=== PATIENT | male | born 1970 ===

== ENCOUNTER 2020-04-17 10:06 | Outpatient (RCR) | payer OTHER, SELFPAY ==
[2020-04-17 13:08] LABS: Blood Urea Nitrogen 14 mg/dL (9-16); Estimated Glomerular Filt Rate > 60
== END 2020-05-27 12:00 | disposition home or self-care (01) ==
LOC: HO.WCC 10:06
PROVIDERS: Visit Provider Physician Assistant Surgical
DX: E11.621 Type 2 diabetes mellitus with foot ulcer (principal); L97.523 Non-pressure chronic ulcer of other part of left foot with necrosis of muscle; E11.51 Type 2 diabetes mellitus with diabetic peripheral angiopathy without gangrene; L08.9 Local infection of the skin and subcutaneous tissue, unspecified; L03.116 Cellulitis of left lower limb; F17.210 Nicotine dependence, cigarettes, uncomplicated; Z79.2 Long term (current) use of antibiotics
CPT/HCPCS: 10061; 82565; 84520; 99213

== ENCOUNTER 2020-04-22 12:03 | Outpatient (REF) | payer OTHER, SELFPAY ==
--- NOTE | 2020-04-22 12:11 | MR_ITS ---
EXAMINATION: MRI LEFT FOOT CLINICAL INFORMATION: Left foot infection, deep abscess, osteomyelitis. COMPARISON: Prior x-rays including 04/02/2020. TECHNIQUE: Imaging of the left foot without contrast in a high-field magnet. FINDINGS: Incomplete study. Technologist notes indicate limited study. No contrast. Patient in pain, involuntary motion. Unable to complete the study. Limited evaluation on the provided sequences. There is a sagittal STIR, T1 sequence; short axis STIR sequence. There is significant motion artifact on the sequences degrading images, limiting evaluation. There is soft tissue swelling on the plantar aspect of the midfoot, with ultrasound as ulceration.. There is a focus of low T1 and T2-signal in the plantar soft tissues extending from the area of ulceration, superiorly to the region of the plantar aponeurosis. This measures approximately 2.8 cm in AP length, and measures 1 cm transverse, 0.4 cm AP. For example reference images 4:17-18; image 6:15-10. This of uncertain etiology, could represent a foreign body or perhaps wound packing material.. There is prominent surrounding T2 bright signal. This is contiguous with T2 bright focus extending both medially and laterally, overall extending over a distance of approximally 5.6 cm transverse, 5.6 cm in length. Reference image 15 series 6. There is ill-defined edema in the plantar subcutaneous tissues more anteriorly as well. Findings are incompletely evaluated and could represent infectious or inflammatory process, and could represent phlegmonous change, with abscess not excluded. Limited incomplete evaluation of the osseous structures. No definite gross evidence of osteomyelitis is seen. There is edema in the intrinsic muscles of the foot, which may reflect sequela of denervation changes, myositis. IMPRESSION: 1. Limited incomplete study. There is incomplete evaluation of the structures. Repeat MRI is recommended. 2. Soft tissue swelling and ulceration on the plantar aspect of the midfoot. There is a linear focus of low signal in the plantar soft tissues extending from the area of the skin ulceration dorsally to the level of the plantar aponeurosis measuring 2.8 x 1 x 0.4 cm. This is incompletely evaluated, and could represent foreign body, packing gauze. Please clinically correlate. There is prominent surrounding T2-signal surrounding this abnormal focus, as well as T2 bright focus extending in the plantar soft tissues medially and laterally, as detailed above. Additional plantar subcutaneous T2-signal changes/edema more anteriorly as well. This is incompletely evaluated, which could represent infectious or inflammatory process, with phlegmonous changes, abscess not excluded. 3. Diffuse edema in the intrinsic muscles of foot, differential considerations include sequela of denervation changes, myositis. This critical result was discussed with Dr. Holm at 4:45 PM on 04/22/2020 and it was ascertained that the content and urgency of the report was understood at the time of direct communication.
== END 2020-04-22 12:04 | disposition home or self-care (01) ==
LOC: HO.MRI 12:03
PROVIDERS: Visit Provider Surgery
DX: L08.9 Local infection of the skin and subcutaneous tissue, unspecified (principal)
CPT/HCPCS: 73718

== ENCOUNTER 2020-04-27 13:37 | Inpatient (IN) | payer OTHER, SELFPAY ==
[2020-04-27] VITALS (7 sets, daily range): BP systolic 144–192; BP diastolic 87–106; PULSE 83–102; RESP 16–19; TEMP 37.1–37.8; O2SAT 96–99; BMI 38.3
--- NOTE | 2020-04-27 14:18 | ED.WOUNDLAC ---
HPI - Wound/Laceration General Chief Complaint: Wound/Laceration Stated Complaint: fluid on bottom of l foot Time Seen by Provider: 04/27/20 14:18 Source: patient Mode of arrival: ambulatory Limitations: no limitations History of Present Illness HPI narrative: 49 yo male with DM has chronic L foot wound but wound is worsening he has more swelling over the past few days and is currently on doxycycline he now notes that there is purulence coming out of his wounds this past weekend, had MRI on 04/22 RESULTS of MRI 1. Limited incomplete study. There is incomplete evaluation of the structures. Repeat MRI is recommended. 2. Soft tissue swelling and ulceration on the plantar aspect of the midfoot. There is a linear focus of low signal in the plantar soft tissues extending from the area of the skin ulceration dorsally to the level of the plantar aponeurosis measuring 2.8 x 1 x 0.4 cm. This is incompletely evaluated, and could represent foreign body, packing gauze. Please clinically correlate. There is prominent surrounding T2-signal surrounding this abnormal focus, as well as T2 bright focus extending in the plantar soft tissues medially and laterally, as detailed above. Additional plantar subcutaneous T2-signal changes/edema more anteriorly as well. This is incompletely evaluated, which could represent infectious or inflammatory process, with phlegmonous changes, abscess not excluded. 3. Diffuse edema in the intrinsic muscles of foot, differential considerations include sequela of denervation changes, myositis. Onset (ago): week(s) Extremity Location: left: foot Place: home Patient tetanus UTD: Yes Context: accidental Associated symptoms: pain and loss of feeling/numbness Related Data Home Medications Medication Instructions Recorded Confirmed doxycycline hyclate 100 mg PO BID 04/27/20 meloxicam 7.5 mg PO DAILY 04/27/20 Allergies Allergy/AdvReac Type Severity Reaction Status Date / Time Penicillins [PENICILLINS] Allergy Unknown UNKNOWN Verified 04/27/20 14:30 Review of Systems Review of Systems: Constitutional : No Fever, No Chills ENT/Mouth : No sore throat, No Rhinorrhea Eyes: No Eye Pain, No Swelling, No Redness Cardiovascular : No Chest Pain, No SOB Respiratory : No Cough, No Sputum Gastrointestinal : No Nausea, No Vomiting, No Diarrhea, No abdominal Pain Genitourinary : No Dysuria, No Hematuria Musculoskeletal : positive joint pain, No Myalgias, No Joint Swelling Skin : No Skin Lesions, positive skin rash Neuro : No Weakness, No Numbness, No Headache Psych : No Anxiety, No Depression Heme/Lymph: No Bruising, No Bleeding,No Lymphadenopathy Endocrine : No Polyuria, No Polydipsia All other systems reviewed and are negative [facility] Past Medical History Medical History Asthma Diabetes Neuropathy Umbilical hernia Surgical History H/O hernia repair Social History Social History (Updated 04/27/20 @ 14:40 by Shena Gutierrez DO) Smoking Status: Current every day smoker Use of substances other than those prescribed or required for medical reasons: No Advance Directives: No Advance Directives Information Provided: No Physical Exam Vital Signs: Vital Signs: Vital Signs Temp Pulse Resp BP Pulse Ox 04/27/20 15:34 98.8 F 83 16 169/95 H 99 04/27/20 14:23 99.4 F 95 18 192/106 H 99 Body Mass Index 38.3 Appearance: Alert. Oriented X3. No acute distress. Eyes: Pupils equal, round and reactive to light. ENT: Pharynx normal. Neck: Normal inspection. Neck supple. CVS: Normal heart rate and rhythm. Pulses normal. Respiratory: No respiratory distress. Breath sounds normal. Abdomen: Soft and nontender. Skin: Skin warm and dry. Normal skin color. Normal skin turgor. Extremities: LLE mild non pitting edema of ankle, L foot plantar surface open wound noted with medium purulent area near the ball of foot, purulence comes out of wound with very strong odor, foot is swollen/warm to touch/erythematous. No calf ttp Neuro: Oriented X 3. No motor deficit. No sensory deficit. Course Course Course Narrative: Dr. Keane will I/D tomorrow after admission and IV antibiotics MDM - Wound/Laceration MDM Narrative Medical decision making narrative: 49 yo DM male with hx of foot ulcer now worsening and with purulence coming out of wound, already on doxy at home, will need labs, cultures, IV antibiotics, surgery consult and admission for further IV antibiotics Discharge Plan Discharge Prescriptions: No Action doxycycline hyclate 100 mg capsule 100 mg PO BID RF: 0 meloxicam 7.5 mg tablet 7.5 mg PO DAILY RF: 0
[2020-04-27 16:48] LABS: MANUAL DIFF FLAG NO
[2020-04-27 16:49] LABS: Basophils Percent Auto 0.3 % (0-2); Eosinophils Absolute Auto 0.3 X10*3/uL (0.0-0.4); Eosinophils Percent Auto 2.5 % (0-4); Hematocrit 39.2 % (42-52); Hemoglobin 12.2 g/dl (14.0-18.0); Imm Gran Abs Auto 0.05 X10*3/uL (0.00-0.03); Imm Gran Pct Auto 0.4 % (0.0-0.4); Lymphocytes Absolute Auto 1.3 X10*3/uL (1.2-4.9); Lymphocytes Percent Auto 11.1 % (20-40); Mean Corpuscular HGB Conc 31.1 g/dl (31.0-36.0); Mean Corpuscular Hemoglobin 26.5 pg (27.0-33.0); Mean Corpuscular Volume 85.2 fL (80-98); Mean Platelet Volume 10.5 fL (9.4-12.4); Monocytes Percent Auto 8.7 % (2-11); Neutrophils Absolute Auto 8.8 X10*3/uL (2.0-8.3); Platelet Count 403 X10*3/uL (160-400); Red Cell Distribution Width 12.5 % (11.0-16.0); White Blood Count 11.4 X10*3/uL (4.8-10.8)
[2020-04-27] MEDS: ondansetron HCL 4 MG/2 ML VIAL IVPUSH (16:53)
[2020-04-27] MEDS: Morphine Sulfate 4 MG/ML CARTRIDGE IVPUSH (16:53)
[2020-04-27 16:56] LABS: INTERNATIONAL NORM RATIO 1.1 (0.9-1.1)
[2020-04-27] MEDS: levoFLOXacin/D5W 500 MG/100 ML PIGGYBACK 100 MG IV (16:58)
[2020-04-27 16:59] LABS: Partial Thromboplastin Time 41.2 SEC (24.1-38.0)
[2020-04-27 17:16] LABS: Lactic Acid 1.8 mmol/L (0.5-2.0)
[2020-04-27 17:26] LABS: Alanine Aminotransferase 13 U/L (0-40); Albumin Level 3.3 g/dL (3.5-5.0); Alkaline Phosphatase 109 U/L (39-117); Anion Gap 14 (12-20); Aspartate Amino Transferase 10 U/L (5-37); Bilirubin Direct < 0.2 mg/dL (0.0-0.5); Bilirubin Total 0.2 mg/dL (0.0-1.0); Blood Urea Nitrogen 15 mg/dL (9-16); Calcium 8.8 mg/dL (8.4-10.2); Carbon Dioxide 31 mmol/L (22-29); Chloride 99 mmol/L (96-108); Creatinine Clr Calc Pharmacy 96.6; Estimated Glomerular Filt Rate > 60; Glucose Random 401 mg/dL (60-115); Magnesium 2.1 mg/dL (1.6-2.6); Potassium 4.6 mmol/l (3.3-5.1); Sodium 139 mmol/L (135-145); Total Protein 6.7 g/dL (6.5-8.0)
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
--- NOTE | 2020-04-27 20:48 | PC.NURSE ---
POC IS 334 ,RN RADHA AWARE.
--- NOTE | 2020-04-27 20:52 | PM.IMHP ---
History of Present Illness Date of Service: 04/27/20 Chief Complaint: left foot wound 49 y/o male with PMHX of Uncontrolled DM who presented from home due to left foot wound. Per patient's history, for the past 1 month has been having a left foot wound which has been worsening with time and now is associated with a purulent discharge and chills. Patient has been evaluated multiple times by wound care clinic, one week ago had an MRI which was positive for swelling of the plantar surface of left foot with phlegmonous changes suspected for underlying abscess and myositis. General surgery was consulted Dr Keane who upon evaluation of the patient recommends I and D in the am with possible debridement and Medicine admission for IV antbx. Medicine admission given. Patient seen and evaluated at the bedside, ROS as above otherwise negative. Physical exam positive for left foot ulcer with clean margins, no evidence of discharge. Gauze applied. PMHX: Uncontrolled DM, smoker, Obese PSx: none Toxic habits: No hx of alcohol abuse or IVDA, Hx of smoking Review of Systems Constitutional: Constitutional: Reports other (left foot purulent wound ) Neurologic: Denies focal weakness and Denies convulsions [facility] Medical History Asthma Diabetes Neuropathy Umbilical hernia Functional capacity: independent ambulation Family history: reviewed and not pertinent Surgical History H/O hernia repair Social History Alcohol intake: never Smoking Status: Current every day smoker Use of substances other than those prescribed or required for medical reasons: No Advance Directives: No Advance Directives Information Provided: No Meds Allergies Allergy/AdvReac Type Severity Reaction Status Date / Time Penicillins [PENICILLINS] Allergy Unknown UNKNOWN Verified 04/27/20 14:30 Home Medications Medication Instructions Recorded Confirmed Type doxycycline hyclate 100 mg PO BID 04/27/20 04/27/20 History meloxicam 7.5 mg PO DAILY 04/27/20 04/27/20 History Physical Exam Vital Signs and Narrative: Vital Signs: Last Vital Signs Temp 99.1 F 04/27/20 20:49 Pulse 93 04/27/20 20:49 Resp 16 04/27/20 20:49 BP 154/92 H 04/27/20 20:49 Pulse Ox 96 04/27/20 20:49 Body Mass Index 38.3 Const: General: cooperative, healthy appearing and comfortable Orientation/consciousness: patient oriented x3 HENMT: Head: Yes normal to inspection Eyes: General: appearance normal, both eyes and all related structures Neck: Yes normal visual inspection Chest: Chest palpation & inspection: normal inspection of the chest Resp: Effort & Inspection: normal respiratory effort Auscultation: clear to auscultation bilaterally Cardio: Jugular venous distension: no JVD Rhythm: regular rhythm Heart sounds: S1 normal heart sound present and S2 normal heart sound present GI: Inspection: Yes normal to inspection Skin: Nails: other (left foot wound in plantar aspect of approximately 5 cm in diameter, clean ) Neuro: General: patient oriented x3 Psych: Appearance: grossly normal Results Labs Labs: Laboratory Tests 04/27/20 04/27/20 04/27/20 16:38 16:38 16:38 WBC 11.4 H RBC 4.60 Hgb 12.2 L Hct 39.2 L MCV 85.2 MCH 26.5 L MCHC 31.1 RDW 12.5 Plt Count 403 H MPV 10.5 Immature Gran % (Auto) 0.4 Neut % (Auto) 77.0 H Lymph % (Auto) 11.1 L [place] % (Auto) 8.7 Eos % (Auto) 2.5 Baso % (Auto) 0.3 Lymph # (Auto) 1.3 [place] # (Auto) 1.0 Eos # (Auto) 0.3 Baso # (Auto) 0.0 Abs Immat Gran (auto) 0.05 H Absolute Neuts (auto) 8.8 H Absolute Nucleated RBC 0.000 Nucleated RBC % (auto) 0.0 PT 13.0 INR 1.1 APTT 41.2 H Sodium 139 Potassium 4.6 Chloride 99 Carbon Dioxide 31 H Anion Gap 14 BUN 15 Creatinine 1.10 Estim Creat Clear Calc 96.6 Estimated GFR > 60 Random Glucose 401 H* Lactic Acid Calcium 8.8 Magnesium 2.1 Total Bilirubin 0.2 Direct Bilirubin < 0.2 AST 10 ALT 13 Alkaline Phosphatase 109 Total Protein 6.7 Albumin 3.3 L 04/27/20 16:38 WBC RBC Hgb Hct MCV MCH MCHC RDW Plt Count MPV Immature Gran % (Auto) Neut % (Auto) Lymph % (Auto) [place] % (Auto) Eos % (Auto) Baso % (Auto) Lymph # (Auto) [place] # (Auto) Eos # (Auto) Baso # (Auto) Abs Immat Gran (auto) Absolute Neuts (auto) Absolute Nucleated RBC Nucleated RBC % (auto) PT INR APTT Sodium Potassium Chloride Carbon Dioxide Anion Gap BUN Creatinine Estim Creat Clear Calc Estimated GFR Random Glucose Lactic Acid 1.8 Calcium Magnesium Total Bilirubin Direct Bilirubin AST ALT Alkaline Phosphatase Total Protein Albumin Assessment and Plan (1) Diabetic ulcer of foot associated with diabetes mellitus due to underlying condition, with fat layer exposed: Qualifiers: Diabetic foot ulcer location: unspecified part of foot Laterality: left Qualified Code(s): E08.621 - Diabetes mellitus due to underlying condition with foot ulcer; L97.522 - Non-pressure chronic ulcer of other part of left foot with fat layer exposed Status: Acute (2) Obesity: Status: Acute (3) Smoker: Status: Acute Start with Vancomycin for gram positive coverage Follow up vanco trough as ordered Start with Levaquin given patient is penicillin allergic. For gram neg coverage Follow up Bcx I and D with possible debridement in the am by general surgery Dr Keane Insulin regimen as ordered. Keep BS between 140-180 mg/dl follow up hemoglobin A1C
[2020-04-27 20:55] LABS: Glucose, Whole Blood 334 mg/dL (60-115)
--- NOTE | 2020-04-27 22:10 | PC.NURSE ---
called floor to give report.
--- NOTE | 2020-04-27 22:14 | PC.NURSE ---
DENIES SYMPTOMS OF ELEVATED B/P. NO S/S OF DISTRESS
[2020-04-27 22:41] LABS: SARS COV2 PCR INHOUSE NEGATIVE (Negative)
--- NOTE | 2020-04-27 22:52 | PC.NURSE ---
Report given to medical office specialist. Pt is ready for transfer.
[2020-04-27] MEDS: 0.9 % Sodium Chloride Flush 3 ML SYRINGE IVFLUSH (23:44)
[2020-04-28] VITALS (15 sets, daily range): BP systolic 124–189; BP diastolic 73–96; PULSE 72–105; RESP 16–21; TEMP 36.2–38.1; O2SAT 93–99; BMI 38.3
[2020-04-28] MEDS: Morphine Sulfate 2 MG/ML CARTRIDGE 1 MG IVPUSH (02:46)
[2020-04-28 06:42] LABS: Basophils Percent Auto 0.2 % (0-2); Eosinophils Absolute Auto 0.3 X10*3/uL (0.0-0.4); Eosinophils Percent Auto 2.1 % (0-4); Hematocrit 35.3 % (42-52); Hemoglobin 11.1 g/dl (14.0-18.0); Imm Gran Abs Auto 0.06 X10*3/uL (0.00-0.03); Imm Gran Pct Auto 0.5 % (0.0-0.4); Lymphocytes Absolute Auto 1.4 X10*3/uL (1.2-4.9); Lymphocytes Percent Auto 11.2 % (20-40); MANUAL DIFF FLAG SCAN; Mean Corpuscular HGB Conc 31.4 g/dl (31.0-36.0); Mean Corpuscular Hemoglobin 26.4 pg (27.0-33.0); Mean Platelet Volume 10.8 fL (9.4-12.4); Monocytes Absolute Auto 1.5 X10*3/uL (0.1-1.2); Monocytes Percent Auto 12.5 % (2-11); Neutrophils Absolute Auto 8.9 X10*3/uL (2.0-8.3); Neutrophils Percent Auto 73.5 % (45-73); Platelet Count 386 X10*3/uL (160-400); Red Cell Distribution Width 12.5 % (11.0-16.0); SCAN SMEAR FLAG 1; White Blood Count 12.1 X10*3/uL (4.8-10.8)
[2020-04-28 06:59] LABS: Estimated Average Glucose 289 mg/dL; Hemoglobin A1c % 11.7 %
[2020-04-28 07:05] LABS: Anion Gap 12 (12-20); Blood Urea Nitrogen 14 mg/dL (9-16); Calcium 8.2 mg/dL (8.4-10.2); Carbon Dioxide 26 mmol/L (22-29); Chloride 101 mmol/L (96-108); Creatinine Clr Calc Pharmacy 107.3; Estimated Glomerular Filt Rate > 60; Glucose Random 296 mg/dL (60-115); Potassium 4.4 mmol/l (3.3-5.1); Sodium 135 mmol/L (135-145)
[2020-04-28 07:09] LABS: Glucose, Whole Blood 260 mg/dL (60-115)
[2020-04-28] MEDS: 0.9 % Sodium Chloride Flush 3 ML SYRINGE IVFLUSH ×3 (07:13→23:10)
[2020-04-28 08:01] LABS: SLIDE REVIEW VERIFIED
[2020-04-28] MEDS: NaPROXEN 250 MG TABLET PO (08:31)
[2020-04-28] MEDS: Insulin Lispro 100 UNIT/ML 3 ML VIAL SUBCUT ×3 (08:32→20:57)
--- NOTE | 2020-04-28 10:47 | MHC.CM.PN ---
dc plan home no servcies ,pt has own transportaion home when she is dcd
[2020-04-28 11:12] LABS: Glucose, Whole Blood 190 mg/dL (60-115)
[2020-04-28] MEDS: ceFAZolin Sodium/Dextrose,Iso 2 GM/50 ML PIGGYBACK IV (12:11)
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
--- NOTE | 2020-04-28 12:29 | MHC.SHP ---
Pre-Procedural Eval Section B Chief Complaint: LEFT FOOT DIABETIC ULCER Allergies: Allergies Allergy/AdvReac Type Severity Reaction Status Date / Time Penicillins [PENICILLINS] Allergy Mild Rash Verified 04/28/20 10:57 Plan Patient has been examined and remains a candidate for the planned procedure
--- NOTE | 2020-04-28 13:07 | HO.PM.IMPN ---
Subjective Subjective Date of Service: 04/28/20 Interval History: Patient seen and examined at bedside patient reported pain in his foot Physical Exam Vital Signs: Vital Signs: Vital Signs Temp Pulse Resp BP Pulse Ox 04/28/20 11:40 97.2 F 80 16 158/90 H 99 04/28/20 11:11 97.5 F 83 17 174/93 H 97 04/28/20 07:03 99.7 F 93 21 H 168/78 H 98 04/28/20 05:10 99.0 F 04/28/20 04:00 100.6 F H 93 18 186/78 H 97 04/28/20 00:00 97.1 F 72 18 144/73 H 93 04/27/20 22:12 100.0 F 97 17 180/95 H 98 04/27/20 20:49 99.1 F 93 16 154/92 H 96 04/27/20 19:45 99.1 F 85 16 144/87 H 97 04/27/20 17:48 99.8 F 102 H 19 165/96 H 99 04/27/20 16:53 19 04/27/20 15:34 98.8 F 83 16 169/95 H 99 04/27/20 14:23 99.4 F 95 18 192/106 H 99 Body Mass Index 38.3 Const: General: cooperative, healthy appearing and comfortable Orientation/consciousness: patient oriented x3 HENMT: Head: Yes normal to inspection Eyes: General: appearance normal, both eyes and all related structures Neck: Neck: Yes normal visual inspection Chest: Chest palpation & inspection: normal inspection of the chest Resp: Effort & Inspection: normal respiratory effort Auscultation: clear to auscultation bilaterally Cardio: Jugular venous distension: no JVD Rhythm: regular rhythm Heart sounds: S1 normal heart sound present and S2 normal heart sound present GI: Inspection: Yes normal to inspection Skin: Nails: other (left foot wound in plantar aspect of approximately 5 cm in diameter, clean ) Neuro: General: patient oriented x3 Psych: Appearance: grossly normal Objective Data Current Medications Generic Name Dose Route Start Last Admin Trade Name Freq PRN Reason Stop Dose Admin Heparin Sodium (Porcine) 5,000 unit 04/28/20 13:00 Heparin Sodium,Porcine 5,000 Unit/Ml Vial SUBCUT Q8H [facility] Levofloxacin 750 mg in 150 mls @ 100 mls/hr 04/28/20 17:00 Levaquin IV Q24H [facility] Vancomycin HCl 1,500 mg/ 300 mls @ 200 mls/hr 04/28/20 07:00 04/28/20 08:53 Sodium Chloride IV Infused Q12H [facility] Infusion Insulin Human Lispro 5 unit 04/28/20 07:30 04/28/20 08:32 Insulin Lispro 100 Unit/Ml 3 Ml Vial SUBCUT 5 unit QIDACHS [facility] Administration Naproxen 250 mg 04/28/20 09:00 04/28/20 08:31 Naproxen 250 Mg Tablet PO 250 mg BID [facility] Administration Pharmacy Consult 1 each 04/27/20 14:29 Consult Rx Perform Med Rec MISCELLANE ONCE PRN Consult order Sodium Chloride 3 ml 04/28/20 00:00 04/28/20 07:13 0.9 % Sodium Chloride Flush 3 Ml Syringe IVFLUSH 3 ml QSHIFT [facility] Administration Labs CBC & Chem 7: 04/28/20 05:58 04/28/20 05:58 Assessment and Plan (1) Diabetic ulcer of foot associated with diabetes mellitus due to underlying condition, with fat layer exposed: Status: Acute (2) Obesity: Status: Acute (3) Smoker: Status: Acute Assessment and Plan: left diabetic foot infection with cellulitis continue Vanco and Levaquin monitor Vanco trough follow-up cultures id and surgery consulted plan for I and D in the OR by surgery today diabetes mellitus patient reported he was not taking his medication continue sliding scale insulin monitor blood glucose DVT prophylaxis heparin subcu
--- NOTE | 2020-04-28 13:08 | PM.OP ---
Brief Operative Note Date of procedure: 04/28/20 Pre-op diagnosis: diabetic foot ulcer, left with abscess Post-op diagnosis: same Procedure: incision and drainage of left foot abscess Surgeon: TABITHA BRAVO MD Anesthesia: [employer] Teacher: Aixa Navarrete Estimated blood loss (mL): 10 Pathology: other (culture left foot abscess) Condition: stable Disposition: PACU
[2020-04-28] MEDS: oxyCODONE HCl Immed Release 5 MG TABLET PO ×2 (13:19→20:56)
--- NOTE | 2020-04-28 14:05 | OP_ITS ---
SURGEON: Guido Keane MD INDICATIONS: The patient is a 49-year-old male, who has had diabetes, who was had an ulcer on the left foot for about 2 to 3 months. This has been gradually worsening with increasing swelling, pain and tenderness. He had an MRI suggestive of phlegmonous changes versus an abscess on the plantar aspect of the left foot last week. He was therefore referred by the [facility]. He was admitted last night for this. I explained to him the technique of this planned procedure. He had significant swelling on the entire left foot mostly on the plantar aspect with ulcer and drainage. He understood the risks, benefits, and alternatives, and he had given consent. PREOPERATIVE DIAGNOSIS: Plantar abscess, with necrotic skin and subcutaneous tissue, left foot. POSTOPERATIVE DIAGNOSIS: Plantar abscess, with necrotic skin and subcutaneous tissue, left foot. PROCEDURE PERFORMED: I and D of plantar abscess with excisional debridement of the left foot. ESTIMATED BLOOD LOSS: COMPLICATIONS: ANESTHESIA: ASSISTANTS: SPECIMENS: DESCRIPTION OF PROCEDURE: He was brought to the operating room and placed in supine position under general anesthesia via laryngeal mask airway. The left foot was prepped and draped in usual sterile fashion. A surgical time-out was done. The patient received cefazolin 2 g IV preoperatively. Examination of the plantar aspect of the left foot revealed a very large induration. There was cellulitis as well along with an ulcer.. I opened sole longitudinally using blade #15 through the skin and subcutaneous layer to enter this cavity. There was a small amount of pus that was drained. Cultures of these were taken. I extended the incision to expose the entire cavity. This was about 6 to 7 cm long incision to open up the entire subcutaneous layer of the plantar aspect. I used my finger to bluntly dissect the cavity to make sure that there were no loculations. There was no other sinus tracts that I could feel. I excised the nonviable skin and subcutaneous tissue using Turcios scissors. I copiously irrigated this big abscess cavity. I then packed this with 1-inch iodoform. I applied thick dressings and wrapped the entire foot with a Kerlix roll. The patient tolerated the procedure well. There were no complications noted. He was extubated without difficulty in the operating room and transferred to recovery room with stable vital signs. Minimal blood loss about 25 mL. Initial and final counts of sponges and instruments were correct. MD DONNA Winslow/MODL / [id number] C[place]
[2020-04-28] MEDS: Heparin Sodium,Porcine 5,000 UNIT/ML VIAL 5000 UNIT SUBCUT ×2 (14:16→20:56)
--- NOTE | 2020-04-28 15:23 | MHC.CM.PN ---
nurse care manger note PER DOCUMENTATION PATIENT WENT TO SURGERY TODAY ,(SIGNIFICANT SWELLING OF THE ENTIRE LEFT FOOT MOSTLY ONTHE PLANTAR ASPECT WITH ULCER AND DRAINAGE , S/P INCISION AND DRAINAGE OF PLANTAR ABSCESS WITH EXCISIONAL DEBRIDEMENT OF THE LEFT FOOT 6-7CM LONG , PACKED WITH 1 INCH IODOFORM THICK DRESSINGS WRAPPED THE ENTIRE FOOT WITH KERLIX DRESSING. CARE ,WEIGHT LOSS CENTRE MANAGER TO CONTINUE TO FOLOW
[2020-04-28 16:29] LABS: Glucose, Whole Blood 269 mg/dL (60-115)
[2020-04-28] MEDS: levoFLOXacin/D5W 750 MG/150 ML PIGGYBACK 100 MG IV (16:54)
[2020-04-28 19:01] LABS: Vancomycin Trough 6.8 mcg/mL (10.0-20.0)
[2020-04-28 20:46] LABS: Glucose, Whole Blood 231 mg/dL (60-115)
[2020-04-28] MEDS: hydrALAZINE HCl 20 MG/ML VIAL 5 MG IVPUSH (21:00)
[2020-04-29] VITALS (7 sets, daily range): BP systolic 136–170; BP diastolic 79–92; PULSE 91–100; RESP 17–20; TEMP 36.7–37.9; O2SAT 93–97
--- NOTE | 2020-04-29 00:21 | PC.NURSE ---
pt's bp at 1999 was 189/96. [employer] message sent to dr. rene gallegos, 5 mg iv hydralazine ordered and administered, bp after 1 hour was 154/87.
[2020-04-29] MEDS: oxyCODONE HCl Immed Release 5 MG TABLET PO ×3 (00:57→09:11)
[2020-04-29] MEDS: Heparin Sodium,Porcine 5,000 UNIT/ML VIAL 5000 UNIT SUBCUT ×3 (05:10→21:10)
[2020-04-29 07:40] LABS: Glucose, Whole Blood 269 mg/dL (60-115)
[2020-04-29 07:59] LABS: Glucose, Whole Blood 197 mg/dL (60-115)
[2020-04-29] MEDS: Insulin Lispro 100 UNIT/ML 3 ML VIAL SUBCUT ×4 (08:04→21:11)
[2020-04-29] MEDS: Morphine Sulfate 2 MG/ML CARTRIDGE IVPUSH ×4 (08:07→21:09)
[2020-04-29] MEDS: 0.9 % Sodium Chloride Flush 3 ML SYRINGE IVFLUSH ×3 (08:08→21:14)
[2020-04-29 08:24] LABS: Basophils Percent Auto 0.2 % (0-2); Eosinophils Absolute Auto 0.2 X10*3/uL (0.0-0.4); Hematocrit 37.3 % (42-52); Hemoglobin 11.5 g/dl (14.0-18.0); Imm Gran Pct Auto 0.7 % (0.0-0.4); Lymphocytes Absolute Auto 1.5 X10*3/uL (1.2-4.9); Lymphocytes Percent Auto 10.2 % (20-40); MANUAL DIFF FLAG SCAN; Mean Corpuscular HGB Conc 30.8 g/dl (31.0-36.0); Mean Corpuscular Hemoglobin 26.2 pg (27.0-33.0); Mean Platelet Volume 10.7 fL (9.4-12.4); Monocytes Percent Auto 13.2 % (2-11); Neutrophils Absolute Auto 11.2 X10*3/uL (2.0-8.3); Neutrophils Percent Auto 74.7 % (45-73); Platelet Count 379 X10*3/uL (160-400); Red Blood Count 4.39 X10*6/uL (4.60-5.80); Red Cell Distribution Width 12.5 % (11.0-16.0); SCAN SMEAR FLAG 1
--- NOTE | 2020-04-29 08:49 | MHC.CM.PN ---
at this time dc plan is home c resumption of wound care visits and possibly vna. cm to cont. to follow.
[2020-04-29 09:02] LABS: Anion Gap 12 (12-20); Blood Urea Nitrogen 18 mg/dL (9-16); Calcium 8.2 mg/dL (8.4-10.2); Carbon Dioxide 30 mmol/L (22-29); Chloride 98 mmol/L (96-108); Creatinine Clr Calc Pharmacy 107.3; Estimated Glomerular Filt Rate > 60; Glucose Random 198 mg/dL (60-115); Potassium 4.3 mmol/l (3.3-5.1); Sodium 136 mmol/L (135-145)
[2020-04-29 09:09] LABS: SLIDE REVIEW VERIFIED
--- NOTE | 2020-04-29 09:24 | HO.POSTANES ---
Post Anesthesia Evaluation Post Anesthesia Evaluation Vital Signs: Vital Signs Temp Pulse Resp BP Pulse Ox 04/29/20 07:29 100.2 F 91 20 170/89 H 95 04/29/20 04:00 98.5 F 96 20 152/92 H 97 04/29/20 00:10 99.6 F 100 20 150/88 H 95 04/28/20 22:06 100 154/87 H Anesthesia: General Mental Status: Awake Pain Control: Satisfactory Nausea/Vomiting: None Hydration: Adequate Anesthesia-Related Issues: No Anes. Related Issues
[2020-04-29 11:28] LABS: Glucose, Whole Blood 277 mg/dL (60-115)
--- NOTE | 2020-04-29 13:13 | PM.PNGS ---
Subjective Subjective Interval history: Had some staining of the dressings, needed to be reinforced last night in this morning otherwise no new complaints some pain on left foot but not severe Physical Exam Vital Signs: Vital Signs: Vital Signs Temp Pulse Resp BP Pulse Ox 04/29/20 11:13 99.9 F 92 19 164/82 H 96 04/29/20 07:29 100.2 F 91 20 170/89 H 95 04/29/20 04:00 98.5 F 96 20 152/92 H 97 04/29/20 00:10 99.6 F 100 20 150/88 H 95 04/28/20 22:06 100 154/87 H 04/28/20 21:00 105 H 184/95 H 04/28/20 20:00 99.2 F 95 18 189/96 H 97 04/28/20 14:16 97.1 F 84 19 167/83 H 97 04/28/20 13:38 83 17 154/91 H 97 04/28/20 13:23 83 17 164/93 H 97 04/28/20 13:18 87 16 152/89 H 96 Body Mass Index 38.3 Const: General: comfortable and no acute distress Extrem: Other: left foot open wound from I&D site and debridement clean, packing removed, no pus, persistent edema noted but cellulitis seems improved Progress Note: A&P Assessment and plan (1) Diabetic ulcer of foot associated with diabetes mellitus due to underlying condition, with fat layer exposed: Status: Acute Assessment and Plan: status post I and D and debridement of plantar abscess left foot. I changes dressings and remove his packing. I applied a light packing with gauze. I wrapped the foot with thick dressings Kerlix roll. I instructed him to continue elevation of the foot on pillows. Follow up on cultures wound care Fall Risk Details Current Medications: Current Medications Generic Name Dose Route Start Last Admin Trade Name Freq PRN Reason Stop Dose Admin Heparin Sodium (Porcine) 5,000 unit 04/28/20 13:00 04/29/20 12:25 Heparin Sodium,Porcine 5,000 Unit/Ml Vial SUBCUT 5,000 unit Q8H [facility] Administration Levofloxacin 750 mg in 150 mls @ 100 mls/hr 04/28/20 17:00 04/28/20 18:34 Levaquin IV Infused Q24H [facility] Infusion Vancomycin HCl 2,000 mg/ 540 mls @ 270 mls/hr 04/29/20 09:00 04/29/20 12:46 Sodium Chloride IV Infused Q12H [facility] Infusion Insulin Human Lispro 0 unit 04/28/20 16:30 04/29/20 12:30 Insulin Lispro 100 Unit/Ml 3 Ml Vial SUBCUT 4 unit QIDACHS [facility] Administration Protocol Morphine Sulfate 2 mg 04/28/20 14:01 04/29/20 12:25 Morphine Sulfate 2 Mg/Ml Cartridge IVPUSH 2 mg Q3H PRN Administration Pain, Severe (Pain Scale 7-10) Oxycodone HCl 5 mg 04/28/20 14:01 04/29/20 09:11 Oxycodone Hcl Immed Release 5 Mg Tablet PO 5 mg Q4H PRN Administration Pain, Moderate (Pain Scale 4-6 Pharmacy Consult 1 each 04/27/20 14:29 Consult Rx Perform Med Rec MISCELLANE ONCE PRN Consult order Sodium Chloride 3 ml 04/28/20 00:00 04/29/20 08:08 0.9 % Sodium Chloride Flush 3 Ml Syringe IVFLUSH 3 ml QSHIFT [facility] Administration Time Spent With Patient Time: Total time spent is greater than 50% in coordination of care (as documented) at patient's floor/unit and/or counseling patient: Time with patient: 15 - 24 minutes
--- NOTE | 2020-04-29 13:58 | P.PNIM_ITS ---
Subjective Subjective Date of Service: 04/28/20 Interval History: Patient seen and examined at bedside patient reported foot pain, swelling still persistent Physical Exam Vital Signs: Vital Signs: Vital Signs Temp Pulse Resp BP Pulse Ox 04/29/20 11:13 99.9 F 92 19 164/82 H 96 04/29/20 07:29 100.2 F 91 20 170/89 H 95 04/29/20 04:00 98.5 F 96 20 152/92 H 97 04/29/20 00:10 99.6 F 100 20 150/88 H 95 04/28/20 22:06 100 154/87 H 04/28/20 21:00 105 H 184/95 H 04/28/20 20:00 99.2 F 95 18 189/96 H 97 04/28/20 14:16 97.1 F 84 19 167/83 H 97 Body Mass Index 38.3 Const: General: cooperative, healthy appearing and comfortable Orientation/consciousness: patient oriented x3 HENMT: Head: Yes normal to inspection Eyes: General: appearance normal, both eyes and all related structures Neck: Neck: Yes normal visual inspection Chest: Chest palpation & inspection: normal inspection of the chest Resp: Effort & Inspection: normal respiratory effort Auscultation: clear to auscultation bilaterally Cardio: Jugular venous distension: no JVD Rhythm: regular rhythm Heart sounds: S1 normal heart sound present and S2 normal heart sound present GI: Inspection: Yes normal to inspection Skin: Nails: other (left foot wound in plantar aspect of approximately 5 cm in diameter, clean ) Neuro: General: patient oriented x3 Psych: Appearance: grossly normal Objective Data Current Medications Generic Name Dose Route Start Last Admin Trade Name Freq PRN Reason Stop Dose Admin Heparin Sodium (Porcine) 5,000 unit 04/28/20 13:00 04/29/20 12:25 Heparin Sodium,Porcine 5,000 Unit/Ml Vial SUBCUT 5,000 unit Q8H [facility] Administration Levofloxacin 750 mg in 150 mls @ 100 mls/hr 04/28/20 17:00 04/28/20 18:34 Levaquin IV Infused Q24H [facility] Infusion Vancomycin HCl 2,000 mg/ 540 mls @ 270 mls/hr 04/29/20 09:00 04/29/20 12:46 Sodium Chloride IV Infused Q12H [facility] Infusion Insulin Human Lispro 0 unit 04/28/20 16:30 04/29/20 12:30 Insulin Lispro 100 Unit/Ml 3 Ml Vial SUBCUT 4 unit QIDACHS [facility] Administration Protocol Morphine Sulfate 2 mg 04/28/20 14:01 04/29/20 12:25 Morphine Sulfate 2 Mg/Ml Cartridge IVPUSH 2 mg Q3H PRN Administration Pain, Severe (Pain Scale 7-10) Oxycodone HCl 5 mg 04/28/20 14:01 04/29/20 09:11 Oxycodone Hcl Immed Release 5 Mg Tablet PO 5 mg Q4H PRN Administration Pain, Moderate (Pain Scale 4-6 Pharmacy Consult 1 each 04/27/20 14:29 Consult Rx Perform Med Rec MISCELLANE ONCE PRN Consult order Sodium Chloride 3 ml 04/28/20 00:00 04/29/20 08:08 0.9 % Sodium Chloride Flush 3 Ml Syringe IVFLUSH 3 ml QSHIFT [facility] Administration Labs CBC & Chem 7: 04/29/20 08:01 04/29/20 08:01 Microbiology Microbiology Results: Microbiology 04/28/20 12:53 Foot Left Gram Stain - Final 04/28/20 12:53 Foot Left Routine Culture - Preliminary Culture in progress. 04/27/20 16:38 Blood - Venous Blood Culture - Preliminary No growth after 24 hours. 04/27/20 16:38 Blood - Venous Blood Culture - Preliminary No growth after 24 hours. Assessment and Plan (1) Diabetic ulcer of foot associated with diabetes mellitus due to underlying condition, with fat layer exposed: Status: Acute (2) Obesity: Status: Acute (3) Smoker: Status: Acute Assessment and Plan: left diabetic foot infection with cellulitis status post I and D on 04/28 continue Vanco and Levaquin Vanco level low, Vanco dose was adjusted monitor Vanco trough follow-up cultures id and surgery following diabetes mellitus patient reported he was not taking his medication continue sliding scale insulin monitor blood glucose DVT prophylaxis heparin subcu
[2020-04-29 16:33] LABS: Glucose, Whole Blood 216 mg/dL (60-115)
[2020-04-29] MEDS: levoFLOXacin/D5W 750 MG/150 ML PIGGYBACK 100 MG IV (16:52)
[2020-04-29 20:04] LABS: Glucose, Whole Blood 185 mg/dL (60-115)
[2020-04-30] MEDS: oxyCODONE HCl Immed Release 5 MG TABLET PO ×3 (00:11→20:45)
[2020-04-30] MEDS: Heparin Sodium,Porcine 5,000 UNIT/ML VIAL 5000 UNIT SUBCUT ×3 (04:10→20:41)
[2020-04-30 04:15] VITALS: BP 151/85; PULSE 98; RESP 20; TEMP 37; O2SAT 95
[2020-04-30 06:59] VITALS: BP 166/89; PULSE 98; RESP 18; TEMP 36.8; O2SAT 96
[2020-04-30 07:26] LABS: Glucose, Whole Blood 343 mg/dL (60-115)
[2020-04-30] MEDS: Morphine Sulfate 2 MG/ML CARTRIDGE IVPUSH ×2 (07:56→11:34)
[2020-04-30] MEDS: Insulin Lispro 100 UNIT/ML 3 ML VIAL SUBCUT ×4 (07:59→20:41)
[2020-04-30] MEDS: 0.9 % Sodium Chloride Flush 3 ML SYRINGE IVFLUSH ×3 (07:59→20:40)
[2020-04-30] MEDS: Insulin Glargine,Hum.rec.anlog 100 UNIT/ML 10 ML VIAL 10 UNIT SUBCUT (09:27)
--- NOTE | 2020-04-30 10:56 | PM.PNGS ---
Subjective Subjective Interval history: Some pain on left foot but says he is better asking about discharge no events reported no bleeding from site Physical Exam Vital Signs: Vital Signs: Vital Signs Temp Pulse Resp BP Pulse Ox 04/30/20 06:59 98.2 F 98 18 166/89 H 96 04/30/20 04:15 98.6 F 98 20 151/85 H 95 04/29/20 23:57 98.3 F 96 20 136/79 97 04/29/20 19:18 98.1 F 100 19 156/82 H 97 04/29/20 15:36 99.7 F 93 17 144/87 H 93 04/29/20 11:13 99.9 F 92 19 164/82 H 96 Body Mass Index 38.3 Const: General: comfortable and no acute distress Cardio: Rhythm: regular rhythm GI: Palpation (GI): Soft to palpation, nontender and no guarding Extrem: Other: Left foot open wound appears clean, no pus; edema has improved significantly. Cellulitis seems resolved. Progress Note: A&P Assessment and plan (1) Diabetic ulcer of foot associated with diabetes mellitus due to underlying condition, with fat layer exposed: Status: Acute Assessment and Plan: status post debridement and I and D of the left foot. I changes dressings. The deep open wound appears clean. There is no pus. I applied a light packing using a moist gauze and wrapped the foot with thick dressings and a Kerlix roll. The edema has improved and the cellulitis seems to have resolved. He was instructed to keep the left foot elevated and to not put weight on this. He may be discharged today on antibiotics and should follow up with me in the office for wound check. Fall Risk Details Current Medications: Current Medications Generic Name Dose Route Start Last Admin Trade Name Freq PRN Reason Stop Dose Admin Heparin Sodium (Porcine) 5,000 unit 04/28/20 13:00 04/30/20 04:10 Heparin Sodium,Porcine 5,000 Unit/Ml Vial SUBCUT 5,000 unit Q8H [facility] Administration Levofloxacin 750 mg in 150 mls @ 100 mls/hr 04/28/20 17:00 04/29/20 18:31 Levaquin IV Infused Q24H [facility] Infusion Vancomycin HCl 2,000 mg/ 540 mls @ 270 mls/hr 04/29/20 09:00 04/30/20 10:03 Sodium Chloride IV Infused Q12H [facility] Infusion Insulin Glargine 10 unit 04/30/20 07:56 04/30/20 09:27 Insulin Glargine,Hum.Rec.Anlog 100 Unit/Ml 10 Ml Vial SUBCUT 10 unit DAILY [facility] Administration Insulin Human Lispro 0 unit 04/28/20 16:30 04/30/20 07:59 Insulin Lispro 100 Unit/Ml 3 Ml Vial SUBCUT 8 unit QIDACHS [facility] Administration Protocol Morphine Sulfate 2 mg 04/28/20 14:01 04/30/20 07:56 Morphine Sulfate 2 Mg/Ml Cartridge IVPUSH 2 mg Q3H PRN Administration Pain, Severe (Pain Scale 7-10) Oxycodone HCl 5 mg 04/28/20 14:01 04/30/20 00:11 Oxycodone Hcl Immed Release 5 Mg Tablet PO 5 mg Q4H PRN Administration Pain, Moderate (Pain Scale 4-6 Pharmacy Consult 1 each 04/27/20 14:29 Consult Rx Perform Med Rec MISCELLANE ONCE PRN Consult order Sodium Chloride 3 ml 04/28/20 00:00 04/30/20 07:59 0.9 % Sodium Chloride Flush 3 Ml Syringe IVFLUSH 3 ml QSHIFT [facility] Administration Time Spent With Patient Time: Total time spent is greater than 50% in coordination of care (as documented) at patient's floor/unit and/or counseling patient: Time with patient: less than 15 minutes
[2020-04-30 11:11] VITALS: BP 160/91; PULSE 96; RESP 18; TEMP 38.3; O2SAT 97
[2020-04-30 11:18] LABS: Glucose, Whole Blood 298 mg/dL (60-115)
[2020-04-30] MEDS: DAPTOmycin 500 MG in 0.9 % Sodium Chloride 50 ML 100 MG IV (12:59)
--- NOTE | 2020-04-30 15:15 | P.PNIM_ITS ---
Subjective Subjective Interval History: Patient seen and examined at bedside patient reported foot pain Physical Exam Vital Signs: Vital Signs: Vital Signs Temp Pulse Resp BP Pulse Ox 04/30/20 11:11 101 F H 96 18 160/91 H 97 04/30/20 06:59 98.2 F 98 18 166/89 H 96 04/30/20 04:15 98.6 F 98 20 151/85 H 95 04/29/20 23:57 98.3 F 96 20 136/79 97 04/29/20 19:18 98.1 F 100 19 156/82 H 97 04/29/20 15:36 99.7 F 93 17 144/87 H 93 Body Mass Index 38.3 Const: General: cooperative, healthy appearing and comfortable Orientation/consciousness: patient oriented x3 HENMT: Head: Yes normal to inspection Eyes: General: appearance normal, both eyes and all related structures Neck: Neck: Yes normal visual inspection Chest: Chest palpation & inspection: normal inspection of the chest Resp: Effort & Inspection: normal respiratory effort Auscultation: clear to auscultation bilaterally Cardio: Jugular venous distension: no JVD Rhythm: regular rhythm Heart sounds: S1 normal heart sound present and S2 normal heart sound present GI: Inspection: Yes normal to inspection Skin: Nails: other (left foot wound in plantar aspect of approximately 5 cm in diameter, clean ) Neuro: General: patient oriented x3 Psych: Appearance: grossly normal Objective Data Current Medications Generic Name Dose Route Start Last Admin Trade Name Freq PRN Reason Stop Dose Admin Heparin Sodium (Porcine) 5,000 unit 04/28/20 13:00 04/30/20 14:00 Heparin Sodium,Porcine 5,000 Unit/Ml Vial SUBCUT 5,000 unit Q8H SUPRIYA Administration Levofloxacin 750 mg in 150 mls @ 100 mls/hr 04/28/20 17:00 04/29/20 18:31 Levaquin IV Infused Q24H SUPRIYA Infusion Daptomycin 500 mg/ Sodium 60 mls @ 100 mls/hr 04/30/20 13:00 04/30/20 14:08 Chloride IV Infused Q24H SUPRIYA Infusion Insulin Glargine 10 unit 04/30/20 07:56 04/30/20 09:27 Insulin Glargine,Hum.Rec.Anlog 100 Unit/Ml 10 Ml Vial SUBCUT 10 unit DAILY SUPRIYA Administration Insulin Human Lispro 0 unit 04/28/20 16:30 04/30/20 11:34 Insulin Lispro 100 Unit/Ml 3 Ml Vial SUBCUT 6 unit QIDACHS [facility] Administration Protocol Morphine Sulfate 2 mg 04/28/20 14:01 04/30/20 11:34 Morphine Sulfate 2 Mg/Ml Cartridge IVPUSH 2 mg Q3H PRN Administration Pain, Severe (Pain Scale 7-10) Oxycodone HCl 5 mg 04/28/20 14:01 04/30/20 14:16 Oxycodone Hcl Immed Release 5 Mg Tablet PO 5 mg Q4H PRN Administration Pain, Moderate (Pain Scale 4-6 Pharmacy Consult 1 each 04/27/20 14:29 Consult Rx Perform Med Rec MISCELLANE ONCE PRN Consult order Sodium Chloride 3 ml 04/28/20 00:00 04/30/20 14:03 0.9 % Sodium Chloride Flush 3 Ml Syringe IVFLUSH 3 ml QSHIFT [facility] Administration Labs CBC & Chem 7: 04/29/20 08:01 04/29/20 08:01 Microbiology Microbiology Results: Microbiology 04/27/20 16:38 Blood - Venous Blood Culture - Preliminary No growth after 48 hours. 04/27/20 16:38 Blood - Venous Blood Culture - Preliminary No growth after 48 hours. 04/28/20 12:53 Foot Left Gram Stain - Final 04/28/20 12:53 Foot Left Routine Culture - Preliminary Culture in progress. Assessment and Plan (1) Diabetic ulcer of foot associated with diabetes mellitus due to underlying condition, with fat layer exposed: Status: Acute (2) Obesity: Status: Acute (3) Smoker: Status: Acute Assessment and Plan: left diabetic foot infection with cellulitis status post I and D on 04/28 continue Vanco and Levaquin Vanco level low, Vanco dose was adjusted monitor Vanco trough follow-up cultures id and surgery following Diabetes mellitus patient reported he was not taking his medication continue sliding scale insulin monitor blood glucose DVT prophylaxis heparin subcu
[2020-04-30 15:35] VITALS: BP 157/86; PULSE 95; RESP 18; TEMP 37.7; O2SAT 95
[2020-04-30 16:39] LABS: Glucose, Whole Blood 208 mg/dL (60-115)
[2020-04-30] MEDS: levoFLOXacin/D5W 750 MG/150 ML PIGGYBACK 150 MG IV (16:55)
[2020-04-30 19:51] VITALS: BP 152/90; PULSE 96; RESP 18; TEMP 37.4; O2SAT 97
[2020-04-30 20:37] LABS: Glucose, Whole Blood 177 mg/dL (60-115)
[2020-04-30 20:49] LABS: Vancomycin Trough 14.3 mcg/mL (10.0-20.0)
[2020-04-30 22:59] VITALS: BP 155/91; PULSE 90; RESP 18; TEMP 37.2; O2SAT 95
[2020-05-01] MEDS: oxyCODONE HCl Immed Release 5 MG TABLET PO ×3 (02:24→12:32)
[2020-05-01 02:51] VITALS: BP 157/91; PULSE 101; RESP 18; TEMP 36.9; O2SAT 97
[2020-05-01] MEDS: Heparin Sodium,Porcine 5,000 UNIT/ML VIAL 5000 UNIT SUBCUT ×2 (05:45→12:22)
[2020-05-01 07:36] VITALS: BP 170/96; PULSE 93; RESP 20; TEMP 36.7; O2SAT 98
[2020-05-01] MEDS: Insulin Lispro 100 UNIT/ML 3 ML VIAL SUBCUT ×2 (07:56→12:21)
[2020-05-01] MEDS: Insulin Glargine,Hum.rec.anlog 100 UNIT/ML 10 ML VIAL 15 UNIT SUBCUT (07:58)
[2020-05-01] MEDS: 0.9 % Sodium Chloride Flush 3 ML SYRINGE IVFLUSH (08:00)
[2020-05-01 09:57] LABS: Glucose, Whole Blood 191 mg/dL (60-115)
--- NOTE | 2020-05-01 10:25 | PM.PNGS ---
Subjective Subjective Interval history: no new complaints asking to go home Physical Exam Vital Signs: Vital Signs: Vital Signs Temp Pulse Resp BP Pulse Ox 05/01/20 07:36 98.0 F 93 20 170/96 H 98 05/01/20 02:51 98.4 F 101 H 18 157/91 H 97 04/30/20 22:59 98.9 F 90 18 155/91 H 95 04/30/20 19:51 99.4 F 96 18 152/90 H 97 04/30/20 15:35 99.8 F 95 18 157/86 H 95 04/30/20 11:11 101 F H 96 18 160/91 H 97 Body Mass Index 38.3 Const: General: comfortable and no acute distress GI: Palpation (GI): Soft to palpation Extrem: Other: left foot open wound clean, no pus, edema improving slowly, no cellulitis Progress Note: A&P Assessment and plan (1) Diabetic ulcer of foot associated with diabetes mellitus due to underlying condition, with fat layer exposed: Status: Acute Assessment and Plan: S/P I and D debridement. Dressings changed - fresh packing applied. Continue daily wound care - dry dressings, wrap foot with Kerlix foot elevation abx tx ok to ffup in office ok to ct home from surgical standpoint Fall Risk Details Current Medications: Current Medications Generic Name Dose Route Start Last Admin Trade Name Freq PRN Reason Stop Dose Admin Heparin Sodium (Porcine) 5,000 unit 04/28/20 13:00 05/01/20 05:45 Heparin Sodium,Porcine 5,000 Unit/Ml Vial SUBCUT 5,000 unit Q8H SUPRIYA Administration Levofloxacin 750 mg in 150 mls @ 100 mls/hr 04/28/20 17:00 04/30/20 18:28 Levaquin IV Infused Q24H SUPRIYA Infusion Daptomycin 500 mg/ Sodium 60 mls @ 100 mls/hr 04/30/20 13:00 04/30/20 14:08 Chloride IV Infused Q24H SUPRIYA Infusion Insulin Glargine 15 unit 05/01/20 09:00 05/01/20 07:58 Insulin Glargine,Hum.Rec.Anlog 100 Unit/Ml 10 Ml Vial SUBCUT 15 unit DAILY SUPRIYA Administration Insulin Human Lispro 0 unit 04/28/20 16:30 05/01/20 07:56 Insulin Lispro 100 Unit/Ml 3 Ml Vial SUBCUT 2 unit QIDACHS SUPRIYA Administration Protocol Morphine Sulfate 2 mg 04/28/20 14:01 04/30/20 11:34 Morphine Sulfate 2 Mg/Ml Cartridge IVPUSH 2 mg Q3H PRN Administration Pain, Severe (Pain Scale 7-10) Oxycodone HCl 5 mg 04/28/20 14:01 05/01/20 08:02 Oxycodone Hcl Immed Release 5 Mg Tablet PO 5 mg Q4H PRN Administration Pain, Moderate (Pain Scale 4-6 Pharmacy Consult 1 each 04/27/20 14:29 Consult Rx Perform Med Rec MISCELLANE ONCE PRN Consult order Sodium Chloride 3 ml 04/28/20 00:00 05/01/20 08:00 0.9 % Sodium Chloride Flush 3 Ml Syringe IVFLUSH 3 ml QSHIFT SUPRIYA Administration Time Spent With Patient Time: Total time spent is greater than 50% in coordination of care (as documented) at patient's floor/unit and/or counseling patient: Time with patient: less than 15 minutes
[2020-05-01 10:51] LABS: Basophils Percent Auto 0.2 % (0-2); Eosinophils Absolute Auto 0.1 X10*3/uL (0.0-0.4); Eosinophils Percent Auto 0.6 % (0-4); Hematocrit 30.5 % (42-52); Hemoglobin 9.7 g/dl (14.0-18.0); Imm Gran Abs Auto 0.07 X10*3/uL (0.00-0.03); Imm Gran Pct Auto 0.6 % (0.0-0.4); Lymphocytes Percent Auto 7.7 % (20-40); MANUAL DIFF FLAG SCAN; Mean Corpuscular HGB Conc 31.8 g/dl (31.0-36.0); Mean Corpuscular Hemoglobin 26.9 pg (27.0-33.0); Mean Corpuscular Volume 84.5 fL (80-98); Monocytes Absolute Auto 1.8 X10*3/uL (0.1-1.2); Monocytes Percent Auto 14.7 % (2-11); Neutrophils Absolute Auto 9.5 X10*3/uL (2.0-8.3); Neutrophils Percent Auto 76.2 % (45-73); Platelet Count 341 X10*3/uL (160-400); Red Blood Count 3.61 X10*6/uL (4.60-5.80); Red Cell Distribution Width 12.5 % (11.0-16.0); SCAN SMEAR FLAG 1; White Blood Count 12.5 X10*3/uL (4.8-10.8)
[2020-05-01 11:18] LABS: Anion Gap 12 (12-20); Blood Urea Nitrogen 17 mg/dL (9-16); Carbon Dioxide 31 mmol/L (22-29); Chloride 97 mmol/L (96-108); Creatinine Clr Calc Pharmacy 109.5; Estimated Glomerular Filt Rate > 60; Glucose Random 285 mg/dL (60-115); Sodium 136 mmol/L (135-145)
[2020-05-01 11:34] LABS: Calcium 7.7 mg/dL (8.4-10.2)
[2020-05-01 11:47] VITALS: BP 155/83; PULSE 92; RESP 19; TEMP 36.7; O2SAT 95
[2020-05-01 11:56] LABS: Glucose, Whole Blood 298 mg/dL (60-115)
[2020-05-01 11:57] LABS: SLIDE REVIEW VERIFIED
[2020-05-01] MEDS: DAPTOmycin 500 MG in 0.9 % Sodium Chloride 50 ML 100 MG IV (12:22)
--- NOTE | 2020-05-01 13:44 | MHC.CM.PN ---
nurse child care attendant note electrnic medical record reviewed along with case discussed with staff nurse , [facility] and surgical pa . patient will be requiring home iv abx/via a pic line for daptomycin 500mg qd for 40 dses this requests /referral was sent to [facility] , i also spoke with fritz from [place] , and gave her the fax number for the [facility] prior authorization unit for this medication fax [phone]) she will have them run the script and check for prior aiuthorization and if there is a patient co pay cost . patient will need a pcp, when asked he reported that his pcp is dr valadez, [facility] and they informed me that he had not been there since april 2017, case management hospice patient care secretary was able t secure next new patient visist with this office and for 05/07/20 3pm with michael pederson is willing to sighn off orders for the vna until he is seen by his ppc dr guerra will follow up with his labs discharge plan [facility] for iv daptomycin and all related supplies pending ins prio authorization vna -currently seeking vna whom can get out there for intial daily visists pcp dr cuba appt scheduled for michael rosa for at 3pm dr hernández surgeon follow up per discharge instructions- he will follow up on wounds dr guerra id, physician follow up with her and she will review all labs transportation patient to self arrange patient is awaiting pic line placement and confirmed imaging report to be sent to the vna and home infusion company.
--- NOTE | 2020-05-01 15:11 | HO.PM.IMPN ---
Subjective Subjective Date of Service: 05/01/20 Interval History: patient seen and examined at bedside patient reported pain in his foot Constitutional Constitutional: Reports no additional constitutional complaints Cardiovascular Cardiovascular: Denies chest pain Physical Exam Vital Signs: Vital Signs: Vital Signs Temp Pulse Resp BP Pulse Ox 05/01/20 11:47 98.0 F 92 19 155/83 H 95 05/01/20 07:36 98.0 F 93 20 170/96 H 98 05/01/20 02:51 98.4 F 101 H 18 157/91 H 97 04/30/20 22:59 98.9 F 90 18 155/91 H 95 04/30/20 19:51 99.4 F 96 18 152/90 H 97 04/30/20 15:35 99.8 F 95 18 157/86 H 95 Body Mass Index 38.3 Const: General: cooperative, healthy appearing and comfortable Orientation/consciousness: patient oriented x3 HENMT: Head: Yes normal to inspection Eyes: General: appearance normal, both eyes and all related structures Neck: Neck: Yes normal visual inspection Chest: Chest palpation & inspection: normal inspection of the chest Resp: Effort & Inspection: normal respiratory effort Auscultation: clear to auscultation bilaterally Cardio: Jugular venous distension: no JVD Rhythm: regular rhythm Heart sounds: S1 normal heart sound present and S2 normal heart sound present GI: Inspection: Yes normal to inspection Skin: Nails: other (left foot wound in plantar aspect of approximately 5 cm in diameter, clean ) Neuro: General: patient oriented x3 Psych: Appearance: grossly normal Objective Data Current Medications Generic Name Dose Route Start Last Admin Trade Name Freq PRN Reason Stop Dose Admin Heparin Sodium (Porcine) 5,000 unit 04/28/20 13:00 05/01/20 12:22 Heparin Sodium,Porcine 5,000 Unit/Ml Vial SUBCUT 5,000 unit Q8H SUPRIYA Administration Levofloxacin 750 mg in 150 mls @ 100 mls/hr 04/28/20 17:00 04/30/20 18:28 Levaquin IV Infused Q24H SUPRIYA Infusion Daptomycin 500 mg/ Sodium 60 mls @ 100 mls/hr 04/30/20 13:00 05/01/20 12:58 Chloride IV Infused Q24H SUPRIYA Infusion Insulin Glargine 15 unit 05/01/20 09:00 05/01/20 07:58 Insulin Glargine,Hum.Rec.Anlog 100 Unit/Ml 10 Ml Vial SUBCUT 15 unit DAILY SUPRIYA Administration Insulin Human Lispro 0 unit 04/28/20 16:30 05/01/20 12:21 Insulin Lispro 100 Unit/Ml 3 Ml Vial SUBCUT 6 unit QIDACHS [facility] Administration Protocol Morphine Sulfate 2 mg 04/28/20 14:01 04/30/20 11:34 Morphine Sulfate 2 Mg/Ml Cartridge IVPUSH 2 mg Q3H PRN Administration Pain, Severe (Pain Scale 7-10) Oxycodone HCl 5 mg 04/28/20 14:01 05/01/20 12:32 Oxycodone Hcl Immed Release 5 Mg Tablet PO 5 mg Q4H PRN Administration Pain, Moderate (Pain Scale 4-6 Pharmacy Consult 1 each 04/27/20 14:29 Consult Rx Perform Med Rec MISCELLANE ONCE PRN Consult order Sodium Chloride 3 ml 04/28/20 00:00 05/01/20 08:00 0.9 % Sodium Chloride Flush 3 Ml Syringe IVFLUSH 3 ml QSHIFT [facility] Administration Labs CBC & Chem 7: 05/01/20 10:09 05/01/20 10:09 Microbiology Microbiology Results: Microbiology 04/28/20 12:53 Foot Left Gram Stain - Final 04/28/20 12:53 Foot Left Routine Culture - Final Enterococcus faecalis Strep agalactiae (Grp B) Staphylococcus aureus 04/27/20 16:38 Blood - Venous Blood Culture - Preliminary No growth after 48 hours. 04/27/20 16:38 Blood - Venous Blood Culture - Preliminary No growth after 48 hours. Assessment and Plan (1) Diabetic ulcer of foot associated with diabetes mellitus due to underlying condition, with fat layer exposed: Status: Acute (2) Obesity: Status: Acute (3) Smoker: Status: Acute Assessment and Plan: left diabetic foot infection with cellulitis status post I and D on 04/28 continue Vanco and Levaquin Vanco level low, Vanco dose was adjusted monitor Vanco trough blood culture no growth for 48 hours Wound culture growing multiple organisms id recommended 6 weeks of daptomycin and Levaquin Will get PICC line dressing per surgery Diabetes mellitus patient reported he was not taking his medication continue Lantus continue sliding scale insulin monitor blood glucose DVT prophylaxis heparin subcu
[2020-05-01 15:19] VITALS: BP 155/84; PULSE 90; RESP 18; TEMP 36.9; O2SAT 98
[2020-05-01 16:56] LABS: Glucose, Whole Blood 217 mg/dL (60-115)
--- NOTE | 2020-05-01 17:03 | MHC.CM.PN ---
PATIENT REFUSES TO REMAIN UNTIL TOMORROW. [facility] AWARE OF THIS.
--- NOTE | 2020-05-01 23:58 | PC.NURSE ---
PATIENT LEFT AMA BECAUSE HE REFUSED TO WAIT FOR PICC PLACEMENT THE NEXT DAY. ALERT AND ORIENTED,AWARE OF RISKS OF LEAVING.IV REMOVED,MD AWARE AND AT BEDSIDE TO ENCOURAGE PATIENT TO STAY.AMA SIGNED.NURSING AGER TENDER AWARE.
--- NOTE | 2020-05-12 15:18 | PM.DS ---
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, with fat layer exposed: Status: Acute (2) Obesity: Status: Acute (3) Smoker: Status: Acute Problem details: Needs to quit smoking DS: Summary Hospital Course Hospital Course: date of service 05/01/2020 49-year-old male admitted with left foot cellulitis and diabetic foot infection , patient was started on broad-spectrum IV antibiotic, cultures were sent, MRI of the foot shows soft tissue swelling and early phlegmonous change, surgery was consulted patient underwent I&D, cultures from wound grew mixed organism Enterococcus, strep agalactiae and Staph aureus, id recommended 6 weeks of daptomycin and Levaquin, blood cultures were negative, case management was involved, case management was arranging visiting nurse and IV antibiotic, patient refused to stay, explained to patient risk of getting worsening of infection including , patient understands the risk but still refused to stay, refused PICC line and left against medical advice Time Spent with Patient Time attestation: Total time spent providing and/or coordinating discharge services: Physical Exam Vital Signs: Vital Signs: Body Mass Index 38.3 DS: Data Data Completed and Pending Completed studies during hospitalization [Text1]: Procedures Excision of Left Foot Subcutaneous Tissue and Fascia, Open Approach (04/27/20) Discharge Plan Discharge Patient Disposition: Left Against Medical Advice Referrals: Omega Mahoney PA-C [Physician Returned Goods Repairer] - 1 Week (05/07/2020 3:00pm Please call and reschedule if you can't keep this appointment.) Guido Keane MD [Physician] - 1 Week Discharge Medications: New (DME) blood sugar diagnostic Strip See Rx Instructions .ROUTE .MEDSUPPLY Qty: 100 RF: 0 (DME) blood-glucose meter Kit See Rx Instructions .ROUTE .MEDSUPPLY Qty: 1 RF: 0 Lantus U-100 Insulin 100 unit/mL Solution 15 unit subcut DAILY Qty: 30 RF: 1 insulin lispro [Humalog U-100 Insulin] 100 unit/mL solution 1 sliding scale dose subcut USEASDIRECTD Qty: 10 RF: 1 levofloxacin 500 mg tablet 500 mg PO DAILY 40 Days Qty: 40 RF: 0 No Action (DME) insulin syr/ndl U100 half galen 0.3 mL 31 gauge x 5/16 syringe See Rx Instructions .ROUTE .MEDSUPPLY Qty: 100 RF: 0 vancomycin in 0.9 % sodium chl 1.5 gram/250 mL solution 1.5 g IV Q12H 42 Days Qty: 84 RF: 0 Lantus U-100 Insulin 100 unit/mL Solution 15 unit subcut DAILY Qty: 1 RF: 0 amlodipine 5 mg Tablet 5 mg PO DAILY Qty: 30 RF: 0 oxycodone 5 mg Tablet 5 mg PO Q6H PRN (Reason: Pain, Severe (Pain Scale 7-10)) Qty: 14 RF: 0 nicotine [Nicoderm CQ] 21 mg/24 hr patch 24 hour 1 patch transdermal Q24H Qty: 28 RF: 0 Discharge Orders: Discharge Order (Routine); Ordered 05/12/20 Ordered By: Desean Stewart Discharge Date/Time: 05/01/20 17:19 Visit Report Forms: Patient Portal Discharge page Care Plan Goals: see discharge instruction Health Concerns: see discharge instruction Plan of Treatment: see discharge instruction
== END 2020-05-01 17:19 | disposition left against medical advice (07) | DRG 380 ==
LOC: HO.ED 19:14 → HO.S3 21:36
PROVIDERS: Emergency Medicine; Surgery; Admitting Provider Internal Medicine; Emergency Provider Emergency Medicine; Visit Provider Internal Medicine
PROC: 0JBR0ZZ Excision of Left Foot Subcutaneous Tissue and Fascia, Open Approach (ICD-10-PCS; principal; 2020-04-28 15:50)
DX: E11.621 Type 2 diabetes mellitus with foot ulcer (principal); L97.522 Non-pressure chronic ulcer of other part of left foot with fat layer exposed; F17.210 Nicotine dependence, cigarettes, uncomplicated; Z20.828 Contact with and (suspected) exposure to other viral communicable diseases; L03.116 Cellulitis of left lower limb; Z91.14 Patient's other noncompliance with medication regimen; E66.9 Obesity, unspecified; Z68.38 Body mass index [BMI] 38.0-38.9, adult; Z88.0 Allergy status to penicillin; Z79.4 Long term (current) use of insulin; Z79.899 Other long term (current) drug therapy
CPT/HCPCS: 36415; 80048; 80076; 80202; 82550; 82947; 83036; 83605; 83735; 85025; 85610; 85730; 87040; 87071; 87077; 87147; 87186; 87205; 87635; 96365; 96375; 99283; 99285; J0690; J0878; J1956; J2250; J2270; J2405; J3010; J3370

== ENCOUNTER 2020-05-05 14:11 | Inpatient (IN) | payer OTHER, SELFPAY ==
[2020-05-05 15:27] VITALS: BP 164/94; PULSE 87; RESP 16; TEMP 37; O2SAT 98; BMI 37.5
--- NOTE | 2020-05-05 15:57 | CT_ITS ---
EXAMINATION: CT FOOT WITH CONTRAST, LEFT CLINICAL INFORMATION: Worsening abscess of the dorsum and plantar side of the foot. COMPARISON: MR left foot 04/22/2020. Plain film left foot 04/02/2020. TECHNIQUE: Axial images obtained through the left foot. Coronal and sagittal reformatted images are performed at the CT scanner. FINDINGS: There is a focus of ulceration of the skin at the plantar side of the foot extending along the [id number] aspect of the foot around the level of the instep. There is subcutaneous edema around this ulceration. The ulceration extends approximately 1 cm in depth with obliteration of the fat plane at the superficial surface of the intrinsic muscles of the foot at the plantar side of the foot. There is extensive subcutaneous air tracking from this ulceration through the interspace between the 1st and 2nd toe into the dorsum of the foot. There is small collections of air also at the plantar surface of the great toe but most of the areas at the dorsum of the foot. There is edema throughout the forefoot. No focal drainable fluid collection, however, evident. There is loss of the cortex and irregularity of the medial side of the head of the 2nd metatarsal consistent with osteomyelitis. Image [address]/CT foot LT w con IMPRESSION: 1. There is a large skin ulceration at the plantar side of the foot. There is edema associated with the ulceration. There is tracking of air from this ulceration through the plantar surface of the foot to the dorsum of the foot through the interspace between the 1st and 2nd toe. 2. Bone destruction at the medial side of the head of the 2nd metatarsal consistent with osteomyelitis.
--- NOTE | 2020-05-05 16:02 | ED.GENADULT ---
HPI - General Adult General Chief complaint: Extremity Injury, Lower Stated complaint: WOUND CHECK Time Seen by Provider: 05/05/20 15:38 Source: patient Mode of arrival: ambulatory Limitations: no limitations History of Present Illness HPI narrative: patient comes to the emergency room complaining of a worsening abscess in his left foot. Patient was admitted from May 28 through for a left foot abscess. Patient underwent surgery for an incision and drainage and the Raz of a plantar abscess of the left foot. per previous notes, patient was supposed to get a PICC line, and get antibiotics Levaquin and daptomycin for 6 weeks, but patient left against medical advice. Patient states he went to see his wound clinic physician today, he was asked to come to the emergency room for further evaluation treatment and admission since the appearance of his foot is worsening. Patient states his foot is slightly more swollen, draining pus from the plantar aspect. patient states that yesterday he noticed that he had a blister on the dorsum of the left foot, became fairly big, patient took 1 of his insulin needles and lanced it himself and drained fluid Related Data Home Medications Medication Instructions Recorded Confirmed doxycycline hyclate 100 mg PO BID 04/27/20 04/27/20 meloxicam 7.5 mg PO DAILY 04/27/20 04/27/20 Previous Rx's Medication Instructions Recorded blood sugar diagnostic #100 ea 05/01/20 blood-glucose meter #1 ea 05/01/20 daptomycin [Cubicin RF] 500 mg IV Q24H #40 vial 05/01/20 insulin syr/ndl U100 half galen #100 ea 05/01/20 Allergies Allergy/AdvReac Type Severity Reaction Status Date / Time Penicillins [PENICILLINS] Allergy Mild Rash Verified 04/28/20 10:57 Review of Systems Review of Systems: Constitutional : No Weight loss, No Fever, No Chills, No Night Sweats, No Fatigue, No Malaise ENT/Mouth : No Hearing loss, No Ear Pain, No Nasal Congestion, No Sinus Pain, No Hoarseness, No sore throat, No Rhinorrhea, No Swallowing Difficulty Eyes: No Eye Pain, No Swelling, No Redness, No Foreign Body, No Discharge, No Vision Changes Cardiovascular : No Chest Pain, No SOB, No Dyspnea on Exertion, No Orthopnea, No Edema, No Palpitations Respiratory : No Cough, No Sputum, No Wheezing, No Smoke Exposure, No Dyspnea Gastrointestinal : No Nausea, No Vomiting, No Diarrhea, No Constipation, No abdominal Pain, No Hematochezia, No Melena Genitourinary : no irregular bleeding, No Dysuria, No Urinary Frequency, No Hematuria, No Urinary Incontinence, No Urgency, No Flank Pain, No Urinary Flow Changes, No Hesitancy Musculoskeletal : No joint pain, No Myalgias, No Joint Swelling Skin : status post I&D plantar aspect, new blister in the dorsal aspect Neuro : No Weakness, No Numbness, No Paresthesias, No Loss of Consciousness, No Dizziness, No Headache Psych : No Anxiety/Panic, No Depression, No SI/HI/AH/VH, No Social Issues, Heme/Lymph: No Bruising, No Bleeding,No Lymphadenopathy Endocrine : No Polyuria, No Polydipsia, No Temperature Intolerance [facility] Past Medical History Medical History Asthma Diabetes Neuropathy Umbilical hernia Surgical History H/O hernia repair Social History Social History Household Members: Family Housing: House Alcohol intake: never Smoking Status: Current every day smoker Smoked in Last 30 Days: No Use of substances other than those prescribed or required for medical reasons: No Advance Directives: No Advance Directives Information Provided: No service: No Physical Exam Vital Signs: Vital Signs: Vital Signs Temp Pulse Resp BP Pulse Ox 05/05/20 15:27 98.6 F 87 16 164/94 H 98 Body Mass Index 37.5 Appearance: Alert. Oriented X3. No acute distress. Eyes: Pupils equal, round and reactive to light. ENT: Pharynx normal. Neck: Normal inspection. Neck supple. No lymph nodes noted. No crepitus CVS: Normal heart rate and rhythm. Pulses normal. Normal S1 and S2 Respiratory: No respiratory distress. Breath sounds normal. No Wheezing. No rales Abdomen: Soft and nontender. No rigidity. No distention. good BS x4 Skin: left foot has a large I&D surgical site, draining yellow fluid, dorsum of the foot has an area of a patchy fluctuant tissue Extremities: No lower extremity edema. No lower extremity edema. No Lacerations. No Rash Neuro: Oriented X 3. No motor deficit. No sensory deficit. Moving all extermities. No slurred speech. Course Course Course Narrative: Prior to discharge, patient was on Levaquin and daptomycin, patient was restarted on this to antibiotics in the emergency room. Patient is to be admitted. Patient agrees with plan. Patient will likely need a PICC line. At this time, sepsis is not suspected. Sign-out given to Dr. Aquino Discharge Plan Discharge Clinical Impression: Diabetic ulcer of foot associated with diabetes mellitus due to underlying condition, with fat layer exposed Patient Disposition: Admitted As Inpatient Prescriptions: No Action doxycycline hyclate 100 mg capsule 100 mg PO BID RF: 0 meloxicam 7.5 mg tablet 7.5 mg PO DAILY RF: 0 daptomycin [Cubicin RF] 500 mg recon soln 500 mg IV Q24H Qty: 40 RF: 0 (DME) blood sugar diagnostic Strip See Rx Instructions .ROUTE .MEDSUPPLY Qty: 100 RF: 0 (DME) blood-glucose meter Kit See Rx Instructions .ROUTE .MEDSUPPLY Qty: 1 RF: 0 (DME) insulin syr/ndl U100 half galen 0.3 mL 31 gauge x 5/16 syringe See Rx Instructions .ROUTE .MEDSUPPLY Qty: 100 RF: 0
[2020-05-05 17:19] LABS: MANUAL DIFF FLAG NO
[2020-05-05 17:21] LABS: Basophils Percent Auto 0.5 % (0-2); Eosinophils Absolute Auto 0.3 X10*3/uL (0.0-0.4); Eosinophils Percent Auto 3.6 % (0-4); Hematocrit 36.8 % (42-52); Hemoglobin 11.2 g/dl (14.0-18.0); Imm Gran Abs Auto 0.06 X10*3/uL (0.00-0.03); Imm Gran Pct Auto 0.7 % (0.0-0.4); Lymphocytes Absolute Auto 1.4 X10*3/uL (1.2-4.9); Lymphocytes Percent Auto 16.2 % (20-40); Mean Corpuscular HGB Conc 30.4 g/dl (31.0-36.0); Mean Corpuscular Hemoglobin 26.2 pg (27.0-33.0); Mean Platelet Volume 10.7 fL (9.4-12.4); Monocytes Absolute Auto 0.8 X10*3/uL (0.1-1.2); Monocytes Percent Auto 9.1 % (2-11); Neutrophils Absolute Auto 6.1 X10*3/uL (2.0-8.3); Neutrophils Percent Auto 69.9 % (45-73); Platelet Count 484 X10*3/uL (160-400); Red Blood Count 4.28 X10*6/uL (4.60-5.80); Red Cell Distribution Width 12.6 % (11.0-16.0); White Blood Count 8.7 X10*3/uL (4.8-10.8)
[2020-05-05 17:43] LABS: Lactic Acid 1.3 mmol/L (0.5-2.0)
[2020-05-05] MEDS: iohexoL 350 MG/ML 100 ML INFUS..BTL 85 ML IV (17:48)
[2020-05-05] MEDS: DAPTOmycin 500 MG in 0.9 % Sodium Chloride 50 ML 100 MG IV (17:50)
[2020-05-05] MEDS: 0.9 % Sodium Chloride 1,000 ML 999 ML IVCONT ×2 (17:50→20:20)
[2020-05-05 17:59] LABS: Anion Gap 15 (12-20); Blood Urea Nitrogen 15 mg/dL (9-16); Calcium 8.3 mg/dL (8.4-10.2); Carbon Dioxide 30 mmol/L (22-29); Chloride 97 mmol/L (96-108); Estimated Glomerular Filt Rate > 60; Glucose Random 395 mg/dL (60-115); Potassium 5.1 mmol/l (3.3-5.1); Sodium 137 mmol/L (135-145)
[2020-05-05 18:00] VITALS: BP 186/106; PULSE 88; RESP 16; O2SAT 98
[2020-05-05] MEDS: levoFLOXacin/D5W 500 MG/100 ML PIGGYBACK 100 MG IV (18:40)
[2020-05-05] MEDS: Insulin Lispro 100 UNIT/ML 3 ML VIAL 10 UNIT SUBCUT (18:44)
[2020-05-05] MEDS: metroNIDAZOLE/NS 500 MG/100 ML PIGGYBACK 100 MG IV (20:20)
[2020-05-05 20:25] VITALS: BP 174/85; PULSE 85; O2SAT 97
--- NOTE | 2020-05-05 20:25 | PC.NURSE ---
pt awake and alert, pt requesting pain for his foot.
[2020-05-05] MEDS: oxyCODONE HCl Immed Release 5 MG TABLET PO (20:53)
[2020-05-05 21:03] VITALS: BP 148/97; PULSE 84; RESP 18; TEMP 37.4; O2SAT 99
--- NOTE | 2020-05-05 21:47 | PM.IMHP ---
History of Present Illness Date of Service: 05/05/20 Chief Complaint: diabetic foot wound this is a 49-year-old male with past medical history of diabetes, and asthma who presents to the hospital with complaints of left foot pain and leakage. Patient reports that he went to the wound clinic today and he was asked to come to the hospital because his wound is getting worse. of note patient was admitted to the hospital on 04/27 for the same exact foot wound infection and was treated with vancomycin and Levaquin at that time. The plan was to place a PICC line and discharge patient on daptomycin and Levaquin but patient left AMA on the . Patient reports that he was discharged with doxycycline at that time and his was taking it every day but went to the wound clinic today and was asked to come to the hospital as his wound looked worse. On his previous admission on the patient also underwent I&D by surgery. He reports that his wounds improve shortly after leaving the hospital but have now gotten worse in regards to pain and swelling. he reports that he also noted gas like collection under his skin, he popped it and clear liquid came out. He otherwise denies any fever or chills, No nausea or vomiting, no abdominal pain, no diarrhea constipation, no urinary symptoms and no other lower extremity abnormality. On arrival to the ED is hemodynamically stable labs are significant for a hemoglobin of 11.2, no leukocytosis, otherwise unremarkable CT of the foot shows large skin ulceration at the plantar side of the foot, there is edema associated with the ulceration. There is checking of air from this ulceration through the plantar surface of the foot to the dorsum of the foot through the interspace between the 1st and 2nd toe patient will be admitted for further management past medical history: Diabetes and asthma, diabetic neuropathy past surgical history: Repaired umbilical hernia, broken clavicle, status post amputation of the left metatarsals family history: Significant for psychosis, diabetes, hypertension in mother Social history: Smokes 1 pack per day, denies any alcohol or illicit drugs Review of Systems Review of Systems: Yes all other systems are reviewed and are negative [facility] Medical History (Updated 05/05/20 @ 23:27 by Tashi Echeverria MD) Asthma Diabetes Neuropathy Umbilical hernia Surgical History H/O hernia repair Social History Household Members: Significant Other Housing: Apartment Do you presently have visiting nurse or other home services: No Alcohol intake: never Smoking Status: Current every day smoker Tobacco Type: Cigarette Smoked in Last 30 Days: Yes Patient Interested in Nicotine Replacement: No Use of substances other than those prescribed or required for medical reasons: No Have you been hit, kicked, punched, or otherwise hurt by someone within the past year? If so, by whom?: No Do you feel safe in your current relationship?: Yes Is there a partner from a previous relationship who is making you feel unsafe now?: No Are you made to feel afraid or neglected: No Advance Directives: No Advance Directives Information Provided: No Do you have thoughts of harming others: None Recently lost weight without trying: No service: No Meds Allergies Allergy/AdvReac Type Severity Reaction Status Date / Time Penicillins [PENICILLINS] Allergy Mild Rash Verified 04/28/20 10:57 Home Medications Medication Instructions Recorded Confirmed Type doxycycline hyclate 100 mg PO BID 04/27/20 05/05/20 History Physical Exam Vital Signs and Narrative: Vital Signs: Last Vital Signs Temp 99.4 F 05/05/20 21:03 Pulse 84 05/05/20 21:03 Resp 18 05/05/20 21:03 BP 148/97 H 05/05/20 21:03 Pulse Ox 99 05/05/20 21:03 Body Mass Index 37.5 Const: General: cooperative and no acute distress Orientation/consciousness: patient oriented x3 Eyes: General: appearance normal, both eyes and all related structures Pupils: Equal, round and reactive pupils present Resp: Effort & Inspection: normal respiratory effort and able to speak in complete sentences Auscultation: clear to auscultation bilaterally Cardio: Rate: regular rate Rhythm: regular rhythm GI: Palpation (GI): Soft to palpation Auscultation: normal bowel sounds Skin: General skin exam: no rashes or lesions noted Neuro: General: patient oriented x3 Cranial nerves: Yes Equal, round and reactive pupils present Cognition (Neuro): normal cognition Extrem: Other: laceration at the plantar surface of the left foot with serosanguineous fluid, malodorous, there is also drainage of the distal metatarsals of the left foot Results Labs Labs: Laboratory Tests 05/05/20 05/05/20 05/05/20 17:09 17:09 17:09 WBC 8.7 RBC 4.28 L Hgb 11.2 L Hct 36.8 L D MCV 86.0 MCH 26.2 L MCHC 30.4 L RDW 12.6 Plt Count 484 H D MPV 10.7 Immature Gran % (Auto) 0.7 H Neut % (Auto) 69.9 Lymph % (Auto) 16.2 L [place] % (Auto) 9.1 Eos % (Auto) 3.6 Baso % (Auto) 0.5 Lymph # (Auto) 1.4 [place] # (Auto) 0.8 Eos # (Auto) 0.3 Baso # (Auto) 0.0 Abs Immat Gran (auto) 0.06 H Absolute Neuts (auto) 6.1 Absolute Nucleated RBC 0.000 Nucleated RBC % (auto) 0.0 Sodium 137 Potassium 5.1 D Chloride 97 Carbon Dioxide 30 H Anion Gap 15 BUN 15 Creatinine 1.03 Estim Creat Clear Calc 102.0 Estimated GFR > 60 Random Glucose 395 H* Lactic Acid 1.3 Calcium 8.[address]: Radiologist's impression: IMPRESSION: 1. There is a large skin ulceration at the plantar side of the foot. There is edema associated with the ulceration. There is tracking of air from this ulceration through the plantar surface of the foot to the dorsum of the foot through the interspace between the 1st and 2nd toe. 2. Bone destruction at the medial side of the head of the 2nd metatarsal consistent with osteomyelitis. Assessment and Plan (1) Osteomyelitis of ankle or foot, acute: Qualifiers: Laterality: left Qualified Code(s): M86.172 - Other acute osteomyelitis, left ankle and foot Status: Acute (2) Diabetic ulcer of foot associated with diabetes mellitus due to underlying condition, with fat layer exposed: Qualifiers: Diabetic foot ulcer location: unspecified part of foot Laterality: unspecified laterality Qualified Code(s): E08.621 - Diabetes mellitus due to underlying condition with foot ulcer; L97.502 - Non-pressure chronic ulcer of other part of unspecified foot with fat layer exposed Status: Acute (3) Abscess: Status: Acute (4) Asthma: Status: Acute (5) Diabetes: Status: Acute this is a 49-year-old male with past medical history of diabetes who was recently in the hospital on the for the treatment of diabetic foot wound and cellulitis, who left AMA on the , returns today, sent by the wound clinic for worsening of his wound/ulcer # Diabetic foot wound/abscess/concerning for osteomyelitis - Pt underwent I&D by surgery on the 04/29 of the abscess in the left foot. at that time Pt was supposed to be discharged on levoquin and deptomycin, but pt left AMA on the . - MRI of the foot at that time, did not show clear evidence of osteomyelitis, ID was consulted, pt's wound grew multiorganisms including Staph aureus, strep agalctiae, enterococcus faecalis - Returns today with the ulceration producing malodourous discharge as well as the amputation wound erythema and swelling as well as tenderness Plan: - WIll resume vancomycin as well as levoquin - Blood cultures drawn in ED will follow - ESR, CRP - ID consulted - General surgery # s/p I&D of abscess of plantar aspect of left foot - Now appears infected with CT concerning for presence of gas - Abx as above - Surgical consult # DM - Start LDSSI - Diabetic diet # Asthma - Stable - PRN bentilator DVT ppx: Lovenox
[2020-05-05 22:27] LABS: SARS COV2 PCR INHOUSE NEGATIVE (Negative)
[2020-05-05 22:39] VITALS: BP 176/94; PULSE 78; RESP 20; TEMP 37.3; O2SAT 95
--- NOTE | 2020-05-05 22:43 | PC.NURSE ---
called to give report, no answer on IMC.
--- NOTE | 2020-05-05 23:14 | PC.NURSE ---
SECOND ATTEMPT AT GIVING REPORT, CITY AUDITOR ANSWERED PHONE. TRANSFERRED TO NURSE, NO ANSWER.
--- NOTE | 2020-05-05 23:35 | PC.NURSE ---
REPORT GIVEN TO [employer] SUPERVISOR PACO.
[2020-05-05 23:58] VITALS: BP 175/97; PULSE 84; RESP 18; TEMP 36.7; O2SAT 97
[2020-05-06] VITALS (8 sets, daily range): BP systolic 137–180; BP diastolic 72–99; PULSE 68–85; RESP 16–20; TEMP 36.2–36.9; O2SAT 93–97; BMI 39.7
[2020-05-06 00:41] LABS: C Reactive Protein 8.69 mg/dL (< or = 0.50)
[2020-05-06 01:01] LABS: Erythrocyte Sedimentation Rate 98 MM/HR (0-15)
[2020-05-06] MEDS: Enoxaparin Sodium 40 MG/0.4 ML SYRINGE SUBCUT ×2 (01:04→23:40)
[2020-05-06] MEDS: 0.9 % Sodium Chloride Flush 3 ML SYRINGE IVFLUSH ×3 (01:06→17:16)
[2020-05-06] MEDS: oxyCODONE HCl Immed Release 5 MG TABLET PO ×4 (01:06→23:47)
[2020-05-06 06:46] LABS: Hemoglobin 10.1 g/dl (14.0-18.0); Imm Gran Abs Auto 0.08 X10*3/uL (0.00-0.03); Imm Gran Pct Auto 0.9 % (0.0-0.4); MANUAL DIFF FLAG SCAN; PLT CLUMP 1; Red Cell Distribution Width 12.6 % (11.0-16.0); SCAN SMEAR FLAG 1
[2020-05-06 06:47] LABS: Basophils Percent Auto 0.4 % (0-2); Eosinophils Absolute Auto 0.3 X10*3/uL (0.0-0.4); Hematocrit 32.7 % (42-52); Lymphocytes Absolute Auto 1.8 X10*3/uL (1.2-4.9); Lymphocytes Percent Auto 19.7 % (20-40); Mean Corpuscular HGB Conc 30.9 g/dl (31.0-36.0); Mean Corpuscular Hemoglobin 26.4 pg (27.0-33.0); Mean Corpuscular Volume 85.6 fL (80-98); Mean Platelet Volume 12.3 fL (9.4-12.4); Monocytes Percent Auto 10.7 % (2-11); Neutrophils Percent Auto 65.3 % (45-73); Platelet Count 271 X10*3/uL (160-400); Red Blood Count 3.82 X10*6/uL (4.60-5.80); White Blood Count 9.2 X10*3/uL (4.8-10.8)
[2020-05-06 06:57] LABS: Anion Gap 14 (12-20); Blood Urea Nitrogen 15 mg/dL (9-16); Calcium 7.6 mg/dL (8.4-10.2); Carbon Dioxide 27 mmol/L (22-29); Chloride 101 mmol/L (96-108); Estimated Glomerular Filt Rate > 60; Glucose Random 295 mg/dL (60-115); Potassium 4.5 mmol/l (3.3-5.1); Sodium 137 mmol/L (135-145)
[2020-05-06 07:53] LABS: SLIDE REVIEW VERIFIED
[2020-05-06 07:53] LABS: Glucose, Whole Blood 280 mg/dL (60-115)
--- NOTE | 2020-05-06 09:21 | P.PNIM_ITS ---
Subjective Subjective Date of Service: 05/06/20 Interval History: in follow up for for diabetic foot ulcer, osteomylitis Review of Systems No fever foot pain Physical Exam Vital Signs: Vital Signs: Vital Signs Temp Pulse Resp BP Pulse Ox 05/06/20 07:27 98.5 F 80 20 155/80 H 94 05/06/20 03:20 98.0 F 81 18 137/72 93 05/06/20 00:00 178/95 H 05/05/20 23:58 98.1 F 84 18 175/97 H 97 05/05/20 22:39 99.1 F 78 20 176/94 H 95 05/05/20 21:03 99.4 F 84 18 148/97 H 99 05/05/20 20:25 85 174/85 H 97 05/05/20 18:00 88 16 186/106 H 98 05/05/20 15:27 98.6 F 87 16 164/94 H 98 Body Mass Index 39.7 Const: General: cooperative and no acute distress Orientation/consciousness: patient oriented x3 Eyes: General: appearance normal, both eyes and all related structures Pupils: Equal, round and reactive pupils present Resp: Effort & Inspection: normal respiratory effort and able to speak in complete sentences Auscultation: clear to auscultation bilaterally Cardio: Rate: regular rate Rhythm: regular rhythm GI: Palpation (GI): Soft to palpation Auscultation: normal bowel sounds Skin: General skin exam: no rashes or lesions noted Neuro: General: patient oriented x3 Cranial nerves: Yes Equal, round and reactive pupils present Cognition (Neuro): normal cognition Extrem: Other: laceration at the plantar surface of the left foot with serosanguineous fluid, malodorous, there is also drainage of the distal metata rsals of the left foot--Dressing in place Objective Data Current Medications Generic Name Dose Route Start Last Admin Trade Name Freq PRN Reason Stop Dose Admin Acetaminophen 650 mg 05/05/20 23:54 Acetaminophen 325 Mg Tablet PO Q6H PRN Pain, Mild (Pain Scale 1-3) Docusate Sodium 100 mg 05/05/20 23:54 Docusate Sodium 100 Mg Capsule PO DAILY PRN Constipation Enoxaparin Sodium 40 mg 05/05/20 23:54 05/06/20 01:04 Enoxaparin Sodium 40 Mg/0.4 Ml Syringe SUBCUT 40 mg Q24H SUPRIYA Administration Vancomycin HCl 1,000 mg/ 535 mls @ 267.5 mls/hr 05/05/20 23:54 05/06/20 01:12 Vancomycin HCl 750 mg/ Sodium IV Not Given Chloride Q12H SUPRIYA Levofloxacin 750 mg in 150 mls @ 100 mls/hr 05/05/20 23:54 05/06/20 01:11 Levaquin IV Not Given Q24H [facility] Ondansetron HCl 4 mg 05/05/20 23:54 Ondansetron Hcl 4 Mg/2 Ml Vial IVPUSH Q8H PRN Nausea and Vomiting Oxycodone HCl 5 mg 05/06/20 00:37 05/06/20 08:56 Oxycodone Hcl Immed Release 5 Mg Tablet PO 5 mg Q6H PRN Administration Pain, Severe (Pain Scale 7-10) Pharmacy Consult 1 each 05/05/20 19:28 Consult Rx Perform Med Rec MISCELLANE ONCE PRN Consult order Sodium Chloride 3 ml 05/06/20 00:00 05/06/20 01:06 0.9 % Sodium Chloride Flush 3 Ml Syringe IVFLUSH 3 ml QSHIFT [facility] Administration Labs CBC & Chem 7: 05/06/20 05:24 05/06/20 05:24 Assessment and Plan (1) Osteomyelitis of ankle or foot, acute: Status: Acute (2) Diabetic ulcer of foot associated with diabetes mellitus due to underlying condition, with fat layer exposed: Status: Acute (3) Abscess: Status: Acute (4) Asthma: Status: Acute (5) Diabetes: Status: Acute Assessment and Plan: 49-year-old male with past medical history of diabetes who was recently in the hospital on the for the treatment of diabetic foot wound and cellulitis. He left AMA on the , returns today, sent by the wound clinic for worsening of his wound/ulcer # Diabetic foot wound and osteomyelitis--recently left without treatment - Pt underwent I&D by surgery on the 04/29 of the abscess in the left foot. at that time Pt was supposed to be discharged on levoquin and deptomycin, but pt left AMA on the . - MRI of the foot at that time, did not show clear evidence of osteomyelitis, ID was consulted, pt's wound grew multiorganisms including Staph aureus, strep agalctiae, enterococcus faecalis - Returns with the ulceration producing malodourous discharge as well as the am putation wound erythema and swelling as well as tenderness, CT shows evidence of osteomylitis Plan: - Continue vancomycin as well as levoquin - Blood cultures drawn in ED will follow - ID consulted - General surgery # DM - Start LDSSI - Diabetic diet # Asthma - Stable - PRN bentilator DVT ppx: Lovenox
--- NOTE | 2020-05-06 09:27 | PM.CNGS ---
History of Present Illness Consult details Narrative: 49-year-old male, diabetic, admitted to the hospital last night for worsening diabetic foot infection. He is known to me. I had done an I and D of a plantar abscess last April 28, 2020 with debridement in the operating room. I had been doing his wound care postop. He had signed out against medical advice on May 01. He was to post to be on prolonged IV antibiotic therapy. He went to the wound care clinic yesterday and was sent to the emergency room because of worsening infection of the foot. He continues to have pain on the foot. He describes drainage from the dorsal aspect as well as the large I&D site. He describes will a of the skin of the dorsum as well. He denies any fever or chills. Review of Systems Constitutional: Constitutional: Denies chills and Denies fever(s) Cardiovascular: Cardiovascular: Denies chest pain, Denies dyspnea and Denies dyspnea on exertion Respiratory: Respiratory: Denies cough, Denies dyspnea and Denies dyspnea on exertion Gastrointestinal: Gastrointestinal: Denies hematochezia and Denies change in bowel habits Genitourinary: Genitourinary: Reports hematuria and Reports difficulty urinating Musculoskeletal: Musculoskeletal: Denies back pain and Denies limited range of motion Neurologic: Denies focal weakness and Denies convulsions Psychiatric: Psychiatric: Denies depression and Denies mood swings PMFSH Past Medical History Medical History Asthma Diabetes Neuropathy Umbilical hernia Surgical History Surgical History H/O hernia repair Social History Social History Household Members: Significant Other Housing: Apartment Do you presently have visiting nurse or other home services: No Alcohol intake: never Smoking Status: Current every day smoker Tobacco Type: Cigarette Smoked in Last 30 Days: Yes Patient Interested in Nicotine Replacement: No Use of substances other than those prescribed or required for medical reasons: No Have you been hit, kicked, punched, or otherwise hurt by someone within the past year? If so, by whom?: No Do you feel safe in your current relationship?: Yes Is there a partner from a previous relationship who is making you feel unsafe now?: No Are you made to feel afraid or neglected: No Advance Directives: No Advance Directives Information Provided: No Do you have thoughts of harming others: None Recently lost weight without trying: No service: No Meds Allergies Allergy/AdvReac Type Severity Reaction Status Date / Time Penicillins [PENICILLINS] Allergy Mild Rash Verified 04/28/20 10:57 Home Medications Medication Instructions Recorded Confirmed Type doxycycline hyclate 100 mg PO BID 04/27/20 05/05/20 History Physical Exam Vital Signs: Vital Signs: Vital Signs Temp Pulse Resp BP Pulse Ox 05/06/20 07:27 98.5 F 80 20 155/80 H 94 05/06/20 03:20 98.0 F 81 18 137/72 93 05/06/20 00:00 178/95 H 05/05/20 23:58 98.1 F 84 18 175/97 H 97 05/05/20 22:39 99.1 F 78 20 176/94 H 95 05/05/20 21:03 99.4 F 84 18 148/97 H 99 05/05/20 20:25 85 174/85 H 97 05/05/20 18:00 88 16 186/106 H 98 05/05/20 15:27 98.6 F 87 16 164/94 H 98 Body Mass Index 39.7 Const: Other: Appears obese General: comfortable and no acute distress Orientation/consciousness: patient oriented x3 Neck: Neck: Yes no lymphadenopathy Resp: Auscultation: clear to auscultation bilaterally Cardio: Rhythm: regular rhythm GI: Palpation (GI): Soft to palpation, nontender and no guarding Neuro: General: patient oriented x3 Extrem: Other: Left foot with large, open I and D site on the plantar aspect, blistering of the dorsal, edema actually better than last week, dorsum and plantar aspect drawing in machine tender helper to touch, some significant drainage still noted from the plantar I&D site, no streaking cellulitis Results Labs Result diagrams: 05/06/20 05:24 05/06/20 05:24 Labs: Abnormal lab results 05/05/20 05/05/20 05/06/20 Range/Units 17:09 17:09 00:09 RBC 4.28 L (4.60-5.80) X10*6/uL Hgb 11.2 L (14.0-18.0) g/dl Hct 36.8 L D (42-52) % MCH 26.2 L (27.0-33.0) pg MCHC 30.4 L (31.0-36.0) g/dl Plt Count 484 H D (160-400) X10*3/uL Immature Gran % (Auto) 0.7 H (0.0-0.4) % Lymph % (Auto) 16.2 L (20-40) % Abs Immat Gran (auto) 0.06 H (0.00-0.03) X10*3/uL ESR 98 H (0-15) MM/HR Carbon Dioxide 30 H (22-29) mmol/L POC Glucose (60-115) mg/dL Random Glucose 395 H* (60-115) mg/dL Calcium 8.3 L (8.4-10.2) mg/dL C-Reactive Protein (< or = 0.50) mg/dL 05/06/20 05/06/20 05/06/20 Range/Units 00:09 05:24 05:24 RBC 3.82 L (4.60-5.80) X10*6/uL Hgb 10.1 L (14.0-18.0) g/dl Hct 32.7 L (42-52) % MCH 26.4 L (27.0-33.0) pg MCHC 30.9 L (31.0-36.0) g/dl Plt Count (160-400) X10*3/uL Immature Gran % (Auto) 0.9 H (0.0-0.4) % Lymph % (Auto) 19.7 L (20-40) % Abs Immat Gran (auto) 0.08 H (0.00-0.03) X10*3/uL ESR (0-15) MM/HR Carbon Dioxide (22-29) mmol/L POC Glucose (60-115) mg/dL Random Glucose 295 H (60-115) mg/dL Calcium 7.6 L (8.4-10.2) mg/dL C-Reactive Protein 8.69 H (< or = 0.50) mg/dL 05/06/20 Range/Units 07:49 RBC (4.60-5.80) X10*6/uL Hgb (14.0-18.0) g/dl Hct (42-52) % MCH (27.0-33.0) pg MCHC (31.0-36.0) g/dl Plt Count (160-400) X10*3/uL Immature Gran % (Auto) (0.0-0.4) % Lymph % (Auto) (20-40) % Abs Immat Gran (auto) (0.00-0.03) X10*3/uL ESR (0-15) MM/HR Carbon Dioxide (22-29) mmol/L POC Glucose 280 H (60-115) mg/dL Random Glucose (60-115) mg/dL Calcium (8.4-10.2) mg/dL C-Reactive Protein (< or = 0.50) mg/dL Short CBC 05/05/20 05/06/20 Range/Units 17:09 05:24 WBC 8.7 9.2 (4.8-10.8) X10*3/uL Hgb 11.2 L 10.1 L (14.0-18.0) g/dl Hct 36.8 L D 32.7 L (42-52) % Plt Count 484 H D 271 D (160-400) X10*3/uL BMP 05/05/20 05/06/20 17:09 05:24 Sodium 137 137 Potassium 5.1 D 4.5 Chloride 97 101 Carbon Dioxide 30 H 27 BUN 15 15 Creatinine 1.03 0.91 Calcium 8.3 L 7.6 L All other labs normal. Assessment and Plan (1) Diabetic ulcer of foot associated with diabetes mellitus due to underlying condition, with fat layer exposed: Qualifiers: Diabetic foot ulcer location: unspecified part of foot Laterality: unspecified laterality Qualified Code(s): E08.621 - Diabetes mellitus due to underlying condition with foot ulcer; L97.502 - Non-pressure chronic ulcer of other part of unspecified foot with fat layer exposed Status: Acute 49-year-old male with a diabetic foot infection of the left foot. I had done an I and D and debridement last week. The edema is actually much improved compared to last week but there was note of significant tenderness, drainage, as well as bullous formation of the skin on the dorsum. His CAT scan shows suggestion of persistent infection with osteomyelitis of the 2nd metatarsal at the head. I have changes dressings. I have instructed him to strictly elevate the left foot on 2 pillows. He appears to be poorly compliant at home and had signed out against medical advise last week. He is to have prolonged IV antibiotic treatment and will get a PICC line today. I will continue to follow him closely while in the hospital. I will continue to do regular wound checks.
--- NOTE | 2020-05-06 09:53 | MHC.CM.PN ---
met with pt who had no services prior to hospitiliaztion ,pt s dc plan uncedrtain at this time ?iv antibiotics referrall to [facility]
[2020-05-06 11:10] LABS: Glucose, Whole Blood 291 mg/dL (60-115)
[2020-05-06 11:59] LABS: Glucose, Whole Blood 265 mg/dL (60-115)
--- NOTE | 2020-05-06 11:59 | PC.NURSE ---
This patient was educated regarding diabetic diet, insulin coverage and the importance of following this diet. This patient is refusing to follow this diet at this time.
[2020-05-06] MEDS: Acetaminophen 325 MG TABLET 650 MG PO (13:08)
--- NOTE | 2020-05-06 14:40 | PC.NURSE ---
Dr Tijerina aware of blood sugars and elevated BP
[2020-05-06 16:02] LABS: Glucose, Whole Blood 290 mg/dL (60-115)
--- NOTE | 2020-05-06 16:37 | W.PM.IDCN ---
History of Present Illness Data of Consult Service Date: 05/06/20 Requesting physician: Wyatt Tijerina Primary Care Provider: Gabe Chisholm MD HPI Reason for consult: foot infection He has had one month swelling and open ulcer lateral left foot He has CT shows abscess middle second metatarsal He has enterococcus, Group B strep and staph aureus He has no fever or chills Review of Systems Review of Systems: Yes all other systems are reviewed and are negative Musculoskeletal: Musculoskeletal: Reports radiating pain into limb Neurologic: Denies focal weakness and Denies convulsions [facility] Past Medical History Medical History Asthma Diabetes Neuropathy Umbilical hernia Surgical History Surgical History H/O hernia repair Social History Social History Household Members: Significant Other Housing: Apartment Alcohol intake: never Smoking Status: Current every day smoker Tobacco Type: Cigarette service: No Meds Allergies Allergy/AdvReac Type Severity Reaction Status Date / Time Penicillins [PENICILLINS] Allergy Mild Rash Verified 04/28/20 10:57 Physical Exam Vital Signs: Vital Signs: Vital Signs Temp Pulse Resp BP Pulse Ox 05/06/20 10:57 98.0 F 82 20 167/93 H 96 05/06/20 07:27 98.5 F 80 20 155/80 H 94 05/06/20 03:20 98.0 F 81 18 137/72 93 05/06/20 00:00 178/95 H 05/05/20 23:58 98.1 F 84 18 175/97 H 97 05/05/20 22:39 99.1 F 78 20 176/94 H 95 05/05/20 21:03 99.4 F 84 18 148/97 H 99 05/05/20 20:25 85 174/85 H 97 05/05/20 18:00 88 16 186/106 H 98 Body Mass Index 39.7 Const: General: cooperative HENMT: Head: Yes normal to inspection Mouth: Normal oral and palatal mucosa present Eyes: General: appearance normal, both eyes and all related structures Resp: Effort & Inspection: normal respiratory effort Cardio: Rate: regular rate Rhythm: regular rhythm GI: Inspection: Yes normal to inspection Extrem: Other: wrapped left foot ,bloody Assessment and Plan (1) Osteomyelitis of ankle or foot, acute: Qualifiers: Laterality: left Qualified Code(s): M86.172 - Other acute osteomyelitis, left ankle and foot Problem details: Multiple organisms Enterococcus,staph aureus and Group B strep Status: Acute Vancomycin for 6 weeks Monitor weekly levels trough and creatinine (2) Diabetes: Status: Acute Results Labs CBC & Chem 7: 05/06/20 05:24 05/08/20 06:08 Labs: Short CBC 05/05/20 05/06/20 Range/Units 17:09 05:24 WBC 8.7 9.2 (4.8-10.8) X10*3/uL Hgb 11.2 L 10.1 L (14.0-18.0) g/dl Hct 36.8 L D 32.7 L (42-52) % Plt Count 484 H D 271 D (160-400) X10*3/uL BMP 05/05/20 05/06/20 17:09 05:24 Sodium 137 137 Potassium 5.1 D 4.5 Chloride 97 101 Carbon Dioxide 30 H 27 BUN 15 15 Creatinine 1.03 0.91 Calcium 8.3 L 7.6 L
[2020-05-06] MEDS: amLODIPine Besylate 5 MG TABLET PO (17:15)
[2020-05-06 21:30] LABS: Glucose, Whole Blood 378 mg/dL (60-115)
[2020-05-06] MEDS: Insulin Lispro 100 UNIT/ML 3 ML VIAL SUBCUT (23:36)
[2020-05-07] VITALS (7 sets, daily range): BP systolic 149–174; BP diastolic 76–97; PULSE 80–90; RESP 18–20; TEMP 36.1–37.3; O2SAT 93–98
[2020-05-07] MEDS: levoFLOXacin/D5W 750 MG/150 ML PIGGYBACK 100 MG IV (01:39)
[2020-05-07] MEDS: 0.9 % Sodium Chloride Flush 3 ML SYRINGE IVFLUSH ×3 (01:43→15:30)
[2020-05-07] MEDS: oxyCODONE HCl Immed Release 5 MG TABLET PO ×3 (06:57→19:28)
--- NOTE | 2020-05-07 08:51 | PM.PNGS ---
Subjective Subjective Patient reports: no new complaints Interval history: No events overnight Some foot pain Physical Exam Vital Signs: Vital Signs: Vital Signs Temp Pulse Resp BP Pulse Ox 05/07/20 07:41 97 F 80 20 149/76 H 93 05/07/20 03:24 99.1 F 87 18 159/96 H 98 05/06/20 20:07 97.9 F 85 20 177/99 H 97 05/06/20 20:00 20 05/06/20 19:58 97.9 F 84 20 170/99 H 97 05/06/20 16:38 97.1 F 68 16 180/99 H 96 05/06/20 10:57 98.0 F 82 20 167/93 H 96 Body Mass Index 39.7 Const: General: comfortable and no acute distress GI: Palpation (GI): Soft to palpation and nontender Extrem: Other: Left foot - open I and D wound on the plantar aspect, some drainage, edema of the entire foot much better, skin breakdown on the dorsal aspect noted with some blistering, superficial skin bluntly debrided, no streaking cellulitis Progress Note: A&P Assessment and plan (1) Diabetic ulcer of foot associated with diabetes mellitus due to underlying condition, with fat layer exposed: Status: Acute Assessment and Plan: There is persistent drainage from the I&D site I have changed dressings and lightly packed the open wound with gauze Will need IV antibiotics -awaiting PICC line Good wound care/hygiene; wrap foot with Kerlix roll and keep this elevated Will continue to follow Fall Risk Details Current Medications: Current Medications Generic Name Dose Route Start Last Admin Trade Name Everardo PRN Reason Stop Dose Admin Acetaminophen 650 mg 05/05/20 23:54 05/06/20 13:08 Acetaminophen 325 Mg Tablet PO 650 mg Q6H PRN Administration Pain, Mild (Pain Scale 1-3) Amlodipine Besylate 5 mg 05/06/20 15:15 05/06/20 17:15 Amlodipine Besylate 5 Mg Tablet PO 5 mg DAILY SUPRIYA Administration Protocol Docusate Sodium 100 mg 05/05/20 23:54 Docusate Sodium 100 Mg Capsule PO DAILY PRN Constipation Enoxaparin Sodium 40 mg 05/05/20 23:54 05/06/20 23:40 Enoxaparin Sodium 40 Mg/0.4 Ml Syringe SUBCUT 40 mg Q24H SUPRIYA Administration Levofloxacin 750 mg in 150 mls @ 100 mls/hr 05/05/20 23:54 05/07/20 03:28 Levaquin IV Infused Q24H SUPR[facility]YA Infusion Vancomycin HCl 750 mg/ 275 mls @ 183.333 mls/hr 05/06/20 20:00 05/07/20 06:43 Vancomycin HCl 500 mg/ Sodium IV Infused Chloride Q8H SUPRIYA Infusion Insulin Human Lispro 0 unit 05/07/20 07:30 05/06/20 23:36 Insulin Lispro 100 Unit/Ml 3 Ml Vial SUBCUT 10 unit QIDACHS SUPRIYA Administration Protocol Ondansetron HCl 4 mg 05/05/20 23:54 Ondansetron Hcl 4 Mg/2 Ml Vial IVPUSH Q8H PRN Nausea and Vomiting Oxycodone HCl 5 mg 05/06/20 00:37 05/07/20 06:57 Oxycodone Hcl Immed Release 5 Mg Tablet PO 5 mg Q6H PRN Administration Pain, Severe (Pain Scale 7-10) Pharmacy Consult 1 each 05/05/20 19:28 Consult Rx Perform Med Rec MISCELLANE ONCE PRN Consult order Sodium Chloride 3 ml 05/06/20 00:00 05/07/20 01:43 0.9 % Sodium Chloride Flush 3 Ml Syringe IVFLUSH 3 ml QSHIFT [facility] Administration Time Spent With Patient Time: Total time spent is greater than 50% in coordination of care (as documented) at patient's floor/unit and/or counseling patient: Time with patient: less than 15 minutes
[2020-05-07 08:57] LABS: Glucose, Whole Blood 230 mg/dL (60-115)
[2020-05-07] MEDS: Insulin Lispro 100 UNIT/ML 3 ML VIAL SUBCUT ×4 (09:06→21:57)
[2020-05-07] MEDS: amLODIPine Besylate 5 MG TABLET PO (09:07)
--- NOTE | 2020-05-07 09:25 | HO.PM.IMPN ---
Subjective Subjective Date of Service: 05/07/20 Interval History: Seen in follow up for for diabetic foot ulcer, osteomylitis s/p I&D by Dr. Keane yesterday Review of Systems No fever foot pain Physical Exam Vital Signs: Vital Signs: Vital Signs Temp Pulse Resp BP Pulse Ox 05/07/20 09:07 80 149/76 H 05/07/20 07:41 97 F 80 20 149/76 H 93 05/07/20 03:24 99.1 F 87 18 159/96 H 98 05/06/20 20:07 97.9 F 85 20 177/99 H 97 05/06/20 20:00 20 05/06/20 19:58 97.9 F 84 20 170/99 H 97 05/06/20 16:38 97.1 F 68 16 180/99 H 96 05/06/20 10:57 98.0 F 82 20 167/93 H 96 Body Mass Index 39.7 Const: General: cooperative and no acute distress Orientation/consciousness: patient oriented x3 Eyes: General: appearance normal, both eyes and all related structures Pupils: Equal, round and reactive pupils present Resp: Effort & Inspection: normal respiratory effort and able to speak in complete sentences Auscultation: clear to auscultation bilaterally Cardio: Rate: regular rate Rhythm: regular rhythm GI: Palpation (GI): Soft to palpation Auscultation: normal bowel sounds Skin: General skin exam: no rashes or lesions noted Neuro: General: patient oriented x3 Cranial nerves: Yes Equal, round and reactive pupils present Cognition (Neuro): normal cognition Extrem: Other: laceration at the plantar surface of the left foot with serosanguineous fluid, malodorous, there is also drainage of the distal metatarsals of the left foot--Dressing in place Objective Data Current Medications Generic Name Dose Route Start Last Admin Trade Name Freq PRN Reason Stop Dose Admin Acetaminophen 650 mg 05/05/20 23:54 05/06/20 13:08 Acetaminophen 325 Mg Tablet PO 650 mg Q6H PRN Administration Pain, Mild (Pain Scale 1-3) Amlodipine Besylate 5 mg 05/06/20 15:15 05/07/20 09:07 Amlodipine Besylate 5 Mg Tablet PO 5 mg DAILY SUPRIYA Administration Protocol Docusate Sodium 100 mg 05/05/20 23:54 Docusate Sodium 100 Mg Capsule PO DAILY PRN Constipation Enoxaparin Sodium 40 mg 05/05/20 23:54 05/06/20 23:40 Enoxaparin Sodium 40 Mg/0.4 Ml Syringe SUBCUT 40 mg Q24H SUPRIYA Administration Levofloxacin 750 mg in 150 mls @ 100 mls/hr 05/05/20 23:54 05/07/20 03:28 Levaquin IV Infused Q24H [facility] Infusion Vancomycin HCl 750 mg/ 275 mls @ 183.333 mls/hr 05/06/20 20:00 05/07/20 06:43 Vancomycin HCl 500 mg/ Sodium IV Infused Chloride Q8H SUPR[facility] Infusion Insulin Human Lispro 0 unit 05/07/20 07:30 05/07/20 09:06 Insulin Lispro 100 Unit/Ml 3 Ml Vial SUBCUT 4 unit QIDACHS [facility] Administration Protocol Ondansetron HCl 4 mg 05/05/20 23:54 Ondansetron Hcl 4 Mg/2 Ml Vial IVPUSH Q8H PRN Nausea and Vomiting Oxycodone HCl 5 mg 05/06/20 00:37 05/07/20 06:57 Oxycodone Hcl Immed Release 5 Mg Tablet PO 5 mg Q6H PRN Administration Pain, Severe (Pain Scale 7-10) Pharmacy Consult 1 each 05/05/20 19:28 Consult Rx Perform Med Rec MISCELLANE ONCE PRN Consult order Sodium Chloride 3 ml 05/06/20 00:00 05/07/20 09:07 0.9 % Sodium Chloride Flush 3 Ml Syringe IVFLUSH 3 ml QSHIFT [facility] Administration Labs CBC & Chem 7: 05/06/20 05:24 05/06/20 05:24 Microbiology Microbiology Results: Microbiology 05/05/20 17:42 Blood - Venous Blood Culture - Preliminary No growth after 24 hours. 05/05/20 17:09 Blood - Venous Blood Culture - Preliminary No growth after 24 hours. Assessment and Plan (1) Osteomyelitis of ankle or foot, acute: Problem details: Multiple organisms Enterococcus,staph aureus and Group B strep Status: Acute (2) Diabetic ulcer of foot associated with diabetes mellitus due to underlying condition, with fat layer exposed: Status: Acute (3) Abscess: Status: Acute (4) Asthma: Status: Acute (5) Diabetes: Status: Acute Assessment and Plan: 49-year-old male with past medical history of diabetes who was recently in the hospital on the for the treatment of diabetic foot wound and cellulitis. He left AMA on the , returns today, sent by the wound clinic for worsening of his wound/ulcer # Diabetic foot wound and osteomyelitis--recently left without treatment - Pt underwent I&D by surgery on the 04/29 of the abscess in the left foot. at that time Pt was supposed to be discharged on levoquin and deptomycin, but pt left AMA on the . - MRI of the foot at that time, did not show clear evidence of osteomyelitis, ID was consulted, pt's wound grew multiorganisms including Staph aureus, strep agalctiae, enterococcus faecalis - Returns with the ulceration producing malodourous discharge as well as the amputation wound erythema and swelling as well as tenderness, CT shows evidence of osteomylitis Plan: - Continue Vancomycin - Blood cultures drawn in ED will follow - ID recommend 6 weeks of IV Vanco, will arrange for PICC line - General surgery had perform I&D and recommend good wound care/hygiene; wrap foot with Kerlix roll and keep this elevated # DM - continue SSI -add Lantus - Diabetic diet # Asthma - Stable - PRN bentilator DVT ppx: Lovenox
[2020-05-07 12:13] LABS: Glucose, Whole Blood 255 mg/dL (60-115)
[2020-05-07] MEDS: Insulin Glargine,Hum.rec.anlog 100 UNIT/ML 10 ML VIAL 12 UNIT SUBCUT (13:14)
--- NOTE | 2020-05-07 15:36 | PC.NURSE ---
pATIENT REFUSED TELESITER
[2020-05-07 16:05] LABS: Glucose, Whole Blood 192 mg/dL (60-115)
[2020-05-07 19:41] LABS: Vancomycin Trough 13.4 mcg/mL (10.0-20.0)
[2020-05-07 21:07] LABS: Glucose, Whole Blood 232 mg/dL (60-115)
[2020-05-08] VITALS (8 sets, daily range): BP systolic 134–166; BP diastolic 69–96; PULSE 75–85; RESP 18–20; TEMP 36.1–37; O2SAT 95–99; BMI 38.9
[2020-05-08] MEDS: levoFLOXacin/D5W 750 MG/150 ML PIGGYBACK 100 MG IV (01:01)
[2020-05-08] MEDS: 0.9 % Sodium Chloride Flush 3 ML SYRINGE IVFLUSH ×3 (01:01→15:30)
[2020-05-08] MEDS: Enoxaparin Sodium 40 MG/0.4 ML SYRINGE SUBCUT (01:01)
[2020-05-08] MEDS: oxyCODONE HCl Immed Release 5 MG TABLET PO ×4 (01:45→20:38)
[2020-05-08 06:42] LABS: Anion Gap 12 (12-20); Blood Urea Nitrogen 17 mg/dL (9-16); Calcium 7.8 mg/dL (8.4-10.2); Carbon Dioxide 30 mmol/L (22-29); Chloride 100 mmol/L (96-108); Creatinine Clr Calc Pharmacy 105.2; Estimated Glomerular Filt Rate > 60; Glucose Random 219 mg/dL (60-115); Potassium 4.6 mmol/l (3.3-5.1); Sodium 137 mmol/L (135-145)
[2020-05-08] MEDS: Insulin Lispro 100 UNIT/ML 3 ML VIAL SUBCUT ×4 (07:49→22:04)
[2020-05-08] MEDS: Insulin Glargine,Hum.rec.anlog 100 UNIT/ML 10 ML VIAL 12 UNIT SUBCUT (07:49)
[2020-05-08] MEDS: amLODIPine Besylate 5 MG TABLET PO (07:53)
--- NOTE | 2020-05-08 08:53 | HO.PM.IMPN ---
Subjective Subjective Interval History: Seen in follow up for for diabetic foot ulcer, osteomylitis. No new complaint, He is threatening to leave AMA if he does get a PICC line sewn in go home. Physical Exam Vital Signs: Vital Signs: Vital Signs Temp Pulse Resp BP Pulse Ox 05/08/20 08:00 97.4 F 75 20 148/70 H 97 05/08/20 07:53 77 153/81 H 05/08/20 05:13 97.0 F 77 18 153/81 H 96 05/08/20 03:39 97.2 F 79 18 157/80 H 95 05/07/20 23:23 97.6 F 82 18 165/88 H 05/07/20 19:45 96.9 F 86 18 150/81 H 97 05/07/20 15:22 98.3 F 88 18 174/97 H 98 05/07/20 12:00 97.2 F 90 20 164/92 H 97 05/07/20 09:07 80 149/76 H Body Mass Index 38.9 Const: General: cooperative and no acute distress Orientation/consciousness: patient oriented x3 Eyes: General: appearance normal, both eyes and all related structures Pupils: Equal, round and reactive pupils present Resp: Effort & Inspection: normal respiratory effort and able to speak in complete sentences Auscultation: clear to auscultation bilaterally Cardio: Rate: regular rate Rhythm: regular rhythm GI: Palpation (GI): Soft to palpation Auscultation: normal bowel sounds Skin: General skin exam: no rashes or lesions noted Neuro: General: patient oriented x3 Cranial nerves: Yes Equal, round and reactive pupils present Cognition (Neuro): normal cognition Extrem: Other: laceration at the plantar surface of the left foot with serosanguineous fluid, malodorous, there is also drainage of the distal metatarsals of the left foot--Dressing in place Objective Data Current Medications Generic Name Dose Route Start Last Admin Trade Name Freq PRN Reason Stop Dose Admin Acetaminophen 650 mg 05/05/20 23:54 05/06/20 13:08 Acetaminophen 325 Mg Tablet PO 650 mg Q6H PRN Administration Pain, Mild (Pain Scale 1-3) Amlodipine Besylate 5 mg 05/06/20 15:15 05/08/20 07:53 Amlodipine Besylate 5 Mg Tablet PO 5 mg DAILY SUPRIYA Administration Protocol Docusate Sodium 100 mg 05/05/20 23:54 Docusate Sodium 100 Mg Capsule PO DAILY PRN Constipation Enoxaparin Sodium 40 mg 05/05/20 23:54 05/08/20 01:01 Enoxaparin Sodium 40 Mg/0.4 Ml Syringe SUBCUT 40 mg Q24H [facility] Administration Levofloxacin 750 mg in 150 mls @ 100 mls/hr 05/05/20 23:54 05/08/20 02:31 Levaquin IV Infused Q24H SUPRIYA Infusion Vancomycin HCl 750 mg/ 275 mls @ 183.333 mls/hr 05/07/20 23:00 05/08/20 07:50 Vancomycin HCl 500 mg/ Sodium IV 183.33 mls/hr Chloride Q8H [facility] Administration Insulin Glargine 12 unit 05/07/20 12:45 05/08/20 07:49 Insulin Glargine,Hum.Rec.Anlog 100 Unit/Ml 10 Ml Vial SUBCUT 12 unit DAILY [facility] Administration Insulin Human Lispro 0 unit 05/07/20 07:30 05/08/20 07:49 Insulin Lispro 100 Unit/Ml 3 Ml Vial SUBCUT 2 unit QIDACHS [facility] Administration Protocol Ondansetron HCl 4 mg 05/05/20 23:54 Ondansetron Hcl 4 Mg/2 Ml Vial IVPUSH Q8H PRN Nausea and Vomiting Oxycodone HCl 5 mg 05/06/20 00:37 05/08/20 07:50 Oxycodone Hcl Immed Release 5 Mg Tablet PO 5 mg Q6H PRN Administration Pain, Severe (Pain Scale 7-10) Pharmacy Consult 1 each 05/05/20 19:28 Consult Rx Perform Med Rec MISCELLANE ONCE PRN Consult order Sodium Chloride 3 ml 05/06/20 00:00 05/08/20 07:53 0.9 % Sodium Chloride Flush 3 Ml Syringe IVFLUSH 3 ml QSHIFT [facility] Administration Labs CBC & Chem 7: 05/06/20 05:24 05/08/20 06:08 Microbiology Microbiology Results: Microbiology 05/05/20 17:42 Blood - Venous Blood Culture - Preliminary No growth after 48 hours. 05/05/20 17:09 Blood - Venous Blood Culture - Preliminary No growth after 48 hours. Assessment and Plan (1) Osteomyelitis of ankle or foot, acute: Problem details: Multiple organisms Enterococcus,staph aureus and Group B strep Status: Acute (2) Diabetic ulcer of foot associated with diabetes mellitus due to underlying condition, with fat layer exposed: Status: Acute (3) Abscess: Status: Acute (4) Asthma: Status: Acute (5) Diabetes: Status: Acute Assessment and Plan: 49-year-old male with past medical history of diabetes who was recently in the hospital on the for the treatment of diabetic foot wound and cellulitis. He left AMA on the , returns today, sent by the wound clinic for worsening of his wound/ulcer # Diabetic foot wound and osteomyelitis--recently left without treatment - Pt underwent I&D by surgery on the 04/29 of the abscess in the left foot. at that time Pt was supposed to be discharged on levoquin and deptomycin, but pt left AMA on the . - MRI of the foot at that time, did not show clear evidence of osteomyelitis, ID was consulted, pt's wound grew multiorganisms including Staph aureus, strep agalctiae, enterococcus faecalis - Returns with the ulceration producing malodourous discharge as well as the amputation wound erythema and swelling as well as tenderness, CT shows evidence of osteomylitis Plan: - Continue Vancomycin - Blood cultures drawn in ED will follow - ID recommend 6 weeks of IV Vanco. PICC line today hopefully - General surgery had perform I&D and recommend good wound care/hygiene; wrap foot with Kerlix roll and keep this elevated # DM - continue SSI - Lantus added yesterday - Diabetic diet # Asthma - Stable - PRN bronchodilators DVT ppx: Lovenox
--- NOTE | 2020-05-08 10:38 | HO.PICC ---
PICC Line Insertion NPICC Diagnosis: OSTEOMYELITIS Indication: [facility] IV ANTIBIOTICS Pertinent Labs: REVIEWED Technique: Following informed consent including risks, benefits and alternatives and using sterile technique including cap and mask, sterile gown, glove and drape, the RIGHT arm was prepped and draped in the usual sterile fashion of full barrier technique with CHG. Following completion of [place] Protocol the skin and soft tissues were anesthetized with 1% Lidocaine plain. Using ultrasound guidance, RIGHT BASILIC vein access was obtained BY THIS RN ON SECOND ATTEMPT; x2 UNSUCCESSFUL ATTEMPTS BY PREVIOUS RN. Over an 0.018 wire through peel-away sheath, a 4 AZERBAIJANI SINGLE LUMEN PICC line was positioned. Catheter length is 47 CM internal length, 0 CM external length, for a total trimmed length of 47 cm. The procedure was performed in S272. Tip verification was performed by Alessia Berg with Steph 3CG. Tip located in SVC. Ultrasound was used to document vein patency and for needle entry. A formal ultrasound picture and cardiac rhythm strip was recorded. [facility] has released the line for use and it is currently dressed with a StatLock, Tegaderm, and CHG disc. Verification has been performed for blood return and line patency. Arm Circumference: 35 CM Equipment: [employer] POWER PICC SOLO Catheter Type: 4 AZERBAIJANI SINGLE LUMEN PICC Lot #: [id number]
[2020-05-08 11:19] LABS: Glucose, Whole Blood 187 mg/dL (60-115)
[2020-05-08 12:00] LABS: Glucose, Whole Blood 216 mg/dL (60-115)
--- NOTE | 2020-05-08 15:16 | MHC.CM.PN ---
[facility] in for Pt teaching. Pt demonstrated excellent return demo. 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 At this time a VNA has not been secured. CM will follow.
--- NOTE | 2020-05-08 16:13 | MHC.CM.PN ---
DP IV ABX tomorrow. Unable to find an accepting VNA at close of CM office.. [facility] has script flush orders too. [facility] will fax to the vna (once secured) for us.
[2020-05-08 16:31] LABS: Glucose, Whole Blood 246 mg/dL (60-115)
[2020-05-08 21:06] LABS: Glucose, Whole Blood 248 mg/dL (60-115)
[2020-05-09] MEDS: Enoxaparin Sodium 40 MG/0.4 ML SYRINGE SUBCUT ×2 (00:13→23:52)
[2020-05-09] MEDS: levoFLOXacin/D5W 750 MG/150 ML PIGGYBACK 100 MG IV ×2 (00:18→23:51)
[2020-05-09] MEDS: 0.9 % Sodium Chloride Flush 3 ML SYRINGE IVFLUSH ×3 (00:26→23:59)
[2020-05-09] MEDS: oxyCODONE HCl Immed Release 5 MG TABLET PO ×4 (02:41→22:10)
[2020-05-09 02:57] VITALS: BP 145/77; PULSE 79; RESP 16; TEMP 36.7; O2SAT 97
[2020-05-09 07:45] LABS: Glucose, Whole Blood 228 mg/dL (60-115)
[2020-05-09] MEDS: Insulin Lispro 100 UNIT/ML 3 ML VIAL SUBCUT ×4 (07:55→20:42)
[2020-05-09 08:00] VITALS: BP 148/93; PULSE 90; RESP 19; TEMP 36.4; O2SAT 98
--- NOTE | 2020-05-09 09:00 | PM.PNGS ---
Subjective Subjective Interval history: feels well wants to go home some pain on left foot PICC line placed yesterday Physical Exam Vital Signs: Vital Signs: Vital Signs Temp Pulse Resp BP Pulse Ox 05/09/20 08:00 97.6 F 90 19 148/93 H 98 05/09/20 02:57 98.1 F 79 16 145/77 H 97 05/08/20 23:37 98.6 F 80 18 138/74 96 05/08/20 19:22 98.5 F 85 18 166/69 H 99 05/08/20 15:41 97.3 F 84 18 161/89 H 98 05/08/20 11:23 97.2 F 84 20 134/96 H 97 Body Mass Index 38.9 Const: General: comfortable, no acute distress and alert GI: Palpation (GI): Soft to palpation and nontender Extrem: Other: left foot - open wound, from I and D, plantar aspect, freely draining, some fibrinous debris, excised with scissors; eschar on dorsal aspect about 2x4 cm Progress Note: A&P Assessment and plan (1) Diabetic ulcer of foot associated with diabetes mellitus due to underlying condition, with fat layer exposed: Status: Acute Assessment and Plan: open plantar wound debrided sharply with scissors to remove nonviable tissue I also excised he eschar - full thickness skin part of subcutaneous layer on plantar aspect using scissors I applied light packing on both open wounds he will need daily dressing changes - I explained to him wound care instructions IV abx I can see him in the office next week if he is discharged today Fall Risk Details Current Medications: Current Medications Generic Name Dose Route Start Last Admin Trade Name Everardo PRN Reason Stop Dose Admin Acetaminophen 650 mg 05/05/20 23:54 05/06/20 13:08 Acetaminophen 325 Mg Tablet PO 650 mg Q6H PRN Administration Pain, Mild (Pain Scale 1-3) Amlodipine Besylate 5 mg 05/06/20 15:15 05/08/20 07:53 Amlodipine Besylate 5 Mg Tablet PO 5 mg DAILY [facility] Administration Protocol Docusate Sodium 100 mg 05/05/20 23:54 Docusate Sodium 100 Mg Capsule PO DAILY PRN Constipation Enoxaparin Sodium 40 mg 05/05/20 23:54 05/09/20 00:13 Enoxaparin Sodium 40 Mg/0.4 Ml Syringe SUBCUT 40 mg Q24H [facility] Administration Levofloxacin 750 mg in 150 mls @ 100 mls/hr 05/05/20 23:54 05/09/20 02:04 Levaquin IV Infused Q24H [facility] Infusion Vancomycin HCl 1,500 mg/ 300 mls @ 200 mls/hr 05/08/20 18:00 05/09/20 07:12 Sodium Chloride IV 200 mls/hr Q12H [facility] Administration Insulin Glargine 12 unit 05/07/20 12:45 05/08/20 07:49 Insulin Glargine,Hum.Rec.Anlog 100 Unit/Ml 10 Ml Vial SUBCUT 12 unit DAILY [facility] Administration Insulin Human Lispro 0 unit 05/07/20 07:30 05/09/20 07:55 Insulin Lispro 100 Unit/Ml 3 Ml Vial SUBCUT 4 unit QIDACHS [facility] Administration Protocol Ondansetron HCl 4 mg 05/05/20 23:54 Ondansetron Hcl 4 Mg/2 Ml Vial IVPUSH Q8H PRN Nausea and Vomiting Oxycodone HCl 5 mg 05/06/20 00:37 05/09/20 02:41 Oxycodone Hcl Immed Release 5 Mg Tablet PO 5 mg Q6H PRN Administration Pain, Severe (Pain Scale 7-10) Pharmacy Consult 1 each 05/05/20 19:28 Consult Rx Perform Med Rec MISCELLANE ONCE PRN Consult order Sodium Chloride 3 ml 05/06/20 00:00 05/09/20 07:57 0.9 % Sodium Chloride Flush 3 Ml Syringe IVFLUSH Not Given QSHIFT [facility] Time Spent With Patient Time: Total time spent is greater than 50% in coordination of care (as documented) at patient's floor/unit and/or counseling patient: Time with patient: 15 - 24 minutes
[2020-05-09] MEDS: amLODIPine Besylate 5 MG TABLET PO (09:31)
[2020-05-09] MEDS: Insulin Glargine,Hum.rec.anlog 100 UNIT/ML 10 ML VIAL 12 UNIT SUBCUT (09:32)
--- NOTE | 2020-05-09 10:12 | PM.DS ---
DS: Providers Provider Date of admission: 05/05/20 20:57 Primary care physician: Gabe Chisholm MD Consults: 05/05/20 16:29 Consult to Infectious Diseases Routine Consulting Provider: Sol Kirkland Reason for consultation: PT ON DAPTO LEFT AMA Has provider been notified: Yes 05/05/20 23:54 Consult to General Surgery Routine Consulting Provider: Hetal Rao Reason for consultation: Osteo Has provider been notified: No Consult to Infectious Diseases Routine Consulting Provider: Sol Kirkland Reason for consultation: right foot osteo Has provider been notified: No DS: Diagnosis Discharge Diagnosis (1) Diabetic ulcer of foot associated with diabetes mellitus due to underlying condition, with fat layer exposed: Status: Acute DS: Summary Hospital Course Hospital Course: 49 year male with diabetes that is not well controlled and not compliance with medication and has diabetic foot ulcer of the left foot with open wound at the plant aspect and abscess and MRI had shown osteomylitis on 04/22. He was admitted from 04/27 and left AMA on 05/01 while he was advised for longtem antibiotics via PICC . He was readmitted essentially for the same thing on 05/05 and this time is agreable to treatment. The foot has been debrided by surgery. Wound culture shows Enteroccocus, Group B Strep and Staph Aurues. ID recommend Vancomycin for 6 week. Has a PICC line since 05/07. Plan is to go home with IV Vanco and VNS. I have started him on Norvasc 5 mg daily and Lisinopril 10 mg daily for uncontrolled HTN. He says he doesn't take insulin he's started on Lantus 15 units in addition to SSI--he has glucometter and other insulin supplies Time Spent with Patient Time attestation: Total time spent providing and/or coordinating discharge services: Physical Exam Vital Signs: Vital Signs: Vital Signs Temp Pulse Resp BP Pulse Ox 05/09/20 08:00 97.6 F 90 19 148/93 H 98 05/09/20 02:57 98.1 F 79 16 145/77 H 97 05/08/20 23:37 98.6 F 80 18 138/74 96 05/08/20 19:22 98.5 F 85 18 166/69 H 99 05/08/20 15:41 97.3 F 84 18 161/89 H 98 05/08/20 11:23 97.2 F 84 20 134/96 H 97 Body Mass Index 38.9 Const: Other: Appears obese General: cooperative, comfortable, no acute distress and alert Orientation/consciousness: patient oriented x3 Resp: Effort & Inspection: normal respiratory effort and able to speak in complete sentences Auscultation: clear to auscultation bilaterally Cardio: Rate: regular rate Rhythm: regular rhythm GI: Inspection: Yes normal to inspection Palpation (GI): Soft to palpation, nontender and no guarding Auscultation: normal bowel sounds Neuro: General: patient oriented x3 Extrem: Other: left foot - open wound, from I and D, plantar aspect, freely draining, some fibrinous debris, excised with scissors; eschar on dorsal aspect about 2x4 cm DS: Data Data Completed and Pending Completed studies during hospitalization [Text1]: Procedures Excision of Left Foot Subcutaneous Tissue and Fascia, Open Approach (04/27/20) Labs on day of discharge: Labs from last 24 hours 05/09/20 05/08/20 05/08/20 07:31 20:56 16:26 POC Glucose 228 H 248 H 246 H 05/08/20 05/08/20 11:20 07:20 POC Glucose 216 H 187 H Preliminary micro results at discharge 05/05/20 17:42 Blood Culture - Preliminary Blood - Venous No growth after 48 hours. 05/05/20 17:09 Blood Culture - Preliminary Blood - Venous No growth after 48 hours. Discharge Plan Discharge Patient Disposition: Home Health Service Referrals: [facility] [Other] [facility] [Other] Gabe Chisholm MD [Primary Care Provider] - 2 Weeks (05/22/20 11:00 AM Please call and reschedule if you can't keep this appointment.) Discharge Medications: New vancomycin in 0.9 % sodium chl 1.5 gram/250 mL solution 1.5 g IV Q12H 42 Days Qty: 84 RF: 0 amlodipine 5 mg Tablet 5 mg PO DAILY Qty: 30 RF: 0 oxycodone 5 mg Tablet 5 mg PO Q6H PRN (Reason: Pain, Severe (Pain Scale 7-10)) Qty: 14 RF: 0 Continued (DME) blood sugar diagnostic Strip See Rx Instructions .ROUTE .MEDSUPPLY Qty: 100 RF: 0 (DME) blood-glucose meter Kit See Rx Instructions .ROUTE .MEDSUPPLY Qty: 1 RF: 0 Discontinued doxycycline hyclate 100 mg capsule 100 mg PO BID RF: 0 No Action (DME) insulin syr/ndl U100 half galen 0.3 mL 31 gauge x 5/16 syringe See Rx Instructions .ROUTE .MEDSUPPLY Qty: 100 RF: 0 Lantus U-100 Insulin 100 unit/mL solution 15 unit subcut DAILY Qty: 10 RF: 1 Basaglar KwikPen U-100 Insulin 100 unit/mL (3 mL) insulin pen 20 unit subcut QPM 30 Days Qty: 6 RF: 0 nicotine [Nicoderm CQ] 21 mg/24 hr patch 24 hour 1 patch transdermal Q24H Qty: 28 RF: 0 Discharge Orders: Discharge Order (Routine); Ordered 05/10/20 Ordered By: Steve Bryan Diet: diabetic diet Activity on Discharge: As tolerated Discharge Date/Time: 05/10/20 19:05 Visit Report Forms: Patient Portal Discharge page Care Plan Goals: Resolution of infection in the foot and prevent amputation Health Concerns: Possible worsening of infected foot to the point of needing ampuation Plan of Treatment: Take Vancomycin as recommended, and follow up with your doctor in a week Follow diabetes instrucion including diet and take insulin as recommended
[2020-05-09 11:13] VITALS: BP 137/88; PULSE 86; TEMP 37
[2020-05-09] MEDS: lisinopriL 10 MG TABLET PO (11:14)
[2020-05-09 11:37] LABS: Glucose, Whole Blood 237 mg/dL (60-115)
--- NOTE | 2020-05-09 12:31 | MHC.CM.PN ---
CALL TO [facility] ([phone]) - NO STAFF ON UNTIL MONDAY CALL TO [facility] ([phone])- NO STAFF TO REVIEW ON [facility] LEFT MESSAGE THAT THEY ARE UNABLE TO ACCOMMODATE. CALL TO [facility] ([phone]) AWAITING CALL BACK FROM RN INSTRUMENT MAKER APPRENTICE
--- NOTE | 2020-05-09 13:35 | MHC.CM.PN ---
Addendum entered by Evelia Palomares 05/09/20 13:36: [facility] MADE AWARE. PATIENT SAYING HE IS GOING TO LEAVE AMA. MIKHAIL THEN MADE AWARE HIS PICC WILL BE REMOVED PATIENT NOT WANTING TO PARTICIPATE IN MEANINGFUL CONVERSATION ABOUT HIS CARE. CASE MANAGEMENT TO FOLLOW UP ONCE CALL BACK IS RECEIVED. Original Note: [facility] IS TRYING TO MAKE ARRANGEMENTS FOR PATIENT TO RECEIVE SERVICES STARTING TOMORROW. CASE MANAGEMENT AWAITING CALL BACK.
[2020-05-09 15:18] VITALS: BP 139/85; PULSE 88; RESP 20; TEMP 37.2; O2SAT 96
--- NOTE | 2020-05-09 15:48 | MHC.CM.PN ---
[facility] ATTEMPTED TO OFFER SERVICES; HOWEVER, THEY ARE UNABLE DUE TO LACK OF STAFF. 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 RN ALSO AWARE. [facility] NOTIFED IN [facility]
--- NOTE | 2020-05-09 16:22 | MHC.CM.PN ---
[facility] IS OFFERING START OF CARE, MONDAY ([phone]) PATIENT, , AND RN AWARE. PATIENT'S HAS CONTACT NUMBER FOR AGENCY.
--- NOTE | 2020-05-09 16:51 | P.PNIM_ITS ---
Subjective Subjective Interval History: Seen in follow up for for diabetic foot ulcer, osteomylitis. No new complaint, No isues. Awaiting acceptance by [facility] so can go home Review of Systems foot pain no fever Physical Exam Vital Signs: Vital Signs: Vital Signs Temp Pulse Resp BP Pulse Ox 05/09/20 15:18 99.0 F 88 20 139/85 96 05/09/20 11:13 98.6 F 86 137/88 05/09/20 08:00 97.6 F 90 19 148/93 H 98 05/09/20 02:57 98.1 F 79 16 145/77 H 97 05/08/20 23:37 98.6 F 80 18 138/74 96 05/08/20 19:22 98.5 F 85 18 166/69 H 99 Body Mass Index 38.9 Objective Data Current Medications Generic Name Dose Route Start Last Admin Trade Name Freq PRN Reason Stop Dose Admin Acetaminophen 650 mg 05/05/20 23:54 05/06/20 13:08 Acetaminophen 325 Mg Tablet PO 650 mg Q6H PRN Administration Pain, Mild (Pain Scale 1-3) Amlodipine Besylate 5 mg 05/06/20 15:15 05/09/20 09:31 Amlodipine Besylate 5 Mg Tablet PO 5 mg DAILY SUPRIYA Administration Protocol Docusate Sodium 100 mg 05/05/20 23:54 Docusate Sodium 100 Mg Capsule PO DAILY PRN Constipation Enoxaparin Sodium 40 mg 05/05/20 23:54 05/09/20 00:13 Enoxaparin Sodium 40 Mg/0.4 Ml Syringe SUBCUT 40 mg Q24H SUPRIYA Administration Levofloxacin 750 mg in 150 mls @ 100 mls/hr 05/05/20 23:54 05/09/20 02:04 Levaquin IV Infused Q24H [facility] Infusion Vancomycin HCl 1,500 mg/ 300 mls @ 200 mls/hr 05/08/20 18:00 05/09/20 09:34 Sodium Chloride IV Infused Q12H [facility] Infusion Insulin Glargine 12 unit 05/07/20 12:45 05/09/20 09:32 Insulin Glargine,Hum.Rec.Anlog 100 Unit/Ml 10 Ml Vial SUBCUT 12 unit DAILY SUPRIYA Administration Insulin Human Lispro 0 unit 05/07/20 07:30 05/09/20 11:41 Insulin Lispro 100 Unit/Ml 3 Ml Vial SUBCUT 4 unit QIDACHS [facility] Administration Protocol Ondansetron HCl 4 mg 05/05/20 23:54 Ondansetron Hcl 4 Mg/2 Ml Vial IVPUSH Q8H PRN Nausea and Vomiting Oxycodone HCl 5 mg 05/06/20 00:37 05/09/20 16:11 Oxycodone Hcl Immed Release 5 Mg Tablet PO 5 mg Q6H PRN Administration Pain, Severe (Pain Scale 7-10) Pharmacy Consult 1 each 05/05/20 19:28 Consult Rx Perform Med Rec MISCELLANE ONCE PRN Consult order Sodium Chloride 3 ml 05/06/20 00:00 05/09/20 16:12 0.9 % Sodium Chloride Flush 3 Ml Syringe IVFLUSH 3 ml QSHIFT [facility] Administration Labs CBC & Chem 7: 05/06/20 05:24 05/08/20 06:08 Microbiology Microbiology Results: Microbiology 05/05/20 17:42 Blood - Venous Blood Culture - Preliminary No growth after 48 hours. 05/05/20 17:09 Blood - Venous Blood Culture - Preliminary No growth after 48 hours. Assessment and Plan (1) Diabetic ulcer of foot associated with diabetes mellitus due to underlying condition, with fat layer exposed: Status: Acute Assessment and Plan: 49-year-old male with past medical history of diabetes who was recently in the hospital on the for the treatment of diabetic foot wound and cellulitis. He left AMA on the , returns today, sent by the wound clinic for worsening of his wound/ulcer # Diabetic foot wound and osteomyelitis--recently left without treatment - Pt underwent I&D by surgery on the 04/29 of the abscess in the left foot. at that time Pt was supposed to be discharged on levoquin and deptomycin, but pt left AMA on the . - MRI of the foot at that time, did not show clear evidence of osteomyelitis, ID was consulted, pt's wound grew multiorganisms including Staph aureus, strep aga lctiae, enterococcus faecalis - Returns with the ulceration producing malodourous discharge as well as the amputation wound erythema and swelling as well as tenderness, CT shows evidence of osteomylitis Plan: - Continue Vancomycin - Blood cultures drawn in ED will follow - ID recommend 6 weeks of IV Vanco. PICC in since 05/07 - General surgery had perform I&D and recommend good wound care/hygiene; wrap foot with Kerlix roll and keep this elevated # DM - continue SSI - Lantus added - Diabetic diet # Asthma - Stable - PRN bronchodilators' #HTN--added Norvasc 5, Lisinopril 10 Dispo: Possibly home tomorrow if accepted by [facility] DVT ppx: Lovenox
[2020-05-09 17:13] LABS: Glucose, Whole Blood 252 mg/dL (60-115)
[2020-05-09 20:00] VITALS: BP 151/89; PULSE 76; RESP 18; TEMP 36.7; O2SAT 97
[2020-05-09 20:55] LABS: Glucose, Whole Blood 186 mg/dL (60-115)
[2020-05-09 23:24] VITALS: BP 133/86; PULSE 80; RESP 16; TEMP 37.1; O2SAT 97
[2020-05-10 03:15] VITALS: BP 156/88; PULSE 78; RESP 20; TEMP 36.4; O2SAT 96
[2020-05-10] MEDS: oxyCODONE HCl Immed Release 5 MG TABLET PO ×3 (03:23→18:58)
[2020-05-10 05:56] LABS: Vancomycin Trough 13.8 mcg/mL (10.0-20.0)
--- NOTE | 2020-05-10 06:53 | PC.NURSE ---
pharmacy to bring up morning dose of vanco, unavailable to me in pyxis, next RN aware
[2020-05-10] MEDS: 0.9 % Sodium Chloride Flush 3 ML SYRINGE IVFLUSH (07:44)
[2020-05-10 08:00] VITALS: BP 122/90; PULSE 64; RESP 18; TEMP 36.3; O2SAT 94
[2020-05-10 08:24] LABS: Glucose, Whole Blood 213 mg/dL (60-115)
[2020-05-10] MEDS: Insulin Lispro 100 UNIT/ML 3 ML VIAL SUBCUT ×3 (08:49→17:23)
[2020-05-10] MEDS: Insulin Glargine,Hum.rec.anlog 100 UNIT/ML 10 ML VIAL 12 UNIT SUBCUT (08:49)
[2020-05-10] MEDS: amLODIPine Besylate 5 MG TABLET PO (08:50)
--- NOTE | 2020-05-10 09:35 | P.PNGS_ITS ---
Subjective Subjective Interval history: feels well says he is being discharged today some pain on left foot Physical Exam Vital Signs: Vital Signs: Vital Signs Temp Pulse Resp BP Pulse Ox 05/10/20 08:00 97.3 F 64 18 122/90 H 94 05/10/20 03:15 97.5 F 78 20 156/88 H 96 05/09/20 23:24 98.8 F 80 16 133/86 97 05/09/20 20:00 98.0 F 76 18 151/89 H 97 05/09/20 15:18 99.0 F 88 20 139/85 96 05/09/20 11:13 98.6 F 86 137/88 Body Mass Index 38.9 Const: General: comfortable and no acute distress GI: Palpation (GI): Soft to palpation and nontender Extrem: Other: left foot - open debridement wound dorsal aspect with thick fibrinous coating; plantar I and D site some drainage, less swelling, no cellulitis Progress Note: A&P Assessment and plan (1) Diabetic ulcer of foot associated with diabetes mellitus due to underlying condition, with fat layer exposed: Status: Acute Assessment and Plan: dorsal aspect debrided yesterday, wet to dry applied plantar wound with some drainage overall, edema much improved, no cellulitis I changed his dressings - light packing reapplied to bothe dorsal and plantar wounds I have instructed him on wound care no weight bearing to go home on IV abx with PICC will see in office later this week - pt instructed on ffup Fall Risk Details Current Medications: Current Medications Generic Name Dose Route Start Last Admin Trade Name Freq PRN Reason Stop Dose Admin Acetaminophen 650 mg 05/05/20 23:54 05/06/20 13:08 Acetaminophen 325 Mg Tablet PO 650 mg Q6H PRN Administration Pain, Mild (Pain Scale 1-3) Amlodipine Besylate 5 mg 05/06/20 15:15 05/10/20 08:50 Amlodipine Besylate 5 Mg Tablet PO 5 mg DAILY SUPRIYA Administration Protocol Docusate Sodium 100 mg 05/05/20 23:54 Docusate Sodium 100 Mg Capsule PO DAILY PRN Constipation Enoxaparin Sodium 40 mg 05/05/20 23:54 05/09/20 23:52 Enoxaparin Sodium 40 Mg/0.4 Ml Syringe SUBCUT 40 mg Q24H SUPRIYA Administration Levofloxacin 750 mg in 150 mls @ 100 mls/hr 05/05/20 23:54 05/10/20 01:04 EDT Levaquin IV Infused Q24H [facility] Infusion Vancomycin HCl 1,500 mg/ 300 mls @ 200 mls/hr 05/10/20 18:00 Sodium Chloride IV Q12H [facility] Insulin Glargine 12 unit 05/07/20 12:45 05/10/20 08:49 Insulin Glargine,Hum.Rec.Anlog 100 Unit/Ml 10 Ml Vial SUBCUT 12 unit DAILY SUPRIYA Administration Insulin Human Lispro 0 unit 05/07/20 07:30 05/10/20 08:49 Insulin Lispro 100 Unit/Ml 3 Ml Vial SUBCUT 4 unit QIDACHS [facility] Administration Protocol Ondansetron HCl 4 mg 05/05/20 23:54 Ondansetron Hcl 4 Mg/2 Ml Vial IVPUSH Q8H PRN Nausea and Vomiting Oxycodone HCl 5 mg 05/06/20 00:37 05/10/20 03:23 Oxycodone Hcl Immed Release 5 Mg Tablet PO 5 mg Q6H PRN Administration Pain, Severe (Pain Scale 7-10) Pharmacy Consult 1 each 05/05/20 19:28 Consult Rx Perform Med Rec MISCELLANE ONCE PRN Consult order Sodium Chloride 3 ml 05/06/20 00:00 05/10/20 07:44 0.9 % Sodium Chloride Flush 3 Ml Syringe IVFLUSH 3 ml QSHIFT SUPRIYA Administration Time Spent With Patient Time: Total time spent is greater than 50% in coordination of care (as docum ented) at patient's floor/unit and/or counseling patient: Time with patient: 15 - 24 minutes
--- NOTE | 2020-05-10 09:45 | MHC.CM.PN ---
PLAN IS FOR PATIENT TO DISCHARGE HOME TODAY FOLLOWING HIS EVENING DOSE OF VANCO. HOSPITALIST AGREES THAT 16:00 ADMINISTRATION IS ACCEPTABLE. RN AND PATIENT AWARE. [facility] TO START SERVICES TOMORROW MORNING
--- NOTE | 2020-05-10 10:18 | MHC.CM.PN ---
, VICKIE (IN ROOM) WILL BE HOME TONIGHT BETWEEN THE HOURS OF 16:00 - 20:00 TO RECEIVE THE [facility] FOR TOMORROW'S ADMINISTRATION. RORY ([phone]) OF [facility] MADE AWARE.
[2020-05-10 11:58] LABS: Glucose, Whole Blood 276 mg/dL (60-115)
[2020-05-10 12:00] VITALS: BP 140/99; PULSE 83; RESP 18; TEMP 36.7; O2SAT 96
--- NOTE | 2020-05-10 12:11 | P.DS_ITS ---
DS: Providers Provider Date of admission: 05/05/20 20:57 Primary care physician: Gabe Chisholm MD Consults: 05/05/20 16:29 Consult to Infectious Diseases Routine Consulting Provider: Sol Kirkland Reason for consultation: PT ON DAPTO LEFT AMA Has provider been notified: Yes 05/05/20 23:54 Consult to General Surgery Routine Consulting Provider: Hetal Rao Reason for consultation: Osteo Has provider been notified: No Consult to Infectious Diseases Routine Consulting Provider: Sol Kirkland Reason for consultation: right foot osteo Has provider been notified: No DS: Diagnosis Discharge Diagnosis (1) Diabetic ulcer of foot associated with diabetes mellitus due to underlying condition, with fat layer exposed: Status: Acute DS: Summary Hospital Course Hospital Course: 49 year male with diabetes that is not well controlled and not compliance with medication and has diabetic foot ulcer of the left foot with open wound at the plant aspect and abscess and MRI had shown osteomylitis on 04/22. He was admitted from 04/27 and left AMA on 05/01 while he was advised for longtem antibiotics via PICC . He was readmitted essentially for the same thing on 05/05 and this time is agreable to treatment. The foot has been debrided by surgery. Wound culture shows Enteroccocus, Group B Strep and Staph Aurues. ID recommend Vancomycin for 6 week. Has a PICC line since 05/07. Plan is to go home with IV Vanco and VNS. I have started him on Norvasc 5 mg daily and Lisinopril 10 mg daily for uncontrolled HTN. He says he doesn't take insulin he's started on Lantus 15 units in addition to SSI--he has glucometter and other insulin supplies Time Spent with Patient Time attestation: Total time spent providing and/or coordinating discharge services: Physical Exam Vital Signs: Vital Signs: Vital Signs Temp Pulse Resp BP Pulse Ox 05/10/20 08:00 97.3 F 64 18 122/90 H 94 05/10/20 03:15 97.5 F 78 20 156/88 H 96 05/09/20 23:24 98.8 F 80 16 133/86 97 05/09/20 20:00 98.0 F 76 18 151/89 H 97 05/09/20 15:18 99.0 F 88 20 139/85 96 Body Mass Index 38.9 DS: Data Data Completed and Pending Completed studies during hospitalization [Text1]: Procedures Excision of Left Foot Subcutaneous Tissue and Fascia, Open Approach (04/27/20) Labs on day of discharge: Labs from last 24 hours 05/10/20 05/10/20 05/10/20 11:49 07:40 05:13 POC Glucose 276 H 213 H Vancomycin Trough 13.8 05/09/20 05/09/20 20:34 16:55 POC Glucose 186 H 252 H Vancomycin Trough Preliminary micro results at discharge 05/05/20 17:42 Blood Culture - Preliminary Blood - Venous No growth after 48 hours. 05/05/20 17:09 Blood Culture - Preliminary Blood - Venous No growth after 48 hours. Discharge Plan Discharge Patient Disposition: Home Health Service Referrals: [facility] [Other] [facility] [Other] Gabe Chisholm MD [Primary Care Provider] - 2 Weeks (05/22/20 11:00 AM Please call and reschedule if you can't keep this appointment.) Discharge Medications: New vancomycin in 0.9 % sodium chl 1.5 gram/250 mL solution 1.5 g IV Q12H 42 Days Qty: 84 RF: 0 Lantus U-100 Insulin 100 unit/mL Solution 15 unit subcut DAILY Qty: 1 RF: 0 amlodipine 5 mg Tablet 5 mg PO DAILY Qty: 30 RF: 0 Continued (DME) blood sugar diagnostic Strip See Rx Instructions .ROUTE .MEDSUPPLY Qty: 100 RF: 0 (DME) blood-glucose meter Kit See Rx Instructions .ROUTE .MEDSUPPLY Qty: 1 RF: 0 (DME) insulin syr/ndl U100 half galen 0.3 mL 31 gauge x 5/16 syringe See Rx Instructions .ROUTE .MEDSUPPLY Qty: 100 RF: 0 Discontinued doxycycline hyclate 100 mg capsule 100 mg PO BID RF: 0 Discharge Orders: Discharge Order (Routine); Ordered 05/10/20 Ordered By: Steve Bryan Diet: diabetic diet Activity on Discharge: As tolerated Visit Report Forms: Patient Portal Discharge page Care Plan Goals: Resolution of infection in the foot and prevent amputation Health Concerns: Possible worsening of infected foot to the point of needing ampuation Plan of Treatment: Take Vancomycin as recommended, and follow up with your doctor in a week Follow diabetes instrucion including diet and take insulin as recommended
--- NOTE | 2020-05-10 15:04 | P.F2F_ITS ---
Service Date Service Date: 05/10/20 Reasons for Services MD overseeing care: abelardo rosa Homebound: Leaving the home is medically contraindicated at this time without the asist of a device and/or another person due th the listed conditions above and below. Certification: Based on the above findings, I certify that this patient is confined to the home and needs intermittent detention care, physical therapy and/or speech therapy, or continues to need occupational therapy. The patient is under my care, and I have initiated the establishment of the plan of care. The patient will be followed by a physician who will periodically review the plan of care. weekly labs
[2020-05-10 15:38] VITALS: BP 122/67; PULSE 90; RESP 18; TEMP 36; O2SAT 97
[2020-05-10 16:51] LABS: Glucose, Whole Blood 236 mg/dL (60-115)
== END 2020-05-10 19:05 | disposition home health service (06) | DRG 344 ==
LOC: HO.ED 19:44 → HO.IMC 21:39 → HO.S3 05-06 11:15
PROVIDERS: Emergency Medicine; Internal Medicine; Admitting Provider Internal Medicine; Emergency Provider Internal Medicine; PCP Internal Medicine; Visit Provider Internal Medicine
DX: E11.69 Type 2 diabetes mellitus with other specified complication (principal); M86.172 Other acute osteomyelitis, left ankle and foot; E11.42 Type 2 diabetes mellitus with diabetic polyneuropathy; E11.621 Type 2 diabetes mellitus with foot ulcer; J45.909 Unspecified asthma, uncomplicated; F17.210 Nicotine dependence, cigarettes, uncomplicated; Z71.6 Tobacco abuse counseling; Z20.828 Contact with and (suspected) exposure to other viral communicable diseases; L97.422 Non-pressure chronic ulcer of left heel and midfoot with fat layer exposed; B95.2 Enterococcus as the cause of diseases classified elsewhere; B95.61 Methicillin susceptible Staphylococcus aureus infection as the cause of diseases classified elsewhere; B95.1 Streptococcus, group B, as the cause of diseases classified elsewhere; Z88.0 Allergy status to penicillin; Z79.4 Long term (current) use of insulin; Z79.899 Other long term (current) drug therapy
CPT/HCPCS: 36415; 36573; 73701; 80048; 80202; 82947; 83605; 85025; 85652; 86140; 87040; 87635; 96361; 96365; 96367; 99285; C1751; C1894; J0878; J1650; J1956; J3370; Q9967

== ENCOUNTER → 2020-05-12 13:54 | Outpatient (BNVA) | payer OTHER, SELFPAY | PROVIDERS: Visit Provider Internal Medicine | DX: L97.429 Non-pressure chronic ulcer of left heel and midfoot with unspecified severity (principal); E11.621 Type 2 diabetes mellitus with foot ulcer; E11.69 Type 2 diabetes mellitus with other specified complication; L02.612 Cutaneous abscess of left foot; M86.172 Other acute osteomyelitis, left ankle and foot; B95.1 Streptococcus, group B, as the cause of diseases classified elsewhere; B95.7 Other staphylococcus as the cause of diseases classified elsewhere; F17.210 Nicotine dependence, cigarettes, uncomplicated; Z88.0 Allergy status to penicillin | CPT/HCPCS: 99212 ==

== ENCOUNTER 2020-05-15 12:43 | Emergency (ER) | payer OTHER, SELFPAY ==
[2020-05-15 13:04] VITALS: BP 151/81; PULSE 94; RESP 18; TEMP 36.4; O2SAT 99; BMI 38.4
--- NOTE | 2020-05-15 13:13 | XR_ITS ---
EXAMINATION: XR CHEST CLINICAL INFORMATION: Chills and cough. COMPARISON: 01/13/2020 chest radiograph. TECHNIQUE: Frontal view of the chest was obtained. FINDINGS: The lungs are clear. The heart and mediastinal structures are unremarkable. A right-sided PICC is seen at the tip terminating in the superior vena cava. XR/XR chest 1V IMPRESSION: No acute cardiopulmonary process.
--- NOTE | 2020-05-15 13:36 | P.CONGS_ITS ---
History of Present Illness Consult details Narrative: 89-year-old male here in the emergency room because of diabetic foot wound. I had done an I and D of a plantar abscess in the OR last April 28, 2020. He signed out against medical advise on May 01 and came back on May 05 because of this during of the dorsal aspect of the foot. I had done debridement bedside because of the presence of fibrinous debris and nonviable skin on the dorsum of the right foot. He had a PICC line placed for IV antibiotics for osteomyelitis of the 2nd metatarsal and has had a visiting nurse changes dressings at home and for outpatient IV antibiotic treatment. However, he says that yesterday, visiting nurse told him to good the emergency room because of what was felt to be worsening of the foot. He said he did not come yesterday as he did not feel that he needed to go to the ER. He decided to come this morning instead. He denies significant pain on the foot. He states that the I&D site of the plantar aspect is actually healing well. Review of Systems Constitutional: Constitutional: Reports chills and Denies night sweats Cardiovascular: Cardiovascular: Denies chest pain, Denies dyspnea and Denies dyspnea on exertion Respiratory: Respiratory: Denies cough, Denies dyspnea and Denies dyspnea on exertion Gastrointestinal: Gastrointestinal: Denies hematochezia and Denies change in bowel habits Genitourinary: Genitourinary: Denies hematuria and Denies difficulty urinating Musculoskeletal: Musculoskeletal: Denies back pain and Denies limited range of motion Neurologic: Denies focal weakness and Denies convulsions Psychiatric: Psychiatric: Denies depression and Denies mood swings [facility] Past Medical History Medical History Asthma Diabetes Neuropathy Umbilical hernia Surgical History Surgical History (Updated 05/15/20 @ 13:41 by Guido Keane MD) H/O hernia repair Status post incision and drainage Social History Social History Household Members: Significant Other Housing: Apartment Alcohol intake: never Smoking Status: Current every day smoker Tobacco Type: Cigarette Advance Directives: Yes Advance Directives Information Provided: Yes Advance Directives on File: No service: No Meds Allergies Allergy/AdvReac Type Severity Reaction Status Date / Time Penicillins [PENICILLINS] Allergy Mild Rash Verified 05/12/20 14:07 Physical Exam Vital Signs: Vital Signs: Last Vital Signs Temp 97.6 F 05/15/20 13:04 Pulse 94 05/15/20 13:04 Resp 18 05/15/20 13:04 BP 151/81 H 05/15/20 13:04 Pulse Ox 99 05/15/20 13:04 Body Mass Index 38.4 Const: General: comfortable and no acute distress Orientation/consciousness: patient oriented x3 Neck: Neck: Yes no lymphadenopathy Resp: Auscultation: clear to auscultation bilaterally Cardio: Rhythm: regular rhythm GI: Palpation (GI): Soft to palpation, nontender and no guarding Neuro: General: patient oriented x3 Extrem: Other: Right foot - large I&D site on the plantar aspect seems to be healing well, drainage, dry; large open wound on the dorsal aspect of the right foot, deep, involving the subcutaneous layer, about 7 x 5 cm, with fibrinous coating, small amount of pus, nonviable rim of skin, no cellulitis Results Labs Labs: All other labs normal. Assessment and Plan (1) Diabetic ulcer of foot associated with diabetes mellitus due to underlying condition, with fat layer exposed: Qualifiers: Diabetic foot ulcer location: unspecified part of foot Laterality: unspecified laterality Qualified Code(s): E08.621 - Diabetes mellitus due to underlying condition with foot ulcer; L97.502 - Non-pressure chronic ulcer of other part of unspecified foot with fat layer exposed Status: Acute He has had I and D of plantar abscess and debridement of the dorsum. The plantar abscess seemed to have tract before all the way to dorsum. The I&D site on the plantar aspect seemed to have healed well but there was note of an open wound on the dorsum. I had to debride this sharply at bedside using scissors. I packed the open wound with wet to dry and wrapped the foot with Kerlix roll. I had recommended for him to be admitted the hospital as he may need additional debridement most likely. He however says he does not want to stay in the hospital at all and will sign out against medical advise. I did advise him that if he did leave the hospital he should see me next Monday in the office so I can check his wound again at the very least. He was seen with the ER provider at bedside.
--- NOTE | 2020-05-15 14:26 | ED.WOUNDLAC ---
HPI - Wound/Laceration General Chief Complaint: Wound/Laceration Stated Complaint: wound left foot Time Seen by Provider: 05/15/20 12:59 Source: patient and EMS Mode of arrival: ambulatory Limitations: no limitations History of Present Illness HPI narrative: This is a 49-year-old male who is known to facilities for his prior visits here and admissions he has a history of diabetes with noncompliance, asthma, diabetic neuropathy as well as surgical history of umbilical hernia repair, status post amputation of left metatarsals who has had a diabetic foot wound as well as an abscess forehead she has been in and out of the hospital he was 04/27/2020 and at that time treated with IV antibiotics had a PICC line placed in the right upper extremity which he received daptomycin and Levaquin in addition he was seen on the had a abscess from the bottom of the foot drained has been continued on antibiotics with home VNA services states he has been feeling good in relation to the site and foot he does not have any pain or discomfort however in the meantime has had a wound has progressively worse on the dorsum of the foot for which he sees VNA and again he is on long-term antibiotics with PICC line. His VNA had a visit with him yesterday and felt that he need to be re-evaluated in terms of the wound as it appeared worse however he reports that he feels good. He came in today based on the recommendations. He does report yesterday he has slight chills as his has had a cold with similar URI symptoms however today he feels good he has not had any chills or fever. No pain or discomfort in the feet or redness swelling. No GI or symptoms. Of note he has been seen here by General surgery Dr. Lundberg whom has been following pt. Onset (ago): day(s) Extremity Location: left: foot Place: home Patient tetanus UTD: Yes Associated symptoms: none Related Data Previous Rx's Medication Instructions Recorded blood sugar diagnostic #100 ea 05/01/20 blood-glucose meter #1 ea 05/01/20 vancomycin in 0.9 % sodium chl 1.5 g IV Q12H 42 Days #84 packet 05/08/20 amlodipine 5 mg PO DAILY #30 tab 05/09/20 oxycodone 5 mg PO Q6H PRN #14 tab 11/01/20 insulin syr/ndl U100 half galen 0.3 #100 ea 05/11/20 mL 31 gauge x 5/16 nicotine 21 mg/24 hr daily 1 patch TRANSDERMAL Q24H #28 ea 05/12/20 transdermal patch insulin glargine 100 unit/mL (3 20 unit SUBCUT QPM 30 Days #6 ml 05/13/20 mL) subcutaneous pen insulin glargine 100 unit/mL 15 unit SUBCUT DAILY #10 ml 05/13/20 subcutaneous solution Allergies Allergy/AdvReac Type Severity Reaction Status Date / Time Penicillins [PENICILLINS] Allergy Mild Rash Verified 05/12/20 14:07 Review of Systems Review of Systems: Constitutional: No Weight loss, No Fever, No Chills, No Night Sweats, No Fatigue, No Malaise ENT/Mouth: No Hearing loss, No Ear Pain, No Nasal Congestion, No Sinus Pain, No Hoarseness, No sore throat, No Rhinorrhea, No Swallowing Difficulty Eyes: No Eye Pain, No Swelling, No Redness, No Foreign Body, No Discharge, No Vision Changes Cardiovascular: No Chest Pain, No SOB, No Dyspnea on Exertion, No Orthopnea, No Edema, No Palpitations Respiratory: No Cough, No Sputum, No Wheezing, No Smoke Exposure, No Dyspnea Gastrointestinal: No Nausea, No Vomiting, No Diarrhea, No Constipation, No abdominal Pain, No Hematochezia, No Melena Genitourinary: no irregular bleeding, No Dysuria, No Urinary Frequency, No Hematuria, No Urinary Incontinence, No Urgency, No Flank Pain, No Urinary Flow Changes, No Hesitancy Musculoskeletal: No joint pain, No Myalgias, No Joint Swelling Skin: No Skin Lesions, No rash, NOTED IN HPI Neuro: No Weakness, No Numbness, No Paresthesias, No Loss of Consciousness, No Dizziness, No Headache Psych: No Anxiety/Panic, No Depression, No SI/HI/AH/VH, No Social Issues Heme/Lymph: No Bruising, No Bleeding,No Lymphadenopathy Endocrine: No Polyuria, No Polydipsia, No Temperature Intolerance Yes all other systems are reviewed and are negative Neurologic: Denies focal weakness and Denies convulsions PMFSH Past Medical History Medical History (Updated 05/15/20 @ 16:18 by Nathanael Jones NP) Asthma Diabetes Neuropathy Umbilical hernia Surgical History (Updated 05/15/20 @ 13:41 by Guido Lundberg MD) H/O hernia repair Status post incision and drainage Social History Social History Household Members: Significant Other Housing: Apartment Alcohol intake: never Smoking Status: Current every day smoker Tobacco Type: Cigarette service: No Physical Exam Vital Signs: Vital Signs: Last Vital Signs Temp 97.6 F 05/15/20 13:04 Pulse 94 05/15/20 13:04 Resp 18 05/15/20 13:04 BP 151/81 H 05/15/20 13:04 Pulse Ox 99 05/15/20 13:04 Body Mass Index 38.4 Const: General: cooperative and healthy appearing; No acute distress or intoxicated appearing Nutritional Appearance: average body habitus Orientation/consciousness: patient oriented x3 HENMT: Head: Yes normal to inspection Ears: hearing grossly normal bilaterally Eyes: General: appearance normal, both eyes and all related structures Visual Portillo: normal visual portillo by confrontation Neck: Neck: Yes normal visual inspection and No tender Thyroid: Thyroid normal Chest: Chest palpation & inspection: normal inspection of the chest Resp: Effort & Inspection: normal respiratory effort Cardio: Jugular venous distension: no JVD GI: Inspection: Yes normal to inspection Percussion: Yes normal to percussion Auscultation: normal bowel sounds : General: Yes no CVA tenderness Back/Spine/Pelvis: Back: no CVA tenderness Skin: General skin exam: no rashes or lesions noted Neuro: General: patient oriented x3 Extrem: Other: General: Yes normal to inspection Course Course Course Narrative: 1258 Case discussed with General surgery Dr. Lundberg whom came down and is seeing pt at bedside pt resistant to admission Agreeable to labs and plan for wound debridement to the dorsum aspect of the foot at this time by Dr. Gordon If patient declines admission he will sign against medical advice- which I have reviewed with him in great detail and he understands. 1430 Resting comfortably. Delay and his lab draws RN at bedside getting blood work now. He did have the debridement of the wound on the dorsum of the left foot by Dr. Lundberg pls refer to note He still declines admit [facility] has planned visit tomorrow Planned visit with Dr. Lundberg on Monday MDM - Wound/Laceration MDM Narrative Medical decision making narrative: Labs show over derangement hyperglycemia. He continues to decline admission requesting AMA which was again reviewed with him in great detail. The [facility]NA Services did call and advise that he will lose VNA services if he leaves AMA today. Patient was made aware this by myself as well as the RN and the secondary. He states he is not to concern as he is used to take care himself and he only had VNA services for 2 days. States he has an appointment on Monday and will follow up and return if any concerns. Medical Records Attestation: I reviewed the patient's medical records. Lab Data Attestation: I reviewed the patient's lab results. Result diagrams: 05/15/20 14:33 05/15/20 14:33 Labs: Lab Results 05/15/20 05/15/20 05/15/20 Range/Units 14:33 14:33 14:33 WBC 6.0 (4.8-10.8) X10*3/uL RBC 3.99 L (4.60-5.80) X10*6/uL Hgb 10.4 L (14.0-18.0) g/dl Hct 33.6 L (42-52) % MCV 84.2 (80-98) fL MCH 26.1 L (27.0-33.0) pg MCHC 31.0 (31.0-36.0) g/dl RDW 12.7 (11.0-16.0) % Plt Count 379 D (160-400) X10*3/uL MPV 10.2 (9.4-12.4) fL Immature Gran % (Auto) 0.3 (0.0-0.4) % Neut % (Auto) 60.6 (45-73) % Lymph % (Auto) 22.3 (20-40) % [place] % (Auto) 11.6 H (2-11) % Eos % (Auto) 4.5 H (0-4) % Baso % (Auto) 0.7 (0-2) % Lymph # (Auto) 1.3 (1.2-4.9) X10*3/uL [place] # (Auto) 0.7 (0.1-1.2) X10*3/uL Eos # (Auto) 0.3 (0.0-0.4) X10*3/uL Baso # (Auto) 0.0 (0.0-0.2) X10*3/uL Abs Immat Gran (auto) 0.02 (0.00-0.03) X10*3/uL Absolute Neuts (auto) 3.6 (2.0-8.3) X10*3/uL Absolute Nucleated RBC 0.000 (0.0-0.012) X10*3/uL Nucleated RBC % (auto) 0.0 (0.0-0.2) /100WBC Sodium 135 (135-145) mmol/L Potassium 4.5 (3.3-5.1) mmol/l Chloride 97 (96-108) mmol/L Carbon Dioxide 32 H (22-29) mmol/L Anion Gap 11 L (12-20) BUN 18 H (9-16) mg/dL Creatinine 1.24 (0.5-1.4) mg/dL Estim Creat Clear Calc 85.7 Estimated GFR > 60 Random Glucose 526 H* (60-115) mg/dL Lactic Acid 1.5 (0.5-2.0) mmol/L Calcium 7.9 L (8.4-10.2) mg/dL Total Bilirubin < 0.2 (0.0-1.0) mg/dL AST 8 (5-37) U/L ALT 13 (0-40) U/L Alkaline Phosphatase 105 (39-117) U/L Total Protein 6.2 L (6.5-8.0) g/dL Albumin 2.9 L (3.5-5.0) g/dL Discharge Plan Discharge Clinical Impression: Obesity, Visit for wound check Diabetes Qualifiers: Diabetes mellitus type: type 2 Diabetes mellitus medical terminologist insulin use: with medical terminologist use Diabetes mellitus complication status: with other specified complication Qualified Code(s): E11.69 - Type 2 diabetes mellitus with other specified complication Diabetic ulcer of foot associated with diabetes mellitus due to underlying condition, with fat layer exposed Qualifiers: Diabetic foot ulcer location: unspecified part of foot Laterality: left Qualified Code(s): E08.621 - Diabetes mellitus due to underlying condition with foot ulcer Patient Disposition: Left Against Medical Advice Instructions: Diabetic Foot Ulcers (ED), Diabetes and Nutrition (ED), Type 2 Diabetes Management for Adults (ED) Additional Instructions: As recommended by your general surgeon and myself we have recommended that you stay in the hospital for further treatment and you have elected to sign out against medical advice Continue with the home antibiotic as previously prescribed Follow-up with Dr. Lundberg as a Monday Return to emergency room if any concerns or worsening symptoms Thank you Prescriptions: No Action (DME) insulin syr/ndl U100 half galen 0.3 mL 31 gauge x 5/16 syringe See Rx Instructions .ROUTE .MEDSUPPLY Qty: 100 RF: 0 Lantus U-100 Insulin 100 unit/mL solution 15 unit subcut DAILY Qty: 10 RF: 1 Basaglar KwikPen U-100 Insulin 100 unit/mL (3 mL) insulin pen 20 unit subcut QPM 30 Days Qty: 6 RF: 0 (DME) blood sugar diagnostic Strip See Rx Instructions .ROUTE .MEDSUPPLY Qty: 100 RF: 0 (DME) blood-glucose meter Kit See Rx Instructions .ROUTE .MEDSUPPLY Qty: 1 RF: 0 vancomycin in 0.9 % sodium chl 1.5 gram/250 mL solution 1.5 g IV Q12H 42 Days Qty: 84 RF: 0 amlodipine 5 mg Tablet 5 mg PO DAILY Qty: 30 RF: 0 oxycodone 5 mg Tablet 5 mg PO Q6H PRN (Reason: Pain, Severe (Pain Scale 7-10)) Qty: 14 RF: 0 nicotine [Nicoderm CQ] 21 mg/24 hr patch 24 hour 1 patch transdermal Q24H Qty: 28 RF: 0 Referrals: Gabe Chisholm MD [Primary Care Provider] - 3 days Guido Lundberg MD [Physician] - 05/18/20
[2020-05-15 14:50] LABS: Basophils Percent Auto 0.7 % (0-2); Eosinophils Absolute Auto 0.3 X10*3/uL (0.0-0.4); Eosinophils Percent Auto 4.5 % (0-4); Hematocrit 33.6 % (42-52); Hemoglobin 10.4 g/dl (14.0-18.0); Imm Gran Abs Auto 0.02 X10*3/uL (0.00-0.03); Imm Gran Pct Auto 0.3 % (0.0-0.4); Lymphocytes Absolute Auto 1.3 X10*3/uL (1.2-4.9); Lymphocytes Percent Auto 22.3 % (20-40); Mean Corpuscular Hemoglobin 26.1 pg (27.0-33.0); Mean Corpuscular Volume 84.2 fL (80-98); Mean Platelet Volume 10.2 fL (9.4-12.4); Monocytes Absolute Auto 0.7 X10*3/uL (0.1-1.2); Monocytes Percent Auto 11.6 % (2-11); Neutrophils Absolute Auto 3.6 X10*3/uL (2.0-8.3); Neutrophils Percent Auto 60.6 % (45-73); Platelet Count 379 X10*3/uL (160-400); Red Blood Count 3.99 X10*6/uL (4.60-5.80); Red Cell Distribution Width 12.7 % (11.0-16.0)
[2020-05-15 14:52] LABS: MANUAL DIFF FLAG NO
[2020-05-15 15:12] LABS: Lactic Acid 1.5 mmol/L (0.5-2.0)
[2020-05-15 15:19] LABS: Alanine Aminotransferase 13 U/L (0-40); Albumin Level 2.9 g/dL (3.5-5.0); Alkaline Phosphatase 105 U/L (39-117); Anion Gap 11 (12-20); Aspartate Amino Transferase 8 U/L (5-37); Bilirubin Total < 0.2 mg/dL (0.0-1.0); Blood Urea Nitrogen 18 mg/dL (9-16); Calcium 7.9 mg/dL (8.4-10.2); Carbon Dioxide 32 mmol/L (22-29); Chloride 97 mmol/L (96-108); Creatinine Clr Calc Pharmacy 85.7; Estimated Glomerular Filt Rate > 60; Glucose Random 526 mg/dL (60-115); Potassium 4.5 mmol/l (3.3-5.1); Sodium 135 mmol/L (135-145); Total Protein 6.2 g/dL (6.5-8.0)
--- NOTE | 2020-05-15 15:43 | PC.NURSE ---
pt requesting to leave. refuses admission. aware of plan of care for insulin and dc. refused to stay for watch. jitney driver at bedside discussing with pt.
[2020-05-15] MEDS: Insulin Regular, Human 100 UNIT/ML 3 ML VIAL IVPUSH (15:48)
[2020-05-15] MEDS: oxyCODONE HCl Immed Release 5 MG TABLET PO (16:28)
[2020-05-15 17:05] LABS: SARS COV2 PCR INHOUSE NEGATIVE (Negative)
== END 2020-05-15 16:27 | disposition left against medical advice (07) ==
PROVIDERS: Nurse Practitioner Primary Care; Emergency Provider Emergency Medicine; PCP Internal Medicine
DX: L97.502 Non-pressure chronic ulcer of other part of unspecified foot with fat layer exposed (principal); E08.621 Diabetes mellitus due to underlying condition with foot ulcer; Z79.899 Other long term (current) drug therapy; Z20.828 Contact with and (suspected) exposure to other viral communicable diseases; F17.210 Nicotine dependence, cigarettes, uncomplicated; Z71.6 Tobacco abuse counseling
CPT/HCPCS: 36415; 71045; 80053; 83605; 85025; 87040; 99283; U0003

== ENCOUNTER → 2020-05-20 10:51 | Outpatient (BNVA) | payer OTHER, SELFPAY | PROVIDERS: PCP Internal Medicine; Visit Provider Surgery | DX: E11.621 Type 2 diabetes mellitus with foot ulcer (principal); L97.522 Non-pressure chronic ulcer of other part of left foot with fat layer exposed; M86.172 Other acute osteomyelitis, left ankle and foot; Z98.890 Other specified postprocedural states | CPT/HCPCS: 99212 ==

== ENCOUNTER 2020-05-20 18:49 | Emergency (ER) | payer OTHER, SELFPAY ==
[2020-05-20 18:56] VITALS: BP 151/83; PULSE 102; RESP 16; TEMP 36.8; O2SAT 98; BMI 37.5
== END 2020-05-20 22:30 | disposition left against medical advice (07) ==
PROVIDERS: Emergency Provider Emergency Medicine Emergency Medical Services; PCP Internal Medicine
DX: M79.673 Pain in unspecified foot (principal)
CPT/HCPCS: 99281; 99282

== ENCOUNTER 2020-05-21 15:35 | Inpatient (IN) | payer OTHER, SELFPAY ==
[2020-05-21] VITALS (7 sets, daily range): BP systolic 144–179; BP diastolic 87–102; PULSE 76–94; RESP 14–20; TEMP 36.4–37.5; O2SAT 95–99; BMI 39.3
--- NOTE | 2020-05-21 | ECG_ITS ---
Test Reason : CHEST PALPITATIONS Blood Pressure : / mmHG Vent. Rate : 090 BPM Atrial Rate : 090 BPM P-R Int : 144 ms QRS Dur : 094 ms QT Int : 350 ms P-R-T Axes : 058 062 034 degrees QTc Int : 428 ms Normal sinus rhythm Normal ECG When compared with ECG of 20-AUG-2015 09:30, No significant change was found Heart rate has increased Referred By: Generic ED Physician Electronically Signed By:BHUPENDRA HOLM MD
--- NOTE | 2020-05-21 17:05 | ED.ARRPALP ---
HPI - Arrhythmia/Palpitations General Chief Complaint: Wound/Laceration Stated Complaint: foot wound Time Seen by Provider: 05/21/20 16:32 History of Present Illness HPI narrative: Patient is a 49-year-old male with a long history of diabetes. History of osteomyelitis. History of chronic wound to the left foot. Currently on vancomycin at home. Patient has been fairly noncompliant. Has been getting wound changes by visiting nurse. Seen by Dr. Keane from surgery yesterday. Told to come in for further IV antibiotic and wound debridement. Patient denies any fever or chills. No shortness of breath no cough no congestion or upper respiratory symptoms. No diaphoresis. No fever no chills. Patient claims the wound has been fairly steady. He has a PICC line and received his vancomycin today. Related Data Home Medications Medication Instructions Recorded Confirmed albuterol sulfate 2 puff INHALATION Q4-6H PRN 05/21/20 05/21/20 insulin glargine [Basaglar KwikPen 15 unit SUBCUT BEDTIME 05/21/20 05/21/20 U-100 Insulin] oxycodone 5 mg PO Q6H PRN 05/21/20 05/21/20 Previous Rx's Medication Instructions Recorded blood sugar diagnostic #100 ea 05/01/20 blood-glucose meter #1 ea 05/01/20 vancomycin in 0.9 % sodium chl 1.5 g IV Q12H 42 Days #84 packet 05/08/20 amlodipine 5 mg PO DAILY #30 tab 05/09/20 insulin syr/ndl U100 half galen 0.3 #100 ea 05/11/20 mL 31 gauge x 11/22 Allergies Allergy/AdvReac Type Severity Reaction Status Date / Time Penicillins [PENICILLINS] Allergy Mild Rash Verified 05/20/20 11:06 Review of Systems Review of Systems: Constitutional: No Weight loss, No Fever, No Chills, No Night Sweats, No Fatigue, No Malaise ENT/Mouth: No Hearing loss, No Ear Pain, No Nasal Congestion, No Sinus Pain, No Hoarseness, No sore throat, No Rhinorrhea, No Swallowing Difficulty Eyes: No Eye Pain, No Swelling, No Redness, No Foreign Body, No Discharge, No Vision Changes Cardiovascular: No Chest Pain, No SOB, No Dyspnea on Exertion, No Orthopnea, No Edema, No Palpitations Respiratory: No Cough, No Sputum, No Wheezing, No Smoke Exposure, No Dyspnea Gastrointestinal: No Nausea, No Vomiting, No Diarrhea, No Constipation, No abdominal Pain, No Hematochezia, No Melena Genitourinary: no irregular bleeding, No Dysuria, No Urinary Frequency, No Hematuria, No Urinary Incontinence, No Urgency, No Flank Pain, No Urinary Flow Changes, No Hesitancy Musculoskeletal: No joint pain, No Myalgias, No Joint Swelling Skin: Positive diabetic foot ulcer over the left but Neuro: No Weakness, No Numbness, No Paresthesias, No Loss of Consciousness, No Dizziness, No Headache Psych: No Anxiety/Panic, No Depression, No SI/HI/AH/VH, No Social Issues, Heme/Lymph: No Bruising, No Bleeding,No Lymphadenopathy Endocrine: No Polyuria, No Polydipsia, No Temperature Intolerance [facility] Past Medical History Attestation statement: The following information was validated with the patient. Medical History Asthma Diabetes Neuropathy Umbilical hernia Surgical History H/O hernia repair Status post incision and drainage Family History Family History Father Medical history unknown Mother Asthma Hypertension Diabetes Brother Chronic mental illness Social History Social History Household Members: Significant Other Housing: Apartment Alcohol intake: never Smoking Status: Current every day smoker Tobacco Type: Cigarette Cigarettes Per Day: 10 Use of substances other than those prescribed or required for medical reasons: No Advance Directives: No Advance Directives Information Provided: Yes service: No Physical Exam Vital Signs: Vital Signs: Last Vital Signs Temp 98.4 F 05/21/20 16:04 Pulse 94 05/21/20 16:04 Resp 16 05/21/20 16:04 BP 148/90 H 05/21/20 16:04 Pulse Ox 98 05/21/20 16:04 Body Mass Index 39.3 Appearance: Alert. Oriented X3. No acute distress. Eyes: Pupils equal, round and reactive to light. ENT: Pharynx normal. Neck: Normal inspection. Neck supple. No lymph nodes noted. No crepitus CVS: Normal heart rate and rhythm. Pulses normal. Normal S1 and S2 Respiratory: No respiratory distress. Breath sounds normal. No Wheezing. No rales Abdomen: Soft and nontender. No rigidity. No distention. good BS x4 Skin: Skin warm and dry. Normal skin color. Normal skin turgor. Extremities: No lower extremity edema. Neurovascular intact to all extremities. Positive distal left foot ulcer down to subcutaneous tissue. With a fibrinous base. Slight erythema at the edges. Sensation over the foot intact. The wound is approximately 8 cm x 3 cm in size. There is good sensation in the toes. Capillary refill in the toe is intact. Pulses 2+ at dorsalis pedis. There is gross edema noted in the left foot. Neuro: Oriented X 3. No motor deficit. No sensory deficit. Moving all extermities. No slurred speech MDM - Arrhythmia/Palpitations MDM Narrative Medical decision making narrative: Patient's electrolytes are unremarkable white count is 7.1. Patient's sugars 341. In no distress. Will admit patient for further evaluation and debridement tomorrow. Currently in stable condition. Medical Records Attestation: I reviewed the patient's medical records. Lab Data Attestation: I reviewed the patient's lab results. Result diagrams: 05/21/20 17:28 05/21/20 17:28 Labs: Lab Results 05/21/20 05/21/20 05/21/20 Range/Units 17:28 17:28 17:28 WBC 7.1 (4.8-10.8) X10*3/uL RBC 3.70 L (4.60-5.80) X10*6/uL Hgb 9.6 L (14.0-18.0) g/dl Hct 31.1 L (42-52) % MCV 84.1 (80-98) fL MCH 25.9 L (27.0-33.0) pg MCHC 30.9 L (31.0-36.0) g/dl RDW 12.6 (11.0-16.0) % Plt Count 341 (160-400) X10*3/uL MPV 10.4 (9.4-12.4) fL Immature Gran % (Auto) 0.3 (0.0-0.4) % Neut % (Auto) 62.1 (45-73) % Lymph % (Auto) 21.0 (20-40) % [place] % (Auto) 12.3 H (2-11) % Eos % (Auto) 3.9 (0-4) % Baso % (Auto) 0.4 (0-2) % Lymph # (Auto) 1.5 (1.2-4.9) X10*3/uL [place] # (Auto) 0.9 (0.1-1.2) X10*3/uL Eos # (Auto) 0.3 (0.0-0.4) X10*3/uL Baso # (Auto) 0.0 (0.0-0.2) X10*3/uL Abs Immat Gran (auto) 0.02 (0.00-0.03) X10*3/uL Absolute Neuts (auto) 4.4 (2.0-8.3) X10*3/uL Absolute Nucleated RBC 0.000 (0.0-0.012) X10*3/uL Nucleated RBC % (auto) 0.0 (0.0-0.2) /100WBC PT 12.7 (10.8-13.0) SEC INR 1.1 (0.9-1.1) Sodium 138 (135-145) mmol/L Potassium 5.2 H (3.3-5.1) mmol/l Chloride 101 (96-108) mmol/L Carbon Dioxide 29 (22-29) mmol/L Anion Gap 13 (12-20) BUN 16 (9-16) mg/dL Creatinine 1.31 (0.5-1.4) mg/dL Estim Creat Clear Calc 82.2 Estimated GFR 58 Random Glucose 317 H D (60-115) mg/dL Calcium 7.9 L (8.4-10.2) mg/dL ECG Data Attestation: I personally reviewed and interpreted this ECG as follows: Interpretation: Sinus heart rate is 90 NE QRS QT within normal limits is no acute ST segment elevation noted. Discharge Plan Discharge Prescriptions: No Action (DME) insulin syr/ndl U100 half galen 0.3 mL 31 gauge x 5/16 syringe See Rx Instructions .ROUTE .MEDSUPPLY Qty: 100 RF: 0 (DME) blood sugar diagnostic Strip See Rx Instructions .ROUTE .MEDSUPPLY Qty: 100 RF: 0 (DME) blood-glucose meter Kit See Rx Instructions .ROUTE .MEDSUPPLY Qty: 1 RF: 0 Basaglar KwikPen U-100 Insulin 100 unit/mL (3 mL) insulin pen 15 unit subcut BEDTIME RF: 0 oxycodone 5 mg Tablet 5 mg PO Q6H PRN (Reason: Breakthrough Pain, Moderate) RF: 0 albuterol sulfate 90 mcg/actuation Hfa Aerosol Inhaler 2 puff INHALATION Q4-6H PRN (Reason: Respiratory Distress) RF: 0 vancomycin in 0.9 % sodium chl 1.5 gram/250 mL solution 1.5 g IV Q12H 42 Days Qty: 84 RF: 0 amlodipine 5 mg Tablet 5 mg PO DAILY Qty: 30 RF: 0
--- NOTE | 2020-05-21 17:18 | P.CONGS_ITS ---
History of Present Illness Consult details Narrative: 49M here in the ED for a DM foot. He is well known to me,. I had done derbidement and I and D of a plantar abscess last April 28, 2020 in the hospital. He signed out against medical advice after that but came back the following week because of a drainaing wound on the dorsal aspect of the same foot. I had done debridement at bedside and he was started on IV abx for osteomyelitis of the 2nd metatarsal. He had a PICC line in place. He is being followed as an outpt by both the [facility] and myself and was advised last week to be admitted because of worsening of the wound on the dorsum. He signed out against medical advise from the ED. I saw him the office yesterday and arranged for him to go the the ED to be admitted but he did not do so until this afternoon. He was supposed to have blood draw to monitopr his kidney function and Vanco levels but he has not had this done either. He otherwise says he feels well.. Review of Systems Constitutional: Constitutional: Denies chills and Denies fever(s) Cardiovascular: Cardiovascular: Denies chest pain, Denies dyspnea and Denies dyspnea on exertion Respiratory: Respiratory: Denies cough, Denies dyspnea and Denies dyspnea on exertion Gastrointestinal: Gastrointestinal: Denies hematochezia and Denies change in bowel habits Genitourinary: Genitourinary: Denies hematuria and Denies difficulty urinating Musculoskeletal: Musculoskeletal: Denies back pain and Denies limited range of motion Neurologic: Denies focal weakness and Denies convulsions Psychiatric: Psychiatric: Denies depression and Denies mood swings [facility] Past Medical History Medical History (Updated 05/22/20 @ 12:54 by Gabe Chisholm MD) Asthma Diabetes Diabetes mellitus Neuropathy Obesity (BMI 30-39.9) Osteomyelitis of left foot Umbilical hernia Family History Family History Father Medical history unknown Mother Asthma Hypertension Diabetes Brother Chronic mental illness Surgical History Surgical History H/O hernia repair Status post incision and drainage Social History Social History Household Members: Significant Other Housing: Apartment Alcohol intake: never Smoking Status: Current every day smoker Tobacco Type: Cigarette Cigarettes Per Day: 10 service: No Current occupational status: employed Meds Allergies Allergy/AdvReac Type Severity Reaction Status Date / Time Penicillins [PENICILLINS] Allergy Mild Rash Verified 05/20/20 11:06 Home Medications Medication Instructions Recorded Confirmed Type albuterol sulfate 2 puff INHALATION Q4-6H PRN 05/21/20 05/21/20 History insulin glargine [Basaglar KwikPen 15 unit SUBCUT BEDTIME 05/21/20 05/21/20 History U-100 Insulin] oxycodone 5 mg PO Q6H PRN 05/21/20 05/21/20 History Physical Exam Vital Signs: Vital Signs: Last Vital Signs Temp 98.4 F 05/21/20 16:04 Pulse 94 05/21/20 16:04 Resp 16 05/21/20 16:04 BP 148/90 H 05/21/20 16:04 Pulse Ox 98 05/21/20 16:04 Body Mass Index 39.3 Const: General: comfortable and no acute distress Orientation/consciousness: patient oriented x3 Neck: Neck: Yes no lymphadenopathy Resp: Auscultation: clear to auscultation bilaterally Cardio: Rhythm: regular rhythm GI: Palpation (GI): Soft to palpation, nontender and no guarding Neuro: General: patient oriented x3 Extrem: Other: right foot - open wound about 8 cm in widest dimension, with thick fibrinous debride, some surrounding redness, foul smell; plantar wound s eems to continue to heel Results Labs Result diagrams: 05/22/20 06:35 05/22/20 06:35 Labs: All other labs normal. Assessment and Plan (1) Diabetic ulcer of foot associated with diabetes mellitus due to underlying condition, with fat layer exposed: Qualifiers: Diabetic foot ulcer location: unspecified part of foot Laterality: left Qualified Code(s): E08.621 - Diabetes mellitus due to underlying condition with foot ulcer; L97.522 - Non-pressure chronic ulcer of other part of left foot with fat layer exposed Status: Acute I had advised him to be admitted because of his worsening left foot wound. I will schedule him for debridement in the OR tomorrow. He will need to have blood draws for Vanco monitoring as well as for kidney function as he has been on vanco odilia PICC line at home. He is a bad diabetic so I had advised the ED staff to admit him under the medical service. I have explained to the patient the planned procedure of debridement under anesthesia in the OR. He understands the risks, benefits and alternatives. Procedures Abscess I/D Date of Service: 05/21/20
[2020-05-21 17:36] LABS: Basophils Percent Auto 0.4 % (0-2); Eosinophils Absolute Auto 0.3 X10*3/uL (0.0-0.4); Eosinophils Percent Auto 3.9 % (0-4); Hematocrit 31.1 % (42-52); Hemoglobin 9.6 g/dl (14.0-18.0); Imm Gran Abs Auto 0.02 X10*3/uL (0.00-0.03); Imm Gran Pct Auto 0.3 % (0.0-0.4); Lymphocytes Absolute Auto 1.5 X10*3/uL (1.2-4.9); Mean Corpuscular HGB Conc 30.9 g/dl (31.0-36.0); Mean Corpuscular Hemoglobin 25.9 pg (27.0-33.0); Mean Corpuscular Volume 84.1 fL (80-98); Mean Platelet Volume 10.4 fL (9.4-12.4); Monocytes Absolute Auto 0.9 X10*3/uL (0.1-1.2); Monocytes Percent Auto 12.3 % (2-11); Neutrophils Absolute Auto 4.4 X10*3/uL (2.0-8.3); Neutrophils Percent Auto 62.1 % (45-73); Platelet Count 341 X10*3/uL (160-400); Red Cell Distribution Width 12.6 % (11.0-16.0); White Blood Count 7.1 X10*3/uL (4.8-10.8)
[2020-05-21 17:37] LABS: MANUAL DIFF FLAG NO
[2020-05-21 17:43] LABS: INTERNATIONAL NORM RATIO 1.1 (0.9-1.1); Prothrombin Time 12.7 SEC (10.8-13.0)
[2020-05-21 17:58] LABS: Anion Gap 13 (12-20); Blood Urea Nitrogen 16 mg/dL (9-16); Calcium 7.9 mg/dL (8.4-10.2); Carbon Dioxide 29 mmol/L (22-29); Chloride 101 mmol/L (96-108); Creatinine Clr Calc Pharmacy 82.2; Estimated Glomerular Filt Rate 58; Glucose Random 317 mg/dL (60-115); Potassium 5.2 mmol/l (3.3-5.1); Sodium 138 mmol/L (135-145)
[2020-05-21 18:15] LABS: Glucose, Whole Blood 253 mg/dL (60-115)
[2020-05-21 18:15] LABS: Glucose, Whole Blood > 600 mg/dL (60-115)
[2020-05-21 18:18] LABS: Vancomycin Random < 3.0 mcg/mL (15-20)
[2020-05-21 18:21] LABS: COVID-19 Test Negative (Negative); Lactic Acid 1.1 mmol/L (0.5-2.0)
[2020-05-21 18:45] LABS: Erythrocyte Sedimentation Rate 106 MM/HR (0-15)
[2020-05-21] MEDS: HYDROmorphone HCl 0.5 MG/0.5 ML SYRINGE IVPUSH (19:11)
--- NOTE | 2020-05-21 20:36 | PC.NURSE ---
PT RESTING IN STRETCHER WITH DRESSING APPLIED TO LEFT FOOT. PT STATES MY PAIN IS BETTER . PT ALERT AND DENIES ANY COMPLAINTS AT THIS TIME. AWAITING FURTHER ORDERS.
--- NOTE | 2020-05-21 20:36 | PC.NURSE ---
PT URINATED IN URINAL AND SAMPLE SENT TO LAB.
[2020-05-21 21:09] LABS: Glucose Urine UA 500 MG/DL (NEG); Leukocyte Esterase Urine NEG (NEG); Nitrite Urine NEG (NEG); PH 6.5 (5.0-8.0); Specific Gravity - Urine 1.025 (1.005-1.025); Urine Blood TRACE (NEG); Urine Ketones NEG (NEG); Urine Protein 2+ MG/DL (NEG-TRACE)
[2020-05-21 21:10] LABS: Appearance Urine CLEAR; Color Urine YELLOW
--- NOTE | 2020-05-21 21:11 | PC.NURSE ---
report given to floor. Pt awaiting for transfer to floor. Pt left ED in NAD.
[2020-05-21 21:15] LABS: Bacteria Urine 1+ /LPF; Squamous Epithelial Cell Urine 1+ /LPF; WBC Urine 0 /HPF (0-4)
[2020-05-21 22:22] LABS: Glucose, Whole Blood 350 mg/dL (60-115)
--- NOTE | 2020-05-21 22:34 | HP_ITS ---
Pt seen and examined independently. I agree with note, assessment and plan of AIME. DATE OF SERVICE: 05/21/2020 CHIEF COMPLAINT: Foot pain. HISTORY OF PRESENT ILLNESS: 49-year-old man with multiple medical problems including diabetes mellitus and diabetic foot ulcer. The patient has been treated for a left foot diabetic ulcer for the last several months. He was discharged on May 10 and at that time, he had an open wound and an abscess and MRI showing osteomyelitis in April of 2020. It appears that he has had several admissions where he has left against medical advice and he has a PICC line. He has been on vancomycin since April 27. Blood culture on April 28 showed Enterococcus faecalis, strep, and Staphylococcus aureus. The patient has been put on vancomycin. He was seen by the general surgeon in his office yesterday and he had undergone an I and D to the plantar aspect of his foot on April 28. May 15, he presented to the ER again because of worsening drainage, however, he had refused admission. According to the general surgeon's note, the plan was for the patient to be admitted today to have further debridement likely tomorrow. The patient denied fever, chills, nausea, vomiting, or diarrhea. He did have multiple organisms in the wound again including Enterococcus, Staph aureus, and group B strep and has had issues with poor wound healing. His blood sugars noted to be over 500 today. He reports that he is doing wound dressings at home 3 times a day. He was given IV pain medication while in the ER and he will be continued on IV vancomycin. He will be admitted for further management and treatment of diabetic foot ulcer. PAST MEDICAL HISTORY: 1. Diabetes mellitus. 2. Smoker. 3. Obesity. 4. Diabetic foot wound. 5. Neuropathy. 6. Umbilical hernia. 7. Asthma. PAST SURGICAL HISTORY: None other than foot wound debridement. SOCIAL HISTORY: Denies any alcohol, tobacco, or illicit drug use. ALLERGIES: ALLERGIES TO PENICILLIN. MEDICATIONS: 1. Albuterol sulfate 2 puffs p.o. q.4 to 6 hours as needed for shortness of breath or wheezing. 2. Amlodipine 5 mg p.o. daily. 3. Insulin glargine 15 units subcu at bedtime. 4. Oxycodone 5 mg p.o. q.6 hours p.r.n. for pain. 5. Vancomycin. REVIEW OF SYSTEMS: CONSTITUTIONAL: Denies any recent fever, chills, or decrease in appetite. RESPIRATORY: Denies any shortness of breath, cough, or sputum production. CARDIOVASCULAR: Denies any chest pain, orthopnea, PND, or edema. GASTROINTESTINAL: Denies any dysphagia, abdominal pain, nausea, vomiting, or diarrhea. GENITOURINARY: Denies any dysuria, frequency, or hematuria. MUSCULOSKELETAL: Denies joint pain or swelling. NEUROPSYCH: Denies any weakness or seizures. All other systems reviewed and are negative. PHYSICAL EXAMINATION: CONSTITUTIONAL: Resting in bed. No acute distress. VITAL SIGNS: 98.4, 89, 16, 161/102, and 98% on room air. SKIN: Wound to left plantar aspect of foot, quite large at least 2 to 3 inches in length with no eschar, but hardened skin surrounding with no fluctuance or drainage noted. Other wound on the dorsum aspect of the foot just below the lines of the toes with yellow wound bed and surrounding skin pink. HEENT: Head is normocephalic and atraumatic. Eyes, pupils are PERRLA. Sclerae anicteric. Mouth and throat, mucous membranes are intact and moist. NECK: Supple. No lymphadenopathy. No JVD noted. CHEST: Clear to auscultation without wheezes, rhonchi, or rales. HEART: Regular rate and rhythm. Clear S1, S2. No murmurs, rubs, or gallops. ABDOMEN: Obese. Positive bowel sounds. Soft and nontender. No hepatomegaly or splenomegaly noted. NEURO: The patient is alert and oriented x3. Cranial nerves II through XII grossly intact without focal deficits. LABORATORY DATA: WBC 7.1, hemoglobin 9.6, hematocrit 31.1, and platelets 341. Sodium is 138, potassium is 5.2, chloride is 101, BUN is 16, creatinine is 1.31, blood glucose is 253, at one point above 600 with no anion gap. Coronavirus negative. ASSESSMENT AND PLAN: 49-year-old man who is being admitted with diabetic foot ulcer, necessitating debridement. 1. Diabetic foot ulcer. General Surgery consultation. Continue vancomycin and ID consult. Pain medication as needed. 2. Diabetes mellitus. The patient reports that he is on Lantus at home. He apparently was started on metformin while he was inpatient, but he reported that he had left AMA and was never given a prescription. We will restart this as the patient's blood sugars are quite high and place on sliding scale. ADA diet. 3. Hypertension. Stable blood pressure. Continue amlodipine. 4. Deep vein thrombosis prophylaxis with Lovenox. 5. Case discussed with Dr. Echeverria. 6. Full code. JULIUS Tena JR/AARON / [id number] MTDToshia
[2020-05-21] MEDS: Enoxaparin Sodium 40 MG/0.4 ML SYRINGE SUBCUT (22:55)
[2020-05-21] MEDS: oxyCODONE HCl Immed Release 5 MG TABLET PO (22:56)
[2020-05-21] MEDS: Insulin Lispro 100 UNIT/ML 3 ML VIAL SUBCUT (22:56)
[2020-05-21] MEDS: Insulin Glargine,Hum.rec.anlog 100 UNIT/ML 10 ML VIAL 15 UNIT SUBCUT (22:57)
[2020-05-22] MEDS: 0.9 % Sodium Chloride Flush 3 ML SYRINGE IVFLUSH ×2 (00:33→07:46)
[2020-05-22 04:00] VITALS: BP 160/76; PULSE 95; RESP 16; TEMP 37.7; O2SAT 99
[2020-05-22 06:54] LABS: MANUAL DIFF FLAG NO
[2020-05-22 07:00] LABS: Basophils Percent Auto 0.4 % (0-2); Eosinophils Absolute Auto 0.2 X10*3/uL (0.0-0.4); Hematocrit 32.5 % (42-52); Hemoglobin 10.1 g/dl (14.0-18.0); Imm Gran Abs Auto 0.03 X10*3/uL (0.00-0.03); Imm Gran Pct Auto 0.4 % (0.0-0.4); Lymphocytes Absolute Auto 1.3 X10*3/uL (1.2-4.9); Mean Corpuscular HGB Conc 31.1 g/dl (31.0-36.0); Mean Corpuscular Volume 83.8 fL (80-98); Mean Platelet Volume 10.5 fL (9.4-12.4); Monocytes Absolute Auto 0.9 X10*3/uL (0.1-1.2); Monocytes Percent Auto 11.1 % (2-11); Neutrophils Absolute Auto 5.4 X10*3/uL (2.0-8.3); Neutrophils Percent Auto 68.1 % (45-73); Platelet Count 337 X10*3/uL (160-400); Red Blood Count 3.88 X10*6/uL (4.60-5.80); Red Cell Distribution Width 12.9 % (11.0-16.0); White Blood Count 7.9 X10*3/uL (4.8-10.8)
[2020-05-22 07:32] LABS: Anion Gap 13 (12-20); Blood Urea Nitrogen 16 mg/dL (9-16); Calcium 8.1 mg/dL (8.4-10.2); Carbon Dioxide 30 mmol/L (22-29); Chloride 101 mmol/L (96-108); Creatinine Clr Calc Pharmacy 107.7; Estimated Glomerular Filt Rate > 60; Glucose Random 162 mg/dL (60-115); Potassium 4.6 mmol/l (3.3-5.1); Sodium 139 mmol/L (135-145)
[2020-05-22 07:38] VITALS: BP 143/81; PULSE 96; RESP 18; TEMP 36.8; O2SAT 99
[2020-05-22] MEDS: metFORMIN HCl 1,000 MG TABLET 1000 MG PO (07:41)
[2020-05-22] MEDS: amLODIPine Besylate 5 MG TABLET PO (07:41)
[2020-05-22] MEDS: oxyCODONE HCl Immed Release 5 MG TABLET PO (07:45)
[2020-05-22 08:09] LABS: Glucose, Whole Blood 148 mg/dL (60-115)
--- NOTE | 2020-05-22 09:19 | P.DS_ITS ---
DS: Providers Provider Date of admission: 05/21/20 20:08 Primary care physician: Gabe Chisholm MD Consults: 05/21/20 21:34 Consult to General Surgery Routine Consulting Provider: Guido Keane Reason for consultation: DIABETIC FOOT WOUND Has provider been notified: No Consult to Infectious Diseases Routine Consulting Provider: Sol Kirkland Reason for consultation: DIABETIC FOOT WOUND, ON VANCO Has provider been notified: No DS: Diagnosis Discharge Diagnosis (1) Diabetic ulcer of foot associated with diabetes mellitus due to underlying condition, with fat layer exposed: Status: Acute DS: Medications Discharge Medications Home Medications: Home Medications Medication Instructions Recorded Confirmed albuterol sulfate 2 puff INHALATION Q4-6H PRN 05/21/20 05/21/20 insulin glargine [Basaglar KwikPen 15 unit SUBCUT BEDTIME 05/21/20 05/21/20 U-100 Insulin] oxycodone 5 mg PO Q6H PRN 05/21/20 05/21/20 Previous Rx's Medication Instructions Recorded blood sugar diagnostic #100 ea 05/01/20 blood-glucose meter #1 ea 05/01/20 vancomycin in 0.9 % sodium chl 1.5 g IV Q12H 42 Days #84 packet 05/08/20 amlodipine 5 mg PO DAILY #30 tab 05/09/20 insulin syr/ndl U100 half galen 0.3 #100 ea 05/11/20 mL 31 gauge x 5/16 DS: Summary Hospital Course Hospital Course: Patient was admitted for worsening diabetic foot ulcer with osteomyelitis. Plan was IV antibiotics unlikely surgery, however, surgery had to be postponed as patient 8 this a.m., therefore patient wanted to leave against medical advice. He was advised to stay due to risks of sepsis, possible , patient understands risks and would like to leave anyways. Time Spent with Patient Time attestation: Total time spent providing and/or coordinating discharge services: Physical Exam Vital Signs: Vital Signs: Last Vital Signs Temp 98.2 F 05/22/20 07:38 Pulse 96 05/22/20 07:38 Resp 18 05/22/20 07:38 BP 143/81 H 05/22/20 07:38 Pulse Ox 99 05/22/20 07:38 Body Mass Index 39.3 DS: Data Data Completed and Pending Completed studies during hospitalization [Text1]: Procedures Excision of Left Foot Subcutaneous Tissue and Fascia, Open Approach (05/05/20) Extraction of Left Foot Skin, External Approach (05/05/20) Insertion of Infusion Device into Superior Vena Cava, Percutaneous Approach (05/05/20) Ultrasonography of Superior Vena Cava, Guidance (05/05/20) Labs on day of discharge: 05/21/20 ECG 12 lead EKG Stat 05/21/20 15:42 EKG Documentation DIRECTED 05/21/20 17:28 Basic Metabolic Panel Stat Complete Blood Count Auto Diff Stat Erythrocyte Sedimentation Rate Stat Prothrombin Time INR Stat Vancomycin Random Stat 05/21/20 17:59 COVID-19 ID NOW ([facility]) Stat Lactic Acid Stat 05/21/20 18:10 Glucose, Whole Blood Routine 05/21/20 18:12 Glucose, Whole Blood Routine 05/21/20 18:35 HYDROmorphone HCl [Dilaudid] 0.5 mg IVPUSH ONCE ONE 05/21/20 20:05 Transfer Order Routine 05/21/20 22:18 Glucose, Whole Blood Routine 05/22/20 06:35 Basic Metabolic Panel DAILY@0600 Complete Blood Count Auto Diff DAILY@0600 05/22/20 07:36 Glucose, Whole Blood Routine 05/22/20 08:24 ceFAZolin Sodium/Dextrose,Iso [Ancef] 2 gm in 50 ml IV PREOP 05/22/20 21:00 Insulin Glargine,Hum.rec.anlog [Lantus] 15 unit SUBCUT BEDTIME Laboratory Last Values WBC 7.9 X10*3/uL (4.8-10.8) 05/22/20 06:35 RBC 3.88 X10*6/uL (4.60-5.80) L 05/22/20 06:35 Hgb 10.1 g/dl (14.0-18.0) L 05/22/20 06:35 Hct 32.5 % (42-52) L 05/22/20 06:35 MCV 83.8 fL (80-98) 05/22/20 06:35 MCH 26.0 pg (27.0-33.0) L 05/22/20 06:35 MCHC 31.1 g/dl (31.0-36.0) 05/22/20 06:35 RDW 12.9 % (11.0-16.0) 05/22/20 06:35 Plt Count 337 X10*3/uL (160-400) 05/22/20 06:35 MPV 10.5 fL (9.4-12.4) 05/22/20 06:35 Immature Gran % (Auto) 0.4 % (0.0-0.4) 05/22/20 06:35 Neut % (Auto) 68.1 % (45-73) 05/22/20 06:35 Lymph % (Auto) 17.0 % (20-40) L 05/22/20 06:35 [place] % (Auto) 11.1 % (2-11) H 05/22/20 06:35 Eos % (Auto) 3.0 % (0-4) 05/22/20 06:35 Baso % (Auto) 0.4 % (0-2) 05/22/20 06:35 Lymph # (Auto) 1.3 X10*3/uL (1.2-4.9) 05/22/20 06:35 [place] # (Auto) 0.9 X10*3/uL (0.1-1.2) 05/22/20 06:35 Eos # (Auto) 0.2 X10*3/uL (0.0-0.4) 05/22/20 06:35 Baso # (Auto) 0.0 X10*3/uL (0.0-0.2) 05/22/20 06:35 Abs Immat Gran (auto) 0.03 X10*3/uL (0.00-0.03) 05/22/20 06:35 Absolute Neuts (auto) 5.4 X10*3/uL (2.0-8.3) 05/22/20 06:35 Absolute Nucleated RBC 0.000 X10*3/uL (0.0-0.012) 05/22/20 06:35 Nucleated RBC % (auto) 0.0 /100WBC (0.0-0.2) 05/22/20 06:35 ESR 106 MM/HR (0-15) H 05/21/20 17:28 PT 12.7 SEC (10.8-13.0) 05/21/20 17:28 INR 1.1 (0.9-1.1) 05/21/20 17:28 Sodium 139 mmol/L (135-145) 05/22/20 06:35 Potassium 4.6 mmol/l (3.3-5.1) 05/22/20 06:35 Chloride 101 mmol/L (96-108) 05/22/20 06:35 Carbon Dioxide 30 mmol/L (22-29) H 05/22/20 06:35 Anion Gap 13 (12-20) 05/22/20 06:35 BUN 16 mg/dL (9-16) 05/22/20 06:35 Creatinine 1.00 mg/dL (0.5-1.4) 05/22/20 06:35 Estim Creat Clear Calc 107.7 05/22/20 06:35 Estimated GFR > 60 05/22/20 06:35 POC Glucose 148 mg/dL (60-115) H 05/22/20 07:36 Random Glucose 162 mg/dL (60-115) H D 05/22/20 06:35 Lactic Acid 1.1 mmol/L (0.5-2.0) 05/21/20 17:59 Calcium 8.1 mg/dL (8.4-10.2) L 05/22/20 06:35 Urine Color YELLOW 05/21/20 20:47 Urine Appearance CLEAR 05/21/20 20:47 Urine pH 6.5 (5.0-8.0) 05/21/20 20:47 Ur Specific [place] 1.025 (1.005-1.025) 05/21/20 20:47 Urine Protein 2+ MG/DL (NEG-TRACE) H 05/21/20 20:47 Urine Glucose (UA) 500 MG/DL (NEG) H 05/21/20 20:47 Urine Ketones NEG MG/DL (NEG) 05/21/20 20:47 Urine Blood TRACE (NEG) 05/21/20 20:47 Urine Nitrite NEG (NEG) 05/21/20 20:47 Ur Leukocyte Esterase NEG (NEG) 05/21/20 20:47 Urine RBC 1-4 /HPF (0) 05/21/20 20:47 Urine WBC 0 /HPF (0-4) 05/21/20 20:47 Ur Squamous Epith Cells 1+ /LPF 05/21/20 20:47 Urine Bacteria 1+ /LPF 05/21/20 20:47 Random Vancomycin < 3.0 mcg/mL (15-20) L 05/21/20 17:28 COVID-19 ([facility]) Negative (Negative) 05/21/20 17:59 COVID-19 Clin Com See Note 05/21/20 17:59 Preliminary micro results at discharge 05/21/20 17:28 Routine Culture - Preliminary Foot Left Culture in progress. Discharge Plan Discharge Patient Disposition: Left Against Medical Advice Referrals: Gabe Chisholm MD [Primary Care Provider] - Discharge Medications: No Action (DME) insulin syr/ndl U100 half galen 0.3 mL 31 gauge x 5/16 syringe See Rx Instructions .ROUTE .MEDSUPPLY Qty: 100 RF: 0 (DME) blood sugar diagnostic Strip See Rx Instructions .ROUTE .MEDSUPPLY Qty: 100 RF: 0 (DME) blood-glucose meter Kit See Rx Instructions .ROUTE .MEDSUPPLY Qty: 1 RF: 0 Basaglar KwikPen U-100 Insulin 100 unit/mL (3 mL) insulin pen 15 unit subcut BEDTIME RF: 0 oxycodone 5 mg Tablet 5 mg PO Q6H PRN (Reason: Breakthrough Pain, Moderate) RF: 0 albuterol sulfate 90 mcg/actuation Hfa Aerosol Inhaler 2 puff INHALATION Q4-6H PRN (Reason: Respiratory Distress) RF: 0 vancomycin in 0.9 % sodium chl 1.5 gram/250 mL solution 1.5 g IV Q12H 42 Days Qty: 84 RF: 0 amlodipine 5 mg Tablet 5 mg PO DAILY Qty: 30 RF: 0 Discharge Orders: Discharge Order (Routine); Ordered 05/22/20 Ordered By: Steve Bryan Discharge Date/Time: 05/22/20 09:41 Care Plan Goals: Health Concerns: Plan of Treatment:
--- NOTE | 2020-05-22 09:38 | PC.NURSE ---
pt left ama, refused to waitr until monday for surgery. iv removed picc line intact for home infusion. foot dsg changed. risk explained pt states understanding. dr hernández and dr torres aware.
--- NOTE | 2020-05-22 10:05 | MHC.CM.PN ---
PT LIVES WITH HIS GF AND IS INDEPENDENT WITH ALL CARE AND MOBILITY AT BASELINE. PT IS ACTIVE WITH [facility] AND [facility]. PT REPORTS HE IS LEAVING AMA THIS MORNING. HE REPORTS THE SURGEON CANNOT DO THE PROCEDURE BEFORE MONDAY BECAUSE THE PT ATE BREAKFAST. PT STATES HE WOULD RATHER WAIT AT HOME AND WILL COME BACK MONDAY NIGHT TO HAVE THE PROCEDURE MONDAY. PT REPORTS HE ALREADY HAS HIS IV MEDICATION AND SUPPLIES AT HOME AND HE HAS BEEN MANAGING THE INFUSIONS. PT REPORTS THE NURSE FROM [facility] COMES IN TO DO THE DRESSING CHANGES BUT HE ALSO HAS SUPPLIES AT HOME. PT LEAVING AMA CONTINUE WITH [facility] AND [facility] GF TO TRANSPORT
--- NOTE | 2020-05-22 11:51 | P.EN_ITS ---
Event Note Date of Service: 05/22/20 Event Note: pt had eaten a full breakfast - he was instructed multiple times l ast night not to eat anything for breakfast as anesthesia will require being NPO for 8 hours preop for diabetics explained to him that there will be signficant delay after above, nurse reported that the patient decided to sign out AMA again; he had told the nurse he will come back to have the debridement done next week it is noted that the patient has signed out AMA from the hospital and ED multiple times
== END 2020-05-22 09:41 | disposition left against medical advice (07) | DRG 380 ==
LOC: HO.ED 16:12 → HO.S3 20:46
PROVIDERS: Nurse Practitioner Acute Care; Admitting Provider Internal Medicine; Emergency Provider Emergency Medicine Emergency Medical Services; PCP Internal Medicine; Visit Provider Internal Medicine
DX: E11.621 Type 2 diabetes mellitus with foot ulcer (principal); L97.529 Non-pressure chronic ulcer of other part of left foot with unspecified severity; L97.429 Non-pressure chronic ulcer of left heel and midfoot with unspecified severity; E11.42 Type 2 diabetes mellitus with diabetic polyneuropathy; Z20.828 Contact with and (suspected) exposure to other viral communicable diseases; F17.210 Nicotine dependence, cigarettes, uncomplicated; Z71.6 Tobacco abuse counseling; E66.9 Obesity, unspecified; Z68.39 Body mass index [BMI] 39.0-39.9, adult; Z88.0 Allergy status to penicillin; Z79.4 Long term (current) use of insulin; Z79.891 Long term (current) use of opiate analgesic; Z79.899 Other long term (current) drug therapy
CPT/HCPCS: 36415; 80048; 80202; 81001; 82947; 83605; 85025; 85610; 85652; 87040; 87071; 87077; 87186; 87205; 87635; 93005; 96374; 99284; 99285; J1170; J1650; J3370

== ENCOUNTER 2020-05-25 16:02 | Inpatient (IN) | payer OTHER, SELFPAY ==
[2020-05-25 18:26] VITALS: BP 143/76; PULSE 90; RESP 16; TEMP 37.3; O2SAT 99; BMI 37.5
--- NOTE | 2020-05-25 20:58 | ED.WOUNDLAC ---
HPI - Wound/Laceration General Chief Complaint: Wound/Laceration Stated Complaint: foot problem Time Seen by Provider: 05/25/20 20:47 Source: patient Mode of arrival: ambulatory Limitations: no limitations History of Present Illness HPI narrative: 49 y/o male with history of DM with longstanding left foot diabetic foot wound with known osteomyelitis s/p 6 weeks of IV Vancomycin (grew Enterococcus, Staph, and GBS) presents back to the ER for evaluation of his ongoing foot would after he left AMA 2 days. He was admitted with plans for OR for debridement on Monday however patient accidentally ate breakfast that day so the surgery needed to be postponed. Patient left AMA because he did not want to wait the weekend in the hospital. He states his PICC line was taken out yesterday as he completed his 6 weeks of IV vanco. He denies fevers at home. He reports chronic pain of his left foot. No new pain and no new injury. It has been discolored with drainage for over 1 week. Extremity Location: left: foot Related Data Home Medications Medication Instructions Recorded Confirmed albuterol sulfate 2 puff INHALATION Q4H PRN 05/21/20 05/25/20 insulin glargine [Basaglar KwikPen 20 unit SUBCUT BEDTIME 05/21/20 05/25/20 U-100 Insulin] oxycodone 5 mg PO Q6H PRN 05/25/20 05/25/20 Previous Rx's Medication Instructions Recorded blood sugar diagnostic #100 ea 05/01/20 blood-glucose meter #1 ea 05/01/20 amlodipine 5 mg PO DAILY #30 tab 05/09/20 insulin syr/ndl U100 half galen 0.3 #100 ea 05/11/20 mL 31 gauge x 11/22 pen needle, diabetic 32 gauge x #50 ea 05/22/20 Allergies Allergy/AdvReac Type Severity Reaction Status Date / Time Penicillins [PENICILLINS] Allergy Mild Rash Verified 05/24/20 19:26 Review of Systems Review of Systems: Constitutional: No Fever, No Chills ENT/Mouth: No sore throat, No Rhinorrhea, No Swallowing Difficulty Eyes: No Eye Pain, No Swelling, No Redness Cardiovascular: No Chest Pain, No SOB, No Orthopnea, No Edema Respiratory: No Cough, No Sputum, No Wheezing, No dyspnea Gastrointestinal: No Nausea, No Vomiting, No Diarrhea, No abdominal Pain, No Hematochezia, No Melena Genitourinary: No Dysuria, No Urinary Frequency, No Hematuria Musculoskeletal:+ joint pain, No Myalgias Skin: + Skin Lesions, No rash Neuro: No Weakness, + Numbness, No Dizziness, No Headache Psych: No Anxiety/Panic, No Depression Heme/Lymph: No Bruising, No Lymphadenopathy Endocrine: No Polyuria, No Polydipsia PMFSH Past Medical History Attestation statement: The following information was validated with the patient. Medical History Asthma Benign essential hypertension Diabetes Diabetes mellitus Neuropathy Obesity (BMI 30-39.9) Osteomyelitis of left foot Umbilical hernia Surgical History H/O hernia repair Status post incision and drainage Family History Family History Father Medical history unknown Mother Asthma Hypertension Diabetes Brother Chronic mental illness Social History Social History Household Members: Significant Other Housing: Apartment Alcohol intake: never Smoking Status: Current every day smoker Tobacco Type: Cigarette Cigarettes Per Day: 10 Use of substances other than those prescribed or required for medical reasons: No Advance Directives: No Advance Directives Information Provided: No service: No Current occupational status: employed Physical Exam Vital Signs: Vital Signs: Last Vital Signs Temp 99.3 F 05/25/20 23:54 Pulse 93 05/25/20 23:54 Resp 18 05/25/20 23:54 BP 185/99 H 05/25/20 23:54 Pulse Ox 98 05/25/20 23:54 Body Mass Index 37.5 Appearance: Alert. Oriented X3. No acute distress. Eyes: Pupils equal, round and reactive to light. ENT: Pharynx normal. Neck: Normal inspection. Neck supple. CVS: Normal heart rate and rhythm. Pulses normal. Respiratory: No respiratory distress. Breath sounds normal. Abdomen: Obese, Soft and nontender. +BS x4 Skin: Skin warm and dry. Normal skin color. Normal skin turgor. No rashes. Extremities: Left foot warm with discolored toes. Great toe with [place]/blue discoloration. plantar aspect with ulceration and yellow drainage. Neuro: Oriented X 3. No motor deficit. + sensory deficit to left foot and toes. Course Course Course Narrative: 49 y/o male with known osteomyelitis of the left foot s/p IV abx with continued signs of infection and worsening skin changes. He left AMA prior to debridement. He stopped antibiotics yesterday. Tmx 100.2 here. Will give IV vanco and cefepime for broad coverage. Cultures and lactic drawn. Will require admission. Patient agreeable to admission. Reevaluation(s) Reevaluation #1: Spoke with hospitalist who will admit the patient and discuss case with Surgery tomorrow morning. MDM - Wound/Laceration Lab Data Result diagrams: 05/25/20 21:23 05/25/20 21:23 Labs: Lab Results 05/25/20 05/25/20 05/25/20 Range/Units 21:23 21:23 21:23 WBC 5.7 (4.8-10.8) X10*3/uL RBC 3.74 L (4.60-5.80) X10*6/uL Hgb 9.6 L (14.0-18.0) g/dl Hct 31.6 L (42-52) % MCV 84.5 (80-98) fL MCH 25.7 L (27.0-33.0) pg MCHC 30.4 L (31.0-36.0) g/dl RDW 12.7 (11.0-16.0) % Plt Count 339 (160-400) X10*3/uL MPV 10.3 (9.4-12.4) fL Immature Gran % (Auto) 0.4 (0.0-0.4) % Neut % (Auto) 51.9 (45-73) % Lymph % (Auto) 26.1 (20-40) % [place] % (Auto) 15.9 H (2-11) % Eos % (Auto) 5.5 H (0-4) % Baso % (Auto) 0.2 (0-2) % Lymph # (Auto) 1.5 (1.2-4.9) X10*3/uL [place] # (Auto) 0.9 (0.1-1.2) X10*3/uL Eos # (Auto) 0.3 (0.0-0.4) X10*3/uL Baso # (Auto) 0.0 (0.0-0.2) X10*3/uL Abs Immat Gran (auto) 0.02 (0.00-0.03) X10*3/uL Absolute Neuts (auto) 3.0 (2.0-8.3) X10*3/uL Absolute Nucleated RBC 0.000 (0.0-0.012) X10*3/uL Nucleated RBC % (auto) 0.0 (0.0-0.2) /100WBC PT 12.4 (10.8-13.0) SEC INR 1.0 (0.9-1.1) APTT 40.8 H (24.1-38.0) SEC Sodium 137 (135-145) mmol/L Potassium 4.4 (3.3-5.1) mmol/l Chloride 98 (96-108) mmol/L Carbon Dioxide 30 H (22-29) mmol/L Anion Gap 13 (12-20) BUN 18 H (9-16) mg/dL Creatinine 1.06 (0.5-1.4) mg/dL Estim Creat Clear Calc 99.2 Estimated GFR > 60 Random Glucose 340 H D (60-115) mg/dL Lactic Acid (0.5-2.0) mmol/L Calcium 8.1 L (8.4-10.2) mg/dL Total Bilirubin 0.3 (0.0-1.0) mg/dL Direct Bilirubin < 0.2 (0.0-0.5) mg/dL AST 12 D (5-37) U/L ALT 14 (0-40) U/L Alkaline Phosphatase 103 (39-117) U/L Total Protein 6.4 L (6.5-8.0) g/dL Albumin 3.0 L (3.5-5.0) g/dL Urine Color Urine Appearance Urine pH (5.0-8.0) Ur Specific [place] (1.005-1.025) Urine Protein (NEG-TRACE) MG/DL Urine Glucose (UA) (NEG) MG/DL Urine Ketones (NEG) MG/DL Urine Blood (NEG) Urine Nitrite (NEG) Ur Leukocyte Esterase (NEG) Urine RBC (0) /HPF Urine WBC (0-4) /HPF Ur Squamous Epith Cells /LPF Urine Bacteria /LPF Hyaline Casts /LPF Urine Mucus /LPF Urine Yeast /HPF COVID-19 ([facility]) (Negative) COVID-19 Clin Com 05/25/20 05/25/20 05/25/20 Range/Units 21:23 21:23 21:30 WBC (4.8-10.8) X10*3/uL RBC (4.60-5.80) X10*6/uL Hgb (14.0-18.0) g/dl Hct (42-52) % MCV (80-98) fL MCH (27.0-33.0) pg MCHC (31.0-36.0) g/dl RDW (11.0-16.0) % Plt Count (160-400) X10*3/uL MPV (9.4-12.4) fL Immature Gran % (Auto) (0.0-0.4) % Neut % (Auto) (45-73) % Lymph % (Auto) (20-40) % [place] % (Auto) (2-11) % Eos % (Auto) (0-4) % Baso % (Auto) (0-2) % Lymph # (Auto) (1.2-4.9) X10*3/uL [place] # (Auto) (0.1-1.2) X10*3/uL Eos # (Auto) (0.0-0.4) X10*3/uL Baso # (Auto) (0.0-0.2) X10*3/uL Abs Immat Gran (auto) (0.00-0.03) X10*3/uL Absolute Neuts (auto) (2.0-8.3) X10*3/uL Absolute Nucleated RBC (0.0-0.012) X10*3/uL Nucleated RBC % (auto) (0.0-0.2) /100WBC PT (10.8-13.0) SEC INR (0.9-1.1) APTT (24.1-38.0) SEC Sodium (135-145) mmol/L Potassium (3.3-5.1) mmol/l Chloride (96-108) mmol/L Carbon Dioxide (22-29) mmol/L Anion Gap (12-20) BUN (9-16) mg/dL Creatinine (0.5-1.4) mg/dL Estim Creat Clear Calc Estimated GFR Random Glucose (60-115) mg/dL Lactic Acid 1.8 (0.5-2.0) mmol/L Calcium (8.4-10.2) mg/dL Total Bilirubin (0.0-1.0) mg/dL Direct Bilirubin (0.0-0.5) mg/dL AST (5-37) U/L ALT (0-40) U/L Alkaline Phosphatase (39-117) U/L Total Protein (6.5-8.0) g/dL Albumin (3.5-5.0) g/dL Urine Color YELLOW Urine Appearance CLEAR Urine pH 6.0 (5.0-8.0) Ur Specific [place] 1.025 (1.005-1.025) Urine Protein 2+ H (NEG-TRACE) MG/DL Urine Glucose (UA) >=1000 H (NEG) MG/DL Urine Ketones NEG (NEG) MG/DL Urine Blood 1+ H (NEG) Urine Nitrite NEG (NEG) Ur Leukocyte Esterase NEG (NEG) Urine RBC 10-14 H (0) /HPF Urine WBC 0-2 (0-4) /HPF Ur Squamous Epith Cells TRACE /LPF Urine Bacteria NONE /LPF Hyaline Casts 0-2 /LPF Urine Mucus TRACE /LPF Urine Yeast TRACE /HPF COVID-19 ([facility]) Negative (Negative) COVID-19 Clin Com See Note Critical Care Time Critical Care Time Critical Care Time: No Discharge Plan Discharge Clinical Impression: Osteomyelitis of left foot Qualifiers: Osteomyelitis type: unspecified type Qualified Code(s): M86.9 - Osteomyelitis, unspecified Patient Disposition: Admitted As Inpatient
[2020-05-25 21:25] VITALS: BP 146/83; PULSE 94; RESP 18; TEMP 37.2; O2SAT 98
[2020-05-25 21:37] LABS: MANUAL DIFF FLAG NO
[2020-05-25 21:47] LABS: Basophils Percent Auto 0.2 % (0-2); Eosinophils Absolute Auto 0.3 X10*3/uL (0.0-0.4); Eosinophils Percent Auto 5.5 % (0-4); Hematocrit 31.6 % (42-52); Hemoglobin 9.6 g/dl (14.0-18.0); Imm Gran Abs Auto 0.02 X10*3/uL (0.00-0.03); Imm Gran Pct Auto 0.4 % (0.0-0.4); Lymphocytes Absolute Auto 1.5 X10*3/uL (1.2-4.9); Lymphocytes Percent Auto 26.1 % (20-40); Mean Corpuscular HGB Conc 30.4 g/dl (31.0-36.0); Mean Corpuscular Hemoglobin 25.7 pg (27.0-33.0); Mean Corpuscular Volume 84.5 fL (80-98); Mean Platelet Volume 10.3 fL (9.4-12.4); Monocytes Absolute Auto 0.9 X10*3/uL (0.1-1.2); Monocytes Percent Auto 15.9 % (2-11); Neutrophils Percent Auto 51.9 % (45-73); Platelet Count 339 X10*3/uL (160-400); Red Blood Count 3.74 X10*6/uL (4.60-5.80); Red Cell Distribution Width 12.7 % (11.0-16.0); White Blood Count 5.7 X10*3/uL (4.8-10.8)
[2020-05-25 21:49] LABS: Appearance Urine CLEAR; Color Urine YELLOW; Glucose Urine UA >=1000 MG/DL (NEG); Leukocyte Esterase Urine NEG (NEG); Nitrite Urine NEG (NEG); Specific Gravity - Urine 1.025 (1.005-1.025); Urine Blood 1+ (NEG); Urine Ketones NEG (NEG); Urine Protein 2+ MG/DL (NEG-TRACE)
[2020-05-25 21:59] VITALS: BP 158/102; PULSE 96; RESP 16; TEMP 37.9; O2SAT 95
[2020-05-25 21:59] LABS: Lactic Acid 1.8 mmol/L (0.5-2.0)
[2020-05-25 22:04] LABS: COVID-19 Test Negative (Negative); IDNOW Serial# 9DD0AD1C
[2020-05-25 22:07] LABS: Alanine Aminotransferase 14 U/L (0-40); Alkaline Phosphatase 103 U/L (39-117); Anion Gap 13 (12-20); Aspartate Amino Transferase 12 U/L (5-37); Bilirubin Direct < 0.2 mg/dL (0.0-0.5); Bilirubin Total 0.3 mg/dL (0.0-1.0); Blood Urea Nitrogen 18 mg/dL (9-16); Calcium 8.1 mg/dL (8.4-10.2); Carbon Dioxide 30 mmol/L (22-29); Chloride 98 mmol/L (96-108); Creatinine Clr Calc Pharmacy 99.2; Estimated Glomerular Filt Rate > 60; Glucose Random 340 mg/dL (60-115); Potassium 4.4 mmol/l (3.3-5.1); Sodium 137 mmol/L (135-145); Total Protein 6.4 g/dL (6.5-8.0)
[2020-05-25 22:13] LABS: Hyaline Casts Urine 0-2 /LPF; Mucus Urine TRACE /LPF; Squamous Epithelial Cell Urine TRACE /LPF; WBC Urine 0-2 /HPF (0-4)
[2020-05-25] MEDS: Acetaminophen 325 MG TABLET 650 MG PO (22:35)
[2020-05-25] MEDS: cefEPime HCl 2 GM in 0.9 % Sodium Chloride 50 ML IV (22:35)
--- NOTE | 2020-05-25 22:44 | PC.NURSE ---
Pt medicated with Tylenol and Cefepime. BCX and lactic previously obtained.
[2020-05-25 22:51] LABS: Prothrombin Time 12.4 SEC (10.8-13.0)
[2020-05-25 22:53] LABS: Partial Thromboplastin Time 40.8 SEC (24.1-38.0)
[2020-05-25 23:54] VITALS: BP 185/99; PULSE 93; RESP 18; TEMP 37.4; O2SAT 98
[2020-05-26] VITALS (10 sets, daily range): BP systolic 138–195; BP diastolic 67–99; PULSE 82–96; RESP 16–20; TEMP 36.2–37.3; O2SAT 97–100; BMI 37.5
--- NOTE | 2020-05-26 03:03 | PM.IMHP ---
History of Present Illness Date of Service: 05/26/20 Chief Complaint: left foot infection 49 y/o male who presented from home due to worsening left foot ulcer. Patient is known to us, recently admitted to our facility due to diabetic foot ulcer/ OMrequiring IV antbx and surgical debridement. Patient left AMA 4 days ago and debridement was not performed. Patient reports that just finished a 6 week course of Vanco with Picline at home for previous cultures positive for Enterococcus, Staph, and GBS. On presentation patient mild temp of 100.2, no evidence of leukocytosis on blood work. Given presentation patient was given one dose of Vanco and Cefepime per ED and decision for admission was given. Patient seen and examined at the bedside, laying down in bed in no acute distress. Left foot with underlying diabetic ulcer, malodorous, no evidence of discharge. PMHX: 1. Diabetes mellitus. 2. Smoker. 3. Obesity. 4. Diabetic foot wound. 5. Neuropathy. 6. Umbilical hernia. 7. Asthma. PAST SURGICAL HISTORY: None other than foot wound debridement. SOCIAL HISTORY: Denies any alcohol, tobacco, or illicit drug use. ALLERGIES: ALLERGIES TO PENICILLIN. Review of Systems Musculoskeletal: Musculoskeletal: Reports other (left foot pain ) [facility] Medical History Asthma Benign essential hypertension Diabetes Diabetes mellitus Neuropathy Obesity (BMI 30-39.9) Osteomyelitis of left foot Umbilical hernia Functional capacity: independent ambulation Family History Father Medical history unknown Mother Asthma Hypertension Diabetes Brother Chronic mental illness Surgical History H/O hernia repair Status post incision and drainage Social History Household Members: Significant Other Housing: Apartment Alcohol intake: never Smoking Status: Current every day smoker Tobacco Type: Cigarette Cigarettes Per Day: 10 Use of substances other than those prescribed or required for medical reasons: No Advance Directives: No Advance Directives Information Provided: No service: No Current occupational status: employed Meds Allergies Allergy/AdvReac Type Severity Reaction Status Date / Time Penicillins [PENICILLINS] Allergy Mild Rash Verified 05/24/20 19:26 Home Medications Medication Instructions Recorded Confirmed Type albuterol sulfate 2 puff INHALATION Q4H PRN 05/21/20 05/25/20 History insulin glargine [Basaglar KwikPen 20 unit SUBCUT BEDTIME 05/21/20 05/25/20 History U-100 Insulin] oxycodone 5 mg PO Q6H PRN 05/25/20 05/25/20 History Physical Exam Vital Signs and Narrative: Vital Signs: Last Vital Signs Temp 99.3 F 05/25/20 23:54 Pulse 93 05/25/20 23:54 Resp 18 05/26/20 01:46 BP 185/99 H 05/25/20 23:54 Pulse Ox 98 05/25/20 23:54 Body Mass Index 37.5 Const: General: cooperative, comfortable and no acute distress Orientation/consciousness: patient oriented x3 HENMT: Head: Yes normal to inspection Eyes: General: appearance normal, both eyes and all related structures Neck: Yes normal visual inspection Chest: Chest palpation & inspection: normal inspection of the chest Resp: Effort & Inspection: normal respiratory effort Cardio: Jugular venous distension: no JVD Rate: regular rate Rhythm: regular rhythm Heart sounds: S1 normal heart sound present and S2 normal heart sound present GI: Inspection: Yes normal to inspection Skin: General skin exam: other (left foot diabetic ulcer ) Neuro: General: patient oriented x3 Motor exam (neuro): 5/5 motor strength present throughout Results Labs CBC and Chem 7: 05/25/20 21:23 05/25/20 21:23 Labs: Laboratory Results - last 24 hr 05/25/20 05/25/20 05/25/20 21:23 21:23 21:23 MCV 84.5 MCH 25.7 L MCHC 30.4 L RDW 12.7 Plt Count 339 MPV 10.3 Immature Gran % (Auto) 0.4 Neut % (Auto) 51.9 Lymph % (Auto) 26.1 [place] % (Auto) 15.9 H Eos % (Auto) 5.5 H Baso % (Auto) 0.2 Lymph # (Auto) 1.5 [place] # (Auto) 0.9 Eos # (Auto) 0.3 Baso # (Auto) 0.0 Abs Immat Gran (auto) 0.02 Absolute Neuts (auto) 3.0 Absolute Nucleated RBC 0.000 Nucleated RBC % (auto) 0.0 PT 12.4 INR 1.0 APTT 40.8 H Anion Gap 13 Estim Creat Clear Calc 99.2 Estimated GFR > 60 Random Glucose 340 H D Lactic Acid Calcium 8.1 L Total Bilirubin 0.3 Direct Bilirubin < 0.2 AST 12 D ALT 14 Alkaline Phosphatase 103 Total Protein 6.4 L Albumin 3.0 L Urine Color Urine Appearance Urine pH Ur Specific [place] Urine Protein Urine Glucose (UA) Urine Ketones Urine Blood Urine Nitrite Ur Leukocyte Esterase Urine RBC Urine WBC Ur Squamous Epith Cells Urine Bacteria Hyaline Casts Urine Mucus Urine Yeast COVID-19 ([facility]) COVID-19 Clin Com 05/25/20 05/25/20 05/25/20 21:23 21:23 21:30 MCV MCH MCHC RDW Plt Count MPV Immature Gran % (Auto) Neut % (Auto) Lymph % (Auto) [place] % (Auto) Eos % (Auto) Baso % (Auto) Lymph # (Auto) [place] # (Auto) Eos # (Auto) Baso # (Auto) Abs Immat Gran (auto) Absolute Neuts (auto) Absolute Nucleated RBC Nucleated RBC % (auto) PT INR APTT Anion Gap Estim Creat Clear Calc Estimated GFR Random Glucose Lactic Acid 1.8 Calcium Total Bilirubin Direct Bilirubin AST ALT Alkaline Phosphatase Total Protein Albumin Urine Color YELLOW Urine Appearance CLEAR Urine pH 6.0 Ur Specific [place] 1.025 Urine Protein 2+ H Urine Glucose (UA) >=1000 H Urine Ketones NEG Urine Blood 1+ H Urine Nitrite NEG Ur Leukocyte Esterase NEG Urine RBC 10-14 H Urine WBC 0-2 Ur Squamous Epith Cells TRACE Urine Bacteria NONE Hyaline Casts 0-2 Urine Mucus TRACE Urine Yeast TRACE COVID-19 ([facility]) Negative COVID-19 Clin Com See Note Assessment and Plan (1) Osteomyelitis of left foot: Qualifiers: Osteomyelitis type: unspecified type Qualified Code(s): M86.9 - Osteomyelitis, unspecified Status: Acute s/p one dose of Vanco and Cefepime in the Ed per ED attending continue with Vancomycin for gram positive coverage/MRSA per previous cultures Follow up Bcx obained in the ED Gereral surgery for debridement Wound care (2) Diabetes mellitus: Qualifiers: Diabetes mellitus type: type 2 Diabetes mellitus nursing home insulin use: with long term care administrator use Diabetes mellitus complication status: with skin complications Diabetes mellitus complication detail: with foot ulcer Qualified Code(s): E11.621 - Type 2 diabetes mellitus with foot ulcer; L97.509 - Non-pressure chronic ulcer of other part of unspecified foot with unspecified severity; Z79.4 - long-term (current) use of insulin Status: Acute Insulin regimen as ordered (3) Benign essential hypertension: Status: Acute not well controlled likely secondary to underlying pain Continue with home BP meds
[2020-05-26] MEDS: amLODIPine Besylate 5 MG TABLET PO ×2 (03:40→07:58)
[2020-05-26] MEDS: Heparin Sodium,Porcine 5,000 UNIT/ML VIAL 5000 UNIT SUBCUT ×3 (04:58→20:17)
[2020-05-26 06:57] LABS: MANUAL DIFF FLAG NO
[2020-05-26 07:03] LABS: Basophils Percent Auto 0.5 % (0-2); Eosinophils Absolute Auto 0.4 X10*3/uL (0.0-0.4); Hematocrit 30.5 % (42-52); Hemoglobin 9.5 g/dl (14.0-18.0); Imm Gran Abs Auto 0.02 X10*3/uL (0.00-0.03); Imm Gran Pct Auto 0.3 % (0.0-0.4); Lymphocytes Absolute Auto 1.5 X10*3/uL (1.2-4.9); Lymphocytes Percent Auto 25.4 % (20-40); Mean Corpuscular HGB Conc 31.1 g/dl (31.0-36.0); Mean Corpuscular Hemoglobin 25.8 pg (27.0-33.0); Mean Corpuscular Volume 82.9 fL (80-98); Mean Platelet Volume 10.4 fL (9.4-12.4); Monocytes Absolute Auto 0.9 X10*3/uL (0.1-1.2); Monocytes Percent Auto 14.8 % (2-11); Neutrophils Absolute Auto 3.1 X10*3/uL (2.0-8.3); Platelet Count 341 X10*3/uL (160-400); Red Blood Count 3.68 X10*6/uL (4.60-5.80); Red Cell Distribution Width 12.6 % (11.0-16.0); White Blood Count 5.9 X10*3/uL (4.8-10.8)
[2020-05-26 07:28] LABS: Anion Gap 13 (12-20); Blood Urea Nitrogen 16 mg/dL (9-16); Carbon Dioxide 29 mmol/L (22-29); Chloride 100 mmol/L (96-108); Creatinine Clr Calc Pharmacy 110.6; Estimated Glomerular Filt Rate > 60; Glucose Random 329 mg/dL (60-115); Potassium 4.5 mmol/l (3.3-5.1); Sodium 137 mmol/L (135-145)
[2020-05-26] MEDS: Morphine Sulfate 2 MG/ML CARTRIDGE 1 MG IVPUSH (07:28)
[2020-05-26] MEDS: 0.9 % Sodium Chloride Flush 3 ML SYRINGE IVFLUSH ×2 (07:29→16:22)
[2020-05-26 08:18] LABS: Glucose, Whole Blood 338 mg/dL (60-115)
--- NOTE | 2020-05-26 11:02 | MHC.CM.ED ---
Met with pt today. Returned for treatment of foot ulceration. Pt agreeable to I&D and antibiotics. [facility] has services with drsg changes daily through [facility]. [facility] completed home IV antibiotic therapy. Explained antibiotic tx steps to this CM. Has good understanding of process. [facility] PCP Dr. Gabe Chisholm. Does not have a HCP, but would like to complete one and have his girlfriend, Marli Bolton ([phone]). Will complete today.
[2020-05-26 11:59] LABS: Glucose, Whole Blood 286 mg/dL (60-115)
[2020-05-26] MEDS: Insulin Lispro 100 UNIT/ML 3 ML VIAL SUBCUT ×3 (12:20→20:19)
--- NOTE | 2020-05-26 13:07 | PM.CNGS ---
History of Present Illness Consult details Narrative: 49M admitted again last night because of a diabetic foot. He has longstanding diabetes and I had done an I and D and debridement of a plantar abscess on the left foot last . He signed out against medical advise after that despite not completing his antibiotic course. He was readmitted the week after for drainage of the dorsal foot, and I had done I and D and debridement of an open wound on the dorsum from what seemed to be fluid tracking from the plantar aspect. He was discharged with a PICC line for IV abx. He was followed by myself and the [facility] and was noted to have worsening of the wound on the dorsum. He had been sent to the ED but he refused admission and had signed out from there. He finally was admitted last week for the same DM foot issue and I had scheduled him for debridement but he signed out AMA again after having breakfast last May.22. He came back last night to say he is ready for the debridement. He says his IV abx via the PICC line had been discontinued after the PICC line was pulled out 2 days ago. He says he does not think the open wound is worse . Review of Systems Constitutional: Constitutional: Denies chills and Denies fever(s) Cardiovascular: Cardiovascular: Denies chest pain Respiratory: Respiratory: Denies cough Gastrointestinal: Gastrointestinal: Denies abdominal pain Genitourinary: Genitourinary: Denies difficulty urinating Musculoskeletal: Musculoskeletal: Denies back pain Psychiatric: Psychiatric: Denies anxiety and Denies depression [facility] Past Medical History Medical History Asthma Benign essential hypertension Diabetes Diabetes mellitus Neuropathy Obesity (BMI 30-39.9) Osteomyelitis of left foot Umbilical hernia Functional capacity: independent ambulation Family History Family History Father Medical history unknown Mother Asthma Hypertension Diabetes Brother Chronic mental illness Surgical History Surgical History H/O hernia repair Status post incision and drainage Social History Social History Household Members: Other Housing: Apartment Do you presently have visiting nurse or other home services: Yes ([facility]) Alcohol intake: never Smoking Status: Current every day smoker Tobacco Type: Cigarette Cigarettes Per Day: 3 Smoked in Last 30 Days: Yes Patient Interested in Nicotine Replacement: No (Pt. says it doesn't help) Second Hand Smoke Exposure: Yes Use of substances other than those prescribed or required for medical reasons: No Currently Displaying Signs/Symptoms of Drug Intoxication Withdrawal: No Have you been hit, kicked, punched, or otherwise hurt by someone within the past year? If so, by whom?: No Do you feel safe in your current relationship?: Yes Is there a partner from a previous relationship who is making you feel unsafe now?: No Are you made to feel afraid or neglected: No Advance Directives: No Advance Directives Information Provided: No Do you have thoughts of harming others: None Do you have a plan to hurt others: No Plan Recently lost weight without trying: Yes service: No Current occupational status: employed Meds Allergies Allergy/AdvReac Type Severity Reaction Status Date / Time Penicillins [PENICILLINS] Allergy Mild Rash Verified 05/24/20 19:26 Home Medications Medication Instructions Recorded Confirmed Type albuterol sulfate 2 puff INHALATION Q4H PRN 05/21/20 05/25/20 History insulin glargine [Basaglar KwikPen 20 unit SUBCUT BEDTIME 05/21/20 05/25/20 History U-100 Insulin] oxycodone 5 mg PO Q6H PRN 05/25/20 05/25/20 History Physical Exam Vital Signs: Vital Signs: Last Vital Signs Temp 97.9 F 05/26/20 11:36 Pulse 96 05/26/20 11:36 Resp 18 05/26/20 11:36 BP 157/83 H 05/26/20 11:36 Pulse Ox 98 05/26/20 11:36 Body Mass Index 37.5 Const: Other: looks well, comfortable HENMT: Other: no cervical lymphadenopathy Resp: Auscultation: clear to auscultation bilaterally Cardio: Rate: regular rate GI: Palpation (GI): Soft to palpation and nontender Extrem: Other: left foot - open wound, dorsum, about 7 x 4 cm, with thick fibrinous coating, nonviable rim of tissue; big toe looks dusky Results Labs Result diagrams: 05/26/20 06:36 05/26/20 06:36 Labs: Abnormal lab results 05/25/20 05/25/20 05/25/20 Range/Units 21:23 21:23 21:23 RBC 3.74 L (4.60-5.80) X10*6/uL Hgb 9.6 L (14.0-18.0) g/dl Hct 31.6 L (42-52) % MCH 25.7 L (27.0-33.0) pg MCHC 30.4 L (31.0-36.0) g/dl [place] % (Auto) 15.9 H (2-11) % Eos % (Auto) 5.5 H (0-4) % APTT 40.8 H (24.1-38.0) SEC Carbon Dioxide 30 H (22-29) mmol/L BUN 18 H (9-16) mg/dL POC Glucose (60-115) mg/dL Random Glucose 340 H D (60-115) mg/dL Calcium 8.1 L (8.4-10.2) mg/dL Total Protein 6.4 L (6.5-8.0) g/dL Albumin 3.0 L (3.5-5.0) g/dL Urine Protein (NEG-TRACE) MG/DL Urine Glucose (UA) (NEG) MG/DL Urine Blood (NEG) Urine RBC (0) /HPF 05/25/20 05/26/20 05/26/20 Range/Units 21:30 06:36 06:36 RBC 3.68 L (4.60-5.80) X10*6/uL Hgb 9.5 L (14.0-18.0) g/dl Hct 30.5 L (42-52) % MCH 25.8 L (27.0-33.0) pg MCHC (31.0-36.0) g/dl [place] % (Auto) 14.8 H (2-11) % Eos % (Auto) 6.0 H (0-4) % APTT (24.1-38.0) SEC Carbon Dioxide (22-29) mmol/L BUN (9-16) mg/dL POC Glucose (60-115) mg/dL Random Glucose 329 H (60-115) mg/dL Calcium 8.0 L (8.4-10.2) mg/dL Total Protein (6.5-8.0) g/dL Albumin (3.5-5.0) g/dL Urine Protein 2+ H (NEG-TRACE) MG/DL Urine Glucose (UA) >=1000 H (NEG) MG/DL Urine Blood 1+ H (NEG) Urine RBC 10-14 H (0) /HPF 05/26/20 05/26/20 Range/Units 07:58 11:38 RBC (4.60-5.80) X10*6/uL Hgb (14.0-18.0) g/dl Hct (42-52) % MCH (27.0-33.0) pg MCHC (31.0-36.0) g/dl [place] % (Auto) (2-11) % Eos % (Auto) (0-4) % APTT (24.1-38.0) SEC Carbon Dioxide (22-29) mmol/L BUN (9-16) mg/dL POC Glucose 338 H 286 H (60-115) mg/dL Random Glucose (60-115) mg/dL Calcium (8.4-10.2) mg/dL Total Protein (6.5-8.0) g/dL Albumin (3.5-5.0) g/dL Urine Protein (NEG-TRACE) MG/DL Urine Glucose (UA) (NEG) MG/DL Urine Blood (NEG) Urine RBC (0) /HPF Short CBC 05/25/20 05/26/20 Range/Units 21:23 06:36 WBC 5.7 5.9 (4.8-10.8) X10*3/uL Hgb 9.6 L 9.5 L (14.0-18.0) g/dl Hct 31.6 L 30.5 L (42-52) % Plt Count 339 341 (160-400) X10*3/uL BMP 05/25/20 05/26/20 21:23 06:36 Sodium 137 137 Potassium 4.4 4.5 Chloride 98 100 Carbon Dioxide 30 H 29 BUN 18 H 16 Creatinine 1.06 0.95 Calcium 8.1 L 8.0 L Liver Function 05/25/20 Range/Units 21:23 Total Bilirubin 0.3 (0.0-1.0) mg/dL Direct Bilirubin < 0.2 (0.0-0.5) mg/dL AST 12 D (5-37) U/L ALT 14 (0-40) U/L Alkaline Phosphatase 103 (39-117) U/L Albumin 3.0 L (3.5-5.0) g/dL Urine 05/25/20 Range/Units 21:30 Urine Color YELLOW Urine Appearance CLEAR Urine pH 6.0 (5.0-8.0) Ur Specific [place] 1.025 (1.005-1.025) Urine Protein 2+ H (NEG-TRACE) MG/DL Urine Glucose (UA) >=1000 H (NEG) MG/DL All other labs normal. Assessment and Plan (1) Diabetic ulcer of foot associated with diabetes mellitus due to underlying condition, with fat layer exposed: Qualifiers: Diabetic foot ulcer location: unspecified part of foot Laterality: unspecified laterality Qualified Code(s): E08.621 - Diabetes mellitus due to underlying condition with foot ulcer; L97.502 - Non-pressure chronic ulcer of other part of unspecified foot with fat layer exposed Status: Acute He ahs a lrge open wound on the dorsum of the left foot as described above. He will need excisional debridement of the open wound in the OR. I explained to him the technique of this procedure. I reviewed the risks including but not limited to bleeding, infections, poor healing. He has given consent. His big toe is dusky as well and I explained to him that this may need to be amputation. He does not want this done at this time. He has osteomyelitis of the distal metatarsal of the 2nd toe on previous imaging. He will need to continue terminal block assembler IV abx. I have schedule him for excisional debridement in the OR tomorrow. He had been instruced on NPO orders. Procedures Abscess I/D Date of Service: 05/26/20
[2020-05-26] MEDS: oxyCODONE HCl Immed Release 5 MG TABLET PO ×2 (13:45→20:18)
--- NOTE | 2020-05-26 14:59 | P.CNID_ITS ---
History of Present Illness Data of Consult Service Date: 05/26/20 Requesting physician: Lisa Murphy Primary Care Provider: Unknown Physician HPI Reason for consult: diabetic foot infection He presents to hospital with ongoing pain and odor left foot He had been in hospital with foot infection and left May 04 with recommendation for 6 weeks IV Vancomycin to cover Group B strep,enterococcus and staph aureus He had [facility] and [facility] at home and was doing own infusion However he supposedly was not available for VNA to change dressing although he denies it and they refused to continue to go to his house to draw blood or dress his wound Patient did not want to go to Rehab so I ordered line removed as it would be risk to him to maintain without care and lab draws with Vancomycin He came into hospital last week for stay for debridement of foot and left AMA on Doxycycline I had seen him in office on 05/12 and advised him to get admitted due to worsening foot infection Review of Systems Constitutional: Constitutional: Reports no additional constitutional complaints PMFSH Past Medical History Medical History Asthma Benign essential hypertension Diabetes Diabetes mellitus Neuropathy Obesity (BMI 30-39.9) Osteomyelitis of left foot Umbilical hernia Functional capacity: independent ambulation Family History Family History Father Medical history unknown Mother Asthma Hypertension Diabetes Brother Chronic mental illness Surgical History Surgical History H/O hernia repair Status post incision and drainage Social History Social History Household Members: Other Housing: Apartment Do you presently have visiting nurse or other home services: Yes ([facility]) Alcohol intake: never Smoking Status: Current every day smoker Tobacco Type: Cigarette Cigarettes Per Day: 3 Smoked in Last 30 Days: Yes Patient Interested in Nicotine Replacement: No (Pt. says it doesn't help) Second Hand Smoke Exposure: Yes Use of substances other than those prescribed or required for medical reasons: No Currently Displaying Signs/Symptoms of Drug Intoxication Withdrawal: No Have you been hit, kicked, punched, or otherwise hurt by someone within the past year? If so, by whom?: No Do you feel safe in your current relationship?: Yes Is there a partner from a previous relationship who is making you feel unsafe now?: No Are you made to feel afraid or neglected: No Advance Directives: No Advance Directives Information Provided: No Do you have thoughts of harming others: None Do you have a plan to hurt others: No Plan Recently lost weight without trying: Yes service: No Current occupational status: employed Meds Allergies Allergy/AdvReac Type Severity Reaction Status Date / Time Penicillins [PENICILLINS] Allergy Mild Rash Verified 05/24/20 19:26 Home Medications Medication Instructions Recorded Confirmed Type albuterol sulfate 2 puff INHALATION Q4H PRN 05/21/20 05/25/20 History insulin glargine [Basaglar KwikPen 20 unit SUBCUT BEDTIME 05/21/20 05/25/20 History U-100 Insulin] oxycodone 5 mg PO Q6H PRN 05/25/20 05/25/20 History Physical Exam Vital Signs: Vital Signs: Last Vital Signs Temp 97.9 F 05/26/20 11:36 Pulse 96 05/26/20 11:36 Resp 18 05/26/20 11:36 BP 157/83 H 05/26/20 11:36 Pulse Ox 98 05/26/20 11:36 Body Mass Index 37.5 Const: General: cooperative HENMT: Head: Yes normal to inspection Ears: hearing grossly normal bilaterally Mouth: Normal oral and palatal mucosa present Eyes: General: appearance normal, both eyes and all related structures Resp: Effort & Inspection: normal respiratory effort Cardio: Rate: regular rate Rhythm: regular rhythm GI: Inspection: Yes normal to inspection Palpation (GI): nontender : General: Yes no CVA tenderness Back/Spine/Pelvis: Back: no CVA tenderness Skin: General skin exam: no rashes or lesions noted Neuro: Other: neuropathy feet Assessment and Plan (1) Osteomyelitis of left foot: Qualifiers: Osteomyelitis type: unspecified type Qualified Code(s): M86.9 - Osteomyelitis, unspecified Problem details: He has completed only 1/6 weeks IV Vancomycin but I did see him in office and foot did look worse Surgical intervention is most likely to be helpful Status: Acute Continue current antibiotics Would involve Surgery or Vascular bone debridement ?amputation Would not give IV Vancomycin at home,he has no VNA backup and likely not be beneficial without surgical debridement (2) Diabetes mellitus: Qualifiers: Diabetes mellitus type: type 2 Diabetes mellitus superintendent marine oil terminal insulin use: with superintendent marine oil terminal use Diabetes mellitus complication status: with skin complications Diabetes mellitus complication detail: with foot ulcer Qualified Code(s): E11.621 - Type 2 diabetes mellitus with foot ulcer; L97.509 - Non- pressure chronic ulcer of other part of unspecified foot with unspecified severity; Z79.4 - correction (current) use of insulin Status: Acute Results Labs CBC & Chem 7: 05/26/20 06:36 05/26/20 06:36 Labs: Short CBC 05/25/20 05/26/20 Range/Units 21:23 06:36 WBC 5.7 5.9 (4.8-10.8) X10*3/uL Hgb 9.6 L 9.5 L (14.0-18.0) g/dl Hct 31.6 L 30.5 L (42-52) % Plt Count 339 341 (160-400) X10*3/uL BMP 05/25/20 05/26/20 21:23 06:36 Sodium 137 137 Potassium 4.4 4.5 Chloride 98 100 Carbon Dioxide 30 H 29 BUN 18 H 16 Creatinine 1.06 0.95 Calcium 8.1 L 8.0 L Liver Function 05/25/20 Range/Units 21:23 Total Bilirubin 0.3 (0.0-1.0) mg/dL Direct Bilirubin < 0.2 (0.0-0.5) mg/dL AST 12 D (5-37) U/L ALT 14 (0-40) U/L Alkaline Phosphatase 103 (39-117) U/L Albumin 3.0 L (3.5-5.0) g/dL Urine 05/25/20 Range/Units 21:30 Urine Color YELLOW Urine Appearance CLEAR Urine pH 6.0 (5.0-8.0) Ur Specific [place] 1.025 (1.005-1.025) Urine Protein 2+ H (NEG-TRACE) MG/DL Urine Glucose (UA) >=1000 H (NEG) MG/DL
--- NOTE | 2020-05-26 15:26 | PM.EVENT ---
Event Note Date of Service: 05/27/20 Event Note: hospital with ongoing pain and odor left foot He had been in hospital with foot infection and left May 04 with recommendation for 6 weeks IV Vancomycin to cover Group B strep,enterococcus and staph aureus. noncomplaint Physical exam: Cvs: rrr, [id number] , no murmur res: clear to auscultation ,no rhonchii or wheezing abd: no rebound or guarding ,nt, bs present. ext : ? left foot toe area seems mostly dry , no significant discharge or flacutation. neuro: axo3 , nonfocal. Assessment and plan coordinated in H&P note Will continue IV antibiotic Vanco/cefepime added, Vanco trough Id evaluation noted Surgery is planning the procedure for tomorrow debridement bui.
[2020-05-26 16:49] LABS: Glucose, Whole Blood 196 mg/dL (60-115)
[2020-05-26] MEDS: cefEPime HCl 2 GM in 0.9 % Sodium Chloride 50 ML IV (17:26)
[2020-05-26 20:13] LABS: Glucose, Whole Blood 236 mg/dL (60-115)
[2020-05-26 21:53] LABS: Vancomycin Trough 13.3 mcg/mL (10.0-20.0)
[2020-05-27] VITALS (17 sets, daily range): BP systolic 120–167; BP diastolic 68–91; PULSE 78–102; RESP 16–32; TEMP 36.1–36.9; O2SAT 93–100
[2020-05-27] MEDS: 0.9 % Sodium Chloride Flush 3 ML SYRINGE IVFLUSH ×2 (00:26→09:11)
[2020-05-27] MEDS: oxyCODONE HCl Immed Release 5 MG TABLET PO ×3 (01:55→13:59)
[2020-05-27] MEDS: cefEPime HCl 2 GM in 0.9 % Sodium Chloride 50 ML IV ×3 (01:57→17:03)
[2020-05-27] MEDS: Heparin Sodium,Porcine 5,000 UNIT/ML VIAL 5000 UNIT SUBCUT ×2 (04:47→22:37)
[2020-05-27 07:31] LABS: Anion Gap 12 (12-20); Blood Urea Nitrogen 15 mg/dL (9-16); Carbon Dioxide 30 mmol/L (22-29); Chloride 98 mmol/L (96-108); Creatinine Clr Calc Pharmacy 109.5; Estimated Glomerular Filt Rate > 60; Glucose Random 176 mg/dL (60-115); Potassium 4.3 mmol/l (3.3-5.1); Sodium 136 mmol/L (135-145)
[2020-05-27 08:18] LABS: Glucose, Whole Blood 209 mg/dL (60-115)
[2020-05-27] MEDS: amLODIPine Besylate 5 MG TABLET PO (09:09)
--- NOTE | 2020-05-27 11:16 | PM.EVENT ---
Event Note Date of Service: 05/27/20 Event Note: Patient seen and examined earlier this morning Left big toe appears dusky Explained to him that in addition to debridement of the wound on the left foot, we may need to amputate this big toe. By doing so we will have to leave an open wound as there is already a big skin defect around this He does not want to proceed with amputation of the big toe. He he agrees to the debridement. He says he will decide on the amputation of the big toe down the line. He understands that this is likely not going to be viable the way it looks at this time
--- NOTE | 2020-05-27 11:42 | MHC.SHP ---
Pre-Procedural Eval Section B Chief Complaint: left foot infection Allergies: Allergies Allergy/AdvReac Type Severity Reaction Status Date / Time Penicillins [PENICILLINS] Allergy Mild Rash Verified 05/24/20 19:26 Plan Patient has been examined and remains a candidate for the planned procedure
[2020-05-27 11:43] LABS: Glucose, Whole Blood 180 mg/dL (60-115)
--- NOTE | 2020-05-27 12:07 | P.PNIM_ITS ---
Subjective Subjective Date of Service: 05/27/20 Interval History: dm foot infection. Review of Systems Foot area looks similar to yesterday, still has pain, no visible gross discharge, going for possible debridement. Denies any chest pain or shortness of breath or abdominal pain or fever or chills or urinary complaints. Physical Exam Vital Signs: Vital Signs: Last Vital Signs Temp 97.8 F 05/27/20 11:08 Pulse 78 05/27/20 11:08 Resp 19 05/27/20 11:08 BP 120/90 H 05/27/20 11:08 Pulse Ox 97 05/27/20 11:08 Body Mass Index 37.5 Physical exam: Heent: eye anicteric , no discharge. Cvs: rrr, [id number] , no murmur res: clear to auscultation ,no rhonchii or wheezing abd: no rebound or guarding ,nt, bs present. ext : ? left foot toe area seems mostly dry , no significant discharge or flacutation. neuro: axo3 , nonfocal. Not on Objective Data Current Medications Generic Name Dose Route Start Last Admin Trade Name Freq PRN Reason Stop Dose Admin Amlodipine Besylate 5 mg 05/26/20 09:00 05/27/20 09:09 Amlodipine Besylate 5 Mg Tablet PO 5 mg DAILY SUPRIYA Administration Protocol Docusate Sodium 100 mg 05/26/20 13:04 Docusate Sodium 100 Mg Capsule PO BID PRN Constipation Heparin Sodium (Porcine) 5,000 unit 05/26/20 05:00 05/27/20 04:47 Heparin Sodium,Porcine 5,000 Unit/Ml Vial SUBCUT 5,000 unit Q8H SUPRIYA Administration Vancomycin HCl 1,500 mg/ 280 mls @ 186.667 mls/hr 05/26/20 12:00 05/27/20 02:01 Sodium Chloride IV Infused Q12H SUPRIYA Infusion Cefazolin Sodium/Dextrose 2 gm in 50 mls @ 100 mls/hr 05/27/20 12:58 Ancef IV 05/27/20 13:27 PREOP ONE Cefepime HCl 2 gm/ Sodium 50 mls @ 100 mls/hr 05/26/20 18:00 05/27/20 09:45 Chloride IV Infused Q8H SUPRIYA Infusion Insulin Human Lispro 0 unit 05/26/20 11:30 05/27/20 09:18 Insulin Lispro 100 Unit/Ml 3 Ml Vial SUBCUT Not Given QIDACHS [facility] Protocol Oxycodone HCl 5 mg 05/26/20 13:04 05/27/20 09:09 Oxycodone Hcl Immed Release 5 Mg Tablet PO 5 mg Q6H PRN Administration Moderate Pain (Scale Score 5-6) Pharmacy Consult 1 each 05/25/20 20:55 Consult Rx Perform Med Rec MISCELLANE ONCE PRN Consult order Sodium Chloride 3 ml 05/26/20 08:00 05/27/20 09:11 0.9 % Sodium Chloride Flush 3 Ml Syringe IVFLUSH 3 ml QSHIFT [facility] Administration Labs CBC & Chem 7: 05/26/20 06:36 05/27/20 06:05 Microbiology Microbiology Results: Microbiology 05/25/20 22:24 Blood - Venous Blood Culture - Preliminary No growth after 24 hours. 05/25/20 22:24 Blood - Venous Blood Culture - Preliminary No growth after 24 hours. Assessment and Plan (1) Osteomyelitis of left foot: Status: Acute Assessment and Plan: 1. dm foot infection:gbs , staph aureus, enterococcus: noncompaint, signed ama in the past also has picc line during last few visit continue vanco/cefepime , vanco trough 11.4 Going for debridement today. 2. Diabetes mellitus.fs in range 180-230 Continue fingerstick with coverage. 3.Asthma: continue albuterol. 4. Obesity: Encouraged to lose weight.
--- NOTE | 2020-05-27 12:10 | HO.ANESPROP2 ---
[facility] Past Medical History Medical History Asthma Benign essential hypertension Diabetes Diabetes mellitus Neuropathy Obesity (BMI 30-39.9) Osteomyelitis of left foot Umbilical hernia Functional capacity: independent ambulation Family History Family History Father Medical history unknown Mother Asthma Hypertension Diabetes Brother Chronic mental illness Surgical History Surgical History H/O hernia repair Status post incision and drainage Social History Social History Household Members: Other Housing: Apartment Do you presently have visiting nurse or other home services: Yes ([facility]) Alcohol intake: never Smoking Status: Current every day smoker Tobacco Type: Cigarette Cigarettes Per Day: 3 Smoked in Last 30 Days: Yes Patient Interested in Nicotine Replacement: No (Pt. says it doesn't help) Second Hand Smoke Exposure: Yes Use of substances other than those prescribed or required for medical reasons: No Currently Displaying Signs/Symptoms of Drug Intoxication Withdrawal: No Have you been hit, kicked, punched, or otherwise hurt by someone within the past year? If so, by whom?: No Do you feel safe in your current relationship?: Yes Is there a partner from a previous relationship who is making you feel unsafe now?: No Are you made to feel afraid or neglected: No Advance Directives: No Advance Directives Information Provided: No Do you have thoughts of harming others: None Do you have a plan to hurt others: No Plan Recently lost weight without trying: Yes service: No Current occupational status: employed Meds Allergies Allergy/AdvReac Type Severity Reaction Status Date / Time Penicillins [PENICILLINS] Allergy Mild Rash Verified 05/24/20 19:26 Home Medications Medication Instructions Recorded Confirmed Type albuterol sulfate 2 puff INHALATION Q4H PRN 05/21/20 05/25/20 History insulin glargine [Basaglar KwikPen 20 unit SUBCUT BEDTIME 05/21/20 05/25/20 History U-100 Insulin] oxycodone 5 mg PO Q6H PRN 05/25/20 05/25/20 History Exam Exam Date and Time: May 27, 2020 1210 Height,Weight and Vital Signs: Height 5 ft 7 in Weight 108.862 kg Last Vital Signs Temp 97.8 F 05/27/20 11:08 Pulse 78 05/27/20 11:08 Resp 19 05/27/20 11:08 BP 120/90 H 05/27/20 11:08 Pulse Ox 97 05/27/20 11:08 Pertinent Lab Results Pertinent Lab Results: Laboratory Tests 05/25/20 05/25/20 05/25/20 21:23 21:23 21:23 WBC 5.7 RBC 3.74 L Hgb 9.6 L Hct 31.6 L MCV 84.5 MCH 25.7 L MCHC 30.4 L RDW 12.7 Plt Count 339 MPV 10.3 Immature Gran % (Auto) 0.4 Neut % (Auto) 51.9 Lymph % (Auto) 26.1 Woodson % (Auto) 15.9 H Eos % (Auto) 5.5 H Baso % (Auto) 0.2 Lymph # (Auto) 1.5 Woodson # (Auto) 0.9 Eos # (Auto) 0.3 Baso # (Auto) 0.0 Abs Immat Gran (auto) 0.02 Absolute Neuts (auto) 3.0 Absolute Nucleated RBC 0.000 Nucleated RBC % (auto) 0.0 PT 12.4 INR 1.0 APTT 40.8 H Sodium 137 Potassium 4.4 Chloride 98 Carbon Dioxide 30 H Anion Gap 13 BUN 18 H Creatinine 1.06 Estim Creat Clear Calc 99.2 Estimated GFR > 60 POC Glucose Random Glucose 340 H D Lactic Acid Calcium 8.1 L Total Bilirubin 0.3 Direct Bilirubin < 0.2 AST 12 D ALT 14 Alkaline Phosphatase 103 Total Protein 6.4 L Albumin 3.0 L Urine Color Urine Appearance Urine pH Ur Specific [place] Urine Protein Urine Glucose (UA) Urine Ketones Urine Blood Urine Nitrite Ur Leukocyte Esterase Urine RBC Urine WBC Ur Squamous Epith Cells Urine Bacteria Hyaline Casts Urine Mucus Urine Yeast Vancomycin Trough COVID-19 ([facility]URT) COVID-19 Clin Com 05/25/20 05/25/20 05/25/20 21:23 21:23 21:30 WBC RBC Hgb Hct MCV MCH MCHC RDW Plt Count MPV Immature Gran % (Auto) Neut % (Auto) Lymph % (Auto) Woodson % (Auto) Eos % (Auto) Baso % (Auto) Lymph # (Auto) Woodson # (Auto) Eos # (Auto) Baso # (Auto) Abs Immat Gran (auto) Absolute Neuts (auto) Absolute Nucleated RBC Nucleated RBC % (auto) PT INR APTT Sodium Potassium Chloride Carbon Dioxide Anion Gap BUN Creatinine Estim Creat Clear Calc Estimated GFR POC Glucose Random Glucose Lactic Acid 1.8 Calcium Total Bilirubin Direct Bilirubin AST ALT Alkaline Phosphatase Total Protein Albumin Urine Color YELLOW Urine Appearance CLEAR Urine pH 6.0 Ur Specific [place] 1.025 Urine Protein 2+ H Urine Glucose (UA) >=1000 H Urine Ketones NEG Urine Blood 1+ H Urine Nitrite NEG Ur Leukocyte Esterase NEG Urine RBC 10-14 H Urine WBC 0-2 Ur Squamous Epith Cells TRACE Urine Bacteria NONE Hyaline Casts 0-2 Urine Mucus TRACE Urine Yeast TRACE Vancomycin Trough COVID-19 ([facility]T) Negative COVID-19 [employer] See Note 05/26/20 05/26/20 05/26/20 06:36 06:36 07:58 WBC 5.9 RBC 3.68 L Hgb 9.5 L Hct 30.5 L MCV 82.9 MCH 25.8 L MCHC 31.1 RDW 12.6 Plt Count 341 MPV 10.4 Immature Gran % (Auto) 0.3 Neut % (Auto) 53.0 Lymph % (Auto) 25.4 Woodson % (Auto) 14.8 H Eos % (Auto) 6.0 H Baso % (Auto) 0.5 Lymph # (Auto) 1.5 Woodson # (Auto) 0.9 Eos # (Auto) 0.4 Baso # (Auto) 0.0 Abs Immat Gran (auto) 0.02 Absolute Neuts (auto) 3.1 Absolute Nucleated RBC 0.000 Nucleated RBC % (auto) 0.0 PT INR APTT Sodium 137 Potassium 4.5 Chloride 100 Carbon Dioxide 29 Anion Gap 13 BUN 16 Creatinine 0.95 Estim Creat Clear Calc 110.6 Estimated GFR > 60 POC Glucose 338 H Random Glucose 329 H Lactic Acid Calcium 8.0 L Total Bilirubin Direct Bilirubin AST ALT Alkaline Phosphatase Total Protein Albumin Urine Color Urine Appearance Urine pH Ur Specific [place] Urine Protein Urine Glucose (UA) Urine Ketones Urine Blood Urine Nitrite Ur Leukocyte Esterase Urine RBC Urine WBC Ur Squamous Epith Cells Urine Bacteria Hyaline Casts Urine Mucus Urine Yeast Vancomycin Trough COVID-19 ([facility]) COVID-19 [employer] Com 05/26/20 05/26/20 05/26/20 11:38 16:42 20:07 WBC RBC Hgb Hct MCV MCH MCHC RDW Plt Count MPV Immature Gran % (Auto) Neut % (Auto) Lymph % (Auto) Woodson % (Auto) Eos % (Auto) Baso % (Auto) Lymph # (Auto) Woodson # (Auto) Eos # (Auto) Baso # (Auto) Abs Immat Gran (auto) Absolute Neuts (auto) Absolute Nucleated RBC Nucleated RBC % (auto) PT INR APTT Sodium Potassium Chloride Carbon Dioxide Anion Gap BUN Creatinine Estim Creat Clear Calc Estimated GFR POC Glucose 286 H 196 H 236 H Random Glucose Lactic Acid Calcium Total Bilirubin Direct Bilirubin AST ALT Alkaline Phosphatase Total Protein Albumin Urine Color Urine Appearance Urine pH Ur Specific [place] Urine Protein Urine Glucose (UA) Urine Ketones Urine Blood Urine Nitrite Ur Leukocyte Esterase Urine RBC Urine WBC Ur Squamous Epith Cells Urine Bacteria Hyaline Casts Urine Mucus Urine Yeast Vancomycin Trough COVID-19 ([facility]) [facility] 05/26/20 05/27/20 05/27/20 21:00 06:05 07:29 WBC RBC Hgb Hct MCV MCH MCHC RDW Plt Count MPV Immature Gran % (Auto) Neut % (Auto) Lymph % (Auto) Woodson % (Auto) Eos % (Auto) Baso % (Auto) Lymph # (Auto) Woodson # (Auto) Eos # (Auto) Baso # (Auto) Abs Immat Gran (auto) Absolute Neuts (auto) Absolute Nucleated RBC Nucleated RBC % (auto) PT INR APTT Sodium 136 Potassium 4.3 Chloride 98 Carbon Dioxide 30 H Anion Gap 12 BUN 15 Creatinine 0.96 Estim Creat Clear Calc 109.5 Estimated GFR > 60 POC Glucose 209 H Random Glucose 176 H D Lactic Acid Calcium 8.0 L Total Bilirubin Direct Bilirubin AST ALT Alkaline Phosphatase Total Protein Albumin Urine Color Urine Appearance Urine pH Ur Specific [place] Urine Protein Urine Glucose (UA) Urine Ketones Urine Blood Urine Nitrite Ur Leukocyte Esterase Urine RBC Urine WBC Ur Squamous Epith Cells Urine Bacteria Hyaline Casts Urine Mucus Urine Yeast Vancomycin Trough 13.3 COVID-19 ([facility]) COVID-19 [employer] Com 05/27/20 11:16 WBC RBC Hgb Hct MCV MCH MCHC RDW Plt Count MPV Immature Gran % (Auto) Neut % (Auto) Lymph % (Auto) Woodson % (Auto) Eos % (Auto) Baso % (Auto) Lymph # (Auto) Woodson # (Auto) Eos # (Auto) Baso # (Auto) Abs Immat Gran (auto) Absolute Neuts (auto) Absolute Nucleated RBC Nucleated RBC % (auto) PT INR APTT Sodium Potassium Chloride Carbon Dioxide Anion Gap BUN Creatinine Estim Creat Clear Calc Estimated GFR POC Glucose 180 H Random Glucose Lactic Acid Calcium Total Bilirubin Direct Bilirubin AST ALT Alkaline Phosphatase Total Protein Albumin Urine Color Urine Appearance Urine pH Ur Specific [place] Urine Protein Urine Glucose (UA) Urine Ketones Urine Blood Urine Nitrite Ur Leukocyte Esterase Urine RBC Urine WBC Ur Squamous Epith Cells Urine Bacteria Hyaline Casts Urine Mucus Urine Yeast Vancomycin Trough COVID-19 ([facility]) COVID-19 Clin Com Airway Mallampati Class: III TM Dist: >3cm Neck ROM: Full Loose/Missing/Broken Teeth: Yes, Upper and Lower Heart: RRR Lungs: slight exp wheeze throughout Assessment and Plan Assessment Anesthesia Assessment: Anesthesia Plan Discussed and Chart Reviewed Final Anesthetic Review NPO: Yes ASA Class: III Final Preanesthetic Review: Meds/Allgs Chart Reviewed, Consent Obtained/Reviewed and Anes Risks/Benef Reviewed Patient Risk: Intermediate Procedure Risk: Low Anesthetic Plan Anesthetic Plan: GA Disposition: Standard PACU
[2020-05-27 12:12] LABS: Vancomycin Trough 11.4 mcg/mL (10.0-20.0)
--- NOTE | 2020-05-27 12:30 | MHC.CM.PN ---
Met with patient. Scheduled for debridement today. Possible amputation may be necessary. Possible meterman IV therapy. Dr. Murphy spoke with patient. Agreeable to SNF for meterman antibiotics and PICC line if necessary. Referrals made to [facility] and [facility]. Will follow for discharge needs.
[2020-05-27] MEDS: Lactated Ringers 1,000 ML 50 ML IVCONT (12:44)
[2020-05-27] MEDS: ceFAZolin Sodium/Dextrose,Iso 2 GM/50 ML PIGGYBACK IV (12:45)
--- NOTE | 2020-05-27 13:36 | PM.OP ---
Brief Operative Note Date of Service: 05/27/20 Pre-op diagnosis: Dm foot left with necrotic margins and subq layer Post-op diagnosis: same Procedure: excisional debridement left foot wood Surgeon: Guido Keane MD Anesthesia: GLMA Estimated blood loss (mL): 10 Pathology: other (cultures, necrotic tissue) Condition: stable Disposition: PACU
[2020-05-27] MEDS: fentaNYL citrate/PF 100 MCG/2 ML VIAL 50 MCG IVPUSH ×2 (13:58→14:03)
[2020-05-27] MEDS: Acetaminophen 325 MG TABLET 650 MG PO (13:59)
--- NOTE | 2020-05-27 14:18 | OP_ITS ---
SURGEON: Guido Keane MD INDICATIONS: The patient is a 49-year-old male with longstanding diabetes, who has had a plantar abscess in the past and with subsequent tracking of the infection into the dorsum. He had undergone I and D of plantar abscess last month and I had to do debridement of an open wound on the dorsum. However, he had signed out against medical advice multiple times even after being seen in the office for followup. He had been to the emergency room as well, but had signed out from there. He had eventually came back to the hospital and this time agreed to stay for debridement. He understood technique of the procedure. He is aware of the risks, benefits, and alternatives. Examination preoperatively showed a large open wound on the dorsum of the foot with necrotic soft tissue as well as thick fibrinous exudates. There was an open wound on the plantar aspect, which seems to be healing, but with some fibrinous exudates as well. The left big toe was dark and ischemic looking, but he had insisted that we do not do an amputation at this time. He was aware that it was unlikely that the left big toe will remain viable, but he says that he was not mentally ready to have an amputation. PREOPERATIVE DIAGNOSIS: Diabetic foot, right foot with necrotic wound. POSTOPERATIVE DIAGNOSIS: PROCEDURE PERFORMED: Extensive excisional debridement of the diabetic foot, right foot. ESTIMATED BLOOD LOSS: COMPLICATIONS: ANESTHESIA: ASSISTANTS: SPECIMENS: POSTOPERATIVE DIAGNOSES: Diabetic foot, right foot with necrotic wound with open wound on both the plantar aspect and the dorsal aspect, and necrotic margins and soft tissue, exposed tendons on the dorsum, chance of ischemia of the left big toe as well. DESCRIPTION OF PROCEDURE: He was brought to the operating room, placed supine on the table with the left leg. He was placed under general anesthesia via laryngeal mask airway. The entire left foot was prepped and draped in usual sterile fashion. A surgical time-out was done. The patient had received cefazolin for prophylaxis. Again, there was note of necrotic soft tissue on the base of the open wound of the dorsum along with nonviable margins. I did sharp excisional debridement using curved Turcios scissors to excise as much of the nonviable tissue as possible. The tendons were exposed and we attempted to save this as best as we can on the dorsum. We proceeded to continue to debride all the way down in the interspace of the 1st and 2nd toe. Again, there was note of thick fibrinous and soupy debris in this area. Cultures were done as well. Examination with the index finger showed that this open wound seemed to track through the interdigital space all the way to the plantar aspect. I therefore had to open up for the previous I and D site of the plantar aspect using Turcios scissors. I had to do further debridement on the plantar area because of the presence of some fibrinous debris, although this was mostly granulating well. I had to make sure that there were no other pockets in the plantar aspect. Once this was ensured, proceeded to then complete the debridement as best as we can. I copiously irrigated the dorsal wound and the plantar wound with a pulse staff developer. Again, the left big toe appeared to be ischemic and to my opinion, this was unlikely to be viable down the line. I packed the plantar area as well as part of the dorsal wound with iodoform 1 inch as well as wet-to-dry dressings. The open wound on the dorsal aspect was about 10 cm in widest diameter by about 5 cm. After thick dressings were placed, I wrapped the entire foot with Kerlix roll. The procedure was then completed. The patient tolerated the procedure well. There were no complications noted. Initial and final counts of sponges and instruments were correct. Estimated blood loss was about 10 mL. The patient was extubated and transferred to recovery room with stable vital signs. MD DONNA Winslow/AARON / [id number]
--- NOTE | 2020-05-27 15:55 | PM.EVENT ---
Event Note Date of Service: 05/27/20 Event Note: Patient seen postop Underwent extensive debridement of the left foot earlier today Seems to have good pain control Dressings dry Keep left foot elevated on pillow Will change dressings tomorrow
--- NOTE | 2020-05-27 16:13 | MHC.CM.PN ---
[facility] and [facility] unable to accept pt. Waiting to hear from [facility]. Gillian GRIMESA are of patient admission and probable SNF referral if penitentiary antibiotics. Will follow patient at home.
[2020-05-27 16:29] LABS: Glucose, Whole Blood 213 mg/dL (60-115)
[2020-05-27] MEDS: Insulin Lispro 100 UNIT/ML 3 ML VIAL SUBCUT ×2 (17:03→22:36)
[2020-05-27] MEDS: Morphine Sulfate 4 MG/ML CARTRIDGE 3 MG IVPUSH ×2 (17:41→22:35)
[2020-05-27 20:54] LABS: Glucose, Whole Blood 270 mg/dL (60-115)
[2020-05-28] VITALS (8 sets, daily range): BP systolic 120–138; BP diastolic 65–86; PULSE 81–89; RESP 18–20; TEMP 36.4–37.2; O2SAT 94–97
[2020-05-28] MEDS: cefEPime HCl 2 GM in 0.9 % Sodium Chloride 50 ML IV ×3 (02:56→17:14)
[2020-05-28] MEDS: oxyCODONE HCl Immed Release 5 MG TABLET PO ×4 (02:57→23:49)
[2020-05-28] MEDS: Heparin Sodium,Porcine 5,000 UNIT/ML VIAL 5000 UNIT SUBCUT ×3 (05:26→20:50)
[2020-05-28 07:28] LABS: Anion Gap 10 (12-20); Blood Urea Nitrogen 16 mg/dL (9-16); Calcium 8.2 mg/dL (8.4-10.2); Carbon Dioxide 33 mmol/L (22-29); Chloride 98 mmol/L (96-108); Creatinine Clr Calc Pharmacy 108.4; Estimated Glomerular Filt Rate > 60; Glucose Random 143 mg/dL (60-115); Potassium 4.3 mmol/l (3.3-5.1); Sodium 137 mmol/L (135-145)
[2020-05-28 07:39] LABS: Glucose, Whole Blood 196 mg/dL (60-115)
[2020-05-28] MEDS: Morphine Sulfate 4 MG/ML CARTRIDGE 3 MG IVPUSH ×3 (08:19→20:49)
[2020-05-28] MEDS: Insulin Lispro 100 UNIT/ML 3 ML VIAL SUBCUT ×4 (08:19→20:50)
[2020-05-28] MEDS: amLODIPine Besylate 5 MG TABLET PO (09:38)
--- NOTE | 2020-05-28 11:10 | HO.POSTANES ---
Post Anesthesia Evaluation Post Anesthesia Evaluation Vital Signs: Vital Signs Temp Pulse Resp BP Pulse Ox 05/28/20 09:41 84 120/75 05/28/20 07:31 99.0 F 89 18 120/76 96 05/28/20 03:56 98.1 F 84 20 133/86 96 05/27/20 23:32 98.2 F 78 19 139/68 96 Anesthesia: General Mental Status: Awake Pain Control: Satisfactory Nausea/Vomiting: None Hydration: Adequate Anesthesia-Related Issues: No Anes. Related Issues
[2020-05-28 11:32] LABS: Glucose, Whole Blood 248 mg/dL (60-115)
--- NOTE | 2020-05-28 11:48 | P.PNIM_ITS ---
Subjective Subjective Date of Service: 05/28/20 Interval History: dm foot infection Physical Exam Vital Signs: Vital Signs: Last Vital Signs Temp 98 F 05/28/20 11:09 Pulse 81 05/28/20 11:09 Resp 18 05/28/20 11:09 BP 123/65 05/28/20 11:09 Pulse Ox 94 05/28/20 11:09 Body Mass Index 37.5 Physical exam: Heent: eye anicteric , no discharge. Cvs: rrr, [id number] , no murmur res: clear to auscultation ,no rhonchii or wheezing abd: no rebound or guarding ,nt, bs present. ext : s/p debridement yesterday ,foot wrapped , pain seems improving neuro: axo3 , nonfocal. Not on Objective Data Current Medications Generic Name Dose Route Start Last Admin Trade Name Freq PRN Reason Stop Dose Admin Amlodipine Besylate 5 mg 05/26/20 09:00 05/28/20 09:38 Amlodipine Besylate 5 Mg Tablet PO 5 mg DAILY [facility] Administration Protocol Docusate Sodium 100 mg 05/26/20 13:04 Docusate Sodium 100 Mg Capsule PO BID PRN Constipation Heparin Sodium (Porcine) 5,000 unit 05/26/20 05:00 05/28/20 05:26 Heparin Sodium,Porcine 5,000 Unit/Ml Vial SUBCUT 5,000 unit Q8H SUPRIYA Administration Vancomycin HCl 1,500 mg/ 280 mls @ 186.667 mls/hr 05/26/20 12:00 05/28/20 02:57 Sodium Chloride IV Infused Q12H SUPRIYA Infusion Cefepime HCl 2 gm/ Sodium 50 mls @ 100 mls/hr 05/26/20 18:00 05/28/20 11:12 Chloride IV Infused Q8H SUPRIYA Infusion Insulin Human Lispro 0 unit 05/26/20 11:30 05/28/20 08:19 Insulin Lispro 100 Unit/Ml 3 Ml Vial SUBCUT 2 unit QIDACHS SUPRIAY Administration Protocol Morphine Sulfate 3 mg 05/27/20 14:57 05/28/20 08:19 Morphine Sulfate 4 Mg/Ml Cartridge IVPUSH 3 mg Q4H PRN Administration Pain, Severe (Pain Scale 7-10) Oxycodone HCl 5 mg 05/26/20 13:04 05/28/20 09:53 Oxycodone Hcl Immed Release 5 Mg Tablet PO 5 mg Q6H PRN Administration Moderate Pain (Scale Score 5-6) Labs CBC & Chem 7: 05/26/20 06:36 05/28/20 06:25 Microbiology Microbiology Results: Microbiology 05/27/20 13:08 Foot Left Gram Stain - Final 05/25/20 22:24 Blood - Venous Blood Culture - Preliminary No growth after 48 hours. 05/25/20 22:24 Blood - Venous Blood Culture - Preliminary No growth after 48 hours. Assessment and Plan (1) Osteomyelitis of left foot: Status: Acute Assessment and Plan: 1. dm foot infection:gbs , staph aureus, enterococcus: noncompaint, signed ama in the past also has picc line during last few visit Going for debridement yesterday continue vanco/cefepime , vanco trough 11.4 on 05/27. ID and surgery following. 2. Diabetes mellitus.fs in range 200-240 range Continue fingerstick with coverage. 3.Asthma: continue albuterol. 4. Obesity: Encouraged to lose weight.
--- NOTE | 2020-05-28 14:50 | P.PNGS_ITS ---
Subjective Subjective Interval history: Denies complaints He says his foot pain is well controlled States he feels well In good mood Physical Exam Vital Signs: Vital Signs: Last Vital Signs Temp 97.5 F 05/28/20 11:57 Pulse 87 05/28/20 14:22 Resp 18 05/28/20 11:09 BP 124/78 05/28/20 14:22 Pulse Ox 96 05/28/20 11:57 Body Mass Index 37.5 Const: General: comfortable and no acute distress GI: Palpation (GI): Soft to palpation and nontender Extrem: Other: Left foot - open wound on the dorsum appears mainspring barrel assembly cleaner, no foul- smelling odor, good granulation tissue in the most of the base; open wound on the plantar aspect -appears clean as well, no pus The big toe on the left still looks dusky with some patchy areas of dry gangrene of the skin, no pus Progress Note: A&P Assessment and plan (1) Diabetic ulcer of foot associated with diabetes mellitus due to underlying condition, with fat layer exposed: Status: Acute Assessment and Plan: Status post excisional debridement. I have removed all his packings and his dressings. Applied fresh he had a from packings to areas of both the plantar wound as well as the dorsal wound. Wet to dry dressings were also applied on the granulation tissue. I covered the foot with dry gauze and a Kerlix roll. He will continue to need IV antibiotics. He will require intensive wound care with frequent dressing changes as above. He is still hopeful that we will be able to save his big toe. Currently there are areas with patchy dry gangrene. I told him that I am not optimistic about being to salvage this big toe but he will try our best with good wound care. Fall Risk Details Current Medications: Current Medications Generic Name Dose Route Start Last Admin Trade Name Freq PRN Reason Stop Dose Admin Amlodipine Besylate 5 mg 05/26/20 09:00 05/28/20 09:38 Amlodipine Besylate 5 Mg Tablet PO 5 mg DAILY SUPRIYA Administration Protocol Docusate Sodium 100 mg 05/26/20 13:04 Docusate Sodium 100 Mg Capsule PO BID PRN Constipation Heparin Sodium (Porcine) 5,000 unit 05/26/20 05:00 05/28/20 14:10 Heparin Sodium,Porcine 5,000 Unit/Ml Vial SUBCUT 5,000 unit Q8H SUPRIYA Administration Vancomycin HCl 1,500 mg/ 280 mls @ 186.667 mls/hr 05/26/20 12:00 05/28/20 12:03 Sodium Chloride IV 186.6 mls/hr Q12H SUPRIYA Administration Cefepime HCl 2 gm/ Sodium 50 mls @ 100 mls/hr 05/26/20 18:00 05/28/20 11:12 Chloride IV Infused Q8H SUPRIYA Infusion Insulin Human Lispro 0 unit 05/26/20 11:30 05/28/20 12:03 Insulin Lispro 100 Unit/Ml 3 Ml Vial SUBCUT 4 unit QIDACHS SUPRIYA Administration Protocol Morphine Sulfate 3 mg 05/27/20 14:57 05/28/20 14:25 Morphine Sulfate 4 Mg/Ml Cartridge IVPUSH 3 mg Q4H PRN Administration Pain, Severe (Pain Scale 7-10) Oxycodone HCl 5 mg 05/26/20 13:04 05/28/20 09:53 Oxycodone Hcl Immed Release 5 Mg Tablet PO 5 mg Q6H PRN Administration Moderate Pain (Scale Score 5-6) Time Spent With Patient Time: Total time spent is greater than 50% in coordination of care (as documented) at patient's floor/unit and/or counseling patient: Time with patient: 15 - 24 minutes Procedures Abscess I/D Date of Service: 05/28/20
--- NOTE | 2020-05-28 15:40 | MHC.CM.PN ---
Met with patient this am. Awaiting drsg change by Dr. Keane. Pt hopeful that debridement will fix foot ulcer and that he will not need an amputation of his great toe or more. Pt informed that [facility] is following him for possible referral to SNF for senior care IV therapy. Pt expresses concerns that IV antibiotics did not work last time and is hesitant to go to SNF. States we are trying to keep him from his family . He is insistent that he was compliant in past with PICC and antibiotics at home. has concerns that he was non-compliant and feels SNF is only way to insure that he gets the appropriate antibiotic therapy. Re-enforced seriousness of his foot ulceration and possibility of amputation if not cared for properly. Pt states he will think about SNF, but really wants to go home. Will continue to follow for D/C needs.
[2020-05-28 16:43] LABS: Glucose, Whole Blood 250 mg/dL (60-115)
[2020-05-28 20:47] LABS: Glucose, Whole Blood 237 mg/dL (60-115)
[2020-05-29 00:07] LABS: Vancomycin Trough 16.1 mcg/mL (10.0-20.0)
[2020-05-29] MEDS: cefEPime HCl 2 GM in 0.9 % Sodium Chloride 50 ML IV ×2 (02:08→11:00)
[2020-05-29 03:44] VITALS: BP 148/82; PULSE 88; RESP 20; TEMP 36.7; O2SAT 97
[2020-05-29] MEDS: Heparin Sodium,Porcine 5,000 UNIT/ML VIAL 5000 UNIT SUBCUT ×2 (04:25→13:21)
[2020-05-29] MEDS: oxyCODONE HCl Immed Release 5 MG TABLET PO ×2 (04:25→11:00)
[2020-05-29 06:48] LABS: Anion Gap 12 (12-20); Blood Urea Nitrogen 20 mg/dL (9-16); Carbon Dioxide 30 mmol/L (22-29); Chloride 100 mmol/L (96-108); Creatinine Clr Calc Pharmacy 100.1; Estimated Glomerular Filt Rate > 60; Glucose Random 247 mg/dL (60-115); Potassium 4.5 mmol/l (3.3-5.1); Sodium 137 mmol/L (135-145)
[2020-05-29 07:17] VITALS: BP 126/78; PULSE 85; RESP 19; TEMP 36.9; O2SAT 97
[2020-05-29 08:14] LABS: Glucose, Whole Blood 272 mg/dL (60-115)
[2020-05-29 08:19] VITALS: BP 126/78; PULSE 85
[2020-05-29] MEDS: amLODIPine Besylate 5 MG TABLET PO (08:19)
[2020-05-29] MEDS: Insulin Lispro 100 UNIT/ML 3 ML VIAL SUBCUT ×2 (08:19→12:00)
[2020-05-29 11:16] LABS: Glucose, Whole Blood 250 mg/dL (60-115)
[2020-05-29 11:39] VITALS: BP 138/80; PULSE 88; RESP 17; TEMP 36.4; O2SAT 98
--- NOTE | 2020-05-29 12:01 | MHC.CM.PN ---
Met with patient. Ambulating in room. States pain improving. Met tells me he will not go to SNF if mcc IV therapy recommended. States there is too much COVID'. Explained to patient that if IV recommended and he chooses not to go to SNF for IV therapy, he takes the risk of his wound worsening and needing possible amputation. Pt is aware of this. Is making an informed decision. Tells CM he may sign out today. Dr. Murphy alerted on conversation in N/D rounds. Awaiting wound cultures and ID to meet with patient again. Will continue to follow for discharge needs.
--- NOTE | 2020-05-29 12:16 | HO.PM.IMPN ---
Subjective Subjective Date of Service: 06/12/20 Interval History: dm foot infections. Review of Systems Patient denies any chest pain or shortness of breath or abdominal pain or fever or chills or weakness or numbness. Foot dressing change by Dr. Hiro foreman this morning, patient says the pain is minimal. Physical Exam Vital Signs: Vital Signs: Last Vital Signs Temp 97.5 F 05/29/20 11:39 Pulse 88 05/29/20 11:39 Resp 17 05/29/20 11:39 BP 138/80 05/29/20 11:39 Pulse Ox 98 05/29/20 11:39 Body Mass Index 37.5 Physical exam: Heent: neck supple eyes anicteric , no discharge. Cvs: rrr, [id number] , no murmur res: clear to auscultation ,no rhonchii or wheezing abd: no rebound or guarding ,nt, bs present. ext pulses present , no cyanosis left foot toe area : seems similar as yesterday , wrapped , no visible discharge around it. neuro: axo3 , nonfocal. Objective Data Current Medications Generic Name Dose Route Start Last Admin Trade Name Freq PRN Reason Stop Dose Admin Amlodipine Besylate 5 mg 05/26/20 09:00 05/29/20 08:19 Amlodipine Besylate 5 Mg Tablet PO 5 mg DAILY SUPRIYA Administration Protocol Docusate Sodium 100 mg 05/26/20 13:04 Docusate Sodium 100 Mg Capsule PO BID PRN Constipation Heparin Sodium (Porcine) 5,000 unit 05/26/20 05:00 05/29/20 04:25 Heparin Sodium,Porcine 5,000 Unit/Ml Vial SUBCUT 5,000 unit Q8H SUPRIYA Administration Vancomycin HCl 1,500 mg/ 280 mls @ 186.667 mls/hr 05/26/20 12:00 05/29/20 01:55 Sodium Chloride IV Infused Q12H SUPRIYA Infusion Cefepime HCl 2 gm/ Sodium 50 mls @ 100 mls/hr 05/26/20 18:00 05/29/20 11:41 Chloride IV Infused Q8H SUPRIYA Infusion Insulin Human Lispro 0 unit 05/26/20 11:30 05/29/20 12:00 Insulin Lispro 100 Unit/Ml 3 Ml Vial SUBCUT 4 unit QIDACHS SUPRIYA Administration Protocol Morphine Sulfate 3 mg 05/27/20 14:57 05/28/20 20:49 Morphine Sulfate 4 Mg/Ml Cartridge IVPUSH 3 mg Q4H PRN Administration Pain, Severe (Pain Scale 7-10) Oxycodone HCl 5 mg 05/26/20 13:04 05/29/20 11:00 Oxycodone Hcl Immed Release 5 Mg Tablet PO 5 mg Q6H PRN Administration Moderate Pain (Scale Score 5-6) Labs CBC & Chem 7: 05/26/20 06:36 05/29/20 05:56 Microbiology Microbiology Results: Microbiology 05/27/20 13:08 Foot Left Gram Stain - Final 05/27/20 13:08 Foot Left Routine Culture - Preliminary Gram negative sadiq Gram negative sadiq#2 05/25/20 22:24 Blood - Venous Blood Culture - Preliminary No growth after 48 hours. 05/25/20 22:24 Blood - Venous Blood Culture - Preliminary No growth after 48 hours. Assessment and Plan (1) Osteomyelitis of left foot: Status: Acute Assessment and Plan: 1. dm foot infection:gbs , staph aureus, enterococcus: noncompaint, signed ama in the past also has picc line during last few visit Going for debridement yesterday continue vanco/cefepime . ID and surgery following. 2. Diabetes mellitus. Continue fingerstick with coverage. 3.Asthma: continue albuterol. 4. Obesity: Encouraged to lose weight.
--- NOTE | 2020-05-29 13:36 | PM.PNGS ---
Subjective Subjective Interval history: denies complaints says he is going home today - states he needs to be back with his family Physical Exam Vital Signs: Vital Signs: Last Vital Signs Temp 97.5 F 05/29/20 11:39 Pulse 88 05/29/20 11:39 Resp 17 05/29/20 11:39 BP 138/80 05/29/20 11:39 Pulse Ox 98 05/29/20 11:39 Body Mass Index 37.5 Const: General: comfortable and no acute distress GI: Palpation (GI): Soft to palpation and nontender Extrem: Other: left foot - dorsal wound clean, good healthy granulation noted after debridement, plantar wound clean as well; left nig toe still still dusly, black patch on prox phalanx Progress Note: A&P Assessment and plan (1) Diabetic ulcer of foot associated with diabetes mellitus due to underlying condition, with fat layer exposed: Status: Acute Assessment and Plan: debrided wound looking much better - clean with good granulation, no pus L big toe however,looks ischemic, dry no pus I am not optimistic that the big toe will remain viable he says he wants to save this as best as he can, despite my opinion he wants to avoid amputation he wants to go home and be with family I have changed all dressings, applied wet to dry, wrapped foot in [facility] he has osteomyelitis of 2nd metatarsal head - he states he will stay on PO abx he promises to take care of his wound will see in office Fall Risk Details Current Medications: Current Medications Generic Name Dose Route Start Last Admin Trade Name Everardo PRN Reason Stop Dose Admin Amlodipine Besylate 5 mg 05/26/20 09:00 05/29/20 08:19 Amlodipine Besylate 5 Mg Tablet PO 5 mg DAILY SUPRIYA Administration Protocol Docusate Sodium 100 mg 05/26/20 13:04 Docusate Sodium 100 Mg Capsule PO BID PRN Constipation Heparin Sodium (Porcine) 5,000 unit 05/26/20 05:00 05/29/20 13:21 Heparin Sodium,Porcine 5,000 Unit/Ml Vial SUBCUT 5,000 unit Q8H SUPRIYA Administration Vancomycin HCl 1,500 mg/ 280 mls @ 186.667 mls/hr 05/26/20 12:00 05/29/20 13:21 Sodium Chloride IV 186.6 mls/hr Q12H SUPRIYA Administration Cefepime HCl 2 gm/ Sodium 50 mls @ 100 mls/hr 05/26/20 18:00 05/29/20 11:41 Chloride IV Infused Q8H [facility] Infusion Insulin Human Lispro 0 unit 05/26/20 11:30 05/29/20 12:00 Insulin Lispro 100 Unit/Ml 3 Ml Vial SUBCUT 4 unit QIDACHS [facility] Administration Protocol Morphine Sulfate 3 mg 05/27/20 14:57 05/28/20 20:49 Morphine Sulfate 4 Mg/Ml Cartridge IVPUSH 3 mg Q4H PRN Administration Pain, Severe (Pain Scale 7-10) Oxycodone HCl 5 mg 05/26/20 13:04 05/29/20 11:00 Oxycodone Hcl Immed Release 5 Mg Tablet PO 5 mg Q6H PRN Administration Moderate Pain (Scale Score 5-6) Time Spent With Patient Time: Total time spent is greater than 50% in coordination of care (as documented) at patient's floor/unit and/or counseling patient: Time with patient: 15 - 24 minutes Procedures Abscess I/D Date of Service: 05/29/20
--- NOTE | 2020-05-29 15:06 | P.PNID_ITS ---
Subjective Subjective Date of Service: 05/29/20 Interval History: he is anxious to leave Objective Data Labs CBC & Chem 7: 05/26/20 06:36 05/29/20 05:56 Labs: Laboratory Results - last 24 hr 05/28/20 05/28/20 05/28/20 16:40 20:32 23:17 Sodium Potassium Chloride Carbon Dioxide Anion Gap BUN Creatinine Estim Creat Clear Calc Estimated GFR POC Glucose 250 H 237 H Random Glucose Calcium Vancomycin Trough 16.1 05/29/20 05/29/20 05/29/20 05:56 07:19 11:02 Sodium 137 Potassium 4.5 Chloride 100 Carbon Dioxide 30 H Anion Gap 12 BUN 20 H Creatinine 1.05 Estim Creat Clear Calc 100.1 Estimated GFR > 60 POC Glucose 272 H 250 H Random Glucose 247 H D Calcium 8.0 L Vancomycin Trough Microbiology Microbiology Results: Microbiology 05/27/20 13:08 Foot Left Gram Stain - Final 05/27/20 13:08 Foot Left Routine Culture - Preliminary Gram negative sadiq Gram negative sadiq#2 05/25/20 22:24 Blood - Venous Blood Culture - Preliminary No growth after 48 hours. 05/25/20 22:24 Blood - Venous Blood Culture - Preliminary No growth after 48 hours. Physical Exam Vital Signs: Vital Signs: Last Vital Signs Temp 97.5 F 05/29/20 11:39 Pulse 88 05/29/20 11:39 Resp 17 05/29/20 11:39 BP 138/80 05/29/20 11:39 Pulse Ox 98 05/29/20 11:39 Body Mass Index 37.5 Const: General: cooperative HENMT: Head: Yes normal to inspection Mouth: Normal oral and palatal mucosa present Teeth and gingiva: no caries Resp: Effort & Inspection: normal respiratory effort Cardio: Rate: regular rate Rhythm: regular rhythm GI: Inspection: Yes normal to inspection Palpation (GI): Firmness to palpation present (GI) and nontender Skin: General skin exam: no rashes or lesions noted Assessment and Plan Assessment and plan (1) Osteomyelitis of left foot: Status: Acute Assessment and Plan: He has gram negative and gram positive organisms pending from foot Prior enterobacter sensitive to Levaquin Patient refuses PICC line,says not getting better on it Suggest po Levaquin and po Linezolid for 14 days if organisms sensitive (2) Diabetes mellitus: Status: Acute Time Spent With Patient Time: Total time spent is greater than 50% in coordination of care (as d ocumented) at patient's floor/unit and/or counseling patient: Time with patient: 15 - 24 minutes
--- NOTE | 2020-05-29 15:25 | PM.DS ---
DS: Providers Provider Date of admission: 05/26/20 02:51 Primary care physician: Unknown Physician Consults: 05/26/20 02:51 Consult to Infectious Diseases Routine Consulting Provider: Infectious Disease Reason for consultation: diabetic ulcer / OM Has provider been notified: No 05/26/20 03:43 Consult to General Surgery Routine Consulting Provider: [facility] Reason for consultation: dabetic ulcer / OM Has provider been notified: No 05/28/20 12:06 Consult to Infectious Diseases Routine Consulting Provider: Sol Kirkland Reason for consultation: FOOT CELLULITIS Has provider been notified: No DS: Diagnosis Discharge Diagnosis (1) Osteomyelitis of left foot: Status: Acute (2) Diabetes mellitus: Status: Acute DS: Medications Discharge Medications Home Medications: Home Medications Medication Instructions Recorded Confirmed albuterol sulfate 2 puff INHALATION Q4H PRN 05/21/20 05/25/20 insulin glargine [Basaglar KwikPen 20 unit SUBCUT BEDTIME 05/21/20 05/25/20 U-100 Insulin] oxycodone 5 mg PO Q6H PRN 05/25/20 05/25/20 Previous Rx's Medication Instructions Recorded blood sugar diagnostic #100 ea 05/01/20 blood-glucose meter #1 ea 05/01/20 amlodipine 5 mg PO DAILY #30 tab 05/09/20 insulin syr/ndl U100 half galen 0.3 #100 ea 05/11/20 mL 31 gauge x 5/16 pen needle, diabetic 32 gauge x #50 ea 05/22/20 5/32 doxycycline hyclate 100 mg capsule 100 mg PO BID 30 Days #60 cap 05/27/20 DS: Summary Hospital Course Hospital Course: 49 y/o male who presented from home due to worsening left foot ulcer. Patient is known to us, recently admitted to our facility due to diabetic foot ulcer/ OMrequiring IV antbx and surgical debridement. Patient left AMA 4 days ago and debridement was not performed. Patient reports that just finished a 6 week course of Vanco with Picline at home for previous cultures positive for Enterococcus, Staph, and GBS. On presentation patient mild temp of 100.2, no evidence of leukocytosis on blood work. Given presentation patient was given one dose of Vanco and Cefepime per ED and decision for admission was given. Patient seen and examined at the bedside, laying down in bed in no acute distress. Left foot with underlying diabetic ulcer, malodorous, no evidence of discharge. PMHX: 1. Diabetes mellitus. 2. Smoker. 3. Obesity. 4. Diabetic foot wound. 5. Neuropathy. 6. Umbilical hernia. 7. Asthma. Hospital Course problem bui section: 1. dm foot infection:gbs , staph aureus, enterococcus: noncompaint, signed ama in the past also has picc line during last few visit, admitted to hospital -started on iv vanco and cefepime- status post debridement and his foot cultures are still pending . subsequently wanted to leave against medical advice , risk of leaving against medical advice including losing a limb, endocarditis sepsis discussed with him in detail length she understand but still want to leave, advised him to take his p.o. medications antibiotic which given, also follow-up with the surgery outpatient for wound care. Told him to go to nearest emergency room for seeking attention as soon as possible for his foot but he signed against medical advice. please follow up with blood test -liver functions and cpk 1week outpatiently. Time Spent with Patient Time attestation: Total time spent providing and/or coordinating discharge services: Physical Exam Vital Signs: Vital Signs: Last Vital Signs Temp 97.5 F 05/29/20 11:39 Pulse 88 05/29/20 11:39 Resp 17 05/29/20 11:39 BP 138/80 05/29/20 11:39 Pulse Ox 98 05/29/20 11:39 Body Mass Index 37.5 DS: Data Data Completed and Pending Completed studies during hospitalization [Text1]: Pending at discharge 05/27/20 13:20 Surgical [PTH] Routine Procedures Excision of Left Foot Subcutaneous Tissue and Fascia, Open Approach (05/05/20) Extraction of Left Foot Skin, External Approach (05/05/20) Insertion of Infusion Device into Superior Vena Cava, Percutaneous Approach (05/05/20) Ultrasonography of Superior Vena Cava, Guidance (05/05/20) Labs on day of discharge: 05/25/20 20:55 Consult Rx Perform Med Rec 1 each MISCELLANE ONCE PRN 05/25/20 21:23 Basic Metabolic Panel Stat COVID-19 ID NOW ([facility]) Stat Complete Blood Count Auto Diff Stat Lactic Acid Stat Liver Panel Stat Partial Thromboplastin Time Stat Prothrombin Time INR Stat 05/25/20 22:02 Acetaminophen [Tylenol] 650 mg PO ONCE ONE 05/25/20 22:11 vancomycin HCL 1,500 mg 0.9 % Sodium Chloride [Ns] 250 ml IV ONCE 05/25/20 22:12 cefEPime HCl [Maxipime] 2 gm 0.9 % Sodium Chloride [Ns] 50 ml IV ONCE 05/25/20 22:30 cefEPime HCl [Maxipime] 2 gm IV .STK-MED ONE 05/25/20 23:30 vancomycin HCL 750 mg IV .STK-MED ONE 05/26/20 02:47 Transfer Order Routine 05/26/20 03:13 amLODIPine Besylate [Norvasc] 5 mg PO ONCE ONE 05/26/20 06:02 Morphine Sulfate 1 mg IVPUSH ONCE ONE 05/26/20 06:36 Basic Metabolic Panel Routine Complete Blood Count Auto Diff Routine 05/26/20 07:58 Glucose, Whole Blood Routine 05/26/20 08:00 0.9 % Sodium Chloride Flush [NS Flush] 3 ml IVFLUSH QSHIFT 05/26/20 Breakfast Diabetic Diet 05/26/20 11:38 Glucose, Whole Blood Routine 05/26/20 16:42 Glucose, Whole Blood Routine 05/26/20 17:19 cefEPime HCl [Maxipime] 2 gm IV .STK-MED ONE 05/26/20 20:07 Glucose, Whole Blood Routine 05/26/20 21:00 Vancomycin Trough Stat 05/27/20 01:34 cefEPime HCl [Maxipime] 2 gm IV .STK-MED ONE 05/27/20 06:05 Basic Metabolic Panel DAILY@0600 05/27/20 07:29 Glucose, Whole Blood Routine 05/27/20 08:57 cefEPime HCl [Maxipime] 2 gm IV .STK-MED ONE 05/27/20 11:16 Glucose, Whole Blood Routine 05/27/20 11:29 Vancomycin Trough Routine 05/27/20 11:50 Bupivacaine MPF 0.5 % [Sensorcaine MPF 0.5% 10 ML] 10 ml .ROUTE .STK-MED ONE 05/27/20 11:58 Midazolam HCl/PF [Versed] 2 mg .ROUTE .STK-MED ONE fentaNYL citrate/PF [Sublimaze] 50 mcg .ROUTE .STK-MED ONE propofoL [Diprivan] 200 mg IVPUSH .STK-MED ONE 05/27/20 12:37 Albuterol Sulfate [Ventolin] 1 puff INHALE .STK-MED ONE 05/27/20 12:40 ceFAZolin Sodium/Dextrose,Iso [Ancef] 2 gm in 50 ml .ROUTE As directed 05/27/20 12:41 Acetaminophen [Tylenol] 650 mg PO ONCE PRN Albuterol Sulfate (0.083%) [Ventolin (0.083%)] 2.5 mg INHALE ONCE PRN fentaNYL citrate/PF [Sublimaze] 50 mcg IVPUSH Q5M PRN oxyCODONE HCl Immed Release [Roxicodone] 5 mg PO ONCE PRN 05/27/20 12:45 Lactated Ringers [Lr] 1,000 ml IVCONT 50 mls/hr 05/27/20 12:58 ceFAZolin Sodium/Dextrose,Iso [Ancef] 2 gm in 50 ml IV PREOP 05/27/20 13:20 Surgical [PTH] Routine 05/27/20 13:37 Transfer Order Routine 05/27/20 13:53 Acetaminophen [Tylenol] 325 mg .ROUTE .STK-MED ONE fentaNYL citrate/PF [Sublimaze] 100 mcg .ROUTE .STK-MED ONE oxyCODONE HCl Immed Release [Roxicodone] 5 mg .ROUTE .STK-MED ONE 05/27/20 16:13 Glucose, Whole Blood Routine 05/27/20 16:57 cefEPime HCl [Maxipime] 2 gm IV .STK-MED ONE 05/27/20 20:50 Glucose, Whole Blood Routine 05/28/20 02:52 cefEPime HCl [Maxipime] 2 gm IV .STK-MED ONE 05/28/20 06:25 Basic Metabolic Panel DAILY@0600 05/28/20 07:01 Glucose, Whole Blood Routine 05/28/20 09:32 cefEPime HCl [Maxipime] 2 gm IV .STK-MED ONE 05/28/20 11:12 Glucose, Whole Blood Routine 05/28/20 16:40 Glucose, Whole Blood Routine 05/28/20 17:07 cefEPime HCl [Maxipime] 2 gm IV .STK-MED ONE 05/28/20 20:32 Glucose, Whole Blood Routine 05/28/20 23:17 Vancomycin Trough Stat 05/29/20 02:04 cefEPime HCl [Maxipime] 2 gm IV .STK-MED ONE 05/29/20 05:56 Basic Metabolic Panel DAILY 05/29/20 07:19 Glucose, Whole Blood Routine 05/29/20 10:57 cefEPime HCl [Maxipime] 2 gm IV .STK-MED ONE 05/29/20 11:02 Glucose, Whole Blood Routine Laboratory Last Values WBC 5.9 X10*3/uL (4.8-10.8) 05/26/20 06:36 RBC 3.68 X10*6/uL (4.60-5.80) L 05/26/20 06:36 Hgb 9.5 g/dl (14.0-18.0) L 05/26/20 06:36 Hct 30.5 % (42-52) L 05/26/20 06:36 MCV 82.9 fL (80-98) 05/26/20 06:36 MCH 25.8 pg (27.0-33.0) L 05/26/20 06:36 MCHC 31.1 g/dl (31.0-36.0) 05/26/20 06:36 RDW 12.6 % (11.0-16.0) 05/26/20 06:36 Plt Count 341 X10*3/uL (160-400) 05/26/20 06:36 MPV 10.4 fL (9.4-12.4) 05/26/20 06:36 Immature Gran % (Auto) 0.3 % (0.0-0.4) 05/26/20 06:36 Neut % (Auto) 53.0 % (45-73) 05/26/20 06:36 Lymph % (Auto) 25.4 % (20-40) 05/26/20 06:36 Nicholas % (Auto) 14.8 % (2-11) H 05/26/20 06:36 Eos % (Auto) 6.0 % (0-4) H 05/26/20 06:36 Baso % (Auto) 0.5 % (0-2) 05/26/20 06:36 Lymph # (Auto) 1.5 X10*3/uL (1.2-4.9) 05/26/20 06:36 Nicholas # (Auto) 0.9 X10*3/uL (0.1-1.2) 05/26/20 06:36 Eos # (Auto) 0.4 X10*3/uL (0.0-0.4) 05/26/20 06:36 Baso # (Auto) 0.0 X10*3/uL (0.0-0.2) 05/26/20 06:36 Abs Immat Gran (auto) 0.02 X10*3/uL (0.00-0.03) 05/26/20 06:36 Absolute Neuts (auto) 3.1 X10*3/uL (2.0-8.3) 05/26/20 06:36 Absolute Nucleated RBC 0.000 X10*3/uL (0.0-0.012) 05/26/20 06:36 Nucleated RBC % (auto) 0.0 /100WBC (0.0-0.2) 05/26/20 06:36 PT 12.4 SEC (10.8-13.0) 05/25/20 21:23 INR 1.0 (0.9-1.1) 05/25/20 21:23 APTT 40.8 SEC (24.1-38.0) H 05/25/20 21:23 Sodium 137 mmol/L (135-145) 05/29/20 05:56 Potassium 4.5 mmol/l (3.3-5.1) 05/29/20 05:56 Chloride 100 mmol/L (96-108) 05/29/20 05:56 Carbon Dioxide 30 mmol/L (22-29) H 05/29/20 05:56 Anion Gap 12 (12-20) 05/29/20 05:56 BUN 20 mg/dL (9-16) H 05/29/20 05:56 Creatinine 1.05 mg/dL (0.5-1.4) 05/29/20 05:56 Estim Creat Clear Calc 100.1 05/29/20 05:56 Estimated GFR > 60 05/29/20 05:56 POC Glucose 250 mg/dL (60-115) H 05/29/20 11:02 Random Glucose 247 mg/dL (60-115) H D 05/29/20 05:56 Lactic Acid 1.8 mmol/L (0.5-2.0) 05/25/20 21:23 Calcium 8.0 mg/dL (8.4-10.2) L 05/29/20 05:56 Total Bilirubin 0.3 mg/dL (0.0-1.0) 05/25/20 21:23 Direct Bilirubin < 0.2 mg/dL (0.0-0.5) 05/25/20 21: AST 12 U/L (5-37) D 05/25/20 21:23 ALT 14 U/L (0-40) 05/25/20 21:23 Alkaline Phosphatase 103 U/L (39-117) 05/25/20 21:23 Total Protein 6.4 g/dL (6.5-8.0) L 05/25/20 21: Albumin 3.0 g/dL (3.5-5.0) L 05/25/20 21:23 Urine Color YELLOW 05/25/20 21:30 Urine Appearance CLEAR 05/25/20 21:30 Urine pH 6.0 (5.0-8.0) 05/25/20 21:30 Ur Specific [place] 1.025 (1.005-1.025) 05/25/20 21:30 Urine Protein 2+ MG/DL (NEG-TRACE) H 05/25/20 21:30 Urine Glucose (UA) >=1000 MG/DL (NEG) H 05/25/20 21:30 Urine Ketones NEG MG/DL (NEG) 05/25/20 21:30 Urine Blood 1+ (NEG) H 05/25/20 21:30 Urine Nitrite NEG (NEG) 05/25/20 21:30 Ur Leukocyte Esterase NEG (NEG) 05/25/20 21:30 Urine RBC 10-14 /HPF (0) H 05/25/20 21:30 Urine WBC 0-2 /HPF (0-4) 05/25/20 21:30 Ur Squamous Epith Cells TRACE /LPF 05/25/20 21:30 Urine Bacteria NONE /LPF 05/25/20 21:30 Hyaline Casts 0-2 /LPF 05/25/20 21:30 Urine Mucus TRACE /LPF 05/25/20 21:30 Urine Yeast TRACE /HPF 05/25/20 21:30 Vancomycin Trough 16.1 mcg/mL (10.0-20.0) 05/28/20 23:17 COVID-19 ([facility]) Negative (Negative) 05/25/20 21:23 COVID-19 Clin Com See Note 05/25/20 21:23 Preliminary micro results at discharge 05/27/20 13:08 Routine Culture - Preliminary Foot Left Gram negative sadiq Gram negative sadiq#2 05/25/20 22:24 Blood Culture - Preliminary Blood - Venous No growth after 48 hours. 05/25/20 22:24 Blood Culture - Preliminary Blood - Venous No growth after 48 hours. Discharge Plan Discharge Patient Disposition: Left Against Medical Advice Referrals: Physician,Unknown [Primary Care Provider] - 3-5 Days (Please call your insurance and list a Primary Care Dr and then call the office to schedule a follow up appointment.) Discharge Medications: New levofloxacin 500 mg tablet 500 mg PO DAILY Qty: 21 RF: 0 linezolid [Zyvox] 600 mg tablet 600 mg PO Q12H 21 Days Qty: 42 RF: 0 Continued (DME) insulin syr/ndl U100 half galen 0.3 mL 31 gauge x 5/16 syringe See Rx Instructions .ROUTE .MEDSUPPLY Qty: 100 RF: 0 (DME) blood sugar diagnostic Strip See Rx Instructions .ROUTE .MEDSUPPLY Qty: 100 RF: 0 (DME) blood-glucose meter Kit See Rx Instructions .ROUTE .MEDSUPPLY Qty: 1 RF: 0 Basaglar KwikPen U-100 Insulin 100 unit/mL (3 mL) insulin pen 20 unit subcut BEDTIME RF: 0 albuterol sulfate 90 mcg/actuation Hfa Aerosol Inhaler 2 puff INHALATION Q4H PRN (Reason: Respiratory Distress) RF: 0 oxycodone 5 mg tablet 5 mg PO Q6H PRN (Reason: Moderate Pain (Scale Score 5-6)) RF: 0 amlodipine 5 mg Tablet 5 mg PO DAILY Qty: 30 RF: 0 (DME) pen needle, diabetic [BD Ultra-Fine Nataliya Pen Needle] 32 gauge x 5/32 needle See Rx Instructions .ROUTE .MEDSUPPLY Qty: 50 RF: 3 Discontinued doxycycline hyclate 100 mg capsule 100 mg PO BID 30 Days Qty: 60 RF: 0 Discharge Orders: Discharge Order (Routine); Ordered 05/29/20 Ordered By: Lisa Murphy Diet: advance to usual diet and diabetic diet Activity on Discharge: As tolerated Discharge Date/Time: 05/29/20 16:00 Care Plan Goals: Patient came with foot infection, status post debridement and his foot cultures are still pending but wants to leave against medical advice , risk of leaving against medical advice including losing a limb, endocarditis sepsis discussed with him in detail length she understand but still want to leave, advised him to take his p.o. medications antibiotic which given, also follow-up with the surgery outpatient for wound care. Told him to go to nearest emergency room for seeking attention as soon as possible for his foot but he signed against medical advice. PLEASE FOLLOW-UP WITH BLOOD TEST-LIVER FUNCTION TESTS AND CPK IN 1 WEEK WITH PCP OUT PATIENTLY. Health Concerns: As above. Plan of Treatment: As above.
--- NOTE | 2020-05-29 15:42 | MHC.CM.PN ---
Addendum entered by Mary Anne Chisholm 05/29/20 15:51: Pt uses [facility], not [facility]. CM called to let them know pt signed out AMA and will have to contact PCP for orders. Original Note: Pt to sign out AMA. Will take po antibiotics. Enc. pt to follow up with PCP. [facility] notified about pt signing out AMA and needing to contact PCP for orders.
--- NOTE | 2020-05-29 16:07 | PC.NURSE ---
PATIENT STATES HE WANTS TO LEAVE. PATIENT EDUCATED ON RISKS OF LEAVING. DOCTOR MARIO NOTIFIED. DR. MARTIN SPOKE TO PATIENT, PATIENT CONTINUES TO SAY HE IS LEAVING. PATIENT LEFT AMA AND SIGNED AMA PAPERWORK. IV REMOVED PRIOR TO PATIENT LEAVING.
--- NOTE | 2020-05-29 16:07 | MHC.CM.PN ---
Spoke to [facility] via telephone to inform them that this pt is signing out AMA. He has done this in the past. [facility] informed me that they will call the DrAgustina and they will not be following him as a patient.
--- NOTE | 2020-05-29 16:14 | MHC.CM.PN ---
Dr. Murphy notified that [facility] will no longer follow this patient due to non-compliance.
== END 2020-05-29 16:00 | disposition left against medical advice (07) | DRG 344 ==
LOC: HO.ED 22:45 → HO.S3 05-26 03:26
PROVIDERS: Physician Assistant; Surgery; Admitting Provider Internal Medicine; Emergency Provider Internal Medicine; Visit Provider Internal Medicine
PROC: 0JBR0ZZ Excision of Left Foot Subcutaneous Tissue and Fascia, Open Approach (ICD-10-PCS; principal; 2020-05-27 12:00)
DX: E11.69 Type 2 diabetes mellitus with other specified complication (principal); M86.9 Osteomyelitis, unspecified; E11.42 Type 2 diabetes mellitus with diabetic polyneuropathy; E11.621 Type 2 diabetes mellitus with foot ulcer; E11.52 Type 2 diabetes mellitus with diabetic peripheral angiopathy with gangrene; I10 Essential (primary) hypertension; F17.210 Nicotine dependence, cigarettes, uncomplicated; J45.909 Unspecified asthma, uncomplicated; Z20.828 Contact with and (suspected) exposure to other viral communicable diseases; Z91.19 Patient's noncompliance with other medical treatment and regimen; Z71.6 Tobacco abuse counseling; E66.9 Obesity, unspecified; Z68.37 Body mass index [BMI] 37.0-37.9, adult; L97.422 Non-pressure chronic ulcer of left heel and midfoot with fat layer exposed; Z88.0 Allergy status to penicillin; Z79.4 Long term (current) use of insulin; Z79.899 Other long term (current) drug therapy
CPT/HCPCS: 36415; 80048; 80076; 80202; 81001; 82947; 83605; 85025; 85610; 85730; 87040; 87071; 87077; 87147; 87186; 87205; 87635; 88304; 88311; 96365; 99024; 99285; J0690; J0692; J2250; J2270; J3010; J3370

== ENCOUNTER → 2020-06-11 13:22 | Outpatient (BNVA) | payer OTHER, SELFPAY | PROVIDERS: PCP Internal Medicine; Referring Provider Internal Medicine; Visit Provider Surgery | DX: I96 Gangrene, not elsewhere classified (principal); E08.621 Diabetes mellitus due to underlying condition with foot ulcer; L97.502 Non-pressure chronic ulcer of other part of unspecified foot with fat layer exposed | CPT/HCPCS: 99212 ==

== ENCOUNTER → 2020-06-19 13:22 | Outpatient (BNVA) | payer OTHER, SELFPAY | PROVIDERS: PCP Internal Medicine; Visit Provider Nurse Practitioner Gerontology | DX: E11.40 Type 2 diabetes mellitus with diabetic neuropathy, unspecified (principal); E11.65 Type 2 diabetes mellitus with hyperglycemia; Z79.4 Long term (current) use of insulin; E78.5 Hyperlipidemia, unspecified; I10 Essential (primary) hypertension; E66.9 Obesity, unspecified | CPT/HCPCS: 82947; 99212 ==

== ENCOUNTER 2020-06-22 12:53 | Emergency (ER) | payer OTHER, SELFPAY ==
[2020-06-22 13:03] VITALS: BP 143/84; PULSE 94; RESP 16; TEMP 35.6; O2SAT 99; BMI 36.8
--- NOTE | 2020-06-22 14:40 | XR_ITS ---
EXAMINATION: XR FOOT, LEFT CLINICAL INFORMATION: Bleeding left foot. COMPARISON: MRI left foot 04/22/2020, CT foot 05/05/2020 TECHNIQUE: AP, lateral, and oblique views of the left foot. FINDINGS: There is bony erosive changes involving the adjacent distal most thousand and proximal segment proximal phalanx second digit suggestive of osteomyelitis is moderate soft tissue swelling along the dorsal aspect of foot and and tenderness second digit. There is mild osteopenia throughout the the ankle mortise and subtalar joints are normal. There is dorsal distal foot soft tissue ulcer. There is a calcaneal spur. XR/XR foot LT 2V IMPRESSION: Findings strongly suspicious of osteomyelitis involving the distal second metatarsal and proximal end proximal phalanx second digit with moderate to severe soft tissue swelling involving the second digit and a large dorsal distal foot ulcer.
[2020-06-22 15:02] VITALS: BP 150/98; PULSE 95; RESP 19; TEMP 37.1; O2SAT 99
--- NOTE | 2020-06-22 15:17 | ED.GENADULT ---
HPI - General Adult General Chief complaint: Wound/Laceration Stated complaint: wound check - bleeding Time Seen by Provider: 06/22/20 14:40 Source: patient Mode of arrival: ambulatory Limitations: no limitations History of Present Illness HPI narrative: Patient presents to ED for bleeding from old wound on left foot. Patient states he might have had some trauma yesterday to foot. Patient states he might have hit it by accident. Patient has had extensive surgery on his foot by Dr. Keane and has follow-up this . Patient states no fever, chills, or pus discharge. Patient denies any pain from foot. Related Data Home Medications Medication Instructions Recorded Confirmed doxycycline hyclate 100 mg capsule 100 mg PO BID 06/19/20 06/19/20 insulin syringe-needle U-100 0.3 #10 ea 06/19/20 06/19/20 mL 31 gauge x 5/16 lancets 28 gauge #100 ea 06/19/20 06/19/20 Previous Rx's Medication Instructions Recorded blood sugar diagnostic #100 ea 05/01/20 blood-glucose meter #1 ea 05/01/20 amlodipine 5 mg PO DAILY #30 tab 05/09/20 insulin syr/ndl U100 half galen 0.3 #100 ea 05/11/20 mL 31 gauge x 5/16 pen needle, diabetic 32 gauge x #50 ea 05/22/20 levofloxacin 500 mg PO DAILY #21 tab 05/29/20 linezolid [Zyvox] 600 mg PO Q12H 21 Days #42 tab 05/29/20 albuterol sulfate 90 mcg/actuation 2 puff INHALATION Q6H PRN 30 Days 06/19/20 aerosol inhaler #8.5 g blood sugar diagnostic #75 ea 06/19/20 dulaglutide 0.75 mg/0.5 mL 0.75 mg SUBCUT QWEEK #2 ml 06/19/20 subcutaneous pen injector flash glucose scanning reader #1 ea 06/19/20 flash glucose sensor 1 ea TOPICAL Q2W #2 ea 06/19/20 insulin aspart U-100 100 unit/mL 15 unit SUBCUT TID 30 Days #15 ml 06/19/20 (3 mL) subcutaneous pen insulin glargine 100 unit/mL (3 30 unit SUBCUT BEDTIME #15 ml 06/19/20 mL) subcutaneous pen oxycodone 5 mg tablet 5 mg PO Q8H PRN 7 Days #21 tab 06/19/20 oxycodone-acetaminophen [Percocet] 1 tab PO TID PRN #9 tab 06/22/20 Allergies Allergy/AdvReac Type Severity Reaction Status Date / Time No Known Allergies Allergy Verified 06/21/20 15:20 Review of Systems Constitutional: Constitutional: Reports as per HPI and Reports no additional constitutional complaints Eyes: Eyes: Reports as per HPI and Reports no additional eye complaints ENT: Reports system reviewed and no additional complaints, except as documented and Reports as per HPI Cardiovascular: Cardiovascular: Reports as per HPI and Reports no additional cardiovascular complaints Respiratory: Respiratory: Reports as per HPI and Reports no additional respiratory complaints Gastrointestinal: Gastrointestinal: Reports as per HPI and Reports no additional gastrointestinal complaints Genitourinary: Genitourinary: Reports no additional male genitourinary complaints and Reports as per HPI Musculoskeletal: Musculoskeletal: Reports no additional musculoskeletal complaints and Reports as per HPI Comments: Chronic left foot wound Neurologic: Reports system reviewed and no additional complaints, except as documented and Reports as per HPI Psychiatric: Psychiatric: Reports no additional psychiatric complaints and Reports as per HPI PMFSH Past Medical History Medical History Asthma Benign essential hypertension Diabetes mellitus Dry gangrene Hyperlipidemia LDL goal <100 Neuropathy Obesity (BMI 30-39.9) Osteomyelitis of left foot Type 2 diabetes mellitus with diabetic neuropathy, unspecified Type 2 diabetes mellitus with hyperglycemia, with long-term current use of insulin Umbilical hernia Surgical History H/O hernia repair Status post incision and drainage Family History Family History Father Medical history unknown Mother Asthma Hypertension Diabetes Brother Chronic mental illness Diabetes Social History Social History Household Members: Other Housing: Apartment Alcohol intake: never Smoking Status: Current every day smoker Tobacco Type: Cigarette Cigarettes Per Day: 3 Second Hand Smoke Exposure: Yes Use of substances other than those prescribed or required for medical reasons: No Advance Directives: No Advance Directives Information Provided: Yes service: No Current occupational status: employed Physical Exam Vital Signs: Vital Signs: Last Vital Signs Temp 98.7 F 06/22/20 15:02 Pulse 95 06/22/20 15:02 Resp 19 06/22/20 15:02 BP 150/98 H 06/22/20 15:02 Pulse Ox 99 06/22/20 15:02 Body Mass Index 36.8 Const: General: cooperative, healthy appearing, comfortable, no acute distress, well developed, alert, awake and Physically active Orientation/consciousness: patient oriented x3 HENMT: Head: Yes normal to inspection and Yes No palpable skull fracture present Eyes: General: appearance normal, both eyes and all related structures Neck: Neck: Yes normal visual inspection and Yes full ROM Chest: Chest palpation & inspection: normal inspection of the chest, normal palpation of entire chest wall and no localized rib tenderness Resp: Effort & Inspection: normal respiratory effort and able to speak in complete sentences Auscultation: clear to auscultation bilaterally Cardio: Jugular venous distension: no JVD Heart sounds: S1 normal heart sound present and S2 normal heart sound present GI: Inspection: Yes normal to inspection and No abdominal wall ecchymosis Palpation (GI): Soft to palpation, not firm, nontender and no guarding : General: No CVA tenderness and Yes no CVA tenderness Back/Spine/Pelvis: Back: no CVA tenderness, No CVA tenderness and No back tenderness Skin: Other: Left foot wound. General skin exam: no rashes or lesions noted and elasticity normal Neuro: General: patient oriented x3, gait normal and CN's II-XI intact bilaterally Cranial nerves: Yes CN's II-XII intact bilaterally Extrem: Other: Left foot positive for 1st big toe gangrene with large wound on dorsal aspect of the foot with sero-sanguineous fluid. Negative for any active bleeding. Mild yellow discoloration of wound. Plantar ulcers healthy. Right foot is normal Psych: Appearance: grossly normal, well kempt and not disheveled Course Course Course Narrative: Plan is to do x-ray to see this possibility of osteomyelitis. Patient presently stable not any distress. Reevaluation(s) Reevaluation #1: Patient's x-ray came back positive for osteomyelitis. Labs & antibiotics ordered. Patient refused labs and IV antibiotics. Patient states the wound looks better and osteomyelitis is chronic. X-ray report today of osteomyelitis 2nd toe is similar to CT scan results of osteomyelitis on the same toe in April. Patient states he has been on IV antibiotics for many weeks and now on oral. Plan was to admit patient for, but he still insisted on refusing to be admitted. Spoke with Dr. Keane of surgery who performed the wound debridement and follows this patient, states if patient does not want to be admitted than patient can follow-up with him in the clinic. patient has appointemnt with Dr. Keane this . Patient was signed out against medical advice. Patient may known risk of sepsis, , and , severe disability. Patient already have antibiotics (doxycyline) at home. Patient was sent home with pain medication. Time: 16:33 Medical Decision Making MDM Narrative Medical decision making narrative: Osteomyelitis Discharge Plan Discharge Clinical Impression: Osteomyelitis Patient Disposition: Left Against Medical Advice Instructions: Osteomyelitis (ED) Additional Instructions: Return to the ED immediately for any fever, chills, worsening foot pain, pus discharge, foul odor, or any other concerning symptoms. Prescriptions: New oxycodone-acetaminophen [Percocet] 5-325 mg tablet 1 tab PO TID PRN (Reason: pain) Qty: 9 RF: 0 No Action (DME) insulin syr/ndl U100 half galen 0.3 mL 31 gauge x 5/16 syringe See Rx Instructions .ROUTE .MEDSUPPLY Qty: 100 RF: 0 (DME) blood sugar diagnostic Strip See Rx Instructions .ROUTE .MEDSUPPLY Qty: 100 RF: 0 (DME) blood-glucose meter Kit See Rx Instructions .ROUTE .MEDSUPPLY Qty: 1 RF: 0 levofloxacin 500 mg tablet 500 mg PO DAILY Qty: 21 RF: 0 linezolid [Zyvox] 600 mg tablet 600 mg PO Q12H 21 Days Qty: 42 RF: 0 amlodipine 5 mg Tablet 5 mg PO DAILY Qty: 30 RF: 0 (DME) pen needle, diabetic [BD Ultra-Fine Nataliya Pen Needle] 32 gauge x 5/32 needle See Rx Instructions .ROUTE .MEDSUPPLY Qty: 50 RF: 3 albuterol sulfate 90 mcg/actuation HFA aerosol inhaler 2 puff INHALATION Q6H PRN (Reason: Respiratory Distress) 30 Days Qty: 8.5 RF: 3 oxycodone 5 mg tablet 5 mg PO Q8H PRN (Reason: pain) 7 Days Qty: 21 RF: 0 doxycycline hyclate 100 mg capsule 100 mg PO BID RF: 0 (DME) insulin syringe-needle U-100 0.3 mL 31 gauge x 5/16 syringe See Rx Instructions ml .ROUTE .MEDSUPPLY Qty: 10 RF: 0 (DME) lancets 28 gauge misc See Rx Instructions gauge topical .MEDSUPPLY Qty: 100 RF: 0 Basaglar KwikPen U-100 Insulin 100 unit/mL (3 mL) insulin pen 30 unit subcut BEDTIME Qty: 15 RF: 3 insulin aspart U-100 [Novolog Flexpen U-100 Insulin] 100 unit/mL (3 mL) insulin pen 15 unit subcut TID 30 Days Qty: 15 RF: 0 Trulicity 0.75 mg/0.5 mL pen injector 0.75 mg subcut QWEEK Qty: 2 RF: 3 (DME) FreeStyle Swati 14 Day [place] Misc See Rx Instructions .ROUTE .MEDSUPPLY Qty: 1 RF: 0 FreeStyle Swati 14 Day Sensor Kit 1 ea topical Q2W Qty: 2 RF: 11 (DME) FreeStyle Precision Mushtaq Strips Strip See Rx Instructions .ROUTE .MEDSUPPLY Qty: 75 RF: 6 Referrals: Guido Keane MD [Physician] - 2 days (Left foot osteomyelitis. Patient signed out against medical advice.) Discharge Date/Time: 06/22/20 17:01 Print Language: Canadian
--- NOTE | 2020-06-22 15:59 | PC.NURSE ---
patient refuses blood work, IV and admission plan. provider aware. provider will speak with [facility]'s provider Dr. De La Cruz for f/u. patient states even if advised by dr. hernández to stay, patient refuses.
[2020-06-22] MEDS: oxyCODONE HCl Immed Release 5 MG TABLET PO (16:51)
== END 2020-06-22 17:01 | disposition left against medical advice (07) ==
PROVIDERS: Emergency Provider Emergency Medicine; PCP Internal Medicine
DX: E11.69 Type 2 diabetes mellitus with other specified complication (principal); M86.9 Osteomyelitis, unspecified; Z79.4 Long term (current) use of insulin
CPT/HCPCS: 73620; 99283; 99284

== ENCOUNTER → 2020-06-29 15:34 | Outpatient (BNVA) | payer OTHER, SELFPAY | PROVIDERS: PCP Internal Medicine; Visit Provider Surgery | DX: Z76.89 Persons encountering health services in other specified circumstances (principal) ==

== ENCOUNTER → 2020-07-07 08:37 | Outpatient (BNVA) | payer OTHER, SELFPAY | PROVIDERS: PCP Internal Medicine; Visit Provider Nurse Practitioner Gerontology | DX: Z76.89 Persons encountering health services in other specified circumstances (principal) ==

== ENCOUNTER → 2020-07-30 13:41 | Outpatient (BNVA) | payer OTHER, SELFPAY | PROVIDERS: PCP Internal Medicine; Visit Provider Surgery | DX: M86.9 Osteomyelitis, unspecified (principal) | CPT/HCPCS: 11042; 99212 ==

== ENCOUNTER 2020-08-12 09:13 | Inpatient (IN) | payer OTHER, SELFPAY ==
[2020-08-06 14:35] VITALS: BMI 37.0
[2020-08-12] VITALS (12 sets, daily range): BP systolic 129–167; BP diastolic 78–97; PULSE 72–94; RESP 16–20; TEMP 36.3–37.1; O2SAT 93–100; BMI 39.4
[2020-08-12 06:45] LABS: Glucose, Whole Blood 274 mg/dL (60-115)
[2020-08-12] MEDS: Lactated Ringers 1,000 ML 50 ML IVCONT (06:50)
--- NOTE | 2020-08-12 07:10 | P.CONAN_ITS ---
[facility] Past Medical History Medical History Asthma Benign essential hypertension Diabetes mellitus Dry gangrene Hyperlipidemia LDL goal <100 Neuropathy Obesity (BMI 30-39.9) Osteomyelitis of left foot Type 2 diabetes mellitus with diabetic neuropathy, unspecified Type 2 diabetes mellitus with hyperglycemia, with long-term current use of insulin Umbilical hernia Family History Family History Father Medical history unknown Mother Asthma Hypertension Diabetes Brother Chronic mental illness Diabetes Surgical History Surgical History H/O hernia repair Status post debridement Status post incision and drainage Status post incision and drainage Social History Social History Household Members: Other Housing: Apartment Alcohol intake: never Smoking Status: Current every day smoker Tobacco Type: Cigarette Cigarettes Per Day: 6 Years Smoked: 30 Second Hand Smoke Exposure: Yes Use of substances other than those prescribed or required for medical reasons: No Advance Directives Information Provided: No Recently lost weight without trying: No service: No Current occupational status: employed Meds Allergies Allergy/AdvReac Type Severity Reaction Status Date / Time No Known Allergies Allergy Verified 07/20/20 16:34 Home Medications Medication Instructions Recorded Confirmed Type doxycycline hyclate 100 mg capsule 100 mg PO BID 06/19/20 08/06/20 History insulin syringe-needle U-100 0.3 #10 ea 06/19/20 07/30/20 History mL 31 gauge x 5/16 lancets 28 gauge #100 ea 06/19/20 07/30/20 History Exam Exam Date and Time: August 12, 2020 0710 Height,Weight and Vital Signs: Height 5 ft 7 in Weight 107.501 kg Last Vital Signs Temp 98.0 F 08/12/20 06:35 Pulse 78 08/12/20 06:35 Resp 16 08/12/20 06:35 BP 160/96 H 08/12/20 06:35 Pulse Ox 96 08/12/20 06:35 Pertinent Lab Results Pertinent Lab Results: Laboratory Tests 08/12/20 06:39 POC Glucose 274 H Airway Mallampati Class: II TM Dist: >3cm Neck ROM: Limited Loose/Missing/Broken Teeth: Yes (Edebtulous), Upper (Endentulous) and Lower (Few teeth) Heart: RRR Lungs: scattered wheezing snd rhonchi throughout Assessment and Plan Assessment Anesthesia Assessment: Anesthesia Plan Discussed and Chart Reviewed Final Anesthetic Review NPO: Yes ASA Class: III Final Preanesthetic Review: Meds/Allgs Chart Reviewed, Consent Obtained/Reviewed and Anes Risks/Benef Reviewed Patient Risk: Intermediate Procedure Risk: Low Anesthetic Plan Anesthetic Plan: Regional Block Disposition: Standard PACU
--- NOTE | 2020-08-12 07:21 | MHC.SHP ---
Pre-Procedural Eval Section B Chief Complaint: Osteomyelitis of left foot Allergies: Allergies Allergy/AdvReac Type Severity Reaction Status Date / Time No Known Allergies Allergy Verified 07/20/20 16:34 Plan I have reviewed the history and physical and performed a pertinent physical examination on my patient. No changes have occurred unless specified.
[2020-08-12] MEDS: Albuterol Sulfate (0.083%) 2.5 MG/3 ML VIAL.NEB INHALE (07:39)
--- NOTE | 2020-08-12 08:02 | PC.NURSE ---
SCATTERED WHEEZES. UDN ORDERED BY ANESTHESIA AND GIVEN AT 740.
--- NOTE | 2020-08-12 09:18 | P.OP_ITS ---
Operative Note Operative Note Date of Service: 08/12/20 Narrative: PROCEDURE: AMPUTATION OF THE 1ST AND 2ND TOES, LEFT FOOT, INCLUDING THE METATARSAL HEAD PREOP DIAGNOSIS: OSTEOMYELITIS 2ND TOE WITH GANGRENE OF THE 1ST TOE, LEFT FOOT POSTOP DIAGNOSIS: ABOVE SURGEON: TABITHA BRAVO MD SPECIAL EDUCATION RESOURCE TEACHER: LINWOOD BASURTO GREGORY 50-year-old male, known diabetic, with poor compliance, here for amputation of 1st and 2nd toes. He has had a chronic open wound on the left foot after os teomyelitis last April,. He has had gangrene of his 1st toe as well. He had been hesitant about going for amputation and therefore been undergoing regular wound care with me in the office along with regular debridements. He eventually had decided to proceed with amputation his last visit in the office as there had been persistent drainage from the open wound along with discoloration and foul smell from the big toe. There was also an open wound on the dorsum of the foot with tunneling in the 1st and the 2nd toes with drainage. His imaging studies had shown osteomyelitis of the metatarsal head on the 2nd toe. The 1st toe also has gangrene with foul smell. He understood the technique of the procedure as well as the risks, benefits, and alternatives. His was involved with discussion. He also understood that in view of the open wound on the dorsum of the foot, there is likely not enough soft tissue to allow primary closure of the amputation site and that he will have an open wound postop. He was brought to the operating room placed supine on table. An ankle block had been done by the anesthesiologist. He was placed in monitored anesthesia care as well. I also infiltrated the of excision generously with lidocaine 1%. I made an incision on the skin the base of the 1st toe and extended this towards the dorsum into the phalangeal space between the 2nd and 3rd toe, then coming around the base of both toes on the plantar aspect. I then used electrocautery to divide across the skin in full-thickness as well as into the soft tissues. I divided the tendons as well and the rest of the soft tissue with Turcios scissors to get down to the base of the big toe as well as the 2nd toe. I continued to dissect with a combination of electrocautery as well as Turcios scissors to define the metatarsal head of both the big toe as well the 2nd toe. I then used the periosteal elevator to clear up this soft tissue surrounding both distal metatarsals. Please note that there was note of significant oozing throughout the dissection in view of the acute inflammatory process involving the soft tissues as well as significant fibrosis from the chronic inflammation. We had to periodically cauterize the soft tissues in view of persistent oozing throughout the entire procedure. Since there was fragile soft tissue holding the metatarsals to the phalanges, we proceeded to just divide the ligaments attaching the phalanges to the metatarsal initially with may scissors to allow us to separate the 1st and 2nd toes and this was sent as specimen. I then proceeded to divide the distal metatarsal head on the 2nd toe using a bone cutter. I used the bone cutter as well to resect the head of the metatarsal on the big toe. I trimmed both ends of the resected metatarsals and a rongeur. I applied bone wax after copious irrigation of the area. I cauterized all the oozing areas and hypergranulation tissue. After had achieved good hemostasis, I used thick nylon 1 0 interrupted sutures to reoppose the skin and soft tissue as best as we can, with an obvious gap as expected. I applied moist packing within the gap of the open wound. Surgicel had also been applied earlier. I then proceeded to apply thick fluffy dressings and wrapped the foot with a Johan roll and Adria bandage. Procedures in completed. The patient tolerated well. The complication noted. Initial and final counts of sponges and instruments were correct. Estimated blood loss was about 200 cc. The patient is then transferred to recovery room with stable vital signs. He will be admitted overnight and I will have the dressings changed tomorrow. We may arrange for a wound VAC once the soft tissues appear clean of infection down the line.
[2020-08-12 09:20] LABS: Glucose, Whole Blood 266 mg/dL (60-115)
--- NOTE | 2020-08-12 09:24 | PM.OP ---
Brief Operative Note Date of Service: 08/12/20 <GEORGIA Jackson Last Filed: 08/12/20 09:26> Pre-op diagnosis: osteomyelitis of left first and second toe <GEORGIA Jackson Last Filed: 08/12/20 09:26> Post-op diagnosis: same <GEORGIA Jackson Last Filed: 08/12/20 09:26> Procedure: amputation of left first and second toe <GEORGIA Jackson Last Filed: 08/12/20 09:26> Implants: None <GEORGIA Jackson Last Filed: 08/12/20 09:26> Surgeon: Guido Keane MD <GEORGIA Jackson Last Filed: 08/12/20 09:26> Anesthesia: MAC and other (ankle block) <GEORGIA Jackson Last Filed: 08/12/20 09:26> Neonatal Doctor: Aixa Navarrete <GEORGIA Jackson Last Filed: 08/12/20 09:26> Estimated blood loss (mL): 75 <GEORGIA Jackson Last Filed: 08/12/20 09:26> Pathology: other (left first and second toe) <GEORGIA Jackson Last Filed: 08/12/20 09:26> Condition: stable <GEORGIA Jackson Last Filed: 08/12/20 09:26> Disposition: PACU <GEORGIA Jackson Last Filed: 08/12/20 09:26>
[2020-08-12 10:27] LABS: COVID-19 Test Negative (Negative)
[2020-08-12] MEDS: oxyCODONE HCl Immed Release 5 MG TABLET PO ×2 (10:52→17:19)
[2020-08-12] MEDS: Acetaminophen 325 MG TABLET 650 MG PO (10:52)
[2020-08-12] MEDS: Insulin Lispro 100 UNIT/ML 3 ML VIAL SUBCUT ×3 (12:02→21:06)
[2020-08-12 12:03] LABS: Glucose, Whole Blood 250 mg/dL (60-115)
[2020-08-12] MEDS: Morphine Sulfate 4 MG/ML CARTRIDGE IVPUSH (12:03)
--- NOTE | 2020-08-12 14:45 | PM.EVENT ---
Event Note Date of Service: 08/12/20 Event Note: Seen postop He underwent amputation of the 1st and 2nd toes at the distal metatarsal, on the left foot this morning He appears comfortable Dressings are dry He will be kept overnight for wound check tomorrow with dressing change We will arrange for visiting nurse Currently has good pain control
[2020-08-12 16:52] LABS: Glucose, Whole Blood 295 mg/dL (60-115)
[2020-08-12] MEDS: 0.9 % Sodium Chloride Flush 3 ML SYRINGE IVFLUSH (17:12)
[2020-08-12 20:50] LABS: Glucose, Whole Blood 295 mg/dL (60-115)
[2020-08-12] MEDS: Insulin Glargine,Hum.rec.anlog 100 UNIT/ML 10 ML VIAL 20 UNIT SUBCUT (21:06)
[2020-08-13] MEDS: 0.9 % Sodium Chloride Flush 3 ML SYRINGE IVFLUSH ×2 (00:14→08:02)
[2020-08-13] MEDS: oxyCODONE HCl Immed Release 5 MG TABLET PO ×2 (02:25→08:00)
[2020-08-13 03:59] VITALS: BP 155/87; PULSE 86; RESP 18; TEMP 36.6; O2SAT 96
[2020-08-13 05:03] LABS: Anion Gap 13 (12-20); Blood Urea Nitrogen 18 mg/dL (9-16); Calcium 7.6 mg/dL (8.4-10.2); Carbon Dioxide 29 mmol/L (22-29); Chloride 100 mmol/L (96-108); Estimated Glomerular Filt Rate > 60; Glucose Random 279 mg/dL (60-115); Potassium 3.5 mmol/L (3.3-5.1); Sodium 138 mmol/L (135-145)
[2020-08-13 07:44] VITALS: BP 170/90; PULSE 91; RESP 19; TEMP 36.8; O2SAT 98
[2020-08-13] MEDS: Insulin Lispro 100 UNIT/ML 3 ML VIAL SUBCUT (08:00)
[2020-08-13] MEDS: amLODIPine Besylate 5 MG TABLET PO (08:00)
[2020-08-13 08:19] LABS: Glucose, Whole Blood 320 mg/dL (60-115)
--- NOTE | 2020-08-13 08:25 | PM.PNGS ---
Subjective Subjective Date of Service: 08/13/20 <Aixa Navarrete PA-C - Last Filed: 08/13/20 08:29> 08/13/20 <Guido Keane MD - Last Filed: 08/13/20 08:44> Interval history: Feels ok. Pain at amputation site but comfortable with analgesics. <Aixa Navarrete PA-C - Last Filed: 08/13/20 08:29> Physical Exam Vital Signs: Vital Signs: Last Vital Signs Temp 98.2 F 08/13/20 07:44 Pulse 91 08/13/20 07:44 Resp 19 08/13/20 07:44 BP 170/90 H 08/13/20 07:44 Pulse Ox 98 08/13/20 07:44 Body Mass Index 39.4 <Aixa Navarrete PA-C - Last Filed: 08/13/20 08:29> Const: General: comfortable, no acute distress and alert <Aixa Navarrete PA-C - Last Filed: 08/13/20 08:29> Orientation/consciousness: patient oriented x3 <Aixa Navarrete PA-C - Last Filed: 08/13/20 08:29> Resp: Effort & Inspection: normal respiratory effort <GEORGIA Jackson Last Filed: 08/13/20 08:29> Skin: Other: normal color, warm and dry <Aixa Navarrete PA-C - Last Filed: 08/13/20 08:29> Neuro: General: patient oriented x3 <Axia Navarrete PA-C - Last Filed: 08/13/20 08:29> Extrem: Other: left foot, first and second amputation site- clean, some sanguineous drainage, no necrosis, loose sutures intact, dressing changed <GEORGIA Jackson Last Filed: 08/13/20 08:29> Progress Note: A&P Assessment and plan (1) Diabetic ulcer of foot associated with diabetes mellitus due to underlying condition, with fat layer exposed: Status: Acute <GEORGIA Jackson Last Filed: 08/13/20 08:29> (2) Type 2 diabetes mellitus with hyperglycemia, with long-term current use of insulin: Status: Acute <Aixa Navarrete PA-C - Last Filed: 08/13/20 08:29> (3) Osteomyelitis of left foot: Problem details: since 04/2020-with debridements <Aixa Navarrete PA-C - Last Filed: 08/13/20 08:29> Status: Acute <Aixa Navarrete PA-C - Last Filed: 08/13/20 08:29> (4) Obesity (BMI 30-39.9): Status: Acute <Aixa Navarrete PA-C - Last Filed: 08/13/20 08:29> (5) Status post amputation of left great toe: Problem details: and second toe <Aixa Navarrete PA-C - Last Filed: 08/13/20 08:29> Status: Acute <Aixa Navarrete PA-C - Last Filed: 08/13/20 08:29> Assessment and Plan: Doing well post op, comfortable. VSS. Amputation site clean, sutures intact, dressing changed by Dr. keane. Stable for d/c to home today with VNA services with daily wet to dry dressing changes. F/u in office in one week for possible VERAFLO wound vac placement. Patient comfortable with plan. Educated no weightbearing of left forefoot. <Aixa Navarrete PA-C - Last Filed: 08/13/20 08:29> (6) Osteomyelitis of ankle or foot, acute: Status: Acute <Aixa Navarrete PA-C - Last Filed: 08/13/20 08:29> Assessment and Plan: Status post amputation of the 1st and 2nd toes on the left at the distal metatarsal Good pain control I changes dressings today -open wound clean, wet to dry applied through sutures Foot wrapped in Kerlix and Adria bandage Emphasized to patient to not put weight on the foot Visiting nurse to do daily dressing changes with wet to dry packing using normal saline Will see in the office next week for possible switched to wound VAC Emphasized importance of good blood sugar control -patient instructed to make sure he has close follow-up with PCP for this but (blood sugar this morning was 320) Patient seen and examined-agree with LINWOOD Navarrete <Guido Keane MD - Last Filed: 08/13/20 08:44> Fall Risk Details Current Medications: Current Medications Generic Name Dose Route Start Last Admin Trade Name Freq PRN Reason Stop Dose Admin Acetaminophen 650 mg 08/12/20 09:13 08/12/20 10:52 Acetaminophen 325 Mg Tablet PO 650 mg Q6H PRN Administration Pain, Mild (Pain Scale 1-3) Albuterol Sulfate 2 puff 08/12/20 09:19 Albuterol Sulfate 90 Mcg 8 Gm Inhaler INHALE Q6H PRN Respiratory Distress Amlodipine Besylate 5 mg 08/13/20 09:00 08/13/20 08:00 Amlodipine Besylate 5 Mg Tablet PO 5 mg DAILY [facility] Administration Protocol Docusate Sodium 100 mg 08/12/20 09:13 Docusate Sodium 100 Mg Capsule PO DAILY PRN Constipation Insulin Glargine 20 unit 08/12/20 21:00 08/12/20 21:06 Insulin Glargine,Hum.Rec.Anlog 100 Unit/Ml 10 Ml Vial SUBCUT 20 unit BEDTIME [facility] Administration Insulin Human Lispro 0 unit 08/12/20 11:30 08/13/20 08:00 Insulin Lispro 100 Unit/Ml 3 Ml Vial SUBCUT 8 unit QIDACHS [facility] Administration Protocol Morphine Sulfate 4 mg 08/12/20 09:20 08/12/20 12:03 Morphine Sulfate 4 Mg/Ml Cartridge IVPUSH 4 mg Q4H PRN Administration Pain, Severe (Pain Scale 7-10) Nicotine 7 mg 08/13/20 09:00 08/13/20 08:03 Nicotine 7 Mg Patch.Td24 TRANSDERMA Not Given DAILY [facility] Ondansetron HCl 4 mg 08/12/20 09:13 Ondansetron Hcl 4 Mg/2 Ml Vial IVPUSH Q8H PRN Nausea and Vomiting Oxycodone HCl 5 mg 08/12/20 09:20 08/13/20 08:00 Oxycodone Hcl Immed Release 5 Mg Tablet PO 5 mg Q4H PRN Administration Pain, Severe (Pain Scale 7-10) Sodium Chloride 3 ml 08/12/20 16:00 08/13/20 08:02 0.9 % Sodium Chloride Flush 3 Ml Syringe IVFLUSH 3 ml QSHIFT [facility] Administration <Aixa Navarrete PA-C - Last Filed: 08/13/20 08:29> Time Spent With Patient Time: Total time spent is greater than 50% in coordination of care (as documented) at patient's floor/unit and/or counseling patient: <Aixa Navarrete PA-C - Last Filed: 08/13/20 08:29> Time with patient: 15 - 24 minutes <Aixa Navarrete PA-C - Last Filed: 08/13/20 08:29>
--- NOTE | 2020-08-13 08:54 | HO.POSTANES ---
Post Anesthesia Evaluation Post Anesthesia Evaluation Vital Signs: Vital Signs Temp Pulse Resp BP Pulse Ox 08/13/20 07:44 98.2 F 91 19 170/90 H 98 08/13/20 03:59 98 F 86 18 155/87 H 96 08/12/20 23:45 98.1 F 93 20 158/82 H 93 Anesthesia: Monitored and Nerve Block (Ankle block) Mental Status: Awake Pain Control: Satisfactory Nausea/Vomiting: None Hydration: Adequate Anesthesia-Related Issues: No Anes. Related Issues
--- NOTE | 2020-08-13 09:30 | MHC.CM.PN ---
CM met with Patient at bedside. Patient lives alone in an apartment and uses a w/c to assist with mobility. Patient has been medically cleared for dc to home today, with VNA. Patient is agreeable to a referral to NA, who has been notified of today's dc.
--- NOTE | 2020-08-17 13:02 | PM.DS ---
DS: Providers Provider Date of Service: 08/17/20 Date of admission: 08/12/20 09:13 Primary care physician: Gabe Chisholm MD DS: Diagnosis Discharge Diagnosis (1) Osteomyelitis of ankle or foot, acute: Status: Acute DS: Medications Discharge Medications Home Medications: Home Medications Medication Instructions Recorded Confirmed doxycycline hyclate 100 mg capsule 100 mg PO BID 06/19/20 08/06/20 insulin syringe-needle U-100 0.3 #10 ea 06/19/20 07/30/20 mL 31 gauge x 5/16 lancets 28 gauge #100 ea 06/19/20 07/30/20 Previous Rx's Medication Instructions Recorded blood sugar diagnostic #100 ea 05/01/20 blood-glucose meter #1 ea 05/01/20 amlodipine 5 mg PO DAILY #30 tab 05/09/20 insulin syr/ndl U100 half galen 0.3 #100 ea 05/11/20 mL 31 gauge x 5/16 pen needle, diabetic 32 gauge x #50 ea 05/22/20 albuterol sulfate 90 mcg/actuation 2 puff INHALATION Q6H PRN 30 Days 06/19/20 aerosol inhaler #8.5 g blood sugar diagnostic #75 ea 06/19/20 dulaglutide 0.75 mg/0.5 mL 0.75 mg SUBCUT QWEEK #2 ml 06/19/20 subcutaneous pen injector flash glucose scanning reader #1 ea 06/19/20 flash glucose sensor 1 ea TOPICAL Q2W #2 ea 06/19/20 insulin aspart U-100 100 unit/mL 15 unit SUBCUT TID 30 Days #15 ml 06/19/20 (3 mL) subcutaneous pen insulin glargine 100 unit/mL (3 30 unit SUBCUT BEDTIME #15 ml 06/19/20 mL) subcutaneous pen sodium chloride 0.9 % irrigation 1 irrig IRRIGATION DAILY PRN #6000 07/15/20 solution ml oxycodone 5 mg tablet 5 mg PO Q4H PRN #24 tab 08/13/20 DS: Summary Hospital Course Hospital Course: BRIEF HPI:50-year-old male, known diabetic, with poor compliance, here for amputation of 1st and 2nd toes. He has had a chronic open wound on the left foot and developed osteomyelitis April,. His imaging studies had shown osteomyelitis of the metatarsal head on the 2nd toe. He had been hesitant about proceeding with amputation and therefore had been undergoing regular wound care with me in the office along with regular debridements. There had been persistent drainage from the open wound along with gangrene and a foul smell from the big toe and a draining wound on the dorsum of the foot. He eventually decided to proceed with amputation. He now presents for the procedure. HOSPITAL COURSE: On 08/12/20, amputation of the first and second toes at the distal metatarsal head of the left foot was performed by Dr. Keane without complication. The patient tolerated the procedure well and was admitted for observation post operatively. He had an uncomplicated post operative course. On POD# 1, his pain was well controlled. His amputation site was clean and dry. And wet to dry dressings were applied through sutures followed by fluffs, kerlix and maricruz wrap. He was educated not to weight bear on the left foot and emphasized importance of good blood sugar control with follow up with his PCP. He felt ready for discharge. He was discharged to home on 08/13/20 in stable condition with VNA services. He is to follow up in 1 week for wound check, possible switch to VERAFLO wound vac. Status at Discharge Functional status at discharge: independent ambulation Overall status at discharge: patient is not back to baseline Time Spent with Patient Time attestation: Total time spent providing and/or coordinating discharge services: Discharge coordination time: Greater than 30 minutes Physical Exam Vital Signs: Vital Signs: Last Vital Signs Temp 98.2 F 08/13/20 07:44 Pulse 91 08/13/20 07:44 Resp 19 08/13/20 07:44 BP 170/90 H 08/13/20 07:44 Pulse Ox 98 08/13/20 07:44 Body Mass Index 39.4 Const: General: comfortable, no acute distress and alert Nutritional Appearance: obese Orientation/consciousness: patient oriented x3 Eyes: Sclerae: sclerae normal Resp: Effort & Inspection: normal respiratory effort Cardio: Rate: regular rate Skin: Other: normal color, warm and dry Neuro: General: patient oriented x3 Extrem: Other: left first and second toe amputation site clean- no necrosis noted, loose sutures intact, no erythema or edema, some serosanguineous drainage DS: Data Data Completed and Pending Completed studies during hospitalization [Text1]: 08/12/20 08:49 Surgical [PTH] Routine Left 1st and 2nd toes, amputation: - Acute osteomyelitis; osteonecrosis. - Skin and subcutaneous tissue with gangrenous necrosis. Procedures Detachment at Left 1st Toe, Complete, Open Approach (08/12/20) Detachment at Left 2nd Toe, Complete, Open Approach (08/12/20) Excision of Left Foot Subcutaneous Tissue and Fascia, Open Approach (05/26/20) Extraction of Left Foot Skin, External Approach (05/05/20) Insertion of Infusion Device into Superior Vena Cava, Percutaneous Approach (05/05/20) Ultrasonography of Superior Vena Cava, Guidance (05/05/20) Labs on day of discharge: Laboratory Tests 08/12/20 08/12/20 08/12/20 06:39 09:16 10:05 Sodium Potassium Chloride Carbon Dioxide Anion Gap BUN Creatinine Estim Creat Clear Calc Estimated GFR POC Glucose 274 H 266 H Random Glucose Calcium COVID-19 ([facility]) Negative COVID-19 Clin Modern Message See Note 08/12/20 08/12/20 08/12/20 11:52 16:49 20:36 Sodium Potassium Chloride Carbon Dioxide Anion Gap BUN Creatinine Estim Creat Clear Calc Estimated GFR POC Glucose 250 H 295 H 295 H Random Glucose Calcium COVID-19 ([facility]) COVID-19 Clin Modern Message 08/13/20 08/13/20 04:23 07:54 Sodium 138 Potassium 3.5 Chloride 100 Carbon Dioxide 29 Anion Gap 13 BUN 18 H Creatinine 1.10 Estim Creat Clear Calc 97.0 Estimated GFR > 60 POC Glucose 320 H Random Glucose 279 H Calcium 7.6 L COVID-19 ([facility]) COVID-19 Clin Modern Message Discharge Plan Discharge Patient Disposition: Home Health Service Referrals: [facility] [Outside] Gabe Chisholm MD [Primary Care Provider] - Guido Keane MD [Physician] - 1 Week Discharge Medications: Continued (DME) insulin syr/ndl U100 half galen 0.3 mL 31 gauge x 5/16 syringe See Rx Instructions .ROUTE .MEDSUPPLY Qty: 100 RF: 0 sodium chloride [Sterile Saline] 0.9 % solution 1 irrig irrigation DAILY PRN (Reason: wound care) Qty: 6000 RF: 0 (DME) blood sugar diagnostic Strip See Rx Instructions .ROUTE .MEDSUPPLY Qty: 100 RF: 0 (DME) blood-glucose meter Kit See Rx Instructions .ROUTE .MEDSUPPLY Qty: 1 RF: 0 amlodipine 5 mg Tablet 5 mg PO DAILY Qty: 30 RF: 0 (DME) pen needle, diabetic [BD Ultra-Fine Nataliya Pen Needle] 32 gauge x 5/32 needle See Rx Instructions .ROUTE .MEDSUPPLY Qty: 50 RF: 3 albuterol sulfate 90 mcg/actuation HFA aerosol inhaler 2 puff INHALATION Q6H PRN (Reason: Respiratory Distress) 30 Days Qty: 8.5 RF: 3 doxycycline hyclate 100 mg capsule 100 mg PO BID RF: 0 (DME) insulin syringe-needle U-100 0.3 mL 31 gauge x 5/16 syringe See Rx Instructions ml .ROUTE .MEDSUPPLY Qty: 10 RF: 0 (DME) lancets 28 gauge misc See Rx Instructions gauge topical .MEDSUPPLY Qty: 100 RF: 0 Basaglar KwikPen U-100 Insulin 100 unit/mL (3 mL) insulin pen 30 unit subcut BEDTIME Qty: 15 RF: 3 insulin aspart U-100 [Novolog Flexpen U-100 Insulin] 100 unit/mL (3 mL) insulin pen 15 unit subcut TID 30 Days Qty: 15 RF: 0 Trulicity 0.75 mg/0.5 mL pen injector 0.75 mg subcut QWEEK Qty: 2 RF: 3 (DME) FreeStyle Swati 14 Day [place] Misc See Rx Instructions .ROUTE .MEDSUPPLY Qty: 1 RF: 0 FreeStyle Swati 14 Day Sensor Kit 1 ea topical Q2W Qty: 2 RF: 11 (DME) FreeStyle Precision Mushtaq Strips Strip See Rx Instructions .ROUTE .MEDSUPPLY Qty: 75 RF: 6 Discontinued oxycodone 5 mg tablet 5 mg PO Q8H PRN (Reason: pain) 7 Days Qty: 20 RF: 0 No Action oxycodone 5 mg tablet 5 mg PO Q4H PRN (Reason: pain) Qty: 24 RF: 0 Discharge Orders: Discharge Order (Routine); Ordered 08/13/20 Ordered By: Aixa Navarrete Diet: diabetic diet Activity on Discharge: See below Stand Alone Forms: Patient Portal Discharge page Activity Restrictions/Additional Instructions: WOUND CARE: Wet to dry dressings of saline soaked gauze to wound under sutures followed by dry fluffs, kerlix wrap and maricruz. Change daily and as needed. NO weight bearing L forefoot. Do not apply heat. Do not use creams, lotions, or topical antibiotics unless instructed to do so by your surgeon. These can cause infection or allergic reaction. Call Your Doctor If: -Your temperature exceeds 101.5? F -You experience excessive pain or swelling -You have an unexpected reaction to medication -You have excessive bleeding -You experience continued vomiting/nausea -Your incision shows signs of increased redness, swelling, excessive pain, drainage (light blood or clear fluid is normal) or heat Care Plan Goals: Healing of left first and second toe amputation site, wound vac placement. Health Concerns: Diabetes mellitus, osteomyelitis of left first and second toe s/p amputation Plan of Treatment: Discharge to home with VNA services for wound care, f/u in office in 1 week for possible VERAFLO wound vac placement. Discharge Date/Time: 08/13/20 11:09
== END 2020-08-13 11:09 | disposition home health service (06) | DRG 314 ==
LOC: HO.SSSA 09:26 → HO.S3 10:10
PROVIDERS: Physician Assistant Surgical; Admitting Provider Surgery; PCP Internal Medicine; Visit Provider Surgery
PROC: 0Y6Q0Z0 Detachment at Left 1st Toe, Complete, Open Approach (ICD-10-PCS; CPT 28810; principal; 2020-08-12 07:30)
DX: E11.52 Type 2 diabetes mellitus with diabetic peripheral angiopathy with gangrene (principal); E11.69 Type 2 diabetes mellitus with other specified complication; M86.9 Osteomyelitis, unspecified; Z79.4 Long term (current) use of insulin; E66.9 Obesity, unspecified; F17.210 Nicotine dependence, cigarettes, uncomplicated; Z20.822 Contact with and (suspected) exposure to COVID-19; Z68.39 Body mass index [BMI] 39.0-39.9, adult; Z79.899 Other long term (current) drug therapy
CPT/HCPCS: 28810 ×2; 36415; 80048; 82947; 87635; 88305; 88311; 94640; J0690; J2250; J2270; J3010

== ENCOUNTER → 2020-08-18 14:01 | Outpatient (BNVA) | payer OTHER, SELFPAY | PROVIDERS: PCP Internal Medicine; Visit Provider Surgery | DX: Z89.412 Acquired absence of left great toe (principal) | CPT/HCPCS: 99212 ==

== ENCOUNTER → 2020-08-27 11:47 | Outpatient (BNVA) | payer OTHER, SELFPAY | PROVIDERS: PCP Internal Medicine; Visit Provider Surgery | DX: Z89.412 Acquired absence of left great toe (principal) | CPT/HCPCS: 99212 ==

== ENCOUNTER → 2020-09-02 14:42 | Outpatient (BNVA) | payer OTHER, SELFPAY | PROVIDERS: PCP Internal Medicine; Visit Provider Surgery | DX: Z89.412 Acquired absence of left great toe (principal) | CPT/HCPCS: 99212 ==

== ENCOUNTER → 2020-09-16 13:36 | Outpatient (BNVA) | payer OTHER, SELFPAY | PROVIDERS: PCP Internal Medicine; Visit Provider Surgery | DX: Z47.81 Encounter for orthopedic aftercare following surgical amputation (principal); Z89.412 Acquired absence of left great toe | CPT/HCPCS: 99212 ==

== ENCOUNTER → 2020-10-01 13:43 | Outpatient (BNVA) | payer OTHER, SELFPAY | PROVIDERS: PCP Internal Medicine; Visit Provider Surgery | DX: Z47.81 Encounter for orthopedic aftercare following surgical amputation (principal); E08.621 Diabetes mellitus due to underlying condition with foot ulcer; L97.502 Non-pressure chronic ulcer of other part of unspecified foot with fat layer exposed | CPT/HCPCS: 99212 ==

== ENCOUNTER → 2020-10-22 10:49 | Outpatient (BNVA) | payer OTHER, SELFPAY | PROVIDERS: PCP Internal Medicine; Visit Provider Surgery | DX: M86.172 Other acute osteomyelitis, left ankle and foot (principal); Z89.412 Acquired absence of left great toe; Z89.422 Acquired absence of other left toe(s) | CPT/HCPCS: 99212 ==

== ENCOUNTER 2020-11-13 12:09 | Outpatient (REF) | payer OTHER, SELFPAY ==
[2020-11-13 13:25] LABS: MANUAL DIFF FLAG NO
[2020-11-13 13:30] LABS: Basophils Absolute Auto 0.1 X10*3/uL (0.0-0.2); Basophils Percent Auto 1.3 % (0-2); Eosinophils Absolute Auto 0.3 X10*3/uL (0.0-0.4); Hemoglobin 12.9 g/dl (14.0-18.0); Imm Gran Abs Auto 0.02 X10*3/uL (0.00-0.03); Imm Gran Pct Auto 0.5 % (0.0-0.4); Lymphocytes Absolute Auto 1.1 X10*3/uL (1.2-4.9); Lymphocytes Percent Auto 26.8 % (20-40); Mean Corpuscular HGB Conc 30.7 g/dl (31.0-36.0); Mean Corpuscular Volume 81.6 fL (80-98); Monocytes Absolute Auto 0.5 X10*3/uL (0.1-1.2); Monocytes Percent Auto 13.5 % (2-11); Neutrophils Percent Auto 50.9 % (45-73); Platelet Count 335 X10*3/uL (160-400); Red Blood Count 5.15 X10*6/uL (4.60-5.80); Red Cell Distribution Width 13.9 % (11.0-16.0)
[2020-11-13 13:47] LABS: Estimated Average Glucose 295 mg/dL; Hemoglobin A1c % 11.9 %
[2020-11-13 13:47] LABS: Creatinine Urine 185.01 mg/dL
[2020-11-13 13:58] LABS: Glucose Urine UA 500 MG/DL (NEG); Leukocyte Esterase Urine NEG (NEG); Nitrite Urine NEG (NEG); Specific Gravity - Urine >= 1.030 (1.005-1.025); Urine Blood 2+ (NEG); Urine Ketones NEG (NEG); Urine Protein 3+ MG/DL (NEG-TRACE)
[2020-11-13 14:01] LABS: Appearance Urine CLEAR; Color Urine YELLOW
[2020-11-13 14:04] LABS: Alanine Aminotransferase 12 U/L (0-40); Albumin Level 3.1 g/dL (3.5-5.0); Alkaline Phosphatase 115 U/L (39-117); Anion Gap 11 (12-20); Aspartate Amino Transferase 12 U/L (5-37); Bilirubin Total < 0.2 mg/dL (0.0-1.0); Blood Urea Nitrogen 24 mg/dL (9-16); Calcium 8.9 mg/dL (8.4-10.2); Carbon Dioxide 30 mmol/L (22-29); Chloride 102 mmol/L (96-108); Cholesterol 237 mg/dL; Estimated Glomerular Filt Rate > 60; Glucose Fasting 365 mg/dL (60-99); HDL Cholesterol 35 mg/dL; LDL Cholesterol Calculated 170 mg/dl; Potassium 4.5 mmol/L (3.3-5.1); Sodium 138 mmol/L (135-145); Total Protein 5.9 g/dL (6.5-8.0); Triglycerides 163 mg/dL
[2020-11-13 14:17] LABS: TSH reflex Free T4 2.97 uIU/mL (0.32-4.0)
[2020-11-13 14:44] LABS: Mucus Urine 1+ /LPF; Squamous Epithelial Cell Urine 2+ /LPF
== END 2020-11-13 12:10 | disposition home or self-care (01) ==
LOC: HO.LAB 12:09
PROVIDERS: PCP Internal Medicine; Visit Provider Internal Medicine
DX: E11.621 Type 2 diabetes mellitus with foot ulcer (principal); L97.509 Non-pressure chronic ulcer of other part of unspecified foot with unspecified severity; E66.9 Obesity, unspecified; E78.5 Hyperlipidemia, unspecified; F17.200 Nicotine dependence, unspecified, uncomplicated; I10 Essential (primary) hypertension; Z79.4 Long term (current) use of insulin
CPT/HCPCS: 36415; 80053; 80061; 81001; 81003; 82043; 83036; 84443; 85025

== ENCOUNTER → 2020-11-23 11:19 | Outpatient (BNVA) | payer OTHER, SELFPAY | PROVIDERS: PCP Internal Medicine; Referring Provider Internal Medicine; Visit Provider Surgery | DX: Z47.81 Encounter for orthopedic aftercare following surgical amputation (principal); Z89.412 Acquired absence of left great toe | CPT/HCPCS: 99212 ==

== ENCOUNTER 2021-01-06 01:29 | Emergency (ER) | payer OTHER, SELFPAY ==
--- NOTE | ~2021-01-06 | XR_ITS ---
EXAMINATION: XR LUMBOSACRAL SPINE CLINICAL INFORMATION: Atraumatic pain COMPARISON: CT dated 03/12/2015 TECHNIQUE: AP and lateral views of the lumbar spine and lateral view of the lumbosacral junction. FINDINGS: Multilevel degenerative disc disease is most pronounced at L3-L4, characterized by loss of vertebral disc height and prominent osteophytes. Mild degenerative disc disease at the levels in the lumbar spine. Mild multilevel facet arthropathy. No fracture or malalignment. Vertebral body heights are normal. No spondylolisthesis. SI joints are unremarkable. Hernia mesh coils are present anteriorly. Soft tissues are unremarkable. XR/XR lumbar spine 2-3V IMPRESSION: Mild to moderate multilevel degenerative disc disease in the lumbar spine, most notable at L3-L4. No acute osseous findings.
[2021-01-06 01:33] VITALS: BP 143/83; PULSE 90; RESP 16; TEMP 36.7; O2SAT 99; BMI 36.0
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
[2021-01-06] MEDS: Cyclobenzaprine HCl 10 MG TABLET PO (03:19)
[2021-01-06] MEDS: oxyCODONE HCl Immed Release 5 MG TABLET 10 MG PO (03:19)
== END 2021-01-06 03:36 | disposition home or self-care (01) ==
PROVIDERS: Emergency Provider Internal Medicine
DX: M54.5 Low back pain (principal); E11.9 Type 2 diabetes mellitus without complications; I10 Essential (primary) hypertension; Z79.4 Long term (current) use of insulin
CPT/HCPCS: 72100; 99283; 99284

== ENCOUNTER → 2021-01-21 11:16 | Outpatient (BNVA) | payer OTHER, SELFPAY | PROVIDERS: Referring Provider Internal Medicine; Visit Provider Surgery | DX: Z47.81 Encounter for orthopedic aftercare following surgical amputation (principal); M86.172 Other acute osteomyelitis, left ankle and foot; Z89.412 Acquired absence of left great toe; Z89.422 Acquired absence of other left toe(s) | CPT/HCPCS: 99212 ==

== ENCOUNTER → 2021-05-05 15:24 | Outpatient (BNVA) | payer OTHER, SELFPAY | PROVIDERS: PCP Internal Medicine; Referring Provider Internal Medicine; Visit Provider Surgery | DX: Z89.419 Acquired absence of unspecified great toe (principal) | CPT/HCPCS: 99212 ==

== ENCOUNTER 2021-06-08 09:08 | Emergency (ER) | payer OTHER, SELFPAY ==
--- NOTE | ~2021-06-08 | CT_ITS ---
EXAMINATION: CT ABDOMEN AND PELVIS WITHOUT CONTRAST CLINICAL INFORMATION: Left flank pain. COMPARISON: CT abdomen and pelvis with contrast 03/12/2015 TECHNIQUE: Multidetector volumetric imaging was performed from the superior aspect of the liver through the pubic symphysis. No oral or intravenous contrast. Sagittal and coronal reformatted images were obtained on the technologist's workstation. This CT examination was performed using dose optimization techniques as appropriate, variously including the following: *Automated exposure control *Adjustment of mA and/or kV according to patient size (this includes techniques or standardized protocols for targeted exams where dose is matched to indication/reason for exam; i.e. extremities or head) *Use of iterative reconstruction technique DLP: 926 mGy-cm FINDINGS: LUNG BASES: The visualized lung bases are unremarkable. LIVER, GALLBLADDER, AND BILIARY TREE: Liver is mildly enlarged similar to prior study 2014, measuring 21.5 cm in length. The liver surface is smooth the parenchyma is homogeneous. There is no focal hepatic parenchymal lesion or intrahepatic biliary ductal dilatation. There are 3 large stones in the gallbladder again seen, each over 2 cm in size. No gallbladder dilatation or pericholecystic inflammatory changes. Common duct unremarkable. PANCREAS: Unremarkable. SPLEEN: Unremarkable. ADRENAL GLANDS: Unremarkable. KIDNEYS AND URETERS: The kidneys show no hydronephrosis, hydroureter, calculi, or perinephric stranding. No ureteral calculi. BLADDER: Unremarkable. GASTROINTESTINAL TRACT: No bowel obstruction or focal inflammatory changes in bowel or mesentery. There is stool throughout the colon. No bowel dilatation or wall thickening or pneumatosis or free air. No ascites or fluid collection. The appendix is normal. ABDOMINAL WALL: Anterior mass with diastases rectus again seen. There is small fat-containing ventral hernia just inferior to the mass measuring under 2 cm. There are small bilateral fat-containing inguinal hernias again noted. LYMPH NODES: No lymphadenopathy VASCULAR: Unremarkable. PELVIC VISCERA: Unremarkable. OSSEOUS STRUCTURES: No acute bony abnormality. There are degenerative changes again noted in the spine. CT/CT abdomen pelvis wo con IMPRESSION: 1. No urinary tract calculi, hydronephrosis, or hydroureter. 2. Chronic large gallstones. No pericholecystic inflammatory changes or ductal dilatation. 3. Moderate stool throughout colon. No bowel obstruction or focal inflammatory changes. Normal appendix.
[2021-06-08 09:38] VITALS: BP 156/98; PULSE 90; RESP 18; TEMP 36.9; O2SAT 99; BMI 39.1
[2021-06-08 09:59] LABS: MANUAL DIFF FLAG NO
[2021-06-08 10:02] LABS: Basophils Percent Auto 0.7 % (0-2); Eosinophils Absolute Auto 0.4 X10*3/uL (0.0-0.4); Eosinophils Percent Auto 6.3 % (0-4); Hematocrit 44.4 % (42.0-52.0); Hemoglobin 14.3 g/dl (14.0-18.0); Imm Gran Abs Auto 0.02 X10*3/uL (0.00-0.03); Imm Gran Pct Auto 0.3 % (0.0-0.4); Lymphocytes Absolute Auto 1.6 X10*3/uL (1.2-4.9); Mean Corpuscular HGB Conc 32.2 g/dl (31.0-36.0); Mean Corpuscular Hemoglobin 26.7 pg (27.0-33.0); Mean Platelet Volume 11.2 fL (9.4-12.4); Monocytes Absolute Auto 0.7 X10*3/uL (0.1-1.2); Monocytes Percent Auto 11.8 % (2-11); Neutrophils Absolute Auto 3.2 x10*3/uL (2.0-8.3); Neutrophils Percent Auto 53.9 % (45-73); Platelet Count 309 X10*3/uL (160-400); Red Blood Count 5.35 X10*6/uL (4.60-5.80); Red Cell Distribution Width 12.6 % (11.0-16.0); White Blood Count 5.9 X10*3/uL (4.8-10.8)
[2021-06-08 10:16] LABS: Appearance Urine CLEAR; Color Urine YELLOW; Glucose Urine UA 500 MG/DL (NEG); Leukocyte Esterase Urine NEG (NEG); Nitrite Urine NEG (NEG); Specific Gravity - Urine >= 1.030 (1.005-1.025); UACC Culture Trigger NO; Urine Blood 2+ (NEG); Urine Ketones NEG (NEG); Urine Protein 3+ MG/DL (NEG-TRACE)
[2021-06-08 10:18] LABS: Alanine Aminotransferase 16 U/L (0-40); Albumin Level 3.2 g/dL (3.5-5.0); Alkaline Phosphatase 103 U/L (39-117); Anion Gap 10 (12-20); Aspartate Amino Transferase 16 U/L (5-37); Bilirubin Total 0.3 mg/dL (0.0-1.0); Blood Urea Nitrogen 18 mg/dL (9-16); Calcium 8.9 mg/dL (8.4-10.2); Carbon Dioxide 28 mmol/L (22-29); Chloride 102 mmol/L (96-108); Creatinine Clr Calc Pharmacy 75.3; Estimated Glomerular Filt Rate 53; Glucose Random 344 mg/dL (60-115); Potassium 4.2 mmol/L (3.3-5.1); Sodium 136 mmol/L (135-145); Total Protein 5.7 g/dL (6.5-8.0)
[2021-06-08 10:27] LABS: Amorphous Sediment Urine TRACE /LPF; Hyaline Casts Urine 0-2 /LPF; Renal Epithelial Cells Urine 1+ /LPF; Squamous Epithelial Cell Urine 1+ /LPF
--- NOTE | 2021-06-08 11:13 | ED.GENADULT ---
HPI - General Adult General Chief complaint: Back Pain/Injury Stated complaint: back pain Time Seen by Provider: 06/08/21 10:59 Source: patient Mode of arrival: ambulatory Limitations: no limitations History of Present Illness HPI narrative: 50-year-old male who presents emergency department for evaluation of left flank pain x3 days. Patient states the pain came on gradually and became progressively worse. The pain is a constant, sharp pain, he points was left flank and left lower groin area when asked to localize the pain. The pain is 8/10 at its worse and is currently 8/10 in the emergency department. States the pain feels similar to the pain that he had when he had a kidney stone in 2013. He states the pain does radiate down his left leg he describes his pain as a constant, mild to moderate tingly sensation. Denies any weakness in his lower extremity. He has noted urinary frequency but no dysuria. He had chills and felt hot at home but did not take his temperature. He denied nausea, vomiting, chest pain, shortness of breath, loss of bowel or bladder control. Past surgical history is significant for an umbilical hernia repaired with mesh in 2003. Related Data Home Medications Medication Instructions Recorded Confirmed insulin syringe-needle U-100 0.3 #10 ea 06/19/20 05/05/21 mL 31 gauge x 5/16 lancets 28 gauge #100 ea 06/19/20 05/05/21 Previous Rx's Medication Instructions Recorded amlodipine 5 mg tablet 5 mg PO DAILY #30 tab 05/09/20 insulin syr/ndl U100 half galen 0.3 #100 ea 05/11/20 mL 31 gauge x 5/16 pen needle, diabetic 32 gauge x #50 ea 05/22/20 5/32 (BD Ultra-Fine Nataliya Pen Needle) insulin aspart U-100 100 unit/mL 15 unit (0.15 mL) SUBCUT TID 30 06/19/20 (3 mL) subcutaneous pen (Novolog Days #15 ml Flexpen U-100 Insulin aspart) sodium chloride 0.9 % irrigation 1 irrig IRRIGATION DAILY PRN #6000 07/15/20 solution (Sterile Saline) ml dressing,[id number] See Rx Instructions TOPICAL 08/27/20 alginate-carboxymethylcellulose 4 .COMPLEX #2 box X 4 adhesive tape #2 ea 10/22/20 gauze bandage 4 1/2 X 147 #48 ea 10/22/20 (Kerlix) gauze bandage 4 X 4 sponge #4 ea 10/22/20 (Kerlix) cyclobenzaprine 10 mg tablet 10 mg PO Q8H #20 tab 01/06/21 albuterol sulfate 90 mcg/actuation 2 puff INHALATION Q6H PRN 30 Days 04/23/21 aerosol inhaler #8.5 g duloxetine 30 mg capsule,delayed 30 mg PO BID 30 Days #60 cap 04/23/21 release pregabalin 50 mg capsule 50 mg PO TID 30 Days #90 cap 04/23/21 tramadol 50 mg tablet 50 mg PO TID PRN 10 Days #30 tab 04/23/21 blood sugar diagnostic #100 ea 05/24/21 blood-glucose meter #1 ea 05/24/21 blood sugar diagnostic (FreeStyle #75 ea 05/25/21 Precision Mushtaq Strips) dulaglutide 0.75 mg/0.5 mL 0.75 mg (0.5 mL) SUBCUT QWEEK #2 ml 05/25/21 subcutaneous pen injector (Imagimod) insulin glargine 100 unit/mL (3 30 unit (0.3 mL) SUBCUT BEDTIME 05/25/21 mL) subcutaneous pen (Amaxa Biosystemsaglar #15 ml KwikPen U-100 Insulin) flash glucose scanning reader #1 ea 05/28/21 (FreeStyle Swati 14 Day [place]) flash glucose sensor (FreeStyle 1 ea TOPICAL Q2W #2 ea 05/28/21 Swati 14 Day Sensor) cyclobenzaprine 10 mg tablet 10 mg PO TID PRN #15 tab 06/08/21 Allergies Allergy/AdvReac Type Severity Reaction Status Date / Time gabapentin AdvReac Intermediate nausea, Verified 05/05/21 16:04 dizziness Review of Systems Review of Systems: Yes all other systems are reviewed and are negative [facility] Past Medical History [facility] Narrative: Social history: Please see below. The patient does smoke cigarettes, 10 per day, he does drink alcohol occasionally, he denies drug use. Medical History Asthma Benign essential hypertension Chronic painful diabetic neuropathy Diabetes mellitus Dry gangrene History of amputation of great toe Hyperlipidemia LDL goal <100 Lumbar degenerative disc disease Neuropathy Obesity (BMI 30-39.9) Osteomyelitis of left foot Pure hypercholesterolemia Type 2 diabetes mellitus with diabetic neuropathy, unspecified Type 2 diabetes mellitus with hyperglycemia, with long-term current use of insulin Umbilical hernia Surgical History H/O hernia repair Status post debridement Status post incision and drainage Status post incision and drainage Family History Family History Father Medical history unknown Mother Asthma Hypertension Diabetes Brother Chronic mental illness Diabetes Social History Social History Household Members: Significant Other Housing: Apartment Do you presently have visiting nurse or other home services: No Alcohol intake: current Alcohol intake frequency: holidays/special occasions only Patient Tobacco Use Status: Current everyday Tobacco user Cigarettes Per Day: 10 Years Smoked: 30 Second Hand Smoke Exposure: Yes Advance Directives: No service: No Current occupational status: employed Physical Exam Vital Signs: Vital Signs: Last Vital Signs Temp 98.4 F 06/08/21 09:38 Pulse 90 06/08/21 09:38 Resp 18 06/08/21 09:38 BP 156/98 H 06/08/21 09:38 Pulse Ox 99 06/08/21 09:38 Body Mass Index 39.1 Const: General: cooperative and no acute distress Orientation/consciousness: oriented to person and oriented to place Limitations: no limitations HENMT: Head: Yes normal to inspection, Yes normocephalic and Yes atraumatic Ears: external ears normal General nose exam: Normal external nose present Face and sinus: Yes normal facial exam Mouth: Normal oral and palatal mucosa present Throat: Yes posterior oropharynx normal Eyes: General: appearance normal, both eyes and all related structures Pupils: Equal, round and reactive pupils present Neck: Neck: Yes normal visual inspection, Yes no lymphadenopathy, Yes trachea midline and Yes supple Chest: Chest palpation & inspection: normal inspection of the chest and normal palpation of entire chest wall Resp: Effort & Inspection: normal respiratory effort and able to speak in complete sentences Auscultation: clear to auscultation bilaterally Cardio: Rate: regular rate Rhythm: regular rhythm Heart sounds: S1 normal heart sound present, S2 normal heart sound present and no murmurs GI: Other: Abdomen is obese, he has umbilical hernia scar with some mild tenderness with palpation of this area with no palpable hernia, he has mild left lower quadrant tenderness, his normal active bowel sounds, no rebound, no voluntary or involuntary guarding. : General: Yes no CVA tenderness Back/Spine/Pelvis: Back: no CVA tenderness Thoracic/Lumbar Spine: thoracic and lumbar spine normal to inspection, straight leg raise negative bilaterally, No paraspinal muscle tenderness, No thoracic spinal tenderness and No lumbar spinal tenderness Skin: General skin exam: no rashes or lesions noted Neuro: General: oriented to person and oriented to place Cranial nerves: Yes CN's II-XII intact bilaterally and Yes Equal, round and reactive pupils present Cognition (Neuro): normal cognition Motor exam (neuro): 5/5 motor strength present throughout Extrem: General: Yes normal to inspection Psych: Appearance: grossly normal Speech and movement: Normal speech and movement present Affect: normal affect Attitude: cooperative Thought process: Normal thought process present Thought content: Normal thought content present Course Course Course Narrative: 50-year-old male who presents emergency department for 3 days of left flank and lower quadrant pain with pain radiating down his left leg, he has also noted urinary frequency with no dysuria. Physical examination did reveal mild left lower quadrant tenderness, he had no CVA tenderness and no tenderness palpation of his vertebrae or paraspinal muscles. Laboratory evaluation revealed a normal CBC. The patient's comprehensive metabolic panel did reveal an elevated creatinine of 1.41 compared to a current of 1.25 on 11/13/2020. The patient's GFR was low at 53. Glucose was elevated at 344. Urinalysis revealed 2+ blood, 3+ protein, positive glucose a concentrated urine. Microscopic revealed 9 RBCs, 4 WBCs, no bacteria. Differential includes renal colic/ureteral stone, small-bowel obstruction, diverticulitis. I did order a CT scan of the abdomen pelvis without IV contrast, Toradol 30 mg IV for his pain and normal saline IV x1 L. 1328: Patient did get some improvement with the above treatment. CT scan of the abdomen pelvis without IV contrast revealed no acute cause for the patient's pain, he does have chronic gallstones I did discuss this with him. Patient's pain is most likely musculoskeletal. He was advised to take Tylenol ibuprofen for pain. He was also started on cyclobenzaprine 10 mg pills 3 times a day as needed for pain and spasm. He was given his 1st dose of cyclobenzaprine 10 mg orally. Patient was given printed and verbal instructions and discharged home in the care of his . Medical Decision Making Lab Data Result diagrams: 06/08/21 09:51 06/08/21 09:51 Labs: Lab Results 06/08/21 06/08/21 06/08/21 Range/Units 09:51 09:51 10:00 WBC 5.9 (4.8-10.8) X10*3/uL RBC 5.35 (4.60-5.80) X10*6/uL Hgb 14.3 (14.0-18.0) g/dl Hct 44.4 (42.0-52.0) % MCV 83.0 (80.0-98.0) fL MCH 26.7 L (27.0-33.0) pg MCHC 32.2 (31.0-36.0) g/dl RDW 12.6 (11.0-16.0) % Plt Count 309 (160-400) X10*3/uL MPV 11.2 (9.4-12.4) fL Immature Gran % (Auto) 0.3 (0.0-0.4) % Neut % (Auto) 53.9 (45-73) % Lymph % (Auto) 27.0 (20-40) % [place] % (Auto) 11.8 H (2-11) % Eos % (Auto) 6.3 H (0-4) % Baso % (Auto) 0.7 (0-2) % Lymph # (Auto) 1.6 (1.2-4.9) X10*3/uL [place] # (Auto) 0.7 (0.1-1.2) X10*3/uL Eos # (Auto) 0.4 (0.0-0.4) X10*3/uL Baso # (Auto) 0.0 (0.0-0.2) X10*3/uL Abs Immat Gran (auto) 0.02 (0.00-0.03) X10*3/uL Absolute Neuts (auto) 3.2 (2.0-8.3) x10*3/uL Absolute Nucleated RBC 0.000 (0.0-0.012) X10*3/uL Nucleated RBC % (auto) 0.0 (0.0-0.2) /100WBC Sodium 136 (135-145) mmol/L Potassium 4.2 (3.3-5.1) mmol/L Chloride 102 (96-108) mmol/L Carbon Dioxide 28 (22-29) mmol/L Anion Gap 10 L (12-20) BUN 18 H (9-16) mg/dL Creatinine 1.41 H (0.5-1.4) mg/dL Estim Creat Clear Calc 75.3 Estimated GFR 53 Random Glucose 344 H (60-115) mg/dL Calcium 8.9 (8.4-10.2) mg/dL Total Bilirubin 0.3 (0.0-1.0) mg/dL AST 16 (5-37) U/L ALT 16 (0-40) U/L Alkaline Phosphatase 103 (39-117) U/L Total Protein 5.7 L (6.5-8.0) g/dL Albumin 3.2 L (3.5-5.0) g/dL Lipase 64 (8-78) U/L Urine Color YELLOW Urine Appearance CLEAR Urine pH 6.0 (5.0-8.0) Ur Specific Goode >= 1.030 H (1.005-1.025) Urine Protein 3+ H (NEG-TRACE) MG/DL Urine Glucose (UA) 500 H (NEG) MG/DL Urine Ketones NEG (NEG) MG/DL Urine Blood 2+ H (NEG) Urine Nitrite NEG (NEG) Ur Leukocyte Esterase NEG (NEG) Urine RBC 5-9 H (0) /HPF Urine WBC 1-4 (0-4) /HPF Ur Squamous Epith Cells 1+ /LPF Ur Renal Epithelial Cell 1+ /LPF Amorphous Sediment TRACE /LPF Urine Bacteria NONE /LPF Hyaline Casts 0-2 /LPF Discharge Plan Discharge Clinical Impression: Acute left flank pain, Lumbar back pain Patient Disposition: Home, Self-Care Instructions: Acute Low Back Pain (ED) Additional Instructions: Back Pain Discharge Instructions: Take Motrin (ibuprofen) 200 mg pills, 2 pills every 6 hours as needed for pain. Take Tylenol (acetaminophen) 500 mg pills, 2 pills every 6 hours as needed for pain. Take Flexeril (cyclobenzaprine) 10 mg pills, 1 pill every 8 hours as needed for pain or muscle spasm. This is a prescription medication. This medication will make you sleepy, therefore do not drive or work while taking this medication. Apply ice for 15 minutes to the area that hurts on your back, then apply a heating a pad on low for 15 minutes. Do this 4-6 times a day to help reduce the pain in your back. Continue with normal activities as tolerated since staying in bed and not moving around will make your pain worse. Please return to the Emergency Department or see your doctor immediately if your symptoms get worse or if you develop any new symptoms that are concerning you. Follow up with your doctor in 2 day. Please read the other printed discharge instructions on back pain. Prescriptions: New cyclobenzaprine 10 mg tablet 10 mg PO TID PRN (Reason: pain, muscle spasm) Qty: 15 RF: 0 No Action (DME) insulin syr/ndl U100 half galen 0.3 mL 31 gauge x 5/16 syringe See Rx Instructions .ROUTE .MEDSUPPLY Qty: 100 RF: 0 sodium chloride [Sterile Saline] 0.9 % solution 1 irrig irrigation DAILY PRN (Reason: wound care) Qty: 6000 RF: 0 (DME) Kerlix 4 X 4 sponge See Rx Instructions .ROUTE .MEDSUPPLY Qty: 4 RF: 1 (DME) Kerlix 4 1/2 X 147 bandage See Rx Instructions .ROUTE .MEDSUPPLY Qty: 48 RF: 1 (DME) adhesive tape 1 1/2 X 10 -yard tape See Rx Instructions .ROUTE .MEDSUPPLY Qty: 2 RF: 1 (DME) blood sugar diagnostic Strip See Rx Instructions .ROUTE .MEDSUPPLY Qty: 100 RF: 0 (DME) blood-glucose meter Kit See Rx Instructions .ROUTE .MEDSUPPLY Qty: 1 RF: 0 (DME) FreeStyle Precision Mushtaq Strips Strip See Rx Instructions .ROUTE .MEDSUPPLY Qty: 75 RF: 6 Trulicity 0.75 mg/0.5 mL pen injector 0.75 mg subcut QWEEK Qty: 2 RF: 3 Basaglar KwikPen U-100 Insulin 100 unit/mL (3 mL) insulin pen 30 unit subcut BEDTIME Qty: 15 RF: 3 (DME) FreeStyle Swati 14 Day [place] Misc See Rx Instructions .ROUTE .MEDSUPPLY Qty: 1 RF: 0 FreeStyle Swati 14 Day Sensor Kit 1 ea topical Q2W Qty: 2 RF: 11 amlodipine 5 mg Tablet 5 mg PO DAILY Qty: 30 RF: 0 cyclobenzaprine 10 mg tablet 10 mg PO Q8H Qty: 20 RF: 0 (DME) pen needle, diabetic [BD Ultra-Fine Nataliya Pen Needle] 32 gauge x 5/32 needle See Rx Instructions .ROUTE .MEDSUPPLY Qty: 50 RF: 3 albuterol sulfate 90 mcg/actuation HFA aerosol inhaler 2 puff INHALATION Q6H PRN (Reason: Respiratory Distress) 30 Days Qty: 8.5 RF: 3 duloxetine 30 mg capsule,delayed release(DR/EC) 30 mg PO BID 30 Days Qty: 60 RF: 2 tramadol 50 mg tablet 50 mg PO TID PRN (Reason: pain) 10 Days Qty: 30 RF: 1 pregabalin 50 mg capsule 50 mg PO TID 30 Days Qty: 90 RF: 0 (DME) insulin syringe-needle U-100 0.3 mL 31 gauge x 5/16 syringe See Rx Instructions ml .ROUTE .MEDSUPPLY Qty: 10 RF: 0 (DME) lancets 28 gauge misc See Rx Instructions gauge topical .MEDSUPPLY Qty: 100 RF: 0 insulin aspart U-100 [Novolog Flexpen U-100 Insulin] 100 unit/mL (3 mL) insulin pen 15 unit subcut TID 30 Days Qty: 15 RF: 0 dress,[id number]-cmc 4 X 4 bandage See Rx Instructions topical .COMPLEX Qty: 2 RF: 0 Stand Alone Forms: Work/School Release
[2021-06-08 12:03] LABS: Lipase 64 U/L (8-78)
[2021-06-08] MEDS: 0.9 % Sodium Chloride 1,000 ML 999 ML IV (12:38)
[2021-06-08] MEDS: Ketorolac Tromethamine 30 MG/ML VIAL IVPUSH (12:57)
[2021-06-08] MEDS: Cyclobenzaprine HCl 10 MG TABLET PO (13:50)
[2021-06-08 14:00] VITALS: BP 185/97; PULSE 83; RESP 18; O2SAT 96
== END 2021-06-08 14:11 | disposition home or self-care (01) ==
PROVIDERS: Emergency Provider Emergency Medicine Emergency Medical Services; PCP Internal Medicine
DX: R10.9 Unspecified abdominal pain (principal); M54.50 Low back pain, unspecified; E11.9 Type 2 diabetes mellitus without complications; F17.200 Nicotine dependence, unspecified, uncomplicated; Z79.4 Long term (current) use of insulin; Z87.442 Personal history of urinary calculi
CPT/HCPCS: 36415; 74176; 80053; 81001; 83690; 85025; 96361; 96374; 99284; J1885

== ENCOUNTER 2021-07-13 16:09 | Emergency (ER) | payer OTHER, SELFPAY | END 2021-07-13 18:46 | disposition left against medical advice (07) | PROVIDERS: Emergency Provider Emergency Medicine; PCP Internal Medicine | DX: L84 Corns and callosities (principal) ==

== ENCOUNTER → 2021-07-21 14:40 | Outpatient (BNVA) | payer OTHER, SELFPAY | PROVIDERS: PCP Internal Medicine; Referring Provider Internal Medicine; Visit Provider Surgery | DX: L84 Corns and callosities (principal); E11.8 Type 2 diabetes mellitus with unspecified complications | CPT/HCPCS: 11042; 99212 ==

== ENCOUNTER → 2021-08-05 11:49 | Outpatient (BNVA) | payer OTHER, SELFPAY | PROVIDERS: PCP Internal Medicine; Referring Provider Internal Medicine; Visit Provider Surgery | DX: L84 Corns and callosities (principal); Z89.412 Acquired absence of left great toe | CPT/HCPCS: 11000; 99212 ==

== ENCOUNTER → 2021-10-07 13:09 | Outpatient (BNVA) | payer OTHER, SELFPAY | PROVIDERS: PCP Internal Medicine; Referring Provider Internal Medicine; Visit Provider Surgery | DX: L84 Corns and callosities (principal) | CPT/HCPCS: 97597; 99212 ==

== ENCOUNTER 2021-12-01 03:35 | Emergency (ER) | payer OTHER, SELFPAY ==
[2021-12-01 03:51] VITALS: BP 138/89; PULSE 89; RESP 18; TEMP 36.9; O2SAT 98; BMI 36.8
[2021-12-01 03:56] VITALS: PULSE 95; RESP 14; O2SAT 96
--- NOTE | 2021-12-01 03:57 | ED_ITS ---
HPI - Extremity Injury (Lower) General Chief Complaint: Extremity Injury, Lower Stated Complaint: painful, protruding vein R hernández Time Seen by Provider: 12/01/21 03:56 Source: patient Mode of arrival: ambulatory Limitations: no limitations History of Present Illness MD complaint: leg injury Onset (ago): day(s) (2) Type of Injury: blunt Place: street/outdoors Severity: mild Relieving factors: nothing Exacerbating factors: movement and palpation Context: direct blow Associated symptoms: other (abrasion) Other symptoms: none Treatments prior to arrival: other (applies topical greenlandic medicine) Related Data Home Medications Medication Instructions Recorded Confirmed insulin syringe-needle U-100 0.3 #10 ea 06/19/20 10/07/21 mL 31 gauge x 5/16 lancets 28 gauge #100 ea 06/19/20 10/07/21 Previous Rx's Medication Instructions Recorded amlodipine 5 mg tablet 5 mg PO DAILY #30 tab 05/09/20 insulin syr/ndl U100 half galen 0.3 #100 ea 05/11/20 mL 31 gauge x 5/16 pen needle, diabetic 32 gauge x #50 ea 05/22/20 5/32 (BD Ultra-Fine Nataliya Pen Needle) insulin aspart U-100 100 unit/mL 15 unit (0.15 mL) SUBCUT TID 30 06/19/20 (3 mL) subcutaneous pen (Novolog Days #15 ml Flexpen U-100 Insulin aspart) sodium chloride 0.9 % irrigation 1 irrig IRRIGATION DAILY PRN #6000 07/15/20 solution (Sterile Saline) ml dressing,[id number]-[id number]-jfg See Rx Instructions TOPICAL 08/27/20 alginate-carboxymethylcellulose 4 .COMPLEX #2 box X 4 adhesive tape #2 ea 10/22/20 gauze bandage 4 1/2 X 147 #48 ea 10/22/20 (Kerlix) gauze bandage 4 X 4 sponge #4 ea 10/22/20 (Kerlix) cyclobenzaprine 10 mg tablet 10 mg PO Q8H #20 tab 01/06/21 duloxetine 30 mg capsule,delayed 30 mg PO BID 30 Days #60 cap 04/23/21 release pregabalin 50 mg capsule 50 mg PO TID 30 Days #90 cap 04/23/21 tramadol 50 mg tablet 50 mg PO TID PRN 10 Days #30 tab 04/23/21 blood sugar diagnostic #100 ea 05/24/21 blood-glucose meter #1 ea 05/24/21 blood sugar diagnostic (FreeStyle #75 ea 05/25/21 Precision Mushtaq Strips) dulaglutide 0.75 mg/0.5 mL 0.75 mg (0.5 mL) SUBCUT QWEEK #2 ml 05/25/21 subcutaneous pen injector (Trulicity) insulin glargine 100 unit/mL (3 30 unit (0.3 mL) SUBCUT BEDTIME 05/25/21 mL) subcutaneous pen (Basaglar #15 ml KwikPen U-100 Insulin) flash glucose scanning reader #1 ea 05/28/21 (FreeStyle Swati 14 Day Etoile) flash glucose sensor (FreeStyle 1 ea TOPICAL Q2W #2 ea 05/28/21 Swati 14 Day Sensor) cyclobenzaprine 10 mg tablet 10 mg PO TID PRN #15 tab 06/08/21 albuterol sulfate 90 mcg/actuation 2 puff INHALATION Q6H PRN 30 Days 07/14/21 aerosol inhaler #8.5 g adhesive tape #1 ea 07/21/21 gauze bandage (Band-Aid Rolled #30 ea 07/21/21 Gauze) gauze bandage 4 X 4 (Band-Aid #25 ea 07/21/21 Gauze Pads) off loading shoe #1 ea 07/21/21 cephalexin 500 mg capsule 500 mg PO BID 7 Days #14 cap 12/01/21 mupirocin 2 % topical ointment 1 appl TOPICAL BID 7 Days #15 g 12/01/21 Allergies Allergy/AdvReac Type Severity Reaction Status Date / Time gabapentin AdvReac Intermediate nausea, Verified 12/01/21 03:53 dizziness Review of Systems Review of Systems: Constitutional : No Fever, No Chills, Cardiovascular : No Chest Pain, No SOB Respiratory : No Dyspnea Gastrointestinal : No abdominal pain Musculoskeletal : No Joint Swelling Skin : No rash, positive skin laceration Neuro : No Weakness, No Numbness PMFSH Past Medical History Medical History Asthma Benign essential hypertension Callus of foot Callus under metatarsal head Chronic painful diabetic neuropathy Diabetes mellitus Diabetic foot Dry gangrene History of amputation of great toe Hyperlipidemia LDL goal <100 Lumbar degenerative disc disease Neuropathy Obesity (BMI 30-39.9) Osteomyelitis of left foot Pure hypercholesterolemia Type 2 diabetes mellitus with diabetic neuropathy, unspecified Type 2 diabetes mellitus with hyperglycemia, with long-term current use of insulin Umbilical hernia Surgical History H/O hernia repair Status post debridement Status post incision and drainage Status post incision and drainage Family History Family History Father Medical history unknown Mother Asthma Hypertension Diabetes Brother Chronic mental illness Diabetes Social History Social History Household Members: Significant Other Housing: Apartment Do you presently have visiting nurse or other home services: No Alcohol intake: current Alcohol intake frequency: holidays/special occasions only Patient Tobacco Use Status: Current everyday Tobacco user Cigarettes Per Day: 10 Years Smoked: 30 Second Hand Smoke Exposure: Yes service: No Current occupational status: employed Physical Exam Vital Signs: Vital Signs: Last Vital Signs Temp 98.5 F 12/01/21 03:51 Pulse 95 12/01/21 03:56 Resp 14 12/01/21 03:56 BP 138/89 12/01/21 03:51 Pulse Ox 96 12/01/21 03:56 BMI result Body Mass Index 36.8 Appearance: Alert. Oriented X3. No acute distress. Eyes: Pupils equal, round and reactive to light. ENT: Pharynx normal. Neck: Normal inspection. CVS: Pulses normal. Respiratory: No respiratory distress. Abdomen: atrauamatic Skin: Skin warm and dry. Normal skin color. R anterior hernández quarter size shallow abrasion miminal erythema no fluctuance no drainage very superficial no surrounding edema or erythema, no swelling noted Extremities: No lower extremity edema. Neuro: Oriented X 3. No motor deficit. No sensory deficit. MDM - Extremity Injury (Lower) MDM Narrative Medical decision making narrative: 51 yo male with hx of chronic pain, DM, neuropathy here with R anterior hernández abrasion - at this time it is not infected and his exam is very underwhelming but given his history he is high risk will provide cephalexin and mupirocin to prevent infection. He is NV intact. Doubt fracture. No signs of abscess - can follow up and monitor at home. Discharge Plan Discharge Clinical Impression: Abrasion Patient Disposition: Home, Self-Care Instructions: Abrasion (ED) Additional Instructions: return to ED for any worsening symptoms or concerns keep clean and dry monitor for increased redness or yellow drainage, monitor for fevers Prescriptions: New cephalexin 500 mg capsule 500 mg PO BID 7 Days Qty: 14 0RF mupirocin 2 % ointment 1 appl topical BID 7 Days Qty: 15 0RF No Action (DME) insulin syr/ndl U100 half galen 0.3 mL 31 gauge x 5/16 syringe See Rx Instructions .ROUTE .MEDSUPPLY Qty: 100 0RF Rx Instructions: As directed - covering for DR. SILVESTRE HILL sodium chloride [Sterile Saline] 0.9 % solution 1 irrig irrigation DAILY PRN (Reason: wound care) Qty: 6000 0RF (DME) Kerlix 4 X 4 sponge See Rx Instructions .ROUTE .MEDSUPPLY Qty: 4 1RF Rx Instructions: 4 boxes of 4x4 kerlix fluff gauze - apply to wound daily (DME) Kerlix 4 1/2 X 147 bandage See Rx Instructions .ROUTE .MEDSUPPLY Qty: 48 1RF Rx Instructions: apply to wound daily (DME) adhesive tape 1 1/2 X 10 -yard tape See Rx Instructions .ROUTE .MEDSUPPLY Qty: 2 1RF Rx Instructions: apply to wound daily (DME) blood sugar diagnostic Strip See Rx Instructions .ROUTE .MEDSUPPLY Qty: 100 0RF Rx Instructions: As directed (DME) blood-glucose meter Kit See Rx Instructions .ROUTE .MEDSUPPLY Qty: 1 0RF Rx Instructions: As directed (DME) FreeStyle Precision Mushtaq Strips Strip See Rx Instructions .ROUTE .MEDSUPPLY Qty: 75 6RF Rx Instructions: As directed three times a day Trulicity 0.75 mg/0.5 mL pen injector 0.75 mg subcut QWEEK Qty: 2 3RF Basaglar KwikPen U-100 Insulin 100 unit/mL (3 mL) insulin pen 30 unit subcut BEDTIME Qty: 15 3RF (DME) FreeStyle Swati 14 Day Etoile Misc See Rx Instructions .ROUTE .MEDSUPPLY Qty: 1 0RF Rx Instructions: As directed FreeStyle Swati 14 Day Sensor Kit 1 ea topical Q2W Qty: 2 11RF albuterol sulfate 90 mcg/actuation HFA aerosol inhaler 2 puff INHALATION Q6H PRN (Reason: Respiratory Distress) 30 Days Qty: 8.5 3RF (DME) adhesive tape 2 X 10 -yard tape See Rx Instructions .ROUTE .MEDSUPPLY Qty: 1 0RF Rx Instructions: As directed (DME) gauze bandage [Band-Aid Gauze Pads] 4 X 4 bandage See Rx Instructions .Route Qty: 25 3RF Rx Instructions: As directed (DME) gauze bandage [Band-Aid Rolled Gauze] 3 X 2.5 -yard bandage See Rx Instructions .Route Qty: 30 3RF Rx Instructions: As directed (DME) off loading shoe Kit See Rx Instructions .Route Qty: 1 0RF Rx Instructions: As directed amlodipine 5 mg Tablet 5 mg PO DAILY Qty: 30 0RF Protocol: Hold for SBP< HOLD for SBP < : 90 cyclobenzaprine 10 mg tablet 10 mg PO Q8H Qty: 20 0RF cyclobenzaprine 10 mg tablet 10 mg PO TID PRN (Reason: pain, muscle spasm) Qty: 15 0RF (DME) pen needle, diabetic [BD Ultra-Fine Nataliya Pen Needle] 32 gauge x 5/32 needle See Rx Instructions .ROUTE .MEDSUPPLY Qty: 50 3RF Rx Instructions: As directed duloxetine 30 mg capsule,delayed release(DR/EC) 30 mg PO BID 30 Days Qty: 60 2RF tramadol 50 mg tablet 50 mg PO TID PRN (Reason: pain) 10 Days Qty: 30 1RF pregabalin 50 mg capsule 50 mg PO TID 30 Days Qty: 90 0RF (DME) insulin syringe-needle U-100 0.3 mL 31 gauge x 5/16 syringe See Rx Instructions ml .ROUTE .MEDSUPPLY Qty: 10 0RF Rx Instructions: As directed (DME) lancets 28 gauge misc See Rx Instructions gauge topical .MEDSUPPLY Qty: 100 0RF Rx Instructions: As directed insulin aspart U-100 [Novolog Flexpen U-100 Insulin] 100 unit/mL (3 mL) insulin pen 15 unit subcut TID 30 Days Qty: 15 0RF dress,pmchupe-wlos-lbegzji-cmc 4 X 4 bandage See Rx Instructions topical .COMPLEX Qty: 2 0RF Rx Instructions: apply to bed of left foot wound, topically, every other day;
[2021-12-01] MEDS: cephALEXin 500 MG CAPSULE PO (04:23)
[2021-12-01] MEDS: Acetaminophen 325 MG TABLET 650 MG PO (04:27)
== END 2021-12-01 04:29 | disposition home or self-care (01) ==
LOC: HO.ED 04:07
PROVIDERS: Emergency Provider Emergency Medicine; PCP Internal Medicine
DX: S80.811A Abrasion, right lower leg, initial encounter (principal); Y29.XXXA Contact with blunt object, undetermined intent, initial encounter; Y93.9 Activity, unspecified; Y99.9 Unspecified external cause status; Y92.007 Garden or yard of unspecified non-institutional (private) residence as the place of occurrence of the external cause; F17.210 Nicotine dependence, cigarettes, uncomplicated; Z71.6 Tobacco abuse counseling; Z79.899 Other long term (current) drug therapy
CPT/HCPCS: 99283; 99284

== ENCOUNTER 2022-02-07 23:52 | Emergency (ER) | payer OTHER, SELFPAY ==
--- NOTE | 2022-02-07 23:59 | ECG_ITS ---
Test Reason : dizziness Blood Pressure : / mmHG Vent. Rate : 091 BPM Atrial Rate : 091 BPM P-R Int : 144 ms QRS Dur : 092 ms QT Int : 378 ms P-R-T Axes : 067 053 068 degrees QTc Int : 464 ms Normal sinus rhythm Low voltage QRS Borderline ECG When compared with ECG of 21-MAY-2020 16:14, No significant change was found Referred By: Generic ED Physician Electronically Signed By:PASTORA CROUCH MD
[2022-02-08 00:06] VITALS: BP 129/89; PULSE 93; RESP 18; TEMP 36.6; O2SAT 98; BMI 35.2
[2022-02-08] MEDS: Ondansetron ODT 4 MG TAB.RAPDIS TRANSLINGU (00:10)
[2022-02-08 00:26] LABS: Basophils Percent Auto 0.6 % (0-2); Eosinophils Absolute Auto 0.4 X10*3/uL (0.0-0.4); Eosinophils Percent Auto 7.1 % (0-4); Hematocrit 39.7 % (42.0-52.0); Hemoglobin 12.9 g/dl (14.0-18.0); Imm Gran Abs Auto 0.03 X10*3/uL (0.00-0.03); Imm Gran Pct Auto 0.5 % (0.0-0.4); Lymphocytes Absolute Auto 1.2 X10*3/uL (1.2-4.9); Lymphocytes Percent Auto 18.8 % (20-40); MANUAL DIFF FLAG NO; Mean Corpuscular HGB Conc 32.5 g/dl (31.0-36.0); Mean Corpuscular Hemoglobin 26.6 pg (27.0-33.0); Mean Corpuscular Volume 81.9 fL (80.0-98.0); Mean Platelet Volume 11.2 fL (9.4-12.4); Monocytes Absolute Auto 0.6 X10*3/uL (0.1-1.2); Neutrophils Absolute Auto 3.9 x10*3/uL (2.0-8.3); Platelet Count 267 X10*3/uL (160-400); Red Blood Count 4.85 X10*6/uL (4.60-5.80); Red Cell Distribution Width 13.1 % (11.0-16.0); White Blood Count 6.2 X10*3/uL (4.8-10.8)
[2022-02-08 00:45] LABS: COVID-19 Test Negative (Negative)
[2022-02-08 02:57] LABS: Alanine Aminotransferase 14 U/L (0-40); Albumin Level 3.6 g/dL (3.5-5.0); Alkaline Phosphatase 99 U/L (39-117); Anion Gap 15 (12-20); Aspartate Amino Transferase 15 U/L (5-37); Bilirubin Total 0.2 mg/dL (0.0-1.0); Blood Urea Nitrogen 26 mg/dL (9-16); Calcium 8.7 mg/dL (8.4-10.2); Carbon Dioxide 25 mmol/L (22-29); Chloride 104 mmol/L (96-108); Creatinine Clr Calc Pharmacy 52.9; Estimated Glomerular Filt Rate 38; Glucose Random 343 mg/dL (60-115); Potassium 4.6 mmol/L (3.3-5.1); Sodium 139 mmol/L (135-145); Total Protein 6.3 g/dL (6.5-8.0)
== END 2022-02-08 03:40 | disposition left against medical advice (07) ==
LOC: HO.ED 02-08 03:27
PROVIDERS: Emergency Provider Emergency Medicine; PCP Internal Medicine
DX: R42 Dizziness and giddiness (principal); R11.10 Vomiting, unspecified; Z20.822 Contact with and (suspected) exposure to COVID-19; E11.9 Type 2 diabetes mellitus without complications; I10 Essential (primary) hypertension; E78.00 Pure hypercholesterolemia, unspecified; F17.200 Nicotine dependence, unspecified, uncomplicated; E66.9 Obesity, unspecified; Z68.35 Body mass index [BMI] 35.0-35.9, adult
CPT/HCPCS: 80053; 85025; 87635; 93005; 99281; 99283

== ENCOUNTER → 2022-03-02 13:34 | Outpatient (BNVA) | payer OTHER, SELFPAY | PROVIDERS: PCP Internal Medicine; Visit Provider Surgery | DX: L84 Corns and callosities (principal) | CPT/HCPCS: 97597; 99212 ==

== ENCOUNTER 2022-03-30 13:59 | Emergency (ER) | payer OTHER, SELFPAY ==
--- NOTE | ~2022-03-30 | CT_ITS ---
EXAMINATION: CT HEAD WITHOUT CONTRAST CT CERVICAL SPINE WITHOUT CONTRAST CLINICAL INFORMATION: Syncope, head injury. COMPARISON: CT head dated from 12/26/2018. TECHNIQUE: Contiguous axial imaging was performed from the skull base to vertex without intravenous administration of contrast. Contiguous axial imaging was performed from the upper chest through the skull base without intravenous administration of contrast. Coronal and sagittal reformats were obtained at the acquisition workstation. This CT examination was performed using dose optimization techniques as appropriate, variously including the following: *Automated exposure control *Adjustment of mA and/or kV according to patient size (this includes techniques or standardized protocols for targeted exams where dose is matched to indication/reason for exam; i.e. extremities or head) *Use of iterative reconstruction technique DLP: 745 and 962 mGy-cm FINDINGS: Head: There is no evidence of acute intracranial hemorrhage or edematous territorial infarction. Scattered hypoattenuation in the periventricular and deep white matter are consistent with moderate microangiopathy. Bliss-white matter differentiation is preserved. Proportional prominence of the ventricles and sulcal spaces. No evidence for obstructive hydrocephalus. No abnormal mass effect or midline shift. No extra-axial fluid collections. No acute soft tissue or osseous abnormalities. Paranasal sinus disease with near complete opacification of the left maxillary sinus and ethmoid air cells. Bilateral mastoid effusions. The right middle ear cavity is opacified. Cervical Spine: The atlantooccipital and atlantoaxial articulations remain well aligned. Straightening of the normal cervical lordosis. Otherwise, there is anatomic alignment of the vertebral bodies and posterior elements. No evidence of acute fracture or subluxation. There is multilevel cervical spondylosis with variously degrees of disc space narrowing and neural foraminal encroachment. There is moderate facet arthropathy on the left side at the level of C2-C3. There is no prevertebral soft tissue swelling. The thyroid gland and remaining cervical soft tissues are normal in appearance. The lung apices demonstrate no abnormalities. CT/CT cervical spine wo IV con IMPRESSION: 1. No acute intracranial abnormality. 2. No acute cervical spine fracture or subluxation. 3. Extensive paranasal sinus disease. 4. Bilateral mastoid effusions. 5. Opacification of the right middle ear, correlate clinically for otitis.
[2022-03-30 14:09] VITALS: BP 170/92; PULSE 76; O2SAT 98
[2022-03-30 14:17] VITALS: BP 171/98; PULSE 78; RESP 22; TEMP 36.7; O2SAT 99; BMI 35.2
--- NOTE | 2022-03-30 14:42 | ED_ITS ---
HPI - Syncope General Chief Complaint: Syncope Stated Complaint: Fall Time Seen by Provider: 03/30/22 14:07 Source: patient and EMS Mode of arrival: EMS History of Present Illness HPI narrative: 51-year-old male with a past medical history of asthma, HTN, diabetes noncompliant medication, degenerative disc disease, HLD, obesity, presenting to ED via EMS s/p syncopal episode at home with + head strike. Patient states he got up from bed felt lightheaded and passed out hitting head on carpet floor. Initially had headache/neck pain which is now resolved. POC 250 by EMS. Patient denies CP/SOB prior to fall. Denies headache at present, neck pain, back pain, nausea / vomiting, abdominal pain, weakness. Denies taking AC. No reported tongue biting or urinary incontinence States he is supposed to take both metformin and insulin for his diabetes however is noncompliant and does not check his POC's MD complaint: loss of consciousness, felt faint and collapsed Onset (ago): hour(s) Related Data Home Medications Medication Instructions Recorded Confirmed insulin syringe-needle U-100 0.3 #10 ea 06/19/20 03/02/22 mL 31 gauge x 5/16 lancets 28 gauge #100 ea 06/19/20 03/02/22 Previous Rx's Medication Instructions Recorded amlodipine 5 mg tablet 5 mg PO DAILY #30 tabs 05/09/20 insulin syr/ndl U100 half galen 0.3 #100 ea 05/11/20 mL 31 gauge x 5/16 pen needle, diabetic 32 gauge x #50 ea 05/22/20/32 (BD Ultra-Fine Nataliya Pen Needle) insulin aspart U-100 100 unit/mL 15 unit (0.15 mL) subcut TID 30 06/19/20 (3 mL) subcutaneous pen (Novolog days #15 mL Flexpen U-100 Insulin aspart) sodium chloride 0.9 % irrigation 1 irrig irrigation DAILY PRN wound 07/15/20 solution (Sterile Saline) care #6,000 mL dressing,zdgagmzj-rzkjce-hua See Rx Instructions topical 08/27/20 alginate-carboxymethylcellulose 4 .COMPLEX apply to bed of left foot X 4 wound every other day #2 boxes adhesive tape 1 1/2 X 10 yard #2 ea 10/22/20 gauze bandage 4 1/2 X 147 #48 ea 10/22/20 (Kerlix) gauze bandage 4 X 4 sponge #4 ea 10/22/20 (Kerlix) cyclobenzaprine 10 mg tablet 10 mg PO Q8H #20 tabs 01/06/21 duloxetine 30 mg capsule,delayed 30 mg PO BID 30 days #60 caps 04/23/21 release pregabalin 50 mg capsule 50 mg PO TID 30 days #90 caps 04/23/21 tramadol 50 mg tablet 50 mg PO TID PRN pain 10 days #30 04/23/21 tabs blood sugar diagnostic #100 ea 05/24/21 blood-glucose meter #1 ea 05/24/21 blood sugar diagnostic (FreeStyle #75 ea 05/25/21 Precision Mushtaq Strips) dulaglutide 0.75 mg/0.5 mL 0.75 mg (0.5 mL) subcut QWEEK #2 mL 05/25/21 subcutaneous pen injector ([employer]) insulin glargine 100 unit/mL (3 30 unit (0.3 mL) subcut BEDTIME 05/25/21 mL) subcutaneous pen (Quantopianaglar #15 mL KwikPen U-100 Insulin) flash glucose scanning reader #1 ea 05/28/21 (FreeStyle Swati 14 Day Beebe) flash glucose sensor (FreeStyle 1 ea topical Q2W #2 ea 05/28/21 Swati 14 Day Sensor kit) cyclobenzaprine 10 mg tablet 10 mg PO TID PRN pain, muscle 06/08/21 spasm #15 tabs adhesive tape 2 X 10 yard #1 ea 07/21/21 gauze bandage 3 X 2.5 yard #30 ea 07/21/21 (Band-Aid Rolled Gauze) gauze bandage 4 X 4 (Band-Aid #25 ea 07/21/21 Gauze Pads) off loading shoe #1 ea 07/21/21 cephalexin 500 mg capsule 500 mg PO BID 7 days #14 caps 12/01/21 mupirocin 2 % topical ointment 1 appl topical BID 7 days #15 grams 12/01/21 diabetic shoe #1 ea 03/09/22 diabetic shoe inserts #1 ea 03/09/22 albuterol sulfate 90 mcg/actuation 2 puff inhalation Q6H PRN 03/27/22 aerosol inhaler Respiratory Distress 30 days #8.5 grams Allergies Allergy/AdvReac Type Severity Reaction Status Date / Time gabapentin AdvReac Intermediate nausea, Verified 03/02/22 13:41 dizziness Review of Systems Review of Systems: Constitutional: No Fever, No Chills, No Fatigue, No Malaise ENT/Mouth: No Hearing loss, No Ear Pain, No Nasal Congestion, No sore throat, No Rhinorrhea, No Swallowing Difficulty Eyes: No Eye Pain, No Swelling, No Redness, No Vision Changes Cardiovascular: No Chest Pain, No SOB, No Edema, No Palpitations Respiratory: No Cough, No Dyspnea Gastrointestinal: No Nausea, No Vomiting, No Diarrhea, No Constipation, No Abdominal pain Genitourinary: No Dysuria, No Urinary Frequency, No Hematuria, No Urinary Incontinence/retention, No Urgency, No Flank Pain Musculoskeletal: + joint pain, No Myalgias, No Joint Swelling Skin: No Skin Lesions, No rash Neuro: No Weakness, No Numbness, No Paresthesias, + Loss of Consciousness, + lightheaded, + Headache (resolved) Yes all other systems are reviewed and are negative Constitutional: Constitutional: Reports as per HPI Neurologic: Denies Abnormal speech present [facility] Past Medical History Attestation statement: The following information was validated with the patient. Medical History Asthma Benign essential hypertension Callus of foot Callus under metatarsal head Chronic painful diabetic neuropathy Diabetes mellitus Diabetic foot Dry gangrene History of amputation of great toe Hyperlipidemia LDL goal <100 Lumbar degenerative disc disease Neuropathy Obesity (BMI 30-39.9) Osteomyelitis of left foot Pure hypercholesterolemia Type 2 diabetes mellitus with diabetic neuropathy, unspecified Type 2 diabetes mellitus with hyperglycemia, with long-term current use of insulin Umbilical hernia Surgical History H/O hernia repair Status post debridement Status post incision and drainage Status post incision and drainage Family History Family History Father Medical history unknown Mother Asthma Hypertension Diabetes Brother Chronic mental illness Diabetes Social History Social History Household Members: Significant Other Housing: Apartment Do you presently have visiting nurse or other home services: No Alcohol intake: current Alcohol intake frequency: holidays/special occasions only Patient Tobacco Use Status: Current everyday Tobacco user Cigarettes Per Day: 10 Years Smoked: 30 Second Hand Smoke Exposure: Yes Advance Directives: Yes Advance Directives on File: Yes Advance Directives Date on File: 05/30/20 service: No Current occupational status: employed Physical Exam Vital Signs: Vital Signs: Last Vital Signs Temp 98.0 F 03/30/22 14:17 Pulse 78 03/30/22 14:17 Resp 22 H 03/30/22 14:17 BP 171/98 H 03/30/22 14:17 Pulse Ox 99 03/30/22 14:17 O2 Del Method 03/30/22 14:17 BMI result Body Mass Index 35.2 Const: General: cooperative, healthy appearing, no acute distress, alert and awake Orientation/consciousness: patient oriented x3 Limitations: no limitations HEENT: Other: + small hematoma to left frontal forehead. C-collar in place Head: Yes normal to inspection, No Clayton's sign and No raccoon eyes Ears: hearing grossly normal bilaterally General nose exam: Normal external nose present Face and sinus: Yes normal facial exam Mouth: Normal oral and palatal mucosa present Eyes: General: appearance normal, both eyes and all related structures Pupils: Equal, round and reactive pupils present EOM: EOMs intact bilaterally Neck: Neck: Yes normal visual inspection, Yes no meningeal signs, Yes supple and No anterior neck swelling Chest: Chest palpation & inspection: normal inspection of the chest Resp: Effort & Inspection: normal respiratory effort and no respiratory distress Auscultation: clear to auscultation bilaterally, no crackles, no rales, no rhonchi and no wheezes Cardio: Rate: regular rate Heart sounds: S1 normal heart sound present and S2 normal heart sound present GI: Inspection: Yes normal to inspection Palpation (GI): Soft to palpation, nontender, no guarding and not rigid : General: Yes no CVA tenderness Back/Spine/Pelvis: Other: No midline thoracic/lumbar spinous tenderness/step-off or deformity Back: no CVA tenderness Skin: Rashes: no rashes Wounds: no wounds Neuro: General: patient oriented x3, gait normal, tone normal, moves all extremities, no meningeal signs, no focal motor deficits and CN's II-XI intact bilaterally Cranial nerves: Yes CN's II-XII intact bilaterally, Yes Equal, round and reactive pupils present and Yes Bilaterally intact EOM present Cognition (Neuro): normal cognition Speech: No Abnormal speech present Gait exam (Neuro): Normal gait present Motor exam (neuro): 5/5 motor strength present throughout, Pronator motor function not present and no tremor noted Coordination: wmxnan-yf-abjq test normal Romberg Test: Negative Extrem: General: Yes normal to inspection Course Course Course Narrative: 1445--patient would like to leave AMA, took his C-collar off and walked out of his room, he is A&O x3, competent to make his own decisions, ambulating with steady gait discussed risks of leaving including /disability, permanent pain, decreased quality of life, etc. Patient always welcome to return to the ED. will sign out AMA MDM - Syncope MDM Narrative Medical decision making narrative: 51-year-old male with a past medical history of asthma, HTN, diabetes noncompliant medication, degenerative disc disease, HLD, obesity, presenting to ED via EMS s/p syncopal episode at home with + head strike. On exam tachypnea, C-collar in place, NAD, no focal neuro deficits, no midline spinous tenderness throughout. Concern for vasovagal syncope vs ACS vs DKA/hyperglycemia vs metabolic/infectious etiologies. rule out ICH/fractures Plan: EKG, labs, UA, CXR, head/C-spine CT, orthostatics, IV F, reassess Differential Diagnosis Differential diagnosis: Likely syncope due to orthostatic hypotension, vasovagal syncope, complete atrioventricular block and dehydration Medical Records Attestation: I reviewed the patient's medical records. Lab Data Attestation: I reviewed the patient's lab results. Discharge Plan Discharge Clinical Impression: Syncope, Head injury Patient Disposition: Left Against Medical Advice Instructions: Syncope (ED), Head Injury (ED) Additional Instructions: YOU ARE LEAVING AGAINST MEDICAL ADVICE. LEAVING PRIOR TO EVALUATION COULD CAUSE , PERMANENT DISABILITY, PERMANENT PAIN, AND DECREASED QUALITY OF LIFE YOU ARE ALWAYS WELCOME TO RETURN TO THE EMERGENCY DEPARTMENT PLEASE HAVE CLOSE FOLLOW-UP WITH YOUR DOCTOR. PLEASE MONITOR YOUR BLOOD GLUCOSE IF YOU DEVELOP CONSTANT WORSENING HEADACHE, WEAKNESS, PASS OUT AGAIN RETURN TO THE ED IMMEDIATELY Prescriptions: No Action (DME) insulin syr/ndl U100 half galen 0.3 mL 31 gauge x 5/16 syringe See Rx Instructions .ROUTE .MEDSUPPLY Qty: 100 0RF Rx Instructions: As directed - covering for DR. SILVESTRE HILL sodium chloride [Sterile Saline] 0.9 % solution 1 irrig irrigation DAILY PRN (Reason: wound care) Qty: 6000 0RF (DME) Kerlix 4 X 4 sponge See Rx Instructions .ROUTE .MEDSUPPLY Qty: 4 1RF Rx Instructions: 4 boxes of 4x4 kerlix fluff gauze - apply to wound daily (DME) Kerlix 4 1/2 X 147 bandage See Rx Instructions .ROUTE .MEDSUPPLY Qty: 48 1RF Rx Instructions: apply to wound daily (DME) adhesive tape 1 1/2 X 10 -yard tape See Rx Instructions .ROUTE .MEDSUPPLY Qty: 2 1RF Rx Instructions: apply to wound daily (DME) blood sugar diagnostic Strip See Rx Instructions .ROUTE .MEDSUPPLY Qty: 100 0RF Rx Instructions: As directed (DME) blood-glucose meter Kit See Rx Instructions .ROUTE .MEDSUPPLY Qty: 1 0RF Rx Instructions: As directed (DME) FreeStyle Precision Mushtaq Strips Strip See Rx Instructions .ROUTE .MEDSUPPLY Qty: 75 6RF Rx Instructions: As directed three times a day Trulicity 0.75 mg/0.5 mL pen injector 0.75 mg subcut QWEEK Qty: 2 3RF Basaglar KwikPen U-100 Insulin 100 unit/mL (3 mL) insulin pen 30 unit subcut BEDTIME Qty: 15 3RF (DME) FreeStyle Swati 14 Day Beebe Misc See Rx Instructions .ROUTE .MEDSUPPLY Qty: 1 0RF Rx Instructions: As directed FreeStyle Swati 14 Day Sensor Kit 1 ea topical Q2W Qty: 2 11RF (DME) adhesive tape 2 X 10 -yard tape See Rx Instructions .ROUTE .MEDSUPPLY Qty: 1 0RF Rx Instructions: As directed (DME) gauze bandage [Band-Aid Gauze Pads] 4 X 4 bandage See Rx Instructions .Route Qty: 25 3RF Rx Instructions: As directed (DME) gauze bandage [Band-Aid Rolled Gauze] 3 X 2.5 -yard bandage See Rx Instructions .Route Qty: 30 3RF Rx Instructions: As directed (DME) off loading shoe Kit See Rx Instructions .Route Qty: 1 0RF Rx Instructions: As directed (DME) diabetic shoe to be fitted See Rx Instructions .Route .MEDSUPPLY Qty: 1 0RF Rx Instructions: As directed (DME) diabetic shoe inserts to be sized See Rx Instructions .Route .MEDSUPPLY Qty: 1 0RF Rx Instructions: As directed albuterol sulfate 90 mcg/actuation HFA aerosol inhaler 2 puff INHALATION Q6H PRN (Reason: Respiratory Distress) 30 Days Qty: 8.5 0RF amlodipine 5 mg Tablet 5 mg PO DAILY Qty: 30 0RF Protocol: Hold for SBP< HOLD for SBP < : 90 cyclobenzaprine 10 mg tablet 10 mg PO Q8H Qty: 20 0RF cephalexin 500 mg capsule 500 mg PO BID 7 Days Qty: 14 0RF mupirocin 2 % ointment 1 appl topical BID 7 Days Qty: 15 0RF cyclobenzaprine 10 mg tablet 10 mg PO TID PRN (Reason: pain, muscle spasm) Qty: 15 0RF (DME) pen needle, diabetic [BD Ultra-Fine Nataliya Pen Needle] 32 gauge x 5/32 needle See Rx Instructions .ROUTE .MEDSUPPLY Qty: 50 3RF Rx Instructions: As directed duloxetine 30 mg capsule,delayed release(DR/EC) 30 mg PO BID 30 Days Qty: 60 2RF tramadol 50 mg tablet 50 mg PO TID PRN (Reason: pain) 10 Days Qty: 30 1RF pregabalin 50 mg capsule 50 mg PO TID 30 Days Qty: 90 0RF (DME) insulin syringe-needle U-100 0.3 mL 31 gauge x 5/16 syringe See Rx Instructions .ROUTE .MEDSUPPLY Qty: 10 Rx Instructions: As directed (DME) lancets 28 gauge misc See Rx Instructions topical .MEDSUPPLY Qty: 100 Rx Instructions: As directed insulin aspart U-100 [Novolog Flexpen U-100 Insulin] 100 unit/mL (3 mL) insulin pen 15 unit subcut TID 30 Days Qty: 15 0RF dress,ointcrk-fbsn-kzgwnck-cmc 4 X 4 bandage See Rx Instructions topical .COMPLEX Qty: 2 0RF Rx Instructions: apply to bed of left foot wound, topically, every other day; Referrals: Physician,Unknown J [Physician] - 1 day Stand Alone Forms: Against Medical Advice
== END 2022-03-30 15:25 | disposition left against medical advice (07) ==
PROVIDERS: Emergency Provider Emergency Medicine; PCP Internal Medicine
DX: R55 Syncope and collapse (principal); S09.90XA Unspecified injury of head, initial encounter; W06.XXXA Fall from bed, initial encounter; I10 Essential (primary) hypertension; E11.9 Type 2 diabetes mellitus without complications; E78.5 Hyperlipidemia, unspecified; E78.00 Pure hypercholesterolemia, unspecified; F17.210 Nicotine dependence, cigarettes, uncomplicated; E66.9 Obesity, unspecified; Y93.89 Activity, other specified; Y92.013 Bedroom of single-family (private) house as the place of occurrence of the external cause; Y99.9 Unspecified external cause status; Z68.35 Body mass index [BMI] 35.0-35.9, adult; Z79.4 Long term (current) use of insulin; Z79.899 Other long term (current) drug therapy
CPT/HCPCS: 70450; 72125; 99282; 99284

== ENCOUNTER 2022-05-28 04:16 | Inpatient (IN) | payer OTHER, SELFPAY ==
--- NOTE | ~2022-05-28 | XR_ITS ---
EXAMINATION: XR FOOT, RIGHT CLINICAL INFORMATION: First and 2nd metatarsal inflamm ?bone erosion COMPARISON: None TECHNIQUE: AP, lateral, and oblique views of the right foot. FINDINGS: Soft tissue swelling is evident at the great toe. No acute fracture or malalignment. No appreciable erosions. Bone mineralization is normal. Bipartite medial hallux sesamoid. Mild osteoarthritis is noted at the first MTP and second MTP joints with small marginal osteophytes. Additional mild osteoarthritis is present at the second toe DIP joint and great toe interphalangeal joint. Type I accessory navicular. No findings of osteomyelitis. XR/XR foot RT 2V IMPRESSION: 1. Mild osteoarthritis in the first and second MTP joints and great toe interphalangeal joint. 2. No appreciable erosions.
--- NOTE | ~2022-05-28 | MR_ITS ---
EXAMINATION: MRI RIGHT FOOT WITHOUT AND WITH CONTRAST. CLINICAL INFORMATION: First and second toe infection. Evaluate for osteomyelitis. COMPARISON: X-ray 05/28/2022 TECHNIQUE: MRI in a high-field magnet without and with contrast. 10 mL Gadavist FINDINGS: There is motion artifact degrading images, limiting evaluation. Technologist notes indicate patient is sleeping. Apparent plantar soft tissue irregularity/ulceration underlying the first MTP joint/first toe.. There is increased T2 signal from edema/cellulitis in the plantar soft tissues. Mild T2 signal in the medial hallux sesamoid, probably degenerative rather than secondary to infection. Mild nonspecific edema in the first distal phalanx, nonspecific, no convincing for osteomyelitis. No MRI findings to suggest definite osteomyelitis in the second toe. There is soft tissue increased T2 signal from edema/cellulitis. No abscess is seen. No additional areas of definite osteomyelitis identified. There is dorsal soft tissue swelling and increased T2 signal from edema/cellulitis.. Increase signal in the intrinsic muscles of foot, which could reflect myositis or sequela of denervation. No appreciable tenosynovitis. Visualized plantar aponeurosis is intact. MR/MR foot RT wo/w con IMPRESSION: 1. Plantar soft tissue irregularity/ulceration underlying the first MTP joint/first toe. Soft tissue edema/cellulitis. No abscess. 2. No convincing MRI findings to suggest osteomyelitis in the first toe. Findings in the medial hallux sesamoid favored degenerative changes rather than osteomyelitis. 3. Soft tissue swelling of the dorsal foot and the first distal with the edema/cellulitis. No abscess. 4. Intrinsic muscle signal changes could reflect myositis or sequela of denervation.
[2022-05-28 04:28] VITALS: BP 143/85; PULSE 107; RESP 18; TEMP 36.6; O2SAT 98; BMI 36.0
[2022-05-28 05:04] VITALS: BP 143/81; PULSE 96; RESP 20; TEMP 37.3; O2SAT 97
--- NOTE | 2022-05-28 05:04 | ED.WOUNDLAC ---
HPI - Wound/Laceration General Chief Complaint: Wound/Laceration Stated Complaint: infection in big toe Time Seen by Provider: 05/28/22 04:57 Source: patient Mode of arrival: ambulatory Limitations: no limitations History of Present Illness HPI narrative: Patient diabetic noncompliant to insulin has not taken insulin for the last few days history of similar it is of left foot comes here for worsening of the callus at the base of right foot with serous discharge between the 1st and 2nd toe no fever no chills patient also had fever earlier today 100.7 Related Data Home Medications Medication Instructions Recorded Confirmed insulin syringe-needle U-100 0.3 #10 ea 06/19/20 03/02/22 mL 31 gauge x 5/16 lancets 28 gauge #100 ea 06/19/20 03/02/22 Previous Rx's Medication Instructions Recorded amlodipine 5 mg tablet 5 mg PO DAILY #30 tabs 05/09/20 insulin syr/ndl U100 half galen 0.3 #100 ea 05/11/20 mL 31 gauge x 5/16 pen needle, diabetic 32 gauge x #50 ea 05/22/2032 (BD Ultra-Fine Nataliya Pen Needle) insulin aspart U-100 100 unit/mL 15 unit (0.15 mL) subcut TID 30 06/19/20 (3 mL) subcutaneous pen (Novo days #15 mL Flexpen U-100 Insulin aspart) sodium chloride 0.9 % irrigation 1 irrig irrigation DAILY PRN wound 07/15/20 solution (Sterile Saline) care #6,000 mL dressing,[id number] See Rx Instructions topical 08/27/20 alginate-carboxymethylcellulose 4 .COMPLEX apply to bed of left foot X 4 wound every other day #2 boxes adhesive tape 1 1/2 X 10 yard #2 ea 10/22/20 gauze bandage 4 1/2 X 147 #48 ea 10/22/20 (Kerlix) gauze bandage 4 X 4 sponge #4 ea 10/22/20 (Kerlix) cyclobenzaprine 10 mg tablet 10 mg PO Q8H #20 tabs 01/06/21 duloxetine 30 mg capsule,delayed 30 mg PO BID 30 days #60 caps 04/23/21 release pregabalin 50 mg capsule 50 mg PO TID 30 days #90 caps 04/23/21 tramadol 50 mg tablet 50 mg PO TID PRN pain 10 days #30 04/23/21 tabs blood sugar diagnostic #100 ea 05/24/21 blood-glucose meter #1 ea 05/24/21 blood sugar diagnostic (FreeStyle #75 ea 05/25/21 Precision Mushtaq Strips) dulaglutide 0.75 mg/0.5 mL 0.75 mg (0.5 mL) subcut QWEEK #2 mL 05/25/21 subcutaneous pen injector (Trulicity) insulin glargine 100 unit/mL (3 30 unit (0.3 mL) subcut BEDTIME 05/25/21 mL) subcutaneous pen (Basaglar #15 mL KwikPen U-100 Insulin) flash glucose scanning reader #1 ea 05/28/21 (FreeStyle Swati 14 Day Williams) flash glucose sensor (FreeStyle 1 ea topical Q2W #2 ea 05/28/21 Swati 14 Day Sensor kit) cyclobenzaprine 10 mg tablet 10 mg PO TID PRN pain, muscle 06/08/21 spasm #15 tabs adhesive tape 2 X 10 yard #1 ea 07/21/21 gauze bandage 3 X 2.5 yard #30 ea 07/21/21 (Band-Aid Rolled Gauze) gauze bandage 4 X 4 (Band-Aid #25 ea 07/21/21 Gauze Pads) off loading shoe #1 ea 07/21/21 cephalexin 500 mg capsule 500 mg PO BID 7 days #14 caps 12/01/21 mupirocin 2 % topical ointment 1 appl topical BID 7 days #15 grams 12/01/21 diabetic shoe #1 ea 03/09/22 diabetic shoe inserts #1 ea 03/09/22 albuterol sulfate 90 mcg/actuation 2 puff inhalation Q6H PRN 04/26/22 aerosol inhaler Respiratory Distress 30 days #8.5 grams albuterol sulfate 90 mcg/actuation 2 puff inhalation Q4-6H PRN 05/25/22 aerosol inhaler (Ventolin HFA) shortness of breath or wheezing #8.5 grams Allergies Allergy/AdvReac Type Severity Reaction Status Date / Time gabapentin AdvReac Intermediate nausea, Verified 03/02/22 13:41 dizziness Review of Systems Review of Systems: Yes all other systems are reviewed and are negative PMFSH Past Medical History Medical History Asthma Benign essential hypertension Callus of foot Callus under metatarsal head Chronic painful diabetic neuropathy Diabetes mellitus Diabetic foot Dry gangrene History of amputation of great toe Hyperlipidemia LDL goal <100 Lumbar degenerative disc disease Neuropathy Obesity (BMI 30-39.9) Osteomyelitis of left foot Pure hypercholesterolemia Type 2 diabetes mellitus with diabetic neuropathy, unspecified Type 2 diabetes mellitus with hyperglycemia, with long-term current use of insulin Umbilical hernia Surgical History H/O hernia repair Status post debridement Status post incision and drainage Status post incision and drainage Family History Family History Father Medical history unknown Mother Asthma Hypertension Diabetes Brother Chronic mental illness Diabetes Social History Social History Household Members: Significant Other Housing: Apartment Do you presently have visiting nurse or other home services: No Alcohol intake: former Patient Tobacco Use Status: Current everyday Tobacco user Cigarettes Per Day: 10 Years Smoked: 30 Smoked in Last 30 Days: Yes Second Hand Smoke Exposure: Yes Substance Use Type: Marijuana Substance Use Frequency: Monthly Last Used Substance: Unknown Any prior treatment program specific to substance use: No Advance Directives: Yes Advance Directives on File: Yes Advance Directives Date on File: 05/30/20 service: No Current occupational status: employed Physical Exam Vital Signs: Vital Signs: Last Vital Signs Temp 99.1 F 05/28/22 05:04 Pulse 96 05/28/22 05:04 Resp 20 05/28/22 05:04 BP 143/81 H 05/28/22 05:04 Pulse Ox 97 05/28/22 05:04 O2 Del Method 05/28/22 05:04 BMI result Body Mass Index 36.0 Appearance: Alert. Oriented X3. No acute distress. Eyes: No pallor or icterus ENT: Pharynx normal. Oral Mucosa moist Neck: Normal inspection. Neck supple. CVS: Normal heart rate and rhythm. Pulses normal. Respiratory: No respiratory distress. Equal air entry bilateral, no wheezing/rales/rhonchi Abdomen: Soft and nontender. Bowel sounds are present, no mass palpable, no CVA tenderness Skin: Skin warm and dry. Normal skin color. Normal skin turgor. Extremities: No lower extremity edema. No calf tenderness, picture of the foot attached callus at base of right greater toe, skin breakdown between the 1st and 2nd toes Neuro: Oriented X 3. No motor deficit. No sensory deficit.No cerebellar signs , cranial nerves II-XII intact Extrem: Other: Medications Administered Discontinued Medications Generic Name Dose Route Start Last Admin Trade Name Freq PRN Reason Stop Dose Admin Piperacillin Sod/Tazobactam 50 mls @ 100 mls/hr 05/28/22 05:06 05/28/22 05:54 Sod 3.375 gm/ Sodium Chloride IV 05/28/22 05:35 100 mls/hr ONCE ONE Administration Sodium Chloride 1,000 mls @ 999 mls/hr 05/28/22 05:42 05/28/22 05:54 Ns IV 05/28/22 06:42 999 mls/hr .Q1H1M ONE Administration Insulin Human Lispro 10 unit 05/28/22 05:42 05/28/22 05:54 Insulin Lispro 100 Unit/Ml 3 Ml Vial SUBCUT 05/28/22 05:43 10 unit ONCE ONE Administration MDM - Wound/Laceration MDM Narrative Medical decision making narrative: Patient clinically diabetic foot with possible osteomyelitis although x-ray does not show any bony erosion but patient has a deep opening between 1st and 2nd toe, started on vanco and Zosyn Lab Data Attestation: I reviewed the patient's lab results. Result diagrams: 05/28/22 05:43 05/28/22 05:43 Labs: Lab Results 05/28/22 05/28/22 05/28/22 Range/Units 05:16 05:42 05:42 WBC (4.8-10.8) X10*3/uL RBC (4.60-5.80) X10*6/uL Hgb (14.0-18.0) g/dl Hct (42.0-52.0) % MCV (80.0-98.0) fL MCH (27.0-33.0) pg MCHC (31.0-36.0) g/dl RDW (11.0-16.0) % Plt Count (160-400) X10*3/uL MPV (9.4-12.4) fL Immature Gran % (Auto) (0.0-0.4) % Neut % (Auto) (45-73) % Lymph % (Auto) (20-40) % [place] % (Auto) (2-11) % Eos % (Auto) (0-4) % Baso % (Auto) (0-2) % Lymph # (Auto) (1.2-4.9) X10*3/uL [place] # (Auto) (0.1-1.2) X10*3/uL Eos # (Auto) (0.0-0.4) X10*3/uL Baso # (Auto) (0.0-0.2) X10*3/uL Abs Immat Gran (auto) (0.00-0.03) X10*3/uL Absolute Neuts (auto) (2.0-8.3) x10*3/uL Absolute Nucleated RBC (0.0-0.012) X10*3/uL Nucleated RBC % (auto) (0.0-0.2) /100WBC ESR (0-15) MM/HR Sodium (135-145) mmol/L Potassium (3.3-5.1) mmol/L Chloride (96-108) mmol/L Carbon Dioxide (22-29) mmol/L Anion Gap (12-20) BUN (9-16) mg/dL Creatinine (0.5-1.4) mg/dL Estim Creat Clear Calc Estimated GFR POC Glucose 343 H (60-115) mg/dL Random Glucose (60-115) mg/dL Lactic Acid 1.8 (0.5-2.0) mmol/L Calcium (8.4-10.2) mg/dL Total Bilirubin (0.0-1.0) mg/dL AST (5-37) U/L ALT (0-40) U/L Alkaline Phosphatase (39-117) U/L C-Reactive Protein (< or = 0.50) mg/dL Total Protein (6.5-8.0) g/dL Albumin (3.5-5.0) g/dL COVID-19 ([facility]) Negative (Negative) COVID-19 Clin Com See Note 05/28/22 05/28/22 05/28/22 Range/Units 05:43 05:43 05:43 WBC 10.1 (4.8-10.8) X10*3/uL RBC 3.98 L (4.60-5.80) X10*6/uL Hgb 10.6 L (14.0-18.0) g/dl Hct 33.6 L (42.0-52.0) % MCV 84.4 (80.0-98.0) fL MCH 26.6 L (27.0-33.0) pg MCHC 31.5 (31.0-36.0) g/dl RDW 12.5 (11.0-16.0) % Plt Count 254 (160-400) X10*3/uL MPV 10.8 (9.4-12.4) fL Immature Gran % (Auto) 0.4 (0.0-0.4) % Neut % (Auto) 74.9 H (45-73) % Lymph % (Auto) 11.5 L (20-40) % [place] % (Auto) 11.0 (2-11) % Eos % (Auto) 1.8 (0-4) % Baso % (Auto) 0.4 (0-2) % Lymph # (Auto) 1.2 (1.2-4.9) X10*3/uL [place] # (Auto) 1.1 (0.1-1.2) X10*3/uL Eos # (Auto) 0.2 (0.0-0.4) X10*3/uL Baso # (Auto) 0.0 (0.0-0.2) X10*3/uL Abs Immat Gran (auto) 0.04 H (0.00-0.03) X10*3/uL Absolute Neuts (auto) 7.6 (2.0-8.3) x10*3/uL Absolute Nucleated RBC 0.000 (0.0-0.012) X10*3/uL Nucleated RBC % (auto) 0.0 (0.0-0.2) /100WBC ESR 88 H (0-15) MM/HR Sodium 138 (135-145) mmol/L Potassium 4.1 (3.3-5.1) mmol/L Chloride 105 (96-108) mmol/L Carbon Dioxide 25 (22-29) mmol/L Anion Gap 12 (12-20) BUN 22 H (9-16) mg/dL Creatinine 1.70 H (0.5-1.4) mg/dL Estim Creat Clear Calc 59.1 Estimated GFR 43 POC Glucose (60-115) mg/dL Random Glucose 377 H* (60-115) mg/dL Lactic Acid (0.5-2.0) mmol/L Calcium 8.0 L D (8.4-10.2) mg/dL Total Bilirubin 0.2 (0.0-1.0) mg/dL AST 14 (5-37) U/L ALT 13 (0-40) U/L Alkaline Phosphatase 94 (39-117) U/L C-Reactive Protein 9.60 H (< or = 0.50) mg/dL Total Protein 5.7 L (6.5-8.0) g/dL Albumin 3.0 L (3.5-5.0) g/dL COVID-19 ([facility]) (Negative) COVID-19 Clin Com Discharge Plan Discharge Clinical Impression: Diabetic ulcer of foot associated with diabetes mellitus due to underlying condition, with fat layer exposed, Diabetes mellitus Patient Disposition: Admitted As Inpatient
[2022-05-28 05:20] LABS: Glucose, Whole Blood 343 mg/dL (60-115)
[2022-05-28 05:48] LABS: MANUAL DIFF FLAG NO
[2022-05-28 05:49] LABS: Basophils Percent Auto 0.4 % (0-2); Eosinophils Absolute Auto 0.2 X10*3/uL (0.0-0.4); Eosinophils Percent Auto 1.8 % (0-4); Hematocrit 33.6 % (42.0-52.0); Hemoglobin 10.6 g/dl (14.0-18.0); Imm Gran Abs Auto 0.04 X10*3/uL (0.00-0.03); Imm Gran Pct Auto 0.4 % (0.0-0.4); Lymphocytes Absolute Auto 1.2 X10*3/uL (1.2-4.9); Lymphocytes Percent Auto 11.5 % (20-40); Mean Corpuscular HGB Conc 31.5 g/dl (31.0-36.0); Mean Corpuscular Hemoglobin 26.6 pg (27.0-33.0); Mean Corpuscular Volume 84.4 fL (80.0-98.0); Mean Platelet Volume 10.8 fL (9.4-12.4); Monocytes Absolute Auto 1.1 X10*3/uL (0.1-1.2); Neutrophils Absolute Auto 7.6 x10*3/uL (2.0-8.3); Neutrophils Percent Auto 74.9 % (45-73); Platelet Count 254 X10*3/uL (160-400); Red Blood Count 3.98 X10*6/uL (4.60-5.80); Red Cell Distribution Width 12.5 % (11.0-16.0); White Blood Count 10.1 X10*3/uL (4.8-10.8)
[2022-05-28] MEDS: Piperacillin Sodium/Tazobactam 3.375 GM in 0.9 % Sodium Chloride 50 ML IV ×4 (05:54→22:57)
[2022-05-28] MEDS: 0.9 % Sodium Chloride 1,000 ML 999 ML IV (05:54)
[2022-05-28] MEDS: Insulin Lispro 100 UNIT/ML 3 ML VIAL 10 UNIT SUBCUT (05:54)
[2022-05-28 06:02] LABS: COVID-19 Test Negative (Negative)
[2022-05-28 06:04] LABS: Lactic Acid 1.8 mmol/L (0.5-2.0)
[2022-05-28 06:25] LABS: Erythrocyte Sedimentation Rate 88 MM/HR (0-15)
[2022-05-28 06:27] LABS: Alanine Aminotransferase 13 U/L (0-40); Alkaline Phosphatase 94 U/L (39-117); Anion Gap 12 (12-20); Aspartate Amino Transferase 14 U/L (5-37); Bilirubin Total 0.2 mg/dL (0.0-1.0); Blood Urea Nitrogen 22 mg/dL (9-16); Carbon Dioxide 25 mmol/L (22-29); Chloride 105 mmol/L (96-108); Creatinine Clr Calc Pharmacy 59.1; Estimated Glomerular Filt Rate 43; Glucose Random 377 mg/dL (60-115); Potassium 4.1 mmol/L (3.3-5.1); Sodium 138 mmol/L (135-145); Total Protein 5.7 g/dL (6.5-8.0)
[2022-05-28 07:15] LABS: Glucose, Whole Blood 206 mg/dL (60-115)
[2022-05-28 07:21] VITALS: BP 133/88; PULSE 97; RESP 18; TEMP 36.8; O2SAT 95
[2022-05-28] MEDS: vancomycin HCL 1,000 MG in 0.9 % Sodium Chloride 250 ML 270 MG IV ×2 (07:28→08:59)
--- NOTE | 2022-05-28 08:33 | PM.IMHP ---
History of Present Illness Date of Service: 05/28/22 Attending physician on admission: Gabriel Rossi Chief Complaint: foot pain This is a 51-year-old male with history of diabetes who presents to the emergency department with right foot pain. Patient states over the past several days he has had increasing pain and swelling in his right great toe. He has had long-term issues with calluses on the bottom of both of his feet. He follows with Dr. Keane for this problem and has required debridement of these calluses in the past. For the past 3 days he has had intermittent fever and chills and he has noticed that his great toe has become painful and swollen and increasingly red. He has not noticed any drainage from the wound. In the emergency department he was afebrile, with no leukocytosis. Lab work revealed elevated ESR of 88. Plain film x-ray was unremarkable. He was treated with broad-spectrum antibiotics for diabetic foot ulcer and the decision was made to admit him to the hospital for further management. Review of Systems Review of Systems: Yes all other systems are reviewed and are negative Constitutional: Constitutional: Reports chills and Reports fever(s) Cardiovascular: Cardiovascular: Denies chest pain, Denies palpitations and Denies dyspnea Respiratory: Respiratory: Denies cough and Denies dyspnea Gastrointestinal: Gastrointestinal: Denies abdominal pain, Denies nausea and Denies vomiting Endocrine: Endocrine: Denies palpitations [facility] Medical History Asthma Benign essential hypertension Callus of foot Callus under metatarsal head Chronic painful diabetic neuropathy Diabetes mellitus Diabetic foot Dry gangrene History of amputation of great toe Hyperlipidemia LDL goal <100 Lumbar degenerative disc disease Neuropathy Obesity (BMI 30-39.9) Osteomyelitis of left foot Pure hypercholesterolemia Type 2 diabetes mellitus with diabetic neuropathy, unspecified Type 2 diabetes mellitus with hyperglycemia, with long-term current use of insulin Umbilical hernia Family History Father Medical history unknown Mother Asthma Hypertension Diabetes Brother Chronic mental illness Diabetes Surgical History H/O hernia repair Status post debridement Status post incision and drainage Status post incision and drainage Social History Household Members: Significant Other Housing: Apartment Do you presently have visiting nurse or other home services: No Alcohol intake: former Patient Tobacco Use Status: Current everyday Tobacco user Cigarettes Per Day: 10 Years Smoked: 30 Smoked in Last 30 Days: Yes Second Hand Smoke Exposure: Yes Substance Use Type: Marijuana Substance Use Frequency: Monthly Last Used Substance: Unknown Any prior treatment program specific to substance use: No Advance Directives: Yes Advance Directives on File: Yes Advance Directives Date on File: 05/30/20 service: No Current occupational status: employed Meds Allergies Allergy/AdvReac Type Severity Reaction Status Date / Time gabapentin AdvReac Intermediate nausea, Verified 03/02/22 13:41 dizziness Active Medications: Current Medications Acetaminophen (Acetaminophen 325 Mg Tablet) 650 mg PO Q6H PRN PRN Reason: Pain, Mild (Pain Scale 1-3) Dextrose (Dextrose 50 % 25 Gm/50 Ml Syringe) 25 gm IVPUSH Q15M PRN; Protocol PRN Reason: per Hypoglycemia Standing Ord. Docusate Sodium (Docusate Sodium 100 Mg Capsule) 100 mg PO DAILY SUPRIYA Enoxaparin Sodium (Enoxaparin Sodium 40 Mg/0.4 Ml Syringe) 40 mg SUBCUT Q24H SUPRIYA Glucose (Glucose Gel 15 Gm Gel..Gram.) 15 gm PO Q15M PRN; Protocol PRN Reason: per Hypoglycemia Standing Ord. Vancomycin HCl 1,000 mg/ (Sodium Chloride) 270 mls @ 270 mls/hr IV ONCE ONE Stop: 05/28/22 08:59 Piperacillin Sod/Tazobactam (Sod 3.375 gm/ Sodium Chloride) 50 mls @ 100 mls/hr IV Q6H SUPRIYA Insulin Human Lispro (Insulin Lispro 100 Unit/Ml 3 Ml Vial) 0 unit SUBCUT QIDACHS SUPRIYA; Protocol Melatonin (Melatonin 3 Mg Tablet) 3 mg PO BEDTIME PRN PRN Reason: Insomnia Ondansetron HCl (Ondansetron Hcl 4 Mg/2 Ml Vial) 4 mg IVPUSH Q8H PRN PRN Reason: Nausea and Vomiting Oxycodone HCl (Oxycodone Hcl Immed Release 5 Mg Tablet) 5 mg PO Q6H PRN PRN Reason: Pain, Moderate (Pain Scale 4-6 Pharmacy Consult (Consult Rx Vancomycin Dosing) 1 each MISCELLANE DAILY PRN PRN Reason: Consult order Pharmacy Consult (Consult Rx Perform Med Rec) 1 each MISCELLANE ONCE PRN PRN Reason: Consult order Senna (Sennosides 8.6 Mg Tablet) 17.2 mg PO BEDTIME PRN PRN Reason: Constipation Sodium Chloride (0.9 % Sodium Chloride Flush 3 Ml Syringe) 3 ml IVFLUSH QSHIFT [facility] Home Medications Medication Instructions Recorded Confirmed Last Taken Type insulin syringe-needle U-100 0.3 #10 ea 06/19/20 03/02/22 Unknown History mL 31 gauge x 16 lancets 28 gauge #100 ea 06/19/20 03/02/22 Unknown History ibuprofen 200 mg tablet 200 mg PO Q6H PRN Pain 05/28/22 05/28/22 Unknown History Physical Exam Vital Signs and Narrative: Vital Signs: Last Vital Signs Temp 98.3 F 05/28/22 07:21 Pulse 97 05/28/22 07:21 Resp 18 05/28/22 07:21 BP 133/88 05/28/22 07:21 Pulse Ox 95 05/28/22 07:21 O2 Del Method 05/28/22 07:21 BMI result Body Mass Index 36.0 Const: General: cooperative, comfortable, alert and awake Nutritional Appearance: overweight Orientation/consciousness: patient oriented x3 HEENT: Other: poor dentition Resp: Other: scattered expiratory wheezes Effort & Inspection: normal respiratory effort and able to speak in complete sentences Cardio: Rate: regular rate Heart sounds: S1 normal heart sound present and S2 normal heart sound present GI: Inspection: No distended Palpation (GI): Soft to palpation and nontender Skin: Other: Neuro: General: patient oriented x3 and CN's II-XI intact bilaterally Extrem: Other: Able to move all 4 extremities spontaneously General: Yes no pedal edema Results Labs CBC and Chem 7: 05/28/22 05:43 05/28/22 05:43 Labs: Laboratory Results - last 24 hr 05/28/22 05/28/22 05/28/22 05:16 05:42 05:42 MCV MCH MCHC RDW Plt Count MPV Immature Gran % (Auto) Neut % (Auto) Lymph % (Auto) Martin % (Auto) Eos % (Auto) Baso % (Auto) Lymph # (Auto) Martin # (Auto) Eos # (Auto) Baso # (Auto) Abs Immat Gran (auto) Absolute Neuts (auto) Absolute Nucleated RBC Nucleated RBC % (auto) ESR Anion Gap Estim Creat Clear Calc Estimated GFR POC Glucose 343 H Random Glucose Lactic Acid 1.8 Calcium Total Bilirubin AST ALT Alkaline Phosphatase C-Reactive Protein Total Protein Albumin COVID-19 ([facility]) Negative COVID-19 Clin Com See Note 05/28/22 05/28/22 05/28/22 05:43 05:43 05:43 MCV 84.4 MCH 26.6 L MCHC 31.5 RDW 12.5 Plt Count 254 MPV 10.8 Immature Gran % (Auto) 0.4 Neut % (Auto) 74.9 H Lymph % (Auto) 11.5 L Martin % (Auto) 11.0 Eos % (Auto) 1.8 Baso % (Auto) 0.4 Lymph # (Auto) 1.2 Martin # (Auto) 1.1 Eos # (Auto) 0.2 Baso # (Auto) 0.0 Abs Immat Gran (auto) 0.04 H Absolute Neuts (auto) 7.6 Absolute Nucleated RBC 0.000 Nucleated RBC % (auto) 0.0 ESR 88 H Anion Gap 12 Estim Creat Clear Calc 59.1 Estimated GFR 43 POC Glucose Random Glucose 377 H* Lactic Acid Calcium 8.0 L D Total Bilirubin 0.2 AST 14 ALT 13 Alkaline Phosphatase 94 C-Reactive Protein 9.60 H Total Protein 5.7 L Albumin 3.0 L COVID-19 ([facility]) COVID-19 Clin Com 05/28/22 07:11 MCV MCH MCHC RDW Plt Count MPV Immature Gran % (Auto) Neut % (Auto) Lymph % (Auto) Martin % (Auto) Eos % (Auto) Baso % (Auto) Lymph # (Auto) Martin # (Auto) Eos # (Auto) Baso # (Auto) Abs Immat Gran (auto) Absolute Neuts (auto) Absolute Nucleated RBC Nucleated RBC % (auto) ESR Anion Gap Estim Creat Clear Calc Estimated GFR POC Glucose 206 H Random Glucose Lactic Acid Calcium Total Bilirubin AST ALT Alkaline Phosphatase C-Reactive Protein Total Protein Albumin COVID-19 ([facility]) COVID-19 Clin Com Imaging Radiologist's Impressions: Impressions Foot X-Ray 05/28/22 06:15 IMPRESSION: 1. Mild osteoarthritis in the first and second MTP joints and great toe interphalangeal joint. 2. No appreciable erosions. Assessment and Plan (1) Callus under metatarsal head: Status: Acute Plan This is a 51-year-old male history of diabetes, hypertension, hyperlipidemia, chronic foot ulcers who presents to the emergency department with increasing redness pain and swelling of his right great toe right great toe diabetic foot ulcer concern for osteomyelitis given elevated ESR - IV vancomycin, Zosyn - MRI - surgical consult DM per pharmacy has not been filling medication follow POCs SSI, ADA diet CKD3 pt denies known h/o CKD but creatinine within previous baseine follow BMP tobacco dependence smoking cessation advised NRT DVT ppx - lovenox patient will likely require 2 midnight stay in the hospital for management of diabetic foot wound and possible osteomyelitis requiring IV antibiotics, MRI and surgical evaluation Quality Stroke Does the patient have a stroke diagnosis?: No VTE Prior VTE?: No VTE Risk Level:: Medical - moderate - high VTE Device Contraindication: N/A - Device Ordered VTE Drug Contraindication: N/A - Med Ordered
--- NOTE | 2022-05-28 08:46 | PHA.MEDREC ---
Pharmacy Consult ? Medication Reconciliation Pharmacy has completed the medication reconciliation. Patient states they have not taken any medications other than albuterol and prn ibuprofen recently. Stopped filling diabetes medications a year ago. Patient claims their PCP told them to stop taking medications because they were experiencing side effects of HBP, nausea, and dizziness.
--- NOTE | 2022-05-28 09:08 | PM.CNGS ---
History of Present Illness Consult details Consult date: 05/28/22 Reason for consult: other (recurring foot callus) Requesting physician: Gunjan Rose Narrative: The patient is a 51-year-old gentleman with a history of poorly controlled type 2 diabetes, obesity, hypertension, diabetic foot complications who is in the care of Dr. Keane due to chronic diabetic foot problems & poor compliance/smoking. Patient is admitted to the hospitalist service due to callus and wound problems involving both feet. Review of Systems Review of Systems: Yes all other systems are reviewed and are negative Constitutional: Constitutional: Reports as per [facility] Past Medical History Medical History Asthma Benign essential hypertension Callus of foot Callus under metatarsal head Chronic painful diabetic neuropathy Diabetes mellitus Diabetic foot Dry gangrene History of amputation of great toe Hyperlipidemia LDL goal <100 Lumbar degenerative disc disease Neuropathy Obesity (BMI 30-39.9) Osteomyelitis of left foot Pure hypercholesterolemia Type 2 diabetes mellitus with diabetic neuropathy, unspecified Type 2 diabetes mellitus with hyperglycemia, with long-term current use of insulin Umbilical hernia Family History Family History Father Medical history unknown Mother Asthma Hypertension Diabetes Brother Chronic mental illness Diabetes Surgical History Surgical History H/O hernia repair Status post debridement Status post incision and drainage Status post incision and drainage Social History Social History Household Members: Significant Other Housing: Apartment Do you presently have visiting nurse or other home services: No Alcohol intake: former Patient Tobacco Use Status: Current everyday Tobacco user Cigarettes Per Day: 10 Years Smoked: 30 Smoked in Last 30 Days: Yes Second Hand Smoke Exposure: Yes Substance Use Type: Marijuana Substance Use Frequency: Monthly Last Used Substance: Unknown Any prior treatment program specific to substance use: No Advance Directives: Yes Advance Directives on File: Yes Advance Directives Date on File: 05/30/20 service: No Current occupational status: employed Meds Allergies Allergy/AdvReac Type Severity Reaction Status Date / Time gabapentin AdvReac Intermediate nausea, Verified 03/02/22 13:41 dizziness Active Medications: Current Medications Acetaminophen (Acetaminophen 325 Mg Tablet) 650 mg PO Q6H PRN PRN Reason: Pain, Mild (Pain Scale 1-3) Albuterol/Ipratropium (Albuterol/Iprat 2.5/0.5mg 3 Ml Ampul.Neb) 3 ml INHALE RQ6H PRN PRN Reason: Shortness of Breath/Wheezing Dextrose (Dextrose 50 % 25 Gm/50 Ml Syringe) 25 gm IVPUSH Q15M PRN; Protocol PRN Reason: per Hypoglycemia Standing Ord. Docusate Sodium (Docusate Sodium 100 Mg Capsule) 100 mg PO DAILY [facility] Enoxaparin Sodium (Enoxaparin Sodium 40 Mg/0.4 Ml Syringe) 40 mg SUBCUT Q24H [facility] Glucose (Glucose Gel 15 Gm Gel..Gram.) 15 gm PO Q15M PRN; Protocol PRN Reason: per Hypoglycemia Standing Ord. Piperacillin Sod/Tazobactam (Sod 3.375 gm/ Sodium Chloride) 50 mls @ 100 mls/hr IV Q6H [facility] Insulin Human Lispro (Insulin Lispro 100 Unit/Ml 3 Ml Vial) 0 unit SUBCUT QIDACHS [facility]; Protocol Melatonin (Melatonin 3 Mg Tablet) 3 mg PO BEDTIME PRN PRN Reason: Insomnia Nicotine (Nicotine 14 Mg Patch.Td24) 14 mg TRANSDERMA DAILY [facility] Ondansetron HCl (Ondansetron Hcl 4 Mg/2 Ml Vial) 4 mg IVPUSH Q8H PRN PRN Reason: Nausea and Vomiting Oxycodone HCl (Oxycodone Hcl Immed Release 5 Mg Tablet) 5 mg PO Q6H PRN PRN Reason: Pain, Moderate (Pain Scale 4-6 Pharmacy Consult (Consult Rx Vancomycin Dosing) 1 each MISCELLANE DAILY PRN PRN Reason: Consult order Pharmacy Consult (Consult Rx Perform Med Rec) 1 each MISCELLANE ONCE PRN PRN Reason: Consult order Senna (Sennosides 8.6 Mg Tablet) 17.2 mg PO BEDTIME PRN PRN Reason: Constipation Sodium Chloride (0.9 % Sodium Chloride Flush 3 Ml Syringe) 3 ml IVFLUSH QSHIFT [facility] Home Medications Medication Instructions Recorded Confirmed Last Taken Type insulin syringe-needle U-100 0.3 #10 ea 06/19/20 03/02/22 Unknown History mL 31 gauge x /16 lancets 28 gauge #100 ea 06/19/20 03/02/22 Unknown History ibuprofen 200 mg tablet 200 mg PO Q6H PRN Pain 05/28/22 05/28/22 Unknown History Physical Exam Vital Signs: Vital Signs: Last Vital Signs Temp 98.3 F 05/28/22 07:21 Pulse 97 05/28/22 07:21 Resp 18 05/28/22 07:21 BP 133/88 05/28/22 07:21 Pulse Ox 95 05/28/22 07:21 O2 Del Method 05/28/22 07:21 BMI result Body Mass Index 36.0 The patient is resting comfortably The right great toe is surgically absent and there was erythema Right dorsalis pedis is palpable The left plantar area of the foot has callus and an open sore with no crepitance Left dorsalis pedis is palpable Results Labs Result diagrams: 05/28/22 05:43 05/28/22 05:43 Labs: Abnormal lab results 05/28/22 05/28/22 05/28/22 Range/Units 05:16 05:43 05:43 RBC 3.98 L (4.60-5.80) X10*6/uL Hgb 10.6 L (14.0-18.0) g/dl Hct 33.6 L (42.0-52.0) % MCH 26.6 L (27.0-33.0) pg Neut % (Auto) 74.9 H (45-73) % Lymph % (Auto) 11.5 L (20-40) % Abs Immat Gran (auto) 0.04 H (0.00-0.03) X10*3/uL ESR 88 H (0-15) MM/HR BUN (9-16) mg/dL Creatinine (0.5-1.4) mg/dL POC Glucose 343 H (60-115) mg/dL Random Glucose (60-115) mg/dL Calcium (8.4-10.2) mg/dL C-Reactive Protein (< or = 0.50) mg/dL Total Protein (6.5-8.0) g/dL Albumin (3.5-5.0) g/dL 05/28/22 05/28/22 Range/Units 05:43 07:11 RBC (4.60-5.80) X10*6/uL Hgb (14.0-18.0) g/dl Hct (42.0-52.0) % MCH (27.0-33.0) pg Neut % (Auto) (45-73) % Lymph % (Auto) (20-40) % Abs Immat Gran (auto) (0.00-0.03) X10*3/uL ESR (0-15) MM/HR BUN 22 H (9-16) mg/dL Creatinine 1.70 H (0.5-1.4) mg/dL POC Glucose 206 H (60-115) mg/dL Random Glucose 377 H* (60-115) mg/dL Calcium 8.0 L D (8.4-10.2) mg/dL C-Reactive Protein 9.60 H (< or = 0.50) mg/dL Total Protein 5.7 L (6.5-8.0) g/dL Albumin 3.0 L (3.5-5.0) g/dL Short CBC 05/28/22 Range/Units 05:43 WBC 10.1 (4.8-10.8) X10*3/uL Hgb 10.6 L (14.0-18.0) g/dl Hct 33.6 L (42.0-52.0) % Plt Count 254 (160-400) X10*3/uL BMP 05/28/22 05:43 Sodium 138 Potassium 4.1 Chloride 105 Carbon Dioxide 25 BUN 22 H Creatinine 1.70 H Calcium 8.0 L D Liver Function 05/28/22 Range/Units 05:43 Total Bilirubin 0.2 (0.0-1.0) mg/dL AST 14 (5-37) U/L ALT 13 (0-40) U/L Alkaline Phosphatase 94 (39-117) U/L Albumin 3.0 L (3.5-5.0) g/dL All other labs normal. Assessment and Plan (1) Diabetic foot: Status: Acute (2) Callus of foot: Status: Acute (3) Callus under metatarsal head: Status: Acute (4) History of amputation of great toe: Status: Acute (5) Pure hypercholesterolemia: Status: Acute (6) Lumbar degenerative disc disease: Status: Acute (7) Chronic painful diabetic neuropathy: Status: Acute (8) Neuropathy: Status: Acute (9) Status post amputation of left great toe: Status: Acute (10) Diabetic ulcer of foot associated with diabetes mellitus due to underlying condition, with fat layer exposed: Status: Acute (11) Obesity: Status: Acute (12) Smoker: Status: Acute (13) Osteomyelitis of ankle or foot, acute: Qualifiers: Laterality: left Qualified Code(s): M86.172 - Other acute osteomyelitis, left ankle and foot Status: Acute (14) Type 2 diabetes mellitus with hyperglycemia, with long-term current use of insulin: Status: Acute (15) Type 2 diabetes mellitus with diabetic neuropathy, unspecified: Qualifiers: Diabetes mellitus termite control representative insulin use: with usp use Qualified Code(s): E11.40 - Type 2 diabetes mellitus with diabetic neuropathy, unspecified; Z79.4 - MCFP (current) use of insulin Status: Acute Plan Diagnostic imaging pending Continue present management. Will review with Dr. Keane on Monday. Procedures Date of Service Date of Service: 05/28/22
[2022-05-28] MEDS: Enoxaparin Sodium 40 MG/0.4 ML SYRINGE SUBCUT (09:20)
[2022-05-28] MEDS: Docusate Sodium 100 MG CAPSULE PO (09:20)
[2022-05-28] MEDS: Nicotine 14 MG PATCH.TD24 TRANSDERMA (09:23)
[2022-05-28 09:52] LABS: Estimated Average Glucose 240 mg/dL
[2022-05-28 10:43] VITALS: BP 167/97; PULSE 86; RESP 18; O2SAT 96
[2022-05-28 14:50] LABS: Glucose, Whole Blood 189 mg/dL (60-115)
--- NOTE | 2022-05-28 16:22 | PHA.PROG ---
Admission Date/Time: May 28, 2022 08:25 Indication: SKIN AND SKIN STRUCTURE Weight in k.326 kg Adjusted body weight in K.3 Jen[place]ones body weight in Kg: Obesity Dosing Indication % IBW:57% OVERWEIGHT Serum Creatinine - Last 168 Hours 05/28/22 05:43 Creatinine 1.70 H Estimated CrCl and GFR - Last 168 Hours 05/28/22 05:43 Estim Creat Clear Calc 59.1 Estimated GFR 43 Vancomycin Loading Dose: 2000 MG Current Vancomycin Dosing Regimen:1250 MG Q 24 HOURS Vancomycin Monitoring using AUC goal of 400 - 600 range with trough as surrogate marker: Date and Time for next Vancomycin Level to be drawn: WILL CHECK A LEVEL AFTER 2 DOSES Pharmacist Comments on Vancomycin Plan:PREDICTED AUC OF 545 Vancomycin dosing will take advantage of Crossfader as a clinical decision support tool that uses Bayesian modeling to calculate individual patient's pharmacokinetic parameters and forecast the patient's drug concentration time course with the target goal AUC 24 range of 400 - 600 mg/L/hr.
[2022-05-28 18:22] LABS: Glucose, Whole Blood 169 mg/dL (60-115)
[2022-05-28] MEDS: Insulin Lispro 100 UNIT/ML 3 ML VIAL SUBCUT ×2 (18:53→22:48)
[2022-05-28 22:17] VITALS: PULSE 101; RESP 16; O2SAT 98
[2022-05-28] MEDS: Albuterol/Iprat 2.5/0.5MG 3 ML AMPUL.NEB INHALE (22:17)
[2022-05-28 22:40] LABS: Glucose, Whole Blood 226 mg/dL (60-115)
[2022-05-28 23:41] VITALS: BP 170/80; PULSE 95; RESP 20; TEMP 36.9; O2SAT 95
[2022-05-29] MEDS: Piperacillin Sodium/Tazobactam 3.375 GM in 0.9 % Sodium Chloride 50 ML IV (05:35)
[2022-05-29 06:23] LABS: Hemoglobin 10.7 g/dl (14.0-18.0); Mean Corpuscular HGB Conc 31.5 g/dl (31.0-36.0); Mean Corpuscular Hemoglobin 26.4 pg (27.0-33.0); Mean Platelet Volume 10.9 fL (9.4-12.4); Platelet Count 252 X10*3/uL (160-400); Red Blood Count 4.05 X10*6/uL (4.60-5.80); Red Cell Distribution Width 12.4 % (11.0-16.0); White Blood Count 7.7 X10*3/uL (4.8-10.8)
[2022-05-29 06:47] LABS: Anion Gap 12 (12-20); Blood Urea Nitrogen 19 mg/dL (9-16); Calcium 7.8 mg/dL (8.4-10.2); Carbon Dioxide 25 mmol/L (22-29); Chloride 106 mmol/L (96-108); Creatinine Clr Calc Pharmacy 75.6; Estimated Glomerular Filt Rate 57; Glucose Random 238 mg/dL (60-115); Potassium 4.3 mmol/L (3.3-5.1); Sodium 139 mmol/L (135-145)
[2022-05-29 07:30] VITALS: BP 178/88; PULSE 88; RESP 20; TEMP 36.8; O2SAT 96
--- NOTE | 2022-05-29 07:58 | PC.NURSE ---
patient states wants to leave AMA, no specific reason given, no complaints, states will go see his doctor tomorrow. 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 Patient signed AMA form, is alert and oriented, aware of risks of leaving AMA, IV out. left accompanied by his girlfriend.
[2022-05-29 07:59] LABS: Glucose, Whole Blood 266 mg/dL (60-115)
--- NOTE | 2022-05-29 10:27 | PM.DS ---
DS: Providers Provider Date of Service: 05/29/22 Date of admission: 05/28/22 08:25 Date of discharge: 05/29/22 Primary care physician: Gabe Chisholm MD Consults: 05/28/22 08:55 Consult to General Surgery Routine Consulting Provider: Georges Cordoba Reason for consultation: diabetic foot wound Has provider been notified: No [facility]: Gunjan Rose DS: Diagnosis Discharge Diagnosis (1) Callus under metatarsal head: Status: Acute DS: Summary Hospital Course Hospital Course: From H&P on day of admission This is a 51-year-old male with history of diabetes who presents to the emergency department with right foot pain.? Patient states over the past several days he has had increasing pain and swelling in his right great toe.? He has had long-term issues with calluses on the bottom of both of his feet.? He follows with Dr. Keane for this problem and has required debridement of these calluses in the past. For the past 3 days he has had intermittent fever and chills and he has noticed that his great toe has become painful and swollen and increasingly red. He has not noticed any drainage from the wound. In the emergency department he was afebrile, with no leukocytosis.? Lab work revealed elevated ESR of 88.? Plain film x-ray was unremarkable. ? He was treated with broad-spectrum antibiotics for diabetic foot ulcer and the decision was made to admit him to the hospital for further management. Patient was admitted for right great toe diabetic foot infection. He was started on broad-spectrum antibiotics. He underwent MRI of the right foot which did not show evidence of osteomyelitis. Nurse called that he wanted to leave against medical advice, She requested that he wait for evaluation. He was awake, alert and oriented and decided to leave prior to evaluation by this provider. Recommend outpatient follow up with PCP and wound care. Discharge dx - right foot diabetic foot wound/cellulitis Time Spent with Patient Time attestation: Total time spent providing and/or coordinating discharge services: Discharge coordination time: Greater than 30 minutes Quality: Safe Use of Opioids Does Pt have an Active Cancer Diagnosis on the Problem List?: No Quality: Stroke Does the patient have a stroke diagnosis?: No Physical Exam Vital Signs: Vital Signs: Last Vital Signs Temp 98.2 F 05/29/22 07:30 Pulse 88 05/29/22 07:30 Resp 20 05/29/22 07:30 BP 178/88 H 05/29/22 07:30 Pulse Ox 96 05/29/22 07:30 O2 Del Method 05/29/22 07:30 BMI result Body Mass Index 36.0 DS: Data Data Completed and Pending Completed studies during hospitalization [Text1]: Procedures Detachment at Left 1st Toe, Complete, Open Approach (08/12/20) Detachment at Left 2nd Toe, Complete, Open Approach (08/12/20) Excision of Left Foot Subcutaneous Tissue and Fascia, Open Approach (05/26/20) Extraction of Left Foot Skin, External Approach (05/05/20) Insertion of Infusion Device into Superior Vena Cava, Percutaneous Approach (05/05/20) Ultrasonography of Superior Vena Cava, Guidance (05/05/20) Labs on day of discharge: Laboratory Results - last 24 hr 05/28/22 05/28/22 05/28/22 14:47 18:19 22:35 WBC RBC Hgb Hct MCV MCH MCHC RDW Plt Count MPV Absolute Nucleated RBC Nucleated RBC % (auto) Sodium Potassium Chloride Carbon Dioxide Anion Gap BUN Creatinine Estim Creat Clear Calc Estimated GFR POC Glucose 189 H 169 H 226 H Random Glucose Calcium 05/29/22 05/29/22 05/29/22 06:02 06:02 07:33 WBC 7.7 RBC 4.05 L Hgb 10.7 L Hct 34.0 L MCV 84.0 MCH 26.4 L MCHC 31.5 RDW 12.4 Plt Count 252 MPV 10.9 Absolute Nucleated RBC 0.000 Nucleated RBC % (auto) 0.0 Sodium 139 Potassium 4.3 Chloride 106 Carbon Dioxide 25 Anion Gap 12 BUN 19 H Creatinine 1.33 Estim Creat Clear Calc 75.6 Estimated GFR 57 POC Glucose 266 H Random Glucose 238 H Calcium 7.8 L Preliminary micro results at discharge 05/28/22 05:49 Blood Culture - Preliminary Blood - Venous No growth after 24 hours. 05/28/22 05:49 Blood Culture - Preliminary Blood - Venous No growth after 24 hours. Discharge Plan Discharge Patient Disposition: Left Against Medical Advice Discharge Diagnosis: right foot diabetic wound elevated blood pressure Referrals: Gabe Chisholm MD [Primary Care Provider] - 1 Week Discharge Medications: No Action (DME) insulin syr/ndl U100 half galen 0.3 mL 31 gauge x 5/16 syringe See Rx Instructions .ROUTE .MEDSUPPLY Qty: 100 0RF Rx Instructions: As directed - covering for DR. SILVESTRE HILL (DME) Kerlix 4 X 4 sponge See Rx Instructions .ROUTE .MEDSUPPLY Qty: 4 1RF Rx Instructions: 4 boxes of 4x4 kerlix fluff gauze - apply to wound daily (DME) Kerlix 4 1/2 X 147 bandage See Rx Instructions .ROUTE .MEDSUPPLY Qty: 48 1RF Rx Instructions: apply to wound daily (DME) adhesive tape 1 1/2 X 10 -yard tape See Rx Instructions .ROUTE .MEDSUPPLY Qty: 2 1RF Rx Instructions: apply to wound daily (DME) blood sugar diagnostic Strip See Rx Instructions .ROUTE .MEDSUPPLY Qty: 100 0RF Rx Instructions: As directed (DME) blood-glucose meter Kit See Rx Instructions .ROUTE .MEDSUPPLY Qty: 1 0RF Rx Instructions: As directed (DME) FreeStyle Precision Mushtaq Strips Strip See Rx Instructions .ROUTE .MEDSUPPLY Qty: 75 6RF Rx Instructions: As directed three times a day (DME) FreeStyle Swati 14 Day [place] Misc See Rx Instructions .ROUTE .MEDSUPPLY Qty: 1 0RF Rx Instructions: As directed (DME) adhesive tape 2 X 10 -yard tape See Rx Instructions .ROUTE .MEDSUPPLY Qty: 1 0RF Rx Instructions: As directed (DME) gauze bandage [Band-Aid Gauze Pads] 4 X 4 bandage See Rx Instructions .Route Qty: 25 3RF Rx Instructions: As directed (DME) gauze bandage [Band-Aid Rolled Gauze] 3 X 2.5 -yard bandage See Rx Instructions .Route Qty: 30 3RF Rx Instructions: As directed (DME) off loading shoe Kit See Rx Instructions .Route Qty: 1 0RF Rx Instructions: As directed (DME) diabetic shoe to be fitted See Rx Instructions .Route .MEDSUPPLY Qty: 1 0RF Rx Instructions: As directed (DME) diabetic shoe inserts to be sized See Rx Instructions .Route .MEDSUPPLY Qty: 1 0RF Rx Instructions: As directed albuterol sulfate [Ventolin HFA] 90 mcg/actuation HFA aerosol inhaler 2 puff inhalation Q4-6H PRN (Reason: shortness of breath or wheezing) Qty: 8.5 0RF ibuprofen 200 mg Tablet 200 mg PO Q6H PRN (Reason: Pain) (DME) pen needle, diabetic [BD Ultra-Fine Nataliya Pen Needle] 32 gauge x 5/32 needle See Rx Instructions .ROUTE .MEDSUPPLY Qty: 50 3RF Rx Instructions: As directed (DME) insulin syringe-needle U-100 0.3 mL 31 gauge x 5/16 syringe See Rx Instructions .ROUTE .MEDSUPPLY Qty: 10 Rx Instructions: As directed (DME) lancets 28 gauge misc See Rx Instructions topical .MEDSUPPLY Qty: 100 Rx Instructions: As directed Discharge Orders: Discharge Order (Routine); Ordered 05/29/22 Ordered By: Gunjan Rose Care Plan Goals: resolution of foot wound Health Concerns: diabetic foot wound uncontrolled blood pressure medication non-compliance Plan of Treatment: Follow up with PCP return to ED if pain, redness, swelling worsens or if you develop fever/chills Assessment: left against medical advice prior to evaluation this am Discharge Date/Time: 05/29/22 08:10
== END 2022-05-29 08:10 | disposition left against medical advice (07) | DRG 380 ==
LOC: HO.ED 06:48 → HO.EDOVER 08:50 → HO.S3 18:58
PROVIDERS: Surgery; Admitting Provider Physician Assistant Medical; Emergency Provider Internal Medicine; PCP Internal Medicine; Visit Provider Physician Assistant Medical
DX: E11.621 Type 2 diabetes mellitus with foot ulcer (principal); L97.512 Non-pressure chronic ulcer of other part of right foot with fat layer exposed; E11.22 Type 2 diabetes mellitus with diabetic chronic kidney disease; E11.40 Type 2 diabetes mellitus with diabetic neuropathy, unspecified; F17.210 Nicotine dependence, cigarettes, uncomplicated; E78.00 Pure hypercholesterolemia, unspecified; Z20.822 Contact with and (suspected) exposure to COVID-19; M51.36 Other intervertebral disc degeneration, lumbar region; I12.9 Hypertensive chronic kidney disease with stage 1 through stage 4 chronic kidney disease, or unspecified chronic kidney disease; E66.9 Obesity, unspecified; Z68.36 Body mass index [BMI] 36.0-36.9, adult; N18.30 Chronic kidney disease, stage 3 unspecified; Z71.6 Tobacco abuse counseling; Z91.14 Patient's other noncompliance with medication regimen; Z79.4 Long term (current) use of insulin; Z79.899 Other long term (current) drug therapy
CPT/HCPCS: 36415; 73620; 73720; 80048; 80053; 82947; 83036; 83605; 85025; 85027; 85652; 86140; 87040; 87635; 94640; 96361; 96365; 96375; 99218; 99285; A9585; J1650; J2543; J3370

== ENCOUNTER → 2022-06-09 09:45 | Outpatient (BNVA) | payer OTHER, SELFPAY | PROVIDERS: PCP Internal Medicine; Visit Provider Physician Assistant Surgical | DX: E11.621 Type 2 diabetes mellitus with foot ulcer (principal); L97.502 Non-pressure chronic ulcer of other part of unspecified foot with fat layer exposed; L84 Corns and callosities | CPT/HCPCS: 97597; 99212 ==

== ENCOUNTER 2022-06-27 14:05 | Inpatient (IN) | payer OTHER, SELFPAY ==
--- NOTE | ~2022-06-27 | MR_ITS ---
EXAMINATION: MRI FOOT WITHOUT AND WITH CONTRAST, RIGHT CLINICAL INFORMATION: Foot infection. Evaluate for osteomyelitis. COMPARISON: Multiple priors, most recent right foot radiographs done earlier the same day. Right foot MRI dated 05/28/2022. TECHNIQUE: Multisequence MR imaging of the right foot was obtained before and after the IV administration of 10 mL Gadavist contrast on a high-field strength scanner. FINDINGS: Evaluation limited secondary to patient motion. Large soft tissue defect along the plantar/medial surface of the forefoot measuring up to 10.5 x 4.7 cm (AP x CC). Adjacent skin thickening and soft tissue enhancement, consistent with cellulitis. No definite, or organized fluid collection/abscess formation. There are multiple foci of air within the adjacent subcutaneous tissues along the plantar aspect of the foot and into the intrinsic musculature of the foot as seen on the prior radiographs. There is increased T2 and decreased T1 signal within the base of the 1st proximal phalanx with postcontrast enhancement, consistent with osteomyelitis. Findings are new when compared to the MRI dated 05/28/2022. Edema throughout the intrinsic musculature of the foot which can be seen in diabetic patients. Evaluate for a flexor and extensor tendons limited secondary to patient motion. MR/MR foot RT wo/w con IMPRESSION: 1. Large soft tissue defect along the plantar/medial surface of the forefoot with adjacent cellulitis. No definite abscess formation. Multiple foci of air within the adjacent subcutaneous tissues and intrinsic musculature of the foot, similar when compared to the prior radiographs. 2. Findings consistent with osteomyelitis at the base of the 1st proximal phalanx, new when compared to the MRI dated 05/28/2022. 3. Edema throughout the intrinsic musculature of the foot which can be seen in diabetic patients.
--- NOTE | ~2022-06-27 | XR_ITS ---
EXAMINATION: XR FOOT, RIGHT CLINICAL INFORMATION: Ulcer. Question osteomyelitis COMPARISON: 05/28/2022 TECHNIQUE: AP, lateral, and oblique views of the right foot. FINDINGS: There is extensive soft tissue gas highly suspicious for necrotizing fasciitis. This is predominantly seen in the plantar soft tissues of the midfoot and is new from the prior study. No gross cortical destruction to suggest osteomyelitis. MRI would be more sensitive. No fracture. XR/XR foot RT min 3V IMPRESSION: Extensive soft tissue gas, predominantly seen in the plantar soft tissues of the midfoot, highly suspicious for necrotizing fasciitis. The findings and specific concern for necrotizing fasciitis were discussed with Anh Lo MD by telephone at 06/27/2022 4:11 PM and it was ascertained that the content and urgency of the report was understood at the time of direct communication.
--- NOTE | ~2022-06-27 | XR_ITS ---
EXAMINATION: XR CHEST CLINICAL INFORMATION: Shortness of breath, pain COMPARISON: 05/15/2020 TECHNIQUE: Frontal view of the chest was obtained. FINDINGS: Lung volumes are improved but remain low. Lungs are clear. No focal consolidation or mass. Normal pulmonary vascularity. No pleural effusion or pneumothorax. Normal heart size. Degenerative changes of the shoulders and spine. XR/XR chest 1V IMPRESSION: No acute pulmonary disease.
--- NOTE | 2022-06-27 14:30 | ED_ITS ---
HPI - Extremity Problem General Chief complaint: Skin/Abscess/Foreign Body <Nellie Vivas CNP - Last Filed: 06/27/22 15:11> Stated complaint: r leg pain <Nellie Vivas CNP - Last Filed: 06/27/22 15:11> Time Seen by Provider: 06/27/22 15:35 <Nellie Vivas CNP - Last Filed: 06/27/22 15:11> Source: patient <Anh Lo MD - Last Filed: 06/27/22 18:01> Mode of arrival: ambulatory <Anh Lo MD - Last Filed: 06/27/22 18:01> Limitations: no limitations <Anh Lo MD - Last Filed: 06/27/22 18:01> History of Present Illness HPI Narrative: Patient comes to the emergency room complaining of an infected diabetic foot ulcer. Patient is known to be noncompliant with treatments. Patient denies fever chills, patient complaining of localized pain in the right foot. <Anh Lo MD - Last Filed: 06/27/22 18:01> Related Data Home medications: Home Medications Medication Instructions Recorded Confirmed insulin syringe-needle U-100 0.3 #10 ea 06/19/20 03/02/22 mL 31 gauge x 5/16 lancets 28 gauge #100 ea 06/19/20 03/02/22 ibuprofen 200 mg tablet 200 mg PO Q6H PRN Pain 05/28/22 06/27/22 Previous Rx's Medication Instructions Recorded insulin syr/ndl U100 half galen 0.3 #100 ea 05/11/20 mL 31 gauge x 5/16 pen needle, diabetic 32 gauge x #50 ea 05/22/20 (BD Ultra-Fine Nataliya Pen Needle) adhesive tape 1 1/2 X 10 yard #2 ea 10/22/20 gauze bandage 4 1/2 X 147 #48 ea 10/22/20 (Kerlix) blood sugar diagnostic #100 ea 05/24/21 blood-glucose meter #1 ea 05/24/21 blood sugar diagnostic (FreeStyle #75 ea 05/25/21 Precision Mushtaq Strips) flash glucose scanning reader #1 ea 05/28/21 (FreeStyle Swati 14 Day Napier) adhesive tape 2 X 10 yard #1 ea 07/21/21 gauze bandage 4 X 4 (Band-Aid #25 ea 07/21/21 Gauze Pads) off loading shoe #1 ea 07/21/21 diabetic shoe #1 ea 03/09/22 diabetic shoe inserts #1 ea 03/09/22 albuterol sulfate 90 mcg/actuation 2 puff inhalation Q4-6H PRN 05/25/22 aerosol inhaler (Ventolin HFA) shortness of breath or wheezing #8.5 grams calcium alginate #5 ea 06/09/22 gauze bandage 3 X 2.5 yard #30 ea 06/09/22 (Band-Aid Rolled Gauze) gauze bandage 4 X 4 sponge #4 ea 06/09/22 (Kerlix) <Nellie Vivas CNP - Last Filed: 06/27/22 15:11> Allergies/Adverse reactions: Allergies Allergy/AdvReac Type Severity Reaction Status Date / Time gabapentin AdvReac Intermediate nausea, Verified 06/09/22 09:51 dizziness <Nellie Vivas CNP - Last Filed: 06/27/22 15:11> Review of Systems Review of Systems: Constitutional : No Weight loss, No Fever, No Chills, No Night Sweats, No Fatigue, No Malaise ENT/Mouth : No Hearing loss, No Ear Pain, No Nasal Congestion, No Sinus Pain, No Hoarseness, No sore throat, No Rhinorrhea, No Swallowing Difficulty Eyes: No Eye Pain, No Swelling, No Redness, No Foreign Body, No Discharge, No Vision Changes Cardiovascular : No Chest Pain, No SOB, No Dyspnea on Exertion, No Orthopnea, No Edema, No Palpitations Respiratory : No Cough, No Sputum, No Wheezing, No Smoke Exposure, No Dyspnea Gastrointestinal : No Nausea, No Vomiting, No Diarrhea, No Constipation, No abdominal Pain, No Hematochezia, No Melena Genitourinary : no irregular bleeding, No Dysuria, No Urinary Frequency, No Hematuria, No Urinary Incontinence, No Urgency, No Flank Pain, No Urinary Flow Changes, No Hesitancy Musculoskeletal : No joint pain, No Myalgias, No Joint Swelling Skin : Complaining of diabetic ulcer and the right foot and pain Neuro : No Weakness, No Numbness, No Paresthesias, No Loss of Consciousness, No Dizziness, No Headache Psych : No Anxiety/Panic, No Depression, No SI/HI/AH/VH, No Social Issues, Heme/Lymph: No Bruising, No Bleeding,No Lymphadenopathy Endocrine : No Polyuria, No Polydipsia, No Temperature Intolerance <Anh Lo MD - Last Filed: 06/27/22 18:01> [facility] Past Medical History Medical History: Medical History Asthma Benign essential hypertension Callus under metatarsal head Chronic painful diabetic neuropathy Diabetes mellitus Diabetic foot Diabetic ulcer of foot associated with diabetes mellitus due to underlying condition, with fat layer exposed Dry gangrene Foot abscess, right Hyperlipidemia LDL goal <100 Lumbar degenerative disc disease Neuropathy Obesity Obesity (BMI 30-39.9) Osteomyelitis of ankle or foot, acute Osteomyelitis of left foot Pure hypercholesterolemia Smoker Umbilical hernia <Nellie Vivas CNP - Last Filed: 06/27/22 15:11> Surgical History: Surgical History H/O hernia repair Status post amputation of left great toe Status post debridement Status post incision and drainage Status post incision and drainage <Nellie Vivas CNP - Last Filed: 06/27/22 15:11> Family History Family History: Family History Father Medical history unknown Mother Asthma Hypertension Diabetes Brother Chronic mental illness Diabetes <Nellie Vivas CNP - Last Filed: 06/27/22 15:11> Social History Social History: Social History Household Members: Other Household Members Other:: girlfriend Housing: Apartment Do you presently have visiting nurse or other home services: No Alcohol intake: former Patient Tobacco Use Status: Current everyday Tobacco user Tobacco use type: Cigarette Cigarette Packs Per Day: 0.5 Cigarettes Per Day: 10.0 Years Smoked: 30 Second Hand Smoke Exposure: Yes Substance Use Type: Marijuana Advance Directives: Yes Advance Directives on File: Yes Advance Directives Date on File: 05/30/20 service: No Current occupational status: employed <Nellie Vivas CNP - Last Filed: 06/27/22 15:11> Physical Exam Vital Signs: Vital Signs: Last Vital Signs Temp 97.7 F 06/27/22 17:01 Pulse 86 06/27/22 17:01 Resp 18 06/27/22 17:01 BP 142/68 H 06/27/22 17:01 Pulse Ox 96 06/27/22 17:01 O2 Del Method 06/27/22 17:01 BMI result Body Mass Index 34.9 <Nellie Marie QUENTIN Vivas - Last Filed: 06/27/22 15:11> Vital Signs: Last Vital Signs Temp 97.7 F 06/27/22 17:01 Pulse 86 06/27/22 17:01 Resp 18 06/27/22 17:01 BP 142/68 H 06/27/22 17:01 Pulse Ox 96 06/27/22 17:01 O2 Del Method 06/27/22 17:01 BMI result Body Mass Index 34.9 <Anh Lo MD - Last Filed: 06/27/22 18:01> Const: Other: Appearance: Alert. Oriented X3. No acute distress. Eyes: Pupils equal, round and reactive to light. ENT: Pharynx normal. Neck: Normal inspection. Neck supple. No lymph nodes noted. No crepitus CVS: Normal heart rate and rhythm. Pulses normal. Normal S1 and S2 Respiratory: No respiratory distress. Breath sounds normal. No Wheezing. No rales Abdomen: Soft and nontender. No rigidity. No distention. Skin: Skin warm and dry. Diabetic foot ulcer draining malodorous fluid, with gangrene, see picture below Extremities: No lower extremity edema. See skin above Neuro: Oriented X 3. No motor deficit. No sensory deficit. Moving all extremities. No slurred speech. CN 2 through 12 grossly intact Psych: calm, cooperative, normal affect <Anh Lo MD - Last Filed: 06/27/22 18:01> Course Course Course Narrative: RME: Patient is a 51-year-old male with past medical history of asthma, hyperlipidemia, hypertension, type 2 diabetes, neuropathy, obesity, osteomyelitis, dry gangrene who presents to the emergency department for corby luation of right leg pain. He states he is followed by Dr. Keane is for a ?bacteria in his leg?. Has right diabetic foot ulcer, last seen by Dr. Keane 06/09/2022. He states that he is performing dressing changes which he lasted today. Increased work of breathing during triage, audible wheezing, appears pale, tachycardia, difficulty obtaining O2 saturation blood pressure during triage process, right foot swollen edematous. Plan: Spoke with conveyor line battery charger, advised patient needs to be moved to main ED, concern for sepsis, Zosyn ordered, labs, EKG, chest x-ray, viral testing. <Nellie Vivas CNP - Last Filed: 06/27/22 15:11> RME: Patient is a 51-year-old male with past medical history of asthma, hyperlipidemia, hypertension, type 2 diabetes, neuropathy, obesity, osteomyelitis, dry gangrene who presents to the emergency department for evaluation of right leg pain. He states he is followed by Dr. Keane is for a ?bacteria in his leg?. Has right diabetic foot ulcer, last seen by Dr. Keane 06/09/2022. He states that he is performing dressing changes which he lasted today. Increased work of breathing during triage, audible wheezing, appears pale, tachycardia, difficulty obtaining O2 saturation blood pressure during triage process, right foot swollen edematous. Plan: Spoke with conveyor line battery charger, advised patient needs to be moved to main ED, concern for sepsis, Zosyn ordered, labs, EKG, chest x-ray, viral testing. Patient is receiving IV fluids based on an ideal weight 64 kg. Patient has already been started on IV vanco and Zosyn Patient seen at bedside by Dr. Keane, patient had an initial bedside debridement done, patient will need more treatment and debridement. Goal is to stay the foot rather than a amputate it, patient has already toe amputations on the other foot <Anh Lo MD - Last Filed: 06/27/22 18:01> Medications Administered Generic Name Dose Route Start Last Admin Trade Name Freq PRN Reason Stop Dose Admin Vancomycin HCl 2,000 mg in 520 mls @ 260 mls/hr 06/27/22 16:11 06/27/22 17:41 Vancomycin/Ns IV 06/27/22 18:10 260 mls/hr ONCE ONE Administration Sodium Chloride 2,000 mls @ 999 mls/hr 06/27/22 16:24 06/27/22 16:59 Ns IVCONT 06/27/22 18:24 999 mls/hr .Q2H1M ONE Administration Discontinued Medications Generic Name Dose Route Start Last Admin Trade Name Freq PRN Reason Stop Dose Admin Piperacillin Sod/Tazobactam 50 mls @ 100 mls/hr 06/27/22 16:11 06/27/22 16:59 Sod 3.375 gm/ Sodium Chloride IV 06/27/22 16:40 100 mls/hr ONCE ONE Administration <Nellie Mcgrath QUENTIN Vivas - Last Filed: 06/27/22 15:11> Medications Administered Generic Name Dose Route Start Last Admin Trade Name Freq PRN Reason Stop Dose Admin Vancomycin HCl 2,000 mg in 520 mls @ 260 mls/hr 06/27/22 16:11 06/27/22 17:41 Vancomycin/Ns IV 06/27/22 18:10 260 mls/hr ONCE ONE Administration Sodium Chloride 2,000 mls @ 999 mls/hr 06/27/22 16:24 06/27/22 16:59 Ns IVCONT 06/27/22 18:24 999 mls/hr .Q2H1M ONE Administration Discontinued Medications Generic Name Dose Route Start Last Admin Trade Name Freq PRN Reason Stop Dose Admin Piperacillin Sod/Tazobactam 50 mls @ 100 mls/hr 06/27/22 16:11 06/27/22 16:59 Sod 3.375 gm/ Sodium Chloride IV 06/27/22 16:40 100 mls/hr ONCE ONE Administration <Ahn Lo MD - Last Filed: 06/27/22 18:01> Medical Decision Making Differential Diagnosis Differential Diagnoses: The differential diagnosis associated with the presentation includes (Diabetic foot ulcer, cellulitis, necrotizing fasciitis) <Anh Lo MD - Last Filed: 06/27/22 18:01> Admission/Observation Consideration of admission/observation: Escalation of care including admission/observation considered (Patient will need admission for more IV antibiotics and debridement) <Anh Lo MD - Last Filed: 06/27/22 18:01> Consult Healthcare Provider Management of the patient was discussed with: Hospitalist (I discussed the patient with Dr. Tijerina, patient needs to be admitted) and Finishing Supervisor Pl[employer] (Dr. Keane from surgery: Initial debridement done at bedside. Patient will need more antibiotics and debridement) <Anh Lo MD - Last Filed: 06/27/22 18:01> Lab Data MDM Lab Attestation statement: I reviewed the patient's lab results. <Anh Lo MD - Last Filed: 06/27/22 18:01> Result Diagrams: : 06/27/22 15:58 06/27/22 15:58 <Nellie Vivas CNP - Last Filed: 06/27/22 15:11> Labs: Lab Results 06/27/22 06/27/22 06/27/22 Range/Units 15:57 15:57 15:58 WBC 25.5 H (4.8-10.8) X10*3/uL RBC 3.91 L (4.60-5.80) X10*6/uL Hgb 10.1 L (14.0-18.0) g/dl Hct 31.8 L (42.0-52.0) % MCV 81.3 (80.0-98.0) fL MCH 25.8 L (27.0-33.0) pg MCHC 31.8 (31.0-36.0) g/dl RDW 13.2 (11.0-16.0) % Plt Count TNP MPV 11.3 (9.4-12.4) fL Immature Gran % (Auto) 2.2 H (0.0-0.4) % Neut % (Auto) 91.4 H (45-73) % Lymph % (Auto) 1.9 L (20-40) % Alfalfa % (Auto) 3.9 (2-11) % Eos % (Auto) 0.2 (0-4) % Baso % (Auto) 0.4 (0-2) % Lymph # (Auto) 0.5 L (1.2-4.9) X10*3/uL Alfalfa # (Auto) 1.0 (0.1-1.2) X10*3/uL Eos # (Auto) 0.0 (0.0-0.4) X10*3/uL Baso # (Auto) 0.1 (0.0-0.2) X10*3/uL Abs Immat Gran (auto) 0.57 H (0.00-0.03) X10*3/uL Absolute Neuts (auto) 23.3 H (2.0-8.3) x10*3/uL Absolute Nucleated RBC 0.000 (0.0-0.012) X10*3/uL Nucleated RBC % (auto) 0.0 (0.0-0.2) /100WBC Smear Tech's Comments VERIFIED Sodium (135-145) mmol/L Potassium (3.3-5.1) mmol/L Chloride (96-108) mmol/L Carbon Dioxide (22-29) mmol/L Anion Gap (12-20) BUN (9-16) mg/dL Creatinine (0.5-1.4) mg/dL Estim Creat Clear Calc Estimated GFR Random Glucose (60-115) mg/dL Lactic Acid (0.5-2.0) mmol/L Calcium (8.4-10.2) mg/dL Magnesium (1.6-2.6) mg/dL Total Bilirubin (0.0-1.0) mg/dL AST (5-37) U/L ALT (0-40) U/L Alkaline Phosphatase (39-117) U/L Troponin I High Sens (<3.5-35.0) ng/L Total Protein (6.5-8.0) g/dL Albumin (3.5-5.0) g/dL COVID-19 (KURT) Negative (Negative) COVID-19 Clin Com See Note Influenza Type A (GLENN) Negative (Negative) Influenza Type B (GLENN) Negative (Negative) Influenza A & B Note See Note 06/27/22 06/27/22 06/27/22 Range/Units 15:58 15:58 15:58 WBC (4.8-10.8) X10*3/uL RBC (4.60-5.80) X10*6/uL Hgb (14.0-18.0) g/dl Hct (42.0-52.0) % MCV (80.0-98.0) fL MCH (27.0-33.0) pg MCHC (31.0-36.0) g/dl RDW (11.0-16.0) % Plt Count MPV (9.4-12.4) fL Immature Gran % (Auto) (0.0-0.4) % Neut % (Auto) (45-73) % Lymph % (Auto) (20-40) % Alfalfa % (Auto) (2-11) % Eos % (Auto) (0-4) % Baso % (Auto) (0-2) % Lymph # (Auto) (1.2-4.9) X10*3/uL Alfalfa # (Auto) (0.1-1.2) X10*3/uL Eos # (Auto) (0.0-0.4) X10*3/uL Baso # (Auto) (0.0-0.2) X10*3/uL Abs Immat Gran (auto) (0.00-0.03) X10*3/uL Absolute Neuts (auto) (2.0-8.3) x10*3/uL Absolute Nucleated RBC (0.0-0.012) X10*3/uL Nucleated RBC % (auto) (0.0-0.2) /100WBC Smear Tech's Comments Sodium 134 L (135-145) mmol/L Potassium 4.8 (3.3-5.1) mmol/L Chloride 97 (96-108) mmol/L Carbon Dioxide 25 (22-29) mmol/L Anion Gap 17 (12-20) BUN 41 H (9-16) mg/dL Creatinine 1.98 H (0.5-1.4) mg/dL Estim Creat Clear Calc 51.6 Estimated GFR 36 Random Glucose 308 H (60-115) mg/dL Lactic Acid 2.2 H* (0.5-2.0) mmol/L Calcium 7.9 L (8.4-10.2) mg/dL Magnesium 2.2 (1.6-2.6) mg/dL Total Bilirubin 0.5 (0.0-1.0) mg/dL AST 17 (5-37) U/L ALT 21 (0-40) U/L Alkaline Phosphatase 387 H (39-117) U/L Troponin I High Sens 14.0 (<3.5-35.0) ng/L Total Protein 6.0 L (6.5-8.0) g/dL Albumin 2.5 L (3.5-5.0) g/dL COVID-19 (KURT) (Negative) COVID-19 Clin Com Influenza Type A (GLENN) (Negative) Influenza Type B (GLENN) (Negative) Influenza A & B Note <Nellie Vivas, CROP DUSTER - Last Filed: 06/27/22 15:11> Lab Results 06/27/22 06/27/22 06/27/22 Range/Units 15:57 15:57 15:58 WBC 25.5 H (4.8-10.8) X10*3/uL RBC 3.91 L (4.60-5.80) X10*6/uL Hgb 10.1 L (14.0-18.0) g/dl Hct 31.8 L (42.0-52.0) % MCV 81.3 (80.0-98.0) fL MCH 25.8 L (27.0-33.0) pg MCHC 31.8 (31.0-36.0) g/dl RDW 13.2 (11.0-16.0) % Plt Count TNP MPV 11.3 (9.4-12.4) fL Immature Gran % (Auto) 2.2 H (0.0-0.4) % Neut % (Auto) 91.4 H (45-73) % Lymph % (Auto) 1.9 L (20-40) % Alfalfa % (Auto) 3.9 (2-11) % Eos % (Auto) 0.2 (0-4) % Baso % (Auto) 0.4 (0-2) % Lymph # (Auto) 0.5 L (1.2-4.9) X10*3/uL Alfalfa # (Auto) 1.0 (0.1-1.2) X10*3/uL Eos # (Auto) 0.0 (0.0-0.4) X10*3/uL Baso # (Auto) 0.1 (0.0-0.2) X10*3/uL Abs Immat Gran (auto) 0.57 H (0.00-0.03) X10*3/uL Absolute Neuts (auto) 23.3 H (2.0-8.3) x10*3/uL Absolute Nucleated RBC 0.000 (0.0-0.012) X10*3/uL Nucleated RBC % (auto) 0.0 (0.0-0.2) /100WBC Smear Tech's Comments VERIFIED Sodium (135-145) mmol/L Potassium (3.3-5.1) mmol/L Chloride (96-108) mmol/L Carbon Dioxide (22-29) mmol/L Anion Gap (12-20) BUN (9-16) mg/dL Creatinine (0.5-1.4) mg/dL Estim Creat Clear Calc Estimated GFR Random Glucose (60-115) mg/dL Lactic Acid (0.5-2.0) mmol/L Calcium (8.4-10.2) mg/dL Magnesium (1.6-2.6) mg/dL Total Bilirubin (0.0-1.0) mg/dL AST (5-37) U/L ALT (0-40) U/L Alkaline Phosphatase (39-117) U/L Troponin I High Sens (<3.5-35.0) ng/L Total Protein (6.5-8.0) g/dL Albumin (3.5-5.0) g/dL COVID-19 ([facility]URT) Negative (Negative) COVID-19 Clin Com See Note Influenza Type A (GLENN) Negative (Negative) Influenza Type B (GLENN) Negative (Negative) Influenza A & B Note See Note 06/27/22 06/27/22 06/27/22 Range/Units 15:58 15:58 15:58 WBC (4.8-10.8) X10*3/uL RBC (4.60-5.80) X10*6/uL Hgb (14.0-18.0) g/dl Hct (42.0-52.0) % MCV (80.0-98.0) fL MCH (27.0-33.0) pg MCHC (31.0-36.0) g/dl RDW (11.0-16.0) % Plt Count MPV (9.4-12.4) fL Immature Gran % (Auto) (0.0-0.4) % Neut % (Auto) (45-73) % Lymph % (Auto) (20-40) % Alfalfa % (Auto) (2-11) % Eos % (Auto) (0-4) % Baso % (Auto) (0-2) % Lymph # (Auto) (1.2-4.9) X10*3/uL Alfalfa # (Auto) (0.1-1.2) X10*3/uL Eos # (Auto) (0.0-0.4) X10*3/uL Baso # (Auto) (0.0-0.2) X10*3/uL Abs Immat Gran (auto) (0.00-0.03) X10*3/uL Absolute Neuts (auto) (2.0-8.3) x10*3/uL Absolute Nucleated RBC (0.0-0.012) X10*3/uL Nucleated RBC % (auto) (0.0-0.2) /100WBC Smear Tech's Comments Sodium 134 L (135-145) mmol/L Potassium 4.8 (3.3-5.1) mmol/L Chloride 97 (96-108) mmol/L Carbon Dioxide 25 (22-29) mmol/L Anion Gap 17 (12-20) BUN 41 H (9-16) mg/dL Creatinine 1.98 H (0.5-1.4) mg/dL Estim Creat Clear Calc 51.6 Estimated GFR 36 Random Glucose 308 H (60-115) mg/dL Lactic Acid 2.2 H* (0.5-2.0) mmol/L Calcium 7.9 L (8.4-10.2) mg/dL Magnesium 2.2 (1.6-2.6) mg/dL Total Bilirubin 0.5 (0.0-1.0) mg/dL AST 17 (5-37) U/L ALT 21 (0-40) U/L Alkaline Phosphatase 387 H (39-117) U/L Troponin I High Sens 14.0 (<3.5-35.0) ng/L Total Protein 6.0 L (6.5-8.0) g/dL Albumin 2.5 L (3.5-5.0) g/dL COVID-19 ([facility]URT) (Negative) COVID-19 Clin Com Influenza Type A (GLENN) (Negative) Influenza Type B (GLENN) (Negative) Influenza A & B Note <Anh oL MD - Last Filed: 06/27/22 18:01> Independent Interpretation I performed an independent interpretation of an: Plain X-Ray <Anh Lo MD - Last Filed: 06/27/22 18:01> Interpretation: X-ray: No fractures, gas present <Anh Lo MD - Last Filed: 12/19/22 18:> Radiology Impression Discussion of test interpretation with radiology: I have reviewed the radiologist's reading. <Anh Lo MD - Last Filed: 06/27/22 18:> Radiologist Impression: FINDINGS: There is extensive soft tissue gas highly suspicious for necrotizing fasciitis. This is predominantly seen in the plantar soft tissues of the midfoot and is new from the prior study. No gross cortical destruction to suggest osteomyelitis. MRI would be more sensitive. No fracture.? XR/XR foot RT min 3V IMPRESSION: Extensive soft tissue gas, predominantly seen in the plantar soft tissues of the midfoot, highly suspicious for necrotizing fasciitis. <Anh Lo MD - Last Filed: 06/27/22 18:> Tests considered The following testing was considered but not selected: CT scan of the foot was considered. However, patient was evaluated by Dr. Keane, the air that we are seeing in the subcutaneous tissue on x-ray is likely secondary to an open wound/diabetic foot ulcer, patient does not seem sick, vitals stable, necrotizing fasciitis is not suspected. <Anh Lo MD - Last Filed: 06/27/22 18:> Prescription Management I considered prescription management with: Pain Medication <Anh Lo MD - Last Filed: 06/27/22 18:> Patient has not requested any pain medication. The remnant was done at bedside, patient did not have any significant discomfort <Anh Lo MD - Last Filed: 06/27/22 18:> Chronic Conditions Patient?s care impacted by: Diabetes (Patient received fluids and insulin. Optimal glucose control will be very important for patient's treatment) <Anh Lo MD - Last Filed: 06/27/22 18:> Critical Care Time Critical Care Time Critical Care Time: Yes <Anh Lo MD - Last Filed: 06/27/22 18:> Total Critical Care Time: 40 <Anh Lo MD - Last Filed: 06/27/22 18:> Attestation: I have personally provided critical care time. Time includes review of lab data, radiology results, discussion with consultants, and monitoring for potential decompensation. Intervention performed as documented. <Anh Lo MD - Last Filed: 06/27/22 18:01> Discharge Plan Discharge Clinical Impression: Diabetic foot ulcer, Acute hyperglycemia, Acute kidney injury <Nellie Vivas, CROP DUSTER - Last Filed: 06/27/22 15:11> Prescriptions: No Action (DME) insulin syr/ndl U100 half galen 0.3 mL 31 gauge x 5/16 syringe See Rx Instructions .ROUTE .MEDSUPPLY Qty: 100 0RF Rx Instructions: As directed - covering for DR. SILVESTRE HILL (DME) Kerlix 4 1/2 X 147 bandage See Rx Instructions .ROUTE .MEDSUPPLY Qty: 48 1RF Rx Instructions: apply to wound daily (DME) adhesive tape 1 1/2 X 10 -yard tape See Rx Instructions .ROUTE .MEDSUPPLY Qty: 2 1RF Rx Instructions: apply to wound daily (DME) blood sugar diagnostic Strip See Rx Instructions .ROUTE .MEDSUPPLY Qty: 100 0RF Rx Instructions: As directed (DME) blood-glucose meter Kit See Rx Instructions .ROUTE .MEDSUPPLY Qty: 1 0RF Rx Instructions: As directed (DME) FreeStyle Precision Mushtaq Strips Strip See Rx Instructions .ROUTE .MEDSUPPLY Qty: 75 6RF Rx Instructions: As directed three times a day (DME) FreeStyle Swati 14 Day [place] Misc See Rx Instructions .ROUTE .MEDSUPPLY Qty: 1 0RF Rx Instructions: As directed (DME) adhesive tape 2 X 10 -yard tape See Rx Instructions .ROUTE .MEDSUPPLY Qty: 1 0RF Rx Instructions: As directed (DME) gauze bandage [Band-Aid Gauze Pads] 4 X 4 bandage See Rx Instructions .Route Qty: 25 3RF Rx Instructions: As directed (DME) off loading shoe Kit See Rx Instructions .Route Qty: 1 0RF Rx Instructions: As directed (DME) diabetic shoe to be fitted See Rx Instructions .Route .MEDSUPPLY Qty: 1 0RF Rx Instructions: As directed (DME) diabetic shoe inserts to be sized See Rx Instructions .Route .MEDSUPPLY Qty: 1 0RF Rx Instructions: As directed albuterol sulfate [Ventolin HFA] 90 mcg/actuation HFA aerosol inhaler 2 puff inhalation Q4-6H PRN (Reason: shortness of breath or wheezing) Qty: 8.5 0RF ibuprofen 200 mg Tablet 200 mg PO Q6H PRN (Reason: Pain) (DME) pen needle, diabetic [BD Ultra-Fine Nataliya Pen Needle] 32 gauge x 5/32 needle See Rx Instructions .ROUTE .MEDSUPPLY Qty: 50 3RF Rx Instructions: As directed (DME) insulin syringe-needle U-100 0.3 mL 31 gauge x 5/16 syringe See Rx Instructions .ROUTE .MEDSUPPLY Qty: 10 Rx Instructions: As directed (DME) lancets 28 gauge misc See Rx Instructions topical .MEDSUPPLY Qty: 100 Rx Instructions: As directed (DME) calcium alginate See Rx Instructions .Route .MEDSUPPLY Qty: 5 0RF Rx Instructions: As directed - apply to wound bed daily (DME) Kerlix 4 X 4 sponge See Rx Instructions .ROUTE .MEDSUPPLY Qty: 4 1RF Rx Instructions: 4 boxes of 4x4 kerlix fluff gauze - apply to wound daily (DME) gauze bandage [Band-Aid Rolled Gauze] 3 X 2.5 -yard bandage See Rx Instructions .Route Qty: 30 1RF Rx Instructions: Apply around foot/wound daily and as needed. <Nellie Vivas, QUENTIN - Last Filed: 06/27/22 15:11>
[2022-06-27 14:33] VITALS: RESP 28; TEMP 36.7; BMI 34.9
--- NOTE | 2022-06-27 14:38 | ECG_ITS ---
Test Reason : SEPSIS Blood Pressure : / mmHG Vent. Rate : 114 BPM Atrial Rate : 114 BPM P-R Int : 134 ms QRS Dur : 094 ms QT Int : 326 ms P-R-T Axes : 059 053 062 degrees QTc Int : 449 ms Sinus tachycardia Otherwise normal ECG When compared with ECG of 08-FEB-2022 00:03, No significant change was found Referred By: Nellie Vivas Electronically Signed By:Eliezer Rodney
[2022-06-27 16:11] LABS: Basophils Absolute Auto 0.1 X10*3/uL (0.0-0.2); Basophils Percent Auto 0.4 % (0-2); Eosinophils Percent Auto 0.2 % (0-4); Hematocrit 31.8 % (42.0-52.0); Hemoglobin 10.1 g/dl (14.0-18.0); Imm Gran Abs Auto 0.57 X10*3/uL (0.00-0.03); Imm Gran Pct Auto 2.2 % (0.0-0.4); Lymphocytes Absolute Auto 0.5 X10*3/uL (1.2-4.9); Lymphocytes Percent Auto 1.9 % (20-40); MANUAL DIFF FLAG SCAN; Mean Corpuscular HGB Conc 31.8 g/dl (31.0-36.0); Mean Corpuscular Hemoglobin 25.8 pg (27.0-33.0); Mean Corpuscular Volume 81.3 fL (80.0-98.0); Mean Platelet Volume 11.3 fL (9.4-12.4); Monocytes Percent Auto 3.9 % (2-11); Neutrophils Absolute Auto 23.3 x10*3/uL (2.0-8.3); Neutrophils Percent Auto 91.4 % (45-73); Red Blood Count 3.91 X10*6/uL (4.60-5.80); Red Cell Distribution Width 13.2 % (11.0-16.0); SCAN SMEAR FLAG 1; White Blood Count 25.5 X10*3/uL (4.8-10.8)
[2022-06-27 16:18] LABS: COVID-19 Test Negative (Negative)
[2022-06-27 16:25] LABS: IDNOW Serial# 55D5AD1C; Influenza A Negative (Negative); Influenza B2 Negative (Negative)
[2022-06-27 16:33] LABS: SLIDE REVIEW VERIFIED
[2022-06-27 16:35] LABS: Alanine Aminotransferase 21 U/L (0-40); Albumin Level 2.5 g/dL (3.5-5.0); Alkaline Phosphatase 387 U/L (39-117); Anion Gap 17 (12-20); Aspartate Amino Transferase 17 U/L (5-37); Bilirubin Total 0.5 mg/dL (0.0-1.0); Blood Urea Nitrogen 41 mg/dL (9-16); Calcium 7.9 mg/dL (8.4-10.2); Carbon Dioxide 25 mmol/L (22-29); Chloride 97 mmol/L (96-108); Creatinine Clr Calc Pharmacy 51.6; Estimated Glomerular Filt Rate 36; Glucose Random 308 mg/dL (60-115); Magnesium 2.2 mg/dL (1.6-2.6); Potassium 4.8 mmol/L (3.3-5.1); Sodium 134 mmol/L (135-145)
[2022-06-27 16:45] LABS: Lactic Acid 2.2 mmol/L (0.5-2.0)
--- NOTE | 2022-06-27 16:50 | PM.CNGS ---
History of Present Illness Consult details Consult date: 06/27/22 Narrative: 51M here in the ED because of a DM foot. He is well known to the service for DM feet and had previously undergone amputation of the first and second toes on the left foot for osteomyelitis. He has also undergone multiple debridement and I and D in the past, He has had thick calluses on both plantar areas requring frequent debridement in the office. He says he has had this open wound and foul smell from the plantar and medial aspect of the right foot for over a week. He says this had persisted so he eventually decided to come to the ED today. He denies fever but says he may have chills earlier today. He otherwise says he is comfortable. He is known to be poorly compliant with self-care, including with his diabetes and does not follow through well with wound care at home. Review of Systems Constitutional: Constitutional: Reports chills and Denies fever(s) Cardiovascular: Cardiovascular: Denies chest pain, Denies dyspnea and Denies dyspnea on exertion Respiratory: Respiratory: Denies cough, Denies dyspnea and Denies dyspnea on exertion Gastrointestinal: Gastrointestinal: Denies hematochezia and Denies change in bowel habits Genitourinary: Genitourinary: Denies hematuria and Denies difficulty urinating Musculoskeletal: Musculoskeletal: Reports back pain (chronic back pain) and Denies limited range of motion Neurologic: Denies focal weakness and Denies convulsions Psychiatric: Psychiatric: Denies depression and Denies mood swings [facility] Past Medical History Medical History (Updated 06/28/22 @ 15:38 by Sol Kirkland MD) Asthma Benign essential hypertension Callus under metatarsal head Chronic painful diabetic neuropathy Diabetes mellitus Diabetic foot Diabetic ulcer of foot associated with diabetes mellitus due to underlying condition, with fat layer exposed Dry gangrene Foot abscess, right Gram positive sepsis Hyperlipidemia LDL goal <100 Lumbar degenerative disc disease Neuropathy Obesity Obesity (BMI 30-39.9) Osteomyelitis of ankle or foot, acute Osteomyelitis of left foot Pure hypercholesterolemia Smoker Umbilical hernia Family History Family History Father Medical history unknown Mother Asthma Hypertension Diabetes Brother Chronic mental illness Diabetes Surgical History Surgical History H/O hernia repair Status post amputation of left great toe Status post debridement Status post incision and drainage Status post incision and drainage Social History Social History Household Members: Significant Other Household Members Other:: girlfriend Housing: Apartment Do you presently have visiting nurse or other home services: No Alcohol intake: former Patient Tobacco Use Status: Current everyday Tobacco user Tobacco use type: Cigarette Cigarette Packs Per Day: 0.5 Cigarettes Per Day: 10 Years Smoked: 30 Smoked in Last 30 Days: Yes Patient Interested in Nicotine Replacement: Yes Patient Given Instructions on How to Stop Smoking: Yes Date Education Initiated: 06/27/22 Second Hand Smoke Exposure: Yes Use of substances other than those prescribed or required for medical reasons: No Substance Use Type: Marijuana Currently Displaying Signs/Symptoms of Drug Intoxication Withdrawal: No Have you been hit, kicked, punched, or otherwise hurt by someone within the past year? If so, by whom?: No Do you feel safe in your current relationship?: Yes Is there a partner from a previous relationship who is making you feel unsafe now?: No Are you made to feel afraid or neglected: No Are you DNR?: No Advance Directives: Yes Advance Directives on File: Yes Advance Directives Date on File: 05/30/20 Do you have thoughts of harming others: None Do you have a plan to hurt others: No Plan Recently lost weight without trying: No Nutrition Risks: No Nutritional Risk Poor oral hygiene: No service: No Current occupational status: employed Meds Allergies Allergy/AdvReac Type Severity Reaction Status Date / Time gabapentin AdvReac Intermediate nausea, Verified 06/09/22 09:51 dizziness Active Medications: Current Medications Vancomycin HCl (Vancomycin/Ns) 2,000 mg in 520 mls @ 260 mls/hr IV ONCE ONE Stop: 06/27/22 18:10 Sodium Chloride (Ns) 2,000 mls @ 999 mls/hr IVCONT .Q2H1M ONE Stop: 06/27/22 18:24 Pharmacy Consult (Consult Rx Vancomycin Dosing) 1 each MISCELLANE DAILY PRN PRN Reason: Consult order Pharmacy Consult (Consult Rx Perform Med Rec) 1 each MISCELLANE ONCE PRN PRN Reason: Consult order Home Medications Medication Instructions Recorded Confirmed Last Taken Type insulin syringe-needle U-100 0.3 #10 ea 06/19/20 03/02/22 Unknown History mL 31 gauge x 5/16 lancets 28 gauge #100 ea 06/19/20 03/02/22 Unknown History ibuprofen 200 mg tablet 200 mg PO Q6H PRN Pain 05/28/22 06/27/22 Unknown History Physical Exam Vital Signs: Vital Signs: Last Vital Signs Temp 98.0 F 06/27/22 14:33 Resp 28 H 06/27/22 14:33 BMI result Body Mass Index 34.9 Const: Other: looks well otherwise General: comfortable and no acute distress Orientation/consciousness: patient oriented x3 Neck: Neck: Yes no lymphadenopathy Resp: Auscultation: clear to auscultation bilaterally Cardio: Rhythm: regular rhythm GI: Palpation (GI): Soft to palpation, nontender and no guarding Neuro: General: patient oriented x3 Extrem: Other: open wound on medial and plantar aspect of right foot, with foul-smelling drainage, mild overlying redness Results Labs Result diagrams: 06/29/22 05:37 07/01/22 06:06 Labs: Abnormal lab results 06/27/22 06/27/22 06/27/22 Range/Units 15:58 15:58 15:58 WBC 25.5 H (4.8-10.8) X10*3/uL RBC 3.91 L (4.60-5.80) X10*6/uL Hgb 10.1 L (14.0-18.0) g/dl Hct 31.8 L (42.0-52.0) % MCH 25.8 L (27.0-33.0) pg Immature Gran % (Auto) 2.2 H (0.0-0.4) % Neut % (Auto) 91.4 H (45-73) % Lymph % (Auto) 1.9 L (20-40) % Lymph # (Auto) 0.5 L (1.2-4.9) X10*3/uL Abs Immat Gran (auto) 0.57 H (0.00-0.03) X10*3/uL Absolute Neuts (auto) 23.3 H (2.0-8.3) x10*3/uL Sodium 134 L (135-145) mmol/L BUN 41 H (9-16) mg/dL Creatinine 1.98 H (0.5-1.4) mg/dL Random Glucose 308 H (60-115) mg/dL Lactic Acid 2.2 H* (0.5-2.0) mmol/L Calcium 7.9 L (8.4-10.2) mg/dL Alkaline Phosphatase 387 H (39-117) U/L Total Protein 6.0 L (6.5-8.0) g/dL Albumin 2.5 L (3.5-5.0) g/dL Short CBC 06/27/22 Range/Units 15:58 WBC 25.5 H (4.8-10.8) X10*3/uL Hgb 10.1 L (14.0-18.0) g/dl Hct 31.8 L (42.0-52.0) % Plt Count TNP BMP 06/27/22 15:58 Sodium 134 L Potassium 4.8 Chloride 97 Carbon Dioxide 25 BUN 41 H Creatinine 1.98 H Calcium 7.9 L Liver Function 06/27/22 Range/Units 15:58 Total Bilirubin 0.5 (0.0-1.0) mg/dL AST 17 (5-37) U/L ALT 21 (0-40) U/L Alkaline Phosphatase 387 H (39-117) U/L Albumin 2.5 L (3.5-5.0) g/dL All other labs normal. Assessment and Plan (1) Foot abscess, right: Status: Acute He appears to have an Dm foot infections with abscess and open wounds. His xray shows subcutaneous air in the plantar area but this appears to be secondary to air tracking through the open wounds. He has mildly elevated lactate from the acute infection. I explained to him that it is best to open up this entire area on the plantar aspect and medial aspect. He does not have any sensation on the foot so I told him we can do this at bedside. I reviewed with him the technique of the procedure. He had given verbal consent. I prepped and draped the medial and plantar aspect of the right foot. I enlarged the open wound with scissors and proceeded to unroof this entire area to drain pus. He did have some gangrenous areas of the subcutaneous fat, but the fasica and muscle underneath appeared viable and with good bleeding. Since he did not have good sensation, I was able to do aggressive I and D and sharp excision debridement to unroof this area and open up possible collections. I excised skin and subcutaneous tissue, and he had an open wound about 12 cm long by 7 cm wide. There was good oozing from the open wound. I applied wet to dry dressings to the open area and wrapped this with Kerlix roll. I explained to him that in view of his DM, I am undercertain as to how well we can control the infection. I will reevaluate this daily, and may repeat debridement, whether at bedside or under anesthesia depending on how the would looks daily. He should be started on antibiotics for gm neg coverage as well. His blood sugars should be controlled. He should be hydrated for possible sepsis in view of this DM foot infections. The rest of the deeper layers appear viable, but I will examine this closely daily to make sure that the infection is well controlled.I did explain to him that if the infection is not well controlled, he may require BKA down the line. As per the ED, the pt will be admitted to the hospitalist service. The patient otherwise looks comfortable and not toxic looking. He is hemodynamically stable. Time Spent With Patient Time: Total time managing care of this patient today ____ minutes. Procedures Date of Service Date of Service: 06/27/22
[2022-06-27 16:57] VITALS: BP 139/72; PULSE 109; RESP 16; TEMP 37.7; O2SAT 97
[2022-06-27] MEDS: Piperacillin Sodium/Tazobactam 3.375 GM in 0.9 % Sodium Chloride 50 ML IV ×2 (16:59→23:41)
[2022-06-27] MEDS: 0.9 % Sodium Chloride 2,000 ML 999 ML IVCONT (16:59)
[2022-06-27 17:01] VITALS: BP 142/68; PULSE 86; RESP 18; TEMP 36.5; O2SAT 96
--- NOTE | 2022-06-27 17:23 | PHA.MEDREC ---
Pharmacy Consult ? Medication Reconciliation Pharmacy has completed the medication reconciliation.
--- NOTE | 2022-06-27 17:59 | PHA.PROG ---
Admission Date/Time: Indication: BACTEREMIA Weight in k.326 kg Adjusted body weight in K.77 [place] body weight in Kg: Obesity Dosing Indication % IBW: Serum Creatinine - Last 168 Hours 06/27/22 15:58 Creatinine 1.98 H Estimated CrCl and GFR - Last 168 Hours 06/27/22 15:58 Estim Creat Clear Calc 51.6 Estimated GFR 36 Vancomycin Loading Dose: 2000MG Current Vancomycin Dosing Regimen: 1000 MG Q24 Vancomycin Monitoring using AUC goal of 400 - 600 range with trough as surrogate marker: AUC 509, TROUGH 14.5 Date and Time for next Vancomycin Level to be drawn: 06/29 @1600 Pharmacist Comments on Vancomycin Plan: Vancomycin dosing will take advantage of [employer] as a clinical decision support tool that uses Bayesian modeling to calculate individual patient's pharmacokinetic parameters and forecast the patient's drug concentration time course with the target goal AUC 24 range of 400 - 600 mg/L/hr.
[2022-06-27 18:05] LABS: Reflex Lactate? Lactic Acid Added
--- NOTE | 2022-06-27 18:40 | P.HPHOSP_ITS ---
History of Present Illness Date of Service: 06/27/22 Chief Complaint: Infected diabetic foot ulcers 51-year-old male with history of diabetes who presents to the emergency department with right foot pain.? He has known infected right foot ulcer and was admitted on 05/28 for IV Abx but left AMA the next day and reports now that the foot has been progressively become more infected and ulcerated for the last 2 weeks. On last admission MRI showed no osteo. Foot xray Extensive soft tissue gas, predominantly seen in the plantar soft tissues of the midfoot, highly suspicious for necrotizing fasciitis. This has been evaluated by Dr. Keane and debrided and deemed no necrotizing fascitis Review of Systems Review of Systems: Gen: no fever Resp: no sob, no cough CV: no chest, no WIGGINS, no leg edema GI: No n/v, no abd pain Neuro: No confusion pain in the foot [facility] Medical History Asthma Benign essential hypertension Callus under metatarsal head Chronic painful diabetic neuropathy Diabetes mellitus Diabetic foot Diabetic ulcer of foot associated with diabetes mellitus due to underlying condition, with fat layer exposed Dry gangrene Foot abscess, right Hyperlipidemia LDL goal <100 Lumbar degenerative disc disease Neuropathy Obesity Obesity (BMI 30-39.9) Osteomyelitis of ankle or foot, acute Osteomyelitis of left foot Pure hypercholesterolemia Smoker Umbilical hernia Family History Father Medical history unknown Mother Asthma Hypertension Diabetes Brother Chronic mental illness Diabetes Surgical History H/O hernia repair Status post amputation of left great toe Status post debridement Status post incision and drainage Status post incision and drainage Social History Household Members: Significant Other Household Members Other:: girlfriend Housing: Apartment Do you presently have visiting nurse or other home services: No Alcohol intake: former Patient Tobacco Use Status: Current everyday Tobacco user Tobacco use type: Cigarette Cigarette Packs Per Day: 0.5 Cigarettes Per Day: 10.0 Years Smoked: 30 Smoked in Last 30 Days: Yes Patient Interested in Nicotine Replacement: Yes Patient Given Instructions on How to Stop Smoking: Yes Date Education Initiated: 06/27/22 Second Hand Smoke Exposure: Yes Use of substances other than those prescribed or required for medical reasons: No Substance Use Type: Marijuana Currently Displaying Signs/Symptoms of Drug Intoxication Withdrawal: No Have you been hit, kicked, punched, or otherwise hurt by someone within the past year? If so, by whom?: No Do you feel safe in your current relationship?: Yes Is there a partner from a previous relationship who is making you feel unsafe now?: No Are you made to feel afraid or neglected: No Advance Directives: Yes Advance Directives on File: Yes Advance Directives Date on File: 05/30/20 Do you have thoughts of harming others: None Do you have a plan to hurt others: No Plan Recently lost weight without trying: No Nutrition Risks: No Nutritional Risk Poor oral hygiene: No service: No Current occupational status: employed Meds Allergies Allergy/AdvReac Type Severity Reaction Status Date / Time gabapentin AdvReac Intermediate nausea, Verified 06/09/22 09:51 dizziness Active Medications: Current Medications Vancomycin HCl 1,000 mg/ (Sodium Chloride) 270 mls @ 270 mls/hr IV Q24H [facility] Pharmacy Consult (Consult Rx Vancomycin Dosing) 1 each MISCELLANE DAILY PRN PRN Reason: Consult order Pharmacy Consult (Consult Rx Perform Med Rec) 1 each MISCELLANE ONCE PRN PRN Reason: Consult order Home Medications Medication Instructions Recorded Confirmed Last Taken Type insulin syringe-needle U-100 0.3 #10 ea 06/19/20 03/02/22 Unknown History mL 31 gauge x 5/16 lancets 28 gauge #100 ea 06/19/20 03/02/22 Unknown History ibuprofen 200 mg tablet 200 mg PO Q6H PRN Pain 05/28/22 06/27/22 Unknown History Physical Exam Vital Signs and Narrative: Vital Signs: Last Vital Signs Temp 97.7 F 06/27/22 17:01 Pulse 86 06/27/22 17:01 Resp 18 06/27/22 17:01 BP 142/68 H 06/27/22 17:01 Pulse Ox 96 06/27/22 17:01 O2 Del Method 06/27/22 17:01 BMI result Body Mass Index 34.9 Const: Other: Constitutional: Alert, in no distress, overweight. Mental Status: Oriented to person, place and time. Eyes: Pupils are equal, round and reactive to light. Ear, Nose and Throat: Oropharynx clear, mucous membranes moist. Ears and nose without eformities. Trachea midline. Respiratory: Clear to auscultation. No wheezing, rales or rhonchi. Cardiovascular: S1 S2 regular. No murmurs, rubs or gallops. Gastrointestinal: Abdomen soft, non-tender, non-distended. Normal bowel sounds.? Neurologic: Cranial nerves II-XII grossly intact. No focal neurological deficits. Moves all extremities spontaneously.? Skin: right foot ulcer, foul smelling, see Musculoskeletal: No cyanosis or clubbing. Psychiatric: Normal mood and affect? Results Labs CBC and Chem 7: 06/28/22 05:29 06/28/22 05:29 Labs: Laboratory Results - last 24 hr 06/27/22 06/27/22 06/27/22 15:57 15:57 15:58 MCV 81.3 MCH 25.8 L MCHC 31.8 RDW 13.2 Plt Count TNP MPV 11.3 Immature Gran % (Auto) 2.2 H Neut % (Auto) 91.4 H Lymph % (Auto) 1.9 L Coleman % (Auto) 3.9 Eos % (Auto) 0.2 Baso % (Auto) 0.4 Lymph # (Auto) 0.5 L Coleman # (Auto) 1.0 Eos # (Auto) 0.0 Baso # (Auto) 0.1 Abs Immat Gran (auto) 0.57 H Absolute Neuts (auto) 23.3 H Absolute Nucleated RBC 0.000 Nucleated RBC % (auto) 0.0 Smear Tech's Comments VERIFIED Anion Gap Estim Creat Clear Calc Estimated GFR Random Glucose Lactic Acid Calcium Magnesium Total Bilirubin AST ALT Alkaline Phosphatase Troponin I High Sens Total Protein Albumin COVID-19 (KURT) Negative COVID-19 Clin Com See Note Influenza Type A (GLENN) Negative Influenza Type B (GLENN) Negative Influenza A & B Note See Note 06/27/22 06/27/22 06/27/22 15:58 15:58 15:58 MCV MCH MCHC RDW Plt Count MPV Immature Gran % (Auto) Neut % (Auto) Lymph % (Auto) Coleman % (Auto) Eos % (Auto) Baso % (Auto) Lymph # (Auto) Coleman # (Auto) Eos # (Auto) Baso # (Auto) Abs Immat Gran (auto) Absolute Neuts (auto) Absolute Nucleated RBC Nucleated RBC % (auto) Smear Tech's Comments Anion Gap 17 Estim Creat Clear Calc 51.6 Estimated GFR 36 Random Glucose 308 H Lactic Acid 2.2 H* Calcium 7.9 L Magnesium 2.2 Total Bilirubin 0.5 AST 17 ALT 21 Alkaline Phosphatase 387 H Troponin I High Sens 14.0 Total Protein 6.0 L Albumin 2.5 L COVID-19 (KURT) COVID-19 Clin Com Influenza Type A (GLENN) Influenza Type B (GLENN) Influenza A & B Note Imaging Radiologist's Impressions: Impressions Chest X-Ray 06/27/22 15:35 IMPRESSION: No acute pulmonary disease. Foot X-Ray 06/27/22 15:35 IMPRESSION: Extensive soft tissue gas, predominantly seen in the plantar soft tissues of the midfoot, highly suspicious for necrotizing fasciitis. The findings and specific concern for necrotizing fasciitis were discussed with Anh Lo MD by telephone at 06/27/2022 4:11 PM and it was ascertained that the content and urgency of the report was understood at the time of direct communication. Assessment and Plan (1) Diabetic foot ulcer: Status: Acute (2) Acute kidney injury: Status: Acute Plan 51-year-old male history of diabetes, hypertension, hyperlipidemia, chronic foot ulcers who presents to the emergency department with increasing infected right diabetic foot ulcer, previously no osteo Right diabetic foot ulcer--with finding as reported on xray above, debrided, marked leukocytosis but doesn't meet SIRS -Broad spec Abx (Vanco and Cefepime) -Surgery consult -ID consult -proabably need repeat MRI of the foot DM per pharmacy has not been filling medication follow POCs SSI, ADA diet CKD3 with SHI, IVF an repeat tomorrow tobacco dependence smoking cessation advised NRT DVT ppx - lovenox ?patient will likely require 2 midnight stay in the hospital for management of diabetic foot wound and possible osteomyelitis requiring IV antibiotics, MRI and surgical evaluation Time Spent With Patient Time: Total time managing care of this patient today ____ minutes. Quality Stroke Does the patient have a stroke diagnosis?: No VTE Prior VTE?: No VTE Risk Level:: Medical - moderate - high VTE Device Contraindication: Treatment Not Indicated VTE Drug Contraindication: N/A - Med Ordered
--- OUTSIDE RECORDS SUMMARY | 2022-06-27 19:19 | XMS_ITS | Continuity of Care Document ---
:1970 Author Organization [facility] Address [address] [place] [id number]- Care Team Providers Name Role Phone Gabe Chisholm MD Primary Care Physician [place] [facility] [place] 02/02/22 [facility] [address] [place] [id number] Attending Physician: Roxana TREADWELL, Marc Admitting Physician: Roxana TREADWELL, Marc Referring Physician: Shiva Sánchez MD , Antonina Allergies, Adverse Reactions, Alerts Substance Reaction Severity Status penicillin hives Active Medications Albuterol 0, 0, 02/23/06 9:57:48, Print FORD Number, Constant Indicator Start Date: 02/23/06 Status: Orderedalbuterol 90 mcg/inh inhalation aerosol See Instructions, 2, 0, 0, 05/02/08 18:41:00, 2 puffs Q2-4 hours prn cough, wheeze, SOB, Print FORD Number, ADS OPPTHS, [facility] [address] [place] [address], Constant Indicator Start Date: 05/02/08 Status: Orderedalbuterol 90 mcg/inh inhalation aerosol 2, puffs, Inhalation, 4 times a day, Scheduled / PRN, 34, Gm, 4, 4, 02/24/06 9:56:42, as needed for wheezing, Print FORD Number, 65 Start Date: 02/24/06 Status: Orderedalbuterol CFC free 90 mcg/inh inhalation aerosol 1 puffs, Inhalation, 4 times a day, PRN for wheezing, # 25 Gm, 0 Refills, Maintenance, Aerosol Start Date: 06/18/12 Status: Orderedalbuterol CFC free 90 mcg/inh inhalation aerosol 2 puffs, Inhalation, Every 4 hours, PRN for wheezing, # 8.5 Gm, 0 Refills, Maintenance, Aerosol Start Date: 03/05/10 Status: OrderedBactrim DS 800 mg-160 mg oral tablet 2 tablet, By Mouth, 2 times a day, # 28 tablet, 0 Refills, Tablet Start Date: 08/15/09 Stop Date: 08/22/09 Status: OrderedCPAP Machine 0, 0, 02/23/06 9:56:59, Current med (Hx) Start Date: 02/23/06 Status: OrderedFlovent HFA 1, puffs, Inhalation, 2 times a day, 1 each, 0, 0, 05/02/08 18:41:21, Print FORD Number, ADS OPPT, [facility] [address] [place] [address], [id number], Constant Indicator Start Date: 05/02/08 Status: Orderedfluticasone CFC free 220 mcg/inh inhalation aerosol with adapter 1 puffs, Inhalation, 2 times a day, # 12 Gm, 0 Refills, Maintenance, Aerosol Start Date: 06/18/12 Status: OrderedGlucophage 500 mg oral tablet 1 tablet, By Mouth, 2 times a day, # 40 tablet, 0 Refills, Tablet Start Date: 08/15/09 Stop Date: 09/14/09 Status: OrderedGlucose Monitor See Instructions, 0, 0, 02/24/06 9:57:37, disp one glucose monitor., Zoë,[facility] Start Date: 02/24/06 Status: OrderedGlucose Test Strips See Instructions, 120, 5, 5, 02/24/06 9:57:40, to test blood sugar TID, [facility] Start Date: 02/24/06 Status: OrderedIbuprofen 800, mg, By Mouth, 3 times a day, Scheduled / PRN, 21, 0, 0, 02/24/06 9:59:52, as needed for pain, Print FORD Number, 68 Start Date: 02/24/06 Stop Date: 03/03/06 Status: Orderedibuprofen 600 mg oral tablet 1 tablet = 600 mg, By Mouth, Every 6 to 8 hours, PRN as needed for pain, with food, # 20 tablet, 0 Refills, Maintenance Start Date: 03/01/12 Status: OrderedLancets See Instructions, 5, 5, 02/24/06 9:57:46, to test blood sugar Zoë ESCOBAR Hlyke,[facility] Start Date: 02/24/06 Status: OrderedLevaquin Tablet 500, mg, By Mouth, Every 24 hours, 10, tablet, 0, 0, 03/05/08 12:00:44, Print FORD Number, ADS OPPT, [address] [address], 46, Constant Indicator Start Date: 03/05/08 Stop Date: 03/15/08 Status: OrderedMetformin 500, mg, By Mouth, 2 times a day, 60, 3, 3, 02/24/06 9:49:21, Take 1 a day for one week, then increase to two a day. , Print FORD Number, [id number], Constant Indicator Start Date: 02/24/06 Status: Orderedmetformin 500 mg oral tablet 1 tablet = 500 mg, By Mouth, 2 times a day, # 60 tablet, 0 Refills, Maintenance Start Date: 06/18/12 Status: Orderedmetformin 500 mg oral tablet See Instructions, 1 tablet By Mouth once a day, # 7 tablet, 0 Refills, Maintenance Start Date: 06/18/12 Status: OrderedMotrin 800 mg oral tablet = 800 mg, By Mouth, 3 times a day, # 30 Doses, 0 Refills, Maintenance Start Date: 04/21/11 Status: OrderedPercocet-2.5/325 325 mg-2.5 mg oral tablet 1, tablet, By Mouth, Every 6 hours, 8, tablet, 0, 0, 04/25/07 17:21:27, Print FORD Number, ADS OPPTHS, 54, Constant Indicator Start Date: 04/25/07 Stop Date: 04/27/07 Status: OrderedPercocet-5 Tablet 1- 2 tablets, By Mouth, Every 4 hours, Scheduled / PRN, 20, tablet, 0, 0, 03/05/08 12:01:25, as needed for pain, (not to exceed 4000 mg acetaminophen per day), Print FORD Number, ADS OPPTHS, [address] [address], 51 Start Date: 03/05/08 Status: OrderedPercocet-5/325 325 mg-5 mg oral tablet 1 or 2 tablet, By Mouth, Every 6 hours, PRN Pain, # 12 tablet, 0 Refills, Maintenance Start Date: 03/01/12 Status: OrderedPercocet-5/325 325 mg-5 mg oral tablet 1, tablet, By Mouth, Every 6 hours, 8, tablet, 0, 0, 04/25/07 17:21:40, Print FORD Number, ADS OPPTHS, 54, Constant Indicator Start Date: 04/25/07 Stop Date: 04/27/07 Status: OrderedPercocet-5/325 325 mg-5 mg oral tablet 2 tablet, By Mouth, Every 6 hours, PRN Pain, # 24 tablet, 0 Refills, Maintenance Start Date: 10/03/10 Status: OrderedPercocet-5/325 325 mg-5 mg oral tablet 1 tablet, By Mouth, Every 4 hours, PRN Pain, # 15 tablet, 0 Refills, Tablet Start Date: 08/15/09 Stop Date: 08/22/09 Status: Orderedprednisone 20 mg oral tablet 2 tablet = 40 mg, By Mouth, Daily, # 10 tablet, 0 Refills, Maintenance, Tablet Start Date: 03/05/10 Stop Date: 03/10/10 Status: OrderedTylenol with Codeine #3 Tablet (300mg/30mg) 1, tablet, By Mouth, Daily at bedtime, Scheduled / PRN, 24, tablet, 0, 0, 02/24/06 10:00:33, as needed for pain, Print FORD Number, 144 Start Date: 02/24/06 Status: OrderedTylox 500 mg-5 mg oral capsule 1 capsule, By Mouth, Every 6 hours, # 15 capsule, 0 Refills, Maintenance Start Date: 04/21/11 Status: OrderedVentolin HFA 108 mcg/inh inhalation aerosol with adapter 2 puffs, Inhalation, 4 times a day, # 1 each, 0 Refills Start Date: 05/20/09 Stop Date: 06/18/09 Status: OrderedVicodin 500 mg-5 mg oral tablet 1, tablet, By Mouth, Every 4 hours, Scheduled / PRN, 24, tablet, 0, 0, 05/02/08 18:41:06, as needed for pain, Print FORD Number, ADS OPPTHS, [facility] [address] [place] [address], 51 Start Date: 05/02/08 Status: Ordered Problem List Condition Effective Dates Status Health Status Informant Decreased vision(Confirmed) Active
--- OUTSIDE RECORDS SUMMARY | 2022-06-27 19:19 | XMS_ITS | Continuity of Care Document ---
:1970 Author Organization [facility] Address [address] [place] [id number]- Care Team Providers Name Role Phone Gabe Chisholm MD Primary Care Physician Encounter [facility] [place] Date(s): 11/29/21 - 01/21/22 [facility] [address] [place] [id number] Attending Physician: Park Nielson MD Admitting Physician: Park Nielson MD Referring Physician: Gabe Chisholm MD Allergies, Adverse Reactions, Alerts Substance Reaction Severity Status penicillin hives Active Medications Albuterol 0, 0, 02/23/06 9:57:48, Print FORD Number, Constant Indicator Start Date: 02/23/06 Status: Orderedalbuterol 90 mcg/inh inhalation aerosol See Instructions, 2, 0, 0, 05/02/08 18:41:00, 2 puffs Q2-4 hours prn cough, wheeze, SOB, Print FORD Number, ADS OPPTHS, [facility] [address] [place] [address], Constant Indicator Start Date: 05/02/08 Status: Orderedalbuterol [...] 05/02/08 18:41:21, Print FORD Number, ADS OPPT, [facility] [address] [place] [address], [id number], Constant Indicator Start Date: 05/02/08 Status: Orderedfluticasone [...] 0, 02/24/06 9:57:37, disp one glucose monitor., Zoëclaus,[facility] Start Date: 02/24/06 Status: OrderedGlucose Test Strips See Instructions, 120, 5, 5, 02/24/06 9:57:40, to test blood sugar TIDZoëclaus,[facility] Start Date: 02/24/06 Status: OrderedIbuprofen 800, [...] 9:57:46, to test blood sugar Zoë ESCOBAR Hlyke,[facility] Start Date: 02/24/06 Status: OrderedLevaquin Tablet 500, mg, By Mouth, Every 24 hours, 10, tablet, 0, 0, 03/05/08 12:00:44, Print FORD Number, ADS OPPT, [address] [address], 46, Constant Indicator Start Date: 03/05/08 Stop Date: 03/15/08 Status: OrderedMetformin 500, mg, By Mouth, 2 times a day, 60, 3, 3, 02/24/06 9:49:21, Take 1 a day for one week, then increase to two a day. , Print FORD Number, [id number], Constant Indicator Start Date: 02/24/06 Status: Orderedmetformin [...] per day), Print FORD Number, ADS OPPTHS, [address] [address], 51 Start Date: 03/05/08 Status: OrderedPercocet-5/325 325 [...] for pain, Print FORD Number, ADS OPPTHS, [facility] [address] [place] [address], 51 Start Date: 05/02/08 Status: Ordered Problem List Condition Effective Dates Status Health Status Informant Decreased vision(Confirmed) Active
--- OUTSIDE RECORDS SUMMARY | 2022-06-27 19:19 | XMS_ITS | Continuity of Care Document ---
:1970 Author Organization [facility] Address [address] [place] [id number]- Care Team Providers Name Role Phone Gabe Chisholm MD Primary Care Physician Encounter [facility] [place] Date(s): 12/22/21 - 01/21/22 [facility] [address] [place] [address] Attending Physician: Admtr, Ar8 Admitting Physician: Admtr, Ar8 Referring Physician: Admtr, Ar8 Allergies, Adverse Reactions, Alerts Substance Reaction Severity Status penicillin hives Active Medications Albuterol 0, 0, 02/23/06 9:57:48, Print FORD Number, Constant Indicator Start Date: 02/23/06 Status: Orderedalbuterol 90 mcg/inh inhalation aerosol See Instructions, 2, 0, 0, 05/02/08 18:41:00, 2 puffs Q2-4 hours prn cough, wheeze, SOB, Print FORD Number, ADS OPPTHS, [facility] [address] [place] [address], Constant Indicator Start Date: 05/02/08 Status: Orderedalbuterol [...] 05/02/08 18:41:21, Print FORD Number, ADS OPPT, [facility] [address] [place] [address], [id number], Constant Indicator Start Date: 05/02/08 Status: Orderedfluticasone [...] 0, 02/24/06 9:57:37, disp one glucose monitor., Eric Camp,[facility] Start Date: 02/24/06 Status: OrderedGlucose Test Strips See Instructions, 120, 5, 5, 02/24/06 9:57:40, to test blood sugar TIDZoë Hlyke,[facility] Start Date: 02/24/06 Status: OrderedIbuprofen 800, [...] 9:57:46, to test blood sugar Zoë ESCOBAR Hlyke,[facility] Start Date: 02/24/06 Status: OrderedLevaquin Tablet 500, mg, By Mouth, Every 24 hours, 10, tablet, 0, 0, 03/05/08 12:00:44, Print FORD Number, ADS OPPT, [address] [address], 46, Constant Indicator Start Date: 03/05/08 Stop Date: 03/15/08 Status: OrderedMetformin 500, mg, By Mouth, 2 times a day, 60, 3, 3, 02/24/06 9:49:21, Take 1 a day for one week, then increase to two a day. , Print FORD Number, [id number], Constant Indicator Start Date: 02/24/06 Status: Orderedmetformin [...] per day), Print FORD Number, ADS OPPTHS, [address] [address], 51 Start Date: 03/05/08 Status: OrderedPercocet-5/325 325 [...] for pain, Print FORD Number, ADS OPPTHS, [facility] [address] [place] [address], 51 Start Date: 05/02/08 Status: Ordered Problem List Condition Effective Dates Status Health Status Informant Decreased vision(Confirmed) Active
[2022-06-27 19:42] LABS: ~Lactic Acid-LAB USE ONLY 1.3 mmol/L (0.5-2.0)
[2022-06-27] MEDS: Morphine Sulfate 4 MG/ML CARTRIDGE IVPUSH (20:32)
[2022-06-27 20:35] LABS: Appearance Urine Cloudy; Color Urine Dark Yellow; Glucose Urine UA 500 mg/dL (Negative); Leukocyte Esterase Urine Small (1+) (Negative); Nitrite Urine Positive (Negative); PH 5.5 (5.0-9.0); UMIC TRIGGER UACC YES; Urine Blood Moderate (2+) (Negative); Urine Ketones Negative (Negative); Urine Protein 300 (3+) mg/dL (Neg-Trace)
[2022-06-27 21:04] LABS: Bacteria Urine 2+ (None Seen); Granular Casts Urine Present; Hyaline Casts Urine 0-2 /LPF (0-2); UACC Culture Trigger YES; WBC Urine 21-50 /HPF (0-5)
[2022-06-27 21:49] LABS: Glucose, Whole Blood 355 mg/dL (60-115)
[2022-06-27 22:18] VITALS: BP 159/92; PULSE 93; RESP 18; TEMP 36.8; O2SAT 96
[2022-06-27] MEDS: Insulin Regular, Human 100 UNIT/ML 3 ML VIAL 10 UNIT IVPUSH (22:35)
--- NOTE | 2022-06-27 22:39 | PC.NURSE ---
Dr. Thomas aware of 355 blood sugar- okay to give regular insulin 10u IV that was previously ordered per Dr. Thomas, patient resting on stretcher, skin pwd, resp even and non labored, speaking in full, clear sentences. large amount of strikethrough to dressing on right foot. report to Maria C GARNER
[2022-06-27 23:24] LABS: Glucose, Whole Blood 220 mg/dL (60-115)
[2022-06-27] MEDS: Docusate Sodium 100 MG CAPSULE PO (23:50)
[2022-06-28 00:02] VITALS: BMI 34.9
[2022-06-28] MEDS: Morphine Sulfate 4 MG/ML CARTRIDGE IVPUSH ×2 (00:26→13:47)
[2022-06-28 03:56] VITALS: BP 140/76; PULSE 98; RESP 17; TEMP 36.7; O2SAT 92
[2022-06-28] MEDS: Piperacillin Sodium/Tazobactam 3.375 GM in 0.9 % Sodium Chloride 50 ML IV ×4 (05:14→23:35)
[2022-06-28 06:17] LABS: Basophils Absolute Auto 0.1 X10*3/uL (0.0-0.2); Basophils Percent Auto 0.5 % (0-2); Eosinophils Absolute Auto 0.1 X10*3/uL (0.0-0.4); Eosinophils Percent Auto 0.4 % (0-4); Hematocrit 26.1 % (42.0-52.0); Hemoglobin 8.1 g/dl (14.0-18.0); Imm Gran Abs Auto 0.41 X10*3/uL (0.00-0.03); Imm Gran Pct Auto 1.7 % (0.0-0.4); MANUAL DIFF FLAG SCAN; Mean Corpuscular Hemoglobin 25.6 pg (27.0-33.0); Mean Corpuscular Volume 82.6 fL (80.0-98.0); Mean Platelet Volume 11.4 fL (9.4-12.4); Monocytes Percent Auto 8.2 % (2-11); Neutrophils Absolute Auto 20.8 x10*3/uL (2.0-8.3); Neutrophils Percent Auto 85.2 % (45-73); Platelet Count 430 X10*3/uL (160-400); Red Blood Count 3.16 X10*6/uL (4.60-5.80); Red Cell Distribution Width 13.2 % (11.0-16.0); SCAN SMEAR FLAG 1; White Blood Count 24.4 X10*3/uL (4.8-10.8)
[2022-06-28 06:23] LABS: Anion Gap 15 (12-20); Blood Urea Nitrogen 36 mg/dL (9-16); Calcium 7.4 mg/dL (8.4-10.2); Carbon Dioxide 24 mmol/L (22-29); Chloride 103 mmol/L (96-108); Creatinine Clr Calc Pharmacy 66.4; Estimated Glomerular Filt Rate 48; Glucose Random 192 mg/dL (60-115); Potassium 4.8 mmol/L (3.3-5.1); Sodium 137 mmol/L (135-145)
[2022-06-28 06:41] LABS: SLIDE REVIEW VERIFIED
--- NOTE | 2022-06-28 07:33 | HE.PHANOTE ---
Vancomycin Dosing Patient's renal function is rapidly improving. Will increase dose to 1250 mg Q24H. Level still to be drawn 06/29 @ 1600. Soledad HernandezD
[2022-06-28 07:54] VITALS: BP 143/93; PULSE 106; RESP 17; TEMP 37.5; O2SAT 93
[2022-06-28 08:32] LABS: Glucose, Whole Blood 153 mg/dL (60-115)
--- NOTE | 2022-06-28 08:44 | P.PNGS_ITS ---
Subjective Subjective Date of Service: 06/29/22 Interval history: denies complaints some pain on debridement site of the left foot no fever this morning Physical Exam Vital Signs: Vital Signs: Last Vital Signs Temp 99.5 F 06/28/22 07:54 Pulse 106 H 06/28/22 07:54 Resp 17 06/28/22 07:54 BP 143/93 H 06/28/22 07:54 Pulse Ox 93 06/28/22 07:54 O2 Del Method 06/28/22 07:54 BMI result Body Mass Index 34.9 Const: Other: looks comfortable, very conversant General: comfortable and no acute distress Resp: Effort & Inspection: normal respiratory effort Cardio: Rhythm: regular rhythm GI: Palpation (GI): Soft to palpation Extrem: Other: open wound, right foot medial and plantar, debrided yesterday, muscle exposed, viable, some tenderness also exposed, still with a little bit of thick fibrinous debris, Objective Data Active Medications Acetaminophen (Acetaminophen 325 Mg Tablet) 650 mg PO Q6H PRN PRN Reason: Pain, Mild (Pain Scale 1-3) Dextrose (Dextrose 50 % 25 Gm/50 Ml Syringe) 25 gm IVPUSH Q15M PRN; Protocol PRN Reason: per Hypoglycemia Standing Ord. Docusate Sodium (Docusate Sodium 100 Mg Capsule) 100 mg PO BID [facility] Last Admin: 06/27/22 23:50 Dose: 100 mg Documented By: RIDGE Glucose (Glucose Gel 15 Gm Gel..Gram.) 15 gm PO Q15M PRN; Protocol PRN Reason: per Hypoglycemia Standing Ord. Vancomycin HCl 1,250 mg/ (Sodium Chloride) 250 mls @ 166.667 mls/hr IV Q24H [facility] Piperacillin Sod/Tazobactam (Sod 3.375 gm/ Sodium Chloride) 50 mls @ 100 mls/hr IV Q6H [facility] Last Infusion: 06/28/22 05:54 Dose: 0 mls/hr Documented By: RIYA Insulin Human Lispro (Insulin Lispro 100 Unit/Ml 3 Ml Vial) 0 unit SUBCUT QIDACHS [facility]; Protocol Melatonin (Melatonin 3 Mg Tablet) 6 mg PO BEDTIME PRN PRN Reason: Insomnia Morphine Sulfate (Morphine Sulfate 4 Mg/Ml Cartridge) 4 mg IVPUSH Q4H PRN; Protocol PRN Reason: Pain, Severe (Pain Scale 7-10) Last Admin: 06/28/22 00:26 Dose: 4 mg Documented By: RIDGE Ondansetron HCl (Ondansetron Hcl 4 Mg/2 Ml Vial) 4 mg IVPUSH Q8H PRN PRN Reason: Nausea and Vomiting Pharmacy Consult (Consult Rx Vancomycin Dosing) 1 each MISCELLANE DAILY PRN PRN Reason: Consult order Pharmacy Consult (Consult Rx Perform Med Rec) 1 each MISCELLANE ONCE PRN PRN Reason: Consult order Labs CBC & Chem 7: 06/29/22 05:37 06/29/22 05:37 Labs: Laboratory Results - last 24 hr 06/27/22 06/27/22 06/27/22 15:57 15:57 15:58 MCV 81.3 MCH 25.8 L MCHC 31.8 RDW 13.2 Plt Count TNP MPV 11.3 Immature Gran % (Auto) 2.2 H Neut % (Auto) 91.4 H Lymph % (Auto) 1.9 L [place] % (Auto) 3.9 Eos % (Auto) 0.2 Baso % (Auto) 0.4 Lymph # (Auto) 0.5 L [place] # (Auto) 1.0 Eos # (Auto) 0.0 Baso # (Auto) 0.1 Abs Immat Gran (auto) 0.57 H Absolute Neuts (auto) 23.3 H Absolute Nucleated RBC 0.000 Nucleated RBC % (auto) 0.0 Smear Tech's Comments VERIFIED Anion Gap Estim Creat Clear Calc Estimated GFR POC Glucose Random Glucose Lactic Acid Lactic Acid F/U @ 2Hr Calcium Magnesium Total Bilirubin AST ALT Alkaline Phosphatase Troponin I High Sens Total Protein Albumin Urine Color Urine Appearance Urine pH Ur Specific [place] Urine Protein Urine Glucose (UA) Urine Ketones Urine Blood Urine Nitrite Ur Leukocyte Esterase Urine RBC Urine WBC Ur Squamous Epith Cells Urine Bacteria Hyaline Casts Granular Casts COVID-19 (KURT) Negative COVID-19 Clin Com See Note Influenza Type A (GLENN) Negative Influenza Type B (GLENN) Negative Influenza A & B Note See Note 06/27/22 06/27/22 06/27/22 15:58 15:58 15:58 MCV MCH MCHC RDW Plt Count MPV Immature Gran % (Auto) Neut % (Auto) Lymph % (Auto) [place] % (Auto) Eos % (Auto) Baso % (Auto) Lymph # (Auto) [place] # (Auto) Eos # (Auto) Baso # (Auto) Abs Immat Gran (auto) Absolute Neuts (auto) Absolute Nucleated RBC Nucleated RBC % (auto) Smear Tech's Comments Anion Gap 17 Estim Creat Clear Calc 51.6 Estimated GFR 36 POC Glucose Random Glucose 308 H Lactic Acid 2.2 H* Lactic Acid F/U @ 2Hr Calcium 7.9 L Magnesium 2.2 Total Bilirubin 0.5 AST 17 ALT 21 Alkaline Phosphatase 387 H Troponin I High Sens 14.0 Total Protein 6.0 L Albumin 2.5 L Urine Color Urine Appearance Urine pH Ur Specific [place] Urine Protein Urine Glucose (UA) Urine Ketones Urine Blood Urine Nitrite Ur Leukocyte Esterase Urine RBC Urine WBC Ur Squamous Epith Cells Urine Bacteria Hyaline Casts Granular Casts COVID-19 (KURT) COVID-19 Clin Com Influenza Type A (GLENN) Influenza Type B (GLENN) Influenza A & B Note 06/27/22 06/27/22 06/27/22 19:07 20:25 21:44 MCV MCH MCHC RDW Plt Count MPV Immature Gran % (Auto) Neut % (Auto) Lymph % (Auto) [place] % (Auto) Eos % (Auto) Baso % (Auto) Lymph # (Auto) [place] # (Auto) Eos # (Auto) Baso # (Auto) Abs Immat Gran (auto) Absolute Neuts (auto) Absolute Nucleated RBC Nucleated RBC % (auto) Smear Tech's Comments Anion Gap Estim Creat Clear Calc Estimated GFR POC Glucose 355 H* Random Glucose Lactic Acid Lactic Acid F/U @ 2Hr 1.3 Calcium Magnesium Total Bilirubin AST ALT Alkaline Phosphatase Troponin I High Sens Total Protein Albumin Urine Color Dark Yellow Urine Appearance Cloudy Urine pH 5.5 Ur Specific [place] 1.020 Urine Protein 300 (3+) H Urine Glucose (UA) 500 H Urine Ketones Negative Urine Blood Moderate (2+) H Urine Nitrite Positive H Ur Leukocyte Esterase Small (1+) H Urine RBC 3-5 H Urine WBC 21-50 Ur Squamous Epith Cells 3-5 Urine Bacteria 2+ Hyaline Casts 0-2 Granular Casts Present COVID-19 (KURT) COVID-19 Clin Com Influenza Type A (GLENN) Influenza Type B (GLENN) Influenza A & B Note 06/27/22 06/28/22 06/28/22 23:18 05:29 05:29 MCV 82.6 MCH 25.6 L MCHC 31.0 RDW 13.2 Plt Count 430 H D MPV 11.4 Immature Gran % (Auto) 1.7 H Neut % (Auto) 85.2 H Lymph % (Auto) 4.0 L [place] % (Auto) 8.2 Eos % (Auto) 0.4 Baso % (Auto) 0.5 Lymph # (Auto) 1.0 L [place] # (Auto) 2.0 H Eos # (Auto) 0.1 Baso # (Auto) 0.1 Abs Immat Gran (auto) 0.41 H Absolute Neuts (auto) 20.8 H Absolute Nucleated RBC 0.000 Nucleated RBC % (auto) 0.0 Smear Tech's Comments VERIFIED Anion Gap 15 Estim Creat Clear Calc 66.4 Estimated GFR 48 POC Glucose 220 H Random Glucose 192 H Lactic Acid Lactic Acid F/U @ 2Hr Calcium 7.4 L D Magnesium Total Bilirubin AST ALT Alkaline Phosphatase Troponin I High Sens Total Protein Albumin Urine Color Urine Appearance Urine pH Ur Specific [place] Urine Protein Urine Glucose (UA) Urine Ketones Urine Blood Urine Nitrite Ur Leukocyte Esterase Urine RBC Urine WBC Ur Squamous Epith Cells Urine Bacteria Hyaline Casts Granular Casts COVID-19 (KURT) COVID-19 Clin Com Influenza Type A (GLENN) Influenza Type B (GLENN) Influenza A & B Note 06/28/22 08:28 MCV MCH MCHC RDW Plt Count MPV Immature Gran % (Auto) Neut % (Auto) Lymph % (Auto) [place] % (Auto) Eos % (Auto) Baso % (Auto) Lymph # (Auto) [place] # (Auto) Eos # (Auto) Baso # (Auto) Abs Immat Gran (auto) Absolute Neuts (auto) Absolute Nucleated RBC Nucleated RBC % (auto) Smear Tech's Comments Anion Gap Estim Creat Clear Calc Estimated GFR POC Glucose 153 H Random Glucose Lactic Acid Lactic Acid F/U @ 2Hr Calcium Magnesium Total Bilirubin AST ALT Alkaline Phosphatase Troponin I High Sens Total Protein Albumin Urine Color Urine Appearance Urine pH Ur Specific [place] Urine Protein Urine Glucose (UA) Urine Ketones Urine Blood Urine Nitrite Ur Leukocyte Esterase Urine RBC Urine WBC Ur Squamous Epith Cells Urine Bacteria Hyaline Casts Granular Casts COVID-19 (KURT) COVID-19 Clin Com Influenza Type A (GLENN) Influenza Type B (GLENN) Influenza A & B Note Microbiology Microbiology Results: Microbiology 06/27/22 20:25 Urine Culture - Preliminary Urine clean catch - Urine klein top Culture in progress. Procedures Date of Service Date of Service: 06/28/22 Progress Note: A&P Assessment and plan (1) Diabetic foot ulcer: Status: Acute Assessment and Plan: status post sharp excisional debridement yesterday at bedside I cleaned the wound again this morning -- patient does not have much sensation so able to do this at bedside wet to dry applied he looks comfortable and nontoxic looking I wrapped the foot with Kerlix lower continue wound care IV antibiotics possibly do debridement in the OR tomorrow depending on repeat exam Time Spent With Patient Time: Total time managing care of this patient today ____ minutes. Quality Stroke Does the patient have a stroke diagnosis?: No VTE Prior VTE?: No VTE Risk Level:: Medical - moderate - high VTE Device Contraindication: Treatment Not Indicated VTE Drug Contraindication: N/A - Med Ordered
[2022-06-28] MEDS: Insulin Lispro 100 UNIT/ML 3 ML VIAL SUBCUT ×4 (08:53→21:06)
[2022-06-28] MEDS: Docusate Sodium 100 MG CAPSULE PO ×2 (08:55→21:07)
[2022-06-28] MEDS: Acetaminophen 325 MG TABLET 650 MG PO (08:55)
--- NOTE | 2022-06-28 10:07 | P.PNIM_ITS ---
Subjective Subjective Date of Service: 06/28/22 Interval History: Seen in f/u for diabetic foot ulcer, osteomylitis has some pain but overall better Review of Systems no fever, pain in the foot Physical Exam Vital Signs: Vital Signs: Last Vital Signs Temp 99.5 F 06/28/22 07:54 Pulse 106 H 06/28/22 07:54 Resp 17 06/28/22 07:54 BP 143/93 H 06/28/22 07:54 Pulse Ox 93 06/28/22 07:54 O2 Del Method 06/28/22 07:54 BMI result Body Mass Index 34.9 Const: Other: General: AO X 3, no acute distress Resp: CTA bilateral CVS: S1,S2,RRR GI: +BS, NT, no distention Skin: Neuro: motor grossly intact Psych: appropriate affect Objective Data Active Medications Acetaminophen (Acetaminophen 325 Mg Tablet) 650 mg PO Q6H PRN PRN Reason: Pain, Mild (Pain Scale 1-3) Last Admin: 06/28/22 08:55 Dose: 650 mg Documented By: ADDISON Albuterol Sulfate (Albuterol Sulfate 90 Mcg 8 Gm Inhaler) 2 puff INHALE RQ4H PRN PRN Reason: shortness of breath or wheezing Dextrose (Dextrose 50 % 25 Gm/50 Ml Syringe) 25 gm IVPUSH Q15M PRN; Protocol PRN Reason: per Hypoglycemia Standing Ord. Docusate Sodium (Docusate Sodium 100 Mg Capsule) 100 mg PO BID [facility] Last Admin: 06/28/22 08:55 Dose: 100 mg Documented By: ADDISON Glucose (Glucose Gel 15 Gm Gel..Gram.) 15 gm PO Q15M PRN; Protocol PRN Reason: per Hypoglycemia Standing Ord. Vancomycin HCl 1,250 mg/ (Sodium Chloride) 250 mls @ 166.667 mls/hr IV Q24H [facility] Piperacillin Sod/Tazobactam (Sod 3.375 gm/ Sodium Chloride) 50 mls @ 100 mls/hr IV Q6H [facility] Last Infusion: 06/28/22 05:54 Dose: 0 mls/hr Documented By: RIYA Insulin Human Lispro (Insulin Lispro 100 Unit/Ml 3 Ml Vial) 0 unit SUBCUT QIDACHS [facility]; Protocol Last Admin: 06/28/22 08:53 Dose: 2 unit Documented By: ADDISON Insulin Human Lispro (Insulin Lispro 100 Unit/Ml 3 Ml Vial) 0 unit SUBCUT QIDACHS [facility]; Protocol Melatonin (Melatonin 3 Mg Tablet) 6 mg PO BEDTIME PRN PRN Reason: Insomnia Morphine Sulfate (Morphine Sulfate 4 Mg/Ml Cartridge) 4 mg IVPUSH Q4H PRN; Protocol PRN Reason: Pain, Severe (Pain Scale 7-10) Last Admin: 06/28/22 00:26 Dose: 4 mg Documented By: RIDGE Ondansetron HCl (Ondansetron Hcl 4 Mg/2 Ml Vial) 4 mg IVPUSH Q8H PRN PRN Reason: Nausea and Vomiting Pharmacy Consult (Consult Rx Vancomycin Dosing) 1 each MISCELLANE DAILY PRN PRN Reason: Consult order Pharmacy Consult (Consult Rx Perform Med Rec) 1 each MISCELLANE ONCE PRN PRN Reason: Consult order Pharmacy Consult (Consult Rx Vancomycin Dosing) 1 each MISCELLANE DAILY PRN PRN Reason: Consult order Labs CBC & Chem 7: 06/28/22 05:29 06/28/22 05:29 Labs: Laboratory Results - last 24 hr 06/27/22 06/27/22 06/27/22 15:57 15:57 15:58 MCV 81.3 MCH 25.8 L MCHC 31.8 RDW 13.2 Plt Count TNP MPV 11.3 Immature Gran % (Auto) 2.2 H Neut % (Auto) 91.4 H Lymph % (Auto) 1.9 L [place] % (Auto) 3.9 Eos % (Auto) 0.2 Baso % (Auto) 0.4 Lymph # (Auto) 0.5 L [place] # (Auto) 1.0 Eos # (Auto) 0.0 Baso # (Auto) 0.1 Abs Immat Gran (auto) 0.57 H Absolute Neuts (auto) 23.3 H Absolute Nucleated RBC 0.000 Nucleated RBC % (auto) 0.0 Smear Tech's Comments VERIFIED Anion Gap Estim Creat Clear Calc Estimated GFR POC Glucose Random Glucose Lactic Acid Lactic Acid F/U @ 2Hr Calcium Magnesium Total Bilirubin AST ALT Alkaline Phosphatase Troponin I High Sens Total Protein Albumin Urine Color Urine Appearance Urine pH Ur Specific [place] Urine Protein Urine Glucose (UA) Urine Ketones Urine Blood Urine Nitrite Ur Leukocyte Esterase Urine RBC Urine WBC Ur Squamous Epith Cells Urine Bacteria Hyaline Casts Granular Casts COVID-19 (KURT) Negative COVID-19 Clin Com See Note Influenza Type A (GLENN) Negative Influenza Type B (GLENN) Negative Influenza A & B Note See Note 06/27/22 06/27/22 06/27/22 15:58 15:58 15:58 MCV MCH MCHC RDW Plt Count MPV Immature Gran % (Auto) Neut % (Auto) Lymph % (Auto) [place] % (Auto) Eos % (Auto) Baso % (Auto) Lymph # (Auto) [place] # (Auto) Eos # (Auto) Baso # (Auto) Abs Immat Gran (auto) Absolute Neuts (auto) Absolute Nucleated RBC Nucleated RBC % (auto) Smear Tech's Comments Anion Gap 17 Estim Creat Clear Calc 51.6 Estimated GFR 36 POC Glucose Random Glucose 308 H Lactic Acid 2.2 H* Lactic Acid F/U @ 2Hr Calcium 7.9 L Magnesium 2.2 Total Bilirubin 0.5 AST 17 ALT 21 Alkaline Phosphatase 387 H Troponin I High Sens 14.0 Total Protein 6.0 L Albumin 2.5 L Urine Color Urine Appearance Urine pH Ur Specific [place] Urine Protein Urine Glucose (UA) Urine Ketones Urine Blood Urine Nitrite Ur Leukocyte Esterase Urine RBC Urine WBC Ur Squamous Epith Cells Urine Bacteria Hyaline Casts Granular Casts COVID-19 (KURT) COVID-19 Clin Com Influenza Type A (GLENN) Influenza Type B (GLENN) Influenza A & B Note 06/27/22 06/27/22 06/27/22 19:07 20:25 21:44 MCV MCH MCHC RDW Plt Count MPV Immature Gran % (Auto) Neut % (Auto) Lymph % (Auto) [place] % (Auto) Eos % (Auto) Baso % (Auto) Lymph # (Auto) [place] # (Auto) Eos # (Auto) Baso # (Auto) Abs Immat Gran (auto) Absolute Neuts (auto) Absolute Nucleated RBC Nucleated RBC % (auto) Smear Tech's Comments Anion Gap Estim Creat Clear Calc Estimated GFR POC Glucose 355 H* Random Glucose Lactic Acid Lactic Acid F/U @ 2Hr 1.3 Calcium Magnesium Total Bilirubin AST ALT Alkaline Phosphatase Troponin I High Sens Total Protein Albumin Urine Color Dark Yellow Urine Appearance Cloudy Urine pH 5.5 Ur Specific [place] 1.020 Urine Protein 300 (3+) H Urine Glucose (UA) 500 H Urine Ketones Negative Urine Blood Moderate (2+) H Urine Nitrite Positive H Ur Leukocyte Esterase Small (1+) H Urine RBC 3-5 H Urine WBC 21-50 Ur Squamous Epith Cells 3-5 Urine Bacteria 2+ Hyaline Casts 0-2 Granular Casts Present COVID-19 (KURT) COVID-19 Clin Com Influenza Type A (GLENN) Influenza Type B (GLENN) Influenza A & B Note 06/27/22 06/28/22 06/28/22 23:18 05:29 05:29 MCV 82.6 MCH 25.6 L MCHC 31.0 RDW 13.2 Plt Count 430 H D MPV 11.4 Immature Gran % (Auto) 1.7 H Neut % (Auto) 85.2 H Lymph % (Auto) 4.0 L [place] % (Auto) 8.2 Eos % (Auto) 0.4 Baso % (Auto) 0.5 Lymph # (Auto) 1.0 L [place] # (Auto) 2.0 H Eos # (Auto) 0.1 Baso # (Auto) 0.1 Abs Immat Gran (auto) 0.41 H Absolute Neuts (auto) 20.8 H Absolute Nucleated RBC 0.000 Nucleated RBC % (auto) 0.0 Smear Tech's Comments VERIFIED Anion Gap 15 Estim Creat Clear Calc 66.4 Estimated GFR 48 POC Glucose 220 H Random Glucose 192 H Lactic Acid Lactic Acid F/U @ 2Hr Calcium 7.4 L D Magnesium Total Bilirubin AST ALT Alkaline Phosphatase Troponin I High Sens Total Protein Albumin Urine Color Urine Appearance Urine pH Ur Specific [place] Urine Protein Urine Glucose (UA) Urine Ketones Urine Blood Urine Nitrite Ur Leukocyte Esterase Urine RBC Urine WBC Ur Squamous Epith Cells Urine Bacteria Hyaline Casts Granular Casts COVID-19 (KURT) COVID-19 Clin Com Influenza Type A (GLENN) Influenza Type B (GLENN) Influenza A & B Note 06/28/22 08:28 MCV MCH MCHC RDW Plt Count MPV Immature Gran % (Auto) Neut % (Auto) Lymph % (Auto) [place] % (Auto) Eos % (Auto) Baso % (Auto) Lymph # (Auto) [place] # (Auto) Eos # (Auto) Baso # (Auto) Abs Immat Gran (auto) Absolute Neuts (auto) Absolute Nucleated RBC Nucleated RBC % (auto) Smear Tech's Comments Anion Gap Estim Creat Clear Calc Estimated GFR POC Glucose 153 H Random Glucose Lactic Acid Lactic Acid F/U @ 2Hr Calcium Magnesium Total Bilirubin AST ALT Alkaline Phosphatase Troponin I High Sens Total Protein Albumin Urine Color Urine Appearance Urine pH Ur Specific [place] Urine Protein Urine Glucose (UA) Urine Ketones Urine Blood Urine Nitrite Ur Leukocyte Esterase Urine RBC Urine WBC Ur Squamous Epith Cells Urine Bacteria Hyaline Casts Granular Casts COVID-19 (KURT) COVID-19 Clin Com Influenza Type A (GLENN) Influenza Type B (GLENN) Influenza A & B Note Microbiology Microbiology Results: Microbiology 06/27/22 20:25 Urine Culture - Preliminary Urine clean catch - Urine klein top Culture in progress. Assessment and Plan (1) Diabetic foot ulcer: Status: Acute (2) Acute osteomyelitis of right foot: Status: Acute Plan 51-year-old male history of diabetes, hypertension, hyperlipidemia, chronic foot ulcers who presents to the emergency department with increasing infected right diabetic foot ulcer, previously no osteo Right diabetic foot ulcer--with finding as reported on xray above, debrided, marked leukocytosis but doesn't meet SIRS -Broad spec Abx (Vanco and Zosyn) -Surgery consult -ID consult -MRI show osteo DM per pharmacy has not been filling medication follow POCs SSI, ADA diet will discuss usp meds with him CKD3 with SHI, IVF an repeat tomorrow tobacco dependence smoking cessation advised NRT DVT ppx - lovenox ?patient will likely require 2 midnight stay in the hospital for management of diabetic foot wound and possible osteomyelitis requiring IV antibiotics, MRI and surgical evaluation Time Spent With Patient Time: Total time managing care of this patient today ____ minutes. Quality Stroke Does the patient have a stroke diagnosis?: No VTE Prior VTE?: No VTE Risk Level:: Medical - moderate - high VTE Device Contraindication: Treatment Not Indicated VTE Drug Contraindication: N/A - Med Ordered
[2022-06-28 11:14] LABS: Glucose, Whole Blood 190 mg/dL (60-115)
[2022-06-28] MEDS: Nicotine 14 MG PATCH.TD24 TRANSDERMA (13:48)
--- NOTE | 2022-06-28 14:48 | MHC.CM.PN ---
EMR REVIEWED, PT ADMITTED W/DIABETIC FOOT ULCER, CM MET W/PT WHO REPORTS HE LIVES W/GF, IS INDEP W/ALL CARE, DENIES SERVICES AND DOES NOT ANTIC NEED FOR VNA ON D/C HOWEVER PRELIMINARY BC'S POSITIVE AND FOOT MRI POSITIVE FOR OSTEOMYELITIS AND WILL NEED A PICC LINE AND ANTIC 6WKS OF IV ABX. PT VERIFIES HE PREFERS [facility] AND ALLIED HEALTH. PT VERIFIED PCP SHWETHA GRANT, DENIES BEING VACCINATED BY COVID AND HCP IS SOO JOHNSTON [phone], COPY ON FILE FROM PREVIOUS ADMIT.
[2022-06-28 15:29] VITALS: BP 152/88; PULSE 93; RESP 20; TEMP 37.3; O2SAT 94
--- NOTE | 2022-06-28 15:34 | P.CNID_ITS ---
History of Present Illness Data of Consult Service Date: 06/28/22 Requesting physician: Wyatt Mohamud Primary Care Provider: Gabe Chisholm MD HPI Reason for consult: diabetic right foot infection,OM,bacteremia He presents for worsening right foot infection. He had this for about a month but left 05/28 AMA. He now has gas concern foot and MRI shows OM base first proximal phalanx. He has gram positive cocci in blood. Review of Systems Review of Systems: Yes all other systems are reviewed and are negative [facility] Past Medical History Medical History (Updated 06/28/22 @ 15:38 by Sol Kirkland MD) Asthma Benign essential hypertension Callus under metatarsal head Chronic painful diabetic neuropathy Diabetes mellitus Diabetic foot Diabetic ulcer of foot associated with diabetes mellitus due to underlying condition, with fat layer exposed Dry gangrene Foot abscess, right Gram positive sepsis Hyperlipidemia LDL goal <100 Lumbar degenerative disc disease Neuropathy Obesity Obesity (BMI 30-39.9) Osteomyelitis of ankle or foot, acute Osteomyelitis of left foot Pure hypercholesterolemia Smoker Umbilical hernia Family History Family History Father Medical history unknown Mother Asthma Hypertension Diabetes Brother Chronic mental illness Diabetes Family history: reviewed and not pertinent Surgical History Surgical History H/O hernia repair Status post amputation of left great toe Status post debridement Status post incision and drainage Status post incision and drainage Social History Social History Household Members: Significant Other Household Members Other:: girlfriend Housing: Apartment Do you presently have visiting nurse or other home services: No Alcohol intake: former Patient Tobacco Use Status: Current everyday Tobacco user Tobacco use type: Cigarette Cigarette Packs Per Day: 0.5 Cigarettes Per Day: 10.0 Years Smoked: 30 Smoked in Last 30 Days: Yes Patient Interested in Nicotine Replacement: Yes Patient Given Instructions on How to Stop Smoking: Yes Date Education Initiated: 06/27/22 Second Hand Smoke Exposure: Yes Use of substances other than those prescribed or required for medical reasons: No Substance Use Type: Marijuana Currently Displaying Signs/Symptoms of Drug Intoxication Withdrawal: No Have you been hit, kicked, punched, or otherwise hurt by someone within the past year? If so, by whom?: No Do you feel safe in your current relationship?: Yes Is there a partner from a previous relationship who is making you feel unsafe now?: No Are you made to feel afraid or neglected: No Advance Directives: Yes Advance Directives on File: Yes Advance Directives Date on File: 05/30/20 Do you have thoughts of harming others: None Do you have a plan to hurt others: No Plan Recently lost weight without trying: No Nutrition Risks: No Nutritional Risk Poor oral hygiene: No service: No Current occupational status: employed Meds Allergies Allergy/AdvReac Type Severity Reaction Status Date / Time gabapentin AdvReac Intermediate nausea, Verified 06/09/22 09:51 dizziness Active Medications: Current Medications Acetaminophen (Acetaminophen 325 Mg Tablet) 650 mg PO Q6H PRN PRN Reason: Pain, Mild (Pain Scale 1-3) Last Admin: 06/28/22 08:55 Dose: 650 mg Albuterol Sulfate (Albuterol Sulfate 90 Mcg 8 Gm Inhaler) 2 puff INHALE RQ4H PRN PRN Reason: shortness of breath or wheezing Dextrose (Dextrose 50 % 25 Gm/50 Ml Syringe) 25 gm IVPUSH Q15M PRN; Protocol PRN Reason: per Hypoglycemia Standing Ord. Docusate Sodium (Docusate Sodium 100 Mg Capsule) 100 mg PO BID [facility] Last Admin: 06/28/22 08:55 Dose: 100 mg Glucose (Glucose Gel 15 Gm Gel..Gram.) 15 gm PO Q15M PRN; Protocol PRN Reason: per Hypoglycemia Standing Ord. Vancomycin HCl 1,250 mg/ (Sodium Chloride) 250 mls @ 166.667 mls/hr IV Q24H [facility] Piperacillin Sod/Tazobactam (Sod 3.375 gm/ Sodium Chloride) 50 mls @ 100 mls/hr IV Q6H [facility] Last Infusion: 06/28/22 13:48 Dose: Infused Insulin Human Lispro (Insulin Lispro 100 Unit/Ml 3 Ml Vial) 0 unit SUBCUT QIDACHS [facility]; Protocol Last Admin: 06/28/22 11:53 Dose: 2 unit Melatonin (Melatonin 3 Mg Tablet) 6 mg PO BEDTIME PRN PRN Reason: Insomnia Morphine Sulfate (Morphine Sulfate 4 Mg/Ml Cartridge) 4 mg IVPUSH Q4H PRN; Protocol PRN Reason: Pain, Severe (Pain Scale 7-10) Last Admin: 06/28/22 13:47 Dose: 4 mg Nicotine (Nicotine 14 Mg Patch.Td24) 14 mg TRANSDERMA DAILY [facility] Last Admin: 06/28/22 13:48 Dose: 14 mg Ondansetron HCl (Ondansetron Hcl 4 Mg/2 Ml Vial) 4 mg IVPUSH Q8H PRN PRN Reason: Nausea and Vomiting Pharmacy Consult (Consult Rx Vancomycin Dosing) 1 each MISCELLANE DAILY PRN PRN Reason: Consult order Pharmacy Consult (Consult Rx Perform Med Rec) 1 each MISCELLANE ONCE PRN PRN Reason: Consult order Pharmacy Consult (Consult Rx Vancomycin Dosing) 1 each MISCELLANE DAILY PRN PRN Reason: Consult order Home Medications Medication Instructions Recorded Confirmed Last Taken Type insulin syringe-needle U-100 0.3 #10 ea 06/19/20 03/02/22 Unknown History mL 31 gauge x 5/16 lancets 28 gauge #100 ea 06/19/20 03/02/22 Unknown History ibuprofen 200 mg tablet 200 mg PO Q6H PRN Pain 05/28/22 06/27/22 Unknown History Physical Exam Vital Signs: Vital Signs: Last Vital Signs Temp 99.5 F 06/28/22 07:54 Pulse 106 H 06/28/22 07:54 Resp 17 06/28/22 07:54 BP 143/93 H 06/28/22 07:54 Pulse Ox 93 06/28/22 07:54 O2 Del Method 06/28/22 07:54 BMI result Body Mass Index 34.9 Const: General: cooperative HEENT: Head: Yes normal to inspection Face and sinus: Yes normal facial exam Mouth: Normal oral and palatal mucosa present Teeth and gingiva: dentition normal Eyes: General: appearance normal, both eyes and all related structures Pupils: Equal, round and reactive pupils present Resp: Effort & Inspection: normal respiratory effort Cardio: Rate: regular rate Rhythm: regular rhythm GI: Palpation (GI): Soft to palpation and nontender : General: Yes no CVA tenderness Back/Spine/Pelvis: Back: no CVA tenderness Skin: General skin exam: no rashes or lesions noted Neuro: General: moves all extremities Cranial nerves: Yes Equal, round and reactive pupils present Extrem: Other: right foot wrapped,some cellulitis above dressing neuropathy callus clean left foot Psych: Appearance: grossly normal Results Labs CBC & Chem 7: 06/28/22 05:29 06/28/22 05:29 Labs: Short CBC 06/27/22 06/28/22 Range/Units 15:58 05:29 WBC 25.5 H 24.4 H (4.8-10.8) X10*3/uL Hgb 10.1 L 8.1 L (14.0-18.0) g/dl Hct 31.8 L 26.1 L (42.0-52.0) % Plt Count TNP 430 H D BMP 06/27/22 06/28/22 15:58 05:29 Sodium 134 L 137 Potassium 4.8 4.8 Chloride 97 103 Carbon Dioxide 25 24 BUN 41 H 36 H Creatinine 1.98 H 1.54 H Calcium 7.9 L 7.4 L D Liver Function 06/27/22 Range/Units 15:58 Total Bilirubin 0.5 (0.0-1.0) mg/dL AST 17 (5-37) U/L ALT 21 (0-40) U/L Alkaline Phosphatase 387 H (39-117) U/L Albumin 2.5 L (3.5-5.0) g/dL Urine 06/27/22 Range/Units 20:25 Urine Color Dark Yellow Urine Appearance Cloudy Urine pH 5.5 (5.0-9.0) Ur Specific [place] 1.020 (1.005-1.025) Urine Protein 300 (3+) H (Neg-Trace) mg/dL Urine Glucose (UA) 500 H (Negative) mg/dL Microbiology Microbiology Results: Microbiology 06/27/22 15:57 Blood - Venous Blood Culture - Preliminary Prelim: GPC Gram Stain only 06/27/22 20:25 Urine clean catch - Urine klein top Urine Culture - Preliminary Culture in progress. Assessment and Plan (1) Acute osteomyelitis of right foot: Status: Acute He has OM foot, no organisms listed He has gram positive cocci in blood (2) Diabetic foot ulcer: Status: Acute (3) Gram positive sepsis: Status: Acute Plan Continue Vancomycin and piperacillin/tazobactam Would await blood culture result. He will require six weeks IV antibiotics,type to be determined base on blood culture Check ESR Time Spent With Patient Time: Total time managing care of this patient today ____ minutes.
[2022-06-28 15:49] LABS: Glucose, Whole Blood 192 mg/dL (60-115)
[2022-06-28] MEDS: vancomycin HCL 1,250 MG in 0.9 % Sodium Chloride 250 ML 166.67 MG IV (17:34)
[2022-06-28 20:15] VITALS: BP 192/91; PULSE 96; RESP 20; TEMP 36.5; O2SAT 100
[2022-06-28 20:18] VITALS: BP 136/78
[2022-06-28 20:23] LABS: Glucose, Whole Blood 179 mg/dL (60-115)
[2022-06-29] VITALS (14 sets, daily range): BP systolic 143–183; BP diastolic 81–98; PULSE 84–99; RESP 16–32; TEMP 36.7–38.3; O2SAT 92–100
[2022-06-29] MEDS: Piperacillin Sodium/Tazobactam 3.375 GM in 0.9 % Sodium Chloride 50 ML IV ×4 (04:14→21:40)
[2022-06-29] MEDS: oxyCODONE HCl Immed Release 5 MG TABLET PO ×3 (04:14→21:40)
[2022-06-29 06:21] LABS: Hematocrit 27.3 % (42.0-52.0); Hemoglobin 8.5 g/dl (14.0-18.0); Mean Corpuscular HGB Conc 31.1 g/dl (31.0-36.0); Mean Corpuscular Hemoglobin 25.7 pg (27.0-33.0); Mean Corpuscular Volume 82.5 fL (80.0-98.0); Mean Platelet Volume 12.1 fL (9.4-12.4); Platelet Count 412 X10*3/uL (160-400); Red Blood Count 3.31 X10*6/uL (4.60-5.80); Red Cell Distribution Width 13.6 % (11.0-16.0); White Blood Count 22.7 X10*3/uL (4.8-10.8)
[2022-06-29 07:01] LABS: Creatinine Clr Calc Pharmacy 68.6; Estimated Glomerular Filt Rate 50
[2022-06-29 07:35] LABS: Glucose, Whole Blood 159 mg/dL (60-115)
[2022-06-29] MEDS: Docusate Sodium 100 MG CAPSULE PO ×2 (07:40→21:40)
[2022-06-29] MEDS: Nicotine 14 MG PATCH.TD24 TRANSDERMA (07:40)
[2022-06-29] MEDS: Albuterol Sulfate 90 MCG 8 GM INHALER 2 PUFF INHALE (08:15)
--- NOTE | 2022-06-29 09:00 | PC.NURSE ---
Patient off floor at this time for procedure in OR.
--- NOTE | 2022-06-29 09:01 | HO.PM.IMPN ---
Subjective Subjective Date of Service: 06/29/22 Interval History: Seen in f/u for diabetic foot ulcer, osteomylitis Pain is controlled Review of Systems no fever, pain in the foot Physical Exam Vital Signs: Vital Signs: Last Vital Signs Temp 981 F H 06/29/22 07:12 Pulse 85 06/29/22 08:19 Resp 18 06/29/22 08:19 BP 183/98 H 06/29/22 07:12 Pulse Ox 98 06/29/22 07:12 O2 Del Method 06/29/22 07:12 O2 Flow Rate 2 06/28/22 20:15 BMI result Body Mass Index 34.9 Const: Other: General: AO X 3, no acute distress Resp: CTA bilateral CVS: S1,S2,RRR GI: +BS, NT, no distention Skin: Neuro: motor grossly intact Psych: appropriate affect Objective Data Active Medications Acetaminophen (Acetaminophen 325 Mg Tablet) 650 mg PO Q6H PRN PRN Reason: Pain, Mild (Pain Scale 1-3) Last Admin: 06/28/22 08:55 Dose: 650 mg Documented By: ADDISON Albuterol Sulfate (Albuterol Sulfate 90 Mcg 8 Gm Inhaler) 2 puff INHALE RQ4H PRN PRN Reason: shortness of breath or wheezing Last Admin: 06/29/22 08:15 Dose: 2 puff Documented By: GEORGIANA Dextrose (Dextrose 50 % 25 Gm/50 Ml Syringe) 25 gm IVPUSH Q15M PRN; Protocol PRN Reason: per Hypoglycemia Standing Ord. Docusate Sodium (Docusate Sodium 100 Mg Capsule) 100 mg PO BID [facility] Last Admin: 06/29/22 07:40 Dose: 100 mg Documented By: ADDISON Glucose (Glucose Gel 15 Gm Gel..Gram.) 15 gm PO Q15M PRN; Protocol PRN Reason: per Hypoglycemia Standing Ord. Vancomycin HCl 1,250 mg/ (Sodium Chloride) 250 mls @ 166.667 mls/hr IV Q24H [facility] Last Infusion: 06/28/22 19:59 Dose: 0 mls/hr Documented By: MORRINL Piperacillin Sod/Tazobactam (Sod 3.375 gm/ Sodium Chloride) 50 mls @ 100 mls/hr IV Q6H [facility] Last Infusion: 06/29/22 04:49 Dose: 0 mls/hr Documented By: RITA Insulin Human Lispro (Insulin Lispro 100 Unit/Ml 3 Ml Vial) 0 unit SUBCUT QIDACHS [facility]; Protocol Last Admin: 06/29/22 07:37 Dose: Not Given Documented By: ADDISON Non-Admin Reason: NPO Melatonin (Melatonin 3 Mg Tablet) 6 mg PO BEDTIME PRN PRN Reason: Insomnia Nicotine (Nicotine 14 Mg Patch.Td24) 14 mg TRANSDERMA DAILY [facility] Last Admin: 06/29/22 07:40 Dose: 14 mg Documented By: ADDISON Ondansetron HCl (Ondansetron Hcl 4 Mg/2 Ml Vial) 4 mg IVPUSH Q8H PRN PRN Reason: Nausea and Vomiting Oxycodone HCl (Oxycodone Hcl Immed Release 5 Mg Tablet) 5 mg PO Q6H PRN PRN Reason: Pain, Severe (Pain Scale 7-10) Last Admin: 06/29/22 04:14 Dose: 5 mg Documented By: MELITA Pharmacy Consult (Consult Rx Vancomycin Dosing) 1 each MISCELLANE DAILY PRN PRN Reason: Consult order Pharmacy Consult (Consult Rx Perform Med Rec) 1 each MISCELLANE ONCE PRN PRN Reason: Consult order Pharmacy Consult (Consult Rx Vancomycin Dosing) 1 each MISCELLANE DAILY PRN PRN Reason: Consult order Labs CBC & Chem 7: 06/29/22 05:37 06/29/22 05:37 Labs: Laboratory Results - last 24 hr 06/28/22 06/28/22 06/28/22 11:00 15:38 20:18 MCV MCH MCHC RDW Plt Count MPV Absolute Nucleated RBC Nucleated RBC % (auto) Estim Creat Clear Calc Estimated GFR POC Glucose 190 H 192 H 179 H 06/29/22 06/29/22 06/29/22 05:37 05:37 07:20 MCV 82.5 MCH 25.7 L MCHC 31.1 RDW 13.6 Plt Count 412 H MPV 12.1 Absolute Nucleated RBC 0.000 Nucleated RBC % (auto) 0.0 Estim Creat Clear Calc 68.6 Estimated GFR 50 POC Glucose 159 H Microbiology Microbiology Results: Microbiology 06/27/22 15:57 Blood Culture - Preliminary Blood - Venous Prelim: GPC Gram Stain only 06/27/22 19:07 Blood Culture - Preliminary Blood - Venous No growth after 24 hours. 06/27/22 20:25 Urine Culture - Preliminary Urine clean catch - Urine klein top Culture in progress. Assessment and Plan (1) Diabetic foot ulcer: Status: Acute (2) Acute osteomyelitis of right foot: Status: Acute Plan 51-year-old male history of diabetes, hypertension, hyperlipidemia, chronic foot ulcers who presents to the emergency department with increasing infected right diabetic foot ulcer, previously no osteo Right diabetic foot ulcer--with finding as reported on xray above, debrided, marked leukocytosis but doesn't meet SIRS -Broad spec Abx (Vanco and Zosyn) -Surgery to perform debridment in OR today 06/29 -ID consult -MRI show osteo and will likely need skilled nursing Abx DM per pharmacy has not been filling medication follow POCs SSI, ADA diet discussed skilled nursing meds and compliance CKD3 with SHI tobacco dependence smoking cessation advised NRT DVT ppx - lovenox patient will likely require 2 midnight stay in the hospital for management of diabetic foot wound and possible osteomyelitis requiring IV antibiotics, MRI and surgical evaluation Time Spent With Patient Time: Total time managing care of this patient today ____ minutes. Quality Stroke Does the patient have a stroke diagnosis?: No VTE Prior VTE?: No VTE Risk Level:: Medical - moderate - high VTE Device Contraindication: Treatment Not Indicated VTE Drug Contraindication: N/A - Med Ordered
--- NOTE | 2022-06-29 09:04 | P.CONAN_ITS ---
[facility] Active Problems Active Problems: All Active Problems (Updated 06/28/22 @ 15:38 by Sol Kirkland MD) Gram positive sepsis (Acute) Acute osteomyelitis of right foot (Acute) Diabetic foot ulcer (Acute) Acute hyperglycemia (Acute) Acute kidney injury (Acute) Foot abscess, right (Acute) Callus under metatarsal head (Acute) Diabetic foot (Acute) Hyperlipidemia LDL goal <100 (Acute) Benign essential hypertension (Acute) Obesity (BMI 30-39.9) (Acute) Dry gangrene (Acute) Osteomyelitis of left foot (Acute) Status post incision and drainage (Acute) Past Medical History Medical History (Updated 06/28/22 @ 15:38 by Sol Kirkland MD) Asthma Benign essential hypertension Callus under metatarsal head Chronic painful diabetic neuropathy Diabetes mellitus Diabetic foot Diabetic ulcer of foot associated with diabetes mellitus due to underlying condition, with fat layer exposed Dry gangrene Foot abscess, right Gram positive sepsis Hyperlipidemia LDL goal <100 Lumbar degenerative disc disease Neuropathy Obesity Obesity (BMI 30-39.9) Osteomyelitis of ankle or foot, acute Osteomyelitis of left foot Pure hypercholesterolemia Smoker Umbilical hernia Family History Family History Father Medical history unknown Mother Asthma Hypertension Diabetes Brother Chronic mental illness Diabetes Family history of problems with anesthesia: No Surgical History Surgical History H/O hernia repair Status post amputation of left great toe Status post debridement Status post incision and drainage Status post incision and drainage History of Problems with Anesthesia: No Social History Social History Household Members: Significant Other Household Members Other:: girlfriend Housing: Apartment Do you presently have visiting nurse or other home services: No Alcohol intake: former Patient Tobacco Use Status: Current everyday Tobacco user Tobacco use type: Cigarette Cigarette Packs Per Day: 0.5 Cigarettes Per Day: 10 Years Smoked: 30 Smoked in Last 30 Days: Yes Patient Interested in Nicotine Replacement: Yes Patient Given Instructions on How to Stop Smoking: Yes Date Education Initiated: 06/27/22 Second Hand Smoke Exposure: Yes Use of substances other than those prescribed or required for medical reasons: No Substance Use Type: Marijuana Currently Displaying Signs/Symptoms of Drug Intoxication Withdrawal: No Have you been hit, kicked, punched, or otherwise hurt by someone within the past year? If so, by whom?: No Do you feel safe in your current relationship?: Yes Is there a partner from a previous relationship who is making you feel unsafe now?: No Are you made to feel afraid or neglected: No Are you DNR?: No Advance Directives: Yes Advance Directives on File: Yes Advance Directives Date on File: 05/30/20 Do you have thoughts of harming others: None Do you have a plan to hurt others: No Plan Recently lost weight without trying: No Nutrition Risks: No Nutritional Risk Poor oral hygiene: No service: No Current occupational status: employed Meds Allergies Allergy/AdvReac Type Severity Reaction Status Date / Time gabapentin AdvReac Intermediate nausea, Verified 06/09/22 09:51 dizziness Active Medications: Current Medications Acetaminophen (Acetaminophen 325 Mg Tablet) 650 mg PO Q6H PRN PRN Reason: Pain, Mild (Pain Scale 1-3) Last Admin: 06/28/22 08:55 Dose: 650 mg Albuterol Sulfate (Albuterol Sulfate 90 Mcg 8 Gm Inhaler) 2 puff INHALE RQ4H PRN PRN Reason: shortness of breath or wheezing Last Admin: 06/29/22 08:15 Dose: 2 puff Dextrose (Dextrose 50 % 25 Gm/50 Ml Syringe) 25 gm IVPUSH Q15M PRN; Protocol PRN Reason: per Hypoglycemia Standing Ord. Docusate Sodium (Docusate Sodium 100 Mg Capsule) 100 mg PO BID [facility] Last Admin: 06/29/22 07:40 Dose: 100 mg Glucose (Glucose Gel 15 Gm Gel..Gram.) 15 gm PO Q15M PRN; Protocol PRN Reason: per Hypoglycemia Standing Ord. Vancomycin HCl 1,250 mg/ (Sodium Chloride) 250 mls @ 166.667 mls/hr IV Q24H [facility] Last Infusion: 06/28/22 19:59 Dose: Infused Piperacillin Sod/Tazobactam (Sod 3.375 gm/ Sodium Chloride) 50 mls @ 100 mls/hr IV Q6H [facility] Last Infusion: 06/29/22 04:49 Dose: Infused Insulin Human Lispro (Insulin Lispro 100 Unit/Ml 3 Ml Vial) 0 unit SUBCUT QIDACHS [facility]; Protocol Last Admin: 06/29/22 07:37 Dose: Not Given Melatonin (Melatonin 3 Mg Tablet) 6 mg PO BEDTIME PRN PRN Reason: Insomnia Nicotine (Nicotine 14 Mg Patch.Td24) 14 mg TRANSDERMA DAILY SUPRIYA Last Admin: 06/29/22 07:40 Dose: 14 mg Ondansetron HCl (Ondansetron Hcl 4 Mg/2 Ml Vial) 4 mg IVPUSH Q8H PRN PRN Reason: Nausea and Vomiting Oxycodone HCl (Oxycodone Hcl Immed Release 5 Mg Tablet) 5 mg PO Q6H PRN PRN Reason: Pain, Severe (Pain Scale 7-10) Last Admin: 06/29/22 04:14 Dose: 5 mg Pharmacy Consult (Consult Rx Vancomycin Dosing) 1 each MISCELLANE DAILY PRN PRN Reason: Consult order Pharmacy Consult (Consult Rx Perform Med Rec) 1 each MISCELLANE ONCE PRN PRN Reason: Consult order Pharmacy Consult (Consult Rx Vancomycin Dosing) 1 each MISCELLANE DAILY PRN PRN Reason: Consult order Home Medications Medication Instructions Recorded Confirmed Last Taken Type insulin syringe-needle U-100 0.3 #10 ea 06/19/20 03/02/22 Unknown History mL 31 gauge x 5/16 lancets 28 gauge #100 ea 06/19/20 03/02/22 Unknown History ibuprofen 200 mg tablet 200 mg PO Q6H PRN Pain 05/28/22 06/27/22 Unknown History Exam Exam Date and Time: June 29, 2022 0904 Height,Weight and Vital Signs: Height 5 ft 8 in Weight 104.326 kg Last Vital Signs Temp 981 F H 06/29/22 07:12 Pulse 85 06/29/22 08:19 Resp 18 06/29/22 08:19 BP 183/98 H 06/29/22 07:12 Pulse Ox 98 06/29/22 07:12 O2 Del Method 06/29/22 07:12 O2 Flow Rate 2 06/28/22 20:15 Pertinent Lab Results Pertinent Lab Results: Laboratory Tests 06/27/22 06/27/22 06/27/22 15:57 15:57 15:58 WBC 25.5 H RBC 3.91 L Hgb 10.1 L Hct 31.8 L MCV 81.3 MCH 25.8 L MCHC 31.8 RDW 13.2 Plt Count TNP MPV 11.3 Immature Gran % (Auto) 2.2 H Neut % (Auto) 91.4 H Lymph % (Auto) 1.9 L [place] % (Auto) 3.9 Eos % (Auto) 0.2 Baso % (Auto) 0.4 Lymph # (Auto) 0.5 L [place] # (Auto) 1.0 Eos # (Auto) 0.0 Baso # (Auto) 0.1 Abs Immat Gran (auto) 0.57 H Absolute Neuts (auto) 23.3 H Absolute Nucleated RBC 0.000 Nucleated RBC % (auto) 0.0 Smear Tech's Comments VERIFIED Sodium Potassium Chloride Carbon Dioxide Anion Gap BUN Creatinine Estim Creat Clear Calc Estimated GFR POC Glucose Random Glucose Lactic Acid Lactic Acid F/U @ 2Hr Calcium Magnesium Total Bilirubin AST ALT Alkaline Phosphatase Troponin I High Sens Total Protein Albumin Urine Color Urine Appearance Urine pH Ur Specific [place] Urine Protein Urine Glucose (UA) Urine Ketones Urine Blood Urine Nitrite Ur Leukocyte Esterase Urine RBC Urine WBC Ur Squamous Epith Cells Urine Bacteria Hyaline Casts Granular Casts COVID-19 (KURT) Negative COVID-19 Clin Com See Note Influenza Type A (GLENN) Negative Influenza Type B (GLENN) Negative Influenza A & B Note See Note 06/27/22 06/27/22 06/27/22 15:58 15:58 15:58 WBC RBC Hgb Hct MCV MCH MCHC RDW Plt Count MPV Immature Gran % (Auto) Neut % (Auto) Lymph % (Auto) [place] % (Auto) Eos % (Auto) Baso % (Auto) Lymph # (Auto) [place] # (Auto) Eos # (Auto) Baso # (Auto) Abs Immat Gran (auto) Absolute Neuts (auto) Absolute Nucleated RBC Nucleated RBC % (auto) Smear Tech's Comments Sodium 134 L Potassium 4.8 Chloride 97 Carbon Dioxide 25 Anion Gap 17 BUN 41 H Creatinine 1.98 H Estim Creat Clear Calc 51.6 Estimated GFR 36 POC Glucose Random Glucose 308 H Lactic Acid 2.2 H* Lactic Acid F/U @ 2Hr Calcium 7.9 L Magnesium 2.2 Total Bilirubin 0.5 AST 17 ALT 21 Alkaline Phosphatase 387 H Troponin I High Sens 14.0 Total Protein 6.0 L Albumin 2.5 L Urine Color Urine Appearance Urine pH Ur Specific [place] Urine Protein Urine Glucose (UA) Urine Ketones Urine Blood Urine Nitrite Ur Leukocyte Esterase Urine RBC Urine WBC Ur Squamous Epith Cells Urine Bacteria Hyaline Casts Granular Casts COVID-19 (KURT) COVID-19 Clin Com Influenza Type A (GLENN) Influenza Type B (GLENN) Influenza A & B Note 06/27/22 06/27/22 06/27/22 19:07 20:25 21:44 WBC RBC Hgb Hct MCV MCH MCHC RDW Plt Count MPV Immature Gran % (Auto) Neut % (Auto) Lymph % (Auto) [place] % (Auto) Eos % (Auto) Baso % (Auto) Lymph # (Auto) [place] # (Auto) Eos # (Auto) Baso # (Auto) Abs Immat Gran (auto) Absolute Neuts (auto) Absolute Nucleated RBC Nucleated RBC % (auto) Smear Tech's Comments Sodium Potassium Chloride Carbon Dioxide Anion Gap BUN Creatinine Estim Creat Clear Calc Estimated GFR POC Glucose 355 H* Random Glucose Lactic Acid Lactic Acid F/U @ 2Hr 1.3 Calcium Magnesium Total Bilirubin AST ALT Alkaline Phosphatase Troponin I High Sens Total Protein Albumin Urine Color Dark Yellow Urine Appearance Cloudy Urine pH 5.5 Ur Specific [place] 1.020 Urine Protein 300 (3+) H Urine Glucose (UA) 500 H Urine Ketones Negative Urine Blood Moderate (2+) H Urine Nitrite Positive H Ur Leukocyte Esterase Small (1+) H Urine RBC 3-5 H Urine WBC 21-50 Ur Squamous Epith Cells 3-5 Urine Bacteria 2+ Hyaline Casts 0-2 Granular Casts Present COVID-19 (KURT) COVID-19 Clin Com Influenza Type A (GLENN) Influenza Type B (GLENN) Influenza A & B Note 06/27/22 06/28/22 06/28/22 23:18 05:29 05:29 WBC 24.4 H RBC 3.16 L Hgb 8.1 L Hct 26.1 L MCV 82.6 MCH 25.6 L MCHC 31.0 RDW 13.2 Plt Count 430 H D MPV 11.4 Immature Gran % (Auto) 1.7 H Neut % (Auto) 85.2 H Lymph % (Auto) 4.0 L [place] % (Auto) 8.2 Eos % (Auto) 0.4 Baso % (Auto) 0.5 Lymph # (Auto) 1.0 L [place] # (Auto) 2.0 H Eos # (Auto) 0.1 Baso # (Auto) 0.1 Abs Immat Gran (auto) 0.41 H Absolute Neuts (auto) 20.8 H Absolute Nucleated RBC 0.000 Nucleated RBC % (auto) 0.0 Smear Tech's Comments VERIFIED Sodium 137 Potassium 4.8 Chloride 103 Carbon Dioxide 24 Anion Gap 15 BUN 36 H Creatinine 1.54 H Estim Creat Clear Calc 66.4 Estimated GFR 48 POC Glucose 220 H Random Glucose 192 H Lactic Acid Lactic Acid F/U @ 2Hr Calcium 7.4 L D Magnesium Total Bilirubin AST ALT Alkaline Phosphatase Troponin I High Sens Total Protein Albumin Urine Color Urine Appearance Urine pH Ur Specific [place] Urine Protein Urine Glucose (UA) Urine Ketones Urine Blood Urine Nitrite Ur Leukocyte Esterase Urine RBC Urine WBC Ur Squamous Epith Cells Urine Bacteria Hyaline Casts Granular Casts COVID-19 (KURT) COVID-19 Clin Com Influenza Type A (GLENN) Influenza Type B (GLENN) Influenza A & B Note 06/28/22 06/28/22 06/28/22 08:28 11:00 15:38 WBC RBC Hgb Hct MCV MCH MCHC RDW Plt Count MPV Immature Gran % (Auto) Neut % (Auto) Lymph % (Auto) [place] % (Auto) Eos % (Auto) Baso % (Auto) Lymph # (Auto) [place] # (Auto) Eos # (Auto) Baso # (Auto) Abs Immat Gran (auto) Absolute Neuts (auto) Absolute Nucleated RBC Nucleated RBC % (auto) Smear Tech's Comments Sodium Potassium Chloride Carbon Dioxide Anion Gap BUN Creatinine Estim Creat Clear Calc Estimated GFR POC Glucose 153 H 190 H 192 H Random Glucose Lactic Acid Lactic Acid F/U @ 2Hr Calcium Magnesium Total Bilirubin AST ALT Alkaline Phosphatase Troponin I High Sens Total Protein Albumin Urine Color Urine Appearance Urine pH Ur Specific [place] Urine Protein Urine Glucose (UA) Urine Ketones Urine Blood Urine Nitrite Ur Leukocyte Esterase Urine RBC Urine WBC Ur Squamous Epith Cells Urine Bacteria Hyaline Casts Granular Casts COVID-19 (KURT) COVID-19 Clin Com Influenza Type A (GLENN) Influenza Type B (GLENN) Influenza A & B Note 06/28/22 06/29/22 06/29/22 20:18 05:37 05:37 WBC 22.7 H RBC 3.31 L Hgb 8.5 L Hct 27.3 L MCV 82.5 MCH 25.7 L MCHC 31.1 RDW 13.6 Plt Count 412 H MPV 12.1 Immature Gran % (Auto) Neut % (Auto) Lymph % (Auto) [place] % (Auto) Eos % (Auto) Baso % (Auto) Lymph # (Auto) [place] # (Auto) Eos # (Auto) Baso # (Auto) Abs Immat Gran (auto) Absolute Neuts (auto) Absolute Nucleated RBC 0.000 Nucleated RBC % (auto) 0.0 Smear Tech's Comments Sodium Potassium Chloride Carbon Dioxide Anion Gap BUN Creatinine 1.49 H Estim Creat Clear Calc 68.6 Estimated GFR 50 POC Glucose 179 H Random Glucose Lactic Acid Lactic Acid F/U @ 2Hr Calcium Magnesium Total Bilirubin AST ALT Alkaline Phosphatase Troponin I High Sens Total Protein Albumin Urine Color Urine Appearance Urine pH Ur Specific [place] Urine Protein Urine Glucose (UA) Urine Ketones Urine Blood Urine Nitrite Ur Leukocyte Esterase Urine RBC Urine WBC Ur Squamous Epith Cells Urine Bacteria Hyaline Casts Granular Casts COVID-19 (KURT) COVID-19 [facility]ho Com Influenza Type A (GLENN) Influenza Type B (GLENN) Influenza A & B Note 06/29/22 07:20 WBC RBC Hgb Hct MCV MCH MCHC RDW Plt Count MPV Immature Gran % (Auto) Neut % (Auto) Lymph % (Auto) [place] % (Auto) Eos % (Auto) Baso % (Auto) Lymph # (Auto) [place] # (Auto) Eos # (Auto) Baso # (Auto) Abs Immat Gran (auto) Absolute Neuts (auto) Absolute Nucleated RBC Nucleated RBC % (auto) Smear Tech's Comments Sodium Potassium Chloride Carbon Dioxide Anion Gap BUN Creatinine Estim Creat Clear Calc Estimated GFR POC Glucose 159 H Random Glucose Lactic Acid Lactic Acid F/U @ 2Hr Calcium Magnesium Total Bilirubin AST ALT Alkaline Phosphatase Troponin I High Sens Total Protein Albumin Urine Color Urine Appearance Urine pH Ur Specific [place] Urine Protein Urine Glucose (UA) Urine Ketones Urine Blood Urine Nitrite Ur Leukocyte Esterase Urine RBC Urine WBC Ur Squamous Epith Cells Urine Bacteria Hyaline Casts Granular Casts COVID-19 (KUTR) COVID-19 Clin Com Influenza Type A (GLENN) Influenza Type B (GLENN) Influenza A & B Note Airway Mallampati Class: II (Edetulous upper, missing multiple teeth on bottom, has 5 on the bottom denies loose) TM Dist: >3cm Neck ROM: Poor Heart: rrr Lungs: cta Assessment and Plan Assessment Anesthesia Assessment: Anesthesia Plan Discussed and Chart Reviewed Final Anesthetic Review Family History of Problems with Anesthesia: No History of Problems with Anesthesia: No NPO: Yes ASA Class: III Final Preanesthetic Review: No Changes in Pt Med Stat, Meds/Allgs Chart Reviewed and Consent Obtained/Reviewed Patient Risk: Intermediate Procedure Risk: Intermediate Anesthetic Plan Anesthetic Plan: MAC: and Regional Block (Ankle block) Disposition: Standard PACU
[2022-06-29] MEDS: Albuterol/Iprat 2.5/0.5MG 3 ML AMPUL.NEB INHALE (09:29)
[2022-06-29] MEDS: Lactated Ringers 1,000 ML 50 ML IVCONT (09:33)
--- NOTE | 2022-06-29 10:45 | W.PM.OPN ---
Operative Note Operative Note Date of Service: 06/29/22 Narrative: Preop diagnosis: Diabetic foot, right with necrotic tissue an abscess Postop diagnosis: The same Procedure: Sharp excisional debridement, foot, with open wound now measuring about 15 x 8 cm after debridement, skin and full-thickness of the subcutaneous layer excised Surgeon: Guido Keane MD The patient is a 51-year-old male longstanding diabetic, very poorly compliant with a thick foot on the right. There was note of an abscess along with nonviable tissue and had open this up and debrided this at bedside as he did not have any good sensation I have changes dressings and have noticed some areas at the margins with distant nonviable tissue, full-thickness of the skin and subcutaneous fat. I told him it would be best to do further excisional debridement in the OR under anesthesia. I explained the risks including but not limited to bleeding, infections, open wound, need for amputation down the line, as well as the benefits and alternatives. He had given consent. He was brought to the operating room. He was placed supine under monitored anesthesia care. An ankle block was done by the anesthesiologist. The right foot was prepped and draped in the usual sterile fashion all the way to the ankle. There was note of an open wound with some patchy areas of nonviable tissue of skin and subcutaneous layer. I did aggressive wide excisional debridement of this area to remove all the nonviable looking tissue. This involved the full-thickness of the skin and subcutaneous fat. Tendons were already expose. The muscles were seen but this were viable and there was no necrotizing fascitis I opened up an area about 15 x 8 cm. I debrided all surfaces. There was note of viable tissue afterwards with good bleeding from the remaining tissue especially the skin subcutaneous fat. I used the power flight data technician to the area. I then applied wet to dry dressings and wrapped the foot with Kerlix rolls. The procedure was completed. He tolerated procedure well. There were no immediate complications. Estimated blood loss was about 50 cc The patient was then transferred to the recovery room with stable vital signs.
[2022-06-29] MEDS: HYDROmorphone HCl 1 MG/ML SYRINGE IVPUSH (11:01)
--- NOTE | 2022-06-29 11:43 | PC.NURSE ---
Patient returned to floor at this time via bed and LIMITED RADIOLOGY TECHNICIAN.
[2022-06-29 16:18] LABS: Glucose, Whole Blood 202 mg/dL (60-115)
[2022-06-29 16:31] LABS: Vancomycin Random 6.3 mcg/mL (15-20)
--- NOTE | 2022-06-29 16:42 | HE.PHANOTE ---
Vancomycin Dosing Addendum Vancomycin level 6.3. Increasing dose to 1750 mg q24h for predicted auc of 501. cr trending down. next trough due 06/30/22 @1500.
[2022-06-29] MEDS: Insulin Lispro 100 UNIT/ML 3 ML VIAL SUBCUT ×2 (17:35→21:40)
[2022-06-29] MEDS: vancomycin HCL 1,000 MG, vancomycin HCL 750 MG in 0.9 % Sodium Chloride 500 ML 267.5 MG IV (18:04)
[2022-06-29 20:50] LABS: Glucose, Whole Blood 242 mg/dL (60-115)
[2022-06-30 02:56] VITALS: BP 142/80; PULSE 96; RESP 18; TEMP 36.9; O2SAT 97
[2022-06-30] MEDS: Acetaminophen 325 MG TABLET 650 MG PO ×3 (03:02→16:15)
[2022-06-30] MEDS: oxyCODONE HCl Immed Release 5 MG TABLET PO ×4 (03:35→22:29)
[2022-06-30] MEDS: Piperacillin Sodium/Tazobactam 3.375 GM in 0.9 % Sodium Chloride 50 ML IV ×4 (06:04→22:28)
[2022-06-30] MEDS: Lactated Ringers 1,000 ML 50 ML IVCONT (06:07)
[2022-06-30 07:19] VITALS: BP 168/87; PULSE 84; RESP 18; TEMP 36.8; O2SAT 99
[2022-06-30 07:48] LABS: Glucose, Whole Blood 260 mg/dL (60-115)
[2022-06-30 07:48] LABS: Creatinine Clr Calc Pharmacy 67.7; Estimated Glomerular Filt Rate 49
--- NOTE | 2022-06-30 08:19 | PM.PNGS ---
Subjective Subjective Date of Service: 06/30/22 Interval history: describes pain on debridement site no new complaints says he had a good night Physical Exam Vital Signs: Vital Signs: Last Vital Signs Temp 98.3 F 06/30/22 07:19 Pulse 84 06/30/22 07:19 Resp 18 06/30/22 07:19 BP 168/87 H 06/30/22 07:19 Pulse Ox 99 06/30/22 07:19 O2 Del Method 06/30/22 07:19 O2 Flow Rate 2 06/29/22 11:24 BMI result Body Mass Index 34.9 Const: General: comfortable and no acute distress Resp: Effort & Inspection: normal respiratory effort Cardio: Rate: regular rate Extrem: Other: right foot with open wound - still with persistent nonviable soft tissue on edges, some drainage; tendons exposed, firts metatarsal head exposed Objective Data Active Medications Acetaminophen (Acetaminophen 325 Mg Tablet) 650 mg PO Q6H PRN PRN Reason: Pain, Mild (Pain Scale 1-3) Last Admin: 06/30/22 03:02 Dose: 650 mg Documented By: MAEGAN Acetaminophen (Acetaminophen 325 Mg Tablet) 975 mg PO ONCE PRN PRN Reason: Pain, Mild (Pain Scale 1-3) Albuterol Sulfate (Albuterol Sulfate 90 Mcg 8 Gm Inhaler) 2 puff INHALE RQ4H PRN PRN Reason: shortness of breath or wheezing Last Admin: 06/29/22 08:15 Dose: 2 puff Documented By: GEORGIANA Dextrose (Dextrose 50 % 25 Gm/50 Ml Syringe) 25 gm IVPUSH Q15M PRN; Protocol PRN Reason: per Hypoglycemia Standing Ord. Docusate Sodium (Docusate Sodium 100 Mg Capsule) 100 mg PO BID SUPRIYA Last Admin: 06/29/22 21:40 Dose: 100 mg Documented By: MAEGAN Fentanyl (Fentanyl Citrate/Pf 100 Mcg/2 Ml Vial) 50 mcg IVPUSH Q5M PRN; Protocol PRN Reason: Pain, Severe (Pain Scale 7-10) Glucose (Glucose Gel 15 Gm Gel..Gram.) 15 gm PO Q15M PRN; Protocol PRN Reason: per Hypoglycemia Standing Ord. Hydromorphone HCl (Hydromorphone Hcl 1 Mg/Ml Syringe) 1 mg IVPUSH Q10M PRN; Protocol PRN Reason: post op pain Last Admin: 06/29/22 11:01 Dose: 1 mg Documented By: JENN Piperacillin Sod/Tazobactam (Sod 3.375 gm/ Sodium Chloride) 50 mls @ 100 mls/hr IV Q6H REPLACED BY [facility] Last Infusion: 06/30/22 06:39 Dose: 0 mls/hr Documented By: MAEGAN Lactated Ringer's (Lr) 1,000 mls @ 50 mls/hr IVCONT .Q20H REPLACED BY [facility] Last Admin: 06/30/22 06:07 Dose: 50 mls/hr Documented By: MAEGAN Vancomycin HCl 1,000 mg/Vancomycin HCl 750 mg/ Sodium Chloride 535 mls @ 267.5 mls/hr IV Q24H REPLACED BY [facility] Last Infusion: 06/29/22 20:18 Dose: 0 mls/hr Documented By: MAEGAN Insulin Human Lispro (Insulin Lispro 100 Unit/Ml 3 Ml Vial) 0 unit SUBCUT QIDACHS REPLACED BY [facility]; Protocol Last Admin: 06/29/22 21:40 Dose: 4 unit Documented By: MAEGAN Melatonin (Melatonin 3 Mg Tablet) 6 mg PO BEDTIME PRN PRN Reason: Insomnia Morphine Sulfate (Morphine Sulfate 2 Mg/Ml Cartridge) 2 mg IVPUSH Q4H PRN; Protocol PRN Reason: Pain, Severe (Pain Scale 7-10) Nicotine (Nicotine 14 Mg Patch.Td24) 14 mg TRANSDERMA DAILY REPLACED BY [facility] Last Admin: 06/29/22 07:40 Dose: 14 mg Documented By: ADDISON Ondansetron HCl (Ondansetron Hcl 4 Mg/2 Ml Vial) 4 mg IVPUSH Q8H PRN PRN Reason: Nausea and Vomiting Ondansetron HCl (Ondansetron Hcl 4 Mg/2 Ml Vial) 4 mg IVPUSH ONCE PRN PRN Reason: Nausea and Vomiting Oxycodone HCl (Oxycodone Hcl Immed Release 5 Mg Tablet) 5 mg PO Q6H PRN PRN Reason: Pain, Severe (Pain Scale 7-10) Last Admin: 06/30/22 03:35 Dose: 5 mg Documented By: MAEGAN Oxycodone HCl (Oxycodone Hcl Immed Release 5 Mg Tablet) 10 mg PO ONCE PRN PRN Reason: Pain, Severe (Pain Scale 7-10) Pharmacy Consult (Consult Rx Vancomycin Dosing) 1 each MISCELLANE DAILY PRN PRN Reason: Consult order Pharmacy Consult (Consult Rx Perform Med Rec) 1 each MISCELLANE ONCE PRN PRN Reason: Consult order Pharmacy Consult (Consult Rx Vancomycin Dosing) 1 each MISCELLANE DAILY PRN PRN Reason: Consult order Labs CBC & Chem 7: 06/29/22 05:37 06/30/22 06:01 Labs: Laboratory Results - last 24 hr 06/29/22 06/29/22 06/29/22 15:55 16:08 19:53 Estim Creat Clear Calc Estimated GFR POC Glucose 202 H 242 H Random Vancomycin 6.3 L 06/30/22 06/30/22 06:01 07:21 Estim Creat Clear Calc 67.7 Estimated GFR 49 POC Glucose 260 H Random Vancomycin Microbiology Microbiology Results: Microbiology 06/27/22 20:25 Urine Culture - Final Urine clean catch - Urine klein top Escherichia coli 06/27/22 19:07 Blood Culture - Preliminary Blood - Venous No growth after 48 hours. 06/27/22 15:57 Blood Culture - Preliminary Blood - Venous Prelim: GPC Gram Stain only Procedures Date of Service Date of Service: 06/30/22 Progress Note: A&P Assessment and plan (1) Foot abscess, right: Status: Acute Assessment and Plan: aggressively debrided but till with peristent nonviable tissue, drainage he now says he does not want to stay long in the hospital and says if wound unlikely to get better quickly, he would want BKA I told him that there is a small chance the wound may still heal but will need aggressive wound care and may take a while he says he does not want to wait that long I explained technique of BKA, right - reviewed risks incl but not limited to bleeding, infections, poor healing, wound complications, inherent risks of anesthesia incl. NM, pneumonia he wants to proceed - will put on schedule tomorrow Time Spent With Patient Time: Total time managing care of this patient today ____ minutes. Quality Stroke Does the patient have a stroke diagnosis?: No VTE Prior VTE?: No VTE Risk Level:: Medical - moderate - high VTE Device Contraindication: Treatment Not Indicated VTE Drug Contraindication: N/A - Med Ordered
[2022-06-30] MEDS: Nicotine 14 MG PATCH.TD24 TRANSDERMA (08:34)
[2022-06-30] MEDS: Docusate Sodium 100 MG CAPSULE PO ×2 (08:34→22:29)
[2022-06-30] MEDS: Insulin Lispro 100 UNIT/ML 3 ML VIAL SUBCUT ×4 (08:35→22:29)
[2022-06-30 10:01] LABS: Erythrocyte Sedimentation Rate 111 MM/HR (0-15)
[2022-06-30 11:26] LABS: Glucose, Whole Blood 198 mg/dL (60-115)
--- NOTE | 2022-06-30 11:58 | MHC.CM.PN ---
PER HOSPITALIST PT WILL REMAIN INPT FOR AMP, NO D/C PLANNED FOR TODAY, CM WILL CONT TO FOLLOW D/C NEEDS. CM RECEIVED CALL FROM [facility] WHO REPORTED THEY ARE UNABLE TO OFFER D/T PT'S HX OF NONCOMPLIANCE, CM WILL EXPAND REFERRAL IF PT STILL NEEDS IV ABX AFTER AMP.
[2022-06-30] MEDS: Heparin Sodium,Porcine 5,000 UNIT/ML VIAL 5000 UNIT SUBCUT ×2 (12:11→22:29)
--- NOTE | 2022-06-30 13:06 | HO.PM.IMPN ---
Subjective Subjective Date of Service: 06/30/22 Interval History: Seen in f/u for diabetic foot ulcer, osteomylitis wound is not improving and will need right BKA to be planned for tomorrow Review of Systems no fever, pain in the foot Review of Systems: Yes all other systems are reviewed and are negative Physical Exam Vital Signs: Vital Signs: Last Vital Signs Temp 98.3 F 06/30/22 07:19 Pulse 84 06/30/22 07:19 Resp 18 06/30/22 07:19 BP 168/87 H 06/30/22 07:19 Pulse Ox 99 06/30/22 07:19 O2 Del Method 06/30/22 07:19 O2 Flow Rate 2 06/29/22 11:24 BMI result Body Mass Index 34.9 Const: Other: General: AO X 3, no acute distress Resp: CTA bilateral CVS: S1,S2,RRR GI: +BS, NT, no distention Skin: right foot swelling, drainage Neuro: motor grossly intact Psych: appropriate affect Objective Data Active Medications Acetaminophen (Acetaminophen 325 Mg Tablet) 650 mg PO Q6H PRN PRN Reason: Pain, Mild (Pain Scale 1-3) Last Admin: 06/30/22 10:12 Dose: 650 mg Documented By: ADDISON Acetaminophen (Acetaminophen 325 Mg Tablet) 975 mg PO ONCE PRN PRN Reason: Pain, Mild (Pain Scale 1-3) Albuterol Sulfate (Albuterol Sulfate 90 Mcg 8 Gm Inhaler) 2 puff INHALE RQ4H PRN PRN Reason: shortness of breath or wheezing Last Admin: 06/29/22 08:15 Dose: 2 puff Documented By: GEORGIANA Dextrose (Dextrose 50 % 25 Gm/50 Ml Syringe) 25 gm IVPUSH Q15M PRN; Protocol PRN Reason: per Hypoglycemia Standing Ord. Docusate Sodium (Docusate Sodium 100 Mg Capsule) 100 mg PO BID SUPRIYA Last Admin: 06/30/22 08:34 Dose: 100 mg Documented By: ADDISON Fentanyl (Fentanyl Citrate/Pf 100 Mcg/2 Ml Vial) 50 mcg IVPUSH Q5M PRN; Protocol PRN Reason: Pain, Severe (Pain Scale 7-10) Glucose (Glucose Gel 15 Gm Gel..Gram.) 15 gm PO Q15M PRN; Protocol PRN Reason: per Hypoglycemia Standing Ord. Heparin Sodium (Porcine) (Heparin Sodium,Porcine 5,000 Unit/Ml Vial) 5,000 unit SUBCUT Q8H [facility] Stop: 07/01/22 11:59 Last Admin: 06/30/22 12:11 Dose: 5,000 unit Documented By: ADDISON Hydromorphone HCl (Hydromorphone Hcl 1 Mg/Ml Syringe) 1 mg IVPUSH Q10M PRN; Protocol PRN Reason: post op pain Last Admin: 06/29/22 11:01 Dose: 1 mg Documented By: JENN Piperacillin Sod/Tazobactam (Sod 3.375 gm/ Sodium Chloride) 50 mls @ 100 mls/hr IV Q6H [facility] Last Infusion: 06/30/22 11:13 Dose: 0 mls/hr Documented By: ADDISON Vancomycin HCl 1,000 mg/Vancomycin HCl 750 mg/ Sodium Chloride 535 mls @ 267.5 mls/hr IV Q24H [facility] Last Infusion: 06/29/22 20:18 Dose: 0 mls/hr Documented By: MAEGAN Insulin Human Lispro (Insulin Lispro 100 Unit/Ml 3 Ml Vial) 0 unit SUBCUT QIDACHS [facility]; Protocol Last Admin: 06/30/22 11:36 Dose: 2 unit Documented By: ADDISON Melatonin (Melatonin 3 Mg Tablet) 6 mg PO BEDTIME PRN PRN Reason: Insomnia Morphine Sulfate (Morphine Sulfate 2 Mg/Ml Cartridge) 2 mg IVPUSH Q4H PRN; Protocol PRN Reason: Pain, Severe (Pain Scale 7-10) Nicotine (Nicotine 14 Mg Patch.Td24) 14 mg TRANSDERMA DAILY [facility] Last Admin: 06/30/22 08:34 Dose: 14 mg Documented By: ADDISON Ondansetron HCl (Ondansetron Hcl 4 Mg/2 Ml Vial) 4 mg IVPUSH Q8H PRN PRN Reason: Nausea and Vomiting Ondansetron HCl (Ondansetron Hcl 4 Mg/2 Ml Vial) 4 mg IVPUSH ONCE PRN PRN Reason: Nausea and Vomiting Oxycodone HCl (Oxycodone Hcl Immed Release 5 Mg Tablet) 5 mg PO Q6H PRN PRN Reason: Pain, Severe (Pain Scale 7-10) Last Admin: 06/30/22 10:12 Dose: 5 mg Documented By: ADDISON Oxycodone HCl (Oxycodone Hcl Immed Release 5 Mg Tablet) 10 mg PO ONCE PRN PRN Reason: Pain, Severe (Pain Scale 7-10) Pharmacy Consult (Consult Rx Vancomycin Dosing) 1 each MISCELLANE DAILY PRN PRN Reason: Consult order Pharmacy Consult (Consult Rx Perform Med Rec) 1 each MISCELLANE ONCE PRN PRN Reason: Consult order Pharmacy Consult (Consult Rx Vancomycin Dosing) 1 each MISCELLANE DAILY PRN PRN Reason: Consult order Labs CBC & Chem 7: 06/29/22 05:37 06/30/22 06:01 Labs: Laboratory Results - last 24 hr 06/29/22 06/29/22 06/29/22 15:55 16:08 19:53 ESR Estim Creat Clear Calc Estimated GFR POC Glucose 202 H 242 H Random Vancomycin 6.3 L Blood Type Antibody Screen 06/30/22 06/30/22 06/30/22 06:01 07:21 09:09 ESR 111 H Estim Creat Clear Calc 67.7 Estimated GFR 49 POC Glucose 260 H Random Vancomycin Blood Type Antibody Screen 06/30/22 06/30/22 09:09 11:09 ESR Estim Creat Clear Calc Estimated GFR POC Glucose 198 H Random Vancomycin Blood Type O Positive Antibody Screen NEGATIVE Microbiology Microbiology Results: Microbiology 06/27/22 15:57 Blood Culture - Preliminary Blood - Venous Prelim: GPC Gram Stain only 06/27/22 20:25 Urine Culture - Final Urine clean catch - Urine klein top Escherichia coli 06/27/22 19:07 Blood Culture - Preliminary Blood - Venous No growth after 48 hours. Assessment and Plan (1) Acute osteomyelitis of right foot: Status: Acute Plan 51-year-old male history of diabetes, hypertension, hyperlipidemia, chronic foot ulcers who presents to the emergency department with increasing infected right diabetic foot ulcer, previously no osteo Right diabetic foot ulcer with osteomyelitis continue vanc and Zosyn Surgery planning right BKA tomorrow id input appreciated MRI show osteo , to decide on antibiotics after surgery Positive 1 set of blood culture, GPC stain only, pending final sensitivity DM per pharmacy has not been filling medication follow POCs SSI, ADA diet discussed senior living meds and compliance CKD3 with SHI Stable tobacco dependence smoking cessation advised NRT Bacteriuria Urine culture showing E coli [id number] Antibiotics DVT ppx - lovenox patient will likely require overnight stay in the hospital for management of diabetic foot wound and osteomyelitis requiring IV antibiotics pending surgical intervention for amputation. Time Spent With Patient Time: Total time managing care of this patient today ____ minutes. Quality Stroke Does the patient have a stroke diagnosis?: No VTE Prior VTE?: No VTE Risk Level:: Medical - moderate - high VTE Device Contraindication: Treatment Not Indicated VTE Drug Contraindication: N/A - Med Ordered
[2022-06-30 14:00] VITALS: BP 162/81; PULSE 81; RESP 18; TEMP 36.3; O2SAT 99
--- NOTE | 2022-06-30 14:26 | HO.POSTANES ---
Post Anesthesia Evaluation Post Anesthesia Evaluation Vital Signs: Vital Signs Temp Pulse Resp BP Pulse Ox O2 Del Method 06/30/22 07:19 98.3 F 84 18 168/87 H 99 Room Air 06/30/22 02:56 98.5 F 96 18 142/80 H 97 Room Air Anesthesia: Monitored Mental Status: Awake Pain Control: Satisfactory (pain at debridement site) Nausea/Vomiting: None Hydration: Adequate Anesthesia-Related Issues: No Anes. Related Issues
[2022-06-30 15:15] VITALS: BP 170/85; BP 193/104; PULSE 85; PULSE 87; RESP 18; TEMP 37.1; O2SAT 100; O2SAT 98
[2022-06-30 16:16] LABS: Vancomycin Trough 8.1 mcg/mL (10.0-20.0)
--- NOTE | 2022-06-30 16:22 | HE.PHANOTE ---
Vancomycin Dosing Addendum Patients level came back this morning at 8.1 mg/L. Patients Scr went up from 1.49 to 1.51. Enrique monitor renal function, next level to be drawn tomorrow 07/01 @1500 to ensure safety vs efficacy. Continue 1750 mg Q24H. Predicted AUC 476 mg/L/hr
[2022-06-30] MEDS: amLODIPine Besylate 5 MG TABLET PO (17:32)
[2022-06-30] MEDS: vancomycin HCL 1,000 MG, vancomycin HCL 750 MG in 0.9 % Sodium Chloride 500 ML 267.5 MG IV (18:09)
[2022-06-30 19:15] VITALS: BP 149/77; PULSE 81; RESP 18; TEMP 37; O2SAT 97
[2022-06-30 22:00] VITALS: O2SAT 98
[2022-07-01] VITALS (21 sets, daily range): BP systolic 135–193; BP diastolic 72–104; PULSE 75–94; RESP 12–32; TEMP 36.1–37.3; O2SAT 92–100
[2022-07-01] MEDS: oxyCODONE HCl Immed Release 5 MG TABLET PO ×2 (05:30→15:22)
[2022-07-01] MEDS: Piperacillin Sodium/Tazobactam 3.375 GM in 0.9 % Sodium Chloride 50 ML IV ×3 (05:31→20:57)
[2022-07-01 06:56] LABS: Creatinine Clr Calc Pharmacy 77.5; Estimated Glomerular Filt Rate 57
--- NOTE | 2022-07-01 07:58 | PC.NURSE ---
IV to left forearm 20 gauge from floor is patent and flushed easy.
--- NOTE | 2022-07-01 08:03 | HO.ANESPROP2 ---
FORMERLY [facility], [facility] Active Problems Active Problems: All Active Problems (Updated 06/28/22 @ 15:38 by Sol Kirkland MD) Gram positive sepsis (Acute) Acute osteomyelitis of right foot (Acute) Diabetic foot ulcer (Acute) Acute hyperglycemia (Acute) Acute kidney injury (Acute) Foot abscess, right (Acute) Callus under metatarsal head (Acute) Diabetic foot (Acute) Hyperlipidemia LDL goal <100 (Acute) Benign essential hypertension (Acute) Obesity (BMI 30-39.9) (Acute) Dry gangrene (Acute) Osteomyelitis of left foot (Acute) Status post incision and drainage (Acute) Past Medical History Medical History (Updated 06/28/22 @ 15:38 by Sol Kirkland MD) Asthma Benign essential hypertension Callus under metatarsal head Chronic painful diabetic neuropathy Diabetes mellitus Diabetic foot Diabetic ulcer of foot associated with diabetes mellitus due to underlying condition, with fat layer exposed Dry gangrene Foot abscess, right Gram positive sepsis Hyperlipidemia LDL goal <100 Lumbar degenerative disc disease Neuropathy Obesity Obesity (BMI 30-39.9) Osteomyelitis of ankle or foot, acute Osteomyelitis of left foot Pure hypercholesterolemia Smoker Umbilical hernia Family History Family History Father Medical history unknown Mother Asthma Hypertension Diabetes Brother Chronic mental illness Diabetes Family history of problems with anesthesia: No Surgical History Surgical History H/O hernia repair Status post amputation of left great toe Status post debridement Status post incision and drainage Status post incision and drainage History of Problems with Anesthesia: No Social History Social History Household Members: Significant Other Household Members Other:: girlfriend Housing: Apartment Do you presently have visiting nurse or other home services: No Alcohol intake: former Patient Tobacco Use Status: Current everyday Tobacco user Tobacco use type: Cigarette Cigarette Packs Per Day: 0.5 Cigarettes Per Day: 10 Years Smoked: 30 Smoked in Last 30 Days: Yes Patient Interested in Nicotine Replacement: Yes Patient Given Instructions on How to Stop Smoking: Yes Date Education Initiated: 06/27/22 Second Hand Smoke Exposure: Yes Use of substances other than those prescribed or required for medical reasons: No Substance Use Type: Marijuana Currently Displaying Signs/Symptoms of Drug Intoxication Withdrawal: No Have you been hit, kicked, punched, or otherwise hurt by someone within the past year? If so, by whom?: No Do you feel safe in your current relationship?: Yes Is there a partner from a previous relationship who is making you feel unsafe now?: No Are you made to feel afraid or neglected: No Are you DNR?: No Advance Directives: Yes Advance Directives on File: Yes Advance Directives Date on File: 05/30/20 Do you have thoughts of harming others: None Do you have a plan to hurt others: No Plan Recently lost weight without trying: No Nutrition Risks: No Nutritional Risk Poor oral hygiene: No service: No Current occupational status: employed Meds Allergies Allergy/AdvReac Type Severity Reaction Status Date / Time gabapentin AdvReac Intermediate nausea, Verified 06/09/22 09:51 dizziness Active Medications: Current Medications Acetaminophen (Acetaminophen 325 Mg Tablet) 650 mg PO Q6H PRN PRN Reason: Pain, Mild (Pain Scale 1-3) Last Admin: 06/30/22 16:15 Dose: 650 mg Acetaminophen (Acetaminophen 325 Mg Tablet) 975 mg PO ONCE PRN PRN Reason: Pain, Mild (Pain Scale 1-3) Albuterol Sulfate (Albuterol Sulfate 90 Mcg 8 Gm Inhaler) 2 puff INHALE RQ4H PRN PRN Reason: shortness of breath or wheezing Last Admin: 06/29/22 08:15 Dose: 2 puff Amlodipine Besylate (Amlodipine Besylate 5 Mg Tablet) 5 mg PO DAILY [facility]; Protocol Last Admin: 06/30/22 17:32 Dose: 5 mg Dextrose (Dextrose 50 % 25 Gm/50 Ml Syringe) 25 gm IVPUSH Q15M PRN; Protocol PRN Reason: per Hypoglycemia Standing Ord. Docusate Sodium (Docusate Sodium 100 Mg Capsule) 100 mg PO BID [facility] Last Admin: 06/30/22 22:29 Dose: 100 mg Fentanyl (Fentanyl Citrate/Pf 100 Mcg/2 Ml Vial) 50 mcg IVPUSH Q5M PRN; Protocol PRN Reason: Pain, Severe (Pain Scale 7-10) Glucose (Glucose Gel 15 Gm Gel..Gram.) 15 gm PO Q15M PRN; Protocol PRN Reason: per Hypoglycemia Standing Ord. Heparin Sodium (Porcine) (Heparin Sodium,Porcine 5,000 Unit/Ml Vial) 5,000 unit SUBCUT Q8H [facility] Stop: 07/01/22 11:59 Last Admin: 06/30/22 22:36 Dose: Not Given Hydromorphone HCl (Hydromorphone Hcl 1 Mg/Ml Syringe) 1 mg IVPUSH Q10M PRN; Protocol PRN Reason: post op pain Last Admin: 06/29/22 11:01 Dose: 1 mg Piperacillin Sod/Tazobactam (Sod 3.375 gm/ Sodium Chloride) 50 mls @ 100 mls/hr IV Q6H [facility] Last Infusion: 07/01/22 06:05 Dose: Infused Vancomycin HCl 1,000 mg/Vancomycin HCl 750 mg/ Sodium Chloride 535 mls @ 267.5 mls/hr IV Q24H [facility] Last Infusion: 06/30/22 20:55 Dose: Infused Insulin Human Lispro (Insulin Lispro 100 Unit/Ml 3 Ml Vial) 0 unit SUBCUT QIDACHS [facility]; Protocol Last Admin: 06/30/22 22:29 Dose: 4 unit Melatonin (Melatonin 3 Mg Tablet) 6 mg PO BEDTIME PRN PRN Reason: Insomnia Morphine Sulfate (Morphine Sulfate 2 Mg/Ml Cartridge) 2 mg IVPUSH Q4H PRN; Protocol PRN Reason: Pain, Severe (Pain Scale 7-10) Nicotine (Nicotine 14 Mg Patch.Td24) 14 mg TRANSDERMA DAILY [facility] Last Admin: 06/30/22 08:34 Dose: 14 mg Ondansetron HCl (Ondansetron Hcl 4 Mg/2 Ml Vial) 4 mg IVPUSH Q8H PRN PRN Reason: Nausea and Vomiting Ondansetron HCl (Ondansetron Hcl 4 Mg/2 Ml Vial) 4 mg IVPUSH ONCE PRN PRN Reason: Nausea and Vomiting Oxycodone HCl (Oxycodone Hcl Immed Release 5 Mg Tablet) 5 mg PO Q6H PRN PRN Reason: Pain, Severe (Pain Scale 7-10) Last Admin: 07/01/22 05:30 Dose: 5 mg Oxycodone HCl (Oxycodone Hcl Immed Release 5 Mg Tablet) 10 mg PO ONCE PRN PRN Reason: Pain, Severe (Pain Scale 7-10) Pharmacy Consult (Consult Rx Vancomycin Dosing) 1 each MISCELLANE DAILY PRN PRN Reason: Consult order Pharmacy Consult (Consult Rx Perform Med Rec) 1 each MISCELLANE ONCE PRN PRN Reason: Consult order Pharmacy Consult (Consult Rx Vancomycin Dosing) 1 each MISCELLANE DAILY PRN PRN Reason: Consult order Home Medications Medication Instructions Recorded Confirmed Last Taken Type insulin syringe-needle U-100 0.3 #10 ea 06/19/20 03/02/22 Unknown History mL 31 gauge x 5/16 lancets 28 gauge #100 ea 06/19/20 03/02/22 Unknown History ibuprofen 200 mg tablet 200 mg PO Q6H PRN Pain 05/28/22 06/27/22 Unknown History Exam Exam Date and Time: July 01, 2022 08 Height,Weight and Vital Signs: Height 5 ft 8 in Weight 104.326 kg Last Vital Signs Temp 99.2 F 07/01/22 07:56 Pulse 87 07/01/22 07:56 Resp 18 07/01/22 07:56 BP 149/79 H 07/01/22 07:56 Pulse Ox 96 07/01/22 07:56 O2 Del Method 07/01/22 07:56 O2 Flow Rate 2 06/29/22 11:24 Pertinent Lab Results Pertinent Lab Results: Laboratory Tests 06/27/22 06/27/22 06/27/22 15:57 15:57 15:58 WBC 25.5 H RBC 3.91 L Hgb 10.1 L Hct 31.8 L MCV 81.3 MCH 25.8 L MCHC 31.8 RDW 13.2 Plt Count TNP MPV 11.3 Immature Gran % (Auto) 2.2 H Neut % (Auto) 91.4 H Lymph % (Auto) 1.9 L [place] % (Auto) 3.9 Eos % (Auto) 0.2 Baso % (Auto) 0.4 Lymph # (Auto) 0.5 L [place] # (Auto) 1.0 Eos # (Auto) 0.0 Baso # (Auto) 0.1 Abs Immat Gran (auto) 0.57 H Absolute Neuts (auto) 23.3 H Absolute Nucleated RBC 0.000 Nucleated RBC % (auto) 0.0 Smear Tech's Comments VERIFIED ESR Sodium Potassium Chloride Carbon Dioxide Anion Gap BUN Creatinine Estim Creat Clear Calc Estimated GFR POC Glucose Random Glucose Lactic Acid Lactic Acid F/U @ 2Hr Calcium Magnesium Total Bilirubin AST ALT Alkaline Phosphatase Troponin I High Sens Total Protein Albumin Urine Color Urine Appearance Urine pH Ur Specific [place] Urine Protein Urine Glucose (UA) Urine Ketones Urine Blood Urine Nitrite Ur Leukocyte Esterase Urine RBC Urine WBC Ur Squamous Epith Cells Urine Bacteria Hyaline Casts Granular Casts Vancomycin Trough Random Vancomycin COVID-19 (KURT) Negative COVID-19 Clin Com See Note Influenza Type A (GLENN) Negative Influenza Type B (GLENN) Negative Influenza A & B Note See Note Blood Type Antibody Screen 06/27/22 06/27/22 06/27/22 15:58 15:58 15:58 WBC RBC Hgb Hct MCV MCH MCHC RDW Plt Count MPV Immature Gran % (Auto) Neut % (Auto) Lymph % (Auto) [place] % (Auto) Eos % (Auto) Baso % (Auto) Lymph # (Auto) [place] # (Auto) Eos # (Auto) Baso # (Auto) Abs Immat Gran (auto) Absolute Neuts (auto) Absolute Nucleated RBC Nucleated RBC % (auto) Smear Tech's Comments ESR Sodium 134 L Potassium 4.8 Chloride 97 Carbon Dioxide 25 Anion Gap 17 BUN 41 H Creatinine 1.98 H Estim Creat Clear Calc 51.6 Estimated GFR 36 POC Glucose Random Glucose 308 H Lactic Acid 2.2 H* Lactic Acid F/U @ 2Hr Calcium 7.9 L Magnesium 2.2 Total Bilirubin 0.5 AST 17 ALT 21 Alkaline Phosphatase 387 H Troponin I High Sens 14.0 Total Protein 6.0 L Albumin 2.5 L Urine Color Urine Appearance Urine pH Ur Specific [place] Urine Protein Urine Glucose (UA) Urine Ketones Urine Blood Urine Nitrite Ur Leukocyte Esterase Urine RBC Urine WBC Ur Squamous Epith Cells Urine Bacteria Hyaline Casts Granular Casts Vancomycin Trough Random Vancomycin COVID-19 (KURT) COVID-19 Clin Com Influenza Type A (GLENN) Influenza Type B (GLENN) Influenza A & B Note Blood Type Antibody Screen 06/27/22 06/27/22 06/27/22 19:07 20:25 21:44 WBC RBC Hgb Hct MCV MCH MCHC RDW Plt Count MPV Immature Gran % (Auto) Neut % (Auto) Lymph % (Auto) [place] % (Auto) Eos % (Auto) Baso % (Auto) Lymph # (Auto) [place] # (Auto) Eos # (Auto) Baso # (Auto) Abs Immat Gran (auto) Absolute Neuts (auto) Absolute Nucleated RBC Nucleated RBC % (auto) Smear Tech's Comments ESR Sodium Potassium Chloride Carbon Dioxide Anion Gap BUN Creatinine Estim Creat Clear Calc Estimated GFR POC Glucose 355 H* Random Glucose Lactic Acid Lactic Acid F/U @ 2Hr 1.3 Calcium Magnesium Total Bilirubin AST ALT Alkaline Phosphatase Troponin I High Sens Total Protein Albumin Urine Color Dark Yellow Urine Appearance Cloudy Urine pH 5.5 Ur Specific [place] 1.020 Urine Protein 300 (3+) H Urine Glucose (UA) 500 H Urine Ketones Negative Urine Blood Moderate (2+) H Urine Nitrite Positive H Ur Leukocyte Esterase Small (1+) H Urine RBC 3-5 H Urine WBC 21-50 Ur Squamous Epith Cells 3-5 Urine Bacteria 2+ Hyaline Casts 0-2 Granular Casts Present Vancomycin Trough Random Vancomycin COVID-19 (KURT) COVID-19 Clin Com Influenza Type A (GLENN) Influenza Type B (GLENN) Influenza A & B Note Blood Type Antibody Screen 06/27/22 06/28/22 06/28/22 23:18 05:29 05:29 WBC 24.4 H RBC 3.16 L Hgb 8.1 L Hct 26.1 L MCV 82.6 MCH 25.6 L MCHC 31.0 RDW 13.2 Plt Count 430 H D MPV 11.4 Immature Gran % (Auto) 1.7 H Neut % (Auto) 85.2 H Lymph % (Auto) 4.0 L [place] % (Auto) 8.2 Eos % (Auto) 0.4 Baso % (Auto) 0.5 Lymph # (Auto) 1.0 L [place] # (Auto) 2.0 H Eos # (Auto) 0.1 Baso # (Auto) 0.1 Abs Immat Gran (auto) 0.41 H Absolute Neuts (auto) 20.8 H Absolute Nucleated RBC 0.000 Nucleated RBC % (auto) 0.0 Smear Tech's Comments VERIFIED ESR Sodium 137 Potassium 4.8 Chloride 103 Carbon Dioxide 24 Anion Gap 15 BUN 36 H Creatinine 1.54 H Estim Creat Clear Calc 66.4 Estimated GFR 48 POC Glucose 220 H Random Glucose 192 H Lactic Acid Lactic Acid F/U @ 2Hr Calcium 7.4 L D Magnesium Total Bilirubin AST ALT Alkaline Phosphatase Troponin I High Sens Total Protein Albumin Urine Color Urine Appearance Urine pH Ur Specific [place] Urine Protein Urine Glucose (UA) Urine Ketones Urine Blood Urine Nitrite Ur Leukocyte Esterase Urine RBC Urine WBC Ur Squamous Epith Cells Urine Bacteria Hyaline Casts Granular Casts Vancomycin Trough Random Vancomycin COVID-19 (KURT) COVID-19 Clin Com Influenza Type A (GLENN) Influenza Type B (GLENN) Influenza A & B Note Blood Type Antibody Screen 06/28/22 06/28/22 06/28/22 08:28 11:00 15:38 WBC RBC Hgb Hct MCV MCH MCHC RDW Plt Count MPV Immature Gran % (Auto) Neut % (Auto) Lymph % (Auto) [place] % (Auto) Eos % (Auto) Baso % (Auto) Lymph # (Auto) [place] # (Auto) Eos # (Auto) Baso # (Auto) Abs Immat Gran (auto) Absolute Neuts (auto) Absolute Nucleated RBC Nucleated RBC % (auto) Smear Tech's Comments ESR Sodium Potassium Chloride Carbon Dioxide Anion Gap BUN Creatinine Estim Creat Clear Calc Estimated GFR POC Glucose 153 H 190 H 192 H Random Glucose Lactic Acid Lactic Acid F/U @ 2Hr Calcium Magnesium Total Bilirubin AST ALT Alkaline Phosphatase Troponin I High Sens Total Protein Albumin Urine Color Urine Appearance Urine pH Ur Specific [place] Urine Protein Urine Glucose (UA) Urine Ketones Urine Blood Urine Nitrite Ur Leukocyte Esterase Urine RBC Urine WBC Ur Squamous Epith Cells Urine Bacteria Hyaline Casts Granular Casts Vancomycin Trough Random Vancomycin COVID-19 (KURT) COVID-19 Clin Com Influenza Type A (GLENN) Influenza Type B (GLENN) Influenza A & B Note Blood Type Antibody Screen 06/28/22 06/29/22 06/29/22 20:18 05:37 05:37 WBC 22.7 H RBC 3.31 L Hgb 8.5 L Hct 27.3 L MCV 82.5 MCH 25.7 L MCHC 31.1 RDW 13.6 Plt Count 412 H MPV 12.1 Immature Gran % (Auto) Neut % (Auto) Lymph % (Auto) [place] % (Auto) Eos % (Auto) Baso % (Auto) Lymph # (Auto) [place] # (Auto) Eos # (Auto) Baso # (Auto) Abs Immat Gran (auto) Absolute Neuts (auto) Absolute Nucleated RBC 0.000 Nucleated RBC % (auto) 0.0 Smear Tech's Comments ESR Sodium Potassium Chloride Carbon Dioxide Anion Gap BUN Creatinine 1.49 H Estim Creat Clear Calc 68.6 Estimated GFR 50 POC Glucose 179 H Random Glucose Lactic Acid Lactic Acid F/U @ 2Hr Calcium Magnesium Total Bilirubin AST ALT Alkaline Phosphatase Troponin I High Sens Total Protein Albumin Urine Color Urine Appearance Urine pH Ur Specific [place] Urine Protein Urine Glucose (UA) Urine Ketones Urine Blood Urine Nitrite Ur Leukocyte Esterase Urine RBC Urine WBC Ur Squamous Epith Cells Urine Bacteria Hyaline Casts Granular Casts Vancomycin Trough Random Vancomycin COVID-19 (KURT) COVID-19 Clin Com Influenza Type A (GLENN) Influenza Type B (GLENN) Influenza A & B Note Blood Type Antibody Screen 06/29/22 06/29/22 06/29/22 07:20 15:55 16:08 WBC RBC Hgb Hct MCV MCH MCHC RDW Plt Count MPV Immature Gran % (Auto) Neut % (Auto) Lymph % (Auto) [place] % (Auto) Eos % (Auto) Baso % (Auto) Lymph # (Auto) [place] # (Auto) Eos # (Auto) Baso # (Auto) Abs Immat Gran (auto) Absolute Neuts (auto) Absolute Nucleated RBC Nucleated RBC % (auto) Smear Tech's Comments ESR Sodium Potassium Chloride Carbon Dioxide Anion Gap BUN Creatinine Estim Creat Clear Calc Estimated GFR POC Glucose 159 H 202 H Random Glucose Lactic Acid Lactic Acid F/U @ 2Hr Calcium Magnesium Total Bilirubin AST ALT Alkaline Phosphatase Troponin I High Sens Total Protein Albumin Urine Color Urine Appearance Urine pH Ur Specific [place] Urine Protein Urine Glucose (UA) Urine Ketones Urine Blood Urine Nitrite Ur Leukocyte Esterase Urine RBC Urine WBC Ur Squamous Epith Cells Urine Bacteria Hyaline Casts Granular Casts Vancomycin Trough Random Vancomycin 6.3 L COVID-19 (KURT) COVID-19 Clin Com Influenza Type A (GLENN) Influenza Type B (GLENN) Influenza A & B Note Blood Type Antibody Screen 06/29/22 06/30/22 06/30/22 19:53 06:01 07:21 WBC RBC Hgb Hct MCV MCH MCHC RDW Plt Count MPV Immature Gran % (Auto) Neut % (Auto) Lymph % (Auto) [place] % (Auto) Eos % (Auto) Baso % (Auto) Lymph # (Auto) [place] # (Auto) Eos # (Auto) Baso # (Auto) Abs Immat Gran (auto) Absolute Neuts (auto) Absolute Nucleated RBC Nucleated RBC % (auto) Smear Tech's Comments ESR Sodium Potassium Chloride Carbon Dioxide Anion Gap BUN Creatinine 1.51 H Estim Creat Clear Calc 67.7 Estimated GFR 49 POC Glucose 242 H 260 H Random Glucose Lactic Acid Lactic Acid F/U @ 2Hr Calcium Magnesium Total Bilirubin AST ALT Alkaline Phosphatase Troponin I High Sens Total Protein Albumin Urine Color Urine Appearance Urine pH Ur Specific [place] Urine Protein Urine Glucose (UA) Urine Ketones Urine Blood Urine Nitrite Ur Leukocyte Esterase Urine RBC Urine WBC Ur Squamous Epith Cells Urine Bacteria Hyaline Casts Granular Casts Vancomycin Trough Random Vancomycin COVID-19 (KURT) COVID-19 Clin Com Influenza Type A (GLENN) Influenza Type B (GLENN) Influenza A & B Note Blood Type Antibody Screen 06/30/22 06/30/22 06/30/22 09:09 09:09 11:09 WBC RBC Hgb Hct MCV MCH MCHC RDW Plt Count MPV Immature Gran % (Auto) Neut % (Auto) Lymph % (Auto) [place] % (Auto) Eos % (Auto) Baso % (Auto) Lymph # (Auto) [place] # (Auto) Eos # (Auto) Baso # (Auto) Abs Immat Gran (auto) Absolute Neuts (auto) Absolute Nucleated RBC Nucleated RBC % (auto) Smear Tech's Comments ESR 111 H Sodium Potassium Chloride Carbon Dioxide Anion Gap BUN Creatinine Estim Creat Clear Calc Estimated GFR POC Glucose 198 H Random Glucose Lactic Acid Lactic Acid F/U @ 2Hr Calcium Magnesium Total Bilirubin AST ALT Alkaline Phosphatase Troponin I High Sens Total Protein Albumin Urine Color Urine Appearance Urine pH Ur Specific [place] Urine Protein Urine Glucose (UA) Urine Ketones Urine Blood Urine Nitrite Ur Leukocyte Esterase Urine RBC Urine WBC Ur Squamous Epith Cells Urine Bacteria Hyaline Casts Granular Casts Vancomycin Trough Random Vancomycin COVID-19 (KURT) COVID-19 Clin Com Influenza Type A (GLENN) Influenza Type B (GLENN) Influenza A & B Note Blood Type O Positive Antibody Screen NEGATIVE 06/30/22 06/30/22 06/30/22 15:26 15:46 19:16 WBC RBC Hgb Hct MCV MCH MCHC RDW Plt Count MPV Immature Gran % (Auto) Neut % (Auto) Lymph % (Auto) [place] % (Auto) Eos % (Auto) Baso % (Auto) Lymph # (Auto) [place] # (Auto) Eos # (Auto) Baso # (Auto) Abs Immat Gran (auto) Absolute Neuts (auto) Absolute Nucleated RBC Nucleated RBC % (auto) Smear Tech's Comments ESR Sodium Potassium Chloride Carbon Dioxide Anion Gap BUN Creatinine Estim Creat Clear Calc Estimated GFR POC Glucose 257 H 239 H Random Glucose Lactic Acid Lactic Acid F/U @ 2Hr Calcium Magnesium Total Bilirubin AST ALT Alkaline Phosphatase Troponin I High Sens Total Protein Albumin Urine Color Urine Appearance Urine pH Ur Specific [place] Urine Protein Urine Glucose (UA) Urine Ketones Urine Blood Urine Nitrite Ur Leukocyte Esterase Urine RBC Urine WBC Ur Squamous Epith Cells Urine Bacteria Hyaline Casts Granular Casts Vancomycin Trough 8.1 L Random Vancomycin COVID-19 (KURT) COVID-19 Clin Com Influenza Type A (GLENN) Influenza Type B (GLENN) Influenza A & B Note Blood Type Antibody Screen 07/01/22 07/01/22 06:06 07:49 WBC RBC Hgb Hct MCV MCH MCHC RDW Plt Count MPV Immature Gran % (Auto) Neut % (Auto) Lymph % (Auto) [place] % (Auto) Eos % (Auto) Baso % (Auto) Lymph # (Auto) [place] # (Auto) Eos # (Auto) Baso # (Auto) Abs Immat Gran (auto) Absolute Neuts (auto) Absolute Nucleated RBC Nucleated RBC % (auto) Smear Tech's Comments ESR Sodium Potassium Chloride Carbon Dioxide Anion Gap BUN Creatinine 1.32 Estim Creat Clear Calc 77.5 Estimated GFR 57 POC Glucose 190 H Random Glucose Lactic Acid Lactic Acid F/U @ 2Hr Calcium Magnesium Total Bilirubin AST ALT Alkaline Phosphatase Troponin I High Sens Total Protein Albumin Urine Color Urine Appearance Urine pH Ur Specific [place] Urine Protein Urine Glucose (UA) Urine Ketones Urine Blood Urine Nitrite Ur Leukocyte Esterase Urine RBC Urine WBC Ur Squamous Epith Cells Urine Bacteria Hyaline Casts Granular Casts Vancomycin Trough Random Vancomycin COVID-19 (KURT) COVID-19 Clin Com Influenza Type A (GLENN) Influenza Type B (GLENN) Influenza A & B Note Blood Type Antibody Screen Airway Mallampati Class: I TM Dist: >3cm Neck ROM: Full Loose/Missing/Broken Teeth: Yes Heart: ok Lungs: ok Assessment and Plan Assessment Anesthesia Assessment: Anesthesia Plan Discussed and Chart Reviewed Final Anesthetic Review Family History of Problems with Anesthesia: No History of Problems with Anesthesia: No NPO: Yes ASA Class: III Final Preanesthetic Review: No Changes in Pt Med Stat, Meds/Allgs Chart Reviewed, Consent Obtained/Reviewed and Anes Risks/Benef Reviewed Patient Risk: Intermediate Procedure Risk: Low Anesthetic Plan Anesthetic Plan: GA and Agree w/ Assess. and Plan Disposition: Standard PACU
--- NOTE | 2022-07-01 10:26 | W.PM.OPN ---
Operative Note Operative Note Date of Service: 07/01/22 Narrative: Preop diagnosis: diabetic foot infection with gangrene, right foot Postop diagnosis: The same Procedure: below-knee amputation, right foot Surgeon: Guido Keane MD blood and plasma laboratory assistant: LINWOOD Navarrete The patient is a 51-year-old male with a long history of diabetes, very poorly compliant with medical care, admitted for a right foot abscess. I had done a debridement in the operating room 2 days ago and there was note of some gangrene of the subcutaneous layer. He had initially wanted to save the right foot as much as possible from on amputation. However explained to him that this may still be possible but he will need extensive wound care and repeated debridement. I told him that he would probably stay hospital much longer with repeated debridement. He had wanted to go home for the holidays so he said that he would proceed with amputation. I had a long discussion with him about the risk of this procedure. He understood and had wanted to proceed. His was also able with discussion He was brought to the operating room placed general anesthesia via laryngeal mask airway. The right leg was prepped and draped usual sterile fashion. A tourniquet a on the thigh was applied. A surgical time-out was done. The patient was receiving scheduled antibiotics I marked my planned line of incision. I had marked the transverse incision about 12 cm distal to the tibial tubercle. I marked the rest of the planned line of incisions as well on both the medial and the lateral aspect, as well as the posterior transverse vision, in preparation for a Arzate flap. I then made my incision using blade 15 along this lines. This was carried down with electrocautery through the full-thickness of the skin and subcutaneous fat. The patient had a lot of oozing as we dissected through subcutaneous fat and the fascia and this was a majority of our blood loss. I continued to divide the fascia overlying the tibia. I was able to visualize the tibia itself then I proceeded to divide the rest of the muscle fibers surrounding this using electrocautery. At this point, we turned up the tourniquet. I circumferentially dissected the tibia to expose this completely. I used the periosteal elevator to expose tibia proximally in preparation for dissection. Once I was able to do good circumferential exposure of the tibia, I used the electric saw to divide this, with the bevel facing anteriorly. I continued to divide the rest of the surrounding muscle fibers with electrocautery and defined the 3 neurovascular bundles as we dissected the 3 muscle compartments. I exposed each vascular bundle circumferentially with Rita clamps and ligated this and divided this between ligations using Dexon 2-0 ties. By doing so I was able to divide the rest of the muscle compartments and expose the fibula. I circumference dissected the fibula and used the periosteal elevator to further define this. I used the bone saw so again to divide the fibula about 2 cm proximal to the line of transection of the tibia. With both the tibia and the fibula divided, I was able to expose the entire muscle fibers. I developed my gastrocnemius. I then divided the rest of the muscles away from the flap at the level of the tibial transection. I cauterized all oozing areas. Completed division of the muscle fibers was done until the leg was completely and sent as specimen. I smoothened the edges of the divided fibula using the rongeur as well as the bone file. Once all sharp edges had been smoothened, I proceeded to apply a bone wax on the divided tibia. We had released the tourniquet at this time. Tourniquet time was 47 minutes. I observed for hemostasis. All the major muscular bundles appeared hemostatic. There was some oozing along the subcutaneous layer and some raw muscle fibers which we were able to control well with electrocautery. I copiously irrigated. I proceeded to trim the gastrocnemius muscle flap. I reapposed the fascia from posterior to anterior using multiple sharp 2-0 sutures and adequately covered the stump. I then reapposed the subdermal layers with Dexon 3-0 interrupted sutures. Skin closure was achieved with skin maggie. I had trimmed the excess skin as well to prevent dog ears along the skin closure. We cleaned the BKA stump. We applied dry dressings and wrapped the leg with Kerlix roll as well as an Adria bandage. The procedure was completed. The patient tolerated the procedure well. There were no immediate complications. Initial and final counts of sponges and instruments were correct. Estimated blood loss was about 200 cc. The patient was extubated without difficulty and transferred to the recovery room with stable vital signs.
[2022-07-01] MEDS: HYDROmorphone HCl 1 MG/ML SYRINGE IVPUSH (11:15)
--- NOTE | 2022-07-01 11:18 | HO.PM.IMPN ---
Subjective Subjective Date of Service: 07/01/22 Interval History: Seen in f/u for diabetic foot ulcer, osteomylitis going for right BKA today Review of Systems no fever, pain in the foot Review of Systems: Yes all other systems are reviewed and are negative Physical Exam Vital Signs: Vital Signs: Last Vital Signs Temp 97 F 07/01/22 11:00 Pulse 94 07/01/22 11:00 Resp 18 07/01/22 11:15 BP 165/88 H 07/01/22 11:00 Pulse Ox 97 07/01/22 11:00 O2 Del Method 07/01/22 11:00 O2 Flow Rate 2 07/01/22 11:00 BMI result Body Mass Index 34.9 Const: Other: General: AO X 3, no acute distress Resp: CTA bilateral CVS: S1,S2,RRR GI: +BS, NT, no distention Skin: right foot swelling, drainage Neuro: motor grossly intact Psych: appropriate affect Objective Data Active Medications Acetaminophen (Acetaminophen 325 Mg Tablet) 650 mg PO Q6H PRN PRN Reason: Pain, Mild (Pain Scale 1-3) Last Admin: 06/30/22 16:15 Dose: 650 mg Documented By: ADDISON Albuterol Sulfate (Albuterol Sulfate 90 Mcg 8 Gm Inhaler) 2 puff INHALE RQ4H PRN PRN Reason: shortness of breath or wheezing Last Admin: 06/29/22 08:15 Dose: 2 puff Documented By: GEORGIANA Amlodipine Besylate (Amlodipine Besylate 5 Mg Tablet) 5 mg PO DAILY [facility]; Protocol Last Admin: 07/01/22 09:25 Dose: Not Given Documented By: CM Non-Admin Reason: Off Unit: Surgery Dextrose (Dextrose 50 % 25 Gm/50 Ml Syringe) 25 gm IVPUSH Q15M PRN; Protocol PRN Reason: per Hypoglycemia Standing Ord. Docusate Sodium (Docusate Sodium 100 Mg Capsule) 100 mg PO BID [facility] Last Admin: 07/01/22 09:25 Dose: Not Given Documented By: CM Non-Admin Reason: Off Unit: Surgery Fentanyl (Fentanyl Citrate/Pf 100 Mcg/2 Ml Vial) 50 mcg IVPUSH Q5M PRN; Protocol PRN Reason: Pain, Severe (Pain Scale 7-10) Fentanyl (Fentanyl Citrate/Pf 100 Mcg/2 Ml Vial) 50 mcg IVPUSH Q5M PRN; Protocol PRN Reason: Pain, Severe (Pain Scale 7-10) Glucose (Glucose Gel 15 Gm Gel..Gram.) 15 gm PO Q15M PRN; Protocol PRN Reason: per Hypoglycemia Standing Ord. Heparin Sodium (Porcine) (Heparin Sodium,Porcine 5,000 Unit/Ml Vial) 5,000 unit SUBCUT Q8H [facility] Stop: 07/01/22 11:59 Last Admin: 06/30/22 22:36 Dose: Not Given Documented By: MAEGAN Non-Admin Reason: pre op Hydromorphone HCl (Hydromorphone Hcl 0.5 Mg/0.5 Ml Syringe) 1 mg IVPUSH Q5M PRN; Protocol PRN Reason: Pain, Severe (Pain Scale 7-10) Piperacillin Sod/Tazobactam (Sod 3.375 gm/ Sodium Chloride) 50 mls @ 100 mls/hr IV Q6H [facility] Last Infusion: 07/01/22 06:05 Dose: 0 mls/hr Documented By: MAEGAN Vancomycin HCl 1,000 mg/Vancomycin HCl 750 mg/ Sodium Chloride 535 mls @ 267.5 mls/hr IV Q24H [facility] Last Infusion: 06/30/22 20:55 Dose: 0 mls/hr Documented By: MAEGAN Acetaminophen (Ofirmev) 1,000 mg in 100 mls @ 400 mls/hr IV ONCE ONE Stop: 07/01/22 11:30 Insulin Human Lispro (Insulin Lispro 100 Unit/Ml 3 Ml Vial) 0 unit SUBCUT QIDACHS [facility]; Protocol Last Admin: 07/01/22 09:25 Dose: Not Given Documented By: CM Non-Admin Reason: Off Unit: Surgery Melatonin (Melatonin 3 Mg Tablet) 6 mg PO BEDTIME PRN PRN Reason: Insomnia Morphine Sulfate (Morphine Sulfate 2 Mg/Ml Cartridge) 2 mg IVPUSH Q4H PRN; Protocol PRN Reason: Pain, Severe (Pain Scale 7-10) Nicotine (Nicotine 14 Mg Patch.Td24) 14 mg TRANSDERMA DAILY [facility] Last Admin: 07/01/22 09:25 Dose: Not Given Documented By: CM Non-Admin Reason: Off Unit: Surgery Ondansetron HCl (Ondansetron Hcl 4 Mg/2 Ml Vial) 4 mg IVPUSH Q8H PRN PRN Reason: Nausea and Vomiting Ondansetron HCl (Ondansetron Hcl 4 Mg/2 Ml Vial) 4 mg IVPUSH ONCE PRN PRN Reason: Nausea and Vomiting Ondansetron HCl (Ondansetron Hcl 4 Mg/2 Ml Vial) 4 mg IVPUSH ONCE PRN PRN Reason: Nausea and Vomiting Oxycodone HCl (Oxycodone Hcl Immed Release 5 Mg Tablet) 5 mg PO Q6H PRN PRN Reason: Pain, Severe (Pain Scale 7-10) Last Admin: 07/01/22 05:30 Dose: 5 mg Documented By: MAEGAN Oxycodone HCl (Oxycodone Hcl Immed Release 5 Mg Tablet) 10 mg PO ONCE PRN PRN Reason: Pain, Severe (Pain Scale 7-10) Pharmacy Consult (Consult Rx Vancomycin Dosing) 1 each MISCELLANE DAILY PRN PRN Reason: Consult order Pharmacy Consult (Consult Rx Perform Med Rec) 1 each MISCELLANE ONCE PRN PRN Reason: Consult order Pharmacy Consult (Consult Rx Vancomycin Dosing) 1 each MISCELLANE DAILY PRN PRN Reason: Consult order Labs CBC & Chem 7: 06/29/22 05:37 07/01/22 06:06 Labs: Laboratory Results - last 24 hr 06/30/22 06/30/22 06/30/22 11:09 15:26 15:46 Estim Creat Clear Calc Estimated GFR POC Glucose 198 H 257 H Vancomycin Trough 8.1 L 06/30/22 07/01/22 07/01/22 19:16 06:06 07:49 Estim Creat Clear Calc 77.5 Estimated GFR 57 POC Glucose 239 H 190 H Vancomycin Trough Microbiology Microbiology Results: Microbiology 06/27/22 15:57 Blood Culture - Preliminary Blood - Venous Gram positive cocci 06/27/22 20:25 Urine Culture - Final Urine clean catch - Urine klein top Escherichia coli Assessment and Plan (1) Acute osteomyelitis of right foot: Status: Acute Plan 51-year-old male history of diabetes, hypertension, hyperlipidemia, chronic foot ulcers who presents to the emergency department with increasing infected right diabetic foot ulcer, previously no osteo Right diabetic foot ulcer with osteomyelitis continue vanc and Zosyn Surgery input appreciated id input appreciated MRI show osteo , plan for amputation BKA today Positive 1 set of blood culture, stain GPC only, pending final sensitivity DM per pharmacy has not been filling medication follow POCs SSI, ADA diet discussed assisted meds and compliance CKD3 with SHI Stable tobacco dependence smoking cessation advised NRT Bacteriuria Urine culture showing E coli [id number] Antibiotics DVT ppx - lovenox patient will likely require overnight stay in the hospital for management of diabetic foot wound and osteomyelitis requiring IV antibiotics pending surgical intervention for amputation. Time Spent With Patient Time: Total time managing care of this patient today ____ minutes. Quality Stroke Does the patient have a stroke diagnosis?: No VTE Prior VTE?: No VTE Risk Level:: Medical - moderate - high VTE Device Contraindication: Treatment Not Indicated VTE Drug Contraindication: N/A - Med Ordered
[2022-07-01] MEDS: Acetaminophen 1,000 MG/100 ML PIGGYBACK 400 MG IV (11:26)
--- NOTE | 2022-07-01 12:07 | PM.EVENT ---
Event Note Date of Service: 07/01/22 Event Note: underwent BKA, right, this morning awake, drowsy but communicative stable VS dressings dry pain mgt keep dressings on for 48H, ok to do dry dressing change with Kerlix and Acewrap on Monday Marli called on phone to update Time Spent With Patient Time: Total time managing care of this patient today ____ minutes.
[2022-07-01] MEDS: amLODIPine Besylate 5 MG TABLET PO (12:21)
[2022-07-01] MEDS: HYDROmorphone HCl 0.5 MG/0.5 ML SYRINGE 1 MG IVPUSH (13:41)
[2022-07-01] MEDS: Insulin Lispro 100 UNIT/ML 3 ML VIAL SUBCUT ×3 (15:13→20:56)
[2022-07-01 16:13] LABS: Vancomycin Random 9.8 mcg/mL (15-20)
[2022-07-01 16:14] LABS: Troponin-I High Sensitivity 15.7 ng/L (<3.5-35.0)
[2022-07-01] MEDS: Morphine Sulfate 4 MG/ML CARTRIDGE IVPUSH ×2 (16:49→20:56)
[2022-07-01] MEDS: vancomycin HCL 1,250 MG in 0.9 % Sodium Chloride 250 ML 166.67 MG IV (16:50)
--- NOTE | 2022-07-01 17:35 | PC.NURSE ---
Rapid called @1450. Pt was clutching chest and. having trouble breathing, and unable to respond to verbal commands. O2 was off pt, placed back on and turned to 4L. Pt labored breathing returned to normal and was able to verbally respond. EKG was ordered which was WNL. His BP was rechecked 177/92. And has since to returned to baseline for pt. Treating Pt for pain post R BKA. Dressing CDI
[2022-07-01] MEDS: Docusate Sodium 100 MG CAPSULE PO (20:57)
[2022-07-02] MEDS: Morphine Sulfate 4 MG/ML CARTRIDGE IVPUSH ×4 (01:04→16:53)
[2022-07-02] MEDS: Piperacillin Sodium/Tazobactam 3.375 GM in 0.9 % Sodium Chloride 50 ML IV ×4 (02:56→20:33)
[2022-07-02] MEDS: oxyCODONE HCl Immed Release 5 MG TABLET PO (03:01)
[2022-07-02] MEDS: vancomycin HCL 1,250 MG in 0.9 % Sodium Chloride 250 ML 166.67 MG IV ×2 (04:54→17:21)
[2022-07-02 05:16] VITALS: BP 168/78; PULSE 90; RESP 18; TEMP 36.9; O2SAT 98
[2022-07-02 06:56] LABS: Hematocrit 25.6 % (42.0-52.0); Hemoglobin 7.9 g/dl (14.0-18.0); Mean Corpuscular HGB Conc 30.9 g/dl (31.0-36.0); Mean Corpuscular Hemoglobin 25.6 pg (27.0-33.0); Mean Corpuscular Volume 83.1 fL (80.0-98.0); Mean Platelet Volume 10.6 fL (9.4-12.4); Platelet Count 473 X10*3/uL (160-400); Red Blood Count 3.08 X10*6/uL (4.60-5.80); Red Cell Distribution Width 13.5 % (11.0-16.0); White Blood Count 19.7 X10*3/uL (4.8-10.8)
[2022-07-02 07:34] LABS: Creatinine Clr Calc Pharmacy 86.7; Estimated Glomerular Filt Rate > 60
[2022-07-02 07:39] LABS: Anion Gap 14 (12-20); Blood Urea Nitrogen 31 mg/dL (9-16); Calcium 7.2 mg/dL (8.4-10.2); Carbon Dioxide 24 mmol/L (22-29); Chloride 102 mmol/L (96-108); Creatinine Clr Calc Pharmacy 83.1; Estimated Glomerular Filt Rate > 60; Glucose Random 264 mg/dL (60-115); Potassium 4.9 mmol/L (3.3-5.1); Sodium 135 mmol/L (135-145)
[2022-07-02 07:54] VITALS: BP 166/94; PULSE 89; RESP 18; TEMP 36.9; O2SAT 99
[2022-07-02] MEDS: Insulin Lispro 100 UNIT/ML 3 ML VIAL SUBCUT ×4 (08:18→20:33)
[2022-07-02] MEDS: amLODIPine Besylate 5 MG TABLET PO (08:19)
[2022-07-02] MEDS: Nicotine 14 MG PATCH.TD24 TRANSDERMA (08:19)
[2022-07-02] MEDS: Docusate Sodium 100 MG CAPSULE PO ×2 (08:19→20:32)
--- NOTE | 2022-07-02 09:54 | HO.POSTANES ---
Post Anesthesia Evaluation Post Anesthesia Evaluation Vital Signs: Vital Signs Temp Pulse Resp BP Pulse Ox O2 Del Method 07/02/22 07:54 98.4 F 89 18 166/94 H 99 Room Air 07/02/22 05:16 98.4 F 90 18 168/78 H 98 Room Air Anesthesia: General LMA Mental Status: Awake Pain Control: Satisfactory Nausea/Vomiting: None Hydration: Adequate Anesthesia-Related Issues: No Anes. Related Issues
--- NOTE | 2022-07-02 09:54 | PM.PNGS ---
Subjective Subjective Date of Service: 07/02/22 Interval history: Patient is seen in coverage for Dr. Keane. He reports adequate analgesia from current pain regime. He is having some difficulty sleeping. He otherwise denies chest pain, difficulty breathing or shortness of breath. Physical Exam Vital Signs: Vital Signs: Last Vital Signs Temp 98.4 F 07/02/22 07:54 Pulse 89 07/02/22 07:54 Resp 18 07/02/22 07:54 BP 166/94 H 07/02/22 07:54 Pulse Ox 99 07/02/22 07:54 O2 Del Method 07/02/22 07:54 O2 Flow Rate 2 07/01/22 12:35 BMI result Body Mass Index 34.9 On exam, he is nontoxic His amputation dressing is clean, dry and intact Objective Data Active Medications Acetaminophen (Acetaminophen 325 Mg Tablet) 650 mg PO Q6H PRN PRN Reason: Pain, Mild (Pain Scale 1-3) Last Admin: 06/30/22 16:15 Dose: 650 mg Documented By: ADDISON Albuterol Sulfate (Albuterol Sulfate 90 Mcg 8 Gm Inhaler) 2 puff INHALE RQ4H PRN PRN Reason: shortness of breath or wheezing Last Admin: 06/29/22 08:15 Dose: 2 puff Documented By: GEORGIANA Amlodipine Besylate (Amlodipine Besylate 5 Mg Tablet) 5 mg PO DAILY [facility]; Protocol Last Admin: 07/02/22 08:19 Dose: 5 mg Documented By: CM Dextrose (Dextrose 50 % 25 Gm/50 Ml Syringe) 25 gm IVPUSH Q15M PRN; Protocol PRN Reason: per Hypoglycemia Standing Ord. Docusate Sodium (Docusate Sodium 100 Mg Capsule) 100 mg PO BID [facility] Last Admin: 07/02/22 08:19 Dose: 100 mg Documented By: CM Glucose (Glucose Gel 15 Gm Gel..Gram.) 15 gm PO Q15M PRN; Protocol PRN Reason: per Hypoglycemia Standing Ord. Piperacillin Sod/Tazobactam (Sod 3.375 gm/ Sodium Chloride) 50 mls @ 100 mls/hr IV Q6H [facility] Last Admin: 07/02/22 09:08 Dose: 100 mls/hr Documented By: CM Vancomycin HCl 1,250 mg/ (Sodium Chloride) 250 mls @ 166.667 mls/hr IV Q12H [facility] Last Infusion: 07/02/22 06:34 Dose: 0 mls/hr Documented By: RIDGE Insulin Human Lispro (Insulin Lispro 100 Unit/Ml 3 Ml Vial) 0 unit SUBCUT QIDACHS [facility]; Protocol Last Admin: 07/02/22 08:18 Dose: 4 unit Documented By: CM Lisinopril (Lisinopril 10 Mg Tablet) 10 mg PO DAILY [facility]; Protocol Last Admin: 07/02/22 08:19 Dose: 10 mg Documented By: CM Melatonin (Melatonin 3 Mg Tablet) 6 mg PO BEDTIME PRN PRN Reason: Insomnia Morphine Sulfate (Morphine Sulfate 4 Mg/Ml Cartridge) 4 mg IVPUSH Q4H PRN; Protocol PRN Reason: Pain, Severe (Pain Scale 7-10) Last Admin: 07/02/22 06:28 Dose: 4 mg Documented By: RIDGE Nicotine (Nicotine 14 Mg Patch.Td24) 14 mg TRANSDERMA DAILY [facility] Last Admin: 07/02/22 08:19 Dose: 14 mg Documented By: CM Ondansetron HCl (Ondansetron Hcl 4 Mg/2 Ml Vial) 4 mg IVPUSH Q8H PRN PRN Reason: Nausea and Vomiting Ondansetron HCl (Ondansetron Hcl 4 Mg/2 Ml Vial) 4 mg IVPUSH ONCE PRN PRN Reason: Nausea and Vomiting Oxycodone HCl (Oxycodone Hcl Immed Release 5 Mg Tablet) 5 mg PO Q6H PRN PRN Reason: Pain, Severe (Pain Scale 7-10) Last Admin: 07/02/22 03:01 Dose: 5 mg Documented By: RIDGE Oxycodone HCl (Oxycodone Hcl Immed Release 5 Mg Tablet) 10 mg PO ONCE PRN PRN Reason: Pain, Severe (Pain Scale 7-10) Pharmacy Consult (Consult Rx Vancomycin Dosing) 1 each MISCELLANE DAILY PRN PRN Reason: Consult order Pharmacy Consult (Consult Rx Perform Med Rec) 1 each MISCELLANE ONCE PRN PRN Reason: Consult order Pharmacy Consult (Consult Rx Vancomycin Dosing) 1 each MISCELLANE DAILY PRN PRN Reason: Consult order Labs CBC & Chem 7: 07/02/22 06:28 07/02/22 06:28 Labs: Laboratory Results - last 24 hr 07/01/22 07/01/22 07/01/22 12:05 14:39 15:29 MCV MCH MCHC RDW Plt Count MPV Absolute Nucleated RBC Nucleated RBC % (auto) Anion Gap Estim Creat Clear Calc Estimated GFR POC Glucose 217 H 268 H Random Glucose Calcium Troponin I High Sens Random Vancomycin 9.8 L 07/01/22 07/01/22 07/01/22 15:29 16:43 19:11 MCV MCH MCHC RDW Plt Count MPV Absolute Nucleated RBC Nucleated RBC % (auto) Anion Gap Estim Creat Clear Calc Estimated GFR POC Glucose 269 H 225 H Random Glucose Calcium Troponin I High Sens 15.7 Random Vancomycin 07/02/22 07/02/22 07/02/22 06:28 06:28 06:28 MCV 83.1 MCH 25.6 L MCHC 30.9 L RDW 13.5 Plt Count 473 H MPV 10.6 Absolute Nucleated RBC 0.000 Nucleated RBC % (auto) 0.0 Anion Gap 14 Estim Creat Clear Calc 86.7 83.1 Estimated GFR > 60 > 60 POC Glucose Random Glucose 264 H Calcium 7.2 L Troponin I High Sens Random Vancomycin 07/02/22 07:53 MCV MCH MCHC RDW Plt Count MPV Absolute Nucleated RBC Nucleated RBC % (auto) Anion Gap Estim Creat Clear Calc Estimated GFR POC Glucose 218 H Random Glucose Calcium Troponin I High Sens Random Vancomycin Microbiology Microbiology Results: Microbiology 06/27/22 15:57 Blood Culture - Preliminary Blood - Venous Gram positive cocci Procedures Date of Service Date of Service: 07/02/22 Progress Note: A&P Assessment and plan (1) Gram positive sepsis: Status: Acute (2) Acute osteomyelitis of right foot: Status: Acute (3) Diabetic foot ulcer: Status: Acute (4) Acute hyperglycemia: Status: Acute (5) Acute kidney injury: Status: Acute Plan Continue present management BKA dressing should be removed tomorrow; see orders from Dr. Keane Time Spent With Patient Time: Total time managing care of this patient today ____ minutes. Quality Stroke Does the patient have a stroke diagnosis?: No VTE Prior VTE?: No VTE Risk Level:: Medical - moderate - high VTE Device Contraindication: Treatment Not Indicated VTE Drug Contraindication: N/A - Med Ordered
--- NOTE | 2022-07-02 10:59 | HO.PM.IMPN ---
Subjective Subjective Date of Service: 07/02/22 Interval History: Seen in f/u for diabetic foot ulcer, osteomylitis Status post right BKA Pain under fair control getting diet well Review of Systems Review of Systems: Yes all other systems are reviewed and are negative Physical Exam Vital Signs: Vital Signs: Last Vital Signs Temp 98.4 F 07/02/22 07:54 Pulse 89 07/02/22 07:54 Resp 18 07/02/22 07:54 BP 166/94 H 07/02/22 07:54 Pulse Ox 99 07/02/22 07:54 O2 Del Method 07/02/22 07:54 O2 Flow Rate 2 07/01/22 12:35 BMI result Body Mass Index 34.9 Const: Other: General: AO X 3, no acute distress Resp: CTA bilateral CVS: S1,S2,RRR GI: +BS, NT, no distention Skin: post right BKA, 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 with no surrounding erythema or drainage Neuro: motor grossly intact Psych: appropriate affect Objective Data Active Medications Acetaminophen (Acetaminophen 325 Mg Tablet) 650 mg PO Q6H PRN PRN Reason: Pain, Mild (Pain Scale 1-3) Last Admin: 06/30/22 16:15 Dose: 650 mg Documented By: ADDISON Albuterol Sulfate (Albuterol Sulfate 90 Mcg 8 Gm Inhaler) 2 puff INHALE RQ4H PRN PRN Reason: shortness of breath or wheezing Last Admin: 06/29/22 08:15 Dose: 2 puff Documented By: GEORGIANA Amlodipine Besylate (Amlodipine Besylate 5 Mg Tablet) 5 mg PO DAILY [facility]; Protocol Last Admin: 07/02/22 08:19 Dose: 5 mg Documented By: CM Dextrose (Dextrose 50 % 25 Gm/50 Ml Syringe) 25 gm IVPUSH Q15M PRN; Protocol PRN Reason: per Hypoglycemia Standing Ord. Docusate Sodium (Docusate Sodium 100 Mg Capsule) 100 mg PO BID [facility] Last Admin: 07/02/22 08:19 Dose: 100 mg Documented By: CM Glucose (Glucose Gel 15 Gm Gel..Gram.) 15 gm PO Q15M PRN; Protocol PRN Reason: per Hypoglycemia Standing Ord. Piperacillin Sod/Tazobactam (Sod 3.375 gm/ Sodium Chloride) 50 mls @ 100 mls/hr IV Q6H [facility] Last Infusion: 07/02/22 10:03 Dose: 0 mls/hr Documented By: CM Vancomycin HCl 1,250 mg/ (Sodium Chloride) 250 mls @ 166.667 mls/hr IV Q12H [facility] Last Infusion: 07/02/22 06:34 Dose: 0 mls/hr Documented By: RIDGE Insulin Human Lispro (Insulin Lispro 100 Unit/Ml 3 Ml Vial) 0 unit SUBCUT QIDACHS [facility]; Protocol Last Admin: 07/02/22 08:18 Dose: 4 unit Documented By: CM Lisinopril (Lisinopril 10 Mg Tablet) 10 mg PO DAILY [facility]; Protocol Last Admin: 07/02/22 08:19 Dose: 10 mg Documented By: CM Melatonin (Melatonin 3 Mg Tablet) 6 mg PO BEDTIME PRN PRN Reason: Insomnia Morphine Sulfate (Morphine Sulfate 4 Mg/Ml Cartridge) 4 mg IVPUSH Q4H PRN; Protocol PRN Reason: Pain, Severe (Pain Scale 7-10) Last Admin: 07/02/22 06:28 Dose: 4 mg Documented By: RIDGE Nicotine (Nicotine 14 Mg Patch.Td24) 14 mg TRANSDERMA DAILY [facility] Last Admin: 07/02/22 08:19 Dose: 14 mg Documented By: CM Ondansetron HCl (Ondansetron Hcl 4 Mg/2 Ml Vial) 4 mg IVPUSH Q8H PRN PRN Reason: Nausea and Vomiting Ondansetron HCl (Ondansetron Hcl 4 Mg/2 Ml Vial) 4 mg IVPUSH ONCE PRN PRN Reason: Nausea and Vomiting Oxycodone HCl (Oxycodone Hcl Immed Release 5 Mg Tablet) 5 mg PO Q6H PRN PRN Reason: Pain, Severe (Pain Scale 7-10) Last Admin: 07/02/22 03:01 Dose: 5 mg Documented By: RIDGE Oxycodone HCl (Oxycodone Hcl Immed Release 5 Mg Tablet) 10 mg PO ONCE PRN PRN Reason: Pain, Severe (Pain Scale 7-10) Pharmacy Consult (Consult Rx Vancomycin Dosing) 1 each MISCELLANE DAILY PRN PRN Reason: Consult order Pharmacy Consult (Consult Rx Perform Med Rec) 1 each MISCELLANE ONCE PRN PRN Reason: Consult order Pharmacy Consult (Consult Rx Vancomycin Dosing) 1 each MISCELLANE DAILY PRN PRN Reason: Consult order Labs CBC & Chem 7: 07/02/22 06:28 07/02/22 06:28 Labs: Laboratory Results - last 24 hr 07/01/22 07/01/22 07/01/22 12:05 14:39 15:29 MCV MCH MCHC RDW Plt Count MPV Absolute Nucleated RBC Nucleated RBC % (auto) Anion Gap Estim Creat Clear Calc Estimated GFR POC Glucose 217 H 268 H Random Glucose Calcium Troponin I High Sens Random Vancomycin 9.8 L 07/01/22 07/01/22 07/01/22 15:29 16:43 19:11 MCV MCH MCHC RDW Plt Count MPV Absolute Nucleated RBC Nucleated RBC % (auto) Anion Gap Estim Creat Clear Calc Estimated GFR POC Glucose 269 H 225 H Random Glucose Calcium Troponin I High Sens 15.7 Random Vancomycin 07/02/22 07/02/22 07/02/22 06:28 06:28 06:28 MCV 83.1 MCH 25.6 L MCHC 30.9 L RDW 13.5 Plt Count 473 H MPV 10.6 Absolute Nucleated RBC 0.000 Nucleated RBC % (auto) 0.0 Anion Gap 14 Estim Creat Clear Calc 86.7 83.1 Estimated GFR > 60 > 60 POC Glucose Random Glucose 264 H Calcium 7.2 L Troponin I High Sens Random Vancomycin 07/02/22 07:53 MCV MCH MCHC RDW Plt Count MPV Absolute Nucleated RBC Nucleated RBC % (auto) Anion Gap Estim Creat Clear Calc Estimated GFR POC Glucose 218 H Random Glucose Calcium Troponin I High Sens Random Vancomycin Microbiology Microbiology Results: Microbiology 06/27/22 15:57 Blood Culture - Preliminary Blood - Venous Gram positive cocci Assessment and Plan (1) Acute osteomyelitis of right foot: Status: Acute (2) Diabetic foot ulcer: Status: Acute (3) Foot abscess, right: Status: Acute Plan 51-year-old male history of diabetes, hypertension, hyperlipidemia, chronic foot ulcers who presents to the emergency department with increasing infected right diabetic foot ulcer, previously no osteo Right diabetic foot ulcer with osteomyelitis Post right BKA, pod 1 continue vanc and Zosyn Surgery input appreciated id input appreciated Positive 1 set of blood culture, stain GPC only, pending final sensitivity , seems more for contaminants Pending repeat blood cultures DM per pharmacy has not been filling medication follow POCs SSI, ADA diet discussed halfway meds and compliance CKD3 with SHI Stable tobacco dependence smoking cessation advised NRT Bacteriuria Urine culture showing E coli [id number] currently on Antibiotics DVT ppx - lovenox patient will likely require overnight stay in the hospital for requiring IV antibiotics pending post amputation pending surgical team clearance for discharge Time Spent With Patient Time: Total time managing care of this patient today ____ minutes. Quality Stroke Does the patient have a stroke diagnosis?: No VTE Prior VTE?: No VTE Risk Level:: Medical - moderate - high VTE Device Contraindication: Treatment Not Indicated VTE Drug Contraindication: N/A - Med Ordered
[2022-07-02 14:29] VITALS: BP 166/94; PULSE 89; O2SAT 99
[2022-07-02 15:38] VITALS: BP 156/87; PULSE 90; RESP 20; TEMP 36.2; O2SAT 99
[2022-07-02 15:47] LABS: Vancomycin Random 16.6 mcg/mL (15-20)
--- NOTE | 2022-07-02 15:55 | HE.PHANOTE ---
Vancomycin Dosing Level therapeutic at 16.6 today. Renal function improving slightly each day. Will continue same regimen 1250 mg Q12H, with expected AUC 584 with a trough of 14.8. Next level in 24 hours on 07/03 @ 1500. Soledad HernandezD
[2022-07-02 20:02] VITALS: BP 160/90; PULSE 86; RESP 20; TEMP 37; O2SAT 97
[2022-07-02] MEDS: Acetaminophen 325 MG TABLET 650 MG PO (20:31)
[2022-07-02] MEDS: oxyCODONE HCl Immed Release 5 MG TABLET 10 MG PO (20:32)
[2022-07-03] MEDS: oxyCODONE HCl Immed Release 5 MG TABLET PO ×2 (02:30→09:07)
[2022-07-03] MEDS: Acetaminophen 325 MG TABLET 650 MG PO ×2 (02:31→09:08)
[2022-07-03] MEDS: Piperacillin Sodium/Tazobactam 3.375 GM in 0.9 % Sodium Chloride 50 ML IV ×2 (02:31→09:10)
[2022-07-03] MEDS: vancomycin HCL 1,250 MG in 0.9 % Sodium Chloride 250 ML 166.67 MG IV (04:55)
[2022-07-03 07:55] LABS: Creatinine Clr Calc Pharmacy 81.2; Estimated Glomerular Filt Rate > 60
[2022-07-03] MEDS: Insulin Lispro 100 UNIT/ML 3 ML VIAL SUBCUT (08:10)
[2022-07-03 09:06] VITALS: BP 163/94; PULSE 88; RESP 19; TEMP 36.3; O2SAT 99
[2022-07-03] MEDS: amLODIPine Besylate 5 MG TABLET PO (09:08)
[2022-07-03] MEDS: Docusate Sodium 100 MG CAPSULE PO (09:08)
[2022-07-03 09:58] LABS: MANUAL DIFF FLAG NO
--- NOTE | 2022-07-03 10:10 | PM.PNGS ---
Subjective Subjective Date of Service: 07/03/22 Interval history: The patient informed me that he is leaving whether or not I endorse his departure. Explained that he has a leukocytosis and leaving prematurely may cause . Patient stated that he did not care and was leaving regardless of what I said. Physical Exam Vital Signs: Vital Signs: Last Vital Signs Temp 97.4 F 07/03/22 09:06 Pulse 88 07/03/22 09:06 Resp 19 07/03/22 09:06 BP 163/94 H 07/03/22 09:06 Pulse Ox 99 07/03/22 09:06 O2 Del Method 07/03/22 09:06 O2 Flow Rate 2 07/01/22 12:35 BMI result Body Mass Index 34.9 Dressing is dry Objective Data Active Medications Acetaminophen (Acetaminophen 325 Mg Tablet) 650 mg PO Q6H PRN PRN Reason: Pain, Mild (Pain Scale 1-3) Last Admin: 07/03/22 09:08 Dose: 650 mg Documented By: CIPRIANO Albuterol Sulfate (Albuterol Sulfate 90 Mcg 8 Gm Inhaler) 2 puff INHALE RQ4H PRN PRN Reason: shortness of breath or wheezing Last Admin: 06/29/22 08:15 Dose: 2 puff Documented By: GEORGIANA Amlodipine Besylate (Amlodipine Besylate 5 Mg Tablet) 5 mg PO DAILY [facility]; Protocol Last Admin: 07/03/22 09:08 Dose: 5 mg Documented By: CIPRIANO Dextrose (Dextrose 50 % 25 Gm/50 Ml Syringe) 25 gm IVPUSH Q15M PRN; Protocol PRN Reason: per Hypoglycemia Standing Ord. Docusate Sodium (Docusate Sodium 100 Mg Capsule) 100 mg PO BID [facility] Last Admin: 07/03/22 09:08 Dose: 100 mg Documented By: CIPRIANO Glucose (Glucose Gel 15 Gm Gel..Gram.) 15 gm PO Q15M PRN; Protocol PRN Reason: per Hypoglycemia Standing Ord. Piperacillin Sod/Tazobactam (Sod 3.375 gm/ Sodium Chloride) 50 mls @ 100 mls/hr IV Q6H [facility] Last Infusion: 07/03/22 10:05 Dose: 0 mls/hr Documented By: CIPRIANO Vancomycin HCl 1,250 mg/ (Sodium Chloride) 250 mls @ 166.667 mls/hr IV Q12H [facility] Last Infusion: 07/03/22 06:33 Dose: 0 mls/hr Documented By: JEN Insulin Glargine (Insulin Glargine,Hum.Rec.Anlog 100 Unit/Ml 10 Ml Vial) 15 unit SUBCUT DAILY [facility] Last Admin: 07/03/22 09:09 Dose: 15 unit Documented By: CIPRIANO Insulin Human Lispro (Insulin Lispro 100 Unit/Ml 3 Ml Vial) 0 unit SUBCUT QIDACHS [facility]; Protocol Last Admin: 07/03/22 08:10 Dose: 6 unit Documented By: CIPRIANO Lisinopril (Lisinopril 10 Mg Tablet) 10 mg PO DAILY [facility]; Protocol Last Admin: 07/03/22 09:08 Dose: 10 mg Documented By: CIPRIANO Melatonin (Melatonin 3 Mg Tablet) 6 mg PO BEDTIME PRN PRN Reason: Insomnia Morphine Sulfate (Morphine Sulfate 4 Mg/Ml Cartridge) 4 mg IVPUSH Q4H PRN; Protocol PRN Reason: Pain, Severe (Pain Scale 7-10) Last Admin: 07/02/22 16:53 Dose: 4 mg Documented By: CM Nicotine (Nicotine 14 Mg Patch.Td24) 14 mg TRANSDERMA DAILY [facility] Last Admin: 07/03/22 09:09 Dose: Not Given Documented By: CIPRIANO Non-Admin Reason: Patient Refused Ondansetron HCl (Ondansetron Hcl 4 Mg/2 Ml Vial) 4 mg IVPUSH Q8H PRN PRN Reason: Nausea and Vomiting Ondansetron HCl (Ondansetron Hcl 4 Mg/2 Ml Vial) 4 mg IVPUSH ONCE PRN PRN Reason: Nausea and Vomiting Oxycodone HCl (Oxycodone Hcl Immed Release 5 Mg Tablet) 5 mg PO Q6H PRN PRN Reason: Pain, Severe (Pain Scale 7-10) Last Admin: 07/03/22 09:07 Dose: 5 mg Documented By: CIPRIANO Pharmacy Consult (Consult Rx Vancomycin Dosing) 1 each MISCELLANE DAILY PRN PRN Reason: Consult order Pharmacy Consult (Consult Rx Perform Med Rec) 1 each MISCELLANE ONCE PRN PRN Reason: Consult order Pharmacy Consult (Consult Rx Vancomycin Dosing) 1 each MISCELLANE DAILY PRN PRN Reason: Consult order Pharmacy Consult (Consult Rx Perform Med Rec) 1 each MISCELLANE ONCE PRN PRN Reason: Consult order Labs CBC & Chem 7: 07/02/22 06:28 07/03/22 07:15 Labs: Laboratory Results - last 24 hr 07/02/22 07/02/22 07/02/22 11:29 15:08 15:42 Estim Creat Clear Calc Estimated GFR POC Glucose 215 H 219 H Random Vancomycin 16.6 07/02/22 07/03/22 07/03/22 19:20 07:15 07:46 Estim Creat Clear Calc 81.2 Estimated GFR > 60 POC Glucose 268 H 273 H Random Vancomycin Microbiology Microbiology Results: Microbiology 06/27/22 19:07 Blood Culture - Final Blood - Venous No growth after 5 days. 07/01/22 15:29 Blood Culture - Preliminary Blood - Venous No growth after 24 hours. 07/01/22 15:29 Blood Culture - Preliminary Blood - Venous No growth after 24 hours. 06/27/22 15:57 Blood Culture - Preliminary Blood - Venous Gram positive cocci Procedures Date of Service Date of Service: 07/03/22 Progress Note: A&P Assessment and plan (1) Diabetic foot: Status: Acute (2) Gram positive sepsis: Status: Acute (3) Acute osteomyelitis of right foot: Status: Acute (4) Leukocytosis: Status: Acute Plan Explained to the patient that prematurely departing the hospital could be fatal and that I do not support his decision. He stated that he would take that risk. He will need to follow-up with his surgeon, Dr. Keane, at some point for sutures. Time Spent With Patient Time: Total time managing care of this patient today ____ minutes. Quality Stroke Does the patient have a stroke diagnosis?: No VTE Prior VTE?: No VTE Risk Level:: Medical - moderate - high VTE Device Contraindication: Treatment Not Indicated VTE Drug Contraindication: N/A - Med Ordered
[2022-07-03 10:16] LABS: Basophils Percent Auto 0.2 % (0-2); Eosinophils Absolute Auto 0.2 X10*3/uL (0.0-0.4); Eosinophils Percent Auto 1.5 % (0-4); Hematocrit 27.2 % (42.0-52.0); Hemoglobin 8.2 g/dl (14.0-18.0); Imm Gran Abs Auto 0.23 X10*3/uL (0.00-0.03); Imm Gran Pct Auto 1.6 % (0.0-0.4); Lymphocytes Absolute Auto 1.4 X10*3/uL (1.2-4.9); Lymphocytes Percent Auto 9.4 % (20-40); Mean Corpuscular HGB Conc 30.1 g/dl (31.0-36.0); Mean Corpuscular Hemoglobin 25.9 pg (27.0-33.0); Mean Corpuscular Volume 85.8 fL (80.0-98.0); Mean Platelet Volume 10.6 fL (9.4-12.4); Monocytes Absolute Auto 1.4 X10*3/uL (0.1-1.2); Monocytes Percent Auto 9.3 % (2-11); Neutrophils Absolute Auto 11.4 x10*3/uL (2.0-8.3); Platelet Count 500 X10*3/uL (160-400); Red Blood Count 3.17 X10*6/uL (4.60-5.80); Red Cell Distribution Width 13.4 % (11.0-16.0); White Blood Count 14.6 X10*3/uL (4.8-10.8)
--- NOTE | 2022-07-03 10:17 | P.DS_ITS ---
DS: Providers Provider Date of Service: 07/03/22 Date of admission: 06/27/22 18:58 Primary care physician: Gabe Chisholm MD Consults: 06/27/22 19:03 Consult to Infectious Diseases Routine Consulting Provider: Sol Kirkland Reason for consultation: diabetic foot ulcer Has provider been notified: No 06/28/22 08:55 Consult to General Surgery Routine Consulting Provider: Guido Keane Reason for consultation: diabetic foot ulcer DS: Diagnosis Discharge Diagnosis (1) Diabetic foot: Status: Acute (2) Gram positive sepsis: Status: Acute (3) Acute osteomyelitis of right foot: Status: Acute (4) Leukocytosis: Status: Acute DS: Summary Hospital Course Hospital Course: Admission note HPI 51-year-old male with history of diabetes who presents to the emergency department with right foot pain.? He has known infected right foot ulcer and was admitted on 05/28 for IV Abx but left AMA the next day and reports now that the foot has been progressively become more infected and ulcerated for the last 2 weeks. On last admission MRI showed no osteo.? Foot xray?Extensive soft tissue gas, predominantly seen in the plantar soft tissues of the midfoot, highly suspicious for necrotizing fasciitis. This has been evaluated by Dr. Keane and debrided and deemed no necrotizing fascitis Hospital course The patient was admitted to the hospital for evaluation of for a diabetic foot ulcer with evidence of osteomyelitis on the foot images. Treated with IV antibiotic vancomycin Zosyn as he was evaluated by surgical team who recommended amputation as no improvement was seen after debridement. Surgery was done on 07/01 with good results thus no bleeding or drainage was noted from the surgical stump. Patient insisted on leaving the hospital and decided to leave against medical advice in spite of telling him the risk of surgery complications like wound infection, sepsis and possible . He said he would take the risk and decided to leave the hospital. One bottle of blood culture was who for ring Gram-positive cocci since 06/27. Repeated cultures remain negative. He will need to follow-up with Dr. Keane from surgery for the wound check and sutures removal. Time Spent with Patient Time attestation: Total time managing care of this patient today ____ minutes. Discharge coordination time: Greater than 30 minutes Quality: Safe Use of Opioids Does Pt have an Active Cancer Diagnosis on the Problem List?: No Quality: Stroke Does the patient have a stroke diagnosis?: No Physical Exam Vital Signs: Vital Signs: Last Vital Signs Temp 97.4 F 07/03/22 09:06 Pulse 88 07/03/22 09:06 Resp 19 07/03/22 09:06 BP 163/94 H 07/03/22 09:06 Pulse Ox 99 07/03/22 09:06 O2 Del Method 07/03/22 09:06 O2 Flow Rate 2 07/01/22 12:35 BMI result Body Mass Index 34.9 Const: Other: General: AO X 3, no acute distress Resp: CTA bilateral CVS: S1,S2,RRR GI: +BS, NT, no distention Skin: post right BKA, 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 with no surrounding erythema or drainage Neuro: motor grossly intact Psych: appropriate affect DS: Data Data Completed and Pending Completed studies during hospitalization [Text1]: Pending at discharge 06/29/22 10:39 Surgical [PTH] Routine Procedures Detachment at Left 1st Toe, Complete, Open Approach (08/12/20) Detachment at Left 2nd Toe, Complete, Open Approach (08/12/20) Excision of Left Foot Subcutaneous Tissue and Fascia, Open Approach (05/26/20) Extraction of Left Foot Skin, External Approach (05/05/20) Insertion of Infusion Device into Superior Vena Cava, Percutaneous Approach (05/05/20) Ultrasonography of Superior Vena Cava, Guidance (05/05/20) Pending studies at discharge: Pending at discharge 07/01/22 09:44 Surgical [PTH] Routine Labs on day of discharge: Laboratory Results - last 24 hr 07/02/22 07/02/22 07/02/22 11:29 15:08 15:42 WBC RBC Hgb Hct MCV MCH MCHC RDW Plt Count MPV Immature Gran % (Auto) Neut % (Auto) Lymph % (Auto) Benzie % (Auto) Eos % (Auto) Baso % (Auto) Lymph # (Auto) Benzie # (Auto) Eos # (Auto) Baso # (Auto) Abs Immat Gran (auto) Absolute Neuts (auto) Absolute Nucleated RBC Nucleated RBC % (auto) Creatinine Estim Creat Clear Calc Estimated GFR POC Glucose 215 H 219 H Random Vancomycin 16.6 07/02/22 07/03/22 07/03/22 19:20 07:15 07:15 WBC 14.6 H RBC 3.17 L Hgb 8.2 L Hct 27.2 L MCV 85.8 MCH 25.9 L MCHC 30.1 L RDW 13.4 Plt Count 500 H MPV 10.6 Immature Gran % (Auto) 1.6 H Neut % (Auto) 78.0 H Lymph % (Auto) 9.4 L Benzie % (Auto) 9.3 Eos % (Auto) 1.5 Baso % (Auto) 0.2 Lymph # (Auto) 1.4 Benzie # (Auto) 1.4 H Eos # (Auto) 0.2 Baso # (Auto) 0.0 Abs Immat Gran (auto) 0.23 H Absolute Neuts (auto) 11.4 H Absolute Nucleated RBC 0.000 Nucleated RBC % (auto) 0.0 Creatinine 1.26 Estim Creat Clear Calc 81.2 Estimated GFR > 60 POC Glucose 268 H Random Vancomycin 07/03/22 07:46 WBC RBC Hgb Hct MCV MCH MCHC RDW Plt Count MPV Immature Gran % (Auto) Neut % (Auto) Lymph % (Auto) Benzie % (Auto) Eos % (Auto) Baso % (Auto) Lymph # (Auto) Benzie # (Auto) Eos # (Auto) Baso # (Auto) Abs Immat Gran (auto) Absolute Neuts (auto) Absolute Nucleated RBC Nucleated RBC % (auto) Creatinine Estim Creat Clear Calc Estimated GFR POC Glucose 273 H Random Vancomycin Preliminary micro results at discharge 07/01/22 15:29 Blood Culture - Preliminary Blood - Venous No growth after 24 hours. 07/01/22 15:29 Blood Culture - Preliminary Blood - Venous No growth after 24 hours. 06/27/22 15:57 Blood Culture - Preliminary Blood - Venous Gram positive cocci Imaging XR Foot : Radiologist's impression: ITS Impressions Chest X-Ray 06/27/22 15:35 IMPRESSION: No acute pulmonary disease. Foot X-Ray 06/27/22 15:35 IMPRESSION: Extensive soft tissue gas, predominantly seen in the plantar soft tissues of the midfoot, highly suspicious for necrotizing fasciitis. The findings and specific concern for necrotizing fasciitis were discussed with Anh Lo MD by telephone at 06/27/2022 4:11 PM and it was ascertained that the content and urgency of the report was understood at the time of direct communication. Foot MRI 06/27/22 20:20 IMPRESSION: 1. Large soft tissue defect along the plantar/medial surface of the forefoot with adjacent cellulitis. No definite abscess formation. Multiple foci of air within the adjacent subcutaneous tissues and intrinsic musculature of the foot, similar when compared to the prior radiographs. 2. Findings consistent with osteomyelitis at the base of the 1st proximal phalanx, new when compared to the MRI dated 05/28/2022. 3. Edema throughout the intrinsic musculature of the foot which can be seen in diabetic patients. Discharge Plan Discharge Patient Disposition: Left Against Medical Advice Discharge Diagnosis: Diabetic foot infection Osteomyelitis of right foot Referrals: Gabe Chisholm MD [Primary Care Provider] - 1 Week Discharge Medications: Continued (DME) insulin syr/ndl U100 half galen 0.3 mL 31 gauge x 5/16 syringe See Rx Instructions .ROUTE .MEDSUPPLY Qty: 100 0RF Rx Instructions: As directed - covering for DR. SILVESTRE HILL (DME) Kerlix 4 1/2 X 147 bandage See Rx Instructions .ROUTE .MEDSUPPLY Qty: 48 1RF Rx Instructions: apply to wound daily (DME) adhesive tape 1 1/2 X 10 -yard tape See Rx Instructions .ROUTE .MEDSUPPLY Qty: 2 1RF Rx Instructions: apply to wound daily (DME) blood sugar diagnostic Strip See Rx Instructions .ROUTE .MEDSUPPLY Qty: 100 0RF Rx Instructions: As directed (DME) blood-glucose meter Kit See Rx Instructions .ROUTE .MEDSUPPLY Qty: 1 0RF Rx Instructions: As directed (DME) FreeStyle Precision Mushtaq Strips Strip See Rx Instructions .ROUTE .MEDSUPPLY Qty: 75 6RF Rx Instructions: As directed three times a day (DME) FreeStyle Swati 14 Day [place]ain [facility] [place] See Rx Instructions .ROUTE .MEDSUPPLY Qty: 1 0RF Rx Instructions: As directed (DME) adhesive tape 2 X 10 -yard tape See Rx Instructions .ROUTE .MEDSUPPLY Qty: 1 0RF Rx Instructions: As directed (DME) gauze bandage [Band-Aid Gauze Pads] 4 X 4 bandage See Rx Instructions .Route Qty: 25 3RF Rx Instructions: As directed (DME) off loading shoe Kit See Rx Instructions .Route Qty: 1 0RF Rx Instructions: As directed (DME) diabetic shoe to be fitted See Rx Instructions .Route .MEDSUPPLY Qty: 1 0RF Rx Instructions: As directed (DME) diabetic shoe inserts to be sized See Rx Instructions .Route .MEDSUPPLY Qty: 1 0RF Rx Instructions: As directed albuterol sulfate [Ventolin HFA] 90 mcg/actuation HFA aerosol inhaler 2 puff inhalation Q4-6H PRN (Reason: shortness of breath or wheezing) Qty: 8.5 0RF ibuprofen 200 mg Tablet 200 mg PO Q6H PRN (Reason: Pain) (DME) pen needle, diabetic [BD Ultra-Fine Nataliya Pen Needle] 32 gauge x 5/32 needle See Rx Instructions .ROUTE .MEDSUPPLY Qty: 50 3RF Rx Instructions: As directed (DME) insulin syringe-needle U-100 0.3 mL 31 gauge x 5/16 syringe See Rx Instructions .ROUTE .MEDSUPPLY Qty: 10 Rx Instructions: As directed (DME) lancets 28 gauge misc See Rx Instructions topical .MEDSUPPLY Qty: 100 Rx Instructions: As directed (DME) calcium alginate See Rx Instructions .Route .MEDSUPPLY Qty: 5 0RF Rx Instructions: As directed - apply to wound bed daily (DME) Kerlix 4 X 4 sponge See Rx Instructions .ROUTE .MEDSUPPLY Qty: 4 1RF Rx Instructions: 4 boxes of 4x4 kerlix fluff gauze - apply to wound daily (DME) gauze bandage [Band-Aid Rolled Gauze] 3 X 2.5 -yard bandage See Rx Instructions .Route Qty: 30 1RF Rx Instructions: Apply around foot/wound daily and as needed. Discharge Orders: Discharge Order (Routine); Ordered 07/03/22 Ordered By: Casandra Herndon Care Plan Goals: . Health Concerns: . Plan of Treatment: . Assessment: . Discharge Date/Time: 07/03/22 10:31
--- NOTE | 2022-07-03 10:27 | PHA.MEDREC ---
Pharmacy Consult ? Medication Reconciliation Pharmacy has completed the medication reconciliation. Dr. Herndon wanted confirmation on patient insulin dosing so put in second request for med rec. By the time I got to patient room he had left ama. Unsure what patient is doing for insulin coverage at home since he doesn't seem to have claim history for it recently.
== END 2022-07-03 10:31 | disposition left against medical advice (07) | DRG 710 ==
LOC: HO.ED 17:11 → HO.EDOVER 19:16 → HO.S3 20:37
PROVIDERS: Nurse Practitioner Family; Physician Assistant Medical; Surgery; Admitting Provider Internal Medicine; Emergency Provider Emergency Medicine; PCP Internal Medicine; Visit Provider Student in an Organized Health Care Education/Training Program
PROC: 0JBQ0ZZ Excision of Right Foot Subcutaneous Tissue and Fascia, Open Approach (ICD-10-PCS; principal; 2022-06-29 09:50)
PROC: 0Y6H0Z2 Detachment at Right Lower Leg, Mid, Open Approach (ICD-10-PCS; CPT 27880; principal; 2022-07-01 09:20)
DX: A41.9 Sepsis, unspecified organism (principal); A48.0 Gas gangrene; N17.9 Acute kidney failure, unspecified; E11.22 Type 2 diabetes mellitus with diabetic chronic kidney disease; E11.52 Type 2 diabetes mellitus with diabetic peripheral angiopathy with gangrene; E11.621 Type 2 diabetes mellitus with foot ulcer; M86.171 Other acute osteomyelitis, right ankle and foot; E11.40 Type 2 diabetes mellitus with diabetic neuropathy, unspecified; I12.9 Hypertensive chronic kidney disease with stage 1 through stage 4 chronic kidney disease, or unspecified chronic kidney disease; N18.30 Chronic kidney disease, stage 3 unspecified; E66.9 Obesity, unspecified; E78.5 Hyperlipidemia, unspecified; E11.65 Type 2 diabetes mellitus with hyperglycemia; Z68.35 Body mass index [BMI] 35.0-35.9, adult; F17.210 Nicotine dependence, cigarettes, uncomplicated; Z20.822 Contact with and (suspected) exposure to COVID-19; Z91.199 Patient's noncompliance with other medical treatment and regimen due to unspecified reason; E11.69 Type 2 diabetes mellitus with other specified complication; L97.412 Non-pressure chronic ulcer of right heel and midfoot with fat layer exposed; Z71.6 Tobacco abuse counseling; Z88.8 Allergy status to other drugs, medicaments and biological substances; Z79.4 Long term (current) use of insulin; Z79.899 Other long term (current) drug therapy
CPT/HCPCS: 36415; 71045; 73630; 73720; 80048; 80053; 80202; 81001; 82565; 82947; 83605; 83735; 84484; 85025; 85027; 85652; 86850; 86900; 86901; 87040; 87076; 87086; 87088; 87186; 87205; 87502; 87635; 88304; 88307; 88311; 93005; 94640; 97162; 99285; A9585; J0131; J1170; J2250; J2270; J2405; J2543; J2795; J3010; J3370

== ENCOUNTER → 2022-07-14 09:45 | Outpatient (BNVA) | payer OTHER, SELFPAY | PROVIDERS: PCP Internal Medicine; Visit Provider Physician Assistant Surgical | DX: E11.621 Type 2 diabetes mellitus with foot ulcer (principal); L97.412 Non-pressure chronic ulcer of right heel and midfoot with fat layer exposed; E11.65 Type 2 diabetes mellitus with hyperglycemia; Z89.511 Acquired absence of right leg below knee; Z89.412 Acquired absence of left great toe | CPT/HCPCS: 99212 ==

== ENCOUNTER → 2022-08-04 15:11 | Outpatient (BNVA) | payer OTHER, SELFPAY | PROVIDERS: PCP Internal Medicine; Referring Provider Internal Medicine; Visit Provider Surgery | DX: Z13.89 Encounter for screening for other disorder (principal) ==

== ENCOUNTER → 2022-10-12 14:41 | Outpatient (BNVA) | payer OTHER, SELFPAY | PROVIDERS: PCP Internal Medicine; Referring Provider Internal Medicine; Visit Provider Surgery | DX: Z89.511 Acquired absence of right leg below knee (principal) | CPT/HCPCS: 99212 ==

== ENCOUNTER 2022-12-26 21:22 | Emergency (ER) | payer OTHER, SELFPAY ==
--- NOTE | 2022-12-26 | ECG_ITS ---
Test Reason : CP Blood Pressure : / mmHG Vent. Rate : 096 BPM Atrial Rate : 096 BPM P-R Int : 152 ms QRS Dur : 092 ms QT Int : 354 ms P-R-T Axes : 034 023 096 degrees QTc Int : 447 ms Normal sinus rhythm Low voltage QRS Cannot rule out Anterior infarct , age undetermined Abnormal ECG When compared with ECG of 01-JUL-2022 15:09, No significant change was found Referred By: Generic ED Physician Electronically Signed By:OSMAN DONOVAN
--- NOTE | ~2022-12-26 | XR_ITS ---
EXAMINATION: XR CHEST CLINICAL INFORMATION: Cough. COMPARISON: None available. TECHNIQUE: Frontal view of the chest was obtained. FINDINGS: The lungs are well expanded without acute pneumonic process. Mild cardiomegaly with prominent bilateral hilar markings question mild congestion versus interstitial pneumonitis. No pleural effusion seen. No gross bony abnormality XR/XR chest 1V IMPRESSION: Mild cardiomegaly with prominent bilateral hilar markings question mild congestion versus interstitial pneumonitis. No pleural effusion seen.
[2022-12-26 21:46] VITALS: BP 190/106; PULSE 94; RESP 20; TEMP 36.9; O2SAT 96; BMI 32.9
[2022-12-26 21:51] LABS: Hematocrit 35.3 % (42.0-52.0); Hemoglobin 10.9 g/dl (14.0-18.0); Mean Corpuscular HGB Conc 30.9 g/dl (31.0-36.0); Mean Corpuscular Hemoglobin 25.2 pg (27.0-33.0); Mean Corpuscular Volume 81.7 fL (80.0-98.0); Mean Platelet Volume 10.8 fL (9.4-12.4); Platelet Count 293 X10*3/uL (160-400); Red Blood Count 4.32 X10*6/uL (4.60-5.80); Red Cell Distribution Width 14.1 % (11.0-16.0); White Blood Count 5.4 X10*3/uL (4.8-10.8)
--- NOTE | 2022-12-26 21:58 | ED.CHESTPAIN ---
HPI - Chest Pain General Chief Complaint: Chest Pain Stated Complaint: Diff breathing/Chest pain Time Seen by Provider: 12/26/22 21:57 Source: patient Mode of arrival: ambulatory Limitations: no limitations History of Present Illness HPI narrative: Patient with history of diabetes hypertension not taking any medication although does have a history of asthma when coughing for last 2 -3 days with chest pain pain is like tight feeling specially get worse on coughing no fever no chills patient does not have any glucose testing strips and not taking any insulin. No fever no chills Related Data Home Medications Medication Instructions Recorded Confirmed insulin syringe-needle U-100 0.3 #10 ea 06/19/20 10/12/22 mL 31 gauge x 5/16 lancets 28 gauge #100 ea 06/19/20 10/12/22 ibuprofen 200 mg tablet 200 mg PO Q6H PRN Pain 05/28/22 10/12/22 Previous Rx's Medication Instructions Recorded insulin syr/ndl U100 half galen 0.3 #100 ea 05/11/20 mL 31 gauge x 5/16 pen needle, diabetic 32 gauge x #50 ea 05/22/2032 (BD Ultra-Fine Nataliya Pen Needle) adhesive tape 1 1/2 X 10 yard #2 ea 10/22/20 gauze bandage 4 1/2 X 147 #48 ea 10/22/20 (Kerlix) blood sugar diagnostic #100 ea 05/24/21 blood-glucose meter #1 ea 05/24/21 blood sugar diagnostic (FreeStyle #75 ea 05/25/21 Precision Mushtaq Strips) flash glucose scanning reader #1 ea 05/28/21 (FreeStyle Swati 14 Day [place]) adhesive tape 2 X 10 yard #1 ea 07/21/21 gauze bandage 4 X 4 (Band-Aid #25 ea 07/21/21 Gauze Pads) off loading shoe #1 ea 07/21/21 diabetic shoe #1 ea 03/09/22 diabetic shoe inserts #1 ea 03/09/22 calcium alginate #5 ea 06/09/22 gauze bandage 3 X 2.5 yard #30 ea 06/09/22 (Band-Aid Rolled Gauze) gauze bandage 4 X 4 sponge #4 ea 07/14/22 (Kerlix) albuterol sulfate 90 mcg/actuation 2 puff inhalation Q4-6H PRN 12/20/22 aerosol inhaler (Ventolin HFA) shortness of breath or wheezing #8.5 grams albuterol sulfate 90 mcg/actuation 2 puff inhalation Q4-6H PRN 12/27/22 aerosol inhaler (ProAir HFA) shortness of breath or wheezing #8.5 grams amlodipine 5 mg tablet 5 mg PO DAILY #30 tabs 12/27/22 blood sugar diagnostic (FreeStyle #50 ea 12/27/22 Lite Strips) cefuroxime axetil 500 mg tablet 500 mg PO BID #20 tabs 12/27/22 doxycycline hyclate 100 mg tablet 100 mg PO BID #20 tabs 12/27/22 glipizide 10 mg tablet, extended 10 mg PO DAILY #30 tabs 12/27/22 release 24 hr (Glucotrol XL) Allergies Allergy/AdvReac Type Severity Reaction Status Date / Time gabapentin AdvReac Intermediate nausea, Verified 10/12/22 14:52 dizziness Review of Systems Review of Systems: Yes all other systems are reviewed and are negative [facility] Past Medical History Medical History Asthma Benign essential hypertension Callus under metatarsal head Chronic painful diabetic neuropathy Diabetes mellitus Diabetes mellitus Diabetic foot Diabetic ulcer of foot associated with diabetes mellitus due to underlying condition, with fat layer exposed Dry gangrene Foot abscess, right Gram positive sepsis Hyperlipidemia LDL goal <100 Lumbar degenerative disc disease Neuropathy Obesity Obesity (BMI 30-39.9) Osteomyelitis of ankle or foot, acute Osteomyelitis of left foot Pure hypercholesterolemia Smoker Umbilical hernia Surgical History H/O hernia repair Status post amputation of left great toe Status post debridement Status post incision and drainage Status post incision and drainage Family History Family History Father Medical history unknown Mother Asthma Hypertension Diabetes Brother Chronic mental illness Diabetes Social History Social History Household Members: Significant Other Household Members Other:: girlfriend Housing: Apartment Do you presently have visiting nurse or other home services: No Alcohol intake: former Patient Tobacco Use Status: Current everyday Tobacco user Tobacco use type: Cigarette Cigarette Packs Per Day: 0.5 Cigarettes Per Day: 10 Years Smoked: 30 Smoked in Last 30 Days: No Second Hand Smoke Exposure: Yes Use of substances other than those prescribed or required for medical reasons: No Substance Use Type: Marijuana Any prior treatment program specific to substance use: No Advance Directives: Yes Advance Directives on File: Yes Advance Directives Date on File: 05/30/20 service: No Current occupational status: employed Physical Exam Vital Signs: Vital Signs: Last Vital Signs Temp 98.0 F 12/26/22 22:23 Pulse 95 12/26/22 23:47 Resp 20 12/26/22 23:47 BP 166/105 H 12/26/22 23:47 Pulse Ox 96 12/26/22 23:47 O2 Del Method Room Air 12/26/22 22:23 BMI result Body Mass Index 32.9 Appearance: Alert. Oriented X3. No acute distress. Eyes: PERRLA, No Nystagmus ENT: Pharynx normal. Oral Mucosa moist Neck: Normal inspection. Neck supple. CVS: Normal heart rate and rhythm. Pulses normal. Respiratory: No respiratory distress. Equal air entry bilateral, bilateral rhonchi no rales Abdomen: Soft and nontender. Bowel sounds are present, no mass palpable, no CVA tenderness Skin: Skin warm and dry. Normal skin color. Normal skin turgor. Extremities: No lower extremity edema. No calf tenderness right BKA Neuro: Oriented X 3. No motor deficit. No sensory deficit.No cerebellar signs , cranial nerves II-XII intact Medications Administered Discontinued Medications Generic Name Dose Route Start Last Admin Trade Name Everardo PRN Reason Stop Dose Admin Cefuroxime Axetil 500 mg 12/26/22 22:20 12/26/22 23:09 Cefuroxime Axetil 500 Mg Tablet PO 12/26/22 22:21 500 mg ONCE ONE Administration Albuterol Sulfate 2.5 mg/ 0 mg 12/26/22 22:09 12/26/22 22:25 Albuterol/Ipratropium 3 ml INHALE 12/26/22 22:10 1 each ONCE ONE Administration Doxycycline Monohydrate 100 mg 12/26/22 22:20 12/26/22 23:09 Doxycycline Monohydrate 100 Mg Capsule PO 12/26/22 22:21 100 mg ONCE ONE Administration Medical Decision Making Medical Decision Making [facility] Narrative: Patient noted to have high blood pressure on arrival 188/105 repeat blood pressure was 166/105 with during stay in the hospital in 06/30 when he had BKA done blood pressure was also elevated and patient was given amlodipine patient creatinine is slightly elevated to 1.5 in the past also patient is same number. Improved to 1.26 at the time of discharge in 07/03/2022. Patient advised to drink plenty of fluid likely patient has CKD secondary to diabetes and hypertension chest x-ray negative for any acute infiltrate likely bronchitis will discharge patient home on doxycycline and Ceftin will give him amlodipine albuterol inhaler glipizide for blood sugar control patient's chest pain was atypical with no delta change in troponin I EKG without any ischemic changes Lab Data [facility] Lab Attestation statement: I reviewed the patient's lab results. 12/26/22 21:45 12/26/22 21:45 Labs: Lab Results 12/26/22 12/26/22 12/26/22 Range/Units 21:45 21:45 21:45 WBC 5.4 (4.8-10.8) X10*3/uL RBC 4.32 L D (4.60-5.80) X10*6/uL Hgb 10.9 L D (14.0-18.0) g/dl Hct 35.3 L D (42.0-52.0) % MCV 81.7 (80.0-98.0) fL MCH 25.2 L (27.0-33.0) pg MCHC 30.9 L (31.0-36.0) g/dl RDW 14.1 (11.0-16.0) % Plt Count 293 D (160-400) X10*3/uL MPV 10.8 (9.4-12.4) fL Absolute Nucleated RBC 0.000 (0.0-0.012) X10*3/uL Nucleated RBC % (auto) 0.0 (0.0-0.2) /100WBC Sodium 143 (135-145) mmol/L Potassium 4.3 (3.3-5.1) mmol/L Chloride 108 (96-108) mmol/L Carbon Dioxide 27 (22-29) mmol/L Anion Gap 12 (12-20) BUN 26 H (9-16) mg/dL Creatinine 1.51 H (0.5-1.4) mg/dL Estim Creat Clear Calc 62.9 Estimated GFR 49 POC Glucose (60-115) mg/dL Random Glucose 241 H (60-115) mg/dL Calcium 8.6 D (8.4-10.2) mg/dL Total Bilirubin 0.2 (0.0-1.0) mg/dL AST 15 (5-37) U/L ALT 17 (0-40) U/L Alkaline Phosphatase 116 (39-117) U/L Troponin I High Sens 49.4 H D (<3.5-35.0) ng/L Total Protein 5.5 L (6.5-8.0) g/dL Albumin 2.4 L (3.5-5.0) g/dL 12/26/22 12/27/22 Range/Units 23:57 00:53 WBC (4.8-10.8) X10*3/uL RBC (4.60-5.80) X10*6/uL Hgb (14.0-18.0) g/dl Hct (42.0-52.0) % MCV (80.0-98.0) fL MCH (27.0-33.0) pg MCHC (31.0-36.0) g/dl RDW (11.0-16.0) % Plt Count (160-400) X10*3/uL MPV (9.4-12.4) fL Absolute Nucleated RBC (0.0-0.012) X10*3/uL Nucleated RBC % (auto) (0.0-0.2) /100WBC Sodium (135-145) mmol/L Potassium (3.3-5.1) mmol/L Chloride (96-108) mmol/L Carbon Dioxide (22-29) mmol/L Anion Gap (12-20) BUN (9-16) mg/dL Creatinine (0.5-1.4) mg/dL Estim Creat Clear Calc Estimated GFR POC Glucose 201 H (60-115) mg/dL Random Glucose (60-115) mg/dL Calcium (8.4-10.2) mg/dL Total Bilirubin (0.0-1.0) mg/dL AST (5-37) U/L ALT (0-40) U/L Alkaline Phosphatase (39-117) U/L Troponin I High Sens 50.6 H (<3.5-35.0) ng/L Total Protein (6.5-8.0) g/dL Albumin (3.5-5.0) g/dL Independent Interpretation I performed an independent interpretation of an: EKG Interpretation: Normal sinus rhythm heart rate 96 beats per minute poor progression of R when no acute ST wave changes no acute change in the EKG Discharge Plan Discharge Clinical Impression: Acute bronchitis, Diabetes mellitus, Hypertension Patient Disposition: Home, Self-Care Instructions: Acute Bronchitis (ED), Hypertension (ED), Type 2 Diabetes Management for Adults (ED) Additional Instructions: Take antibiotics and use inhaler as prescribed Control your weight and diet Take blood pressure medication as your blood pressure is also high Drink plenty of fluids Follow up with PCP for further management Check blood sugar daily and start taking glyburide daily Prescriptions: New amlodipine 5 mg tablet 5 mg PO DAILY Qty: 30 3RF cefuroxime axetil 500 mg tablet 500 mg PO BID Qty: 20 0RF albuterol sulfate [ProAir HFA] 90 mcg/actuation HFA aerosol inhaler 2 puff inhalation Q4-6H PRN (Reason: shortness of breath or wheezing) Qty: 8.5 0RF doxycycline hyclate 100 mg tablet 100 mg PO BID Qty: 20 0RF (DME) FreeStyle Lite Strips Strip See Rx Instructions .Route Qty: 50 0RF Rx Instructions: As directed glipizide [Glucotrol XL] 10 mg tablet extended release 24hr 10 mg PO DAILY Qty: 30 2RF No Action (DME) insulin syr/ndl U100 half galen 0.3 mL 31 gauge x 5/16 syringe See Rx Instructions .ROUTE .MEDSUPPLY Qty: 100 0RF Rx Instructions: As directed - covering [place] SIL[place]RE [place] [place] Kerlix 4 1/2 X 147 bandage See Rx Instructions .ROUTE .MEDSUPPLY Qty: 48 1RF Rx Instructions: apply to wound daily (DME) adhesive tape 1 1/2 X 10 -yard tape See Rx Instructions .ROUTE .MEDSUPPLY Qty: 2 1RF Rx Instructions: apply to wound daily (DME) blood sugar diagnostic Strip See Rx Instructions .ROUTE .MEDSUPPLY Qty: 100 0RF Rx Instructions: As directed (DME) blood-glucose meter Kit See Rx Instructions .ROUTE .MEDSUPPLY Qty: 1 0RF Rx Instructions: As directed (DME) FreeStyle Precision Mushtaq Strips Strip See Rx Instructions .ROUTE .MEDSUPPLY Qty: 75 6RF Rx Instructions: As directed three times a day (DME) FreeStyle Swati 14 Day [place] Misc See Rx Instructions .ROUTE .MEDSUPPLY Qty: 1 0RF Rx Instructions: As directed (DME) adhesive tape 2 X 10 -yard tape See Rx Instructions .ROUTE .MEDSUPPLY Qty: 1 0RF Rx Instructions: As directed (DME) gauze bandage [Band-Aid Gauze Pads] 4 X 4 bandage See Rx Instructions .Route Qty: 25 3RF Rx Instructions: As directed (DME) off loading shoe Kit See Rx Instructions .Route Qty: 1 0RF Rx Instructions: As directed (DME) diabetic shoe to be fitted See Rx Instructions .Route .MEDSUPPLY Qty: 1 0RF Rx Instructions: As directed (DME) diabetic shoe inserts to be sized See Rx Instructions .Route .MEDSUPPLY Qty: 1 0RF Rx Instructions: As directed albuterol sulfate [Ventolin HFA] 90 mcg/actuation HFA aerosol inhaler 2 puff inhalation Q4-6H PRN (Reason: shortness of breath or wheezing) Qty: 8.5 1RF ibuprofen 200 mg Tablet 200 mg PO Q6H PRN (Reason: Pain) (DME) pen needle, diabetic [BD Ultra-Fine Nataliya Pen Needle] 32 gauge x 5/32 needle See Rx Instructions .ROUTE .MEDSUPPLY Qty: 50 3RF Rx Instructions: As directed (DME) insulin syringe-needle U-100 0.3 mL 31 gauge x 5/16 syringe See Rx Instructions .ROUTE .MEDSUPPLY Qty: 10 Rx Instructions: As directed (DME) lancets 28 gauge misc See Rx Instructions topical .MEDSUPPLY Qty: 100 Rx Instructions: As directed (DME) calcium alginate See Rx Instructions .Route .MEDSUPPLY Qty: 5 0RF Rx Instructions: As directed - apply to wound bed daily (DME) gauze bandage [Band-Aid Rolled Gauze] 3 X 2.5 -yard bandage See Rx Instructions .Route Qty: 30 1RF Rx Instructions: Apply around foot/wound daily and as needed. (DME) Kerlix 4 X 4 sponge See Rx Instructions .ROUTE .MEDSUPPLY Qty: 4 1RF Rx Instructions: 4 boxes of 4x4 kerlix fluff gauze - apply to wound daily
[2022-12-26 22:08] LABS: Alanine Aminotransferase 17 U/L (0-40); Albumin Level 2.4 g/dL (3.5-5.0); Alkaline Phosphatase 116 U/L (39-117); Anion Gap 12 (12-20); Aspartate Amino Transferase 15 U/L (5-37); Bilirubin Total 0.2 mg/dL (0.0-1.0); Blood Urea Nitrogen 26 mg/dL (9-16); Calcium 8.6 mg/dL (8.4-10.2); Carbon Dioxide 27 mmol/L (22-29); Chloride 108 mmol/L (96-108); Creatinine Clr Calc Pharmacy 62.9; Estimated Glomerular Filt Rate 49; Glucose Random 241 mg/dL (60-115); Potassium 4.3 mmol/L (3.3-5.1); Sodium 143 mmol/L (135-145); Total Protein 5.5 g/dL (6.5-8.0)
[2022-12-26 22:15] LABS: Troponin-I High Sensitivity 49.4 ng/L (<3.5-35.0)
[2022-12-26 22:23] VITALS: BP 166/92; PULSE 98; RESP 17; TEMP 36.7; O2SAT 98
[2022-12-26 22:28] VITALS: PULSE 98; RESP 22; O2SAT 98
[2022-12-26] MEDS: Doxycycline Monohydrate 100 MG CAPSULE PO (23:09)
[2022-12-26 23:47] VITALS: BP 166/105; PULSE 95; RESP 20; O2SAT 96
[2022-12-27 00:25] LABS: Troponin-I High Sensitivity 50.6 ng/L (<3.5-35.0)
[2022-12-27 00:57] LABS: Glucose, Whole Blood 201 mg/dL (60-115)
[2022-12-27] MEDS: Albuterol Sulfate 90 MCG 8 GM INHALER 2 PUFF INHALE (01:15)
[2022-12-27] MEDS: amLODIPine Besylate 5 MG TABLET PO (01:15)
== END 2022-12-27 01:16 | disposition home or self-care (01) ==
PROVIDERS: Emergency Provider Internal Medicine; PCP Internal Medicine
DX: J20.9 Acute bronchitis, unspecified (principal); R07.89 Other chest pain; R06.02 Shortness of breath; E11.9 Type 2 diabetes mellitus without complications; I10 Essential (primary) hypertension; Z79.899 Other long term (current) drug therapy; Z79.4 Long term (current) use of insulin
CPT/HCPCS: 36415; 71045; 80053; 82947; 84484; 85027; 93005; 94640; 99284; 99285

== ENCOUNTER 2023-01-03 11:25 | Inpatient (IN) | payer OTHER, SELFPAY ==
[2023-01-03] VITALS (9 sets, daily range): BP systolic 145–179; BP diastolic 82–101; PULSE 90–107; RESP 16–24; TEMP 36.4–37.9; O2SAT 94–98; BMI 35.6
--- NOTE | ~2023-01-03 | XR_ITS ---
EXAMINATION: XR CHEST CLINICAL INFORMATION: Chest pain and tightness. COMPARISON: 12/26/2022 chest radiograph. TECHNIQUE: 2 views of the chest were obtained. FINDINGS: Mild increased prominence of the pulmonary vasculature is seen with very small bilateral pleural effusions. The heart and mediastinal structures are unchanged. XR/XR chest 2V IMPRESSION: Mild CHF with very small bilateral pleural effusions represents interval worsening.
--- NOTE | 2023-01-03 11:26 | ECG_ITS ---
Test Reason : cp Blood Pressure : / mmHG Vent. Rate : 096 BPM Atrial Rate : 096 BPM P-R Int : 154 ms QRS Dur : 092 ms QT Int : 344 ms P-R-T Axes : 050 014 102 degrees QTc Int : 434 ms Sinus rhythm with Premature atrial complexes Anterior infarct (cited on or before 26-DEC-2022) Abnormal ECG When compared with ECG of 26-DEC-2022 21:38, Premature atrial complexes are now Present Referred By: Vale Bryant Electronically Signed By:Eliezer Rodney
--- NOTE | 2023-01-03 11:27 | ED_ITS ---
HPI - General Adult General Chief complaint: Chest Pain Stated complaint: chest tightness Time Seen by Provider: 01/03/23 13:27 Source: patient Mode of arrival: wheelchair Limitations: no limitations History of Present Illness HPI narrative: Patient comes to the emergency room complaining of chest tightness and shortness of breath for about a week. Patient states that a week ago he was seen here, diagnosed with bronchitis, states that now he is more short of breath than usual. Patient is unable to ambulate, patient has a chronic right BKA. Patient states that even sitting up from bed gets very short of breath. Patient states that he does not think that this is related to asthma since his albuterol inhal er is not working. Patient states that he does not feel that he is wheezing either. Related Data Home Medications Medication Instructions Recorded Confirmed insulin syringe-needle U-100 0.3 #10 ea 06/19/20 10/12/22 mL 31 gauge x 5/16 lancets 28 gauge #100 ea 06/19/20 10/12/22 ibuprofen 200 mg tablet 200 mg PO Q6H PRN Pain 05/28/22 10/12/22 Previous Rx's Medication Instructions Recorded insulin syr/ndl U100 half galen 0.3 #100 ea 05/11/20 mL 31 gauge x 5/16 pen needle, diabetic 32 gauge x #50 ea 05/22/2032 (BD Ultra-Fine Nataliya Pen Needle) adhesive tape 1 1/2 X 10 yard #2 ea 10/22/20 gauze bandage 4 1/2 X 147 #48 ea 10/22/20 (Kerlix) blood sugar diagnostic #100 ea 05/24/21 blood-glucose meter #1 ea 05/24/21 blood sugar diagnostic (FreeStyle #75 ea 05/25/21 Precision Mushtaq Strips) flash glucose scanning reader #1 ea 05/28/21 (FreeStyle Swati 14 Day Eleva) adhesive tape 2 X 10 yard #1 ea 07/21/21 gauze bandage 4 X 4 (Band-Aid #25 ea 07/21/21 Gauze Pads) off loading shoe #1 ea 07/21/21 diabetic shoe #1 ea 03/09/22 diabetic shoe inserts #1 ea 03/09/22 calcium alginate #5 ea 06/09/22 gauze bandage 3 X 2.5 yard #30 ea 06/09/22 (Band-Aid Rolled Gauze) gauze bandage 4 X 4 sponge #4 ea 07/14/22 (Kerlix) albuterol sulfate 90 mcg/actuation 2 puff inhalation Q4-6H PRN 12/20/22 aerosol inhaler (Ventolin HFA) shortness of breath or wheezing #8.5 grams albuterol sulfate 90 mcg/actuation 2 puff inhalation Q4-6H PRN 12/27/22 aerosol inhaler (ProAir HFA) shortness of breath or wheezing #8.5 grams amlodipine 5 mg tablet 5 mg PO DAILY #30 tabs 12/27/22 blood sugar diagnostic (FreeStyle #50 ea 12/27/22 Lite Strips) cefuroxime axetil 500 mg tablet 500 mg PO BID #20 tabs 12/27/22 doxycycline hyclate 100 mg tablet 100 mg PO BID #20 tabs 12/27/22 glipizide 10 mg tablet, extended 10 mg PO DAILY #30 tabs 12/27/22 release 24 hr (Glucotrol XL) Allergies Allergy/AdvReac Type Severity Reaction Status Date / Time gabapentin AdvReac Intermediate nausea, Verified 01/03/23 11:35 dizziness Review of Systems Review of Systems: Constitutional : No Weight loss, No Fever, No Chills, No Night Sweats, No Fatigue, No Malaise ENT/Mouth : No Hearing loss, No Ear Pain, No Nasal Congestion, No Sinus Pain, No Hoarseness, No sore throat, No Rhinorrhea, No Swallowing Difficulty Eyes: No Eye Pain, No Swelling, No Redness, No Foreign Body, No Discharge, No Vision Changes Cardiovascular : No Chest Pain, complaining of chest tightness, lining of dyspnea with exertion, orthopnea, no palpitations Respiratory : No Cough, No Sputum, No Wheezing Gastrointestinal : No Nausea, No Vomiting, No Diarrhea, No Constipation, No abdominal Pain, No Hematochezia, No Melena Genitourinary : no irregular bleeding, No Dysuria, No Urinary Frequency, No Hematuria, No Urinary Incontinence, No Urgency, No Flank Pain, No Urinary Flow Changes, No Hesitancy Musculoskeletal : Chronic right BKA healing well, No Myalgias, No Joint Swelling Skin : No Skin Lesions, No rash Neuro : No Weakness, No Numbness, No Paresthesias, No Loss of Consciousness, No Dizziness, No Headache Psych : No Anxiety/Panic, No Depression, No SI/HI/AH/VH, No Social Issues, Heme/Lymph: No Bruising, No Bleeding,No Lymphadenopathy Endocrine : No Polyuria, No Polydipsia, No Temperature Intolerance [facility] Past Medical History Medical History Asthma Benign essential hypertension Callus under metatarsal head Chronic painful diabetic neuropathy Diabetes mellitus Diabetes mellitus Diabetic foot Diabetic ulcer of foot associated with diabetes mellitus due to underlying condition, with fat layer exposed Dry gangrene Foot abscess, right Gram positive sepsis Hyperlipidemia LDL goal <100 Lumbar degenerative disc disease Neuropathy Obesity Obesity (BMI 30-39.9) Osteomyelitis of ankle or foot, acute Osteomyelitis of left foot Pure hypercholesterolemia Smoker Umbilical hernia Surgical History H/O hernia repair Status post amputation of left great toe Status post debridement Status post incision and drainage Status post incision and drainage Family History Family History Father Medical history unknown Mother Asthma Hypertension Diabetes Brother Chronic mental illness Diabetes Social History Social History Household Members: Significant Other Household Members Other:: girlfriend Housing: Apartment Do you presently have visiting nurse or other home services: No Alcohol intake: former Patient Tobacco Use Status: Current everyday Tobacco user Tobacco use type: Cigarette Cigarette Packs Per Day: 0.5 Cigarettes Per Day: 10 Years Smoked: 30 Smoked in Last 30 Days: Yes Second Hand Smoke Exposure: Yes Use of substances other than those prescribed or required for medical reasons: No Substance Use Type: Marijuana Advance Directives: Yes Advance Directives on File: Yes Advance Directives Date on File: 05/30/20 service: No Current occupational status: employed Physical Exam ED Vital Signs: Vital Signs - 24 hr 01/03/23 11:35 01/03/23 13:06 01/03/23 15:18 Temperature 98 F Pulse Rate 90 97 103 H Respiratory Rate 19 24 H 18 Blood Pressure 149/82 H 154/98 H 154/98 H Pulse Oximetry 95 95 95 Oxygen Delivery Method Room Air Room Air Room Air BMI result Body Mass Index 35.6 Const Other: Appearance: Alert. Oriented X3. No acute distress. Eyes: Pupils equal, round and reactive to light. ENT: Pharynx normal. Neck: Normal inspection. Neck supple. No lymph nodes noted. No crepitus CVS: Normal heart rate and rhythm. Pulses normal. Normal S1 and S2 Respiratory: No respiratory distress. Bilateral crackles, No Wheezing. No rales Abdomen: Soft and nontender. No rigidity. No distention. Skin: Skin warm and dry. Normal skin color. Normal skin turgor. Extremities: No lower extremity edema. No Lacerations. No Rash Neuro: Oriented X 3. No motor deficit. No sensory deficit. Moving all extremities. No slurred speech. CN 2 through 12 grossly intact Psych: calm, cooperative, normal affect Course Course Course Narrative: This is an RME: Additional HPI, ROS, PE not included below will be deferred to primary provider. Patient is a 52-year-old male with history of DM, HTN, HLD, asthma, smoker, right BKA, osteomyelitis presenting to the emergency department with complaint of intermittent chest pain and tightness for one week. Rates pain at 8/10. Chest tightness, non-productive cough, orthopnea. Seen here on 12/26/22 and diagnosed with bronchitis. LS diminished but clear. Plan: EKG, labs, cxr Medications Administered Discontinued Medications Generic Name Dose Route Start Last Admin Trade Name Freq PRN Reason Stop Dose Admin Furosemide 60 mg 01/03/23 13:43 01/03/23 14:09 Furosemide 100 Mg/10 Ml Vial IVPUSH 01/03/23 13:44 60 mg ONCE ONE Administration Protocol Medical Decision Making Medical Decision Making [facility] Narrative: -my interpretation of chest x-ray: CHF, no pneumonia -patient's lactic acid and white blood cell count within normal limits. No fever. Sepsis Is not suspected. -I reviewed patient's medical record, there is no history of CHF -BNP 681, troponin elevated secondary to elevated BNP, no active chest pain at this time -patient given IV Lasix -discussed the patient with Dr. Rossi, patient being admitted Admission/Observation Consideration of admission/observation: Escalation of care including admission/observation considered Consult Healthcare Provider Management of the patient was discussed with: Hospitalist Lab Data [facility] Lab Attestation statement: I reviewed the patient's lab results. 01/03/23 13:00 01/03/23 13:00 Labs: Lab Results 01/03/23 01/03/23 01/03/23 Range/Units 13:00 13:00 13:00 WBC 10.4 (4.8-10.8) X10*3/uL RBC 4.67 (4.60-5.80) X10*6/uL Hgb 11.7 L (14.0-18.0) g/dl Hct 38.4 L (42.0-52.0) % MCV 82.2 (80.0-98.0) fL MCH 25.1 L (27.0-33.0) pg MCHC 30.5 L (31.0-36.0) g/dl RDW 14.1 (11.0-16.0) % Plt Count 328 (160-400) X10*3/uL MPV 11.2 (9.4-12.4) fL Immature Gran % (Auto) 0.3 (0.0-0.4) % Neut % (Auto) 78.1 H (45-73) % Lymph % (Auto) 6.9 L (20-40) % [place] % (Auto) 12.1 H (2-11) % Eos % (Auto) 2.2 (0-4) % Baso % (Auto) 0.4 (0-2) % Lymph # (Auto) 0.7 L (1.2-4.9) X10*3/uL [place] # (Auto) 1.3 H (0.1-1.2) X10*3/uL Eos # (Auto) 0.2 (0.0-0.4) X10*3/uL Baso # (Auto) 0.0 (0.0-0.2) X10*3/uL Abs Immat Gran (auto) 0.03 (0.00-0.03) X10*3/uL Absolute Neuts (auto) 8.1 (2.0-8.3) x10*3/uL Absolute Nucleated RBC 0.000 (0.0-0.012) X10*3/uL Nucleated RBC % (auto) 0.0 (0.0-0.2) /100WBC Sodium 141 (135-145) mmol/L Potassium 4.4 (3.3-5.1) mmol/L Chloride 107 (96-108) mmol/L Carbon Dioxide 23 (22-29) mmol/L Anion Gap 15 (12-20) BUN 21 H (9-16) mg/dL Creatinine 1.49 H (0.5-1.4) mg/dL Estim Creat Clear Calc 66.3 Estimated GFR 50 Random Glucose 233 H (60-115) mg/dL Calcium 9.2 D (8.4-10.2) mg/dL Total Bilirubin 0.4 (0.0-1.0) mg/dL AST 17 (5-37) U/L ALT 17 (0-40) U/L Alkaline Phosphatase 110 (39-117) U/L Troponin I High Sens 143.2 H* D (<3.5-35.0) ng/L B-Natriuretic Peptide (<100) pg/mL Total Protein 6.0 L (6.5-8.0) g/dL Albumin 2.8 L (3.5-5.0) g/dL 01/03/23 Range/Units 13:00 WBC (4.8-10.8) X10*3/uL RBC (4.60-5.80) X10*6/uL Hgb (14.0-18.0) g/dl Hct (42.0-52.0) % MCV (80.0-98.0) fL MCH (27.0-33.0) pg MCHC (31.0-36.0) g/dl RDW (11.0-16.0) % Plt Count (160-400) X10*3/uL MPV (9.4-12.4) fL Immature Gran % (Auto) (0.0-0.4) % Neut % (Auto) (45-73) % Lymph % (Auto) (20-40) % [place] % (Auto) (2-11) % Eos % (Auto) (0-4) % Baso % (Auto) (0-2) % Lymph # (Auto) (1.2-4.9) X10*3/uL [place] # (Auto) (0.1-1.2) X10*3/uL Eos # (Auto) (0.0-0.4) X10*3/uL Baso # (Auto) (0.0-0.2) X10*3/uL Abs Immat Gran (auto) (0.00-0.03) X10*3/uL Absolute Neuts (auto) (2.0-8.3) x10*3/uL Absolute Nucleated RBC (0.0-0.012) X10*3/uL Nucleated RBC % (auto) (0.0-0.2) /100WBC Sodium (135-145) mmol/L Potassium (3.3-5.1) mmol/L Chloride (96-108) mmol/L Carbon Dioxide (22-29) mmol/L Anion Gap (12-20) BUN (9-16) mg/dL Creatinine (0.5-1.4) mg/dL Estim Creat Clear Calc Estimated GFR Random Glucose (60-115) mg/dL Calcium (8.4-10.2) mg/dL Total Bilirubin (0.0-1.0) mg/dL AST (5-37) U/L ALT (0-40) U/L Alkaline Phosphatase (39-117) U/L Troponin I High Sens (<3.5-35.0) ng/L B-Natriuretic Peptide 681 H (<100) pg/mL Total Protein (6.5-8.0) g/dL Albumin (3.5-5.0) g/dL Radiology Impression Discussion of test interpretation with radiology: I have reviewed the radiologist's reading. Radiologist Impression: FINDINGS: Mild increased prominence of the pulmonary vasculature is seen with very small bilateral pleural effusions. The heart and mediastinal structures are unchanged. XR/XR chest 2V IMPRESSION: Mild CHF with very small bilateral pleural effusions represents interval worsening. Critical Care Time Critical Care Time Critical Care Time: Yes Total Critical Care Time: 60 Attestation: I have personally provided critical care time. Time includes review of lab data, radiology results, discussion with consultants, and monitoring for potential decompensation. Intervention performed as documented. Discharge Plan Discharge Clinical Impression: New onset of congestive heart failure Patient Disposition: Admitted As Inpatient Prescriptions: No Action (DME) insulin syr/ndl U100 half galen 0.3 mL 31 gauge x 5/16 syringe See Rx Instructions .ROUTE .MEDSUPPLY Qty: 100 0RF Rx Instructions: As directed - covering for DR. SILVESTRE HILL (DME) Kerlix 4 1/2 X 147 bandage See Rx Instructions .ROUTE .MEDSUPPLY Qty: 48 1RF Rx Instructions: apply to wound daily (DME) adhesive tape 1 1/2 X 10 -yard tape See Rx Instructions .ROUTE .MEDSUPPLY Qty: 2 1RF Rx Instructions: apply to wound daily (DME) blood sugar diagnostic Strip See Rx Instructions .ROUTE .MEDSUPPLY Qty: 100 0RF Rx Instructions: As directed (DME) blood-glucose meter Kit See Rx Instructions .ROUTE .MEDSUPPLY Qty: 1 0RF Rx Instructions: As directed (DME) FreeStyle Precision Mushtaq Strips Strip See Rx Instructions .ROUTE .MEDSUPPLY Qty: 75 6RF Rx Instructions: As directed three times a day (DME) FreeStyle Swati 14 Day Eleva Misc See Rx Instructions .ROUTE .MEDSUPPLY Qty: 1 0RF Rx Instructions: As directed (DME) adhesive tape 2 X 10 -yard tape See Rx Instructions .ROUTE .MEDSUPPLY Qty: 1 0RF Rx Instructions: As directed (DME) gauze bandage [Band-Aid Gauze Pads] 4 X 4 bandage See Rx Instructions .Route Qty: 25 3RF Rx Instructions: As directed (DME) off loading shoe Kit See Rx Instructions .Route Qty: 1 0RF Rx Instructions: As directed (DME) diabetic shoe to be fitted See Rx Instructions .Route .MEDSUPPLY Qty: 1 0RF Rx Instructions: As directed (DME) diabetic shoe inserts to be sized See Rx Instructions .Route .MEDSUPPLY Qty: 1 0RF Rx Instructions: As directed albuterol sulfate [Ventolin HFA] 90 mcg/actuation HFA aerosol inhaler 2 puff inhalation Q4-6H PRN (Reason: shortness of breath or wheezing) Qty: 8.5 1RF ibuprofen 200 mg Tablet 200 mg PO Q6H PRN (Reason: Pain) amlodipine 5 mg tablet 5 mg PO DAILY Qty: 30 3RF cefuroxime axetil 500 mg tablet 500 mg PO BID Qty: 20 0RF albuterol sulfate [ProAir HFA] 90 mcg/actuation HFA aerosol inhaler 2 puff inhalation Q4-6H PRN (Reason: shortness of breath or wheezing) Qty: 8.5 0RF doxycycline hyclate 100 mg tablet 100 mg PO BID Qty: 20 0RF (DME) FreeStyle Lite Strips Strip See Rx Instructions .Route Qty: 50 0RF Rx Instructions: As directed glipizide [Glucotrol XL] 10 mg tablet extended release 24hr 10 mg PO DAILY Qty: 30 2RF (DME) pen needle, diabetic [BD Ultra-Fine Nataliya Pen Needle] 32 gauge x 5/32 needle See Rx Instructions .ROUTE .MEDSUPPLY Qty: 50 3RF Rx Instructions: As directed (DME) insulin syringe-needle U-100 0.3 mL 31 gauge x 5/16 syringe See Rx Instructions .ROUTE .MEDSUPPLY Qty: 10 Rx Instructions: As directed (DME) lancets 28 gauge misc See Rx Instructions topical .MEDSUPPLY Qty: 100 Rx Instructions: As directed (DME) calcium alginate See Rx Instructions .Route .MEDSUPPLY Qty: 5 0RF Rx Instructions: As directed - apply to wound bed daily (DME) gauze bandage [Band-Aid Rolled Gauze] 3 X 2.5 -yard bandage See Rx Instructions .Route Qty: 30 1RF Rx Instructions: Apply around foot/wound daily and as needed. (DME) Kerlix 4 X 4 sponge See Rx Instructions .ROUTE .MEDSUPPLY Qty: 4 1RF Rx Instructions: 4 boxes of 4x4 kerlix fluff gauze - apply to wound daily
[2023-01-03 13:25] LABS: MANUAL DIFF FLAG NO
[2023-01-03 13:29] LABS: Basophils Percent Auto 0.4 % (0-2); Eosinophils Absolute Auto 0.2 X10*3/uL (0.0-0.4); Eosinophils Percent Auto 2.2 % (0-4); Hematocrit 38.4 % (42.0-52.0); Hemoglobin 11.7 g/dl (14.0-18.0); Imm Gran Abs Auto 0.03 X10*3/uL (0.00-0.03); Imm Gran Pct Auto 0.3 % (0.0-0.4); Lymphocytes Absolute Auto 0.7 X10*3/uL (1.2-4.9); Lymphocytes Percent Auto 6.9 % (20-40); Mean Corpuscular HGB Conc 30.5 g/dl (31.0-36.0); Mean Corpuscular Hemoglobin 25.1 pg (27.0-33.0); Mean Corpuscular Volume 82.2 fL (80.0-98.0); Mean Platelet Volume 11.2 fL (9.4-12.4); Monocytes Absolute Auto 1.3 X10*3/uL (0.1-1.2); Monocytes Percent Auto 12.1 % (2-11); Neutrophils Absolute Auto 8.1 x10*3/uL (2.0-8.3); Neutrophils Percent Auto 78.1 % (45-73); Platelet Count 328 X10*3/uL (160-400); Red Blood Count 4.67 X10*6/uL (4.60-5.80); Red Cell Distribution Width 14.1 % (11.0-16.0); White Blood Count 10.4 X10*3/uL (4.8-10.8)
[2023-01-03 13:44] LABS: Alanine Aminotransferase 17 U/L (0-40); Albumin Level 2.8 g/dL (3.5-5.0); Alkaline Phosphatase 110 U/L (39-117); Anion Gap 15 (12-20); Aspartate Amino Transferase 17 U/L (5-37); Bilirubin Total 0.4 mg/dL (0.0-1.0); Blood Urea Nitrogen 21 mg/dL (9-16); Calcium 9.2 mg/dL (8.4-10.2); Carbon Dioxide 23 mmol/L (22-29); Chloride 107 mmol/L (96-108); Creatinine Clr Calc Pharmacy 66.3; Estimated Glomerular Filt Rate 50; Glucose Random 233 mg/dL (60-115); Potassium 4.4 mmol/L (3.3-5.1); Sodium 141 mmol/L (135-145)
[2023-01-03 14:04] LABS: Troponin-I High Sensitivity 143.2 ng/L (<3.5-35.0)
[2023-01-03] MEDS: Furosemide 100 MG/10 ML VIAL 60 MG IVPUSH (14:09)
--- NOTE | 2023-01-03 15:19 | PC.NURSE ---
900mls of clear yellow urine output , reports feeling like he is able to breath better
[2023-01-03 16:15] LABS: B Type Natriuretic Peptide 681 pg/mL (<100)
--- NOTE | 2023-01-03 17:19 | PHA.MEDREC ---
Pharmacy Consult ? Medication Reconciliation Pharmacy has completed the medication reconciliation. Pt states he only uses his inhaler. Asked about the recent fills for glipizide ER 10mg QD and amlodipine 5mg QD but he stated that he has not started those.
--- NOTE | 2023-01-03 17:53 | P.HPHOSP_ITS ---
History of Present Illness Date of Service: 01/03/23 Chief Complaint: shortness of breath 52-year-old gentleman with past medical history significant for diabetes mellitus, hypertension, hyperlipidemia, right BKA, diabetic neuropathy noncompliant with home medication presented to [facility] due to symptoms of c hest tightness that described as localized to mid chest lasting all day and night,and shortness of breath of 2 weeks duration, he mostly complain of shortness of breath with lying flat, associated with anxiety, complaining of fatigue with any activity like pushing wheelchair , he was seen at [facility], 1 week ago and was diagnosed to have bronchitis however patient did not take the medications he was prescribed, he has been using his albuterol inhaler with no relief in symptoms, he has not been checking his blood sugars because he ran out of test strips, he denies associated nausea, vomiting, no abdominal pain, this morning he noted to have a temp of 101 degrees at home, workup in the ED showed a creatinine of 1.49, BNP 681, troponin 143, blood sugars in 200 range, stable hematocrit, no chest x-ray showed mild pulmonary congestion, EKG showed no acute ischemic changes yes, patient treated in the emergency room with 1 dose of IV Lasix 60 mg, and now being admitted to [facility] with further workup and evaluation of orthopnea and chest tightness likely due to CHF.. Review of Systems Review of Systems: General headache, no dizziness no fever chills. CVS chest tightness, no palpitation. Respiratory no cough, no sob Gastrointestinal no nausea, no vomiting, no abdominal pain, no urgency, no frequency all other system reviewed and negative. [facility] Medical History Asthma Benign essential hypertension Callus under metatarsal head Chronic painful diabetic neuropathy Diabetes mellitus Diabetes mellitus Diabetic foot Diabetic ulcer of foot associated with diabetes mellitus due to underlying condition, with fat layer exposed Dry gangrene Foot abscess, right Gram positive sepsis Hyperlipidemia LDL goal <100 Lumbar degenerative disc disease Neuropathy Obesity Obesity (BMI 30-39.9) Osteomyelitis of ankle or foot, acute Osteomyelitis of left foot Pure hypercholesterolemia Smoker Umbilical hernia Family History Father Medical history unknown Mother Asthma Hypertension Diabetes Brother Chronic mental illness Diabetes Surgical History H/O hernia repair Status post amputation of left great toe Status post debridement Status post incision and drainage Status post incision and drainage Social History Household Members: Spouse Household Members Other:: girlfriend Housing: Apartment Do you presently have visiting nurse or other home services: No Alcohol intake: former Patient Tobacco Use Status: Current everyday Tobacco user Tobacco use type: Cigarette Cigarette Packs Per Day: 0.5 Cigarettes Per Day: 10 Years Smoked: 30 Smoked in Last 30 Days: Yes Second Hand Smoke Exposure: Yes Use of substances other than those prescribed or required for medical reasons: No Substance Use Type: Marijuana Currently Displaying Signs/Symptoms of Drug Intoxication Withdrawal: No Advance Directives: Yes Advance Directives on File: Yes Advance Directives Date on File: 05/30/20 Do you have thoughts of harming others: None service: No Current occupational status: employed Meds Allergies Allergy/AdvReac Type Severity Reaction Status Date / Time gabapentin AdvReac Intermediate nausea, Verified 01/03/23 11:35 dizziness Active Medications: Current Medications Acetaminophen (Acetaminophen 325 Mg Tablet) 650 mg PO Q6H PRN PRN Reason: Pain, Mild (Pain Scale 1-3) Albuterol Sulfate (Albuterol Sulfate 90 Mcg 8 Gm Inhaler) 2 puff INHALE Q4H PRN PRN Reason: shortness of breath or wheezing Enoxaparin Sodium (Enoxaparin Sodium 40 Mg/0.4 Ml Syringe) 40 mg SUBCUT DAILY [facility] Melatonin (Melatonin 3 Mg Tablet) 3 mg PO BEDTIME PRN PRN Reason: Insomnia Ondansetron HCl (Ondansetron Hcl 4 Mg/2 Ml Vial) 4 mg IVPUSH Q8H PRN PRN Reason: Nausea and Vomiting Pharmacy Consult (Consult Rx Perform Med Rec) 1 each MISCELLANE ONCE PRN PRN Reason: Consult order Sodium Chloride (0.9 % Sodium Chloride Flush 3 Ml Syringe) 3 ml IVFLUSH QSHIFT SUPRIYA Physical Exam Vital Signs and Narrative: Vital Signs: Last Vital Signs Temp 98 F 01/03/23 11:35 Pulse 99 01/03/23 17:10 Resp 18 01/03/23 17:10 BP 147/87 H 01/03/23 17:10 Pulse Ox 94 06/27/23 17:10 O2 Del Method Room Air 01/03/23 17:10 BMI result Body Mass Index 35.6 Const: Other: General awake alert x3, in no acute distress. Eyes pupil equal round reactive to light and accommodation,EOMI Neck supple no JVD. CVS regular rate rhythm, Respiratory lungs clear to auscultation, no respiratory distress, no wheeze, no rhonchi. Gastrointestinal abdomen soft, nontender, bowel sounds audible, no guarding , no rigidity. Extremities right BKA, left with pitting edema Neuro nonfocal Skin no rash psych appropriate affect Results Labs 01/03/23 13:00 01/03/23 13:00 Labs: Laboratory Results - last 24 hr 01/03/23 01/03/23 01/03/23 13:00 13:00 13:00 MCV 82.2 MCH 25.1 L MCHC 30.5 L RDW 14.1 Plt Count 328 MPV 11.2 Immature Gran % (Auto) 0.3 Neut % (Auto) 78.1 H Lymph % (Auto) 6.9 L [place] % (Auto) 12.1 H Eos % (Auto) 2.2 Baso % (Auto) 0.4 Lymph # (Auto) 0.7 L [place] # (Auto) 1.3 H Eos # (Auto) 0.2 Baso # (Auto) 0.0 Abs Immat Gran (auto) 0.03 Absolute Neuts (auto) 8.1 Absolute Nucleated RBC 0.000 Nucleated RBC % (auto) 0.0 Anion Gap 15 Estim Creat Clear Calc 66.3 Estimated GFR 50 Random Glucose 233 H Calcium 9.2 D Total Bilirubin 0.4 AST 17 ALT 17 Alkaline Phosphatase 110 Troponin I High Sens 143.2 H* D B-Natriuretic Peptide Total Protein 6.0 L Albumin 2.8 L 01/03/23 13:00 MCV MCH MCHC RDW Plt Count MPV Immature Gran % (Auto) Neut % (Auto) Lymph % (Auto) [place] % (Auto) Eos % (Auto) Baso % (Auto) Lymph # (Auto) [place] # (Auto) Eos # (Auto) Baso # (Auto) Abs Immat Gran (auto) Absolute Neuts (auto) Absolute Nucleated RBC Nucleated RBC % (auto) Anion Gap Estim Creat Clear Calc Estimated GFR Random Glucose Calcium Total Bilirubin AST ALT Alkaline Phosphatase Troponin I High Sens B-Natriuretic Peptide 681 H Total Protein Albumin Imaging Radiologist's Impressions: Impressions Chest X-Ray 01/03/23 12:25 IMPRESSION: Mild CHF with very small bilateral pleural effusions represents interval worsening. Assessment and Plan (1) New onset of congestive heart failure: Status: Acute (2) Diabetes mellitus: Status: Acute (3) Status post below knee amputation of right lower extremity: Status: Acute Plan 52-year-old gentleman with past medical history significant for diabetes mellitus, hypertension, hyperlipidemia, right BKA presented to [facility] due to chest tightness and shortness of breath of 2 weeks duration associated with orthopnea, and generalized fatigue patient has not been taking home medications, diagnosed to have congestive heart failure, mild SHI and hyperglycemia. acute CHF with no prior history of heart failure. likely diastolic CHF due to noncompliance with home medications with elevated blood pressures and blood sugars will admit to telemetry, treat with IV Lasix follow BMP,I/Os, daily weight low-salt diet obtain echocardiogram/ cardiology eval elevated troponin with chest tightness, no acute ischemia on EKG, repeat troponin, no chest pain now,,obtain echo, place on aspirin, beta blockers, check lipid profile, need strict blood sugar, blood pressure and cholesterol control. will consider IV heparin if noted to have worsening troponin cardio eval. diabetes mellitus with hyperglycemia not taking home medications, will place on diabetic diet, insulin sliding scale and monitor point of care blood sugar q.i.d., check hemoglobin A1c mild SHI, noted to have a creatinine of 1.5, likely diabetic nephropathy, follow BMP avoid nephrotoxins, Nephro consult hypertension not on home medications started on beta-blockers follow BP mild intermittent asthma stable continue albuterol tobacco use disorder will place on nicotine patch counseling done obesity recommend low-calorie diet and exercise DVT prophylaxis with Lovenox code status full code in my clinical judgment patient will require 2 night inpatient stay for further treatment and monitoring of acute congestive heart failure. Time Spent With Patient Time: Total time managing care of this patient today ____ minutes. Quality Stroke Does the patient have a stroke diagnosis?: No VTE Prior VTE?: No VTE Risk Level:: Medical - moderate - high VTE Device Contraindication: Treatment Not Indicated VTE Drug Contraindication: N/A - Med Ordered
[2023-01-03] MEDS: Aspirin Enteric Coated 81 MG TABLET.DR PO (18:32)
--- NOTE | 2023-01-03 18:34 | PC.NURSE ---
Continues to void large amount of clear yellow urine. vss. reports breathing easier.
[2023-01-03 18:58] LABS: Troponin-I High Sensitivity 139.6 ng/L (<3.5-35.0)
--- NOTE | 2023-01-03 19:14 | PC.NURSE ---
Report given to accepting unit unit, transport aware
--- NOTE | 2023-01-03 20:24 | PC.NURSE ---
pt transferred to floor
[2023-01-03 20:35] LABS: Glucose, Whole Blood 318 mg/dL (60-115)
[2023-01-03] MEDS: Metoprolol Tartrate 25 MG TABLET PO (20:54)
[2023-01-03] MEDS: Insulin Lispro 100 UNIT/ML 3 ML VIAL SUBCUT (20:54)
--- NOTE | 2023-01-03 22:15 | PM.EVENT ---
Event Note Date of Service: 01/03/23 Event Note: Patient with mild fever otherwise stable. No source of infection at this time. Will obtain blood culture and lactic acid. Tylenol p.r.n. for fever treatment. Will hold off starting antibiotics, UA pending Time Spent With Patient Time: Total time managing care of this patient today ____ minutes.
[2023-01-03] MEDS: Acetaminophen 325 MG TABLET 650 MG PO (22:31)
[2023-01-03 23:07] LABS: Lactic Acid 2.4 mmol/L (0.5-2.0)
[2023-01-03 23:49] LABS: Appearance Urine Clear; Color Urine Yellow; Glucose Urine UA 500 mg/dL (Negative); Leukocyte Esterase Urine Negative (Negative); Nitrite Urine Negative (Negative); UMIC TRIGGER UACC YES; Urine Blood Moderate (2+) (Negative); Urine Ketones Negative (Negative); Urine Protein >=1000 (4+) mg/dL (Neg-Trace)
[2023-01-03 23:56] LABS: Bacteria Urine None Seen (None Seen); Hyaline Casts Urine 0-2 /LPF (0-2); Squamous Epithelial Cell Urine 0-2 /HPF (0-2); WBC Urine 0-5 /HPF (0-5)
[2023-01-04 00:43] LABS: Reflex Lactate? Lactic Acid Added
[2023-01-04 03:14] VITALS: BP 134/77; PULSE 87; RESP 18; TEMP 36.3; O2SAT 94
--- NOTE | 2023-01-04 07:00 | CA_ITS ---
Transthoracic Echocardiogram Patient (Last, First, Middle): Declan Bermudez G Gender: Male Date of : 1970 Age: 52 Procedure Date: 01/04/2023 Procedure Type: Transthoracic Echocardiogram Location: [facility] Height: 170.18 cm Weight: 101.61 kg BSA: 2.12 m2 Heart Rate: 86 bpm BP: 134 / 77 mmHg Chemical Operator: NEFTALI Referring MD: Gabriel Rossi MD Symptoms: chf Study Quality: Technically Difficult/Contrast ECG Rhythm: Frequent atrial premature beats Conclusions: - Mildly increased left ventricular cavity size. There is mildly increased left ventricular wall thickness. The left ventricular systolic function is moderately decreased. The visually estimated ejection fraction is between 30-35%. - The basal anterolateral segment is hypokinetic. - The apex, apical anterior, apical inferior, apical lateral, mid anterolateral, and mid inferolateral segments are akinetic. - There is borderline right ventricular systolic function. RV is mild to moderately dilated. - LA is moderate to severely dilated. The right atrium is mildly dilated. - Moderately elevated right atrial pressure. Findings Procedure Information Contrast agent, definity, is being given per protocol without apparent complications. Left Ventricle Mildly increased left ventricular cavity size. There is mildly increased left ventricular wall thickness. The left ventricular systolic function is moderately decreased. The visually estimated ejection fraction is between 30 35%. There is evidence of regional wall motion abnormalities. Abnormal diastolic function is noted. Spectral Doppler is indicative of a restrictive filling pattern. E/E prime ratio is >15, consistent with elevated filling pressures. Wall Motion Rest Echo Findings The basal anterolateral segment is hypokinetic. The apex, apical anterior, apical inferior, apical lateral, mid anterolateral, and mid inferolateral segments are akinetic. Right Ventricle There is borderline right ventricular systolic function. RV is mild to moderately dilated. Atria LA is moderate to severely dilated. The right atrium is mildly dilated. Aortic Valve There is a normal trileaflet aortic valve. There is mild calcification of the aortic valve. There is no aortic valve stenosis. There is no aortic valve regurgitation. Mitral Valve Normal mitral valve structure and function. There is no mitral valve regurgitation. There is no mitral valve stenosis. Pulmonic Valve The pulmonic valve is likely normal. Tricuspid Valve Likely normal tricuspid valve structure and function. Moderately elevated right atrial pressure. There is no evidence of pulmonary hypertension. Great Vessels All visible segments of the aorta are normal in size. Venous The inferior vena cava is normal in size and does not collapse with inspiration. Pericardium/Pleural There is no evidence of pericardial effusion. Prior Study Comparison No prior study available for comparison. Measurements 2D Linear Measurements IVSd: 1.13 0.6-0.9/0.6-1.0 cm LVIDd: 5.84 3.9-5.3/4.2-5.9 cm LVIDd Index: 2.75 2.4-3.2/2.2-3.1 cm/m2 LVIDs: 4.52 2.0-3.6 cm LVPWd: 1.16 0.7-1.1 cm LA Diam: 4.40 2.7-3.8/3.0-4.0 cm LAIDs Index: 2.08 1.5-2.3 cm/m2 LV Mass: 351.72 67-162/88-224 g LV Mass Index: 165.91 43-95/49-115 g/m2 LVOT Diam: 2.30 3.0+(-)1.3 cm 2D Systolic Function EF 4C: 31.30 >55% EF 2C: 41.30 >55% EF BiP: 34.90 >55% Mitral Valve MV Pk E: 1.34 MV PK A: 0.43 MV Decel Time: 153.00 E/A: 3.10 E'Lateral: 4.80 E'Medial: 4.20 E/E' Med: 31.90 E/E' Lat: 27.90 PHT: 45.00 MVA PHT: 4.89 Decel Mckinley: 8.74 Aortic Valve AoV Pk Alberto: 1.39 AoV Mn Alberto: 1.02 AoV VTI: 0.26 AoV Pk Grad: 8.00 Aov Mn Grad: 5.00 ASHLEY Cont.VTI: 3.01 LVOT LVOT Pk Alberto: 1.04 LVOT Mn Alberto: 0.77 LVOT VTI: 0.19 LVOT Pk Grad: 4.00 LVOT Mn Grad: 3.00 LVOT Diam: 2.30 LVOT Area: 4.15 Diastolic Function MV Pk E: 1.34 MV Pk A: 0.43 E/A: 3.10 E'Medial: 4.20 E/E' Med: 31.90 E' Laterial: 4.80 E/E' Lat: 27.90 Right Ventricle TAPSE (mm): 21.40 TVS' Alberto: 9.53 Tricuspid Valve TR Pk Alberto: 2.00 TR Pk Grad: 16.00 RA Press: 8.00 RVSP: 24.00 Great Vessels Aorta Sinus of Valsalva: 3.30 2.0-3.5 cm Ao Asc: 3.20 2.1-3.4 cm Pulmonary Valve PV Pk Alberto: 1.10 Peak PV Grad: 5.00 Updated in Other Vendor System with Status of Final Eliezer Rodney MD electronically signed on 01/04/2023 1:40:05 PM with status of Final
[2023-01-04 07:27] VITALS: BP 137/85; PULSE 95; RESP 20; TEMP 36.7; O2SAT 95
[2023-01-04 07:31] LABS: Anion Gap 8 (12-20); Blood Urea Nitrogen 26 mg/dL (9-16); Calcium 8.4 mg/dL (8.4-10.2); Carbon Dioxide 28 mmol/L (22-29); Chloride 103 mmol/L (96-108); Cholesterol 182 mg/dL; Creatinine Clr Calc Pharmacy 57.1; Estimated Glomerular Filt Rate 42; Glucose Random 227 mg/dL (60-115); HDL Cholesterol 42 mg/dL; LDL Cholesterol Calculated 131 mg/dl; Sodium 135 mmol/L (135-145); Triglycerides 48 mg/dL
[2023-01-04 07:36] LABS: Glucose, Whole Blood 189 mg/dL (60-115)
[2023-01-04] MEDS: Enoxaparin Sodium 40 MG/0.4 ML SYRINGE SUBCUT (07:43)
[2023-01-04] MEDS: Aspirin Enteric Coated 81 MG TABLET.DR PO (07:44)
[2023-01-04] MEDS: Metoprolol Tartrate 25 MG TABLET PO (07:44)
[2023-01-04] MEDS: Insulin Lispro 100 UNIT/ML 3 ML VIAL SUBCUT ×4 (07:44→20:50)
[2023-01-04] MEDS: 0.9 % Sodium Chloride Flush 3 ML SYRINGE IVFLUSH ×3 (07:58→20:53)
--- NOTE | 2023-01-04 08:18 | MHC.CM.PN ---
CM met with Patient and his /HCP at bedside. Patient lives in a house with his and he uses a w/c to assist with mobility. Home/self cares is the goal and CM has initiated and will follow for dc planning. Patient is not covid mitchell'd and his PCP is Dr. Gabe Chisholm.
--- NOTE | 2023-01-04 10:33 | P.CONNP_ITS ---
History of Present Illness Reason for Consult Consult date: 01/05/23 Reason for consult: SHI Chief Complaint Chief complaint: New onset CHF History of Present Illness Narrative: 52-year-old man with a history significant for diabetes mellitus, hypertension, hyperlipidemia, right BKA, diabetic neuropathy? presented to [facility] due to symptoms of chest tightness? that described as localized to mid chest lasting all day and night,and shortness of breath of 2 weeks duration, he mostly complain of shortness of breath with lying flat, associated with anxiety, complaining of fatigue with any activity like pushing wheelchair , he was seen at [facility], 1 week ago and was diagnosed to have bronchitis however patient did not take the medications he was prescribed he has been using his albuterol inhaler with no relief in symptoms, he has not been checking his blood sugars because he ran out of test strips, he denies associated nausea vomiting, no abdominal pain, this morning he noted to have a temp of 101 degrees at home, workup in the ED showed a creatinine of 1.49, BNP 681, troponin 143, blood sugars in 200 range he is stable hematocrit chest x-ray showed mild pulmonary congestion EKG showed no acute ischemic changes patient treated in the emergency room with 1 dose of IV Lasix 60 mg and now being admitted to [facility] with further workup and evaluation of orthopnea and chest tightness likely due to CHF.. Review of Systems Review of Systems No headache. No nausea vomiting. No abdominal pain. Had shortness of breath. No cough. No dysuria urgency or hematuria. No edema. No rash. PMFSH Past Medical History Medical History Asthma Benign essential hypertension Callus under metatarsal head Chronic painful diabetic neuropathy Diabetes mellitus Diabetes mellitus Diabetic foot Diabetic ulcer of foot associated with diabetes mellitus due to underlying condition, with fat layer exposed Dry gangrene Foot abscess, right Gram positive sepsis Hyperlipidemia LDL goal <100 Lumbar degenerative disc disease Neuropathy Obesity Obesity (BMI 30-39.9) Osteomyelitis of ankle or foot, acute Osteomyelitis of left foot Pure hypercholesterolemia Smoker Umbilical hernia Family History Family History Father Medical history unknown Mother Asthma Hypertension Diabetes Brother Chronic mental illness Diabetes Surgical History Surgical History H/O hernia repair Status post amputation of left great toe Status post debridement Status post incision and drainage Status post incision and drainage Social History Social History Household Members: Spouse Household Members Other:: girlfriend Housing: Apartment Do you presently have visiting nurse or other home services: No Alcohol intake: former Patient Tobacco Use Status: Current everyday Tobacco user Tobacco use type: Cigarette Cigarette Packs Per Day: 0.5 Cigarettes Per Day: 10 Years Smoked: 30 Smoked in Last 30 Days: Yes Second Hand Smoke Exposure: Yes Use of substances other than those prescribed or required for medical reasons: No Substance Use Type: Marijuana Currently Displaying Signs/Symptoms of Drug Intoxication Withdrawal: No Advance Directives: Yes Advance Directives on File: Yes Advance Directives Date on File: 05/30/20 Do you have thoughts of harming others: None service: No Current occupational status: employed Meds Allergies Allergy/AdvReac Type Severity Reaction Status Date / Time gabapentin AdvReac Intermediate nausea, Verified 01/03/23 11:35 dizziness Active Medications: Current Medications Acetaminophen (Acetaminophen 325 Mg Tablet) 650 mg PO Q6H PRN PRN Reason: Pain, Mild (Pain Scale 1-3) Last Admin: 01/03/23 22:31 Dose: 650 mg Albuterol Sulfate (Albuterol Sulfate 90 Mcg 8 Gm Inhaler) 2 puff INHALE Q4H PRN PRN Reason: shortness of breath or wheezing Albuterol/Ipratropium (Albuterol/Iprat 2.5/0.5mg 3 Ml Ampul.Neb) 3 ml INHALE RQ4H PRN PRN Reason: Shortness of Breath/Wheezing Aspirin (Aspirin Enteric Coated 81 Mg Tablet.Dr) 81 mg PO DAILY [facility] Last Admin: 01/04/23 07:44 Dose: 81 mg Dextrose (Dextrose 50 % 25 Gm/50 Ml Syringe) 25 gm IVPUSH Q15M PRN; Protocol PRN Reason: per Hypoglycemia Standing Ord. Enoxaparin Sodium (Enoxaparin Sodium 40 Mg/0.4 Ml Syringe) 40 mg SUBCUT DAILY [facility] Last Admin: 01/04/23 07:43 Dose: 40 mg Glucose (Glucose Gel 15 Gm Gel..Gram.) 15 gm PO Q15M PRN; Protocol PRN Reason: per Hypoglycemia Standing Ord. Insulin Human Lispro (Insulin Lispro 100 Unit/Ml 3 Ml Vial) 0 unit SUBCUT QIDACHS [facility]; Protocol Last Admin: 01/04/23 07:44 Dose: 2 unit Melatonin (Melatonin 3 Mg Tablet) 3 mg PO BEDTIME PRN PRN Reason: Insomnia Metoprolol Tartrate (Metoprolol Tartrate 25 Mg Tablet) 25 mg PO BID [facility]; Protocol Last Admin: 01/04/23 07:44 Dose: 25 mg Ondansetron HCl (Ondansetron Hcl 4 Mg/2 Ml Vial) 4 mg IVPUSH Q8H PRN PRN Reason: Nausea and Vomiting Pharmacy Consult (Consult Rx Perform Med Rec) 1 each MISCELLANE ONCE PRN PRN Reason: Consult order Sodium Chloride (0.9 % Sodium Chloride Flush 3 Ml Syringe) 3 ml IVFLUSH QSHIFT [facility] Last Admin: 01/04/23 07:58 Dose: 3 ml Physical Exam Vital Signs: Last Vital Signs Temp 98.1 F 01/04/23 07:27 Pulse 95 01/04/23 07:27 Resp 20 01/04/23 07:27 BP 137/85 01/04/23 07:27 Pulse Ox 95 01/04/23 07:27 O2 Del Method Room Air 01/04/23 07:27 BMI result Body Mass Index 35.6 Comfortable Neck is supple Lung: Air entry equal with scattered crackles Heart: S1,S2, normal. No rub Abd: Soft. BS + NS : Alert.No asterexis Ext: Trace edema of the left leg Right lower extremity amputation Results Lab Results 01/03/23 13:00 01/04/23 06:32 Lab results: Chemistry 01/03/23 01/04/23 13:00 06:32 Sodium 141 135 Potassium 4.4 4.0 Carbon Dioxide 23 28 BUN 21 H 26 H Creatinine 1.49 H 1.73 H Calcium 9.2 D 8.4 D Hematology 01/03/23 13:00 WBC 10.4 Hgb 11.7 L Plt Count 328 Urinalysis 01/03/23 23:15 Urine Color Yellow Urine Appearance Clear Urine pH 6.0 Ur Specific [place] 1.020 Urine Protein >=1000 (4+) H Urine Glucose (UA) 500 H Urine Ketones Negative Urine Blood Moderate (2+) H Urine Nitrite Negative Ur Leukocyte Esterase Negative Urine RBC 6-10 H Urine WBC 0-5 Ur Squamous Epith Cells 0-2 Hyaline Casts 0-2 Assessment and Plan (1) Diabetes mellitus: Status: Acute (2) Benign essential hypertension: Status: Acute (3) CKD (chronic kidney disease) stage 3, GFR 30-59 ml/min: Status: Acute Plan 52-year-old man with a history of diabetes mellitus hypertension for a long time which has been suboptimally controlled. He has underlying chronic kidney disease stage 3 with significant nephrotic range proteinuria most likely due to diabetic nephropathy. The superimposed acute kidney injury most likely due to hypoperfusion in the setting of heart failure. The differential diagnosis certainly include a GN, ain,. No clinical evidence of obstruction. Recommendations. Keep on low-sodium diet. Continue to diurese him. Keep in negative fluid balance of about 1 L per 24 hours. Continue to avoid hypotension and nephrotoxic agents. Optimize blood pressure. Optimize blood sugar Adjust all medications for EGFR about 50 mL/minute Serology ordered for nondiabetic causes. Time Spent With Patient Time: Total time managing care of this patient today ____ minutes. Procedures Date of Service Date of Service: 01/05/23
[2023-01-04 11:06] VITALS: BP 145/85; PULSE 85; RESP 20; TEMP 36.4; O2SAT 97
[2023-01-04 11:28] LABS: Glucose, Whole Blood 273 mg/dL (60-115)
--- NOTE | 2023-01-04 13:00 | P.PNIM_ITS ---
Subjective Subjective Date of Service: 01/04/23 Interval History: feeling better this morning denies shortness of breath, had 1 brief episode of chest pain that resolved without treatment, denies associated diaphoresis, no nausea, no radiation pain, tolerating diet, denies urinary symptoms of urgency frequency, no headache, no dizziness, no acute events overnight. Review of Systems All other system reviewed and negative. Physical Exam Vital Signs: Vital Signs: Last Vital Signs Temp 97.5 F 01/04/23 11:06 Pulse 85 01/04/23 11:06 Resp 20 01/04/23 11:06 BP 145/85 H 01/04/23 11:06 Pulse Ox 97 01/04/23 11:06 O2 Del Method Room Air 01/04/23 11:06 BMI result Body Mass Index 35.6 Const: Other: General? awake alert x3, in no acute distress.? Neck supple no JVD. CVS? regular rate rhythm, Respiratory lungs clear to auscultation, no respiratory distress, no wheeze, no rhonchi. Gastrointestinal abdomen soft, nontender, bowel sounds audible,? no guarding , no rigidity. Extremities? right BKA, left with non pitting edema seems chronic. Neuro nonfocal Skin no rash psych appropriate affect Objective Data Active Medications Acetaminophen (Acetaminophen 325 Mg Tablet) 650 mg PO Q6H PRN PRN Reason: Pain, Mild (Pain Scale 1-3) Last Admin: 01/03/23 22:31 Dose: 650 mg Documented By: MONET Albuterol Sulfate (Albuterol Sulfate 90 Mcg 8 Gm Inhaler) 2 puff INHALE Q4H PRN PRN Reason: shortness of breath or wheezing Albuterol/Ipratropium (Albuterol/Iprat 2.5/0.5mg 3 Ml Ampul.Neb) 3 ml INHALE RQ4H PRN PRN Reason: Shortness of Breath/Wheezing Aspirin (Aspirin Enteric Coated 81 Mg Tablet.) 81 mg PO DAILY [facility] Last Admin: 01/04/23 07:44 Dose: 81 mg Documented By: KAROL Dextrose (Dextrose 50 % 25 Gm/50 Ml Syringe) 25 gm IVPUSH Q15M PRN; Protocol PRN Reason: per Hypoglycemia Standing Ord. Enoxaparin Sodium (Enoxaparin Sodium 40 Mg/0.4 Ml Syringe) 40 mg SUBCUT DAILY [facility] Last Admin: 01/04/23 07:43 Dose: 40 mg Documented By: KAROL Glucose (Glucose Gel 15 Gm Gel..Gram.) 15 gm PO Q15M PRN; Protocol PRN Reason: per Hypoglycemia Standing Ord. Insulin Human Lispro (Insulin Lispro 100 Unit/Ml 3 Ml Vial) 0 unit SUBCUT QIDACHS [facility]; Protocol Last Admin: 01/04/23 11:49 Dose: 6 unit Documented By: KAROL Melatonin (Melatonin 3 Mg Tablet) 3 mg PO BEDTIME PRN PRN Reason: Insomnia Metoprolol Tartrate (Metoprolol Tartrate 25 Mg Tablet) 25 mg PO BID [facility]; [facility] Last Admin: 01/04/23 07:44 Dose: 25 mg Documented By: KAROL Ondansetron HCl (Ondansetron Hcl 4 Mg/2 Ml Vial) 4 mg IVPUSH Q8H PRN PRN Reason: Nausea and Vomiting Pharmacy Consult (Consult Rx Perform Med Rec) 1 each MISCELLANE ONCE PRN PRN Reason: Consult order Sodium Chloride (0.9 % Sodium Chloride Flush 3 Ml Syringe) 3 ml IVFLUSH QSHIFT [facility] Last Admin: 01/04/23 07:58 Dose: 3 ml Documented By: KAROL Labs 01/03/23 13:00 01/04/23 06:32 Labs: Laboratory Results - last 24 hr 01/03/23 01/03/23 01/03/23 13:00 13:00 13:00 MCV 82.2 MCH 25.1 L MCHC 30.5 L RDW 14.1 Plt Count 328 MPV 11.2 Immature Gran % (Auto) 0.3 Neut % (Auto) 78.1 H Lymph % (Auto) 6.9 L [place] % (Auto) 12.1 H Eos % (Auto) 2.2 Baso % (Auto) 0.4 Lymph # (Auto) 0.7 L [place] # (Auto) 1.3 H Eos # (Auto) 0.2 Baso # (Auto) 0.0 Abs Immat Gran (auto) 0.03 Absolute Neuts (auto) 8.1 Absolute Nucleated RBC 0.000 Nucleated RBC % (auto) 0.0 Anion Gap 15 Estim Creat Clear Calc 66.3 Estimated GFR 50 POC Glucose Random Glucose 233 H Lactic Acid Lactic Acid F/U @ 2Hr Calcium 9.2 D Total Bilirubin 0.4 AST 17 ALT 17 Alkaline Phosphatase 110 Troponin I High Sens 143.2 H* D B-Natriuretic Peptide Total Protein 6.0 L Albumin 2.8 L Triglycerides Cholesterol LDL Cholesterol, Calc HDL Cholesterol Urine Color Urine Appearance Urine pH Ur Specific [place] Urine Protein Urine Glucose (UA) Urine Ketones Urine Blood Urine Nitrite Ur Leukocyte Esterase Urine RBC Urine WBC Ur Squamous Epith Cells Urine Bacteria Hyaline Casts 01/03/23 01/03/23 01/03/23 13:00 17:54 20:30 MCV MCH MCHC RDW Plt Count MPV Immature Gran % (Auto) Neut % (Auto) Lymph % (Auto) [place] % (Auto) Eos % (Auto) Baso % (Auto) Lymph # (Auto) [place] # (Auto) Eos # (Auto) Baso # (Auto) Abs Immat Gran (auto) Absolute Neuts (auto) Absolute Nucleated RBC Nucleated RBC % (auto) Anion Gap Estim Creat Clear Calc Estimated GFR POC Glucose 318 H Random Glucose Lactic Acid Lactic Acid F/U @ 2Hr Calcium Total Bilirubin AST ALT Alkaline Phosphatase Troponin I High Sens 139.6 H* B-Natriuretic Peptide 681 H Total Protein Albumin Triglycerides Cholesterol LDL Cholesterol, Calc HDL Cholesterol Urine Color Urine Appearance Urine pH Ur Specific [place] Urine Protein Urine Glucose (UA) Urine Ketones Urine Blood Urine Nitrite Ur Leukocyte Esterase Urine RBC Urine WBC Ur Squamous Epith Cells Urine Bacteria Hyaline Casts 01/03/23 01/03/23 01/04/23 22:39 23:15 06:32 MCV MCH MCHC RDW Plt Count MPV Immature Gran % (Auto) Neut % (Auto) Lymph % (Auto) Kane % (Auto) Eos % (Auto) Baso % (Auto) Lymph # (Auto) [place] # (Auto) Eos # (Auto) Baso # (Auto) Abs Immat Gran (auto) Absolute Neuts (auto) Absolute Nucleated RBC Nucleated RBC % (auto) Anion Gap 8 L Estim Creat Clear Calc 57.1 Estimated GFR 42 POC Glucose Random Glucose 227 H Lactic Acid 2.4 H* Lactic Acid F/U @ 2Hr Calcium 8.4 D Total Bilirubin AST ALT Alkaline Phosphatase Troponin I High Sens B-Natriuretic Peptide Total Protein Albumin Triglycerides 48 Cholesterol 182 LDL Cholesterol, Calc 131 HDL Cholesterol 42 Urine Color Yellow Urine Appearance Clear Urine pH 6.0 Ur Specific [place] 1.020 Urine Protein >=1000 (4+) H Urine Glucose (UA) 500 H Urine Ketones Negative Urine Blood Moderate (2+) H Urine Nitrite Negative Ur Leukocyte Esterase Negative Urine RBC 6-10 H Urine WBC 0-5 Ur Squamous Epith Cells 0-2 Urine Bacteria None Seen Hyaline Casts 0-2 01/04/23 01/04/23 01/04/23 06:32 07:09 11:08 MCV MCH MCHC RDW Plt Count MPV Immature Gran % (Auto) Neut % (Auto) Lymph % (Auto) [place] % (Auto) Eos % (Auto) Baso % (Auto) Lymph # (Auto) [place] # (Auto) Eos # (Auto) Baso # (Auto) Abs Immat Gran (auto) Absolute Neuts (auto) Absolute Nucleated RBC Nucleated RBC % (auto) Anion Gap Estim Creat Clear Calc Estimated GFR POC Glucose 189 H 273 H Random Glucose Lactic Acid Lactic Acid F/U @ 2Hr 1.0 Calcium Total Bilirubin AST ALT Alkaline Phosphatase Troponin I High Sens B-Natriuretic Peptide Total Protein Albumin Triglycerides Cholesterol LDL Cholesterol, Calc HDL Cholesterol Urine Color Urine Appearance Urine pH Ur Specific [place] Urine Protein Urine Glucose (UA) Urine Ketones Urine Blood Urine Nitrite Ur Leukocyte Esterase Urine RBC Urine WBC Ur Squamous Epith Cells Urine Bacteria Hyaline Casts Assessment and Plan (1) New onset of congestive heart failure: Status: Acute (2) Diabetes mellitus: Status: Acute (3) Status post below knee amputation of right lower extremity: Status: Acute (4) Benign essential hypertension: Status: Acute (5) Obesity (BMI 30-39.9): Status: Acute Plan 52-year-old gentleman with past medical history significant for diabetes mellitus, hypertension, hyperlipidemia, right BKA presented to [place] ED due to chest tightness and shortness of breath of 2 weeks duration associated with orthopnea, and generalized fatigue patient has not been taking home medications, diagnosed to have congestive heart failure, mild SHI and hyperglycemia. ? acute CHF with no prior history of heart failure. ? likely? diastolic CHF due to noncompliance with home medications with elevated blood pressures and blood sugars ? appears euvolemic , hold off on further diuresis receive only 1 days of IV Lasix 60 mg in the ED ? > 3 L negative, noted to have bump in creatinine from 1.5-1.73,follow BMP,I/Os, daily weight low-salt diet ? follow echocardiogram/ cardiology eval ? elevated troponin with chest tightness, no acute ischemia on EKG, initial troponin 143 repeat 139 continue aspirin, beta blockers, LDL 131 will add Lipitor ? need strict blood sugar, blood pressure and cholesterol control. ? follow echo and await Cardiology inputl. ?diabetes mellitus with hyperglycemia ?not taking home medications, diabetic diet, insulin sliding scale and monitor point of care blood sugar q.i.d., check hemoglobin A1c not a candidate for metformin with increased lactic acid and SHI ?mild SHI, creatinine bumped from 1.5, to 1.7 likely due to diuresis, likely diabetic nephropathy, follow BMP, avoid nephrotoxins, case discussed with Nephro ?hypertension BP better controlled with metoprolol, follow BP ?mild intermittent asthma? stable continue albuterol ?tobacco use disorder on nicotine patch, counseling done ?obesity recommend low-calorie diet and exercise ?DVT prophylaxis with Lovenox ?code status full code ?in my clinical judgment patient will require continued inpatient stay for further treatment and monitoring of acute congestive heart failure, SHI and elevated troponin awaiting expert opinion. Time Spent With Patient Time: Total time managing care of this patient today ____ minutes. Quality Stroke Does the patient have a stroke diagnosis?: No VTE Prior VTE?: No VTE Risk Level:: Medical - moderate - high VTE Device Contraindication: Treatment Not Indicated VTE Drug Contraindication: N/A - Med Ordered
--- NOTE | 2023-01-04 13:30 | PM.CNCAR ---
History of Present Illness History of Present Illness Date of Service: 01/04/23 Requesting physician: Gabriel Rossi Chief complaint: New onset CHF Narrative: 52-year-old gentleman with history of poorly controlled diabetes, chronic kidney disease, previous right below-knee amputation, toe amputations the left foot, obesity, hypertension and hyperlipidemia who is presenting with shortness of breath. The patient said that he was having some shortness of breath a week ago and presented to [facility] and was thought to have bronchitis. Despite getting treatment he did not improve. He was also experiencing a pressure-like feeling in his chest which was present all the time. He said over the last 3 days this pressure or tightness was present persistently in did not improve until he got some nebulizers. He was also experiencing shortness of breath with activity, orthopnea and PND. Is saying when he tries to lay flat he gets pressure-like feeling in his chest too. He is quite sedentary due to amputation. His high sensitive troponin levels were mildly elevated. EKG showed poor R-wave progression like his old EKG and concern for anterior infarct in the past. [facility] Past Medical History Medical History Asthma Benign essential hypertension Callus under metatarsal head Chronic painful diabetic neuropathy Diabetes mellitus Diabetes mellitus Diabetic foot Diabetic ulcer of foot associated with diabetes mellitus due to underlying condition, with fat layer exposed Dry gangrene Foot abscess, right Gram positive sepsis Hyperlipidemia LDL goal <100 Lumbar degenerative disc disease Neuropathy Obesity Obesity (BMI 30-39.9) Osteomyelitis of ankle or foot, acute Osteomyelitis of left foot Pure hypercholesterolemia Smoker Umbilical hernia Family History Family History Father Medical history unknown Mother Asthma Hypertension Diabetes Brother Chronic mental illness Diabetes Surgical History Surgical History H/O hernia repair Status post amputation of left great toe Status post debridement Status post incision and drainage Status post incision and drainage Social History Social History Household Members: Spouse Household Members Other:: girlfriend Housing: Apartment Do you presently have visiting nurse or other home services: No Alcohol intake: former Patient Tobacco Use Status: Current everyday Tobacco user Tobacco use type: Cigarette Cigarette Packs Per Day: 0.5 Cigarettes Per Day: 10 Years Smoked: 30 Smoked in Last 30 Days: Yes Second Hand Smoke Exposure: Yes Use of substances other than those prescribed or required for medical reasons: No Substance Use Type: Marijuana Currently Displaying Signs/Symptoms of Drug Intoxication Withdrawal: No Advance Directives: Yes Advance Directives on File: Yes Advance Directives Date on File: 05/30/20 Do you have thoughts of harming others: None service: No Current occupational status: employed Meds Allergies Allergy/AdvReac Type Severity Reaction Status Date / Time gabapentin AdvReac Intermediate nausea, Verified 01/03/23 11:35 dizziness Active Medications: Current Medications Acetaminophen (Acetaminophen 325 Mg Tablet) 650 mg PO Q6H PRN PRN Reason: Pain, Mild (Pain Scale 1-3) Last Admin: 01/03/23 22:31 Dose: 650 mg Albuterol Sulfate (Albuterol Sulfate 90 Mcg 8 Gm Inhaler) 2 puff INHALE Q4H PRN PRN Reason: shortness of breath or wheezing Albuterol/Ipratropium (Albuterol/Iprat 2.5/0.5mg 3 Ml Ampul.Neb) 3 ml INHALE RQ4H PRN PRN Reason: Shortness of Breath/Wheezing Aspirin (Aspirin Enteric Coated 81 Mg Tablet.Dr) 81 mg PO DAILY [facility] Last Admin: 01/04/23 07:44 Dose: 81 mg Atorvastatin Calcium (Atorvastatin Calcium 40 Mg Tablet) 40 mg PO BEDTIME [facility] Dextrose (Dextrose 50 % 25 Gm/50 Ml Syringe) 25 gm IVPUSH Q15M PRN; Protocol PRN Reason: per Hypoglycemia Standing Ord. Enoxaparin Sodium (Enoxaparin Sodium 40 Mg/0.4 Ml Syringe) 40 mg SUBCUT DAILY [facility] Last Admin: 01/04/23 07:43 Dose: 40 mg Furosemide (Furosemide 40 Mg/4 Ml Vial) 40 mg IVPUSH BID@0900,1800 [facility]; Protocol Glucose (Glucose Gel 15 Gm Gel..Gram.) 15 gm PO Q15M PRN; Protocol PRN Reason: per Hypoglycemia Standing Ord. Insulin Human Lispro (Insulin Lispro 100 Unit/Ml 3 Ml Vial) 0 unit SUBCUT QIDACHS [facility]; Protocol Last Admin: 01/04/23 11:49 Dose: 6 unit Melatonin (Melatonin 3 Mg Tablet) 3 mg PO BEDTIME PRN PRN Reason: Insomnia Metoprolol Tartrate (Metoprolol Tartrate 25 Mg Tablet) 25 mg PO BID [facility]; Protocol Last Admin: 01/04/23 07:44 Dose: 25 mg Ondansetron HCl (Ondansetron Hcl 4 Mg/2 Ml Vial) 4 mg IVPUSH Q8H PRN PRN Reason: Nausea and Vomiting Pharmacy Consult (Consult Rx Perform Med Rec) 1 each MISCELLANE ONCE PRN PRN Reason: Consult order Sacubitril/Valsartan (Sacubitril/Valsartan 1 Tab Tablet) 1 tab PO BID [facility]; Protocol Sodium Chloride (0.9 % Sodium Chloride Flush 3 Ml Syringe) 3 ml IVFLUSH QSHIFT [facility] Last Admin: 01/04/23 07:58 Dose: 3 ml Physical Exam Vital Signs: Vital Signs: Last Vital Signs Temp 97.5 F 01/04/23 11:06 Pulse 85 01/04/23 11:06 Resp 20 01/04/23 11:06 BP 145/85 H 01/04/23 11:06 Pulse Ox 97 01/04/23 11:06 O2 Del Method Room Air 01/04/23 11:06 BMI result Body Mass Index 35.6 GENERAL APPEARANCE: in no acute distress, pleasant. NECK: no carotid bruit, + jugular venous distention. SKIN: no suspicious lesions, warm and dry. HEART: no murmurs, regular rate and rhythm. LUNGS: Crackles at bases. ABDOMEN: soft, nontender. EXTREMITIES: 2+ edema to the knee on left leg, right below-knee amputation. PERIPHERAL PULSES: equal. NEUROLOGIC: No gross deficits, AAO X 3 Objective Labs and Meds 01/03/23 13:00 01/04/23 06:32 Lab results: Laboratory Results - last 24 hr 01/03/23 01/03/23 01/03/23 13:00 13:00 13:00 Sodium 141 Potassium 4.4 Chloride 107 Carbon Dioxide 23 Anion Gap 15 BUN 21 H Creatinine 1.49 H Estim Creat Clear Calc 66.3 Estimated GFR 50 POC Glucose Random Glucose 233 H Lactic Acid Lactic Acid F/U @ 2Hr Calcium 9.2 D Total Bilirubin 0.4 AST 17 ALT 17 Alkaline Phosphatase 110 Troponin I High Sens 143.2 H* D B-Natriuretic Peptide 681 H Total Protein 6.0 L Albumin 2.8 L Triglycerides Cholesterol LDL Cholesterol, Calc HDL Cholesterol Urine Color Urine Appearance Urine pH Ur Specific Clark Urine Protein Urine Glucose (UA) Urine Ketones Urine Blood Urine Nitrite Ur Leukocyte Esterase Urine RBC Urine WBC Ur Squamous Epith Cells Urine Bacteria Hyaline Casts 01/03/23 01/03/23 01/03/23 17:54 20:30 22:39 Sodium Potassium Chloride Carbon Dioxide Anion Gap BUN Creatinine Estim Creat Clear Calc Estimated GFR POC Glucose 318 H Random Glucose Lactic Acid 2.4 H* Lactic Acid F/U @ 2Hr Calcium Total Bilirubin AST ALT Alkaline Phosphatase Troponin I High Sens 139.6 H* B-Natriuretic Peptide Total Protein Albumin Triglycerides Cholesterol LDL Cholesterol, Calc HDL Cholesterol Urine Color Urine Appearance Urine pH Ur Specific Clark Urine Protein Urine Glucose (UA) Urine Ketones Urine Blood Urine Nitrite Ur Leukocyte Esterase Urine RBC Urine WBC Ur Squamous Epith Cells Urine Bacteria Hyaline Casts 01/03/23 01/04/23 01/04/23 23:15 06:32 06:32 Sodium 135 Potassium 4.0 Chloride 103 Carbon Dioxide 28 Anion Gap 8 L BUN 26 H Creatinine 1.73 H Estim Creat Clear Calc 57.1 Estimated GFR 42 POC Glucose Random Glucose 227 H Lactic Acid Lactic Acid F/U @ 2Hr 1.0 Calcium 8.4 D Total Bilirubin AST ALT Alkaline Phosphatase Troponin I High Sens B-Natriuretic Peptide Total Protein Albumin Triglycerides 48 Cholesterol 182 LDL Cholesterol, Calc 131 HDL Cholesterol 42 Urine Color Yellow Urine Appearance Clear Urine pH 6.0 Ur Specific Clark 1.020 Urine Protein >=1000 (4+) H Urine Glucose (UA) 500 H Urine Ketones Negative Urine Blood Moderate (2+) H Urine Nitrite Negative Ur Leukocyte Esterase Negative Urine RBC 6-10 H Urine WBC 0-5 Ur Squamous Epith Cells 0-2 Urine Bacteria None Seen Hyaline Casts 0-2 01/04/23 01/04/23 07:09 11:08 Sodium Potassium Chloride Carbon Dioxide Anion Gap BUN Creatinine Estim Creat Clear Calc Estimated GFR POC Glucose 189 H 273 H Random Glucose Lactic Acid Lactic Acid F/U @ 2Hr Calcium Total Bilirubin AST ALT Alkaline Phosphatase Troponin I High Sens B-Natriuretic Peptide Total Protein Albumin Triglycerides Cholesterol LDL Cholesterol, Calc HDL Cholesterol Urine Color Urine Appearance Urine pH Ur Specific Clark Urine Protein Urine Glucose (UA) Urine Ketones Urine Blood Urine Nitrite Ur Leukocyte Esterase Urine RBC Urine WBC Ur Squamous Epith Cells Urine Bacteria Hyaline Casts Imaging Radiologist's impression: Impressions Chest X-Ray 01/03/23 12:25 IMPRESSION: Mild CHF with very small bilateral pleural effusions represents interval worsening. Assessment and Plan (1) New onset of congestive heart failure: Status: Acute (2) CKD (chronic kidney disease) stage 3, GFR 30-59 ml/min: Status: Acute (3) Cardiomyopathy: Status: Acute Plan 52 year gentleman who is presenting with shortness of breath and chest discomfort. The chest discomfort is quite atypical and persistently present for days. This got better with nebulizers and I think this is related to underlying COPD/asthma. He has mildly elevated troponin levels and has new onset congestive heart failure. EKGs showing poor R-wave progression and concern for old anterior infarct and changes are similar to his old EKG. Echocardiography is showing LAD territory wall motion abnormality with EF of 30 35%. He is clinically overloaded and in heart failure right now. Lasix 40 mg IV b.i.d.. Adding Entresto. Stop the metoprolol for now because he may not tolerate it because of elevated filling pressures. I think his presentation is not ACS but probably he had LAD occlusion in the past and now developing heart failure. As he improves he will need ischemic evaluation and depending on his kidney function we may have to decide whether he can tolerate diagnostic angiography currently or should be pursue nuclear perfusion imaging. I have explained to him that most of his problems stem from uncontrolled diabetes and he should seriously think about seeking treatment. Agree with baby aspirin and statin. Thank you for allowing me to participate in the care of your patient. Please feel free to contact me if you have any questions. Time Spent With Patient Time: Total time managing care of this patient today ____ minutes. Procedures Date of Service Date of Service: 01/04/23
[2023-01-04] MEDS: Sacubitril/Valsartan 24/26 1 TAB TABLET PO ×2 (13:53→20:50)
[2023-01-04] MEDS: Furosemide 40 MG/4 ML VIAL IVPUSH ×2 (13:53→16:54)
[2023-01-04 14:51] VITALS: BP 140/90; PULSE 90; RESP 19; TEMP 37.1; O2SAT 97
--- NOTE | 2023-01-04 15:16 | P.CDIM_ITS ---
PROVIDER RESPONSE TEXT: To clarify, the appropriate diagnosis supported by the clinical indicators: Diabetic mellitus with peripheral neuropathy QUERY TEXT: PHYSICIAN'S DOCUMENTATION REQUEST Date of Query: 01/04/2023 11:54 AM EDT Patient Name: Declan Bermudez Admit Date: 01/03/2023 Dear Gabriel Rossi, A review of the medical record indicates additional documentation may be needed. Please review below and update the documentation accordingly. Clinical Indicators: H&P - past medical history of diabetes mellitus, right BKA and diabetic neuropathy PMH: Chronic painful diabetic neuropathy Allergic to gabapentin Please clarify the following regarding the Complications of Diabetes Mellitus (DM): Diabetic mellitus with peripheral neuropathy Diabetes mellitus with polyneuropathy Diabetes mellitus with autonomic neuropathy Other Other (explain)Clinically unable to determine (explain)Thank you, Lorena Harvey, CCS, CDIS Use of terms such as suspected, likely, concern for, or probable (associated with a specific diagnosi s that is being evaluated, monitored, or treated as if it exists) are acceptable and can be coded in the inpatient se tting, when documented at the time of discharge. Please use your independent medical judgment in providing your response. THIS QUERY IS PART OF THE PERMANENT MEDICAL RECORD
[2023-01-04 16:46] LABS: Glucose, Whole Blood 247 mg/dL (60-115)
[2023-01-04 18:44] VITALS: BP 142/82; PULSE 89; RESP 18; TEMP 36.7; O2SAT 95
[2023-01-04 19:34] LABS: Glucose, Whole Blood 252 mg/dL (60-115)
[2023-01-04] MEDS: Atorvastatin Calcium 40 MG TABLET PO (20:50)
[2023-01-04 23:40] VITALS: BP 148/71; PULSE 74; RESP 18; TEMP 36.8; O2SAT 95
[2023-01-05 04:00] VITALS: BP 139/87; PULSE 79; RESP 20; TEMP 37; O2SAT 95
[2023-01-05 07:00] LABS: Anion Gap 12 (12-20); Blood Urea Nitrogen 27 mg/dL (9-16); Calcium 8.5 mg/dL (8.4-10.2); Carbon Dioxide 29 mmol/L (22-29); Chloride 104 mmol/L (96-108); Creatinine Clr Calc Pharmacy 59.1; Estimated Glomerular Filt Rate 43; Glucose Random 297 mg/dL (60-115); Sodium 141 mmol/L (135-145)
[2023-01-05 07:34] LABS: Glucose, Whole Blood 293 mg/dL (60-115)
[2023-01-05 07:46] VITALS: BP 136/77; PULSE 80; RESP 16; TEMP 36.6; O2SAT 95
[2023-01-05] MEDS: Furosemide 40 MG/4 ML VIAL IVPUSH (08:11)
[2023-01-05] MEDS: Insulin Lispro 100 UNIT/ML 3 ML VIAL SUBCUT (08:11)
[2023-01-05] MEDS: Sacubitril/Valsartan 24/26 1 TAB TABLET PO (08:11)
[2023-01-05] MEDS: Enoxaparin Sodium 40 MG/0.4 ML SYRINGE SUBCUT (08:11)
[2023-01-05] MEDS: Aspirin Enteric Coated 81 MG TABLET.DR PO (08:11)
[2023-01-05] MEDS: 0.9 % Sodium Chloride Flush 3 ML SYRINGE IVFLUSH (08:12)
--- NOTE | 2023-01-05 08:45 | P.PNCA_ITS ---
Subjective Subjective Date of Service: 01/05/23 Interval history: Seen examined at bedside. Clinically improving. Still volume overloaded. He was able to lay flat overnight and did not have any orthopnea. Creatinine stable. Echocardiography reviewed with the patient and it showed moderate LV dysfunction with LAD territory wall motion abnormality. Physical Exam Vital Signs: Last Vital Signs Temp 97.8 F 01/05/23 07:46 Pulse 80 01/05/23 07:46 Resp 16 01/05/23 07:46 BP 136/77 01/05/23 07:46 Pulse Ox 95 01/05/23 07:46 O2 Del Method Room Air 01/05/23 07:46 BMI result Body Mass Index 35.6 GENERAL APPEARANCE: in no acute distress, pleasant. NECK: no carotid bruit, + jugular venous distention. SKIN: no suspicious lesions, warm and dry. HEART: no murmurs, regular rate and rhythm. LUNGS: Clear to auscultation. ABDOMEN: soft, nontender. EXTREMITIES: 1+ edema to the knee on left leg, right below-knee amputation. PERIPHERAL PULSES: equal. NEUROLOGIC: No gross deficits, AAO X 3 Objective Labs and Meds 01/03/23 13:00 01/05/23 06:15 Lab results: Laboratory Results - last 24 hr 01/04/23 01/04/23 01/04/23 11:08 16:36 18:48 Sodium Potassium Chloride Carbon Dioxide Anion Gap BUN Creatinine Estim Creat Clear Calc Estimated GFR POC Glucose 273 H 247 H 252 H Random Glucose Calcium 01/05/23 01/05/23 06:15 07:09 Sodium 141 Potassium 4.0 Chloride 104 Carbon Dioxide 29 Anion Gap 12 BUN 27 H Creatinine 1.67 H Estim Creat Clear Calc 59.1 Estimated GFR 43 POC Glucose 293 H Random Glucose 297 H Calcium 8.5 Progress Note: A&P Assessment and plan (1) Cardiomyopathy: Status: Acute (2) CKD (chronic kidney disease) stage 3, GFR 30-59 ml/min: Status: Acute (3) New onset of congestive heart failure: Status: Acute Plan 52-year-old gentleman who has background of diabetes and previous right below- knee amputation and chronic kidney disease who presented with congestive heart failure. He has chest tightness which was persistent for days and he had mildly elevated troponin levels. Reviewing his recent ECGs he had poor R-wave progression and changes were consistent anterior wall FL in the recent past. His echocardiography is showing LAD territory wall motion with apical akinesis but it does not appear to be dyskinetic or aneurysmal. He has no symptoms right now. He has been diuresed and is improving. We started him on Entresto and I t hink his Lasix can be decreased to 40 mg once a day IV. I had a detailed discussion with the patient that we need to understand his coronary anatomy because clearly he has ischemic cardiomyopathy at this point. He is agreeable and will going to transfer him to [facility] for diagnostic angiography tomorrow morning. Will keep him NPO after midnight. Continue same medications. Thank you for allowing me to participate in the care of your patient. Please feel free to contact me if you have any questions. Time Spent With Patient Time: Total time managing care of this patient today ____ minutes. Progress Note: Quality Stroke Does the patient have a stroke diagnosis?: No Procedures Date of Service Date of Service: 01/05/23
--- NOTE | 2023-01-05 10:01 | P.PNNP_ITS ---
Subjective Subjective Date of Service: 01/05/23 Interval history: feeling better this morning denies shortness of breath, had 1 brief episode of chest pain that resolved without treatment, denies associated diaphoresis, no nausea, no radiation pain, tolerating diet, denies urinary symptoms of urgency frequency, no headache, no dizziness, no acute events overnight. Physical Exam Vital Signs: Vital Signs: Last Vital Signs Temp 97.8 F 01/05/23 07:46 Pulse 80 01/05/23 07:46 Resp 16 01/05/23 07:46 BP 136/77 01/05/23 07:46 Pulse Ox 95 01/05/23 07:46 O2 Del Method Room Air 01/05/23 07:46 BMI result Body Mass Index 35.6 Const: Other: General? awake alert x3, in no acute distress.? Neck supple no JVD. CVS? regular rate rhythm, Respiratory lungs clear to auscultation, no respiratory distress, no wheeze, no rhonchi. Gastrointestinal abdomen soft, nontender, bowel sounds audible,? no guarding , no rigidity. Extremities? right BKA, left with non pitting edema seems chronic. Neuro nonfocal Skin no rash psych appropriate affect Objective Data Labs 01/03/23 13:00 01/05/23 06:15 Labs: Laboratory Results - last 24 hr 01/04/23 01/04/23 01/04/23 11:08 16:36 18:48 Sodium Potassium Chloride Carbon Dioxide Anion Gap BUN Creatinine Estim Creat Clear Calc Estimated GFR POC Glucose 273 H 247 H 252 H Random Glucose Calcium 01/05/23 01/05/23 06:15 07:09 Sodium 141 Potassium 4.0 Chloride 104 Carbon Dioxide 29 Anion Gap 12 BUN 27 H Creatinine 1.67 H Estim Creat Clear Calc 59.1 Estimated GFR 43 POC Glucose 293 H Random Glucose 297 H Calcium 8.5 Microbiology Microbiology Results: Microbiology 01/03/23 22:39 Blood - Venous Blood Culture - Preliminary No growth after 24 hours. 01/03/23 22:39 Blood - Venous Blood Culture - Preliminary No growth after 24 hours. Procedures Date of Service Date of Service: 01/05/23 Assessment & Plan Assessment and plan (1) Diabetes mellitus: Status: Acute (2) Benign essential hypertension: Status: Acute (3) CKD (chronic kidney disease) stage 3, GFR 30-59 ml/min: Status: Acute Plan 52-year-old man with a history of diabetes mellitus hypertension for a long time which has been suboptimally controlled. He has underlying chronic kidney disease stage 3 with significant nephrotic range proteinuria most likely due to diabetic nephropathy. The superimposed acute kidney injury most likely due to hypoperfusion in the setting of heart failure. The differential diagnosis certainly include a GN, ain,. No clinical evidence o f obstruction. Recommendations. Keep on low-sodium diet. Continue to diurese him. Keep in negative fluid balance of about 1 L per 24 hours. Continue to avoid hypotension and nephrotoxic agents. Optimize blood pressure. Optimize blood sugar Adjust all medications for EGFR about 50 mL/minute Time Spent With Patient Time: Total time managing care of this patient today ____ minutes. Progress Note: Quality Stroke Does the patient have a stroke diagnosis?: No
--- NOTE | 2023-01-05 10:13 | MHC.CM.PN ---
Per ROUNDS discussion, Patient will be dc/transferred to [facility] for a Cardiac Cath.
--- NOTE | 2023-01-05 10:21 | PM.DS ---
DS: Providers Provider Date of Service: 01/05/23 Date of admission: 01/03/23 17:47 Date of discharge: 01/05/23 Primary care physician: Gabe Chisholm MD Consults: 01/03/23 17:51 Consult to Cardiology Routine Consulting Provider: Eliezer Rodney Reason for consultation: chf Has provider been notified: No 01/04/23 07:43 Consult to Nephrology Routine Consulting Provider: Vicente Jack Reason for consultation: shi Attending physician on discharge: Atif Robins Discharging clinician: Gunjan Rose DS: Diagnosis Discharge Diagnosis (1) Cardiomyopathy: Status: Acute (2) CKD (chronic kidney disease) stage 3, GFR 30-59 ml/min: Status: Acute (3) New onset of congestive heart failure: Status: Acute DS: Summary Hospital Course Hospital Course: From H&P on day of admission 52-year-old gentleman with past medical history significant for diabetes mellitus, hypertension, hyperlipidemia, right BKA, diabetic neuropathy? noncompliant with home medication presented to [place] [facility] due to symptoms of chest tightness? that described as localized to mid chest lasting all day and night,and shortness of breath of 2 weeks duration, he mostly complain of shortness of breath with lying flat, associated with anxiety, complaining of fatigue with any activity like pushing wheelchair , he was seen at [facility], 1 week ago and was diagnosed to have bronchitis however patient did not take the medications he was prescribed, he has been using his albuterol inhaler with no relief in symptoms, he has not been checking his blood sugars because he ran out of test strips, he denies associated nausea, vomiting, no abdominal pain, this morning he noted to have a temp of 101 degrees at home, workup in the ED showed a creatinine of 1.49, BNP 681, troponin 143, blood sugars in 200 range, stable hematocrit, no chest x-ray showed mild pulmonary congestion, EKG showed no acute ischemic changes yes, patient treated in the emergency room with 1 dose of IV Lasix 60 mg, and now being admitted to [facility] with further workup and evaluation of orthopnea and chest tightness likely due to CHF. acute CHF with no prior history of heart failure. started on IV lasix with good effect. decrease Lasix to 40 IV daily. Echocardiogram obtained showing estimated ejection fraction of 30-35% with basal anterolateral hypokinesis. Seen in consultation by Cardiology and started on Entresto, statin, aspirin. Recommended to hold off on beta-moriah at this time. Plan to transfer to [facility] for cardiac catheterization. elevated troponin/chest pain initial Hs troponin 143 repeat 139. continue aspirin LDL 131, Lipitor added. Echocardiogram showing LAD territory wall motion with apical hypokinesis as above. concern for ischemic cardiomyopathy. Plan to transfer to [facility] for cardiac catheterization. diabetes mellitus with hyperglycemia not taking home medications. was started on insulin sliding scale to monitor insulin needs with point of care blood sugar q.i.d., Hb A1c pending at the time of discharge 05/2022 a1c was 10.0. not a candidate for metformin with increased lactic acid and SHI SHI on CKD3. Most likely secondary to diabetic nephropathy. SHI likely secondary to hypoperfusion in the setting of acute heart failure. monitor renal function closely. creatinine 1.67 today, stable, 1.79 on 01/04. nephrology following during hospitalization Time Spent with Patient Time attestation: Total time managing care of this patient today ____ minutes. Discharge coordination time: Greater than 30 minutes Quality: Safe Use of Opioids Does Pt have an Active Cancer Diagnosis on the Problem List?: No Quality: Stroke Does the patient have a stroke diagnosis?: No Physical Exam Vital Signs: Vital Signs: Last Vital Signs Temp 97.8 F 01/05/23 07:46 Pulse 80 01/05/23 07:46 Resp 16 01/05/23 07:46 BP 136/77 01/05/23 07:46 Pulse Ox 95 01/05/23 07:46 O2 Del Method Room Air 01/05/23 07:46 BMI result Body Mass Index 35.6 Const: General: cooperative, comfortable, no acute distress, alert and awake Nutritional Appearance: overweight Orientation/consciousness: patient oriented x3 Resp: Effort & Inspection: normal respiratory effort, able to speak in complete sentences, no respiratory distress and no use of accessory muscles Cardio: Rate: regular rate Heart sounds: S1 normal heart sound present and S2 normal heart sound present GI: Inspection: No distended Palpation (GI): Soft to palpation and nontender Neuro: General: patient oriented x3, moves all extremities and CN's II-XI intact bilaterally Extrem: Other: s/p right BKA. LLE with non pitting leg edema DS: Data Data Completed and Pending Completed studies during hospitalization [Text1]: Procedures Detachment at Left 1st Toe, Complete, Open Approach (08/12/20) Detachment at Left 2nd Toe, Complete, Open Approach (08/12/20) Detachment at Right Lower Leg, Mid, Open Approach (06/27/22) Excision of Left Foot Subcutaneous Tissue and Fascia, Open Approach (05/26/20) Excision of Right Foot Subcutaneous Tissue and Fascia, Open Approach (06/27/22) Extraction of Left Foot Skin, External Approach (05/05/20) Insertion of Infusion Device into Superior Vena Cava, Percutaneous Approach (05/05/20) Introduction of Anesthetic Agent into Peripheral Nerves and Plexi, Percutaneous Approach (06/27/22) Ultrasonography of Superior Vena Cava, Guidance (05/05/20) Labs on day of discharge: Laboratory Results - last 24 hr 01/04/23 01/04/23 01/04/23 11:08 16:36 18:48 Sodium Potassium Chloride Carbon Dioxide Anion Gap BUN Creatinine Estim Creat Clear Calc Estimated GFR POC Glucose 273 H 247 H 252 H Random Glucose Calcium 01/05/23 01/05/23 06:15 07:09 Sodium 141 Potassium 4.0 Chloride 104 Carbon Dioxide 29 Anion Gap 12 BUN 27 H Creatinine 1.67 H Estim Creat Clear Calc 59.1 Estimated GFR 43 POC Glucose 293 H Random Glucose 297 H Calcium 8.5 Preliminary micro results at discharge 01/03/23 22:39 Blood Culture - Preliminary Blood - Venous No growth after 24 hours. 01/03/23 22:39 Blood Culture - Preliminary Blood - Venous No growth after 24 hours. Imaging echo: Radiologist's impression: ITS Impressions Chest X-Ray 01/03/23 12:25 IMPRESSION: Mild CHF with very small bilateral pleural effusions represents interval worsening. Discharge Plan Discharge Anticipated Discharge Date/Time: 01/05/23 09:46 Patient Disposition: er Acute Care Hospital Discharge Diagnosis: chest pain cardiomyopathy uncontrolled DM Referrals: [facility] [Outside] - 1 Week Gabe Chisholm MD [Primary Care Provider] - 1 Week Discharge Medications: New atorvastatin 40 mg Tablet 40 mg PO BEDTIME Qty: 1 0RF Entresto 24-26 mg Tablet 1 tab PO BID Qty: 1 0RF Protocol: Hold for SBP< HOLD for SBP < : 90 furosemide 10 mg/mL Solution 40 mg IVPUSH DAILY Qty: 40 0RF Protocol: Hold for SBP< HOLD for SBP < : 90 aspirin 81 mg Tablet,Delayed Release (Dr/Ec) 81 mg PO DAILY Qty: 1 0RF insulin lispro [Humalog U-100 Insulin] 100 unit/mL Solution See Protocol subcut QIDACHS Qty: 10 0RF Protocol: Insulin Correction Scale Less than or equal to 110 ---- Give (units): 0 111 to 150 Give (units): 0 151 to 200 Give (units): 2 201 to 250 Give (units): 4 251 to 300 Give (units): 6 301 to 350 Give (units): 8 Greater than 350 Give (units): 10 Call MD if Blood Glucose > : 350 Continued albuterol sulfate [Ventolin HFA] 90 mcg/actuation HFA aerosol inhaler 2 puff inhalation Q4-6H PRN (Reason: shortness of breath or wheezing) Qty: 8.5 1RF Discharge Orders: Discharge Order (Routine); Ordered 01/05/23 Ordered By: Gunjan Rose Activity on Discharge: As tolerated Stand Alone Forms: Patient Portal Discharge page Care Plan Goals: see below Health Concerns: chest pain cardiomyopathy uncontrolled DM CKD new CHF Plan of Treatment: New cardiomyopathy, being diuresed, decreased to lasix 40 IV daily. started on Entresto, statin, aspirin. no Beta-moriah for now transfer to [facility] for cardiac catheterization on 01/06. NPO at midnight 01/05 Assessment: see discharge summary
[2023-01-05 11:00] LABS: Estimated Average Glucose 243 mg/dL; Hemoglobin A1c % 10.1 %
[2023-01-05 11:04] VITALS: BP 129/81; PULSE 81; RESP 20; TEMP 36.1; O2SAT 94
[2023-01-05 11:30] LABS: Glucose, Whole Blood 236 mg/dL (60-115)
== END 2023-01-05 12:01 | disposition short-term general hospital (02) | DRG 194 ==
LOC: HO.ED 17:10 → HO.EDOVER 17:57 → HO.IMC 18:23
PROVIDERS: Internal Medicine; Registered Nurse Emergency; Admitting Provider Hospitalist; Emergency Provider Emergency Medicine; PCP Internal Medicine; Visit Provider Physician Assistant Medical
DX: I13.0 Hypertensive heart and chronic kidney disease with heart failure and stage 1 through stage 4 chronic kidney disease, or unspecified chronic kidney disease (principal); N17.9 Acute kidney failure, unspecified; I42.9 Cardiomyopathy, unspecified; E11.22 Type 2 diabetes mellitus with diabetic chronic kidney disease; E11.65 Type 2 diabetes mellitus with hyperglycemia; E66.9 Obesity, unspecified; N18.30 Chronic kidney disease, stage 3 unspecified; I50.9 Heart failure, unspecified; J45.20 Mild intermittent asthma, uncomplicated; E11.42 Type 2 diabetes mellitus with diabetic polyneuropathy; Z68.35 Body mass index [BMI] 35.0-35.9, adult; E78.00 Pure hypercholesterolemia, unspecified; Z89.511 Acquired absence of right leg below knee; Z91.148 Patient's other noncompliance with medication regimen for other reason; F17.210 Nicotine dependence, cigarettes, uncomplicated; Z71.6 Tobacco abuse counseling; Z79.4 Long term (current) use of insulin; Z79.82 Long term (current) use of aspirin; Z79.899 Other long term (current) drug therapy
CPT/HCPCS: 36415; 71046; 80048; 80053; 80061; 81001; 82947; 83036; 83605; 83880; 84484; 85025; 87040; 93005; 93306; 99285; J1650; J1940; Q9957

== ENCOUNTER 2023-01-16 22:04 | Inpatient (IN) | payer OTHER, SELFPAY ==
--- NOTE | ~2023-01-16 | XR_ITS ---
EXAMINATION: XR CHEST CLINICAL INFORMATION: Shortness of breath COMPARISON: 01/03/2023 TECHNIQUE: Frontal view of the chest was obtained. FINDINGS: Lung volumes are symmetric. Persistent patchy regions of opacity at the lung bases, right greater than left. No evidence of pneumothorax. Possible small right pleural effusion. Slight prominence of the central vasculature and the right lung. The cardiomediastinal contour is unremarkable. No acute osseous findings are seen. XR/XR chest 1V IMPRESSION: Persistent patchy bibasilar opacities, right greater than left, which could reflect multifocal consolidation. Possible small right pleural effusion and slight prominence of the central vasculature in the right lung.
--- NOTE | ~2023-01-16 | CT_ITS ---
EXAMINATION: CT HEAD WITHOUT CONTRAST CLINICAL INFORMATION: Left-sided numbness COMPARISON: 03/30/2022 TECHNIQUE: Contiguous axial imaging was performed from the skull base to vertex without intravenous administration of contrast. This CT examination was performed using dose optimization techniques as appropriate, variously including the following: *Automated exposure control *Adjustment of mA and/or kV according to patient size (this includes techniques or standardized protocols for targeted exams where dose is matched to indication/reason for exam; i.e. extremities or head) *Use of iterative reconstruction technique DLP: 1711 mGy-cm FINDINGS: There is a focal region of loss of bliss-white differentiation in the right parietal lobe on image 32/57 which is new from prior and suspicious for acute infarct given patient history. Additional smaller region of loss of bliss-white differentiation is noted in the right temporal lobe on image 24/57. There is no evidence of acute intracranial hemorrhage. No abnormal mass-effect or midline shift is seen. Bliss to white matter differentiation is otherwise well preserved. No extra-axial fluid collections are identified. The ventricles are normal in size. The osseous structures and soft tissues are normal. The mastoid air cells and visualized portions of the paranasal sinuses are relatively well-aerated. CT/CT head/brain wo IV con IMPRESSION: Regions of loss of bliss-white differentiation in the right parietal and temporal lobes, suspicious for areas of acute infarct. Further workup with MRI is recommended. This critical result was discussed with Dr. Cote on 01/17/2023 2:37 AM, and it was ascertained that the content and urgency of the report was understood at the time of direct communication.
--- NOTE | ~2023-01-16 | US_ITS ---
EXAMINATION: US EXTRACRANIAL CAROTID DUPLEX, BILATERAL CLINICAL INFORMATION: Stroke COMPARISON: None available. TECHNIQUE: Real-time ultrasound and Doppler techniques (integrating B-mode 2-D vascular images, Doppler spectral analysis and color-flow Doppler imaging) were utilized to interrogate the extracranial carotid arteries, the vertebral arteries and proximal subclavian arteries bilaterally. The degree of stenosis is determined by criteria similar to NASCET. FINDINGS: Right Side: 1. There is no significant atherosclerotic plaque seen in the bifurcation/proximal ICA region. 2. The common carotid artery PSV proximally is 80 cm/s and distally 55 cm/s. 3. The proximal internal carotid artery velocities are 41 cm/s systolic and 17 cm/s diastolic. 4. The proximal external carotid artery PSV is 108 cm/s. 5. The vertebral artery shows antegrade flow. 6. The subclavian artery waveforms are normal. Left Side: 1. There is no significant atherosclerotic plaque seen in the bifurcation/proximal ICA region. 2. The common carotid artery PSV proximally is 96 cm/s and distally 77 cm/s. 3. The proximal internal carotid artery velocities are 45 cm/s systolic and 20 cm/s diastolic. 4. The proximal external carotid artery PSV is 109 cm/s. 5. The vertebral artery shows antegrade flow. 6. The subclavian artery waveforms are normal. US/US carotid duplex BI IMPRESSION: 1. RIGHT: Normal right internal carotid artery without atherosclerotic plaque or hemodynamically significant stenosis. 2. LEFT: Normal left internal carotid artery without atherosclerotic plaque or hemodynamically significant stenosis.
--- NOTE | ~2023-01-16 | MR_ITS ---
EXAMINATION: BRAIN MRI WITHOUT CONTRAST CLINICAL INFORMATION: Cerebrovascular accident. COMPARISON: CT head 01/17/2023. TECHNIQUE: Multiplanar MR imaging of the brain was attempted without contrast. The patient was unable to tolerate the examination and it was terminated prematurely. The only acquired sequences include sagittal T1 FLAIR, axial T2 FLAIR, and diffusion-weighted imaging. FINDINGS: There is restricted diffusion within the vascular territory the right middle cerebral artery consistent with an acute infarct. No intracranial mass effect or hydrocephalus. Grossly no abnormal extra-axial collection. Midline structures including the cervicomedullary junction are normal. No acute bone marrow signal changes. MR/MR head/brain wo con IMPRESSION: The patient was unable to tolerate this examination and it was terminated prematurely. This examination is incomplete and therefore limited. 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 No intracranial mass effect or hydrocephalus.
--- NOTE | 2023-01-16 22:07 | ECG_ITS ---
Test Reason : CHEST PAIN/SOB Blood Pressure : / mmHG Vent. Rate : 090 BPM Atrial Rate : 090 BPM P-R Int : 146 ms QRS Dur : 090 ms QT Int : 358 ms P-R-T Axes : 050 021 079 degrees QTc Int : 437 ms Sinus rhythm with Premature atrial complexes Low voltage QRS Nonspecific T wave abnormality Abnormal ECG When compared with ECG of 03-JAN-2023 11:28, No significant change was found Referred By: Generic ED Physician Electronically Signed By:PASTORA CROUCH MD
[2023-01-16 22:09] VITALS: BP 169/109; PULSE 90; RESP 16; TEMP 36.3; O2SAT 98; BMI 36.8
[2023-01-16 22:33] LABS: MANUAL DIFF FLAG NO
[2023-01-16 22:34] LABS: Basophils Percent Auto 0.5 % (0-2); Eosinophils Absolute Auto 0.3 X10*3/uL (0.0-0.4); Hematocrit 35.9 % (42.0-52.0); Hemoglobin 11.1 g/dl (14.0-18.0); Imm Gran Abs Auto 0.02 X10*3/uL (0.00-0.03); Imm Gran Pct Auto 0.3 % (0.0-0.4); Lymphocytes Absolute Auto 0.9 X10*3/uL (1.2-4.9); Lymphocytes Percent Auto 14.2 % (20-40); Mean Corpuscular HGB Conc 30.9 g/dl (31.0-36.0); Mean Corpuscular Hemoglobin 25.1 pg (27.0-33.0); Mean Platelet Volume 10.7 fL (9.4-12.4); Monocytes Absolute Auto 0.6 X10*3/uL (0.1-1.2); Monocytes Percent Auto 8.5 % (2-11); Neutrophils Absolute Auto 4.7 x10*3/uL (2.0-8.3); Neutrophils Percent Auto 71.5 % (45-73); Platelet Count 392 X10*3/uL (160-400); Red Blood Count 4.43 X10*6/uL (4.60-5.80); Red Cell Distribution Width 13.5 % (11.0-16.0); White Blood Count 6.6 X10*3/uL (4.8-10.8)
[2023-01-16 22:50] LABS: Anion Gap 14 (12-20); Blood Urea Nitrogen 24 mg/dL (9-16); Calcium 8.7 mg/dL (8.4-10.2); Carbon Dioxide 22 mmol/L (22-29); Chloride 109 mmol/L (96-108); Creatinine Clr Calc Pharmacy 61.3; Estimated Glomerular Filt Rate 44; Glucose Random 249 mg/dL (60-115); Potassium 4.3 mmol/L (3.3-5.1); Sodium 141 mmol/L (135-145)
[2023-01-16 22:58] LABS: Troponin-I High Sensitivity 47.1 ng/L (<3.5-35.0)
[2023-01-16 23:39] VITALS: PULSE 91; PULSE 92; RESP 20; O2SAT 98
--- NOTE | 2023-01-16 23:53 | PC.NURSE ---
Assumed care of pt. Pt sitting on stretcher, home wheelchair present, spouse at bedside. Pt Assessment as charted. Pt sts was seen end of December for similar issues, with transfer to [facility] for possible catheterization. Pt sts was dx with CHF, given Lasix IV, with relief of symptoms.
[2023-01-17] VITALS (10 sets, daily range): BP systolic 112–189; BP diastolic 73–113; PULSE 66–96; RESP 16–28; TEMP 36.4–37.6; O2SAT 95–100; BMI 41.6
[2023-01-17] MEDS: Albuterol Sulfate 5 MG, Albuterol/Iprat 2.5/0.5MG 3 ML 3 ML INHALE (00:04)
--- NOTE | 2023-01-17 00:45 | ED_ITS ---
HPI - Chest Pain General Chief Complaint: Chest Pain Stated Complaint: chest pain/ numb fingers Time Seen by Provider: 01/16/23 23:44 Source: patient and family Mode of arrival: wheelchair History of Present Illness HPI narrative: 52-year-old male with significant past medical history of diabetes, hypertension, right BKA who comes in with complaints of increased chest tightening and pain this started approximately 6 hours ago and now on my interview states that he has had left-sided numbness and gestures towards the left side of his head and reports left upper extremity as well as left lower extremity numbness. He denies any associated fever, chills, nausea, vomiting. Related Data Previous Rx's Medication Instructions Recorded albuterol sulfate 90 mcg/actuation 2 puff inhalation Q4-6H PRN 12/20/22 aerosol inhaler (Ventolin HFA) shortness of breath or wheezing #8.5 grams aspirin 81 mg tablet,delayed 81 mg PO DAILY #1 tab 01/05/23 release atorvastatin 40 mg tablet 40 mg PO BEDTIME #1 tab 01/05/23 furosemide 10 mg/mL injection 40 mg IVPUSH DAILY #40 mL 01/05/23 solution insulin lispro 100 unit/mL See Protocol subcut QIDACHS #10 mL 01/05/23 subcutaneous solution (Humalog U-100 Insulin) sacubitril 24 mg-valsartan 26 mg 1 tab PO BID #1 tab 01/05/23 tablet (Entresto) Allergies Allergy/AdvReac Type Severity Reaction Status Date / Time gabapentin AdvReac Intermediate nausea, Verified 01/03/23 11:35 dizziness Review of Systems Review of Systems: Pertinent positives and negatives as stated in HPI [facility] Past Medical History Source: nursing notes reviewed Medical History Asthma Benign essential hypertension Callus under metatarsal head Cardiomyopathy Chronic painful diabetic neuropathy CKD (chronic kidney disease) stage 3, GFR 30-59 ml/min Diabetes mellitus Diabetes mellitus Diabetic foot Diabetic ulcer of foot associated with diabetes mellitus due to underlying condition, with fat layer exposed Dry gangrene Foot abscess, right Gram positive sepsis Hyperlipidemia LDL goal <100 Lumbar degenerative disc disease Neuropathy Obesity Obesity (BMI 30-39.9) Osteomyelitis of ankle or foot, acute Osteomyelitis of left foot Pure hypercholesterolemia Smoker Umbilical hernia Surgical History H/O hernia repair Status post amputation of left great toe Status post below knee amputation of right lower extremity Status post debridement Status post incision and drainage Status post incision and drainage Family History Family History Father Medical history unknown Mother Asthma Hypertension Diabetes Brother Chronic mental illness Diabetes Social History Social History Household Members: Spouse Household Members Other:: girlfriend Housing: Apartment Do you presently have visiting nurse or other home services: No Alcohol intake: former Patient Tobacco Use Status: Current everyday Tobacco user Tobacco use type: Cigarette Cigarette Packs Per Day: 0.5 Cigarettes Per Day: 10 Years Smoked: 30 Second Hand Smoke Exposure: Yes Substance Use Type: Marijuana Advance Directives Date on File: 05/30/20 service: No Current occupational status: employed Physical Exam Vital Signs: Vital Signs: Last Vital Signs Temp 98.1 F 01/17/23 02:05 Pulse 96 01/17/23 02:34 Resp 24 H 01/17/23 02:34 BP 189/108 H 01/17/23 02:34 Pulse Ox 97 01/17/23 02:05 O2 Del Method Room Air 01/17/23 02:05 BMI result Body Mass Index 36.8 VITAL SIGNS: Reviewed. GENERAL: Chronically ill, in no acute distress. HEAD: Normocephalic/atraumatic EYES: PERRLA, EOMI EARS: Ext canals without abnormality NOSE: Nares patent bilateral OROPHARYNX: no oral lesions noted, posterior pharynx clear NECK: Supple, no adenopathy LUNGS: Normal breath sounds. No adventitious sounds or accessory muscle use. SpO2<98> CARDIOVASCULAR: Regular rate and rhythm without noted murmurs, no JVD or lower extremity edema. ABDOMEN: Soft, non-tender, non-distended with bowel sounds. MUSCULOSKELETAL: No tenderness, deformities, or effusions noted on gross inspection. EXTREMITIES: No cyanosis, clubbing or edema; RIGHT LOWER EXTREMITY: BKA; LEFT LOWER EXTREMITY: There is no new pitting edema, there is evidence of skin thickening/chronic nonpitting edema SKIN: Inspection of the skin reveals no rashes NEUROLOGIC: Alert and oriented x 3. Strength and sensation to light touch were grossly intact x 4. Medications Administered Discontinued Medications Generic Name Dose Route Start Last Admin Trade Name Kjq PRN Reason Stop Dose Admin Albuterol Sulfate 5 mg/ 0 mg 01/16/23 23:57 01/17/23 00:04 Albuterol/Ipratropium 3 ml INHALE 01/16/23 23:58 2.5 each ONCE ONE Administration Furosemide 60 mg 01/17/23 01:30 01/17/23 01:43 Furosemide 40 Mg Tablet PO 01/17/23 01:31 60 mg ONCE ONE Administration Protocol Medical Decision Making Medical Decision Making MDM Narrative: 52-year-old male with history and clinical presentation, DDX: Chronic lung disease, CHF, ACS, pneumonia, subacute stroke. - DuoNeb, 60 mg of Lasix orally On review of all investigations hematologic indices demonstrate chronically stable anemia, no leukocytosis or left shift. Chemistry indices demonstrate chronically stable CKD, hyperglycemia and stable/flat troponins with a BNP of 914 as well as chest x-ray demonstrating prominence of the central vasculature. No acute changes on EKG from previous. 0237: I received a call from [facility] who reports concerns of loss of klein-white differentiation in the right parietal and temporal lobes that are suspicious for areas of acute infarct. Patient is outside the window for tPA and currently is asymptomatic for the left-sided numbness. Therefore, patient received aspirin, IV will be placed in he is noted to be hypertensive and will receive a 1/2 inch of nitropaste. He is otherwise hemodynamically stable. 0250: I discussed case with the inpatient hospitalist who accepts admission a nd understands that Neurology has not been contacted but patient will need an MRI in the morning. Patient was informed of all results and findings. Differential Diagnosis Differential Diagnoses: The differential diagnosis associated with the presentation includes Please see the discussion above Admission/Observation Consideration of admission/observation: Escalation of care including admission/observation considered Please see the discussion above Consult Healthcare Provider Management of the patient was discussed with: Hospitalist Please see the discussion above Lab Data [facility] Lab Attestation statement: I reviewed the patient's lab results. Please see the discussion above 01/16/23 22:28 01/16/23 22:28 Labs: Lab Results 01/16/23 01/16/23 01/16/23 Range/Units 22:28 22:28 22:28 WBC 6.6 (4.8-10.8) X10*3/uL RBC 4.43 L (4.60-5.80) X10*6/uL Hgb 11.1 L (14.0-18.0) g/dl Hct 35.9 L (42.0-52.0) % MCV 81.0 (80.0-98.0) fL MCH 25.1 L (27.0-33.0) pg MCHC 30.9 L (31.0-36.0) g/dl RDW 13.5 (11.0-16.0) % Plt Count 392 (160-400) X10*3/uL MPV 10.7 (9.4-12.4) fL Immature Gran % (Auto) 0.3 (0.0-0.4) % Neut % (Auto) 71.5 (45-73) % Lymph % (Auto) 14.2 L (20-40) % [place] % (Auto) 8.5 (2-11) % Eos % (Auto) 5.0 H (0-4) % Baso % (Auto) 0.5 (0-2) % Lymph # (Auto) 0.9 L (1.2-4.9) X10*3/uL [place] # (Auto) 0.6 (0.1-1.2) X10*3/uL Eos # (Auto) 0.3 (0.0-0.4) X10*3/uL Baso # (Auto) 0.0 (0.0-0.2) X10*3/uL Abs Immat Gran (auto) 0.02 (0.00-0.03) X10*3/uL Absolute Neuts (auto) 4.7 (2.0-8.3) x10*3/uL Absolute Nucleated RBC 0.000 (0.0-0.012) X10*3/uL Nucleated RBC % (auto) 0.0 (0.0-0.2) /100WBC Sodium 141 (135-145) mmol/L Potassium 4.3 (3.3-5.1) mmol/L Chloride 109 H (96-108) mmol/L Carbon Dioxide 22 (22-29) mmol/L Anion Gap 14 (12-20) BUN 24 H (9-16) mg/dL Creatinine 1.64 H (0.5-1.4) mg/dL Estim Creat Clear Calc 61.3 Estimated GFR 44 Random Glucose 249 H (60-115) mg/dL Calcium 8.7 (8.4-10.2) mg/dL Troponin I High Sens 47.1 H D (<3.5-35.0) ng/L B-Natriuretic Peptide (<100) pg/mL 01/17/23 01/17/23 Range/Units 02:06 22:28 WBC (4.8-10.8) X10*3/uL RBC (4.60-5.80) X10*6/uL Hgb (14.0-18.0) g/dl Hct (42.0-52.0) % MCV (80.0-98.0) fL MCH (27.0-33.0) pg MCHC (31.0-36.0) g/dl RDW (11.0-16.0) % Plt Count (160-400) X10*3/uL MPV (9.4-12.4) fL Immature Gran % (Auto) (0.0-0.4) % Neut % (Auto) (45-73) % Lymph % (Auto) (20-40) % [place] % (Auto) (2-11) % Eos % (Auto) (0-4) % Baso % (Auto) (0-2) % Lymph # (Auto) (1.2-4.9) X10*3/uL [place] # (Auto) (0.1-1.2) X10*3/uL Eos # (Auto) (0.0-0.4) X10*3/uL Baso # (Auto) (0.0-0.2) X10*3/uL Abs Immat Gran (auto) (0.00-0.03) X10*3/uL Absolute Neuts (auto) (2.0-8.3) x10*3/uL Absolute Nucleated RBC (0.0-0.012) X10*3/uL Nucleated RBC % (auto) (0.0-0.2) /100WBC Sodium (135-145) mmol/L Potassium (3.3-5.1) mmol/L Chloride (96-108) mmol/L Carbon Dioxide (22-29) mmol/L Anion Gap (12-20) BUN (9-16) mg/dL Creatinine (0.5-1.4) mg/dL Estim Creat Clear Calc Estimated GFR Random Glucose (60-115) mg/dL Calcium (8.4-10.2) mg/dL Troponin I High Sens 46.1 H (<3.5-35.0) ng/L B-Natriuretic Peptide 914 H (<100) pg/mL Independent Interpretation I performed an independent interpretation of an: EKG Interpretation: Sinus rhythm with PACs, HR-90, no STEMI, UT/QRS/QTC is within normal limits. Radiology Impression Radiologist Impression: Pulmonary edema, otherwise my interpretation is in agreement with the radiologist's impression of the chest x-ray. CT scan demonstrates concerns for acute infarct. External Record Review External record reviewed: Outpatient record and Prior outpatient labs Chronic Conditions Patient?s care impacted by: Diabetes and Hypertension Critical Care Time Critical Care Time Critical Care Time: Yes Total Critical Care Time: 30 Attestation: I personally attest to this time spent taking care of the patient. Discharge Plan Discharge Clinical Impression: Stroke, CHF exacerbation Patient Disposition: Admitted As Inpatient Prescriptions: No Action albuterol sulfate [Ventolin HFA] 90 mcg/actuation HFA aerosol inhaler 2 puff inhalation Q4-6H PRN (Reason: shortness of breath or wheezing) Qty: 8.5 1RF atorvastatin 40 mg Tablet 40 mg PO BEDTIME Qty: 1 0RF Entresto 24-26 mg Tablet 1 tab PO BID Qty: 1 0RF Protocol: Hold for SBP< HOLD for SBP < : 90 furosemide 10 mg/mL Solution 40 mg IVPUSH DAILY Qty: 40 0RF Protocol: Hold for SBP< HOLD for SBP < : 90 aspirin 81 mg Tablet,Delayed Release (Dr/Ec) 81 mg PO DAILY Qty: 1 0RF insulin lispro [Humalog U-100 Insulin] 100 unit/mL Solution See Protocol subcut QIDACHS Qty: 10 0RF Protocol: Insulin Correction Scale Less than or equal to 110 ---- Give (units): 0 111 to 150 Give (units): 0 151 to 200 Give (units): 2 201 to 250 Give (units): 4 251 to 300 Give (units): 6 301 to 350 Give (units): 8 Greater than 350 Give (units): 10 Call MD if Blood Glucose > : 350
[2023-01-17 00:49] LABS: B Type Natriuretic Peptide 914 pg/mL (<100)
[2023-01-17] MEDS: Furosemide 40 MG TABLET 60 MG PO (01:43)
--- NOTE | 2023-01-17 01:52 | PC.NURSE ---
Pt refusing to have additional attempts at IV access for IV medication, MD aware and changed to PO medication. Pt eating sandwich from home, tolerating without issues. Plan for repeat labs and possible discharge.
[2023-01-17 02:31] LABS: Troponin-I High Sensitivity 46.1 ng/L (<3.5-35.0)
--- NOTE | 2023-01-17 02:35 | MHC.EDTECH ---
Patient urinated 100cc of yellow urine in the urinal.
--- NOTE | 2023-01-17 02:42 | PC.NURSE ---
Pt continuing to endorse mild chest discomfort, increase in respirations (states is baseline at night), and pt hypertensive to 180-190 SBP.
[2023-01-17] MEDS: Nitroglycerin 2 % Oint 1 GM Packet 0.5 INCH TRANSDERMA (02:53)
[2023-01-17] MEDS: Aspirin 81 MG TAB.CHEW 162 MG PO (02:53)
--- NOTE | 2023-01-17 02:59 | PC.NURSE ---
Pt remains neuro intact, speech clear, symmetrical, except for prevoiusly documented numbness and tingling in RUE fingers 3-5 with no change, and weakness in LLE, no change.
[2023-01-17] MEDS: Atorvastatin Calcium 80 MG TABLET PO ×2 (03:10→20:52)
--- NOTE | 2023-01-17 04:14 | MHC.EDTECH ---
400ml urine output RN aware
--- NOTE | 2023-01-17 04:16 | PC.NURSE ---
Removed Nitro paste - permissive Hypertension threshold reached, aware.
--- NOTE | 2023-01-17 06:06 | PM.IMHP ---
History of Present Illness Date of Service: 01/17/23 Chief Complaint: SOB This is a 52-year-old male past medical history of diabetes, hypertension, hyperlipidemia, right BKA, diabetic neuropathy, recently diagnosed CHF, CAD, and SHI who presents the hospital with complaints of shortness of breath. Patient was discharged from the hospital on 01/05 after management of acute CHF and elevated troponins, to [facility]. Patient states that he left AMA due to his unhappiness with staff, he comes in today complaining of shortness of breath, and midsternal chest discomfort as well as numbness and tingling in his left side for the past 2 days. Patient otherwise states that he has not taken any of his discharge medications including furosemide statins or antihyperglycemics and in general has not been compliant with his medication or medical care. Patient is complaining of orthopnea, PND, mild cough, no sputum production. No fever or chills. Patient denies any headache, no change in vision, no urinary symptoms and no lower extremity edema. All other review of systems negative On arrival to the ED patient slightly hypertensive but otherwise vitals stable Labs are significant for WBC count of 6.6 hemoglobin of 11.1, hematocrit of 35.9, creatinine of 1.64 which is around his baseline, troponin of 47 decreased to 46.1, BNP of 914 Chest x-ray showed persistent patchy bibasilar opacities right greater than left, which reflect multifocal consolidation, with possible right pleural effusion and slightly prominence of the central vasculature in the right lung Head CT showed regional loss of klein-white differentiation in the right parietal and temporal lobes, suspicion for acute infarct Review of Systems Review of Systems: Yes all other systems are reviewed and are negative [facility] Medical History Asthma Benign essential hypertension Callus under metatarsal head Cardiomyopathy Chronic painful diabetic neuropathy CKD (chronic kidney disease) stage 3, GFR 30-59 ml/min Diabetes mellitus Diabetes mellitus Diabetic foot Diabetic ulcer of foot associated with diabetes mellitus due to underlying condition, with fat layer exposed Dry gangrene Foot abscess, right Gram positive sepsis Hyperlipidemia LDL goal <100 Lumbar degenerative disc disease Neuropathy Obesity Obesity (BMI 30-39.9) Osteomyelitis of ankle or foot, acute Osteomyelitis of left foot Pure hypercholesterolemia Smoker Umbilical hernia Family History Father Medical history unknown Mother Asthma Hypertension Diabetes Brother Chronic mental illness Diabetes Surgical History H/O hernia repair Status post amputation of left great toe Status post below knee amputation of right lower extremity Status post debridement Status post incision and drainage Status post incision and drainage Social History Household Members: Spouse Household Members Other:: girlfriend Housing: Apartment Do you presently have visiting nurse or other home services: No Alcohol intake: former Patient Tobacco Use Status: Current everyday Tobacco user Tobacco use type: Cigarette Cigarette Packs Per Day: 0.5 Cigarettes Per Day: 10 Years Smoked: 30 Smoked in Last 30 Days: Yes Second Hand Smoke Exposure: Yes Use of substances other than those prescribed or required for medical reasons: Yes Substance Use Type: Marijuana Substance Use Frequency: Occasionally Advance Directives: Yes Advance Directives on File: Yes Advance Directives Date on File: 05/30/20 Nutrition Risks: Diabetes new onset/Uncontrolled service: No Current occupational status: employed Meds Allergies Allergy/AdvReac Type Severity Reaction Status Date / Time gabapentin AdvReac Intermediate nausea, Verified 01/03/23 11:35 dizziness Active Medications: Current Medications Acetaminophen (Acetaminophen 325 Mg Tablet) 650 mg PO Q6H PRN PRN Reason: Pain, Mild (Pain Scale 1-3) Aspirin (Aspirin Enteric Coated 81 Mg Tablet.) 81 mg PO DAILY [facility] Atorvastatin Calcium (Atorvastatin Calcium 80 Mg Tablet) 80 mg PO BEDTIME [facility] Last Admin: 01/17/23 03:10 Dose: 80 mg Dextrose (Dextrose 50 % 25 Gm/50 Ml Syringe) 25 gm IVPUSH Q15M PRN; Protocol PRN Reason: per Hypoglycemia Standing Ord. Docusate Sodium (Docusate Sodium 100 Mg Capsule) 100 mg PO DAILY PRN PRN Reason: Constipation Furosemide (Furosemide 40 Mg/4 Ml Vial) 40 mg IVPUSH BID@0800,1700 [facility]; Protocol Glucose (Glucose Gel 15 Gm Gel..Gram.) 15 gm PO Q15M PRN; Protocol PRN Reason: per Hypoglycemia Standing Ord. Insulin Human Lispro (Insulin Lispro 100 Unit/Ml 3 Ml Vial) 0 unit SUBCUT QIDACHS [facility]; Protocol Ondansetron HCl (Ondansetron Hcl 4 Mg/2 Ml Vial) 4 mg IVPUSH Q8H PRN PRN Reason: Nausea and Vomiting Physical Exam Vital Signs and Narrative: Vital Signs: Last Vital Signs Temp 98.1 F 01/17/23 04:13 Pulse 93 01/17/23 04:13 Resp 28 H 01/17/23 04:13 BP 154/101 H 01/17/23 04:13 Pulse Ox 96 01/17/23 04:13 O2 Del Method Room Air 01/17/23 04:13 BMI result Body Mass Index 36.8 Const: General: cooperative and no acute distress Orientation/consciousness: patient oriented x3 Eyes: General: appearance normal, both eyes and all related structures Pupils: Equal, round and reactive pupils present Resp: Effort & Inspection: normal respiratory effort Auscultation: clear to auscultation bilaterally Cardio: Rate: regular rate Rhythm: regular rhythm GI: Palpation (GI): Soft to palpation Auscultation: normal bowel sounds Skin: General skin exam: no rashes or lesions noted Neuro: Other: Unable to complete full neurological exam is patient is sleepy and not really cooperating, but has 5/5 strength in upper and lower left extremities General: patient oriented x3 Cranial nerves: Yes Equal, round and reactive pupils present Cognition (Neuro): normal cognition Extrem: Other: Right BKA No pedal edema Results Labs 01/16/23 22:28 01/16/23 22:28 Labs: Laboratory Results - last 24 hr 01/16/23 01/16/23 01/16/23 22:28 22:28 22:28 MCV 81.0 MCH 25.1 L MCHC 30.9 L RDW 13.5 Plt Count 392 MPV 10.7 Immature Gran % (Auto) 0.3 Neut % (Auto) 71.5 Lymph % (Auto) 14.2 L [place] % (Auto) 8.5 Eos % (Auto) 5.0 H Baso % (Auto) 0.5 Lymph # (Auto) 0.9 L [place] # (Auto) 0.6 Eos # (Auto) 0.3 Baso # (Auto) 0.0 Abs Immat Gran (auto) 0.02 Absolute Neuts (auto) 4.7 Absolute Nucleated RBC 0.000 Nucleated RBC % (auto) 0.0 Anion Gap 14 Estim Creat Clear Calc 61.3 Estimated GFR 44 Random Glucose 249 H Calcium 8.7 Troponin I High Sens 47.1 H D B-Natriuretic Peptide 01/17/23 01/17/23 02:06 22:28 MCV MCH MCHC RDW Plt Count MPV Immature Gran % (Auto) Neut % (Auto) Lymph % (Auto) [place] % (Auto) Eos % (Auto) Baso % (Auto) Lymph # (Auto) [place] # (Auto) Eos # (Auto) Baso # (Auto) Abs Immat Gran (auto) Absolute Neuts (auto) Absolute Nucleated RBC Nucleated RBC % (auto) Anion Gap Estim Creat Clear Calc Estimated GFR Random Glucose Calcium Troponin I High Sens 46.1 H B-Natriuretic Peptide 914 H Imaging Radiologist's Impressions: Impressions Chest X-Ray 01/17/23 00:04 IMPRESSION: Persistent patchy bibasilar opacities, right greater than left, which could reflect multifocal consolidation. Possible small right pleural effusion and slight prominence of the central vasculature in the right lung. Head CT 01/17/23 01:55 IMPRESSION: Regions of loss of klein-white differentiation in the right parietal and temporal lobes, suspicious for areas of acute infarct. Further workup with MRI is recommended. This critical result was discussed with Dr. Cote on 01/17/2023 2:37 AM, and it was ascertained that the content and urgency of the report was understood at the time of direct communication. Assessment and Plan (1) Acute CVA (cerebrovascular accident): Status: Acute (2) CHF exacerbation: Status: Acute Plan 52-year-old male past medical history of CAD as well as CHF, diabetes, hypertension presents the hospital with complaints of shortness of breath found to have CHF as well as new CVA # acute CVA - evidence of acute CVA on CT head - patient noncompliant with his medications -at this time will resume his aspirin, statin - will obtain MRI - patient with underlying CKD, will obtain bilateral carotid duplex studies - admit to telemetry - neurology consulted - lipid battery # CHF exacerbation - has evidence of CHF exacerbation including dyspnea, x-ray evidence of volume overload and elevated BNP - patient noncompliant with p.o. Lasix - will treat with IV Lasix, strict I&O, low-sodium diet - monitor output - no need to repeat echo as he had a recent echo in December # diabetes - patient noncompliant with any of his antihyperglycemics - will start him on low-dose sliding scale insulin - diabetic diet # hypertension - elevated - resume home antihypertensive even though patient noncompliant # CAD - continue aspirin, statin, Entresto, DVT prophylaxis: Lovenox Time Spent With Patient Time: Total time managing care of this patient today ____ minutes. Quality Stroke Does the patient have a stroke diagnosis?: No VTE Prior VTE?: No VTE Risk Level:: Medical - moderate - high VTE Device Contraindication: Treatment Not Indicated VTE Drug Contraindication: N/A - Med Ordered
[2023-01-17 06:09] LABS: Anion Gap 13 (12-20); Blood Urea Nitrogen 23 mg/dL (9-16); Calcium 8.9 mg/dL (8.4-10.2); Carbon Dioxide 18 mmol/L (22-29); Chloride 111 mmol/L (96-108); Creatinine Clr Calc Pharmacy 63.6; Estimated Glomerular Filt Rate 46; Glucose Random 219 mg/dL (60-115); Potassium 4.4 mmol/L (3.3-5.1); Sodium 138 mmol/L (135-145)
[2023-01-17 06:22] LABS: Basophils Percent Auto 0.6 % (0-2); Eosinophils Absolute Auto 0.3 X10*3/uL (0.0-0.4); Eosinophils Percent Auto 4.3 % (0-4); Hematocrit 33.6 % (42.0-52.0); Hemoglobin 10.5 g/dl (14.0-18.0); Imm Gran Abs Auto 0.01 X10*3/uL (0.00-0.03); Imm Gran Pct Auto 0.1 % (0.0-0.4); Lymphocytes Absolute Auto 1.2 X10*3/uL (1.2-4.9); Lymphocytes Percent Auto 16.8 % (20-40); Mean Corpuscular HGB Conc 31.3 g/dl (31.0-36.0); Mean Corpuscular Hemoglobin 25.1 pg (27.0-33.0); Mean Corpuscular Volume 80.2 fL (80.0-98.0); Mean Platelet Volume 10.7 fL (9.4-12.4); Monocytes Absolute Auto 0.9 X10*3/uL (0.1-1.2); Monocytes Percent Auto 13.1 % (2-11); Neutrophils Absolute Auto 4.6 x10*3/uL (2.0-8.3); Neutrophils Percent Auto 65.1 % (45-73); Platelet Count 375 X10*3/uL (160-400); Red Blood Count 4.19 X10*6/uL (4.60-5.80); Red Cell Distribution Width 13.4 % (11.0-16.0)
--- NOTE | 2023-01-17 07:00 | CA_ITS ---
Transthoracic Echocardiogram Limited Patient (Last, First, Middle): Declan Bermudez G Gender: Male Date of : 1970 Age: 52 Procedure Date: 01/17/2023 Procedure Type: Transthoracic Echocardiogram Limited Location: [facility] Height: 170.18 cm Weight: 106.6 kg BSA: 2.17 m2 Heart Rate: bpm BP: 176 / 108 mmHg Principal Associate: Referring MD: Caridad Cali MD Shipping Support: Rajan Rodriguez MD Symptoms: eval for LV thrombus Study Quality: Adequate w Contrast ECG Rhythm: Sinus Conclusions: - Severe LV systolic dysfunction with LVEF of 25-30% with grade 3 diastolic dysfunction without evidence of LV thrombus with regional wall motion abnormality consistent with ischemic cardiomyopathy Findings Procedure Information Contrast agent, definity, is being given per protocol without apparent complications. Left Ventricle Normal left ventricular cavity size. There is severely increased left ventricular wall thickness. The left ventricular systolic function is severely decreased. The visually estimated ejection fraction is between 25 30%. There is evidence of regional wall motion abnormalities. Spectral Doppler is indicative of a restrictive filling pattern. E/E prime ratio is >15, consistent with elevated filling pressures. Evidence suggests grade III (severe) diastolic dysfunction. There is no evidence of a thrombus in the left ventricle. Prior Study Comparison Changes noted compared to prior study dated: 01/04/2023. LV systolic function marginally reduced Measurements 2D Linear Measurements IVSd: 1.60 0.6-0.9/0.6-1.0 cm LVIDd: 5.10 3.9-5.3/4.2-5.9 cm LVIDd Index: 2.35 2.4-3.2/2.2-3.1 cm/m2 LVIDs: 4.20 2.0-3.6 cm LVPWd: 1.70 0.7-1.1 cm LV Mass: 478.46 67-162/88-224 g LV Mass Index: 220.49 43-95/49-115 g/m2 2D Systolic Function EF 4C: 30.50 >55% EF 2C: 24.10 >55% EF BiP: 28.00 >55% Right Ventricle TAPSE (mm): 24.00 TVS' Alberto: 10.00 Tricuspid Valve TR Pk Alberto: 2.17 TR Pk Grad: 19.00 RA Press: 8.00 RVSP: 27.00 Updated in Other Vendor System with Status of Final Rajan Rodriguez MD electronically signed on 01/18/2023 8:46:51 AM with status of Final
[2023-01-17 07:13] LABS: MANUAL DIFF FLAG NO
--- NOTE | 2023-01-17 07:22 | PHA.MEDREC ---
Pharmacy Consult ? Medication Reconciliation Pharmacy has completed the medication reconciliation. Reviewed med rec done by nurse Gonzalez, who used claim history and recent discharge summary from visit on 01/06; spoke to Carlos directly who noted that inpatient provider requested he add new medications from recent discharge to the med list but did also note that pt stated that he is not currently taking medications he is supposed to be taking.
[2023-01-17 07:57] LABS: Glucose, Whole Blood 186 mg/dL (60-115)
[2023-01-17] MEDS: Aspirin Enteric Coated 81 MG TABLET.DR PO (08:09)
[2023-01-17] MEDS: amLODIPine Besylate 5 MG TABLET PO (08:09)
[2023-01-17] MEDS: Furosemide 40 MG/4 ML VIAL IVPUSH ×2 (08:09→17:13)
[2023-01-17] MEDS: Enoxaparin Sodium 40 MG/0.4 ML SYRINGE SUBCUT (08:10)
[2023-01-17] MEDS: Insulin Lispro 100 UNIT/ML 3 ML VIAL SUBCUT ×4 (08:10→20:51)
[2023-01-17] MEDS: Sacubitril/Valsartan 24/26 1 TAB TABLET PO (08:10)
--- NOTE | 2023-01-17 08:16 | PC.NURSE ---
Alert and oriented, denies pain, meds given as ordered. Vss, nsr on monitor
--- NOTE | 2023-01-17 08:17 | PC.NURSE ---
MRI screening form completed and faxed to MRI
--- NOTE | 2023-01-17 10:13 | P.CONCA_ITS ---
History of Present Illness History of Present Illness Date of Service: 01/17/23 Requesting physician: Caridad Cali Consult reason: chest pain, hypertension and congestive heart failure Chief complaint: CVA/CHF Narrative: I was consulted to see Declan in cardiology consultation today for new stroke as well as decompensated congestive heart failure. Patient 52-year-old male who was recently admitted with decompensated congestive in chest pain and subsequent echocardiogram showing moderate to severe LV systolic dysfunction with LAD territory wall motion abnormality and transferred to [facility] for cardiac catheterization. He however signed out against medical advise from [facility]. He since then has not been taking his medication has been noncompliant. He has prior history of noncompliance and admits to noncompliance and not taking comes diabetes. His history of right below-knee amputation related to poor diabetes control, infection and PVD he says. He also has transmetatarsal amputation on the left foot. He has poorly controlled diabetes. He comes to the hospital with numbness on his left side of the body and noted to have right-sided CVA in the parietal lobe consistent with his symptoms. He is also having increased symptoms of shortness of breath, orthopnea, chest pressure tightness in came to the emergency room and noted to be in decompensated congestive heart failure with elevated BNP and hypoxemia. His CT head is positive for acute CVA. He did not receive tPA. He currently says his chest tightness has improved and shortness of breath is marginally improved. His blood pressure is significantly elevated. He denies any palpitations, lightheadedness, syncope. Review of Systems Constitutional: Constitutional: Reports no additional constitutional complaints Cardiovascular: Cardiovascular: Denies Abdominal Distension, Reports chest pain at rest, Denies rapid heart rate, Denies lightheadedness, Denies Loss of Consciousness, Denies palpitations, Reports dyspnea on exertion and Reports orthopnea Respiratory: Respiratory: Reports no additional respiratory complaints and Reports dyspnea on exertion Gastrointestinal: Gastrointestinal: Reports no additional gastrointestinal complaints Genitourinary: Genitourinary: Reports no additional male genitourinary complaints Musculoskeletal: Musculoskeletal: Reports no additional musculoskeletal complaints and Reports numbness Neurologic: Reports numbness Psychiatric: Psychiatric: Reports no additional psychiatric complaints Endocrine: Endocrine: Reports no additional endocrine complaints and Denies palpitations Hematologic/Lymphatic: Hematologic/Lymphatic: Reports no additional hematologic/lymphatic complaints Allergic/Immunologic: Allergic/Immunologic: Reports no additional allergic/immunologic complaints PMFSH Past Medical History Medical History Asthma Benign essential hypertension Callus under metatarsal head Cardiomyopathy Chronic painful diabetic neuropathy CKD (chronic kidney disease) stage 3, GFR 30-59 ml/min Diabetes mellitus Diabetes mellitus Diabetic foot Diabetic ulcer of foot associated with diabetes mellitus due to underlying condition, with fat layer exposed Dry gangrene Foot abscess, right Gram positive sepsis Hyperlipidemia LDL goal <100 Lumbar degenerative disc disease Neuropathy Obesity Obesity (BMI 30-39.9) Osteomyelitis of ankle or foot, acute Osteomyelitis of left foot Pure hypercholesterolemia Smoker Umbilical hernia Family History Family History Father Medical history unknown Mother Asthma Hypertension Diabetes Brother Chronic mental illness Diabetes Surgical History Surgical History H/O hernia repair Status post amputation of left great toe Status post below knee amputation of right lower extremity Status post debridement Status post incision and drainage Status post incision and drainage Social History Social History Household Members: Spouse Household Members Other:: girlfriend Housing: Apartment Do you presently have visiting nurse or other home services: No Alcohol intake: former Patient Tobacco Use Status: Current everyday Tobacco user Tobacco use type: Cigarette Cigarette Packs Per Day: 0.5 Cigarettes Per Day: 10 Years Smoked: 30 Smoked in Last 30 Days: Yes Second Hand Smoke Exposure: Yes Use of substances other than those prescribed or required for medical reasons: Yes Substance Use Type: Marijuana Substance Use Frequency: Occasionally Advance Directives: Yes Advance Directives on File: Yes Advance Directives Date on File: 05/30/20 Nutrition Risks: Diabetes new onset/Uncontrolled service: No Current occupational status: employed Meds Allergies Allergy/AdvReac Type Severity Reaction Status Date / Time gabapentin AdvReac Intermediate nausea, Verified 01/03/23 11:35 dizziness Active Medications: Current Medications Acetaminophen (Acetaminophen 325 Mg Tablet) 650 mg PO Q6H PRN PRN Reason: Pain, Mild (Pain Scale 1-3) Albuterol Sulfate (Albuterol Sulfate 90 Mcg 8 Gm Inhaler) 2 puff INHALE RQ4H PRN PRN Reason: wheezing Amlodipine Besylate (Amlodipine Besylate 5 Mg Tablet) 5 mg PO DAILY [facility]; Protocol Last Admin: 01/17/23 08:09 Dose: 5 mg Aspirin (Aspirin Enteric Coated 81 Mg Tablet.Dr) 81 mg PO DAILY [facility] Last Admin: 01/17/23 08:09 Dose: 81 mg Atorvastatin Calcium (Atorvastatin Calcium 80 Mg Tablet) 80 mg PO BEDTIME [facility] Last Admin: 01/17/23 03:10 Dose: 80 mg Dextrose (Dextrose 50 % 25 Gm/50 Ml Syringe) 25 gm IVPUSH Q15M PRN; Protocol PRN Reason: per Hypoglycemia Standing Ord. Docusate Sodium (Docusate Sodium 100 Mg Capsule) 100 mg PO DAILY PRN PRN Reason: Constipation Enoxaparin Sodium (Enoxaparin Sodium 40 Mg/0.4 Ml Syringe) 40 mg SUBCUT Q24H [facility] Last Admin: 01/17/23 08:10 Dose: 40 mg Furosemide (Furosemide 40 Mg/4 Ml Vial) 40 mg IVPUSH BID@0800,1700 [facility]; Protocol Last Admin: 01/17/23 08:09 Dose: 40 mg Glucose (Glucose Gel 15 Gm Gel..Gram.) 15 gm PO Q15M PRN; Protocol PRN Reason: per Hypoglycemia Standing Ord. Insulin Human Lispro (Insulin Lispro 100 Unit/Ml 3 Ml Vial) 0 unit SUBCUT QIDACHS [facility]; Protocol Last Admin: 01/17/23 08:10 Dose: 2 unit Ondansetron HCl (Ondansetron Hcl 4 Mg/2 Ml Vial) 4 mg IVPUSH Q8H PRN PRN Reason: Nausea and Vomiting Sacubitril/Valsartan (Sacubitril/Valsartan 1 Tab Tablet) 1 tab PO BID [facility]; Protocol Last Admin: 01/17/23 08:10 Dose: 1 tab Home Medications Medication Instructions Recorded Confirmed Last Taken Type albuterol sulfate 90 mcg/actuation 2 puff inhalation Q4-6H PRN 01/17/23 01/17/23 Unknown History aerosol inhaler (Ventolin HFA) wheezing amlodipine 5 mg tablet 5 mg PO DAILY 01/17/23 01/17/23 Unknown History aspirin 81 mg tablet 81 mg PO DAILY 01/17/23 01/17/23 Unknown History atorvastatin 40 mg tablet 40 mg PO BEDTIME 01/17/23 01/17/23 Unknown History furosemide 40 mg tablet 40 mg PO DAILY 01/17/23 01/17/23 Unknown History glipizide 10 mg tablet, extended 10 mg PO DAILY 01/17/23 01/17/23 Unknown History release 24 hr insulin lispro 100 unit/mL 1 sliding scale dose subcut QIDACHS 01/17/23 01/17/23 Unknown History subcutaneous solution sacubitril 24 mg-valsartan 26 mg 1 tab PO BID 01/17/23 01/17/23 Unknown History tablet (Entresto) Physical Exam Vital Signs: Vital Signs: Last Vital Signs Temp 99.7 F 01/17/23 07:48 Pulse 88 01/17/23 07:48 Resp 25 H 01/17/23 07:48 BP 176/108 H 01/17/23 07:48 Pulse Ox 96 01/17/23 07:48 O2 Del Method Room Air 01/17/23 07:48 BMI result Body Mass Index 36.8 Const: General: cooperative, comfortable, no acute distress, alert and awake Nutritional Appearance: obese Orientation/consciousness: patient oriented x3 HEENT: Head: Yes normocephalic and Yes atraumatic Neck: Neck: Yes trachea midline, Yes supple and Yes JVD Resp: Effort & Inspection: normal respiratory effort Auscultation: no rales, no wheezes and diminished lung sounds Cardio: Jugular venous distension: JVD Palpation: abnormal PMI displaced PMI Rate: regular rate Rhythm: regular rhythm Heart sounds: S1 normal heart sound present, S2 normal heart sound present, no click, no gallops, no murmurs and no rubs GI: Auscultation: normal bowel sounds Skin: General skin exam: no rashes or lesions noted Neuro: General: patient oriented x3 and no focal motor deficits Extrem: General: Yes no clubbing, cyanosis or edema and Yes other (Right below-knee amputation) Objective Labs and Meds 01/17/23 06:15 01/17/23 05:40 Lab results: Laboratory Results - last 24 hr 01/16/23 01/16/23 01/16/23 22:28 22:28 22:28 WBC 6.6 RBC 4.43 L Hgb 11.1 L Hct 35.9 L MCV 81.0 MCH 25.1 L MCHC 30.9 L RDW 13.5 Plt Count 392 MPV 10.7 Immature Gran % (Auto) 0.3 Neut % (Auto) 71.5 Lymph % (Auto) 14.2 L [place] % (Auto) 8.5 Eos % (Auto) 5.0 H Baso % (Auto) 0.5 Lymph # (Auto) 0.9 L [place] # (Auto) 0.6 Eos # (Auto) 0.3 Baso # (Auto) 0.0 Abs Immat Gran (auto) 0.02 Absolute Neuts (auto) 4.7 Absolute Nucleated RBC 0.000 Nucleated RBC % (auto) 0.0 Sodium 141 Potassium 4.3 Chloride 109 H Carbon Dioxide 22 Anion Gap 14 BUN 24 H Creatinine 1.64 H Estim Creat Clear Calc 61.3 Estimated GFR 44 POC Glucose Random Glucose 249 H Calcium 8.7 Troponin I High Sens 47.1 H D B-Natriuretic Peptide 01/17/23 01/17/23 01/17/23 02:06 05:40 06:15 WBC 7.0 RBC 4.19 L Hgb 10.5 L Hct 33.6 L MCV 80.2 MCH 25.1 L MCHC 31.3 RDW 13.4 Plt Count 375 MPV 10.7 Immature Gran % (Auto) 0.1 Neut % (Auto) 65.1 Lymph % (Auto) 16.8 L [place] % (Auto) 13.1 H Eos % (Auto) 4.3 H Baso % (Auto) 0.6 Lymph # (Auto) 1.2 [place] # (Auto) 0.9 Eos # (Auto) 0.3 Baso # (Auto) 0.0 Abs Immat Gran (auto) 0.01 Absolute Neuts (auto) 4.6 Absolute Nucleated RBC 0.000 Nucleated RBC % (auto) 0.0 Sodium 138 Potassium 4.4 Chloride 111 H Carbon Dioxide 18 L Anion Gap 13 BUN 23 H Creatinine 1.58 H Estim Creat Clear Calc 63.6 Estimated GFR 46 POC Glucose Random Glucose 219 H Calcium 8.9 Troponin I High Sens 46.1 H B-Natriuretic Peptide 01/17/23 01/17/23 07:52 22:28 WBC RBC Hgb Hct MCV MCH MCHC RDW Plt Count MPV Immature Gran % (Auto) Neut % (Auto) Lymph % (Auto) [place] % (Auto) Eos % (Auto) Baso % (Auto) Lymph # (Auto) [place] # (Auto) Eos # (Auto) Baso # (Auto) Abs Immat Gran (auto) Absolute Neuts (auto) Absolute Nucleated RBC Nucleated RBC % (auto) Sodium Potassium Chloride Carbon Dioxide Anion Gap BUN Creatinine Estim Creat Clear Calc Estimated GFR POC Glucose 186 H Random Glucose Calcium Troponin I High Sens B-Natriuretic Peptide 914 H EKG shows normal sinus rhythm with poor R-wave progression with no significant ST T wave changes Imaging Radiologist's impression: Impressions Chest X-Ray 01/17/23 00:04 IMPRESSION: Persistent patchy bibasilar opacities, right greater than left, which could reflect multifocal consolidation. Possible small right pleural effusion and slight prominence of the central vasculature in the right lung. Head CT 01/17/23 01:55 IMPRESSION: Regions of loss of klein-white differentiation in the right parietal and temporal lobes, suspicious for areas of acute infarct. Further workup with MRI is recommended. This critical result was discussed with Dr. Cote on 01/17/2023 2:37 AM, and it was ascertained that the content and urgency of the report was understood at the time of direct communication. Assessment and Plan (1) CHF exacerbation: Status: Acute Decompensated congestive in this middle-aged man with moderate to severe LV systolic dysfunction secondary to ischemic cardiomyopathy related to noncompliance with his medications and treatment plan. This is unfortunate for him. Discussed with him importance of managing his cardiovascular condition to help him live longer and avoid hospitalizations. Notice of medical therapy and follow-up plan need to be pursued. Unfortunately he now has acute CVA and need to evaluate for LV thrombus. Would dual limited echocardiogram with definity contrast to evaluate for LV thrombus as a cause of CVA which may require oral anticoagulation therapy. Continue workup as per Neurology and hospitalist team otherwise. Clinically still decompensated. Continue IV diuresis with Lasix. He needs better blood pressure control. Can continue amlodipine for now but eventually switch to all other neurohormonal modulation says to manage his blood pressure heart failure syndrome. Can increase Entresto to 49-51 mg b.i.d.. Add Coreg 3.125 mg b.i.d. to his regimen. Add Jardiance 10 mg to his regimen. Strict intake and output chart needs to be pursued. Continue monitor for electr olytes and renal function and diurese as tolerated. Overall prognosis is guarded due to his noncompliance. Eventually require ischemic workup although given that he has acute CVA will need to be postponed for at least 6 weeks. Will continue to follow with you Time Spent With Patient Time: Total time managing care of this patient today ____ minutes. Procedures Date of Service Date of Service: 01/17/23
--- NOTE | 2023-01-17 10:41 | PC.NURSE ---
Resting quietly at this time, denies any pain or discomfort
--- NOTE | 2023-01-17 11:04 | PM.EVENT ---
Event Note Date of Service: 01/17/23 Event Note: day hospitalist update S c/o L hand weakness + L-sided numbness c/o dyspnea, leg swelling noncompliant with medications and signed out from [facility] [place] before getting cardiac catheterization O VS T 99.7, P 88, BP 176/108, R 18, SaO2 96 on RA I/O -350 thus far Gen: in no acute distress HEENT: sclera anicteric, moist mucus membranes Neck: supple, JVD present Lungs: clear to auscultation bilaterally Heart: regular rate and rhythm, no murmurs Abd: soft, non-tender, non-distended Ext: 1+ leg edema, R BKA, L TMA Skin: warm/well-perfused Neuro: alert and oriented x3, no focal findings Psych: appropriate affect A/P d1 52yo M with CAD, chronic HFrEF, ischemic cardiomyopathy, DM2, HTN, noncompliance signed out AMA 01/05/23 from, [facility], where we had transferred him for cardiac catheterization presenting with dyspnea + edema, also 2d of L-sided numbness + decreased grocery supervisor strength found to have acute CVA acute CVA - ASA, statin - MRI, carotid doppler US, Neuro consult, PT/OT pending - limited TTE to evaluate for LV thrombus acute-chronic HFrEF - continue IV furosemide - Cardiology consulted; increase Entresto + add carvedilol; also start Jardiance - monitor I/O, weights, lytes DM2, A1c 10.1 (12/28/22) - correction-dose lispro, Jardiance HTN - amlodipine, Entresto, carvedilol CAD - aspirin, statin VTE ppx: LMWH dispo: STR In my clinical judgment, the patient requires continued inpatient hospitalization for the following reasons: IV diuresis, CVA workup Time Spent With Patient Time: Total time managing care of this patient today ____ minutes.
--- NOTE | 2023-01-17 11:53 | PC.NURSE ---
Patient continues with left sided weakness, unable to grasp objects in left hand. denies numbness or tingling in left hand. Denies sob, headache, or chest pain.
[2023-01-17 12:58] LABS: Glucose, Whole Blood 158 mg/dL (60-115)
--- NOTE | 2023-01-17 13:01 | PC.NURSE ---
Patient at MRI at this time. Report given to accepting unit. Will be transferred upon return from MRI
[2023-01-17] MEDS: Empagliflozin 10 MG TABLET PO (13:17)
--- NOTE | 2023-01-17 13:18 | PC.NURSE ---
Back from MRI, eating lunch and will be transported to unit
--- NOTE | 2023-01-17 13:56 | MHC.CM.PN ---
Met with patient and sig other, Marli in regards to discharge planning. [place] was [place] [facility] [place] [facility]. Patient ended up leaving AMA from [facility]. Patient now found to have experienced CVA. Patient lives with Marli and uses a wheelchair at baseline for mobility due to right BKA. PCP verified. Copy of HCP verified to be on file. Patient has not received any Covid vaccines. Patient requests referrals be sent to: 1)[facility] [address] Referrals made via [facility]. Continue to monitor for d/c needs.
[2023-01-17 16:22] LABS: Magnesium 2.1 mg/dL (1.6-2.6)
[2023-01-17 16:31] LABS: Glucose, Whole Blood 183 mg/dL (60-115)
[2023-01-17] MEDS: carvediloL 3.125 MG TABLET PO ×2 (17:14→20:52)
--- NOTE | 2023-01-17 17:21 | PM.NEUROCN ---
History of Present Illness Data of Consult Service Date: 01/17/23 Primary Care Provider: Gabe Chisholm MD HPI Reason for consult: Stroke This is a 52-year-old male with h/o diabetes since age 33, hypertension, hyperlipidemia, right BKA, diabetic neuropathy, CHF, CAD, and SHI who says that he woke up 2 days ago and felt his left dominant hand to be weak . It has improved but not back to normal. No previous stroke Hx. Patient was discharged from the hospital on 01/05 after management of acute CHF and elevated troponins, to [facility] and left [place] , he comes in today complaining of shortness of breath, and midsternal chest discomfort as well as numbness and tingling in his left side for the past 2 days.? Patient otherwise states that he has not taken any of his discharge medications including furosemide statins or antihyperglycemics and in general has not been compliant with his medication or medical care.?Head CT showed regional loss of klein-white differentiation in the right parietal and temporal lobes, suspicion for acute infarct MRI shows acute right parietal infarct in MCA distribution. Carotid US negative for carotid disease Review of Systems Review of Systems: Pertinent positives and negatives as stated in HPI Yes all other systems are reviewed and are negative Constitutional: Constitutional: Reports no additional constitutional complaints Cardiovascular: Cardiovascular: Denies Abdominal Distension, Reports chest pain at rest, Denies rapid heart rate, Denies lightheadedness, Denies Loss of Consciousness, Denies palpitations, Reports dyspnea on exertion and Reports orthopnea Respiratory: Respiratory: Reports no additional respiratory complaints and Reports dyspnea on exertion Gastrointestinal: Gastrointestinal: Reports no additional gastrointestinal complaints Genitourinary: Genitourinary: Reports no additional male genitourinary complaints Musculoskeletal: Musculoskeletal: Reports no additional musculoskeletal complaints and Reports numbness Neurologic: Reports numbness Psychiatric: Psychiatric: Reports no additional psychiatric complaints Endocrine: Endocrine: Reports no additional endocrine complaints and Denies palpitations Hematologic/Lymphatic: Hematologic/Lymphatic: Reports no additional hematologic/lymphatic complaints Allergic/Immunologic: Allergic/Immunologic: Reports no additional allergic/immunologic complaints [facility] Past Medical History Medical History Asthma Benign essential hypertension Callus under metatarsal head Cardiomyopathy Chronic painful diabetic neuropathy CKD (chronic kidney disease) stage 3, GFR 30-59 ml/min Diabetes mellitus Diabetes mellitus Diabetic foot Diabetic ulcer of foot associated with diabetes mellitus due to underlying condition, with fat layer exposed Dry gangrene Foot abscess, right Gram positive sepsis Hyperlipidemia LDL goal <100 Lumbar degenerative disc disease Neuropathy Obesity Obesity (BMI 30-39.9) Osteomyelitis of ankle or foot, acute Osteomyelitis of left foot Pure hypercholesterolemia Smoker Umbilical hernia Family History Family History Father Medical history unknown Mother Asthma Hypertension Diabetes Brother Chronic mental illness Diabetes Surgical History Surgical History H/O hernia repair Status post amputation of left great toe Status post below knee amputation of right lower extremity Status post debridement Status post incision and drainage Status post incision and drainage Social History Social History Household Members: Spouse Household Members Other:: girlfriend Housing: House Do you presently have visiting nurse or other home services: No Alcohol intake: former Patient Tobacco Use Status: Current everyday Tobacco user Tobacco use type: Cigarette Cigarette Packs Per Day: 1.5 Cigarettes Per Day: 30.0 Years Smoked: 30 Second Hand Smoke Exposure: Yes Substance Use Type: Marijuana Advance Directives Date on File: 05/30/20 service: No Current occupational status: employed Meds Allergies Allergy/AdvReac Type Severity Reaction Status Date / Time gabapentin AdvReac Intermediate nausea, Verified 01/03/23 11:35 dizziness Active Medications: Current Medications Acetaminophen (Acetaminophen 325 Mg Tablet) 650 mg PO Q6H PRN PRN Reason: Pain, Mild (Pain Scale 1-3) Albuterol Sulfate (Albuterol Sulfate 90 Mcg 8 Gm Inhaler) 2 puff INHALE RQ4H PRN PRN Reason: wheezing Amlodipine Besylate (Amlodipine Besylate 5 Mg Tablet) 5 mg PO DAILY [facility]; Protocol Last Admin: 01/17/23 08:09 Dose: 5 mg Aspirin (Aspirin Enteric Coated 81 Mg Tablet.) 81 mg PO DAILY [facility] Last Admin: 01/17/23 08:09 Dose: 81 mg Atorvastatin Calcium (Atorvastatin Calcium 80 Mg Tablet) 80 mg PO BEDTIME [facility] Last Admin: 01/17/23 03:10 Dose: 80 mg Carvedilol (Carvedilol 3.125 Mg Tablet) 3.125 mg PO BID [facility]; Protocol Last Admin: 01/17/23 17:14 Dose: 3.125 mg Dextrose (Dextrose 50 % 25 Gm/50 Ml Syringe) 25 gm IVPUSH Q15M PRN; Protocol PRN Reason: per Hypoglycemia Standing Ord. Docusate Sodium (Docusate Sodium 100 Mg Capsule) 100 mg PO DAILY PRN PRN Reason: Constipation Empagliflozin (Empagliflozin 10 Mg Tablet) 10 mg PO DAILY [facility] Last Admin: 01/17/23 13:17 Dose: 10 mg Enoxaparin Sodium (Enoxaparin Sodium 40 Mg/0.4 Ml Syringe) 40 mg SUBCUT Q24H [facility] Last Admin: 01/17/23 08:10 Dose: 40 mg Furosemide (Furosemide 40 Mg/4 Ml Vial) 40 mg IVPUSH BID@0800,1700 [facility]; Protocol Last Admin: 01/17/23 17:13 Dose: 40 mg Glucose (Glucose Gel 15 Gm Gel..Gram.) 15 gm PO Q15M PRN; Protocol PRN Reason: per Hypoglycemia Standing Ord. Insulin Human Lispro (Insulin Lispro 100 Unit/Ml 3 Ml Vial) 0 unit SUBCUT QIDAS [facility]; Protocol Last Admin: 01/17/23 17:13 Dose: 2 unit Ondansetron HCl (Ondansetron Hcl 4 Mg/2 Ml Vial) 4 mg IVPUSH Q8H PRN PRN Reason: Nausea and Vomiting Sacubitril/Valsartan (Sacubitril/Valsartan 49/51 1 Tab Tablet) 1 tab PO BID [facility]; Protocol Home Medications Medication Instructions Recorded Confirmed Last Taken Type albuterol sulfate 90 mcg/actuation 2 puff inhalation Q4-6H PRN 01/17/23 01/17/23 Unknown History aerosol inhaler (Ventolin HFA) wheezing amlodipine 5 mg tablet 5 mg PO DAILY 01/17/23 01/17/23 Unknown History aspirin 81 mg tablet 81 mg PO DAILY 01/17/23 01/17/23 Unknown History atorvastatin 40 mg tablet 40 mg PO BEDTIME 01/17/23 01/17/23 Unknown History furosemide 40 mg tablet 40 mg PO DAILY 01/17/23 01/17/23 Unknown History glipizide 10 mg tablet, extended 10 mg PO DAILY 01/17/23 01/17/23 Unknown History release 24 hr insulin lispro 100 unit/mL 1 sliding scale dose subcut QIDACHS 01/17/23 01/17/23 Unknown History subcutaneous solution sacubitril 24 mg-valsartan 26 mg 1 tab PO BID 01/17/23 01/17/23 Unknown History tablet (Entresto) Physical Exam Vital Signs: Vital Signs: Last Vital Signs Temp 97.9 F 01/17/23 14:54 Pulse 92 01/17/23 17:15 Resp 20 01/17/23 14:54 BP 137/98 H 01/17/23 17:15 Pulse Ox 98 01/17/23 14:54 O2 Del Method Room Air 01/17/23 14:54 BMI result Body Mass Index 41.6 Const: General: cooperative, comfortable, no acute distress, alert and awake Nutritional Appearance: obese Orientation/consciousness: patient oriented x3 HEENT: Head: Yes normocephalic and Yes atraumatic Eyes: General: appearance normal, both eyes and all related structures Pupils: Equal, round and reactive pupils present Neck: Neck: Yes trachea midline, Yes supple and Yes JVD Resp: Effort & Inspection: normal respiratory effort Auscultation: clear to auscultation bilaterally, no rales, no wheezes and diminished lung sounds Cardio: Jugular venous distension: JVD Palpation: abnormal PMI displaced PMI Rate: regular rate Rhythm: regular rhythm Heart sounds: S1 normal heart sound present, S2 normal heart sound present, no click, no gallops, no murmurs and no rubs GI: Palpation (GI): Soft to palpation Auscultation: normal bowel sounds Skin: General skin exam: no rashes or lesions noted Neuro: Other: He is alert and oriented with normal intellectual functions. There is no dysphasia or dysarthria. His visual canchola are full to confrontation. No facial weakness. Tongue protrudes to the midline. He has a slight pronation drift of the left upper extremity and mild weakness in the left floor polisher graded at 4+/5. Proximal strength is 5 minus/5. Lower extremity strength 5 minus/5. He is areflexic. Gait was not tested. General: patient oriented x3 and no focal motor deficits Cranial nerves: Yes Equal, round and reactive pupils present Cognition (Neuro): normal cognition Extrem: Other: Right BKA No pedal edema General: Yes no clubbing, cyanosis or edema and Yes other (Right below-knee amputation) Results Labs 01/17/23 06:15 01/17/23 05:40 Labs: Short CBC 01/16/23 01/17/23 Range/Units 22:28 06:15 WBC 6.6 7.0 (4.8-10.8) X10*3/uL Hgb 11.1 L 10.5 L (14.0-18.0) g/dl Hct 35.9 L 33.6 L (42.0-52.0) % Plt Count 392 375 (160-400) X10*3/uL BMP 01/16/23 01/17/23 22:28 05:40 Sodium 141 138 Potassium 4.3 4.4 Chloride 109 H 111 H Carbon Dioxide 22 18 L BUN 24 H 23 H Creatinine 1.64 H 1.58 H Calcium 8.7 8.9 Assessment and Plan (1) Acute CVA (cerebrovascular accident): Status: Acute He has a complicated ischemic infarct in the right middle cerebral distribution, mostly parietal with mild left upper extremity weakness but no other deficits. His carotids are clean and therefore this suggests an embolic phenomena from the heart. He does have congestive heart failure and multiple stroke risk factors. Recommendations. He presented more than 24 hours after the onset of symptoms and was not a candidate for any intervention or TPA. Recommendations start PT, OT. Aspirin 81 mg a day. Echocardiogram, cardiac monitoring it for Ms. Cabrera. Control of blood pressure and sugar. (2) CHF exacerbation: Status: Acute Decompensated congestive in this middle-aged man with moderate to severe LV systolic dysfunction secondary to ischemic cardiomyopathy related to noncompliance with his medications and treatment plan. This is unfortunate for him. Discussed with him importance of managing his cardiovascular condition to help him live longer and avoid hospitalizations. Notice of medical therapy and follow-up plan need to be pursued. Unfortunately he now has acute CVA and need to evaluate for LV thrombus. Would dual limited echocardiogram with definity contrast to evaluate for LV thrombus as a cause of CVA which may require oral anticoagulation therapy. Continue workup as per Neurology and hospitalist team otherwise. Clinically still decompensated. Continue IV diuresis with Lasix. He needs better blood pressure control. Can continue amlodipine for now but eventually switch to all other neurohormonal modulation says to manage his blood pressure heart failure syndrome. Can increase Entresto to 49-51 mg b.i.d.. Add Coreg 3.125 mg b.i.d. to his regimen. Add Jardiance 10 mg to his regimen. Strict intake and output chart needs to be pursued. Continue monitor for electrolytes and renal function and diurese as tolerated. Overall prognosis is guarded due to his noncompliance. Eventually require ischemic workup although given that he has acute CVA will need to be postponed for at least 6 weeks. Will continue to follow with you Time Spent With Patient Time: Total time managing care of this patient today ____ minutes. Procedures Date of Service Date of Service: 01/17/23
[2023-01-17 20:20] LABS: Glucose, Whole Blood 218 mg/dL (60-115)
[2023-01-17] MEDS: Sacubitril/Valsartan 49/51 1 TAB TABLET PO (20:51)
[2023-01-18 03:29] VITALS: BP 141/77; PULSE 65; RESP 16; TEMP 36.8; O2SAT 97
[2023-01-18] MEDS: Enoxaparin Sodium 40 MG/0.4 ML SYRINGE SUBCUT (06:06)
[2023-01-18 07:32] VITALS: BP 121/75; PULSE 96; RESP 18; TEMP 36.6; O2SAT 96
[2023-01-18 07:39] LABS: B Type Natriuretic Peptide 912 pg/mL (<100)
[2023-01-18 07:41] LABS: Anion Gap 16 (12-20); Blood Urea Nitrogen 26 mg/dL (9-16); Calcium 8.8 mg/dL (8.4-10.2); Carbon Dioxide 25 mmol/L (22-29); Chloride 103 mmol/L (96-108); Cholesterol 150 mg/dL; Estimated Glomerular Filt Rate 38; Glucose Random 199 mg/dL (60-115); HDL Cholesterol 31 mg/dL; LDL Cholesterol Calculated 102 mg/dl; Magnesium 1.8 mg/dL (1.6-2.6); Potassium 4.1 mmol/L (3.3-5.1); Sodium 140 mmol/L (135-145); Triglycerides 85 mg/dL
[2023-01-18 07:47] LABS: Glucose, Whole Blood 266 mg/dL (60-115)
[2023-01-18] MEDS: Furosemide 40 MG/4 ML VIAL IVPUSH ×2 (08:51→17:07)
[2023-01-18] MEDS: carvediloL 3.125 MG TABLET PO (08:51)
[2023-01-18] MEDS: amLODIPine Besylate 5 MG TABLET PO (08:51)
[2023-01-18] MEDS: Sacubitril/Valsartan 49/51 1 TAB TABLET PO ×2 (08:51→20:37)
[2023-01-18] MEDS: Empagliflozin 10 MG TABLET PO (08:51)
[2023-01-18] MEDS: Aspirin Enteric Coated 81 MG TABLET.DR PO (08:51)
[2023-01-18] MEDS: Insulin Lispro 100 UNIT/ML 3 ML VIAL SUBCUT ×4 (08:51→20:38)
--- NOTE | 2023-01-18 09:23 | HO.PM.IMPN ---
Subjective Subjective Date of Service: 01/18/23 Interval History: f/u on stroke, chf and new afib Physical Exam Vital Signs: Vital Signs: Last Vital Signs Temp 97.8 F 01/18/23 07:32 Pulse 96 01/18/23 07:32 Resp 18 01/18/23 07:32 BP 121/75 01/18/23 07:32 Pulse Ox 96 01/18/23 07:32 O2 Del Method Room Air 01/18/23 07:32 BMI result Body Mass Index 41.6 Const: Other: General: AO X 3, no acute distress Resp: CTA bilateral CVS: S1,S2, iregular iregular, trace leg edema GI: +BS, NT, no distention Skin: No rash Neuro: motor grossly intact Psych: appropriate affect Objective Data Active Medications Acetaminophen (Acetaminophen 325 Mg Tablet) 650 mg PO Q6H PRN PRN Reason: Pain, Mild (Pain Scale 1-3) Albuterol Sulfate (Albuterol Sulfate 90 Mcg 8 Gm Inhaler) 2 puff INHALE RQ4H PRN PRN Reason: wheezing Albuterol/Ipratropium (Albuterol/Iprat 2.5/0.5mg 3 Ml Ampul.Neb) 3 ml INHALE RQ4H PRN PRN Reason: Shortness of Breath/Wheezing Amlodipine Besylate (Amlodipine Besylate 5 Mg Tablet) 5 mg PO DAILY [facility]; Protocol Last Admin: 01/18/23 08:51 Dose: 5 mg Documented By: TERENCE Aspirin (Aspirin Enteric Coated 81 Mg Tablet.) 81 mg PO DAILY [facility] Last Admin: 01/18/23 08:51 Dose: 81 mg Documented By: TERENCE Atorvastatin Calcium (Atorvastatin Calcium 80 Mg Tablet) 80 mg PO BEDTIME [facility] Last Admin: 01/17/23 20:52 Dose: 80 mg Documented By: TYSON Carvedilol (Carvedilol 3.125 Mg Tablet) 3.125 mg PO BID [facility]; Protocol Last Admin: 01/18/23 08:51 Dose: 3.125 mg Documented By: TERENCE Dextrose (Dextrose 50 % 25 Gm/50 Ml Syringe) 25 gm IVPUSH Q15M PRN; Protocol PRN Reason: per Hypoglycemia Standing Ord. Docusate Sodium (Docusate Sodium 100 Mg Capsule) 100 mg PO DAILY PRN PRN Reason: Constipation Empagliflozin (Empagliflozin 10 Mg Tablet) 10 mg PO DAILY [facility] Last Admin: 01/18/23 08:51 Dose: 10 mg Documented By: TERENCE Enoxaparin Sodium (Enoxaparin Sodium 40 Mg/0.4 Ml Syringe) 40 mg SUBCUT Q24H [facility] Last Admin: 01/18/23 06:06 Dose: 40 mg Documented By: RIYA Furosemide (Furosemide 40 Mg/4 Ml Vial) 40 mg IVPUSH BID@0800,1700 [facility]; Protocol Last Admin: 01/18/23 08:51 Dose: 40 mg Documented By: TERENCE Glucose (Glucose Gel 15 Gm Gel..Gram.) 15 gm PO Q15M PRN; Protocol PRN Reason: per Hypoglycemia Standing Ord. Insulin Human Lispro (Insulin Lispro 100 Unit/Ml 3 Ml Vial) 0 unit SUBCUT QIDACHS [facility]; Protocol Last Admin: 01/18/23 08:51 Dose: 6 unit Documented By: TERENCE Ondansetron HCl (Ondansetron Hcl 4 Mg/2 Ml Vial) 4 mg IVPUSH Q8H PRN PRN Reason: Nausea and Vomiting Sacubitril/Valsartan (Sacubitril/Valsartan 49/51 1 Tab Tablet) 1 tab PO BID [facility]; Protocol Last Admin: 01/18/23 08:51 Dose: 1 tab Documented By: TERENCE Labs 01/17/23 06:15 01/18/23 06:14 Labs: Laboratory Results - last 24 hr 01/17/23 01/17/23 01/17/23 05:40 12:01 16:26 Anion Gap Estim Creat Clear Calc Estimated GFR POC Glucose 158 H 183 H Random Glucose Calcium Magnesium 2.1 B-Natriuretic Peptide Triglycerides Cholesterol LDL Cholesterol, Calc HDL Cholesterol 01/17/23 01/18/23 01/18/23 20:17 06:14 06:14 Anion Gap 16 Estim Creat Clear Calc 57.0 Estimated GFR 38 POC Glucose 218 H Random Glucose 199 H Calcium 8.8 Magnesium 1.8 B-Natriuretic Peptide 912 H Triglycerides 85 Cholesterol 150 LDL Cholesterol, Calc 102 HDL Cholesterol 31 01/18/23 07:36 Anion Gap Estim Creat Clear Calc Estimated GFR POC Glucose 266 H Random Glucose Calcium Magnesium B-Natriuretic Peptide Triglycerides Cholesterol LDL Cholesterol, Calc HDL Cholesterol Assessment and Plan (1) Atrial fibrillation: Status: Acute (2) Acute CVA (cerebrovascular accident): Status: Acute (3) CHF exacerbation: Status: Acute Plan 52-year-old male past medical history of CAD as well as CHF, diabetes, hypertension presents the hospital with complaints of shortness of breath, left sided numbness and found to have acute CVA, HF exacerbation and new AFIB # acute CVA, CT head showed right parietal and temporal lobes, suspicious for areas of acute infarct. He could NOT tolerate MRI. Normal carotid of neck. CVA related to AFIB, will get echo as well. Seen by Neuro. Starting Eliquis, ASA, statin, PT/OT. Med compliace discuss for BP. #New AFIB-- Seen by Dr. Rodriguez. aramis [place] baseline Coreg, starting Eliquis # Acute on chronic systolic heart failure.. likely from non compliance and afib. Echo 01/17---? Severe LV systolic dysfunction with LVEF of 25-30% with grade 3 diastolic dysfunction without evidence of LV thrombus with ? ? regional wall motion abnormality consistent with ischemic?cardiomyopathy. Negative 4L thus far. -Continue IV Lasix for 1 more day, continue Entresto, Coreg and Jardiance ? # diabetes-- - patient noncompliant with any of his antihyperglycemics -SSI for now # hypertension--controlled, continue Coreg (if needed increase dose), entresto # CAD - continue aspirin, statin, Entresto, DVT prophylaxis: Eliquis Change status to inpatient for acute stroke, new Afib and exacerbation of CFHF Time Spent With Patient Time: Total time managing care of this patient today ____ minutes. Quality Stroke Does the patient have a stroke diagnosis?: No VTE Prior VTE?: No VTE Risk Level:: Medical - moderate - high VTE Device Contraindication: Treatment Not Indicated VTE Drug Contraindication: N/A - Med Ordered
--- NOTE | 2023-01-18 09:23 | PM.PNCARD ---
Subjective Subjective Date of Service: 01/18/23 Principal diagnosis: CHF, atrial fibrillation, CVA Interval history: Patient developed atrial fibrillation last evening. This is new finding for him. He denies any symptoms related to it. He says he is breathing is better. Echocardiogram shows LVEF of 25-30% further worsening. Patient has diuresed about 4 L. BNP still elevated in 900 range. Blood pressure is much improved. Creatinine is slightly increased to 1.88 Review of Systems Constitutional: Reports no additional constitutional complaints Cardiovascular: Denies chest pain, Denies leg edema, Denies lightheadedness, Denies palpitations and Reports dyspnea (Improved) Respiratory: Reports dyspnea (Improved) Gastrointestinal: Reports no additional gastrointestinal complaints Musculoskeletal: Reports numbness (Numbness improving) Reports numbness (Numbness improving) Endocrine: Denies palpitations Physical Exam Vital Signs: Last Vital Signs Temp 97.8 F 01/18/23 07:32 Pulse 96 01/18/23 07:32 Resp 18 01/18/23 07:32 BP 121/75 01/18/23 07:32 Pulse Ox 96 01/18/23 07:32 O2 Del Method Room Air 01/18/23 07:32 BMI result Body Mass Index 41.6 Const General: cooperative, comfortable, alert and awake Nutritional Appearance: obese Orientation/consciousness: patient oriented x3 Neck Neck: Yes trachea midline, Yes supple and Yes JVD Resp Effort & Inspection: normal respiratory effort Auscultation: no rales, no wheezes and breath sounds absent on the right (Base) Cardio Jugular venous distension: JVD Palpation: abnormal PMI displaced PMI Rhythm: abnormal rhythm irregularly irregular Heart sounds: S1 normal heart sound present, S2 normal heart sound present, no click, no gallops, no murmurs and no rubs GI Auscultation: normal bowel sounds Skin General skin exam: no rashes or lesions noted Neuro General: patient oriented x3 and no focal motor deficits Extrem General: Yes no clubbing, cyanosis or edema and Yes other (Right below-knee amputation) Objective Labs and Meds 01/17/23 06:15 01/18/23 06:14 Lab results: Laboratory Results - last 24 hr 01/17/23 01/17/23 01/17/23 05:40 12:01 16:26 Sodium Potassium Chloride Carbon Dioxide Anion Gap BUN Creatinine Estim Creat Clear Calc Estimated GFR POC Glucose 158 H 183 H Random Glucose Calcium Magnesium 2.1 B-Natriuretic Peptide Triglycerides Cholesterol LDL Cholesterol, Calc HDL Cholesterol 01/17/23 01/18/23 01/18/23 20:17 06:14 06:14 Sodium 140 Potassium 4.1 Chloride 103 Carbon Dioxide 25 Anion Gap 16 BUN 26 H Creatinine 1.88 H Estim Creat Clear Calc 57.0 Estimated GFR 38 POC Glucose 218 H Random Glucose 199 H Calcium 8.8 Magnesium 1.8 B-Natriuretic Peptide 912 H Triglycerides 85 Cholesterol 150 LDL Cholesterol, Calc 102 HDL Cholesterol 31 01/18/23 07:36 Sodium Potassium Chloride Carbon Dioxide Anion Gap BUN Creatinine Estim Creat Clear Calc Estimated GFR POC Glucose 266 H Random Glucose Calcium Magnesium B-Natriuretic Peptide Triglycerides Cholesterol LDL Cholesterol, Calc HDL Cholesterol Imaging Radiologist's impression: Impressions Carotid Doppler Study 01/17/23 09:47 IMPRESSION: 1. RIGHT: Normal right internal carotid artery without atherosclerotic plaque or hemodynamically significant stenosis. 2. LEFT: Normal left internal carotid artery without atherosclerotic plaque or hemodynamically significant stenosis. Brain MRI 01/17/23 13:00 IMPRESSION: The patient was unable to tolerate this examination and it was terminated prematurely. This examination is incomplete and therefore limited. 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 No intracranial mass effect or hydrocephalus. Progress Note: A&P Assessment and plan (1) CHF exacerbation: Status: Acute Assessment and Plan: Patient admitted with CHF exacerbation setting of stroke due to noncompliance in the setting of severe ischemic cardiomyopathy. Has developed a new stroke which is limited cardiovascular evaluation with invasive cardiac catheterization. This will need to be postponed for 6 weeks. Continue maximize neurohormonal modulation. Continue Entresto at current dose. Increase Coreg to 6.25 mg b.i.d. and discontinue amlodipine therapy. Will continue maximize carvedilol therapy. Continue Jardiance. Continue IV diuresis for 1 more day. Continue monitor BMP and BNP tomorrow. If he is doing better most likely be able to be discharged tomorrow. CHF education to be provided. Importance of compliance with medication was discussed in details including with his at bedside. (2) Atrial fibrillation: Status: Acute Assessment and Plan: Atrial fibrillation, new onset. This explains of stroke. He does not have LV thrombus. He will need to be on oral anticoagulation with Eliquis, 5 mg b.i.d.. Importance of blood thinners were discussed at high risk for recurrent stroke. Continue maximize carvedilol therapy as above. Will continue to follow with him Time Spent With Patient Time: Total time managing care of this patient today ____ minutes. Progress Note: Quality Stroke Does the patient have a stroke diagnosis?: No Procedures Date of Service Date of Service: 01/18/23
[2023-01-18] MEDS: Apixaban 5 MG TABLET PO ×2 (09:39→20:37)
[2023-01-18 11:40] VITALS: BP 135/87; PULSE 86; RESP 18; TEMP 36.4; O2SAT 95
[2023-01-18 11:52] LABS: Glucose, Whole Blood 283 mg/dL (60-115)
--- NOTE | 2023-01-18 12:14 | MHC.STROKE ---
I MET WITH THE PATIENT TODAY TO REVIEW HIS MRI SCAN AND I PROVIDED AN IMAGE OF THE STROKE LOCATION AND WE DISCUSSED THE SYMPTOMS ASSOCIATED IN THAT LOCATION. WE REVIEWED ALL OF HIS INDIVIDUAL RISK FACTORS AND DISCUSSED PREVENTING FUTURE STROKES. I ANSWERED HIS QUESTIONS. THE WAS PRESENT AND HE HAS AGREED WITH THE PLAN OF CARE. I ALSO REVIEWED THIS WITH THE PASCUAL FRIEND.
[2023-01-18 15:35] VITALS: BP 116/81; PULSE 99; RESP 20; TEMP 36.7; O2SAT 96
[2023-01-18] MEDS: Albuterol/Iprat 2.5/0.5MG 3 ML AMPUL.NEB INHALE (15:56)
[2023-01-18 15:57] VITALS: PULSE 111; RESP 18; O2SAT 97
[2023-01-18 16:24] LABS: Glucose, Whole Blood 208 mg/dL (60-115)
[2023-01-18 19:22] VITALS: BP 104/65; PULSE 51; RESP 18; TEMP 36.6; O2SAT 95
[2023-01-18 19:54] LABS: Glucose, Whole Blood 200 mg/dL (60-115)
[2023-01-18] MEDS: Atorvastatin Calcium 80 MG TABLET PO (20:37)
[2023-01-19] VITALS (8 sets, daily range): BP systolic 104–148; BP diastolic 61–78; PULSE 51–96; RESP 18–20; TEMP 36.1–36.8; O2SAT 91–98
[2023-01-19 07:38] LABS: Glucose, Whole Blood 147 mg/dL (60-115)
[2023-01-19] MEDS: carvediloL 3.125 MG TABLET 6.25 MG PO (08:55)
[2023-01-19] MEDS: Apixaban 5 MG TABLET PO ×2 (08:55→22:09)
[2023-01-19] MEDS: Sacubitril/Valsartan 49/51 1 TAB TABLET PO ×2 (08:56→22:08)
[2023-01-19] MEDS: Aspirin Enteric Coated 81 MG TABLET.DR PO (08:56)
[2023-01-19] MEDS: Empagliflozin 10 MG TABLET PO (08:56)
[2023-01-19] MEDS: Furosemide 40 MG/4 ML VIAL IVPUSH (08:58)
--- NOTE | 2023-01-19 09:45 | MHC.CM.PN ---
Broad SNF search continues; referrals have been updated. CM awaits a LTC SNF bed offer. CM will follow.
--- NOTE | 2023-01-19 10:22 | P.PNCA_ITS ---
Subjective Subjective Date of Service: 01/19/23 Principal diagnosis: CHF, atrial fibrillation, CVA Interval history: Patient says his breathing is lot better. He wants to go home. However noted to be in AFib with rapid ventricular response. Denies any palpitations, lightheadedness, syncope. Has difficulty finding proper words Review of Systems Constitutional: Reports no additional constitutional complaints Cardiovascular: Reports no additional cardiovascular complaints Respiratory: Reports no additional respiratory complaints Reports Abnormal speech present Physical Exam Vital Signs: Last Vital Signs Temp 97.2 F 01/19/23 07:27 Pulse 96 01/19/23 07:27 Resp 18 01/19/23 07:27 BP 148/78 H 01/19/23 07:27 Pulse Ox 95 01/19/23 07:27 O2 Del Method Room Air 01/19/23 07:27 BMI result Body Mass Index 41.6 Const General: cooperative, comfortable, alert and awake Nutritional Appearance: obese Orientation/consciousness: patient oriented x3 Neck Neck: Yes trachea midline, Yes supple and Yes JVD Resp Effort & Inspection: normal respiratory effort Auscultation: no rales, no wheezes and breath sounds absent on the right (Base) Cardio Jugular venous distension: JVD Palpation: abnormal PMI displaced PMI Rate: tachycardic Rhythm: abnormal rhythm irregularly irregular Heart sounds: S1 normal heart sound present, S2 normal heart sound present, no click, no gallops, no murmurs and no rubs GI Auscultation: normal bowel sounds Skin General skin exam: no rashes or lesions noted Neuro General: patient oriented x3 and no focal motor deficits Speech: Abnormal speech present Extrem General: Yes no clubbing, cyanosis or edema and Yes other (Right below-knee amputation) Objective Labs and Meds 01/17/23 06:15 01/18/23 06:14 Lab results: Laboratory Results - last 24 hr 01/18/23 01/18/23 01/18/23 11:44 16:19 19:50 POC Glucose 283 H 208 H 200 H 01/19/23 07:29 POC Glucose 147 H Progress Note: A&P Assessment and plan (1) Atrial fibrillation: Status: Acute Assessment and Plan: New onset atrial fibrillation rapid ventricular response most likely due to underlying severe LV systolic dysfunction multiple risk factors. Rate remains difficult to control. Would give digoxin 0.25 mg IV push q.6 x3 doses. Increase carvedilol to 12.5 mg b.i.d.. Not ready for discharge till rate is better controlled. Continue full oral anticoagulation with Eliquis. (2) CHF exacerbation: Status: Acute Assessment and Plan: Acute CHF exacerbation with severe LV systolic dysfunction secondary to ischemic cardiomyopathy recent stroke. Continue medical management. Continue up titrate carvedilol. Continue Entresto. Can switch to p.o. Bumex 2 mg daily and provide CHF education to take additional diuretics as needed at home. Continue Geraldine ce. Will hold off on Aldactone due to elevated creatinine. Importance of compliance with medication was discussed. Will eventually require ischemic workup with cardiac catheterization after 6 weeks given his recent stroke. Will continue to follow with you Time Spent With Patient Time: Total time managing care of this patient today ____ minutes. Progress Note: Quality Stroke Does the patient have a stroke diagnosis?: No Procedures Date of Service Date of Service: 01/19/23
--- NOTE | 2023-01-19 10:26 | MHC.CM.PN ---
Per ROUNDS discussion, Patient's IV Lasix was just dc'd; PT is recommending STR and Patient has bed offers. MD to speak with Patient to encourage STR recommendation(Patient wants to go home). CM will follow.
[2023-01-19 11:37] LABS: Glucose, Whole Blood 228 mg/dL (60-115)
[2023-01-19] MEDS: Insulin Lispro 100 UNIT/ML 3 ML VIAL SUBCUT ×3 (12:09→22:10)
--- NOTE | 2023-01-19 14:05 | HO.PM.IMPN ---
Subjective Subjective Date of Service: 01/19/23 Interval History: Complaining of intermittent chest pressure, worse in bed changing position but symptoms get better with upper extremity stretching exercises with PT, denies chest pain now, no shortness of breath continued to have left hand weakness, no numbness, denies headache, no lightheadedness, no worsening neuro symptoms, no fevers, no chills, no cough. Review of Systems All other system reviewed and negative Physical Exam Vital Signs: Vital Signs: Last Vital Signs Temp 97.6 F 01/19/23 11:30 Pulse 80 01/19/23 11:30 Resp 18 01/19/23 11:30 BP 136/75 01/19/23 11:30 Pulse Ox 93 01/19/23 11:30 O2 Del Method Room Air 01/19/23 11:30 BMI result Body Mass Index 41.6 Const: Other: General? awake alert x3, in no acute distress.? Neck supple, no JVD. CVS? regular rate rhythm, Respiratory lungs clear to auscultation, no respiratory distress, no wheeze, no rhonchi. Gastrointestinal abdomen soft, nontender, bowel sounds audible,? no guarding , no rigidity. Extremities? right BKA, left no edema. Neuro alert oriented x3, no pronator drift, normal strength left hand. Skin no rash. psych appropriate affect Objective Data Active Medications Acetaminophen (Acetaminophen 325 Mg Tablet) 650 mg PO Q6H PRN PRN Reason: Pain, Mild (Pain Scale 1-3) Albuterol Sulfate (Albuterol Sulfate 90 Mcg 8 Gm Inhaler) 2 puff INHALE RQ4H PRN PRN Reason: wheezing Albuterol/Ipratropium (Albuterol/Iprat 2.5/0.5mg 3 Ml Ampul.Neb) 3 ml INHALE RQ4H PRN PRN Reason: Shortness of Breath/Wheezing Last Admin: 01/18/23 15:56 Dose: 3 ml Documented By: CAMILO Apixaban (Apixaban 5 Mg Tablet) 5 mg PO BID [facility] Last Admin: 01/19/23 08:55 Dose: 5 mg Documented By: SHARRI Aspirin (Aspirin Enteric Coated 81 Mg Tablet.) 81 mg PO DAILY [facility] Last Admin: 01/19/23 08:56 Dose: 81 mg Documented By: SHARRI Atorvastatin Calcium (Atorvastatin Calcium 80 Mg Tablet) 80 mg PO BEDTIME [facility] Last Admin: 01/18/23 20:37 Dose: 80 mg Documented By: MONET Carvedilol (Carvedilol 3.125 Mg Tablet) 6.25 mg PO BID [facility]; Protocol Last Admin: 01/19/23 08:55 Dose: 6.25 mg Documented By: SHARRI Dextrose (Dextrose 50 % 25 Gm/50 Ml Syringe) 25 gm IVPUSH Q15M PRN; Protocol PRN Reason: per Hypoglycemia Standing Ord. Digoxin (Digoxin 0.5 Mg/2 Ml Ampul) 0.25 mg IVPUSH Q6H [facility] Stop: 01/20/23 02:01 Docusate Sodium (Docusate Sodium 100 Mg Capsule) 100 mg PO DAILY PRN PRN Reason: Constipation Empagliflozin (Empagliflozin 10 Mg Tablet) 10 mg PO DAILY [facility] Last Admin: 01/19/23 08:56 Dose: 10 mg Documented By: SHARRI Glucose (Glucose Gel 15 Gm Gel..Gram.) 15 gm PO Q15M PRN; Protocol PRN Reason: per Hypoglycemia Standing Ord. Insulin Glargine (Insulin Glargine,Hum.Rec.Anlog 100 Unit/Ml 10 Ml Vial) 10 unit SUBCUT BEDTIME [facility] Insulin Human Lispro (Insulin Lispro 100 Unit/Ml 3 Ml Vial) 0 unit SUBCUT QIDACHS [facility]; Protocol Last Admin: 01/19/23 12:09 Dose: 4 unit Documented By: SHARRI Ondansetron HCl (Ondansetron Hcl 4 Mg/2 Ml Vial) 4 mg IVPUSH Q8H PRN PRN Reason: Nausea and Vomiting Sacubitril/Valsartan (Sacubitril/Valsartan 49/51 1 Tab Tablet) 1 tab PO BID [facility]; Protocol Last Admin: 01/19/23 08:56 Dose: 1 tab Documented By: SHARRI Labs 01/17/23 06:15 01/18/23 06:14 Labs: Laboratory Results - last 24 hr 01/18/23 01/18/23 01/19/23 16:19 19:50 07:29 POC Glucose 208 H 200 H 147 H 01/19/23 11:32 POC Glucose 228 H Assessment and Plan (1) Atrial fibrillation: Status: Acute (2) Acute CVA (cerebrovascular accident): Status: Acute (3) CHF exacerbation: Status: Acute Plan 52-year-old male past medical history of CAD as well as CHF, diabetes, hypertension presents the hospital with complaints of shortness of breath, left sided numbness and found to have acute CVA, HF exacerbation and new AFIB # acute CVA, CT head showed regions of loss of klein-white matter differentiation suspicious for acute infarction right parietal and temporal lobes, MRI showed acute right middle cerebral artery territory infarction, although patient unable to tolerate the examination and it was terminated prematurely, Normal carotid of neck. CVA related to AFIB, echo showed EF 25-30% with evidence of regional wall motion abnormality and grade 3 severe diastolic dysfunction no evidence of thrombus in the left ventricle, Seen by Neuro, continue Eliquis, ASA, statin, seen by PT they recommend short-term rehab #New AFIB--will increase dose of Coreg give 3 doses of digoxin, continue Eliquis, case discussed with Dr. Boyd. # Acute on chronic systolic heart failure.. likely from non compliance and afib. Echo 01/17---? Severe LV systolic dysfunction with LVEF of 25-30% with grade 3 diastolic dysfunction without evidence of LV thrombus with ? ? regional wall motion abnormality consistent with ischemic?cardiomyopathy. Negative> 4L thus far. Will DC IV Lasix and placed on Bumex 2 mg daily, continue Entresto, Coreg and Jardiance, follow BMP ? # diabetes-- - patient noncompliant with any of his antihyperglycemics, noted to have elevated blood sugars will add Lantus 10 units and continue insulin sliding scale and diabetic diet # hypertension--controlled, continue Coreg will increase dose to 12.5 mg b.i.d., continue entresto # CAD - continue aspirin, statin, Entresto, strongly recommended compliance with all medications and follow-up with physicians DVT prophylaxis: Abisai Will need continued inpatient hospitalization for acute stroke, new Afib and exacerbation of CFHF requiring medication adjustment. Time Spent With Patient Time: Total time managing care of this patient today ____ minutes. Quality Stroke Does the patient have a stroke diagnosis?: No VTE Prior VTE?: No VTE Risk Level:: Medical - moderate - high VTE Device Contraindication: Treatment Not Indicated VTE Drug Contraindication: N/A - Med Ordered
[2023-01-19] MEDS: Digoxin 0.5 MG/2 ML AMPUL 0.25 MG IVPUSH ×2 (14:37→22:07)
[2023-01-19 16:35] LABS: Glucose, Whole Blood 287 mg/dL (60-115)
[2023-01-19 20:51] LABS: Glucose, Whole Blood 206 mg/dL (60-115)
[2023-01-19] MEDS: Atorvastatin Calcium 80 MG TABLET PO (22:08)
[2023-01-19] MEDS: carvediloL 12.5 MG TABLET PO (22:08)
[2023-01-19] MEDS: Insulin Glargine,Hum.rec.anlog 100 UNIT/ML 10 ML VIAL 10 UNIT SUBCUT (22:13)
[2023-01-20] MEDS: Digoxin 0.5 MG/2 ML AMPUL 0.25 MG IVPUSH (03:39)
[2023-01-20 03:42] VITALS: BP 119/97; PULSE 95; RESP 16; TEMP 36.3; O2SAT 97
[2023-01-20 07:37] VITALS: BP 136/75; PULSE 74; RESP 18; TEMP 36.3; O2SAT 96
[2023-01-20 07:56] LABS: Glucose, Whole Blood 196 mg/dL (60-115)
[2023-01-20] MEDS: Insulin Lispro 100 UNIT/ML 3 ML VIAL SUBCUT ×2 (08:35→13:26)
[2023-01-20] MEDS: Aspirin Enteric Coated 81 MG TABLET.DR PO (08:36)
[2023-01-20] MEDS: Sacubitril/Valsartan 49/51 1 TAB TABLET PO (08:36)
[2023-01-20] MEDS: Empagliflozin 10 MG TABLET PO (08:36)
[2023-01-20] MEDS: Apixaban 5 MG TABLET PO (08:36)
[2023-01-20] MEDS: carvediloL 12.5 MG TABLET PO (08:36)
[2023-01-20 09:10] LABS: Anion Gap 12 (12-20); Blood Urea Nitrogen 33 mg/dL (9-16); Calcium 8.5 mg/dL (8.4-10.2); Carbon Dioxide 30 mmol/L (22-29); Chloride 103 mmol/L (96-108); Creatinine Clr Calc Pharmacy 55.6; Estimated Glomerular Filt Rate 37; Glucose Random 226 mg/dL (60-115); Potassium 4.1 mmol/L (3.3-5.1); Sodium 141 mmol/L (135-145)
[2023-01-20 09:19] LABS: B Type Natriuretic Peptide 1044 pg/mL (<100)
--- NOTE | 2023-01-20 10:39 | PM.PNCARD ---
Subjective Subjective Date of Service: 01/20/23 Principal diagnosis: CHF, atrial fibrillation, CVA Interval history: Patient is feeling better says. He insist on wanting to go home. Heart rate is better controlled. Blood pressure is better controlled. Total negative balance of 6 L charted. Review of Systems Review of Systems Yes all other systems are reviewed and are negative Reports Abnormal speech present Physical Exam Vital Signs: Last Vital Signs Temp 97.3 F 01/20/23 07:37 Pulse 74 01/20/23 07:37 Resp 18 01/20/23 07:37 BP 136/75 01/20/23 07:37 Pulse Ox 96 01/20/23 07:37 O2 Del Method Room Air 01/20/23 07:37 BMI result Body Mass Index 41.6 Const General: cooperative, comfortable, alert and awake Nutritional Appearance: obese Orientation/consciousness: patient oriented x3 Neck Neck: Yes trachea midline, Yes supple and Yes JVD Resp Effort & Inspection: normal respiratory effort Auscultation: no rales, no wheezes and breath sounds absent on the right (Base) Cardio Jugular venous distension: JVD Palpation: abnormal PMI displaced PMI Rate: regular rate Rhythm: abnormal rhythm irregularly irregular Heart sounds: S1 normal heart sound present, S2 normal heart sound present, no click, no gallops, no murmurs and no rubs GI Auscultation: normal bowel sounds Skin General skin exam: no rashes or lesions noted Neuro General: patient oriented x3 and no focal motor deficits Speech: Abnormal speech present Extrem General: Yes no clubbing, cyanosis or edema and Yes other (Right below-knee amputation) Objective Labs and Meds 01/17/23 06:15 01/20/23 08:25 Lab results: Laboratory Results - last 24 hr 01/19/23 01/19/23 01/19/23 11:32 16:23 20:48 Sodium Potassium Chloride Carbon Dioxide Anion Gap BUN Creatinine Estim Creat Clear Calc Estimated GFR POC Glucose 228 H 287 H 206 H Random Glucose Calcium B-Natriuretic Peptide 01/20/23 01/20/23 01/20/23 07:47 08:25 08:25 Sodium 141 Potassium 4.1 Chloride 103 Carbon Dioxide 30 H Anion Gap 12 BUN 33 H Creatinine 1.93 H Estim Creat Clear Calc 55.6 Estimated GFR 37 POC Glucose 196 H Random Glucose 226 H Calcium 8.5 B-Natriuretic Peptide 1044 H Progress Note: A&P Assessment and plan (1) CHF exacerbation: Status: Acute Assessment and Plan: CHF exacerbation much better controlled and improved with medical therapy. Importance of aggressive medical therapy was discussed. Agree with Bumex 2 mg daily. Follow-up BMP and BNP in 1 weeks time. Continue neurohormonal modulation with Entresto, carvedilol as well as Jardiance. Daily weight monitoring avoidance of salt loading was discussed. He understands agrees. Will require ischemic workup with cardiac catheterization however this will need to be deferred for about 6 weeks since his stroke. (2) Atrial fibrillation: Status: Acute Assessment and Plan: Atrial fibrillation new onset, most likely cause of his CVA. Agree with Eliquis 5 mg b.i.d.. Will follow up with Holter monitor in 2 weeks time. Follow up in the clinic in 4 weeks time. Decision for rhythm control at that point in time will be pursued. Will follow up in the clinic in 4 weeks time. Time Spent With Patient Time: Total time managing care of this patient today ____ minutes. Progress Note: Quality Stroke Does the patient have a stroke diagnosis?: No Procedures Date of Service Date of Service: 01/20/23
[2023-01-20 11:13] VITALS: BP 128/79; PULSE 67; RESP 18; TEMP 36.4; O2SAT 98
[2023-01-20 11:27] LABS: Glucose, Whole Blood 153 mg/dL (60-115)
--- NOTE | 2023-01-20 12:02 | P.DS_ITS ---
DS: Providers Provider Date of Service: 01/20/23 Date of admission: 01/17/23 09:08 Primary care physician: Gabe Chisholm MD Consults: 01/17/23 02:54 Consult to Neurology Routine Consulting Provider: [facility] Reason for consultation: cva Has provider been notified: No 01/17/23 07:53 Consult to Cardiology Routine Consulting Provider: [facility] Reason for consultation: ADHF, signed out AMA from [facility] 01/05 DS: Diagnosis Discharge Diagnosis (1) CHF exacerbation: Status: Acute (2) Atrial fibrillation: Status: Acute DS: Summary Hospital Course Hospital Course: Date of Service: 01/17/23 Chief Complaint: SOB This is a 52-year-old male past medical history of diabetes, hypertension, hyperlipidemia, right BKA, diabetic neuropathy, recently diagnosed CHF, CAD, and SHI who presents the hospital with complaints of shortness of breath.? Patient was discharged from the hospital on 01/05 after management of acute CHF and elevated troponins, to [facility].? Patient states that he left AMA due to his unhappiness with staff, he comes in today complaining of shortness of breath, and midsternal chest discomfort as well as numbness and tingling in his left side for the past 2 days.? Patient otherwise states that he has not taken any of his discharge medications including furosemide statins or antihyperglycemics and in general has not been compliant with his medication or medical care.? Patient is complaining of orthopnea, PND, mild cough, no sputum production.? No fever or chills. Patient denies any headache, no change in vision, no urinary symptoms and no lower extremity edema.? All other review of systems negative On arrival to the ED patient slightly hypertensive but otherwise vitals stable Labs are significant for WBC count of 6.6 hemoglobin of 11.1, hematocrit of 35.9, creatinine of 1.64 which is around his baseline, troponin of 47 decreased to 46.1, BNP of 914 Chest x-ray showed persistent patchy bibasilar opacities right greater than left, which reflect multifocal consolidation, with possible right pleural effusion and slightly prominence of the central vasculature in the right lung Head CT showed regional loss of klein-white differentiation in the right parietal and temporal lobes, suspicion for acute infarct. Hospital course: 52-year-old male past medical history of CAD as well as CHF, diabetes, hypertension presents the hospital with complaints of shortness of breath, left sided numbness and found to have acute CVA, HF exacerbation and new AFIB # acute CVA, CT head showed regions of loss?of klein-white matter differentiation suspicious for?acute infarction?right parietal and temporal lobes,??MRI showed acute right middle cerebral artery territory infarction, although patient unable to tolerate the examination and it was terminated prematurely,?Normal carotid of neck. likley CVA related to AFIB, echo showed EF 25-30% with evidence of regional wall motion abnormality and grade 3 severe diastolic dysfunction, no evidence of thrombus in the left ventricle, Seen by Neuro, they agree with medical management, recommend it to continue Eliquis, ASA, statin, seen by PT they recommend short-term rehab, however patient declined rehab and now being discharged home with VNA services. #New AFIB--dose of Coreg increased to 12.5 mg twice daily patient treated with digoxin currently in atrial fibrillation with stable ventricular rate started on Eliquis 5 mg b.i.d. recommend outpatient follow-up with Dr. Boyd. # Acute on chronic systolic and diastolic heart failure.. likely from non compliance and afib.? Echo 01/17---? Severe LV systolic dysfunction with LVEF of 25-30% with grade 3 diastolic dysfunction without evidence of LV thrombus with ? ? regional wall motion abnormality consistent with ischemic?cardiomyopathy.? Treated with IV Lasix in house now being discharged on 2 mg of Bumex, Entresto, Coreg and Jardiance, strongly recommend to take all home medications as prescribed and to have close outpatient follow-up with Cardiology. ?To # diabetes-- - patient noncompliant with any of his antihyperglycemics, noted to have elevated blood sugars added Lantus 10 units,continue glipizide , insulin sliding scale and diabetic diet, also placed on Jardiance for CHF # hypertension--controlled, continue Coreg 12.5 mg b.i.d., and entresto. # CAD - continue aspirin, statin, Entresto, strongly recommended compliance with all medications and follow-up with physicians. Time Spent with Patient Time attestation: Total time managing care of this patient today ____ minutes. Discharge coordination time: Greater than 30 minutes Quality: Safe Use of Opioids Does Pt have an Active Cancer Diagnosis on the Problem List?: No Quality: Stroke Does the patient have a stroke diagnosis?: No Physical Exam Vital Signs: Vital Signs: Last Vital Signs Temp 97.6 F 01/20/23 11:13 Pulse 67 01/20/23 11:13 Resp 18 01/20/23 11:13 BP 128/79 01/20/23 11:13 Pulse Ox 98 01/20/23 11:13 O2 Del Method Room Air 01/20/23 11:13 BMI result Body Mass Index 41.6 Const: Other: General? awake alert x3, in no acute distress.? Neck supple, no JVD. CVS? regular rate rhythm, Respiratory lungs clear to auscultation, no respiratory distress, no wheeze, no rhonchi. Gastrointestinal abdomen soft, non tender, bowel sounds audible,? no guarding , no rigidity. Extremities? right BKA, left no edema. Neuro alert oriented x3, no pronator drift, normal strength left hand. Skin no rash. psych appropriate affect DS: Data Data Completed and Pending Completed studies during hospitalization [Text1]: Procedures Detachment at Left 1st Toe, Complete, Open Approach (08/12/20) Detachment at Left 2nd Toe, Complete, Open Approach (08/12/20) Detachment at Right Lower Leg, Mid, Open Approach (06/27/22) Excision of Left Foot Subcutaneous Tissue and Fascia, Open Approach (05/26/20) Excision of Right Foot Subcutaneous Tissue and Fascia, Open Approach (06/27/22) Extraction of Left Foot Skin, External Approach (05/05/20) Insertion of Infusion Device into Superior Vena Cava, Percutaneous Approach (05/05/20) Introduction of Anesthetic Agent into Peripheral Nerves and Plexi, Percutaneous Approach (06/27/22) Ultrasonography of Superior Vena Cava, Guidance (05/05/20) Labs on day of discharge: Laboratory Results - last 24 hr 01/19/23 01/19/23 01/20/23 16:23 20:48 07:47 Sodium Potassium Chloride Carbon Dioxide Anion Gap BUN Creatinine Estim Creat Clear Calc Estimated GFR POC Glucose 287 H 206 H 196 H Random Glucose Calcium B-Natriuretic Peptide 01/20/23 01/20/23 01/20/23 08:25 08:25 11:18 Sodium 141 Potassium 4.1 Chloride 103 Carbon Dioxide 30 H Anion Gap 12 BUN 33 H Creatinine 1.93 H Estim Creat Clear Calc 55.6 Estimated GFR 37 POC Glucose 153 H Random Glucose 226 H Calcium 8.5 B-Natriuretic Peptide 1044 H Discharge Plan Discharge Anticipated Discharge Date/Time: 01/20/23 11:41 Patient Disposition: Home Health Service Discharge Diagnosis: Acute CVA New onset atrial fibrillation Acute on chronic congestive heart failure with low EF and diastolic dysfunction Referrals: Gabe Chihsolm MD [Primary Care Provider] - 1 Week Discharge Medications: New carvedilol 12.5 mg Tablet 12.5 mg PO BID Qty: 60 0RF Protocol: Hold for SBP/HR < HOLD for SBP < : 90 HOLD for HR < : 60 Entresto 49-51 mg Tablet 1 tab PO BID Qty: 60 0RF Protocol: Hold for SBP< HOLD for SBP < : 90 aspirin 81 mg Tablet,Delayed Release (Dr/Ec) 81 mg PO DAILY Qty: 30 0RF Jardiance 10 mg Tablet 10 mg PO DAILY Qty: 30 0RF atorvastatin 80 mg Tablet 80 mg PO BEDTIME Qty: 30 0RF Eliquis 5 mg Tablet 5 mg PO BID Qty: 60 0RF insulin glargine [Lantus U-100 Insulin] 100 unit/mL Solution 10 unit subcut BEDTIME Qty: 10 0RF Continued glipizide 10 mg tablet extended release 24hr 10 mg PO DAILY albuterol sulfate [Ventolin HFA] 90 mcg/actuation HFA aerosol inhaler 2 puff inhalation Q4-6H PRN (Reason: wheezing) insulin lispro 100 unit/mL Solution 1 sliding scale dose SUBCUT QIDACHS Rx Instructions: Protocol: Insulin Correction Scale Less than or equal to 110 ---- Give (units): 0 111 to 150 Give (units): 0 151 to 200 Give (units): 2 201 to 250 Give (units): 4 251 to 300 Give (units): 6 301 to 350 Give (units): 8 Greater than 350 Give (units): 10 Call MD if Blood Glucose > : 350 Discontinued amlodipine 5 mg tablet 5 mg PO DAILY furosemide 40 mg Tablet 40 mg PO DAILY atorvastatin 40 mg Tablet 40 mg PO BEDTIME aspirin 81 mg Tablet 81 mg PO DAILY Entresto 24-26 mg Tablet 1 tab PO BID Discharge Orders: Discharge Order (Routine); Ordered 01/20/23 Ordered By: Gabriel Rossi Diet: Diabetic diet Activity on Discharge: As tolerated Stand Alone Forms: Patient Portal Discharge page Care Plan Goals: Acute CVA recommended short-term rehab to maximize safety and function however patient declined rehab therefore being discharged home with VNA services. New onset atrial fibrillation take Coreg and Eliquis as prescribed For acute on chronic systolic heart failure started on Bumex 2 mg daily, Entresto, Coreg and Jardiance strongly recommend to take all medications as prescribed Coronary artery disease recommend to continue aspirin, Lipitor, and Coreg recommend to follow up with Dr. Boyd from Cardiology For diabetes recommend to follow blood sugar before meals and at bedtime, inform MD if blood sugar less than 60 or greater than 200 or develops symptoms of lightheadedness dizziness ,weakness,or passing out. Health Concerns: Diabetes mellitus, coronary artery disease, new onset of atrial fibrillation strongly recommend compliance with all home medications Plan of Treatment: Outpatient follow-up with Dr. Boyd, call for appointment Outpatient follow-up with primary care physician call for appointment Assessment: As above.
--- NOTE | 2023-01-20 12:12 | W.MHC.F2F ---
Service Date Service Date: 01/20/23 Encounter Date of encounter: 01/20/23 Reasons for Services Signs and symptoms assessed: left sided numbness/blood sugar monitoring Reason for care home: diabetic teaching, monitoring of unstable blood sugar, medication management, medication treatment and teach disease management Reason for physical therapy: home safety and mobility Homebound: Leaving the home is medically contraindicated at this time without the asist of a device and/or another person due th the listed conditions above and below. Reason homebound: weakness related to hospital stay Certification: Based on the above findings, I certify that this patient is confined to the home and needs intermittent care home care, physical therapy and/or speech therapy, or continues to need occupational therapy. The patient is under my care, and I have initiated the establishment of the plan of care. The patient will be followed by a physician who will periodically review the plan of care. Time Spent With Patient Time: Total time managing care of this patient today ____ minutes.
--- NOTE | 2023-01-20 12:41 | MHC.CM.PN ---
Pt is medically cleared for D/C home with new VNA ([facility]). Pts spouse Marli will transport home.
== END 2023-01-20 13:42 | disposition home health service (06) | DRG 45 ==
LOC: HO.ED 01-17 03:00 → HO.EDOVER 01-17 03:06 → HO.IMC 01-17 12:41
PROVIDERS: Family Medicine; Internal Medicine; Admitting Provider Internal Medicine; Emergency Provider Student in an Organized Health Care Education/Training Program; PCP Internal Medicine; Visit Provider Hospitalist
DX: I63.411 Cerebral infarction due to embolism of right middle cerebral artery (principal); I50.23 Acute on chronic systolic (congestive) heart failure; I47.20 Ventricular tachycardia, unspecified; E11.22 Type 2 diabetes mellitus with diabetic chronic kidney disease; E11.40 Type 2 diabetes mellitus with diabetic neuropathy, unspecified; G83.22 Monoplegia of upper limb affecting left dominant side; I48.91 Unspecified atrial fibrillation; E78.00 Pure hypercholesterolemia, unspecified; F17.210 Nicotine dependence, cigarettes, uncomplicated; I13.0 Hypertensive heart and chronic kidney disease with heart failure and stage 1 through stage 4 chronic kidney disease, or unspecified chronic kidney disease; N18.30 Chronic kidney disease, stage 3 unspecified; I25.10 Atherosclerotic heart disease of native coronary artery without angina pectoris; Z91.148 Patient's other noncompliance with medication regimen for other reason; E11.65 Type 2 diabetes mellitus with hyperglycemia; E66.9 Obesity, unspecified; Z68.41 Body mass index [BMI] 40.0-44.9, adult; Z89.511 Acquired absence of right leg below knee; I25.5 Ischemic cardiomyopathy; Z71.6 Tobacco abuse counseling; Z79.4 Long term (current) use of insulin; Z79.01 Long term (current) use of anticoagulants; Z79.82 Long term (current) use of aspirin; Z79.84 Long term (current) use of oral hypoglycemic drugs; Z79.899 Other long term (current) drug therapy
CPT/HCPCS: 36415; 70450; 70551; 71045; 80048; 80061; 82947; 83735; 83880; 84484; 85025; 93005; 93308; 93880; 94640; 97110; 97112; 97162; 97166; 97530; 99285; J1160; J1650; J1940; Q9957

== ENCOUNTER → 2023-01-16 22:07 | Outpatient (BNV) | payer OTHER, SELFPAY | PROVIDERS: Admitting Provider Internal Medicine; Emergency Provider Student in an Organized Health Care Education/Training Program; PCP Internal Medicine; Visit Provider Internal Medicine Cardiovascular Disease | DX: I49.1 Atrial premature depolarization (principal); R94.31 Abnormal electrocardiogram [ECG] [EKG] | CPT/HCPCS: 93010 ==

== ENCOUNTER → 2023-01-17 02:52 | Outpatient (BNV) | payer OTHER, SELFPAY | PROVIDERS: Admitting Provider Internal Medicine; Emergency Provider Student in an Organized Health Care Education/Training Program; PCP Internal Medicine; Visit Provider Internal Medicine | DX: I63.9 Cerebral infarction, unspecified (principal); I50.9 Heart failure, unspecified | CPT/HCPCS: 99222; 99232; 99239; 99499; G0180 ==

== ENCOUNTER → 2023-01-17 09:08 | Outpatient (BNV) | payer OTHER, SELFPAY | PROVIDERS: Admitting Provider Internal Medicine; Emergency Provider Student in an Organized Health Care Education/Training Program; PCP Internal Medicine; Visit Provider Internal Medicine Cardiovascular Disease | DX: I50.9 Heart failure, unspecified (principal); I48.91 Unspecified atrial fibrillation; I25.5 Ischemic cardiomyopathy | CPT/HCPCS: 93308; 99222; 99232 ==

== ENCOUNTER 2023-02-02 13:38 | Outpatient (AMB) | payer OTHER, SELFPAY ==
--- NOTE | 2023-02-02 13:45 | A.OFFVIS_ITS ---
Intake Vital Signs 02/02/23 14:06 Comment unable to obtain weight pt on wheelchair Intake Visit Reasons: follow up BKA-right Intake Note: This patient presents for a follow-up assessment status post BKA of the right leg. Patient c/o; was admitted 3 weeks ago had stroke per pt, denies complaints with wound. Bonderizer Required: No Accompanied by: Spouse Allergies gabapentin Adverse Reaction (Intermediate, Verified 02/02/23 13:46) nausea, dizziness Medication List - Last Reconciled 02/02/23 by Guido Keane MD albuterol sulfate 90 mcg/actuation (Ventolin HFA) 2 puffs inhalation Q4-6H PRN apixaban (Eliquis) 5 mg PO BID aspirin 81 mg PO DAILY blood sugar diagnostic (FreeStyle Lite Strips) test 3 times daily blood-glucose meter (FreeStyle Lite Meter kit) test 3 times daily carvedilol 12.5 mg See Protocol PO BID empagliflozin (Jardiance) 10 mg PO DAILY flash glucose scanning reader (FreeStyle Swati 2 [place]) As directed flash glucose sensor (FreeStyle Swati 2 Sensor kit) As directed glipizide ER 10 mg PO DAILY insulin glargine (Lantus U-100 Insulin) 10 units (0.1 mL) subcut BEDTIME insulin lispro 1 sliding scale dose subcut QIDACHS insulin syringe-needle U-100 (BD Insulin Syringe) 3-4 times per day lancets (FreeStyle Lancets) test 3 times daily sacubitril-valsartan 49-51 mg (Entresto) 1 tab See Protocol PO BID walker (Ultra-Light Rollator mis) As directed HPI follow up BKA-right HPI Details He is here because of his right BKA stump. I had done his BKA last June,. Last seen him in the office last October,. At that time, the BKA stump seemed to have healed completely. He says that he wants this stump checked so that he can have his prosthesis arranged. He denies any compromise with the BKA stump. He says the left foot ulcer has healed as well. He did state that he was recently treated for each stroke and had fluid in his lungs. [facility] Medical History (Updated 02/02/23 @ 14:11 by Guido Keane MD) Asthma Benign essential hypertension BKA stump complication Callus under metatarsal head Cardiomyopathy Chronic painful diabetic neuropathy CKD (chronic kidney disease) stage 3, GFR 30-59 ml/min Diabetes mellitus Diabetes mellitus Diabetic foot Diabetic ulcer of foot associated with diabetes mellitus due to underlying condition, with fat layer exposed Dry gangrene Foot abscess, right Gram positive sepsis Hyperlipidemia LDL goal <100 Lumbar degenerative disc disease Neuropathy Obesity Obesity (BMI 30-39.9) Osteomyelitis of ankle or foot, acute Osteomyelitis of left foot Pure hypercholesterolemia Smoker Umbilical hernia Surgical History H/O hernia repair Status post amputation of left great toe Status post below knee amputation of right lower extremity Status post debridement Status post incision and drainage Status post incision and drainage Family History Father Medical history unknown Mother Asthma Hypertension Diabetes Brother Chronic mental illness Diabetes Social History Household Members: Spouse Household Members Other:: girlfriend Housing: House Do you presently have visiting nurse or other home services: No Alcohol intake: former Patient Tobacco Use Status: Current everyday Tobacco user Tobacco use type: Cigarette Cigarette Packs Per Day: 1.5 Cigarettes Per Day: 30.0 Years Smoked: 30 Second Hand Smoke Exposure: Yes Substance Use Type: Marijuana Advance Directives Date on File: 05/30/20 service: No Current occupational status: employed Review of Systems Const Denies chills and Denies fever(s) Card Denies chest pain at rest GI Denies abdominal pain Denies difficulty urinating Physical Exam Const Other: On wheelchair, appears overweight General: comfortable and no acute distress Resp Effort & Inspection: normal respiratory effort Cardio Rate: regular rate GI Palpation (GI): Soft to palpation Extrem Other: Right BKA stump completely healed, no infection, no discharge Assessment & Plan Assessment & Plan (1) BKA stump complication: Code(s): T87.9 - Unspecified complications of amputation stump Plan: He had some persistent drainage and poor healing of the BKA stump before but this has completely healed now. There is no evidence of any drainage or infection I told him that can let me know what he needs to arrange for a prosthesis he said he will go to a provider in [place] who will do fitting for his prosthesis. I reminded him that he needs to have good control of his blood sugars. He needs to examine his stump as well as his left foot every night as he is prone to ulcers and infections. Coding Level of Care Code Est Pt Level 3 (94032) Diagnoses BKA stump complication T87.9
== END 2023-02-02 14:08 | disposition home or self-care (01) ==
PROVIDERS: PCP Internal Medicine; Visit Provider Surgery
DX: T87.9 Unspecified complications of amputation stump (principal)
CPT/HCPCS: 99213

== ENCOUNTER → 2023-02-02 13:38 | Outpatient (BNVA) | payer OTHER, SELFPAY | PROVIDERS: PCP Internal Medicine; Visit Provider Surgery | DX: T87.9 Unspecified complications of amputation stump (principal); Z89.511 Acquired absence of right leg below knee | CPT/HCPCS: 99212 ==

== ENCOUNTER 2023-02-20 07:56 | Inpatient (IN) | payer OTHER, SELFPAY ==
[2023-02-20] VITALS (10 sets, daily range): BP systolic 130–229; BP diastolic 109–216; PULSE 103–133; RESP 19–31; TEMP 36.2–37; O2SAT 96–98; BMI 39.6
--- NOTE | 2023-02-20 | ECG_ITS ---
Test Reason : chest pain Blood Pressure : / mmHG Vent. Rate : 124 BPM Atrial Rate : 000 BPM P-R Int : 000 ms QRS Dur : 098 ms QT Int : 344 ms P-R-T Axes : 000 022 239 degrees QTc Int : 494 ms Atrial fibrillation with rapid ventricular response with premature ventricular or aberrantly conducted complexes Low voltage QRS Nonspecific T wave abnormality Abnormal ECG When compared with ECG of 20-FEB-2023 08:24, Premature ventricular complexes are now Present Referred By: Vilma Suresh Electronically Signed By:BRANDIE FERNANDEZ
--- NOTE | ~2023-02-20 | CT_ITS ---
EXAMINATION: CT CHEST WITHOUT CONTRAST CLINICAL INFORMATION: Shortness of breath and elevated BNP COMPARISON: None available. TECHNIQUE: Multidetector volumetric CT imaging of the chest was done. Axial MIP volume rendering provided. Sagittal and coronal reformatted images were obtained. This CT examination was performed using dose optimization techniques as appropriate, variously including the following: *Automated exposure control *Adjustment of mA and/or kV according to patient size (this includes techniques or standardized protocols for targeted exams where dose is matched to indication/reason for exam; i.e. extremities or head) *Use of iterative reconstruction technique DLP: 454 mGy-cm FINDINGS: Marked motion artifact obscures detail. LUNGS AND PLEURA: Moderate sized bilateral pleural effusions are seen with associated bilateral lower lobe atelectasis. No suspicious lung masses are seen. Calcified granuloma present in the left upper lobe (2:12). MEDIASTINUM: There is mild cardiac enlargement. No pericardial effusion. There are small probable reactive mediastinal lymph nodes but no gross mediastinal or hilar lymphadenopathy. CORONARY ARTERY CALCIFICATION: Moderate AXILLA: No lymphadenopathy. UPPER ABDOMEN: Unremarkable. OSSEOUS STRUCTURES: Unremarkable. CT/CT chest wo IV con IMPRESSION: Mild cardiomegaly and moderate-sized bilateral pleural effusions with associated bilateral lower lobe atelectasis. Findings are suggestive of CHF Fleischner guidelines were followed.
--- NOTE | ~2023-02-20 | XR_ITS ---
EXAMINATION: XR CHEST CLINICAL INFORMATION: ET tube and triple lumen catheter placement COMPARISON: Chest radiograph earlier today at 5:23 PM TECHNIQUE: Frontal view of the chest was obtained. FINDINGS: Since the prior study an ET tube has been placed with its tip 1.5 cm above the triston. A right IJ catheter has been placed with its tip at the SVC/RA junction. No pneumothorax. The heart is enlarged. Bilateral small pleural effusions are seen. Airspace disease is seen in the right lung, possibly edema. XR/XR chest 1V IMPRESSION: 1. ET tube 1.5 cm above the triston. 2. Right IJ catheter with tip at SVC/RA junction. 3. Cardiomegaly and bilateral pleural effusions with right lung airspace disease as described above.
--- NOTE | ~2023-02-20 | XR_ITS ---
EXAMINATION: XR CHEST CLINICAL INFORMATION: Difficulty breathing. COMPARISON: 02/20/2025. TECHNIQUE: Frontal view of the chest was obtained. FINDINGS: The lung volumes are low. The cardiomediastinal silhouette is stable. There are faint lower lung field opacities. The costophrenic angles are blunted. The bony structures and soft tissues are unremarkable. XR/XR chest 1V IMPRESSION: Low lung volumes limits evaluation. Faint basilar opacities possibly atelectasis/infiltrate. There is blunting of the costophrenic angles which suggests associated small pleural effusions.
--- NOTE | ~2023-02-20 | XR_ITS ---
EXAMINATION: XR CHEST CLINICAL INFORMATION: Increased work of breathing. COMPARISON: 01/16/2023 chest radiograph. TECHNIQUE: Frontal view of the chest was obtained. FINDINGS: Rotated positioning and low lung volumes limit evaluation. Mild bibasilar linear markings are seen. The upper lung canchola are clear. The heart and mediastinal structures are unremarkable. XR/XR chest 1V IMPRESSION: Mild bibasilar linear markings likely secondary to suboptimal inspiration positioning representing atelectasis. Overall appearance is similar. If symptoms persist or worsen, PA and lateral views of the chest are recommended.
--- NOTE | ~2023-02-20 | CT_ITS ---
EXAMINATION: CT HEAD WITHOUT CONTRAST (STROKE PROTOCOL) CLINICAL INFORMATION: Stroke protocol. Worsening mental status. COMPARISON: CT brain 02/20/2023 TECHNIQUE: Contiguous axial imaging was performed from the skull base to vertex without intravenous administration of contrast. This CT examination was performed using dose optimization techniques as appropriate, variously including the following: *Automated exposure control *Adjustment of mA and/or kV according to patient size (this includes techniques or standardized protocols for targeted exams where dose is matched to indication/reason for exam; i.e. extremities or head) *Use of iterative reconstruction technique DLP: 893 mGy-cm FINDINGS: There is a large right basal ganglia bleed edema. There is moderate [id number] 7 mm shift. Trace hemorrhage seen in right occipital horn lateral ventricle. The extra-axial hemorrhage seen. Hypodensity right parieto-occipital region is stable/watershed area is stable and may represent old infarct and was seen on 12/18/[address] 02/20/2023. The lateral ventricles are enlarged but compromised due to right basal ganglia bleed. There is no abnormality seen in the posterior fossa. CT/CT head for stroke IMPRESSION: Large right basal ganglia bleed with moderate surrounding edema and mild 7 mm [id number] midline shift. There is complete obliteration of right lateral ventricle frontal horn. Trace blood seen in the dependent portion of occipital horn right lateral ventricle. This critical result was discussed by phone with Dr. Luciano at 8:00 PM on 02/21/2023.. It was ascertained that the content and urgency of the report was understood at the time of direct communication.
--- NOTE | ~2023-02-20 | CT_ITS ---
EXAMINATION: CT HEAD WITHOUT CONTRAST (STROKE PROTOCOL) CLINICAL INFORMATION: Stroke protocol. Lethargy and left arm weakness COMPARISON: CT brain 01/17/2022. TECHNIQUE: Contiguous axial imaging was performed from the skull base to vertex without intravenous administration of contrast. This CT examination was performed using dose optimization techniques as appropriate, variously including the following: *Automated exposure control *Adjustment of mA and/or kV according to patient size (this includes techniques or standardized protocols for targeted exams where dose is matched to indication/reason for exam; i.e. extremities or head) *Use of iterative reconstruction technique DLP: 911 mGy-cm FINDINGS: There is a wedge deformity right posterior parietal and temporal lobe image 21/3 and 25/3 likely old infarct. This was present on the previous study 01/17/2023. No additional areas of acute infarction seen. There is no acute intra-axial, extra-axial bleed, masses or midline shift. The lateral ventricles are symmetrical in size and configuration without enlargement. The klein to white matter difference is maintained normal. No abnormality seen in the posterior fossa. Bone windows reveal no calvarial abnormality. There is no scalp soft tissue abnormality. Bilateral paranasal sinuses and mastoid air cells are well-aerated. Minimal mucoperiosteal thickening left maxillary sinus. The soft tissues are normal. CT/CT head for stroke IMPRESSION: No acute intracranial process. There is a right posterior parietal and temporal lobe hypodensity likely old infarct unchanged to 01/17/2022 CT brain. No progression of the hypodensity seen on the present exam. This critical result was discussed with Dr. Sundeep Dumont at 8:26 AM.. It was ascertained that the content and urgency of the report was understood at the time of direct communication.
--- NOTE | 2023-02-20 07:59 | ED.WEAKNESS ---
HPI - Weakness General Chief complaint: Stroke Stated complaint: STROKE ALERT, LKW T-1,+THINNERS, LT SIDED DROOP Time Seen by Provider: 02/20/23 07:59 Source: EMS Mode of arrival: EMS Limitations: altered mental status History of Present Illness HPI Narrative: Patient went to bed around 12am according to who gave the history. Around 7:30 am patient was not responding. Patient was not moving his left side. He is non verbal MD Complaint: focal weakness Onset (ago): unknown Duration: constant Location: LUE Related Data Home Medications Medication Instructions Recorded Confirmed glipizide 10 mg tablet, extended 10 mg PO DAILY 01/17/23 02/02/23 release 24 hr insulin lispro 100 unit/mL 1 sliding scale dose subcut QIDACHS 01/17/23 02/02/23 subcutaneous solution Previous Rx's Medication Instructions Recorded apixaban 5 mg tablet (Eliquis) 5 mg PO BID #60 tabs 01/20/23 aspirin 81 mg tablet,delayed 81 mg PO DAILY #30 tabs 01/20/23 release carvedilol 12.5 mg tablet 12.5 mg PO BID #60 tabs 01/20/23 empagliflozin 10 mg tablet 10 mg PO DAILY #30 tabs 01/20/23 (Jardiance) insulin glargine 100 unit/mL 10 unit (0.1 mL) subcut BEDTIME 01/20/23 subcutaneous solution (Lantus #10 mL U-100 Insulin) sacubitril 49 mg-valsartan 51 mg 1 tab PO BID #60 tabs 01/20/23 tablet (Entresto) blood sugar diagnostic (FreeStyle #100 ea 01/26/23 Lite Strips) blood-glucose meter (FreeStyle #1 ea 01/26/23 Lite Meter kit) flash glucose scanning reader #1 ea 01/26/23 (FreeStyle Swati 2 [place]) flash glucose sensor (FreeStyle #1 ea 01/26/23 Swati 2 Sensor kit) insulin syringe-needle U-100 1 mL #100 ea 01/26/23 29 gauge x 1/2 (BD Insulin Syringe) walker (Ultra-Light Rollator misc) #1 ea 01/27/23 albuterol sulfate 90 mcg/actuation 2 puff inhalation Q4-6H PRN for 02/13/23 aerosol inhaler (Ventolin HFA) wheezing #18 ea blood sugar diagnostic (FreeStyle #100 ea 02/17/23 Lite Strips) blood-glucose meter (FreeStyle #1 ea 02/17/23 Lite Meter kit) lancets 28 gauge (FreeStyle #100 ea 02/17/23 Lancets) Allergies Allergy/AdvReac Type Severity Reaction Status Date / Time gabapentin AdvReac Intermediate nausea, Verified 02/02/23 13:46 dizziness Review of Systems Review of Systems: Yes Unobtainable due to mental condition Neurologic: Reports Sensory deficit (Neuro) FOR[facility]LY [facility] Past Medical History Medical History Asthma Benign essential hypertension BKA stump complication Callus under metatarsal head Cardiomyopathy Chronic painful diabetic neuropathy CKD (chronic kidney disease) stage 3, GFR 30-59 ml/min Diabetes mellitus Diabetes mellitus Diabetic foot Diabetic ulcer of foot associated with diabetes mellitus due to underlying condition, with fat layer exposed Dry gangrene Foot abscess, right Gram positive sepsis Hyperlipidemia LDL goal <100 Lumbar degenerative disc disease Neuropathy Obesity Obesity (BMI 30-39.9) Osteomyelitis of ankle or foot, acute Osteomyelitis of left foot Pure hypercholesterolemia Smoker Umbilical hernia Surgical History H/O hernia repair Status post amputation of left great toe Status post below knee amputation of right lower extremity Status post debridement Status post incision and drainage Status post incision and drainage Family History Family History Father Medical history unknown Mother Asthma Hypertension Diabetes Brother Chronic mental illness Diabetes Social History Social History Household Members: Spouse Household Members Other:: girlfriend Housing: House Do you presently have visiting nurse or other home services: No Alcohol intake: never Patient Tobacco Use Status: Current everyday Tobacco user Tobacco use type: Cigarette Cigarette Packs Per Day: 1.5 Cigarettes Per Day: 30.0 Years Smoked: 30 Smoked in Last 30 Days: Yes Second Hand Smoke Exposure: Yes Use of substances other than those prescribed or required for medical reasons: No Substance Use Type: Marijuana Advance Directives: Yes Advance Directives on File: Yes Advance Directives Date on File: 05/30/20 service: No Current occupational status: employed Physical Exam Vital Signs: Vital Signs: Last Vital Signs Temp 98.6 F 02/20/23 08:10 Pulse 117 H 02/20/23 08:54 Resp 31 H 02/20/23 08:54 BP 130/123 H 02/20/23 08:54 Pulse Ox 98 02/20/23 08:54 O2 Del Method Room Air 02/20/23 08:54 BMI result Body Mass Index 39.6 Const: Other: obese chronically ill Limitations: altered mental status HEENT: Head: Yes normal to inspection Ears: external ears normal General nose exam: Normal external nose present Mouth: Normal oral and palatal mucosa present and oropharynx normal Throat: Yes posterior oropharynx normal Eyes: General: appearance normal, both eyes and all related structures Neck: Other: supple Neck: Yes normal visual inspection Chest: Chest palpation & inspection: normal inspection of the chest Resp: Auscultation: clear to auscultation bilaterally Cardio: Other: tachycardia IRRR Jugular venous distension: no JVD GI: Inspection: Yes normal to inspection Palpation (GI): Soft to palpation, nontender and No hepatosplenomegaly present Auscultation: normal bowel sounds : General: Yes no CVA tenderness Back/Spine/Pelvis: Back: no CVA tenderness Skin: General skin exam: no rashes or lesions noted Neuro: Other: moves right arm not left only to pain Sensory Exam: Sensory deficit (Neuro) Extrem: Other: right AKA, left foot partial amputation Psych: Appearance: grossly normal NIH Stroke Scale Level of Consciousness: Not Alert; but arousable by minor stimulation Level of Consciousness Questions: Answers neither question correctly Level of Consciousness Commands: Performs neither task correctly Best Gaze: Forced deviation Facial Palsy: Normal Motor Arm (Right): No drift Motor Arm (Left): No effort against gravity Motor Leg (Right): Amputation or joint fusion Motor Leg (Left): Some effort against gravity Course Reevaluation(s) Reevaluation #1: Discussed with Dr. Cuenca will not give thrombolytics Time: 09:46 Reevaluation #2: I spent 40 minutes of critical care, with interventions, assessments, speaking to patient, consultants, and family. Time: 09:47 Medications Administered Discontinued Medications Generic Name Dose Route Start Last Admin Trade Name Freq PRN Reason Stop Dose Admin Labetalol HCl 10 mg 02/20/23 08:00 02/20/23 08:35 Labetalol Hcl 100 Mg/20 Ml Vial IVPUSH 02/20/23 08:01 10 mg ONCE ONE Administration Medical Decision Making Differential Diagnosis Differential Diagnoses: The differential diagnosis associated with the presentation includes (cerebral bleed, CVA, cerebral mass) Admission/Observation Consideration of admission/observation: Escalation of care including admission/observation considered (upon arrival patient considered for admission) Consult Healthcare Provider Management of the patient was discussed with: Hospitalist and Gambling Floor Supervisor (Dr. Bang lara) Lab Data MDM Lab Attestation statement: I reviewed the patient's lab results. (chronic elevated BUN/Cr, elevated troponin, elevated sugar) 02/20/23 08:06 02/20/23 08:06 Labs: Lab Results 02/20/23 02/20/23 02/20/23 Range/Units 08:03 08:05 08:06 WBC 8.9 (4.8-10.8) X10*3/uL RBC 4.94 (4.60-5.80) X10*6/uL Hgb 11.9 L (14.0-18.0) g/dl Hct 38.6 L (42.0-52.0) % MCV 78.1 L (80.0-98.0) fL MCH 24.1 L (27.0-33.0) pg MCHC 30.8 L (31.0-36.0) g/dl RDW 13.9 (11.0-16.0) % Plt Count 513 H D (160-400) X10*3/uL MPV 10.4 (9.4-12.4) fL Immature Gran % (Auto) 0.4 (0.0-0.4) % Neut % (Auto) 82.6 H (45-73) % Lymph % (Auto) 9.1 L (20-40) % Marshall % (Auto) 7.0 (2-11) % Eos % (Auto) 0.3 (0-4) % Baso % (Auto) 0.6 (0-2) % Lymph # (Auto) 0.8 L (1.2-4.9) X10*3/uL Marshall # (Auto) 0.6 (0.1-1.2) X10*3/uL Eos # (Auto) 0.0 (0.0-0.4) X10*3/uL Baso # (Auto) 0.1 (0.0-0.2) X10*3/uL Abs Immat Gran (auto) 0.04 H (0.00-0.03) X10*3/uL Absolute Neuts (auto) 7.4 (2.0-8.3) x10*3/uL Absolute Nucleated RBC 0.000 (0.0-0.012) X10*3/uL Nucleated RBC % (auto) 0.0 (0.0-0.2) /100WBC PT (11.1-13.3) SEC Whole Blood PT 13.5 (11.1-13.5) sec INR (0.9-1.1) Whole Blood INR 1.1 (0.9-1.1) APTT (26.0-36.4) SEC Sodium (135-145) mmol/L Potassium (3.3-5.1) mmol/L Chloride (96-108) mmol/L Carbon Dioxide (22-29) mmol/L Anion Gap (12-20) BUN (9-16) mg/dL Creatinine (0.5-1.4) mg/dL Estim Creat Clear Calc Estimated GFR POC Glucose 249 H (60-115) mg/dL Random Glucose (60-115) mg/dL Calcium (8.4-10.2) mg/dL Total Creatine Kinase (38-174) U/L Troponin I High Sens (<3.5-35.0) ng/L 02/20/23 02/20/23 02/20/23 Range/Units 08:06 08:06 08:06 WBC (4.8-10.8) X10*3/uL RBC (4.60-5.80) X10*6/uL Hgb (14.0-18.0) g/dl Hct (42.0-52.0) % MCV (80.0-98.0) fL MCH (27.0-33.0) pg MCHC (31.0-36.0) g/dl RDW (11.0-16.0) % Plt Count (160-400) X10*3/uL MPV (9.4-12.4) fL Immature Gran % (Auto) (0.0-0.4) % Neut % (Auto) (45-73) % Lymph % (Auto) (20-40) % Marshall % (Auto) (2-11) % Eos % (Auto) (0-4) % Baso % (Auto) (0-2) % Lymph # (Auto) (1.2-4.9) X10*3/uL [place] # (Auto) (0.1-1.2) X10*3/uL Eos # (Auto) (0.0-0.4) X10*3/uL Baso # (Auto) (0.0-0.2) X10*3/uL Abs Immat Gran (auto) (0.00-0.03) X10*3/uL Absolute Neuts (auto) (2.0-8.3) x10*3/uL Absolute Nucleated RBC (0.0-0.012) X10*3/uL Nucleated RBC % (auto) (0.0-0.2) /100WBC PT 12.7 (11.1-13.3) SEC Whole Blood PT (11.1-13.5) sec INR 1.0 (0.9-1.1) Whole Blood INR (0.9-1.1) APTT 38.7 H (26.0-36.4) SEC Sodium 137 (135-145) mmol/L Potassium 4.4 (3.3-5.1) mmol/L Chloride 106 (96-108) mmol/L Carbon Dioxide 20 L (22-29) mmol/L Anion Gap 15 (12-20) BUN 19 H (9-16) mg/dL Creatinine 1.85 H (0.5-1.4) mg/dL Estim Creat Clear Calc 56.4 Estimated GFR 39 POC Glucose (60-115) mg/dL Random Glucose 262 H (60-115) mg/dL Calcium 9.0 (8.4-10.2) mg/dL Total Creatine Kinase 208 H (38-174) U/L Troponin I High Sens 49.0 H (<3.5-35.0) ng/L Independent Interpretation I performed an independent interpretation of an: EKG (rapid atrial fibrillation rate 125, no st or twave changes) and CT Scan (no blood old vs new infarction) Radiology Impression Discussion of test interpretation with radiology: I discussed test interpretation with the radiologist (old CVA nothing acute) Independent Historian Clinical information obtained from an independent historian. History obtained from or confirmed by: Spouse () Chronic Conditions Patient?s care impacted by: Diabetes, Hypertension and Other (stroke) Discharge Plan Discharge Clinical Impression: Acute CVA (cerebrovascular accident), Atrial fibrillation, Diabetes mellitus Patient Disposition: Admitted As Inpatient Prescriptions: No Action (DME) FreeStyle Swati 2 Sensor Kit See Rx Instructions .Route Qty: 1 8RF Rx Instructions: As directed (DME) FreeStyle Swati 2 [place] Misc See Rx Instructions .Route Qty: 1 0RF Rx Instructions: As directed (DME) insulin syringe-needle U-100 [BD Insulin Syringe] 1 mL 29 gauge x 1/2 syringe See Rx Instructions .Route Qty: 100 8RF Rx Instructions: 3-4 times per day (DME) blood-glucose meter [FreeStyle Lite Meter] Kit See Rx Instructions .Route Qty: 1 0RF Rx Instructions: test 3 times daily (DME) FreeStyle Lite Strips Strip See Rx Instructions .Route Qty: 100 8RF Rx Instructions: test 3 times daily (DME) Ultra-Light Rollator Misc See Rx Instructions .Route Qty: 1 0RF Rx Instructions: As directed albuterol sulfate [Ventolin HFA] 90 mcg/actuation HFA aerosol inhaler 2 puff inhalation Q4-6H PRN (Reason: for wheezing) Qty: 18 1RF (DME) blood-glucose meter [FreeStyle Lite Meter] Kit See Rx Instructions .ROUTE .MEDSUPPLY Qty: 1 0RF Rx Instructions: As directed 3 times a day (DME) FreeStyle Lite Strips Strip See Rx Instructions .ROUTE .MEDSUPPLY Qty: 100 12RF Rx Instructions: As directed 3 times a day (DME) lancets [FreeStyle Lancets] 28 gauge misc See Rx Instructions .Route Qty: 100 12RF Rx Instructions: test 3 times daily glipizide 10 mg tablet extended release 24hr 10 mg PO DAILY insulin lispro 100 unit/mL Solution 1 sliding scale dose SUBCUT QIDACHS Rx Instructions: Protocol: Insulin Correction Scale Less than or equal to 110 ---- Give (units): 0 111 to 150 Give (units): 0 151 to 200 Give (units): 2 201 to 250 Give (units): 4 251 to 300 Give (units): 6 301 to 350 Give (units): 8 Greater than 350 Give (units): 10 Call MD if Blood Glucose > : 350 carvedilol 12.5 mg Tablet 12.5 mg PO BID Qty: 60 0RF Protocol: Hold for SBP/HR < HOLD for SBP < : 90 HOLD for HR < : 60 Entresto 49-51 mg Tablet 1 tab PO BID Qty: 60 0RF Protocol: Hold for SBP< HOLD for SBP < : 90 aspirin 81 mg Tablet,Delayed Release (Dr/Ec) 81 mg PO DAILY Qty: 30 0RF Jardiance 10 mg Tablet 10 mg PO DAILY Qty: 30 0RF Eliquis 5 mg Tablet 5 mg PO BID Qty: 60 0RF insulin glargine [Lantus U-100 Insulin] 100 unit/mL Solution 10 unit subcut BEDTIME Qty: 10 0RF
--- NOTE | 2023-02-20 08:00 | ECG_ITS ---
Test Reason : ams Blood Pressure : / mmHG Vent. Rate : 125 BPM Atrial Rate : 000 BPM P-R Int : 000 ms QRS Dur : 094 ms QT Int : 326 ms P-R-T Axes : 000 012 203 degrees QTc Int : 470 ms Atrial fibrillation with rapid ventricular response Low voltage QRS Nonspecific T wave abnormality Abnormal ECG When compared with ECG of 16-JAN-2023 22:08, Atrial fibrillation has replaced Sinus rhythm Referred By: Sundeep Dumont Electronically Signed By:PASTORA CROUCH MD
[2023-02-20 08:15] LABS: Prothrombin Time Whole Bld POC 13.5 sec (11.1-13.5); ~PT, ~INR - Anti Coag Clinic 1.1 (0.9-1.1)
[2023-02-20 08:17] LABS: MANUAL DIFF FLAG NO
[2023-02-20 08:19] LABS: Basophils Absolute Auto 0.1 X10*3/uL (0.0-0.2); Basophils Percent Auto 0.6 % (0-2); Eosinophils Percent Auto 0.3 % (0-4); Hematocrit 38.6 % (42.0-52.0); Hemoglobin 11.9 g/dl (14.0-18.0); Imm Gran Abs Auto 0.04 X10*3/uL (0.00-0.03); Imm Gran Pct Auto 0.4 % (0.0-0.4); Lymphocytes Absolute Auto 0.8 X10*3/uL (1.2-4.9); Lymphocytes Percent Auto 9.1 % (20-40); Mean Corpuscular HGB Conc 30.8 g/dl (31.0-36.0); Mean Corpuscular Hemoglobin 24.1 pg (27.0-33.0); Mean Corpuscular Volume 78.1 fL (80.0-98.0); Mean Platelet Volume 10.4 fL (9.4-12.4); Monocytes Absolute Auto 0.6 X10*3/uL (0.1-1.2); Neutrophils Absolute Auto 7.4 x10*3/uL (2.0-8.3); Neutrophils Percent Auto 82.6 % (45-73); Platelet Count 513 X10*3/uL (160-400); Red Blood Count 4.94 X10*6/uL (4.60-5.80); Red Cell Distribution Width 13.9 % (11.0-16.0); White Blood Count 8.9 X10*3/uL (4.8-10.8)
[2023-02-20 08:23] LABS: Prothrombin Time 12.7 SEC (11.1-13.3)
[2023-02-20 08:25] LABS: Partial Thromboplastin Time 38.7 SEC (26.0-36.4)
[2023-02-20 08:26] LABS: Stroke Lab Use COMPLETE
[2023-02-20] MEDS: Labetalol HCL 100 MG/20 ML VIAL 10 MG IVPUSH (08:35)
[2023-02-20 08:52] LABS: Glucose, Whole Blood 249 mg/dL (60-115)
[2023-02-20 09:16] LABS: Anion Gap 15 (12-20); Blood Urea Nitrogen 19 mg/dL (9-16); Carbon Dioxide 20 mmol/L (22-29); Chloride 106 mmol/L (96-108); Creatinine Clr Calc Pharmacy 56.4; Estimated Glomerular Filt Rate 39; Glucose Random 262 mg/dL (60-115); Potassium 4.4 mmol/L (3.3-5.1); Sodium 137 mmol/L (135-145)
--- NOTE | 2023-02-20 09:51 | MHC.CM.PN ---
CM RECEIVED CALL FROM [facility] THAT PT IS ACTIVE W/SN AND HOME PT.
[2023-02-20] MEDS: Metoprolol Tartrate 5 MG/5 ML VIAL IVPUSH (10:42)
--- NOTE | 2023-02-20 11:48 | P.HPHOSP_ITS ---
History of Present Illness Date of Service: 02/20/23 Attending physician on admission: Atif Robins Chief Complaint: aphasia 52-year-old male past medical history of diabetes, hypertension, hyperlipidemia, right BKA, diabetic neuropathy, HFrEF, persistent atrial fibrillation anticoagulated, hx CVA 1 month ago with right middle cerebral artery territory infarction, hx noncompliance with medications presented to the ED via EMS early this morning when his noticed he was not speaking and not moving his left side. Went to bed around midnight asymptomatic. On exam patient remains aphasic and history obtained from ED provider and report. On arrival, pt in afib with rvr, rate 133, hypertensive to 172/112, tachypneic to 30. ED provider gave labetolol 10mg and metoprolol 5mg with improvement in HR to 106-118. CBC baseline. Renal function baseline, lytes normal. Initial trop 49, ck 208. Head Ct negative for acute intracranial process. There is right posterior parietal and temporal lobe hypodensity, likekly old infarct without progression. Case discussed with neurology who did not recommend TPA or CTA head as this time per ed provider. Review of Systems Review of Systems: Yes Unobtainable due to mental condition and Unobtainable due to mental status [facility] Medical History Asthma Benign essential hypertension BKA stump complication Callus under metatarsal head Cardiomyopathy Chronic painful diabetic neuropathy CKD (chronic kidney disease) stage 3, GFR 30-59 ml/min Diabetes mellitus Diabetes mellitus Diabetic foot Diabetic ulcer of foot associated with diabetes mellitus due to underlying condition, with fat layer exposed Dry gangrene Foot abscess, right Gram positive sepsis Hyperlipidemia LDL goal <100 Lumbar degenerative disc disease Neuropathy Obesity Obesity (BMI 30-39.9) Osteomyelitis of ankle or foot, acute Osteomyelitis of left foot Pure hypercholesterolemia Smoker Umbilical hernia Family History Father Medical history unknown Mother Asthma Hypertension Diabetes Brother Chronic mental illness Diabetes Surgical History H/O hernia repair Status post amputation of left great toe Status post below knee amputation of right lower extremity Status post debridement Status post incision and drainage Status post incision and drainage Social History Household Members: Spouse Household Members Other:: girlfriend Housing: House Do you presently have visiting nurse or other home services: No Alcohol intake: never Patient Tobacco Use Status: Current everyday Tobacco user Tobacco use type: Cigarette Cigarette Packs Per Day: 1.5 Cigarettes Per Day: 30.0 Years Smoked: 30 Smoked in Last 30 Days: Yes Second Hand Smoke Exposure: Yes Use of substances other than those prescribed or required for medical reasons: No Substance Use Type: Marijuana Advance Directives: Yes Advance Directives on File: Yes Advance Directives Date on File: 05/30/20 service: No Current occupational status: employed Meds Allergies Allergy/AdvReac Type Severity Reaction Status Date / Time gabapentin AdvReac Intermediate nausea, Verified 02/02/23 13:46 dizziness Active Medications: Current Medications Acetaminophen (Acetaminophen 325 Mg Tablet) 650 mg PO Q6H PRN PRN Reason: Pain, Mild (Pain Scale 1-3) Dextrose (Dextrose 50 % 25 Gm/50 Ml Syringe) 25 gm IVPUSH Q15M PRN; Protocol PRN Reason: per Hypoglycemia Standing Ord. Docusate Sodium (Docusate Sodium 100 Mg Capsule) 100 mg PO DAILY PRN PRN Reason: Constipation Glucose (Glucose Gel 15 Gm Gel..Gram.) 15 gm PO Q15M PRN; Protocol PRN Reason: per Hypoglycemia Standing Ord. Insulin Human Lispro (Insulin Lispro 100 Unit/Ml 3 Ml Vial) 0 [facility]; Protocol Ondansetron HCl (Ondansetron Hcl 4 Mg/2 Ml Vial) 4 mg IVPUSH Q8H PRN PRN Reason: Nausea and Vomiting Pharmacy Consult (Consult Rx Perform Med Rec) 1 each MISCELLANE ONCE PRN PRN Reason: Consult order Sodium Chloride (0.9 % Sodium Chloride Flush 3 Ml Syringe) 3 ml IVFLUSH [facility] Home Medications Medication Instructions Recorded Confirmed Last Taken Type glipizide 10 mg tablet, extended 10 mg PO DAILY 01/17/23 02/02/23 Unknown History release 24 hr insulin lispro 100 unit/mL 1 sliding scale dose subcut QIDACHS 01/17/23 02/02/23 Unknown History subcutaneous solution Physical Exam Vital Signs and Narrative: Vital Signs: Last Vital Signs Temp 98.6 F 02/20/23 08:10 Pulse 119 H 02/20/23 10:41 Resp 24 H 02/20/23 10:41 BP 160/114 H 02/20/23 10:41 Pulse Ox 97 02/20/23 10:41 O2 Del Method Room Air 02/20/23 10:41 BMI result Body Mass Index 39.6 Constitutional - Awake and Alert, No apparent distress Eyes - PERRLA, EOMI Cardiovascular - S1S2, RRR, No edema Respiratory - Normal lung expansion, increased work of breathing with accessory muscle usage, No respiratory distress, CTA bilaterally Gastrointestinal - NT / ND; +BS; No rebound or guarding Extremities - no calf tenderness, no swelling, s/p right bka Skin - Warm/Dry Neurological - somnolent but arousable, disoriented, aphasic, unable to participate in CN exam. 5/5 strength RUE, 2/5 strength LUE recoils slightly to pain, moving RLE freely, LLE with 4/5 strength to resistance Results Labs 02/20/23 08:06 02/20/23 08:06 Labs: Laboratory Results - last 24 hr 02/20/23 02/20/23 02/20/23 08:03 08:05 08:06 MCV 78.1 L MCH 24.1 L MCHC 30.8 L RDW 13.9 Plt Count 513 H D MPV 10.4 Immature Gran % (Auto) 0.4 Neut % (Auto) 82.6 H Lymph % (Auto) 9.1 L [place] % (Auto) 7.0 Eos % (Auto) 0.3 Baso % (Auto) 0.6 Lymph # (Auto) 0.8 L [place] # (Auto) 0.6 Eos # (Auto) 0.0 Baso # (Auto) 0.1 Abs Immat Gran (auto) 0.04 H Absolute Neuts (auto) 7.4 Absolute Nucleated RBC 0.000 Nucleated RBC % (auto) 0.0 PT Whole Blood PT 13.5 INR Whole Blood INR 1.1 APTT Anion Gap Estim Creat Clear Calc Estimated GFR POC Glucose 249 H Random Glucose Calcium Total Creatine Kinase 02/20/23 02/20/23 08:06 08:06 MCV MCH MCHC RDW Plt Count MPV Immature Gran % (Auto) Neut % (Auto) Lymph % (Auto) [place] % (Auto) Eos % (Auto) Baso % (Auto) Lymph # (Auto) [place] # (Auto) Eos # (Auto) Baso # (Auto) Abs Immat Gran (auto) Absolute Neuts (auto) Absolute Nucleated RBC Nucleated RBC % (auto) PT 12.7 Whole Blood PT INR 1.0 Whole Blood INR APTT 38.7 H Anion Gap 15 Estim Creat Clear Calc 56.4 Estimated GFR 39 POC Glucose Random Glucose 262 H Calcium 9.0 Total Creatine Kinase 208 H Imaging Radiologist's Impressions: Impressions Head CT 02/20/23 08:11 IMPRESSION: No acute intracranial process. There is a right posterior parietal and temporal lobe hypodensity likely old infarct unchanged to 01/17/2022 CT brain. No progression of the hypodensity seen on the present exam. This critical result was discussed with Dr. Sundeep Dumont at 8:26 AM.. It was ascertained that the content and urgency of the report was understood at the time of direct communication. Assessment and Plan (1) Acute CVA (cerebrovascular accident): Status: Acute (2) Atrial fibrillation: Status: Acute Plan 52-year-old male past medical history of diabetes, hypertension, hyperlipidemia, right BKA, diabetic neuropathy, HFrEF, persistent atrial fibrillation a nticoagulated, hx CVA 1 month ago with right middle cerebral artery territory infarction, hx noncompliance with medications admitted for acute CVA. #Acute CVA -CT without acute infarct. Pt remains aphasic and encephalopathic with LUE weakness on exam -Outside window for TPA and on anticoagulation -MRI ordered -risk factors include noncompliance medications with poorly controlled dm, afib with rvr, smoking, htn -ASA 300mg [place] ordered, continue asa daily -Lipid panel pending -Continue atorvastatin 80mg -Neuro consult -Bedside swallow eval, keep npo for now -PT/OT/[employer] evals pending #Acute metabolic encephalopathy -r/t CVA -monitor mentation #Increased WOB -CXR and BNP pending -Repeat trop pending #Persistent atrial fibrillation with rvr -Hold eliquis until seen by [employer]. Therapeutic Lovenox for anticoagulation for now -continue coreg once able to swallow -rate reasonably controlled following IV labetalol and metoprolol. Avoid lowering bp further if possible, monitor HR closely #HTN -hold po antihypertensives in setting of stroke #HfrEF -Echo with EF 25% -CXR, BNP pending -resume entresto, jardiance, [place] # insulin-dependent type 2 diabetes- with hyperglycemia -Last Hgb A1c 10.1% -Dose adjusted basal insulin, continue fara -Humalog on sliding scale -Diabetic diet once eval by [employer] DVT prophylaxis - therapeutic Lovenox Full code Patient requires inpatient stay of at least 2 midnights for management of acute CVA with AFib RVR Time Spent With Patient Time: Total time managing care of this patient today ____ minutes. Quality Stroke Does the patient have a stroke diagnosis?: Yes Reason for No Anti-thrombotic by Day Two: Drug treatment not indicated VTE Prior VTE?: No VTE Risk Level:: Medical - moderate - high VTE Device Contraindication: Treatment Not Indicated VTE Drug Contraindication: N/A - Med Ordered
[2023-02-20 12:16] LABS: Cholesterol 204 mg/dL; HDL Cholesterol 36 mg/dL; LDL Cholesterol Calculated 145 mg/dl; Triglycerides 115 mg/dL
--- NOTE | 2023-02-20 13:23 | PC.NURSE ---
pt GCS 8 - unable to complete bedside swallow eval d/t safety. Fernanda Marshall made aware.
--- NOTE | 2023-02-20 13:41 | PC.NURSE ---
MRI screening form filled out with pts gf at bedside. pt currently experiencing aphasia, unable to answer questions. pt with limited alertness. MRI made aware of this
[2023-02-20] MEDS: Aspirin 300 MG SUPP.RECT PR (13:49)
[2023-02-20 14:06] LABS: B Type Natriuretic Peptide 2594 pg/mL (<100)
--- NOTE | 2023-02-20 14:07 | MHC.SLORD ---
Speech Language Pathology Order Status: Attempted to see patient this pm. Patient asleep, could not be roused. Will re-attempt assessment 02/21 am
--- NOTE | 2023-02-20 14:11 | PHA.MEDREC ---
Pharmacy Consult ? Medication Reconciliation Pharmacy has completed the medication reconciliation. used list from [facility] and claim history.
[2023-02-20] MEDS: Furosemide 40 MG/4 ML VIAL IVPUSH (16:14)
--- NOTE | 2023-02-20 16:19 | PC.NURSE ---
pt had one episode of urinary incontinence. placed condom cath at this time. pt upon inspection is cool and clammy. checked POC - 238. checked rectal temp, was 99.3. LINWOOD Marshall made aware. repositioned pt with pillows, pt remains with HOB > 30 degrees for aspiration precautions. per gabriella, will given time after lasix administration to determine need for straight cath. at this time pt GCS 10, he is responsive to verbal cues, able to follow directions but remains non-verbal.
[2023-02-20] MEDS: 0.9 % Sodium Chloride Flush 3 ML SYRINGE IVFLUSH ×2 (16:24→21:43)
--- NOTE | 2023-02-20 16:27 | PC.NURSE ---
can go off cardiac monitoring to MRI per gabriella PALUMBO
[2023-02-20 16:28] LABS: Glucose, Whole Blood 238 mg/dL (60-115)
[2023-02-20 18:04] LABS: Glucose, Whole Blood 231 mg/dL (60-115)
[2023-02-20 20:52] LABS: Glucose, Whole Blood 230 mg/dL (60-115)
[2023-02-20] MEDS: Enoxaparin Sodium 120 MG/0.8 ML SYRINGE SUBCUT (21:42)
[2023-02-20] MEDS: Digoxin 0.5 MG/2 ML AMPUL 0.25 MG IVPUSH (21:42)
[2023-02-20] MEDS: Insulin Lispro 100 UNIT/ML 3 ML VIAL SUBCUT (22:20)
[2023-02-20] MEDS: Albuterol/Iprat 2.5/0.5MG 3 ML AMPUL.NEB INHALE (22:30)
[2023-02-20] MEDS: Furosemide 100 MG/10 ML VIAL 60 MG IVPUSH (22:43)
[2023-02-20 23:04] LABS: Troponin-I High Sensitivity 62.5 ng/L (<3.5-35.0)
[2023-02-21] VITALS (17 sets, daily range): BP systolic 103–210; BP diastolic 62–130; PULSE 95–140; RESP 12–40; TEMP 32–40.3; O2SAT 91–100
--- NOTE | 2023-02-21 | EEG_ITS ---
FINDINGS: The waking background activity consists of a poorly-defined, low voltage theta of 7 to 8 hertz intermixed with low voltage fast frequencies and intermittent slower frequencies of 4 to 5 hertz seen from the left temporal region. Photic stimulation is without activation. Hyperventilation was omitted. IMPRESSION: This is an abnormal EEG due to mild diffuse background slowing and more focal slowing seen in the left temporal region consistent with an underlying encephalopathy and a focal abnormality in the left temporal region. Clinical correlation is suggested. MD DOMI Benjamin/AARON / [id number]
[2023-02-21] MEDS: Digoxin 0.5 MG/2 ML AMPUL 0.25 MG IVPUSH (05:34)
[2023-02-21 07:09] LABS: Glucose, Whole Blood 212 mg/dL (60-115)
[2023-02-21 07:10] LABS: Glucose, Whole Blood 193 mg/dL (60-115)
[2023-02-21 07:12] LABS: Glucose, Whole Blood 179 mg/dL (60-115)
[2023-02-21 08:03] LABS: MANUAL DIFF FLAG NO
[2023-02-21 08:16] LABS: Basophils Absolute Auto 0.1 X10*3/uL (0.0-0.2); Basophils Percent Auto 0.4 % (0-2); Eosinophils Percent Auto 0.2 % (0-4); Hemoglobin 11.6 g/dl (14.0-18.0); Imm Gran Abs Auto 0.08 X10*3/uL (0.00-0.03); Imm Gran Pct Auto 0.6 % (0.0-0.4); Mean Corpuscular HGB Conc 31.4 g/dl (31.0-36.0); Mean Corpuscular Hemoglobin 24.2 pg (27.0-33.0); Mean Corpuscular Volume 77.2 fL (80.0-98.0); Mean Platelet Volume 10.5 fL (9.4-12.4); Monocytes Absolute Auto 1.5 X10*3/uL (0.1-1.2); Monocytes Percent Auto 11.7 % (2-11); Neutrophils Absolute Auto 9.9 x10*3/uL (2.0-8.3); Neutrophils Percent Auto 79.1 % (45-73); Platelet Count 457 X10*3/uL (160-400); Red Blood Count 4.79 X10*6/uL (4.60-5.80); Red Cell Distribution Width 14.1 % (11.0-16.0); White Blood Count 12.6 X10*3/uL (4.8-10.8)
[2023-02-21 08:21] LABS: Anion Gap 15 (12-20); Blood Urea Nitrogen 23 mg/dL (9-16); Calcium 8.5 mg/dL (8.4-10.2); Carbon Dioxide 23 mmol/L (22-29); Chloride 107 mmol/L (96-108); Creatinine Clr Calc Pharmacy 52.2; Estimated Glomerular Filt Rate 35; Glucose Random 206 mg/dL (60-115); Potassium 3.8 mmol/L (3.3-5.1); Sodium 141 mmol/L (135-145)
--- NOTE | 2023-02-21 10:43 | PM.CNCAR ---
History of Present Illness History of Present Illness Date of Service: 02/21/23 Requesting physician: Casandra Herndon Consult reason: atrial fibrillation and congestive heart failure Chief complaint: STROKE Narrative: I was consulted to see Declan in cardiology consultation today for atrial fibrillation rapid ventricular response and heart failure with reduced ejection fraction with possible new stroke. History was obtained from the chart as patient is not able to provide any history. Patient was brought into the emergency room as notices that he was not speaking and not moving the left side of his body. Unclear if this is new symptom. But appears that he was asymptomatic prior to going to bed. Was brought to the emergency room and was noted to be in atrial fibrillation rapid ventricular response with significant elevated BNP. Patient appears short of breath at bedside. He was given digoxin because of difficult control rate and softer blood pressure as per the hospitalist team yesterday. However he noted to be markedly hypertensive and remains in atrial fibrillation rapid ventricular response. He had a repeat CT scan of the head which did not show any new lesions but shows old infarcted lesions. There is history of noncompliance. Unclear if patient was taking any of his meds Review of Systems Review of Systems: Yes Unobtainable due to mental status PMFSH Past Medical History Medical History Asthma Benign essential hypertension BKA stump complication Callus under metatarsal head Cardiomyopathy Chronic painful diabetic neuropathy CKD (chronic kidney disease) stage 3, GFR 30-59 ml/min Diabetes mellitus Diabetes mellitus Diabetic foot Diabetic ulcer of foot associated with diabetes mellitus due to underlying condition, with fat layer exposed Dry gangrene Foot abscess, right Gram positive sepsis Hyperlipidemia LDL goal <100 Lumbar degenerative disc disease Neuropathy Obesity Obesity (BMI 30-39.9) Osteomyelitis of ankle or foot, acute Osteomyelitis of left foot Pure hypercholesterolemia Smoker Umbilical hernia Family History Family History Father Medical history unknown Mother Asthma Hypertension Diabetes Brother Chronic mental illness Diabetes Surgical History Surgical History H/O hernia repair Status post amputation of left great toe Status post below knee amputation of right lower extremity Status post debridement Status post incision and drainage Status post incision and drainage Social History Social History Household Members: Other Household Members Other:: girlfriend Housing: House Housing Other:: unable to assess Unable to assess alcohol history related to: Unable to respond Alcohol intake: never Patient Tobacco Use Status: Tobacco use Unknown Tobacco use type: Cigarette Cigarette Packs Per Day: 1.5 Cigarettes Per Day: 30.0 Years Smoked: 30 Second Hand Smoke Exposure: Yes Substance Use Type: Marijuana Advance Directives Date on File: 05/30/20 service: No Current occupational status: employed Meds Allergies Allergy/AdvReac Type Severity Reaction Status Date / Time gabapentin AdvReac Intermediate nausea, Verified 02/02/23 13:46 dizziness Active Medications: Current Medications Acetaminophen (Acetaminophen 325 Mg Tablet) 650 mg PO Q6H PRN PRN Reason: Pain, Mild (Pain Scale 1-3) Albuterol Sulfate (Albuterol Sulfate 90 Mcg 8 Gm Inhaler) 2 puff INHALE Q4H PRN PRN Reason: Shortness Of Breath Or Wheezing Dextrose (Dextrose 50 % 25 Gm/50 Ml Syringe) 25 gm IVPUSH Q15M PRN; Protocol PRN Reason: per Hypoglycemia Standing Ord. Docusate Sodium (Docusate Sodium 100 Mg Capsule) 100 mg PO DAILY PRN PRN Reason: Constipation Enoxaparin Sodium (Enoxaparin Sodium 120 Mg/0.8 Ml Syringe) 120 mg 1 mg/kg (120 mg) SUBCUT Q12H [facility] Last Admin: 02/20/23 21:42 Dose: 120 mg Furosemide (Furosemide 40 Mg/4 Ml Vial) 40 mg IVPUSH DAILY [facility]; Protocol Glucose (Glucose Gel 15 Gm Gel..Gram.) 15 gm PO Q15M PRN; Protocol PRN Reason: per Hypoglycemia Standing Ord. Insulin Glargine (Insulin Glargine,Hum.Rec.Anlog 100 Unit/Ml 10 Ml Vial) 8 unit SUBCUT BEDTIME [facility] Last Admin: 02/20/23 22:21 Dose: Not Given Insulin Human Lispro (Insulin Lispro 100 Unit/Ml 3 Ml Vial) 0 unit SUBCUT QIDACHS [facility]; Protocol Last Admin: 02/21/23 07:45 Dose: Not Given Labetalol HCl (Labetalol Hcl 100 Mg/20 Ml Vial) 10 mg IVPUSH Q4H PRN PRN Reason: SBP>170 Ondansetron HCl (Ondansetron Hcl 4 Mg/2 Ml Vial) 4 mg IVPUSH Q8H PRN PRN Reason: Nausea and Vomiting Pharmacy Consult (Consult Rx Perform Med Rec) 1 each MISCELLANE ONCE PRN PRN Reason: Consult order Sodium Chloride (0.9 % Sodium Chloride Flush 3 Ml Syringe) 3 ml IVFLUSH QSHIFT [facility] Last Admin: 02/20/23 21:43 Dose: 3 ml Home Medications Medication Instructions Recorded Confirmed Last Taken Type albuterol sulfate 90 mcg/actuation 2 puff inhalation Q4-6H PRN 02/20/23 02/20/23 Unknown History aerosol inhaler (Ventolin HFA) Shortness Of Breath Or Wheezing atorvastatin 80 mg tablet 80 mg PO BEDTIME 02/20/23 02/20/23 Unknown History Physical Exam Vital Signs: Vital Signs: Last Vital Signs Temp 98.3 F 02/21/23 07:10 Pulse 126 H 02/21/23 07:10 Resp 18 02/21/23 07:10 BP 190/102 H 02/21/23 07:10 Pulse Ox 91 L 02/21/23 07:10 O2 Del Method Room Air 02/21/23 07:10 BMI result Body Mass Index 39.6 Const: General: in distress moderate and respiratory and patient obtunded Nutritional Appearance: obese Orientation/consciousness: patient obtunded HEENT: Head: Yes normocephalic and Yes atraumatic Neck: Neck: Yes trachea midline, Yes supple and Yes JVD Resp: Effort & Inspection: decreased respiratory effort Auscultation: diminished lung sounds bilateral in the lower lung [place] Cardio: Jugular venous distension: JVD Rate: tachycardic Rhythm: abnormal rhythm irregularly irregular Heart sounds: S1 normal heart sound present, S2 normal heart sound present, no click, no murmurs and no rubs GI: Auscultation: normal bowel sounds Skin: General skin exam: no rashes or lesions noted Neuro: General: patient obtunded Extrem: General: No clubbing, No cyanosis and Yes edema Objective Labs and Meds 02/21/23 07:48 02/21/23 07:48 Lab results: Laboratory Results - last 24 hr 02/20/23 02/20/23 02/20/23 08:06 13:18 13:18 WBC RBC Hgb Hct MCV MCH MCHC RDW Plt Count MPV Immature Gran % (Auto) Neut % (Auto) Lymph % (Auto) [place] % (Auto) Eos % (Auto) Baso % (Auto) Lymph # (Auto) [place] # (Auto) Eos # (Auto) Baso # (Auto) Abs Immat Gran (auto) Absolute Neuts (auto) Absolute Nucleated RBC Nucleated RBC % (auto) Sodium Potassium Chloride Carbon Dioxide Anion Gap BUN Creatinine Estim Creat Clear Calc Estimated GFR POC Glucose Random Glucose Calcium Troponin I High Sens 50.0 H B-Natriuretic Peptide 2594 H Triglycerides 115 Cholesterol 204 LDL Cholesterol, Calc 145 HDL Cholesterol 36 02/20/23 02/20/23 02/20/23 16:08 17:58 20:44 WBC RBC Hgb Hct MCV MCH MCHC RDW Plt Count MPV Immature Gran % (Auto) Neut % (Auto) Lymph % (Auto) [place] % (Auto) Eos % (Auto) Baso % (Auto) Lymph # (Auto) [place] # (Auto) Eos # (Auto) Baso # (Auto) Abs Immat Gran (auto) Absolute Neuts (auto) Absolute Nucleated RBC Nucleated RBC % (auto) Sodium Potassium Chloride Carbon Dioxide Anion Gap BUN Creatinine Estim Creat Clear Calc Estimated GFR POC Glucose 238 H 231 H 230 H Random Glucose Calcium Troponin I High Sens B-Natriuretic Peptide Triglycerides Cholesterol LDL Cholesterol, Calc HDL Cholesterol 02/20/23 02/21/23 02/21/23 22:39 05:41 06:01 WBC RBC Hgb Hct MCV MCH MCHC RDW Plt Count MPV Immature Gran % (Auto) Neut % (Auto) Lymph % (Auto) [place] % (Auto) Eos % (Auto) Baso % (Auto) Lymph # (Auto) [place] # (Auto) Eos # (Auto) Baso # (Auto) Abs Immat Gran (auto) Absolute Neuts (auto) Absolute Nucleated RBC Nucleated RBC % (auto) Sodium Potassium Chloride Carbon Dioxide Anion Gap BUN Creatinine Estim Creat Clear Calc Estimated GFR POC Glucose 193 H 212 H Random Glucose Calcium Troponin I High Sens 62.5 H B-Natriuretic Peptide Triglycerides Cholesterol LDL Cholesterol, Calc HDL Cholesterol 02/21/23 02/21/23 02/21/23 07:08 07:48 07:48 WBC 12.6 H RBC 4.79 Hgb 11.6 L Hct 37.0 L MCV 77.2 L MCH 24.2 L MCHC 31.4 RDW 14.1 Plt Count 457 H MPV 10.5 Immature Gran % (Auto) 0.6 H Neut % (Auto) 79.1 H Lymph % (Auto) 8.0 L [place] % (Auto) 11.7 H Eos % (Auto) 0.2 Baso % (Auto) 0.4 Lymph # (Auto) 1.0 L [place] # (Auto) 1.5 H Eos # (Auto) 0.0 Baso # (Auto) 0.1 Abs Immat Gran (auto) 0.08 H Absolute Neuts (auto) 9.9 H Absolute Nucleated RBC 0.000 Nucleated RBC % (auto) 0.0 Sodium 141 Potassium 3.8 Chloride 107 Carbon Dioxide 23 Anion Gap 15 BUN 23 H Creatinine 2.00 H Estim Creat Clear Calc 52.2 Estimated GFR 35 POC Glucose 179 H Random Glucose 206 H Calcium 8.5 Troponin I High Sens B-Natriuretic Peptide Triglycerides Cholesterol LDL Cholesterol, Calc HDL Cholesterol EKG shows atrial fibrillation rapid ventricular response with low-voltage QRS Imaging Radiologist's impression: Impressions Chest X-Ray 02/20/23 12:00 IMPRESSION: Mild bibasilar linear markings likely secondary to suboptimal inspiration positioning representing atelectasis. Overall appearance is similar. If symptoms persist or worsen, PA and lateral views of the chest are recommended. Chest CT 02/20/23 16:47 IMPRESSION: Mild cardiomegaly and moderate-sized bilateral pleural effusions with associated bilateral lower lobe atelectasis. Findings are suggestive of CHF Fleischner guidelines were followed. Assessment and Plan (1) Atrial fibrillation with rapid ventricular response: Status: Acute Patient with atrial fibrillation with difficult control rate with poor compliance as outpatient, not sure if he is taking any medications. Blood pressure is currently quite elevated. Given his severe LV systolic dysfunction would avoid calcium channel blockers. Will start him on metoprolol 25 mg q.6 hours if he is taking medications orally otherwise use IV metoprolol to control his heart rate. He has been given digoxin loading. Should be on oral anticoagulation therapy due to prior CVA and high risk for recurrent CVA and with presenting symptoms of neurologic issues altered mental status highly likely that he could have had another embolic event although initial CT scan was negative. Overall prognosis is poor (2) Decompensated heart failure: Status: Acute Decompensated congestive heart failure with severe LV systolic dysfunction most likely ischemic cardiomyopathy and a component tachycardia mediated cardiomyopathy with rapid atrial fibrillation. Were prognosis guarded. Proceed with IV diuresis with Lasix 40 mg IV b.i.d.. Strict intake and output chart needs to be pursued. Better rate control needs to be pursued and start metoprolol as above. Again prognosis is poor as patient is noncompliant with his medications and workup in the past. Will follow with you Time Spent With Patient Time: Total time managing care of this patient today ____ minutes. Procedures Date of Service Date of Service: 02/21/23
[2023-02-21] MEDS: 0.9 % Sodium Chloride Flush 3 ML SYRINGE IVFLUSH (10:50)
[2023-02-21] MEDS: Enoxaparin Sodium 120 MG/0.8 ML SYRINGE SUBCUT (10:50)
[2023-02-21] MEDS: Furosemide 40 MG/4 ML VIAL IVPUSH ×2 (10:50→17:56)
[2023-02-21 11:05] LABS: Glucose, Whole Blood 180 mg/dL (60-115)
[2023-02-21] MEDS: Labetalol HCL 100 MG/20 ML VIAL 10 MG IVPUSH ×2 (11:08→16:48)
--- NOTE | 2023-02-21 13:47 | MHC.CM.PN ---
Pt admitted with dx stroke. CM did intake assessment with pts girlfriend/HCP Marli due to pt unarousable/obtunded. Pt lives with girlfriend/HCP Marli. Pt was active with [facility] for SN/PT 3x/wk and used a walker. DCP: return home with resumption of [facility] vs acute rehab. Transportation via [facility] is acute rehab, girlfriend to transport if returning home. HCP on file and verified. PCP: Gabe Chisholm
--- NOTE | 2023-02-21 14:27 | MHC.SPEECHCO ---
FACTORY MACHINE COMPUTER OPERATOR attempted with Pt with present. She was unable to get him to open his eyes or verbally respond. FACTORY MACHINE COMPUTER OPERATOR provided sternal rub, resulting in Pt shaking his head no. Pt was provided Ice Chips to lips with no attempt by the Pt to take them PO. Moistened swab was accepted breifly however the Pt began to turn his head away and refuse. Pt remains inappropriate for PO. FACTORY MACHINE COMPUTER OPERATOR will continue to follow for increased alertness.
--- NOTE | 2023-02-21 15:32 | HO.PM.IMPN ---
Subjective Subjective Date of Service: 02/21/23 Interval History: Seen and evaluated this morning Significantly elevated BP Heart rate better controlled Patient still altered and barely opening eyes to stimuli Review of Systems Review of Systems: Yes Unobtainable due to mental status Physical Exam Vital Signs: Vital Signs: Last Vital Signs Temp 98.7 F 02/21/23 10:59 Pulse 98 02/21/23 10:59 Resp 20 02/21/23 10:59 BP 190/98 H 02/21/23 10:59 Pulse Ox 94 02/21/23 10:59 O2 Del Method Room Air 02/21/23 10:59 BMI result Body Mass Index 39.6 Const: Other: Constitutional : altered, not in distress Neck : Normal inspection, Supple Cardiovascular : irregular irregular, no JVP, no lower extremity edema Respiratory : good bilateral air entry, basal bilateral crackles Gastrointestinal: soft, lax, Normal bowel sounds, Non tender Skin : Warm, Dry Neurological : obtunded, response with grimacing to painful stimuli, vague sounds, Left sided weakness Objective Data Active Medications Acetaminophen (Acetaminophen 325 Mg Tablet) 650 mg PO Q6H PRN PRN Reason: Pain, Mild (Pain Scale 1-3) Albuterol Sulfate (Albuterol Sulfate 90 Mcg 8 Gm Inhaler) 2 puff INHALE Q4H PRN PRN Reason: Shortness Of Breath Or Wheezing Dextrose (Dextrose 50 % 25 Gm/50 Ml Syringe) 25 gm IVPUSH Q15M PRN; Protocol PRN Reason: per Hypoglycemia Standing Ord. Docusate Sodium (Docusate Sodium 100 Mg Capsule) 100 mg PO DAILY PRN PRN Reason: Constipation Enoxaparin Sodium (Enoxaparin Sodium 120 Mg/0.8 Ml Syringe) 120 mg 1 mg/kg (120 mg) SUBCUT Q12H [facility] Last Admin: 02/21/23 10:50 Dose: 120 mg Documented By: NICK Furosemide (Furosemide 40 Mg/4 Ml Vial) 40 mg IVPUSH DAILY [facility]; Protocol Last Admin: 02/21/23 10:50 Dose: 40 mg Documented By: NICK Glucose (Glucose Gel 15 Gm Gel..Gram.) 15 gm PO Q15M PRN; Protocol PRN Reason: per Hypoglycemia Standing Ord. Insulin Glargine (Insulin Glargine,Hum.Rec.Anlog 100 Unit/Ml 10 Ml Vial) 8 unit SUBCUT BEDTIME [facility] Last Admin: 02/20/23 22:21 Dose: Not Given Documented By: CHRIS Non-Admin Reason: Physician Approved Insulin Human Lispro (Insulin Lispro 100 Unit/Ml 3 Ml Vial) 0 unit SUBCUT QIDACHS [facility]; Protocol Last Admin: 02/21/23 12:13 Dose: Not Given Documented By: NICK Non-Admin Reason: NPO Labetalol HCl (Labetalol Hcl 100 Mg/20 Ml Vial) 10 mg IVPUSH Q4H PRN PRN Reason: SBP>170 Last Admin: 02/21/23 11:08 Dose: 10 mg Documented By: NICK Morphine Sulfate (Morphine Sulfate 2 Mg/Ml Cartridge) 1 mg IM Q4H PRN; Protocol PRN Reason: Pain, Severe (Pain Scale 7-10) Ondansetron HCl (Ondansetron Hcl 4 Mg/2 Ml Vial) 4 mg IVPUSH Q8H PRN PRN Reason: Nausea and Vomiting Pharmacy Consult (Consult Rx Perform Med Rec) 1 each MISCELLANE ONCE PRN PRN Reason: Consult order Sodium Chloride (0.9 % Sodium Chloride Flush 3 Ml Syringe) 3 ml IVFLUSH QSHIFT [facility] Last Admin: 02/21/23 10:50 Dose: 3 ml Documented By: NICK Labs 02/21/23 07:48 02/21/23 07:48 Labs: Laboratory Results - last 24 hr 02/20/23 02/20/23 02/20/23 16:08 17:58 20:44 MCV MCH MCHC RDW Plt Count MPV Immature Gran % (Auto) Neut % (Auto) Lymph % (Auto) [place] % (Auto) Eos % (Auto) Baso % (Auto) Lymph # (Auto) [place] # (Auto) Eos # (Auto) Baso # (Auto) Abs Immat Gran (auto) Absolute Neuts (auto) Absolute Nucleated RBC Nucleated RBC % (auto) Anion Gap Estim Creat Clear Calc Estimated GFR POC Glucose 238 H 231 H 230 H Random Glucose Calcium 02/21/23 02/21/23 02/21/23 05:41 06:01 07:08 MCV MCH MCHC RDW Plt Count MPV Immature Gran % (Auto) Neut % (Auto) Lymph % (Auto) [place] % (Auto) Eos % (Auto) Baso % (Auto) Lymph # (Auto) [place] # (Auto) Eos # (Auto) Baso # (Auto) Abs Immat Gran (auto) Absolute Neuts (auto) Absolute Nucleated RBC Nucleated RBC % (auto) Anion Gap Estim Creat Clear Calc Estimated GFR POC Glucose 193 H 212 H 179 H Random Glucose Calcium 02/21/23 02/21/23 02/21/23 07:48 07:48 11:02 MCV 77.2 L MCH 24.2 L MCHC 31.4 RDW 14.1 Plt Count 457 H MPV 10.5 Immature Gran % (Auto) 0.6 H Neut % (Auto) 79.1 H Lymph % (Auto) 8.0 L [place] % (Auto) 11.7 H Eos % (Auto) 0.2 Baso % (Auto) 0.4 Lymph # (Auto) 1.0 L [place] # (Auto) 1.5 H Eos # (Auto) 0.0 Baso # (Auto) 0.1 Abs Immat Gran (auto) 0.08 H Absolute Neuts (auto) 9.9 H Absolute Nucleated RBC 0.000 Nucleated RBC % (auto) 0.0 Anion Gap 15 Estim Creat Clear Calc 52.2 Estimated GFR 35 POC Glucose 180 H Random Glucose 206 H Calcium 8.5 Assessment and Plan (1) Decompensated heart failure: Status: Acute (2) Atrial fibrillation with rapid ventricular response: Status: Acute (3) Acute CVA (cerebrovascular accident): Status: Acute (4) Diabetes mellitus: Status: Acute (5) New onset of congestive heart failure: Status: Acute Plan 52-year-old male past medical history of diabetes, hypertension, hyperlipidemia, right BKA, diabetic neuropathy, HFrEF, persistent atrial fibrillation anticoagulated, hx CVA 1 month ago with right middle cerebral artery territory infarction, hx noncompliance with medications admitted for acute CVA. # suspected Acute CVA CT without acute infarct. remains aphasic and encephalopathic MRI pending Neurology eval pending ASA 300mg NV daily Continue atorvastatin 80mg Failed Bedside swallow , keep npo for now PT/OT/PLASTER DIE MAKER evals pending #Acute metabolic encephalopathy Likely r/t CVA recurrent reorientation # CHF exacerbation CT chest showing effusions and atelactasis CXR and BNP suggestive To give lasix as needed given no oral intake resume entresto, jardiance, bb when tolerates po monitor I\O #Persistent atrial fibrillation with rvr Hold eliquis until seen by PLASTER DIE MAKER. Therapeutic Lovenox for anticoagulation for now continue coreg once able to swallow rate control with IV labetalol # Elevated HTN from holding po antihypertensives Labetalol IV PRN # insulin-dependent type 2 diabetes- with hyperglycemia Last Hgb A1c 10.1% Dose adjusted basal insulin, continue jardiance Humalog on sliding scale Diabetic diet once eval by PLASTER DIE MAKER DVT prophylaxis therapeutic Lovenox Full code Patient requires inpatient stay overnight for management of acute CVA with AFib RVR and uncontrolled HTN w AMS Time Spent With Patient Time: Total time managing care of this patient today ____ minutes. Quality Stroke Does the patient have a stroke diagnosis?: Yes Reason for No Anti-thrombotic by Day Two: Drug treatment not indicated VTE Prior VTE?: No VTE Risk Level:: Medical - moderate - high VTE Device Contraindication: Treatment Not Indicated VTE Drug Contraindication: N/A - Med Ordered
[2023-02-21 16:28] LABS: Glucose, Whole Blood 190 mg/dL (60-115)
--- NOTE | 2023-02-21 16:40 | PM.NEUROCN ---
History of Present Illness Data of Consult Service Date: 02/21/23 Primary Care Provider: Gabe Chisholm MD HPI Reason for consult: aphasia and left sided weakness This is a 52-year-old male with h/o diabetes since age 33, hypertension, hyperlipidemia, right BKA, diabetic neuropathy, CHF, CAD, and SHI who had a right parietal ischemic stroke on 01/15/23 and felt his left dominant hand to be weak . It improved but not back to normal. No previous stroke Hx. He is readmitted with aphasia and left sided weakness. He is supposed to be on Eliquis but has poor compliance with meds. Head CT showed the previous right parietal infarct . January 17, 2023 MRI showed acute right parietal infarct in MCA distribution. Carotid US negative for carotid disease. Review of Systems Review of Systems: Yes Unobtainable due to mental condition and Unobtainable due to mental status Neurologic: Reports Sensory deficit (Neuro) PMFSH Past Medical History Medical History Asthma Benign essential hypertension BKA stump complication Callus under metatarsal head Cardiomyopathy Chronic painful diabetic neuropathy CKD (chronic kidney disease) stage 3, GFR 30-59 ml/min Diabetes mellitus Diabetes mellitus Diabetic foot Diabetic ulcer of foot associated with diabetes mellitus due to underlying condition, with fat layer exposed Dry gangrene Foot abscess, right Gram positive sepsis Hyperlipidemia LDL goal <100 Lumbar degenerative disc disease Neuropathy Obesity Obesity (BMI 30-39.9) Osteomyelitis of ankle or foot, acute Osteomyelitis of left foot Pure hypercholesterolemia Smoker Umbilical hernia Family History Family History Father Medical history unknown Mother Asthma Hypertension Diabetes Brother Chronic mental illness Diabetes Surgical History Surgical History H/O hernia repair Status post amputation of left great toe Status post below knee amputation of right lower extremity Status post debridement Status post incision and drainage Status post incision and drainage Social History Social History Household Members: Other Household Members Other:: girlfriend Housing: House Housing Other:: unable to assess Unable to assess alcohol history related to: Unable to respond Alcohol intake: never Patient Tobacco Use Status: Tobacco use Unknown Tobacco use type: Cigarette Cigarette Packs Per Day: 1.5 Cigarettes Per Day: 30.0 Years Smoked: 30 Second Hand Smoke Exposure: Yes Substance Use Type: Marijuana Advance Directives Date on File: 05/30/20 service: No Current occupational status: employed Meds Allergies Allergy/AdvReac Type Severity Reaction Status Date / Time gabapentin AdvReac Intermediate nausea, Verified 02/02/23 13:46 dizziness Active Medications: Current Medications Acetaminophen (Acetaminophen 325 Mg Tablet) 650 mg PO Q6H PRN PRN Reason: Pain, Mild (Pain Scale 1-3) Albuterol Sulfate (Albuterol Sulfate 90 Mcg 8 Gm Inhaler) 2 puff INHALE Q4H PRN PRN Reason: Shortness Of Breath Or Wheezing Aspirin (Aspirin 300 Mg Supp.Rect) 300 mg FL DAILY SUPRIYA Dextrose (Dextrose 50 % 25 Gm/50 Ml Syringe) 25 gm IVPUSH Q15M PRN; Protocol PRN Reason: per Hypoglycemia Standing Ord. Docusate Sodium (Docusate Sodium 100 Mg Capsule) 100 mg PO DAILY PRN PRN Reason: Constipation Enoxaparin Sodium (Enoxaparin Sodium 120 Mg/0.8 Ml Syringe) 120 mg 1 mg/kg (120 mg) SUBCUT Q12H SUPRIYA Last Admin: 02/21/23 10:50 Dose: 120 mg Furosemide (Furosemide 40 Mg/4 Ml Vial) 40 mg IVPUSH DAILY SUPRIYA; Protocol Last Admin: 02/21/23 10:50 Dose: 40 mg Glucose (Glucose Gel 15 Gm Gel..Gram.) 15 gm PO Q15M PRN; Protocol PRN Reason: per Hypoglycemia Standing Ord. Insulin Glargine (Insulin Glargine,Hum.Rec.Anlog 100 Unit/Ml 10 Ml Vial) 8 unit SUBCUT BEDTIME [facility] Last Admin: 02/20/23 22:21 Dose: Not Given Insulin Human Lispro (Insulin Lispro 100 Unit/Ml 3 Ml Vial) 0 unit SUBCUT QIDACHS [facility]; Protocol Last Admin: 02/21/23 12:13 Dose: Not Given Labetalol HCl (Labetalol Hcl 100 Mg/20 Ml Vial) 10 mg IVPUSH Q4H PRN PRN Reason: SBP>170 Last Admin: 02/21/23 11:08 Dose: 10 mg Lorazepam (Lorazepam 2 Mg/Ml Vial) 2 mg IVPUSH ONCE PRN PRN Reason: anxiety/restlessness Morphine Sulfate (Morphine Sulfate 2 Mg/Ml Cartridge) 1 mg IM Q4H PRN; Protocol PRN Reason: Pain, Severe (Pain Scale 7-10) Ondansetron HCl (Ondansetron Hcl 4 Mg/2 Ml Vial) 4 mg IVPUSH Q8H PRN PRN Reason: Nausea and Vomiting Pharmacy Consult (Consult Rx Perform Med Rec) 1 each MISCELLANE ONCE PRN PRN Reason: Consult order Sodium Chloride (0.9 % Sodium Chloride Flush 3 Ml Syringe) [facility] Last Admin: 02/21/23 10:50 Dose: 3 ml Home Medications Medication Instructions Recorded Confirmed Last Taken Type albuterol sulfate 90 mcg/actuation 2 puff inhalation Q4-6H PRN 02/20/23 02/20/23 Unknown History aerosol inhaler (Ventolin HFA) Shortness Of Breath Or Wheezing atorvastatin 80 mg tablet 80 mg PO BEDTIME 02/20/23 02/20/23 Unknown History Physical Exam Vital Signs: Vital Signs: Last Vital Signs Temp 98.7 F 02/21/23 10:59 Pulse 98 02/21/23 10:59 Resp 20 02/21/23 10:59 BP 190/98 H 02/21/23 10:59 Pulse Ox 94 02/21/23 10:59 O2 Del Method Room Air 02/21/23 10:59 BMI result Body Mass Index 39.6 Const: Other: Constitutional : altered, not in distress Neck : Normal inspection, Supple Cardiovascular : irregular irregular, no JVP, no lower extremity edema Respiratory : good bilateral air entry, basal bilateral crackles Gastrointestinal: soft, lax, Normal bowel sounds, Non tender Skin : Warm, Dry Neurological : obtunded, response with grimacing to painful stimuli, vague sounds, Left sided weakness General: in distress moderate and respiratory and patient obtunded Nutritional Appearance: obese Orientation/consciousness: patient obtunded Limitations: altered mental status HEENT: Head: Yes normal to inspection, Yes normocephalic and Yes atraumatic Ears: external ears normal General nose exam: Normal external nose present Mouth: Normal oral and palatal mucosa present and oropharynx normal Throat: Yes posterior oropharynx normal Eyes: General: appearance normal, both eyes and all related structures Neck: Other: supple Neck: Yes normal visual inspection, Yes trachea midline, Yes supple and Yes JVD Chest: Chest palpation & inspection: normal inspection of the chest Resp: Effort & Inspection: decreased respiratory effort Auscultation: clear to auscultation bilaterally and diminished lung sounds bilateral in the lower lung [place] Cardio: Other: tachycardia IRRR Jugular venous distension: no JVD and JVD Rate: tachycardic Rhythm: abnormal rhythm irregularly irregular Heart sounds: S1 normal heart sound present, S2 normal heart sound present, no click, no murmurs and no rubs GI: Inspection: Yes normal to inspection Palpation (GI): Soft to palpation, nontender and No hepatosplenomegaly present Auscultation: normal bowel sounds : General: Yes no CVA tenderness Back/Spine/Pelvis: Back: no CVA tenderness Skin: General skin exam: no rashes or lesions noted Neuro: Other: lethargic . global aphasia. Does not verbalize or follow commands. Left facial droop and flaccid left hemiplegia. Moves right side spontaneously. General: patient obtunded Sensory Exam: Sensory deficit (Neuro) Extrem: Other: right AKA, left foot partial amputation General: Yes normal to inspection, No clubbing, No cyanosis and Yes edema Psych: Appearance: grossly normal Results Labs 02/21/23 07:48 02/21/23 07:48 Labs: Short CBC 02/21/23 Range/Units 07:48 WBC 12.6 H (4.8-10.8) X10*3/uL Hgb 11.6 L (14.0-18.0) g/dl Hct 37.0 L (42.0-52.0) % Plt Count 457 H (160-400) X10*3/uL BMP 02/21/23 07:48 Sodium 141 Potassium 3.8 Chloride 107 Carbon Dioxide 23 BUN 23 H Creatinine 2.00 H Calcium 8.5 Assessment and Plan (1) Acute CVA (cerebrovascular accident): Status: Acute Acute completed right MCA infarct with global aphasia and left hemiplegia. Atrial fib. Previou srit hemisphere stroke 1 month ago with good recovery. Patientr non compliant with anticoagulation. Not a cand idate for tpa. Recom. PT OT and pseech therapy and speech andswallowing evaluation. Follow up CT head on Mon or Monday (2) Decompensated heart failure: Status: Acute (3) Atrial fibrillation with rapid ventricular response: Status: Acute (4) Diabetes mellitus: Status: Acute (5) New onset of congestive heart failure: Status: Acute Plan 52-year-old male past medical history of diabetes, hypertension, hyperlipidemia, right BKA, diabetic neuropathy, HFrEF, persistent atrial fibrillation anticoagulated, hx CVA 1 month ago with right middle cerebral artery territory infarction, hx noncompliance with medications admitted for acute CVA. # suspected Acute CVA CT without acute infarct. remains aphasic and encephalopathic MRI pending Neurology eval pending ASA 300mg FL daily Continue atorvastatin 80mg Failed Bedside swallow , keep npo for now PT/OT/SPEECH LANGUAGE PATHOLOGIST TRAVEL evals pending #Acute metabolic encephalopathy Likely r/t CVA recurrent reorientation # CHF exacerbation CT chest showing effusions and atelactasis CXR and BNP suggestive To give lasix as needed given no oral intake resume entresto, jardiance, bb when tolerates po monitor I\O #Persistent atrial fibrillation with rvr Hold eliquis until seen by SPEECH LANGUAGE PATHOLOGIST TRAVEL. Therapeutic Lovenox for anticoagulation for now continue coreg once able to swallow rate control with IV labetalol # Elevated HTN from holding po antihypertensives Labetalol IV PRN # insulin-dependent type 2 diabetes- with hyperglycemia Last Hgb A1c 10.1% Dose adjusted basal insulin, continue jardiance Humalog on sliding scale Diabetic diet once eval by [employer] PATHOLOGIST TRAVEL DVT prophylaxis therapeutic Lovenox Full code Patient requires inpatient stay overnight for management of acute CVA with AFib RVR and uncontrolled HTN w AMS Time Spent With Patient Time: Total time managing care of this patient today ____ minutes. Procedures Date of Service Date of Service: 02/21/23
[2023-02-21] MEDS: Aspirin 300 MG SUPP.RECT PR (17:09)
[2023-02-21 17:45] LABS: ABG Base Excess 3.6 mmol/L; ABG HCO3 26 mmol/L (22-26); ABG pCO2 32 mmHg (32-45); ABG pH 7.51 (7.35-7.45); ABG pO2 85 mmHg (83-108)
[2023-02-21] MEDS: Nitroglycerin 0.1 MG PATCH.TD24 0.2 MG TRANSDERMA (17:56)
[2023-02-21] MEDS: levalbuterol HCL 1.25 MG/3 ML VIAL.NEB INHALE (18:06)
--- NOTE | 2023-02-21 18:12 | PC.RT ---
ABG was ordered for the patient. Done and reported. Patient appears obtunded. He is barely arousable. Through excessive sternal rubbing and shouting, he will open his eyes for about five seconds and then he is back to sleep. I communicated with Dr. Herndon in regards to his plan of action. We agreed that at the very least, nasotracheal suctioning would benefit the patient. We discussed CPT with a percussor, however that may be out of the question considering the patients state and there is a possibility of micro aspiration.
--- NOTE | 2023-02-21 18:38 | PC.RT ---
Spoke with LINWOOD Mendez to request the order for NT suction be submitted. We further discussed that CPT with a percussor, or of any sort, while the patient is in this state is not feasible. Suctioning went well
[2023-02-21] MEDS: Acetaminophen Supp 650 MG SUPP.RECT PR (19:07)
[2023-02-21] MEDS: Labetalol HCL 100 MG/20 ML VIAL 20 MG IVPUSH (19:29)
[2023-02-21] MEDS: propofoL 200 MG/20 ML VIAL 100 MG IVPUSH (20:00)
[2023-02-21] MEDS: Rocuronium Bromide 50 MG/5 ML VIAL 30 MG IVPUSH (20:02)
[2023-02-21] MEDS: propofoL 200 MG/20 ML VIAL 50 MG IVPUSH (20:03)
[2023-02-21] MEDS: propofoL 1,000 MG/100 ML VIAL 27.5 MG IVCONT ×2 (20:10→22:17)
[2023-02-21 20:13] LABS: Glucose, Whole Blood 204 mg/dL (60-115)
[2023-02-21 20:19] LABS: MANUAL DIFF FLAG NO
[2023-02-21 20:21] LABS: Basophils Percent Auto 0.3 % (0-2); Hematocrit 38.8 % (42.0-52.0); Imm Gran Abs Auto 0.08 X10*3/uL (0.00-0.03); Imm Gran Pct Auto 0.6 % (0.0-0.4); Lymphocytes Absolute Auto 0.6 X10*3/uL (1.2-4.9); Lymphocytes Percent Auto 4.4 % (20-40); Mean Corpuscular HGB Conc 30.9 g/dl (31.0-36.0); Mean Corpuscular Hemoglobin 24.3 pg (27.0-33.0); Mean Corpuscular Volume 78.5 fL (80.0-98.0); Mean Platelet Volume 10.7 fL (9.4-12.4); Monocytes Absolute Auto 1.1 X10*3/uL (0.1-1.2); Monocytes Percent Auto 7.7 % (2-11); Neutrophils Absolute Auto 12.6 x10*3/uL (2.0-8.3); Platelet Count 462 X10*3/uL (160-400); Red Blood Count 4.94 X10*6/uL (4.60-5.80); Red Cell Distribution Width 14.2 % (11.0-16.0); White Blood Count 14.5 X10*3/uL (4.8-10.8)
[2023-02-21 20:28] LABS: Ammonia 38 umol/L (13-55)
--- NOTE | 2023-02-21 20:33 | PM.EVENT ---
Event Note Date of Service: 02/21/23 Event Note: Nurse contacted previous provider Dr Murphy that pt was lethargic and unresponsive. Dr Murphy evaluated the patient and contacted Dr kramer , ICU provider who accepted the patient. CT head pending at the time of transfer. Will put in ICU transfer orders for closer monitoring Time Spent With Patient Time: Total time managing care of this patient today ____ minutes.
[2023-02-21 20:35] LABS: Phosphorus 4.2 mg/dL (2.7-4.5)
[2023-02-21 20:36] LABS: Magnesium 1.9 mg/dL (1.6-2.6)
--- NOTE | 2023-02-21 20:37 | P.PNCC_ITS ---
Critical Care Event Note Summary Date of Service: 02/21/23 Code activated: No Narrative: This case had a high probability of a clinically significant, sudden, or life threatening deterioration of this patient's condition which required my full and direct attention, intervention and personal management. Critical Care Time (minutes): 90 Comment: History of Present illness/brief hospital course 52-year-old male past medical history of diabetes, hypertension, hyperlipidemia, right BKA, diabetic neuropathy, HFrEF, persistent atrial fibrillation anticoagulated, hx CVA 1 month ago with right middle cerebral artery territory infarction, hx noncompliance with medications presented to the ED via EMS early this morning when his noticed he was not speaking and not moving his left side. Went to bed around midnight asymptomatic. On exam patient remains aphasic and history obtained from ED provider and report. On arrival, pt in afib with rvr, rate 133, hypertensive to 172/112, tachypneic to 30. ED provider gave labetolol 10mg and metoprolol 5mg with improvement in HR to 106-118. CBC baseline. Renal function baseline, lytes normal. Initial trop 49, ck 208. Head Ct negative for acute intracranial process. There is right posterior parietal and temporal lobe hypodensity, likekly old infarct without progression. Case discussed with neurology who did not recommend TPA or CTA head per ed provider. ? Patient was admitted to the floor with diagnosis of acute CVA and aphasia, metabolic encephalopathy and left upper extremity weakness noted on exam, again per Neurology ordered no tPA was administered an MRI was ordered for 24 hours after admission but he was not done.? Reportedly the patient did receive 120 mg of Lovenox around 11:00 o'clock 2 day 02/21/2023 and 300 mg of rectal aspirin at 17:00. ?Statin had been ordered as well as an echo and a neurology consult.? Prior to this the patient had been on Eliquis which has been held. patient had been started on Zosyn for possible aspiration pneumonitis. An ICU consult was called around 07:00 o'clock due to worsening mental status changes which had been initially noted around 16:00 by nursing personnel and was reported to the physician at the time who noted that the patient's blood pressure was above 200 and ordered some labetalol. As Above, I immediately went to see the patient upon the consult was called and was eminent that the patient had significant obtunded state, high respiratory rate in the 40s, accessory muscle use age, significant obtundation lack of response to verbal, sternal stimuli with an overall GCS of 6.? His blood pressure at the time was 212/110, heart rate 130 and irregular, respirations 45 with some intermittent gasping for air.? Given my concern, I had to cardoso the patient to obtain a head CT, 20 mg IV B labetalol was was given prior to transfer and subsequently patient was transferred to the ICU. ROS: unable to obtain Past medical history Asthma Benign essential hypertension BKA stump complication Callus under metatarsal head Cardiomyopathy Chronic diabetic neuropathy CKD (chronic kidney disease) stage 3, GFR 30-59 ml/min Diabetes mellitus with today's hemoglobin A1c of 10.1. ? 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 foot Pure hypercholesterolemia Smoker Umbilical hernia Past surgical history H/O hernia repair Status post amputation of left great toe Status post below knee amputation of right lower extremity Status post debridement Status post incision and drainage Status post incision and drainage Family Hx: unable to obtain Social Hx: Pt is an exsmoker, does not ambulate due to RBKA, has a girlfriend and HCP Marli Bolton [phone] Allergies NKDA, intolerant to gabapentin due to SE of nausea and dissiness Home Meds' Please see Med Rec PHYSICAL EXAM: PHYSICAL EXAM: VS:?212/110, 130 IRREG, 45, 96% ON 4l nc General:? completely obtunded, unable to respond to verbal, touch or sternal rub stimuli Skin:? old right BKA and other older surgical scars. No edema. HEENT:? Head is normocephalic, atraumatic, pupils equal 3 mm nonreactive bilaterally. Unable to do EOM. Buccal mucosa dry, no teeth on the top aspect. Poor dentition on the bottom. Tongue appears to have its tip towards the left side. Cardiac:? Irregularly irregular average 130 beats per minute. No murmurs, rubs, gallops. Pulmonary:? Poor inspiratory effort with some gasping, bilateral coarseness and rhonchi present with most prominent sounds on the right Base. No wheezes. No crackles. Abdomen:? Protuberant, positive bowel sounds in all 4 quadrants.? Soft Musculoskeletal:? Right BKA as above, otherwise unable to perform involuntary movements. Passive range of motion of upper lower extremities at the major joints showed no cogwheeling. Although some a stiffness is noted throughout the left upper extremity at the elbow level, no crepitus. No leg edema on the left. Neurologic:? As above, Completely obtunded, unable to further assess, according to admission nurse, the patient had been aphasic and unable to follow commands. Vascular:? 1+ pulses upper and Leftlower extremity distally LABS AND ADMISSION IMAGES REVIEWED ASSESSMENT: 1.??? ACUTE RIGHT-SIDED CVA WITH HEMORRHAGIC CONVERSION AND SURROUNDING EDEMA, HEMISPHERIC SHIFT 2.??? METABOLIC ENCEPHALOPATHY 3.??? ACUTE KIDNEY INJURY WITH CREATININE OF 2.2, BASELINE OF 1.5 4.??? HYPERTENSIVE EMERGENCY 5.??? SUSPECTED BILATERAL ASPIRATION PNEUMONITIS 6.??? HYPO ALBUMINEMIA WITH LEVEL OF 2.4 7.?ILLNESS RELATED THROMBOCYTOSIS 8.??? REACTIVE VERSUS INFECTIVE LEUKOCYTOSIS OF 14.5 9.??? MICROCYTIC ANEMIA WITH H&H OF 12.0 AND 30.8 RESPECTIVELY MCV OF 78.5 RULE OUT IRON DEFICIENCY VERSUS MICROSCOPIC BLEEDING VERSUS CHRONIC DISEASE 10. CHRONIC ATRIAL FIBRILLATION WITH RAPID VENTRICULAR RESPONSE? PLAN OF CARE: While in CT? Images were reviewed by me and it was eminent that the patient had a right basal ganglia hemorrhagic conversion with surrounding edema which seems to be causing midline shift. At this time, my decision to intubate the patient was made and this was successful, please see the procedure note for any needed details, right IJ CVL was also placed without any complications.? A patient also received 60 mg IV push of protamine sulfate given previous administration of low-molecular weight heparin. The above case was discussed in detail with Dr. Orozco and the suspected CT findings where confirmed later by [facility].? The above-mentioned attending discussed the case with [facility] and they had requested us to start 3% saline for a total of 500 cc which has been started.? His blood pressure is already below 130 after starting propofol administration and I did not have the need to start the nicardipine drip even though it was ordered. Post intubation central line placement x-ray was reviewed by me and shows the line in good position, endotracheal tube about 4 cm above the triston, no pneumothorax, no other acute findings.? A copy of initial head CT, today's follow-up CT as well as x-ray were requested on a CD to be sent to [facility]. Patient has been accepted to [facility] he is going to daily 5, room 14, accepting physician is Dr Philip. 0900 pm I spoke to the patient's healthcare proxy who is his girlfriend Marli Blancor [phone] who is aware of all the events and the fact the patient has been transferred to [facility], she consents. Critical care time used for critical evaluation of this patient, diagnosis, treatment and coordination of care, review her records and documentation TOTAL CRITICAL CARE TIME 90 MIN . discussion and coordination with consultants, completely separate from any procedures performed. .? Patient's care was discussed in detail with Dr. Samayoa.? He is aware of all the above as well as the plan of care for this patient.
--- NOTE | 2023-02-21 20:38 | PM.DS ---
DS: Providers Provider Date of Service: 02/21/23 Date of admission: 02/20/23 11:40 Date of discharge: 02/21/23 Primary care physician: Gabe Chisholm MD Admitting clinician: Fernanda Marshall Attending physician on admission: Casandra Herndon Consults: 02/20/23 08:00 Consult to Neurology Stat Consulting Provider: [facility] Reason for consultation: stroke Has provider been notified: No 02/20/23 11:44 Consult to Neurology Routine Consulting Provider: Italia Cuenca Reason for consultation: cva 02/20/23 16:20 Consult to Cardiology Routine Consulting Provider: [facility] [place] [facility] Reason for consultation: afib rvr, chf, cva Attending physician on discharge: Pierce Samayoa Discharging clinician: Gopal Luciano DS: Transfer Hospital Acceptance Reason for Transfer: Acute hemorrhagic conversion of ischemic stroke with surrounding edema and midline shift Name of Facility: [facility] Accepting Provider: Dr Philip DS: Diagnosis Discharge Diagnosis (1) Acute CVA (cerebrovascular accident): Status: Acute (2) Decompensated heart failure: Status: Acute (3) Atrial fibrillation with rapid ventricular response: Status: Acute (4) Diabetes mellitus: Status: Acute (5) New onset of congestive heart failure: Status: Acute DS: Summary Hospital Course Hospital Course: ADMISSION/DISCHARGE DIAGNOSIS 1.??? ACUTE RIGHT-SIDED CVA WITH HEMORRHAGIC CONVERSION AND SURROUNDING EDEMA, HEMISPHERIC SHIFT 2.??? METABOLIC ENCEPHALOPATHY 3.??? ACUTE KIDNEY INJURY WITH CREATININE OF 2.2, BASELINE OF 1.5 4.??? HYPERTENSIVE EMERGENCY 5.??? SUSPECTED BILATERAL ASPIRATION PNEUMONITIS 6.??? HYPO ALBUMINEMIA WITH LEVEL OF 2.4 7.?ILLNESS RELATED THROMBOCYTOSIS 8.??? REACTIVE VERSUS INFECTIVE LEUKOCYTOSIS OF 14.5 9.??? MICROCYTIC ANEMIA WITH H&H OF 12.0 AND 30.8 RESPECTIVELY MCV OF 78.5 RULE OUT IRON DEFICIENCY VERSUS MICROSCOPIC BLEEDING VERSUS CHRONIC DISEASE 10. CHRONIC ATRIAL FIBRILLATION WITH RAPID VENTRICULAR RESPONSE Past medical history Asthma Benign essential hypertension BKA stump complication Callus under metatarsal head Cardiomyopathy Chronic diabetic neuropathy CKD (chronic kidney disease) stage 3, GFR 30-59 ml/min Diabetes mellitus with today's hemoglobin A1c of 10.1. ? 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 foot Pure hypercholesterolemia Smoker Umbilical hernia Past surgical history H/O hernia repair Status post amputation of left great toe Status post below knee amputation of right lower extremity Status post debridement Status post incision and drainage Status post incision and drainage History of Present illness/brief hospital course 52-year-old male past medical history of diabetes, hypertension, hyperlipidemia, right BKA, diabetic neuropathy, HFrEF, persistent atrial fibrillation anticoagulated, hx CVA 1 month ago with right middle cerebral artery territory infarction, hx noncompliance with medications presented to the ED via EMS early this morning when his noticed he was not speaking and not moving his left side. Went to bed around midnight asymptomatic. On exam patient remains aphasic and history obtained from ED provider and report. On arrival, pt in afib with rvr, rate 133, hypertensive to 172/112, tachypneic to 30. ED provider gave labetolol 10mg and metoprolol 5mg with improvement in HR to 106-118. CBC baseline. Renal function baseline, lytes normal. Initial trop 49, ck 208. Head Ct negative for acute intracranial process. There is right posterior parietal and temporal lobe hypodensity, likekly old infarct without progression. Case discussed with neurology who did not recommend TPA or CTA head per ed provider. ? Patient was admitted to the floor with diagnosis of acute CVA and aphasia, metabolic encephalopathy and left upper extremity weakness noted on exam, again per Neurology ordered no tPA was administered an MRI was ordered for 24 hours after admission but he was not done.? Reportedly the patient did receive 120 mg of Lovenox around 11:00 o'clock 2 day 02/21/2023 and 300 mg of rectal aspirin at 17:00. ?Statin had been ordered as well as an echo and a neurology consult.? Prior to this the patient had been on Eliquis which has been held. An ICU consult was called around 07:00 o'clock due to worsening mental status changes which had been initially noted around 16:00 by nursing personnel and was reported to the physician at the time who noted that the patient's blood pressure was above 200 and ordered some labetalol. I immediately went to see the patient, it was eminent that the patient had a significant obtunded state, high respiratory rate in the 40s, accessory muscle use age,lack of response to verbal, sternal stimuli with an overall GCS of 6.? His blood pressure at the time was 212/110, heart rate 130 and irregular, respirations 45 with some intermittent gasping for air.? Given my concern, I had to cardoso the patient to obtain a head CT, 20 mg IV B labetalol was was given prior to transfer and subsequently patient was transferred to the ICU.? Head CT Images were reviewed by me and it was eminent that the patient had a right basal ganglia hemorrhagic conversion with surrounding edema which seems to be causing midline shift. At this time, my decision to intubate the patient was made and this was successful, please see the procedure note for any needed details, right IJ CVL was also placed without any complications.? A patient also received 60 mg IV push of protamine sulfate given previous administration of low-molecular weight heparin. The above case was discussed in detail with Dr. Orozco and the suspected CT findings where confirmed later by [facility].? The above-mentioned attending discussed the case with [facility] and they had requested us to start 3% saline for a total of 500 cc which has been started.? His blood pressure is already below 130 after starting propofol administration and I did not have the need to start the nicardipine drip even though it was ordered. Post intubation central line placement x-ray was reviewed by me and shows the line in good position, endotracheal tube about 4 cm above the triston, no pneumothorax, no other acute findings.? A copy of initial head CT, today's follow-up CT as well as x-ray were requested on a CD to be sent to [facility]. Patient has been accepted to [facility] he is going to daily 5, room 14, accepting physician is Dr Philip. ?21:45, patient is becoming hypertensive again with blood pressure of 161/83, this point nicardipine drip was started. 0900 pm I spoke to the patient's healthcare proxy who is his girlfriend Marli Bolton [phone] who is aware of all the events and the fact the patient has been transferred to [facility], she consents. Critical care time used for critical evaluation of this patient, diagnosis, treatment and coordination of care, review her records and documentation TOTAL CRITICAL CARE TIME??60 MIN . discussion and coordination with consultants, completely separate from any procedures performed. Patient's care was discussed in detail with Dr. Samayoa. He is aware of all the above as well as the plan of care for this patient. ? This discharge summary was dictated, apologies in advance for any type of typo issues caused with mechanical transfer of the providers voice into the word system ? ? Time Spent with Patient Time attestation: Total time managing care of this patient today ____ minutes. Discharge coordination time: Greater than 30 minutes Quality: Safe Use of Opioids Does Pt have an Active Cancer Diagnosis on the Problem List?: No Quality: Stroke Does the patient have a stroke diagnosis?: Yes Reason for No Anti-thrombotic at DC: Adverse reaction to drug Reason for No Anticoagulant at DC: Adverse reaction to drug Reason Not Initiating IV-Tpa: N/A - Med Ordered (per Neurologist decision) Reason for No Anti-thrombotic by Day Two: N/A - Med Ordered Reason for No Statin at DC: Not indicated (npo) Physical Exam Vital Signs: Vital Signs: Last Vital Signs Temp 103 F H 02/21/23 19:17 Pulse 116 H 02/21/23 19:17 Resp 36 H 02/21/23 19:17 BP 179/110 H 02/21/23 19:17 Pulse Ox 100 02/21/23 19:17 O2 Del Method Nasal Cannula 02/21/23 19:17 O2 Flow Rate 4 02/21/23 19:17 FiO2 80 02/21/23 20:13 BMI result Body Mass Index 39.6 DS: Data Data Completed and Pending Completed studies during hospitalization [Text1]: Procedures Detachment at Left 1st Toe, Complete, Open Approach (08/12/20) Detachment at Left 2nd Toe, Complete, Open Approach (08/12/20) Detachment at Right Lower Leg, Mid, Open Approach (06/27/22) Excision of Left Foot Subcutaneous Tissue and Fascia, Open Approach (05/26/20) Excision of Right Foot Subcutaneous Tissue and Fascia, Open Approach (06/27/22) Extraction of Left Foot Skin, External Approach (05/05/20) Insertion of Infusion Device into Superior Vena Cava, Percutaneous Approach (05/05/20) Introduction of Anesthetic Agent into Peripheral Nerves and Plexi, Percutaneous Approach (06/27/22) Ultrasonography of Superior Vena Cava, Guidance (05/05/20) Labs on day of discharge: Laboratory Results - last 24 hr 02/20/23 02/20/23 02/21/23 20:44 22:39 05:41 WBC RBC Hgb Hct MCV MCH MCHC RDW Plt Count MPV Immature Gran % (Auto) Neut % (Auto) Lymph % (Auto) [place] % (Auto) Eos % (Auto) Baso % (Auto) Lymph # (Auto) [place] # (Auto) Eos # (Auto) Baso # (Auto) Abs Immat Gran (auto) Absolute Neuts (auto) Absolute Nucleated RBC Nucleated RBC % (auto) O2 Saturation ABG pH at Pt Temp ABG pCO2 at Pt Temp ABG pO2 at Pt Temp ABG HCO3 ABG Base Excess (Actual) Sodium Potassium Chloride Carbon Dioxide Anion Gap BUN Creatinine Estim Creat Clear Calc Estimated GFR POC Glucose 230 H 193 H Random Glucose Calcium Phosphorus Magnesium Ammonia Troponin I High Sens 62.5 H 02/21/23 02/21/23 02/21/23 06:01 07:08 07:48 WBC 12.6 H RBC 4.79 Hgb 11.6 L Hct 37.0 L MCV 77.2 L MCH 24.2 L MCHC 31.4 RDW 14.1 Plt Count 457 H MPV 10.5 Immature Gran % (Auto) 0.6 H Neut % (Auto) 79.1 H Lymph % (Auto) 8.0 L [place] % (Auto) 11.7 H Eos % (Auto) 0.2 Baso % (Auto) 0.4 Lymph # (Auto) 1.0 L [place] # (Auto) 1.5 H Eos # (Auto) 0.0 Baso # (Auto) 0.1 Abs Immat Gran (auto) 0.08 H Absolute Neuts (auto) 9.9 H Absolute Nucleated RBC 0.000 Nucleated RBC % (auto) 0.0 O2 Saturation ABG pH at Pt Temp ABG pCO2 at Pt Temp ABG pO2 at Pt Temp ABG HCO3 ABG Base Excess (Actual) Sodium Potassium Chloride Carbon Dioxide Anion Gap BUN Creatinine Estim Creat Clear Calc Estimated GFR POC Glucose 212 H 179 H Random Glucose Calcium Phosphorus Magnesium Ammonia Troponin I High Sens 02/21/23 02/21/23 02/21/23 07:48 11:02 16:14 WBC RBC Hgb Hct MCV MCH MCHC RDW Plt Count MPV Immature Gran % (Auto) Neut % (Auto) Lymph % (Auto) [place] % (Auto) Eos % (Auto) Baso % (Auto) Lymph # (Auto) [place] # (Auto) Eos # (Auto) Baso # (Auto) Abs Immat Gran (auto) Absolute Neuts (auto) Absolute Nucleated RBC Nucleated RBC % (auto) O2 Saturation ABG pH at Pt Temp ABG pCO2 at Pt Temp ABG pO2 at Pt Temp ABG HCO3 ABG Base Excess (Actual) Sodium 141 Potassium 3.8 Chloride 107 Carbon Dioxide 23 Anion Gap 15 BUN 23 H Creatinine 2.00 H Estim Creat Clear Calc 52.2 Estimated GFR 35 POC Glucose 180 H 190 H Random Glucose 206 H Calcium 8.5 Phosphorus Magnesium Ammonia Troponin I High Sens 02/21/23 02/21/23 02/21/23 17:41 20:10 20:13 WBC 14.5 H RBC 4.94 Hgb 12.0 L Hct 38.8 L MCV 78.5 L MCH 24.3 L MCHC 30.9 L RDW 14.2 Plt Count 462 H MPV 10.7 Immature Gran % (Auto) 0.6 H Neut % (Auto) 87.0 H Lymph % (Auto) 4.4 L [place]ck[place] % (Auto) 7.7 Eos % (Auto) 0.0 Baso % (Auto) 0.3 Lymph # (Auto) 0.6 L [place] # (Auto) 1.1 Eos # (Auto) 0.0 Baso # (Auto) 0.0 Abs Immat Gran (auto) 0.08 H Absolute Neuts (auto) 12.6 H Absolute Nucleated RBC 0.000 Nucleated RBC % (auto) 0.0 O2 Saturation 97.0 ABG pH at Pt Temp 7.51 H ABG pCO2 at Pt Temp 32 ABG pO2 at Pt Temp 85 ABG HCO3 26 ABG Base Excess (Actual) 3.6 Sodium Potassium Chloride Carbon Dioxide Anion Gap BUN Creatinine Estim Creat Clear Calc Estimated GFR POC Glucose 204 H Random Glucose Calcium Phosphorus Magnesium Ammonia Troponin I High Sens 02/21/23 02/21/23 02/21/23 20:14 20:14 20:14 WBC RBC Hgb Hct MCV MCH MCHC RDW Plt Count MPV Immature Gran % (Auto) Neut % (Auto) Lymph % (Auto) [place] % (Auto) Eos % (Auto) Baso % (Auto) Lymph # (Auto) [place] # (Auto) Eos # (Auto) Baso # (Auto) Abs Immat Gran (auto) Absolute Neuts (auto) Absolute Nucleated RBC Nucleated RBC % (auto) O2 Saturation ABG pH at Pt Temp ABG pCO2 at Pt Temp ABG pO2 at Pt Temp ABG HCO3 ABG Base Excess (Actual) Sodium Potassium Chloride Carbon Dioxide Anion Gap BUN Creatinine Estim Creat Clear Calc Estimated GFR POC Glucose Random Glucose Calcium Phosphorus 4.2 Magnesium 1.9 Ammonia 38 Troponin I High Sens Discharge Plan Discharge Anticipated Discharge Date/Time: 02/21/23 21:14 Patient Disposition: Xfer Acute Care Hospital Discharge Diagnosis: Hemorrhagic stroke conversion with edema and midline shift Referrals: Gabe Chisholm MD [Primary Care Provider] - 1 Week Discharge Medications: No Action (DME) FreeStyle Swati 2 Sensor Kit See Rx Instructions .Route Qty: 1 8RF Rx Instructions: As directed (DME) FreeStyle Swati 2 [place] Misc See Rx Instructions .Route Qty: 1 0RF Rx Instructions: As directed (DME) insulin syringe-needle U-100 [BD Insulin Syringe] 1 mL 29 gauge x 1/2 syringe See Rx Instructions .Route Qty: 100 8RF Rx Instructions: 3-4 times per day (DME) blood-glucose meter [FreeStyle Lite Meter] Kit See Rx Instructions .Route Qty: 1 0RF Rx Instructions: test 3 times daily (DME) FreeStyle Lite Strips Strip See Rx Instructions .Route Qty: 100 8RF Rx Instructions: test 3 times daily (DME) Ultra-Light Rollator Misc See Rx Instructions .Route Qty: 1 0RF Rx Instructions: As directed (DME) blood-glucose meter [FreeStyle Lite Meter] Kit See Rx Instructions .ROUTE .MEDSUPPLY Qty: 1 0RF Rx Instructions: As directed 3 times a day (DME) FreeStyle Lite Strips Strip See Rx Instructions .ROUTE .MEDSUPPLY Qty: 100 12RF Rx Instructions: As directed 3 times a day (DME) lancets [FreeStyle Lancets] 28 gauge misc See Rx Instructions .Route Qty: 100 12RF Rx Instructions: test 3 times daily atorvastatin 80 mg tablet 80 mg PO BEDTIME albuterol sulfate [Ventolin HFA] 90 mcg/actuation HFA aerosol inhaler 2 puff inhalation Q4-6H PRN (Reason: Shortness Of Breath Or Wheezing) carvedilol 12.5 mg Tablet 12.5 mg PO BID Qty: 60 0RF Protocol: Hold for SBP/HR < HOLD for SBP < : 90 HOLD for HR < : 60 aspirin 81 mg Tablet,Delayed Release (Dr/Ec) 81 mg PO DAILY Qty: 30 0RF Jardiance 10 mg Tablet 10 mg PO DAILY Qty: 30 0RF Eliquis 5 mg Tablet 5 mg PO BID Qty: 60 0RF insulin glargine [Lantus U-100 Insulin] 100 unit/mL Solution 10 unit subcut BEDTIME Qty: 10 0RF Discharge Orders: Discharge Order (Routine); Ordered 02/21/23 Ordered By: Gopal Luciano Diet: npo Activity on Discharge: per md Stand Alone Forms: Patient Portal Discharge page Care Plan Goals: per md Health Concerns: per md Plan of Treatment: neuro surgical eval Assessment: per md Discharge Date/Time: 02/21/23 22:30
--- NOTE | 2023-02-21 20:38 | W.PM.CCHP ---
Procedures Date of Service Date of Service: 02/22/23 Central Line Placement Right IJ: Central Line Comments: emergent no concent Consent for Procedure: Emergent-no informed consent obtained Time out performed: Yes Sterile Technique Used: Yes Patient placed on monitor/pulse ox: Yes MD prep: mask, gown and gloves Central line prep: Chlorhexidine scrub Ultrasound used for placement: Yes Central line lumen inserted: triple Post procedure: sutured in place, good blood return, all ports aspirated, flushed, capped and sterile dressing applied Post procedure x-ray: tip of catheter in good position and no pneumothorax seen Patient tolerated procedure: well Complications: none
--- NOTE | 2023-02-21 20:39 | W.PM.CCHP ---
Procedures Date of Service Date of Service: 02/22/23 Intubation Consent for Procedure: Emergent-no informed consent obtained Time out performed: Yes Sedative: propofol Mg given: 50 Paralytic: rocuronium Mg given: 30 Laryngoscope: fiber optic video scope ET tube size: 7.5 ET tube uncuffed: Yes Tube secured depth (cm): 24 Tube secured location: lips Tube placement confirmation: visualized tube passing through cords, equal breath sounds bilaterally, no breath sounds over epigastrium and confirmation by capnometry Patient tolerated procedure: well and no complications Intubation complications: none
[2023-02-21 20:41] LABS: Alanine Aminotransferase 11 U/L (0-40); Albumin Level 2.4 g/dL (3.5-5.0); Alkaline Phosphatase 111 U/L (39-117); Anion Gap 16 (12-20); Aspartate Amino Transferase 19 U/L (5-37); Bilirubin Total 0.6 mg/dL (0.0-1.0); Blood Urea Nitrogen 27 mg/dL (9-16); Calcium 8.7 mg/dL (8.4-10.2); Carbon Dioxide 23 mmol/L (22-29); Chloride 105 mmol/L (96-108); Creatinine Clr Calc Pharmacy 47.5; Estimated Glomerular Filt Rate 32; Glucose Random 190 mg/dL (60-115); Potassium 4.3 mmol/L (3.3-5.1); Sodium 140 mmol/L (135-145); Total Protein 6.5 g/dL (6.5-8.0)
[2023-02-21] MEDS: Protamine Sulfate 50 MG/5 ML VIAL 60 MG IV (20:47)
[2023-02-21] MEDS: niCARdipine HCL 25 MG in 0.9 % Sodium Chloride 250 ML 52 MG IVCONT (21:30)
--- NOTE | 2023-02-21 22:49 | PC.NURSE ---
Pt to ICU from CT scan at 1939. Pt obtunded, BP 179/125. HR 120-130s on tele. SpO2 stable. Pt emergently intubated by LINWOOD Herron. Propofol started?@ 40 mcg/kg/min. ETT # 7.5, 27 cm?@ lip. Vent settings - ACVC /450/5/80%. CVC placed by PA.?Cxr completed and placement confirmed. Unable to place Li at this time - multiple attempts made, PA aware. Pt accepted to [facility] [place]. HCP updated by LINWOOD.? 2046 - 60 mg protamine sulfate given per LINWOOD 2052 - sodium chloride 3% started?@ 20 ml/hr 2099 - Report given to [facility] nurse - Vincent 2129 - BP systolic 160s - nicardipine gtt started at 5 mg/hr? per LINWOOD Rectal temp 104.5 - PA aware no new orders at this time 2199 - Report given to EMS
== END 2023-02-21 22:30 | disposition short-term general hospital (02) | DRG 45 ==
LOC: HO.ED 09:52 → HO.EDOVER 11:48 → HO.IMC 16:09 → HO.ICU 02-21 19:30
PROVIDERS: Physician Assistant Medical; Student in an Organized Health Care Education/Training Program; Admitting Provider Physician Assistant; Emergency Provider Emergency Medicine; PCP Internal Medicine; Visit Provider Student in an Organized Health Care Education/Training Program
DX: I63.9 Cerebral infarction, unspecified (principal); I61.8 Other nontraumatic intracerebral hemorrhage; G93.41 Metabolic encephalopathy; I50.23 Acute on chronic systolic (congestive) heart failure; I48.19 Other persistent atrial fibrillation; E87.3 Alkalosis; E78.00 Pure hypercholesterolemia, unspecified; R47.01 Aphasia; D75.839 Thrombocytosis, unspecified; F17.210 Nicotine dependence, cigarettes, uncomplicated; I25.5 Ischemic cardiomyopathy; R00.0 Tachycardia, unspecified; I11.0 Hypertensive heart disease with heart failure; I25.10 Atherosclerotic heart disease of native coronary artery without angina pectoris; Z71.6 Tobacco abuse counseling; Z91.148 Patient's other noncompliance with medication regimen for other reason; Z89.511 Acquired absence of right leg below knee; Z79.01 Long term (current) use of anticoagulants; Z79.4 Long term (current) use of insulin; Z79.82 Long term (current) use of aspirin; Z79.899 Other long term (current) drug therapy
CPT/HCPCS: 36415; 36600; 70450; 71045; 71250; 80048; 80053; 80061; 82140; 82550; 82803; 82947; 83735; 83880; 84100; 84484; 85025; 85610; 85730; 87040; 92950; 93005; 94002; 94640; 94799; 95816; 99285; J1160; J1650; J1940; J7131

== ENCOUNTER → 2023-02-20 08:00 | Outpatient (BNV) | payer OTHER, SELFPAY | PROVIDERS: Emergency Provider Emergency Medicine; PCP Internal Medicine; Visit Provider Internal Medicine Cardiovascular Disease | DX: I48.91 Unspecified atrial fibrillation (principal) | CPT/HCPCS: 93010 ==

== ENCOUNTER → 2023-02-20 11:40 | Outpatient (BNV) | payer OTHER, SELFPAY | PROVIDERS: Admitting Provider Physician Assistant; Emergency Provider Emergency Medicine; PCP Internal Medicine; Visit Provider Internal Medicine Cardiovascular Disease | DX: I48.91 Unspecified atrial fibrillation (principal); I50.9 Heart failure, unspecified | CPT/HCPCS: 99222 ==

== ENCOUNTER → 2023-02-20 11:40 | Outpatient (BNV) | payer OTHER, SELFPAY | PROVIDERS: Admitting Provider Physician Assistant; Emergency Provider Emergency Medicine; PCP Internal Medicine; Visit Provider Physician Assistant Medical | DX: G93.41 Metabolic encephalopathy (principal); N17.9 Acute kidney failure, unspecified; I16.1 Hypertensive emergency | CPT/HCPCS: 31500; 36556; 99291 ==

== ENCOUNTER → 2023-02-20 11:40 | Outpatient (BNV) | payer OTHER, SELFPAY | PROVIDERS: Admitting Provider Physician Assistant; Emergency Provider Emergency Medicine; PCP Internal Medicine; Visit Provider Physician Assistant | DX: I50.9 Heart failure, unspecified (principal); I48.91 Unspecified atrial fibrillation; I63.9 Cerebral infarction, unspecified; E11.8 Type 2 diabetes mellitus with unspecified complications | CPT/HCPCS: 99223; 99233 ==